=== PATIENT | male | born 1965 | race Caucasian/White ===

== ENCOUNTER 2023-11-02 08:38 | Inpatient (IN) | payer SELFPAY ==
[2023-11-01] VITALS (8 sets, daily range): BP systolic 85–168; BP diastolic 49–85; BMI 22.3
[2023-11-01 13:43] LABS: Glucose - Point of Care 192 mg/dl (70-99)
--- NOTE | 2023-11-01 13:47 | ED.GENMED ---
History of Present Illness
<DAVID Mark - Last Filed: 11/04/23 14:51>
General
Chief Complaint: Musculo-Skeletal Complaint
Source: patient
Exam Limitations: none
Time Seen by Provider: 11/01/23 13:41
Nursing documentation reviewed up to this point in time: agreed with
Travel History
Have you had any contact with someone who has COVID-19?: No
Do you have any symptoms of coronavirus? Fever > 100 degrees, chills, cough, shortness of breath, sore throat, loss of taste or smell, muscle aches, or headache?: No
History of Present Illness
History of Present Illness:
58 yr old male brought by EMS for evaluation. EMS reports reported he fell out of his car and has obvious deformity to right tib/fib . Patient is awake alert he is a poor historian he reports has a history of cardiac disease, stents
hypertension insulin-dependent diabetes hypothyroidism. He reports today prior to arrival he was driving had blurred vision however got to where he was going and then got out of the car and fell. He believes he may have got lightheaded dizzy but
does not believe he lost consciousness. He called EMS. He presents with an obvious right lower leg deformity. He denies any pain. He denies any chest pain shortness of breath. He does report that he was recently hospitalized at [facility] for fall and it was his 'low blood sugar.' He also reports 'they drained fluid from my lung. '
Patient presently has no complaints he denies any headache lightheadedness. He reported that he is on blood thinners, Eliquis.
Patient reports he was recently hospitalized at [facility] [place] in the beginning of October. It was documented that time the patient presented to the ER there due to hypoglycemia.
Past History
<DAVID Mark - Last Filed: 11/04/23 14:51>
Past History
ED Past Medical History: HTN, Hypercholesterolemia and IDDM
ED Past Surgical History: None
Social History
Tobacco: Former smoker
Alcohol: Occasional
Personal:
Living: with family
Review of Systems
<DAVID Mark - Last Filed: 11/04/23 14:51>
Review of Systems
Allergies reviewed?: Yes
All Other Systems: ROS reviewed and negative except as documented in HPI and ROS
Constitutional: Reports no symptoms; Denies fever, fatigue or chills
EENT: Reports no symptoms
Respiratory: Reports no symptoms; Denies trouble breathing
Cardiac: Denies chest pain, diaphoresis or palpitations
ABD/GI: Reports no symptoms; Denies abdominal pain, nausea or vomiting
: Reports no symptoms
Musculoskeletal: Reports other ( right lower leg deformity )
Skin: Reports no symptoms
Neurological: Reports dizzy; Denies headache, weakness or numbness
Psychiatric: Reports no symptoms
Phy Exam
<DAVID Mark - Last Filed: 11/04/23 14:51>
General Physical Exam
General Presentation: no apparent distress
General age: appears stated age
General Skin: warm and dry
General Habitus: normal
General Mental: alert
General Hydration: dry mucous membranes
Cardiovascular Exam
Cardiovascular Exam: regular rate/rhythm, no murmur and normal peripheral pulses
Pulmonary Exam
Pulmonary Exam: lungs clear and no respiratory distress
Gastrointestinal Exam
Gastrointestinal Exam: non tender, soft and other (Brown stool heme-negative)
Neurological Exam
Neurological Exam: alert and oriented x3
Musculoskeletal Exam
Musculoskeletal Exam: other (rle with strong pulses + obvious deformity to right lower leg )
Skin Exam
Skin Exam: normal color and warm/dry
Course
<DAVID Mark - Last Filed: 11/04/23 14:51>
Orders/Labs/Results
Orders:
Orders
11/01/23 13:39
Ankle, Right 3 view CR [CR Ankle - Right Min 3 Views *] Urgent
Comment:
Reason For Exam: pain and deformity.
CR Leg Tibia/fibula Right 2 Vw Urgent
Comment:
Reason For Exam: pain/ deformity
11/01/23 13:40
EKG [Electrocardiogram (*1)] Urgent
Reason for Study: Syncope
11/01/23 13:41
EKG- Treatment ONCE
11/01/23 13:56
Complete Blood Count/With Diff Urgent
Comprehensive Metabolic Panel Urgent
Ferritin Urgent
Comment: ADDON
Iron Urgent
Total Iron Binding Urgent
Vitamin B12 Urgent
Comment: ADDON
11/01/23 13:57
NT-proBNP Urgent
PT/INR [Prothrombin Time] Urgent
Troponin I Urgent
11/01/23 14:07
CT Head W/o Iv Contrast Urgent
Comment:
Reason For Exam: trauma
0.9% Sodium Chloride 1000 ml [Nss] 1,000 ml IV BOLUS
11/01/23 14:09
Chest [CR Chest - 2 Views ] Urgent
Comment:
Reason For Exam: dizzy
11/01/23 Dinner
Regular
At Your Request: Full Participation
11/01/23 16:03
Splints/Slings/Crut- Treatment ONCE
Location: Right
Type of Splint: Long Leg Posterior
11/01/23 16:22
CT Lower Ext W/o Iv Cont Rt Urgent
Comment:
Reason For Exam: fractures include down to ankle
11/01/23 17:05
Admit/Transfer Patient As Directed
Co-Sign Provider:
Level of Care: Observation services
Assign to:: Telemetry
Physician / Group: hospitalist
Diagnosis: fracture
Reason for Telemetry: Other
Other Reason for Telemetry: CHF history
Date to Stop Telemetry: 11/03/23
Time to Stop Telemetry: 11:00
11/01/23 17:07
Code Status As Directed
Resuscitation Status: Full Code
11/01/23 17:31
Add On- LAB Routine
Tests Added?: iron,tibc,ferritin,b12
11/01/23 18:34
0.9% Sodium Chloride 1000 ml [Nss] 1,000 ml IV 75 mls/hr
Dextrose 50%-Water [Dextrose 50% Syringe] 12.5 grams IV [id number] PRN
Glucagon [GlucaGen] 1 mg IM PRN PRN
11/01/23 18:34
ORTHOPEDIC CONSULT Routine
Consulting Provider: Colt Vasquez
Was physician already notified: Yes
Reason for consult: tib fib fracture
Activity As Directed
Activity Level: Bedrest
Bedside Glucose Monitoring As Directed
Frequency: AC&HS
Comment: Change to q6h if pt on TPN, tube feeding or not eating
Pneumatic Compression Sleeves As Directed
Type: Knee high
Vital Signs As Directed
Frequency: Per unit guidelines
DX Deep Vein Thrombosis Video Routine
11/01/23 20:00
HydrALAZINE [Apresoline] 25 mg PO BID
11/01/23 21:26
Pt Screening Request from Mario Alberto Routine
11/01/23 22:00
Insulin Detemir Levemir [Levemir] 8 units Subcutaneous Insulin Syringe [Syringe-Insulin] 0 unit SC HS
11/02/23
DX DVT Prevention Inpt Video Routine
11/02/23 00:11
Glucose Stat
Comment: pt accuchek > 400
11/02/23 01:15
Insulin Aspart Pen [Novolog Flexpen] 8 units SC NOW STA
11/02/23 02:13
Pt Screening Request from Mario Alberto Routine
11/02/23 02:53
Acetaminophen [Tylenol] 650 mg PO Q6HPRN PRN
11/02/23 06:58
Basic Metabolic Panel IN AM
Complete Blood Count/No Diff IN AM
Glycohemoglobin (HgbA1c) IN AM
Magnesium IN AM
Vitamin B12 IN AM
11/02/23 07:30
Insulin Aspart Corrective Low [Novolog Flexpen-Low Resistance] See Protocol SC AC
Levothyroxine [Synthroid] 112 mcg PO DAILY@0730
11/02/23 07:45
Weight Bearing Status As Directed
Weight bearing to: Right lower extremity
Type: Non Wt. bearing
11/02/23 08:00
Aspirin Low Dose EC [Aspir Low (Enteric Coated)] 81 mg PO DAILY
Atorvastatin [Lipitor] 40 mg PO DAILY
Carvedilol [Coreg] 12.5 mg PO DAILY
Multivitamin [Theragran] 1 tablet PO DAILY
11/02/23 08:04
Precautions As Directed
Type of Precautions: Other
Comment: fall precautions
11/02/23 08:05
Type+Screen Routine
11/02/23 08:23
CARDIOLOGY CONSULT Routine
Consulting Provider: Shane Amaya
Was physician already notified: Yes
Reason for consult: HFrEF cardiac risk assessment right leg fracture
11/02/23 08:28
Diabetes Management by Nurse Practitioner Routine
Consulting Provider: Lois Dawson
Was provider already notified?: Yes
Reason for Consult: Insulin Management
11/03/23 Breakfast
NPO
Allow oral meds: Yes
Allow clear liquids: No
11/03/23 07:00
Povidone Iodine 10% Solution [Povidone Iodine 10%] 114 ml 0.9% Sod Chloride 3000 ml Irr [Nss Irrigation Bag] 3,000 ml IRRIG OR
Tranexamic Acid 3,000 mg 0.9% Sodium Chloride 250 ml [Nss] 250 ml IRRIG OR
11/03/23 07:45
CeFAZolin 2 GRAM [Ancef] 2 grams in 10 ml IV PRE PROCEDURE
11/03/23 11:00
DC Protocol for Telemetry ONCE
Abnormal Lab Results
11/01/23 11/01/23 11/01/23
13:41 13:56 21:06
WBC 4.2 L 10^3/uL
(4.8-10.8)
RBC 2.65 L 10^6/uL
(4.70-6.10)
Hgb 8.6 L g/dL
(13.0-18.0)
Hct 25.4 L %
(39.0-52.0)
MCV 95.8 H fL
(80.0-94.0)
MCH 32.5 H pg
(27.0-31.0)
Absolute Lymphs (auto) 1.1 L 10^3/uL
(1.2-3.4)
Monocytes % 10.5 H %
(1.7-9.3)
Carbon Dioxide 32 H mmol/L
(22-30)
BUN 68 H mg/dl
(9-20)
Creatinine 2.7 H mg/dL
(0.7-1.3)
Glucose 169 H mg/dl
(70-99)
Hemoglobin A1c
Calcium 8.3 L mg/dl
(8.4-10.2)
Magnesium
TIBC 255 L ug/dl
(261-462)
Total Protein 6.1 L g/dl
(6.3-8.2)
POC Glucose 192 H mg/dl 400 H mg/dl
(70-99) (70-99)
Crossmatch IS Only
11/01/23 11/02/23 11/02/23
23:55 00:11 04:20
WBC
RBC
Hgb
Hct
MCV
MCH
Absolute Lymphs (auto)
Monocytes %
Carbon Dioxide
BUN
Creatinine
Glucose 394 H mg/dl
()
Hemoglobin A1c
Calcium
Magnesium
TIBC
Total Protein
POC Glucose 449 H mg/dl 122 H mg/dl
() ()
Crossmatch IS Only
11/02/23 11/02/23
06:58 08:05
WBC
RBC 2.23 L 10^6/uL
(4.70-6.10)
Hgb 7.2 L g/dL
(13.0-18.0)
Hct 21.5 L %
(39.0-52.0)
MCV 96.4 H fL
(80.0-94.0)
MCH 32.3 H pg
(27.0-31.0)
Absolute Lymphs (auto)
Monocytes %
Carbon Dioxide
BUN 63 H mg/dl
(920)
Creatinine 2.7 H mg/dL
(0.7-1.3)
Glucose 63 L mg/dl
(99)
Hemoglobin A1c 7.9 H %
(4.0-5.6)
Calcium 7.9 L mg/dl
(8.4-10.2)
Magnesium 2.4 H mg/dl
(1.6-2.3)
TIBC
Total Protein
POC Glucose
Crossmatch IS Only See Detail
11/02/23 06:58
11/02/23 06:58
Vital Signs
Initial and Last Documented VS:
Initial Vital Signs
Temp Pulse Resp BP Pulse Ox
98.2 F 60 18 85/55 97
11/01/23 13:35 11/01/23 13:35 11/01/23 13:35 11/01/23 13:35 11/01/23 13:35
Last Documented Vital Signs
Temp Pulse Resp BP Pulse Ox
98.5 F 75 12 129/71 99
11/04/23 13:29 11/04/23 14:04 11/04/23 13:29 11/04/23 14:04 11/04/23 08:20
Skin Tanner consulted with Physician
Skin Tanner consulted with physician?: Yes
Name of Physician Consulted: Edil
<Colt Metcalf, DO - Last Filed: 11/01/23 14:07>
Orders/Labs/Results
Orders:
Orders
11/01/23 13:39
Ankle, Right 3 view CR [CR Ankle - Right Min 3 Views *] Urgent
Comment:
Reason For Exam: pain and deformity.
CR Leg Tibia/fibula Right 2 Vw Urgent
Comment:
Reason For Exam: pain/ deformity
11/01/23 13:40
EKG [Electrocardiogram (*1)] Urgent
Reason for Study: Syncope
11/01/23 13:41
EKG- Treatment ONCE
11/01/23 13:56
Complete Blood Count/With Diff Urgent
Comprehensive Metabolic Panel Urgent
Ferritin Urgent
Comment: ADDON
Iron Urgent
Total Iron Binding Urgent
Vitamin B12 Urgent
Comment: ADDON
11/01/23 13:57
NT-proBNP Urgent
PT/INR [Prothrombin Time] Urgent
Troponin I Urgent
11/01/23 14:07
CT Head W/o Iv Contrast Urgent
Comment:
Reason For Exam: trauma
0.9% Sodium Chloride 1000 ml [Nss] 1,000 ml IV BOLUS
11/01/23 14:09
Chest [CR Chest - 2 Views ] Urgent
Comment:
Reason For Exam: dizzy
11/01/23 Dinner
Regular
At Your Request: Full Participation
11/01/23 16:03
Splints/Slings/Crut- Treatment ONCE
Location: Right
Type of Splint: Long Leg Posterior
11/01/23 16:22
CT Lower Ext W/o Iv Cont Rt Urgent
Comment:
Reason For Exam: fractures include down to ankle
11/01/23 17:05
Admit/Transfer Patient As Directed
Co-Sign Provider:
Level of Care: Observation services
Assign to:: Telemetry
Physician / Group: hospitalist
Diagnosis: fracture
Reason for Telemetry: Other
Other Reason for Telemetry: CHF history
Date to Stop Telemetry: 11/03/23
Time to Stop Telemetry: 11:00
11/01/23 17:07
Code Status As Directed
Resuscitation Status: Full Code
11/01/23 17:31
Add On- LAB Routine
Tests Added?: iron,tibc,ferritin,b12
11/01/23 18:34
0.9% Sodium Chloride 1000 ml [Nss] 1,000 ml IV 75 mls/hr
Dextrose 50%-Water [Dextrose 50% Syringe] 12.5 grams IV [id number] PRN
Glucagon [GlucaGen] 1 mg IM PRN PRN
11/01/23 18:34
ORTHOPEDIC CONSULT Routine
Consulting Provider: Colt Vasquez
Was physician already notified: Yes
Reason for consult: tib fib fracture
Activity As Directed
Activity Level: Bedrest
Bedside Glucose Monitoring As Directed
Frequency: AC&HS
Comment: Change to q6h if pt on TPN, tube feeding or not eating
Pneumatic Compression Sleeves As Directed
Type: Knee high
Vital Signs As Directed
Frequency: Per unit guidelines
DX Deep Vein Thrombosis Video Routine
11/01/23 20:00
HydrALAZINE [Apresoline] 25 mg PO BID
11/01/23 21:26
Pt Screening Request from Mario Alberto Routine
11/01/23 22:00
Insulin Detemir Levemir [Levemir] 8 units Subcutaneous Insulin Syringe [Syringe-Insulin] 0 unit SC HS
11/02/23
DX DVT Prevention Inpt Video Routine
11/02/23 00:11
Glucose Stat
Comment: pt accuchek > 400
11/02/23 01:15
Insulin Aspart Pen [Novolog Flexpen] 8 units SC NOW STA
11/02/23 02:13
Pt Screening Request from Mario Alberto Routine
11/02/23 02:53
Acetaminophen [Tylenol] 650 mg PO Q6HPRN PRN
11/02/23 06:58
Basic Metabolic Panel IN AM
Complete Blood Count/No Diff IN AM
Glycohemoglobin (HgbA1c) IN AM
Magnesium IN AM
Vitamin B12 IN AM
11/02/23 07:30
Insulin Aspart Corrective Low [Novolog Flexpen-Low Resistance] See Protocol SC AC
Levothyroxine [Synthroid] 112 mcg PO DAILY@0730
11/02/23 07:45
Weight Bearing Status As Directed
Weight bearing to: Right lower extremity
Type: Non Wt. bearing
11/02/23 08:00
Aspirin Low Dose EC [Aspir Low (Enteric Coated)] 81 mg PO DAILY
Atorvastatin [Lipitor] 40 mg PO DAILY
Carvedilol [Coreg] 12.5 mg PO DAILY
Multivitamin [Theragran] 1 tablet PO DAILY
11/02/23 08:04
Precautions As Directed
Type of Precautions: Other
Comment: fall precautions
11/02/23 08:05
Type+Screen Routine
11/02/23 08:23
CARDIOLOGY CONSULT Routine
Consulting Provider: Shane Amaya
Was physician already notified: Yes
Reason for consult: HFrEF cardiac risk assessment right leg fracture
11/02/23 08:28
Diabetes Management by Nurse Practitioner Routine
Consulting Provider: Lois Dawson
Was provider already notified?: Yes
Reason for Consult: Insulin Management
11/03/23 Breakfast
NPO
Allow oral meds: Yes
Allow clear liquids: No
11/03/23 07:00
Povidone Iodine 10% Solution [Povidone Iodine 10%] 114 ml 0.9% Sod Chloride 3000 ml Irr [Nss Irrigation Bag] 3,000 ml IRRIG OR
Tranexamic Acid 3,000 mg 0.9% Sodium Chloride 250 ml [Nss] 250 ml IRRIG OR
11/03/23 07:45
CeFAZolin 2 GRAM [Ancef] 2 grams in 10 ml IV PRE PROCEDURE
11/03/23 11:00
DC Protocol for Telemetry ONCE
Abnormal Lab Results
11/01/23 11/01/23 11/01/23
13:41 13:56 21:06
WBC 4.2 L 10^3/uL
(4.8-10.8)
RBC 2.65 L 10^6/uL
(4.70-6.10)
Hgb 8.6 L g/dL
(13.0-18.0)
Hct 25.4 L %
(39.0-52.0)
MCV 95.8 H fL
(80.0-94.0)
MCH 32.5 H pg
(27.0-31.0)
Absolute Lymphs (auto) 1.1 L 10^3/uL
(1.2-3.4)
Monocytes % 10.5 H %
(1.7-9.3)
Carbon Dioxide 32 H mmol/L
(22-30)
BUN 68 H mg/dl
(9-20)
Creatinine 2.7 H mg/dL
(0.7-1.3)
Glucose 169 H mg/dl
(99)
Hemoglobin A1c
Calcium 8.3 L mg/dl
(8.4-10.2)
Magnesium
TIBC 255 L ug/dl
(261-462)
Total Protein 6.1 L g/dl
(6.3-8.2)
POC Glucose 192 H mg/dl 400 H mg/dl
() ()
Crossmatch IS Only
11/01/23 11/02/23 11/02/23
23:55 00:11 04:20
WBC
RBC
Hgb
Hct
MCV
MCH
Absolute Lymphs (auto)
Monocytes %
Carbon Dioxide
BUN
Creatinine
Glucose 394 H mg/dl
()
Hemoglobin A1c
Calcium
Magnesium
TIBC
Total Protein
POC Glucose 449 H mg/dl 122 H mg/dl
() ()
Crossmatch IS Only
11/02/23 11/02/23
06:58 08:05
WBC
RBC 2.23 L 10^6/uL
(4.70-6.10)
Hgb 7.2 L g/dL
(13.0-18.0)
Hct 21.5 L %
(39.0-52.0)
MCV 96.4 H fL
(80.0-94.0)
MCH 32.3 H pg
(27.0-31.0)
Absolute Lymphs (auto)
Monocytes %
Carbon Dioxide
BUN 63 H mg/dl
(9-20)
Creatinine 2.7 H mg/dL
(0.7-1.3)
Glucose 63 L mg/dl
(70-99)
Hemoglobin A1c 7.9 H %
(4.0-5.6)
Calcium 7.9 L mg/dl
(8.4-10.2)
Magnesium 2.4 H mg/dl
(1.6-2.3)
TIBC
Total Protein
POC Glucose
Crossmatch IS Only See Detail
11/02/23 06:58
11/02/23 06:58
Vital Signs
Initial and Last Documented VS:
Initial Vital Signs
Temp Pulse Resp BP Pulse Ox
98.2 F 60 18 85/55 97
11/01/23 13:35 11/01/23 13:35 11/01/23 13:35 11/01/23 13:35 11/01/23 13:35
Last Documented Vital Signs
Temp Pulse Resp BP Pulse Ox
98.5 F 75 12 129/71 99
11/04/23 13:29 11/04/23 14:04 11/04/23 13:29 11/04/23 14:04 11/04/23 08:20
<DAVID Mark - Last Filed: 11/04/23 14:51>
MDM/Problems Addressed
Differential Diagnosis Includes:
Not limited to syncope, dizzy, dehydration, anemia, like fracture
MDM/Problems Addressed:
Patient is a 58 old male with diabetes, CAD stent presents to the ER for evaluation. Patient was dizzy and fell out of a car that he denies any actual syncope. Medics presented to the scene and patient was in his car. Patient has an obvious
deformity to right lower leg. He denies hitting his head. He denies any blood thinners. Patient denies any chest pain shortness of breath. No acute findings on EKG. CT head unremarkable for acute findings. Patient is an obvious fracture to
right proximal distal fibula and mid tibia. Patient placed in a posterior splint strong pulses. Patient denies any recent fever chills. Patient has a hemoglobin of 8.6 Brown stool heme-negative. Patient was here in 2021 hemoglobin 10.9. Patient
with renal insufficiency with a BUN of 68 creatinine 2.7 normal potassium 4.9.
Patient will require mission for further workup
Chronic conditions affecting care:
hypertension diabetes cardiac stent hypothyroidism
<DAVID Mark - Last Filed: 11/04/23 14:51>
*Radiology
Radiology exam reviewed: radiology read reviewed
*Pulse Oximetry
Patient hypoxic: no
*EKG
Interpreted by ED Provider?: Yes
Interpretation: normal
Heart Rate: 62
Rate: normal
QRS Pattern: normal QRS
Ischemia: no ischemia
*Critical Care Note
Total Time (30-74mins, 75-104mins- exclusive of procedures): Not Applicable
ED Attending Note
<DAVID Mark - Last Filed: 11/04/23 14:51>
-
Portions of this chart may have been created with voice recognition software.� Occasional wrong word or��sound alike� substitutions may have occurred due to the inherent limitations of voice recognition software.
<Colt Metcalf, DO - Last Filed: 11/01/23 14:07>
ED Attending Note
Patient seen and examined by attending physician: Yes
I performed the substantive portion of visit, reviewed & personally made and approve the management plan that is documented in note by myself or ELISE.: Yes
Discharge Plan
Departure
Patient Disposition: Admit
Date of Disposition: 11/01/23
Time of Disposition: 16:18
Admit to: Telemetry
Admit to doctor: hospitalist
Presentation/result/management discussed w/ accepting MD/DO: Hospitalist
Patient with high blood pressure during this ER visit?: Yes
Condition: Fair
Covid-19: Not Applicable
Discharge Problem:
Fracture of tibia and fibula, Anemia, Lightheadedness, Acute renal insufficiency
Interventions
Interventions:
*Risk Screen - Suicide Last Done: 11/01/23 13:35
*General Assessment Last Done: 11/01/23 13:35
*Neglect/Abuse Screening Last Done: 11/01/23 13:35
ED- Fall Risk Assessment Last Done: 11/01/23 13:43
*ED COVID-19 Vaccine History Last Done: 11/01/23 13:35
*Nursing Disposition Last Done: 11/01/23 18:43
ED-Musculoskeletal Assessment Last Done: 11/01/23 13:43
Discharge Date and Time
Discharge Date/Time: 11/01/23 18:43
[2023-11-01 14:07] LABS: % Basophils 0.5 % (0-2); % Eosinophils 3.8 % (0-6); % Immature Granulocytes 0.2 % (0-0.5); % Lymphocytes 24.9 % (20.5-51.1); % Monocytes 10.5 % (1.7-9.3); % Neutrophils 60.1 % (42.2-75.2); Absolute Eosinophils 0.2 10^3/uL (0-0.7); Absolute Lymphocytes 1.1 10^3/uL (1.2-3.4); Absolute Monocytes 0.4 10^3/uL (0.1-0.6); Absolute Neutrophils 2.5 10^3/uL (1.4-6.5); Hematocrit 25.4 % (39.0-52.0); Hemoglobin 8.6 g/dL (13.0-18.0); Mean Corp Hgb Conc. 33.9 g/dL (33.0-37.0); Mean Corpuscular Hgb 32.5 pg (27.0-31.0); Mean Corpuscular Volume 95.8 fL (80.0-94.0); Mean Platelet Volume 10.3 fL (7.4-10.4); Nucleated Red Blood Cells % 0 % (-); Platelet Count 154 10^3/uL (130-400); Red Blood Cell Count 2.65 10^6/uL (4.70-6.10); Red Cell Dist. Width 13.4 % (11.5-14.5); White Blood Cell Count 4.2 10^3/uL (4.8-10.8)
[2023-11-01] MEDS: NSS 1000 IV ×2 (14:17→20:59)
[2023-11-01 14:19] LABS: ALT (SGPT) 13 U/L (0-50); AST (SGOT) 28 U/L (17-59); Albumin 3.7 g/dl (3.5-5.0); Alkaline Phosphatase 99 U/L (38-126); Blood Urea Nitrogen 68 mg/dl (9-20); Calcium 8.3 mg/dl (8.4-10.2); Carbon Dioxide 32 mmol/L (22-30); Chloride 98 mmol/L (98-107); Glucose 169 mg/dl (70-99); Potassium 4.9 mmol/L (3.5-5.1); Sodium 135 mmol/L (135-145); Total Bilirubin 0.4 mg/dl (0.2-1.3); Total Protein 6.1 g/dl (6.3-8.2); eGFR 26.66
[2023-11-01 14:22] LABS: INR 1.01; PT 13.1 Sec (11.4-14.6)
[2023-11-01 14:31] LABS: NT-proBNP 3550 pg/ml; Troponin I 0.014 ng/ml
--- NOTE | 2023-11-01 16:31 | PHANOTE ---
med rec note- patient seemed to just answer yes to all my question, he did not know the names of the insulin he use patient has not ecw and i asked he about medication that weren't on his list and he said yes to them, had to use pharmacy records
--- NOTE | 2023-11-01 17:12 | HPS.HSE ---
Family Physician
-
Family Physician: NO INTERVIEW UNKNOWN
Chief Complaint
-
Fall
History of Present Illness
58-year-old male who is not from this area and was driving here and had gotten out of the car when he felt really dizzy and had a fall. Denies any chest pain or shortness of breath. He takes diuretics. Unclear if he was taking torsemide and Lasix
. Both on his medicines list.
Patient was admitted to [facility] recently for altered mental status and was found to have hypoglycemia. He was reportedly sitting in a chair at work where coworkers noticed he was less responsive and acting abnormal. Blood sugar reading
from EMS was low he was given D10 and his mentation returned to normal. At that time he was taking 10 to 12 units of Lantus and 12 to 16 units of lispro 3 times daily with meals. His heart with hospital course was complicated with pleural
effusion-transudate, acute hypoxic respiratory failure, pneumonia. Creatinine on 10/07/2023 was 2.95 he was also treated for acute kidney injury, acute on chronic systolic heart failure, aspiration pneumonia he was there from 09/29/2023 to 10/10/2023
Medical History
Past Medical History
Past Medical History: Reports CAD and CHF
Additional Past Medical History:
Cardiac stent, pleural effusion, diabetes, hypertension, hypothyroidism, sleep apnea on 3 L of oxygen at night
Past Surgical History: Reports Other
Additional Past Surgical History:
Cardiac stent
Social History
Tobacco: Former Smoker
Alcohol: None
Drug: None
Living: With Family
Employment: Employed (Works for [employer])
Family History
Family History: Cancer (Mother had colon cancer) and Diabetes (Father)
Allergies / Home Medications
Allergies reflects when Allergies were last updated in [facility].
Home Medications with original date entered in [facility]
Allergy/Medication List:
Allergies
Allergy/AdvReac Type Severity Reaction Status Date / Time
No Known Allergies Allergy Verified 11/01/23 13:43
Home Medications
aspirin 81 mg tablet,delayed release 81 mg PO DAILY 02/05/22
atorvastatin 40 mg tablet 40 mg PO DAILY 02/05/22
carvedilol 12.5 mg tablet 12.5 mg PO DAILY 02/05/22
insulin lispro 100 unit/mL subcutaneous solution (Humalog U-100 Insulin) 10 - 12 unit SC AC 02/05/22
dapagliflozin propanediol 10 mg tablet (Farxiga) 10 mg PO DAILY 11/01/23
furosemide 40 mg tablet (Lasix) 40 mg PO DAILY 11/01/23
hydralazine 50 mg tablet 50 mg PO BID 11/01/23
insulin detemir U-100 100 unit/mL (3 mL) subcutaneous pen (Levemir FlexPen) 8 unit SC BID 11/01/23
levothyroxine 112 mcg tablet (Synthroid) 112 mcg PO DAILY 11/01/23
sacubitril 49 mg-valsartan 51 mg tablet (Entresto) 1 tab PO BID 11/01/23
therapeutic multivitamin 1 tab PO DAILY 11/01/23
torsemide 20 mg tablet 20 mg PO DAILY 11/01/23 -this was noted on medications listed from outside hospital
Review of Systems
-
History Source: Patient
A 12 point ROS was completed and negative except as noted: Yes
Respiratory: Denies Cough or Trouble Breathing
Cardiac: Denies Chest Pain
Abdomen/GI: Denies Abdominal Pain
Neurological: Reports Dizzy
Physical Exam
Vital Signs
Vital Signs
Temp Pulse Resp BP Pulse Ox
98.2 F 70 10 142/69 96
11/01/23 13:35 11/01/23 14:30 11/01/23 14:30 11/01/23 14:30 11/01/23 17:00
Physical Exam
General: No Apparent Distress and Comfortable
Respiratory: Clear
Cardiac: S1/S2 and Regular Rhythm
GI: Soft, Non Tender and Normal Bowel Sounds
Musculoskeletal: Other (Right lower extremity on immobilizer)
Neuro: Nonfocal/grossly intact
Laboratory Results
-
11/01/23 13:56
11/01/23 13:56
Laboratory Results
PT 13.1 Sec (11.4-14.6) 11/01/23 13:57
INR 1.01 11/01/23 13:57
Total Bilirubin 0.4 mg/dl (0.2-1.3) 11/01/23 13:56
AST 28 U/L (17-59) 11/01/23 13:56
ALT 13 U/L (0-50) 11/01/23 13:56
Alkaline Phosphatase 99 U/L (38-126) 11/01/23 13:56
Troponin I 0.014 ng/ml 11/01/23 13:57
Data Reviewed
-
Diagnostic Radiology: Image Personally Visualized and interpreted (Chest x-ray-no infiltrates) and Other (X-ray of the [id number]-aapgk-fibula fracture)
CT Scan: Report Reviewed by me (CT of the head-posterior region of the right lentiform nucleus small focus of CSF density likely choroid fissure cyst differential with small focus of old infarction.)
Medical Tests (Nuc Med, Echo, EKG etc): Image Personally Visualized and interpreted (Sinus rhythm no ischemia)
Impression/Plan
-
IMPRESSION/PLAN:
# Right tib-fib fracture
Admit
Orthopedic evaluation for surgery
Acceptable risk for history and today's exam
# Likely reason for dizziness is patient's acute kidney injury
IV fluids
Hold Entresto, Lasix, torsemide
Patient will be on both torsemide and Lasix
# Type 2 diabetes-Levemir 8 units at bedtime daily with sliding scale
Patient was on Levemir 8 units twice daily and insulin lispro 10 to 12 units AC prior to arrival
Accu-Cheks with sliding scale coverage
# Acute kidney injury-hold Entresto and Lasix
His med list also includes torsemide
Possibly he was taking both. Discontinue torsemide
IV fluids
# Chronic heart failure with reduced ejection fraction-hold Entresto and Lasix
Continue beta-blockers. Hold Entresto and Lasix
# Coronary artery disease with stents
Continue aspirin, statin, Coreg
# Recent admission at outside hospital for acute respiratory failure/aspiration pneumonia/Right pleural effusion-negative for malignancy
# Hypothyroidism-continue Synthroid
# Hypertension
Patient was hypotensive on admission better with IV fluids
Continue hydralazine but decrease dose to 25 twice daily
Patient was on 50 twice daily as outpatient
Continue Coreg daily
# Anemia-check iron studies
# Hyperlipidemia-continue atorvastatin
# Pulmonary nodules
# DVT prophylaxis-subcutaneous heparin
# Full code
[2023-11-01 18:20] LABS: Iron 123 ug/dl (49-181)
[2023-11-01 18:29] LABS: Percent Saturation 48 % (20-50); Total Iron Binding Capacity 255 ug/dl (261-462)
[2023-11-01 19:14] LABS: Vitamin B12 850 pg/ml (239-931)
[2023-11-01] MEDS: APRESOLINE 25 MG PO (21:02)
[2023-11-01 21:08] LABS: Glucose - Point of Care 400 mg/dl (70-99)
[2023-11-01] MEDS: LEVEMIR 0.0800000000000000017 UNITS SC (21:51)
[2023-11-01 23:57] LABS: Glucose - Point of Care 449 mg/dl (70-99)
[2023-11-02] VITALS (10 sets, daily range): BP systolic 125–179; BP diastolic 67–91
[2023-11-02 00:32] LABS: Glucose 394 mg/dl (70-99)
[2023-11-02] MEDS: NOVOLOG FLEXPEN 8 UNITS SC (02:15)
[2023-11-02] MEDS: TYLENOL 650 MG PO ×3 (03:05→16:38)
[2023-11-02 04:20] LABS: Glucose - Point of Care 122 mg/dl (70-99)
--- NOTE | 2023-11-02 06:50 | W.PN.HOSP.TC ---
Today's Communication/Plan
-
Blood Pressure Control
Glycemic Control
acceptable perioperative cardiac risk for orthopedic surgery
Monitor H&H transfuse for goal Hgb>8
Assessment / Plan
Assessment / Plan
Physical Exam
General: No Apparent Distress and Comfortable
Respiratory: Clear
Cardiac: S1/S2 and Regular Rhythm
GI: Soft, Non Tender and Normal Bowel Sounds
Musculoskeletal: Other (Right lower extremity on immobilizer)
Neuro: Nonfocal/grossly intact
58M CAD stent HFmrEF DM HTN Hypothyroidism JESSENIA CPAP 3L at night presents following fall with comminuted fractures right lower extremity and JAMAR possible overdiuresis.
# Right tib-fib fracture
Admit
Orthopedic evaluation for surgery
Cardio eval appreciated acceptable perioperative cardiac risk for surgery as above
# Likely reason for dizziness is patient's acute kidney injury
cautious gentle fluid IV hydration
cont Hold Entresto, Lasix, torsemide
# Type 2 diabetes- Brittle Diabetic
Diabetes MOBILE UI/UX DESIGNER consult appreciated
cont insulin regimen, titration as necessary, holds as necessary for NPO surgery
# Acute kidney injury-hold Entresto and Lasix
His med list also includes torsemide
Possibly he was taking both.� Discontinue torsemide
cautious gentle fluid IV hydration
# Chronic heart failure with reduced ejection fraction-hold Entresto and Lasix
Continue beta-blockers.� Hold Entresto and Lasix
BNP elevated possibly d/t Jamar as oppose to heart failure
ECHO appreciated EF 45-50% stage I diastolic dysfunction no significant valve abn's
# Coronary artery disease with stents
Continue aspirin, statin, Coreg
# Recent admission at outside hospital for acute respiratory failure/aspiration pneumonia/Right pleural effusion-negative for malignancy
# Hypothyroidism-continue Synthroid
# Hypertension
Patient was hypotensive on admission better with IV fluids
Continue hydralazine but decrease dose to 25 twice daily
hydralazine prn
Continue Coreg daily
# Anemia
Iron studies appreciated possible anemia of chronic disease
transfused 1PRBC for goal Hgb>8 in lieu of cardiac hx and upcoming surgical procedure, responded well Hgb 7.2 to 8.5 following transfusion
#Hypocalcemia
monitor and replete as necessary
# Hyperlipidemia-continue atorvastatin
# Pulmonary nodules
# DVT prophylaxis-subcutaneous heparin
# Full code
discussed with patient and his Lina
I spent a total of 58 minutes with the patient or on the floor. More than 50% of this time involved counseling and coordination of care.
Anticipated Discharge: > 48 hours
Subjective/Interval History
-
Date of Service: November 02, 2023
No acute distress resting comfortably in bed.
Objective Data
-
Labs:
Laboratory Results
11/02/23 11/02/23
00:11 06:00
WBC Pending
Hgb Pending
Hct Pending
Plt Count Pending
Sodium Pending
Potassium Pending
Chloride Pending
Carbon Dioxide Pending
BUN Pending
Creatinine Pending
Glucose 394 H Pending
Calcium Pending
Vital Signs:
Vital Signs
Temp Pulse Resp BP Pulse Ox
98.7 F 83 18 125/73 96
11/02/23 03:43 11/02/23 03:43 11/02/23 03:43 11/02/23 03:43 11/02/23 03:43
I&O
10/31/23 11/01/23 11/02/23
06:59 06:59 06:59
Intake Total 480 / 480
Output Total 900 / 900
Balance -420 / -420
[2023-11-02 07:33] LABS: Glucose - Point of Care 76 mg/dl (70-99)
--- NOTE | 2023-11-02 07:51 | CON.ORTHO ---
Consultation
-
Date/Time Consultation Requested: 11/01/2023 @ 18:34
Date/Time Consultation Performed: 11/02/2023 @ 7:30
Requesting Provider: Ace Neville MD
Performing Provider: Vidal العلي PA-C for Dr. Colt Vasquez
Reason for Consultation: Right Tib/Fib Fx
Consultation - Orthopedics
History
HPI: The patient is a 58-year-old male with a past medical history significant for hypertension, hypercholesterolemia, hypothyroidism, IDDM, CAD, and sleep apnea who presented to [facility] via EMS yesterday afternoon
after sustaining a mechanical fall. Patient reports that he attempted to step out of his car, when he felt lightheaded and dizzy, and subsequently had a fall. EMS noted obvious deformity to the right tib/fib. Patient does not believe he lost
consciousness. Patient reports that he lives in [place] and he was driving to visit his in [place]. Plain radiographs were obtained in the ED, revealing fractures of the right tip/fib. Currently, patient is lying in bed in a posterior
leg splint and reports that his pain is well-controlled. Patient reports that he takes a baby Aspirin once daily, however denies any further anticoagulant use. He denies any other injuries. Orthopedic surgery was consulted regarding surgical
fixation of his right tib/fib fracture.
PAST MEDICAL HISTORY: Hypertension, hypercholesterolemia, IDDM, CAD, CHF, sleep apnea on 3 L of oxygen at night, history of cardiac stent, history of pleural effusion.
PAST SURGICAL HISTORY: Cardiac stent.
SOCIAL HISTORY: Former smoker. Reports occasional alcohol use. Denies illicit drug use. Patient works for a [employer] company ([employer] Fully ambulatory at baseline.
FAMILY HISTORY: Non-contributory.
Review of Systems: 12-point review of systems obtained and negative except those mentioned in the HPI.
Allergies / Home Medications
Allergy/AdvReac Type Severity Reaction Status Date / Time
No Known Allergies Allergy Verified 11/01/23 13:43
Medication Instructions Recorded
aspirin 81 mg tablet,delayed 81 mg PO DAILY 02/05/22
release
atorvastatin 40 mg tablet 40 mg PO DAILY 02/05/22
carvedilol 12.5 mg tablet 12.5 mg PO DAILY 02/05/22
insulin lispro 100 unit/mL 10 - 12 unit SC AC 02/05/22
subcutaneous solution (Humalog
U-100 Insulin)
dapagliflozin propanediol 10 mg 10 mg PO DAILY 11/01/23
tablet (Farxiga)
furosemide 40 mg tablet (Lasix) 40 mg PO DAILY 11/01/23
hydralazine 50 mg tablet 50 mg PO BID 11/01/23
insulin detemir U-100 100 unit/mL 8 unit SC BID 11/01/23
(3 mL) subcutaneous pen (Levemir
FlexPen)
levothyroxine 112 mcg tablet 112 mcg PO DAILY 11/01/23
(Synthroid)
sacubitril 49 mg-valsartan 51 mg 1 tab PO BID 11/01/23
tablet (Entresto)
therapeutic multivitamin 1 tab PO DAILY 11/01/23
torsemide 20 mg tablet 20 mg PO DAILY 11/01/23
Vital Signs / Lab Results
Temp Pulse Resp BP Pulse Ox
98.7 F 83 18 125/73 96
11/02/23 03:43 11/02/23 03:43 11/02/23 03:43 11/02/23 03:43 11/02/23 03:43
RADIOGRAPHIC FINDINGS:
Plain radiographs of the right ankle, including AP, lateral, and oblique views was obtained at [facility] on 11/01/2023 and was made available for my review today. Findings: There is a comminuted fracture of the distal right tibia, with a
medial 'butterfly fragment'. There is mild lateral angulation of the fracture apex. There is mild lateral displacement of the distal fracture fragment and mild posterior displacement of the distal fracture fragment. There is an oblique fracture
through the distal right fibula with mild medial and minimal posterior displacement. Mild lateral angulation of the fracture apex. There is a comminuted fracture of the right proximal fibular shaft near the fibular head, with no significant
displacement. No evidence for fracture of the proximal tibia. The ankle mortise appears symmetric. Vascular calcifications noted. Impression: Fractures of the right tibia and fibula as described.
Plan radiographs of the right tib-fib, including AP and lateral views was also obtained at [facility] on 11/01/2023 and was made available for my review today. Findings: There is a comminuted fracture of the distal right tibia, with a medial
'butterfly fragment'. There is mild lateral angulation of the fracture apex. There is mild lateral displacement of the distal fracture fragment and mild posterior displacement of the distal fracture fragment. There is an oblique fracture through
the distal right fibula with mild medial and minimal posterior displacement. Mild lateral angulation of the fracture apex. There is a comminuted fracture of the right proximal fibular shaft near the fibular head, with no significant displacement.
No evidence for fracture of the proximal tibia. The ankle mortise appears symmetric. Vascular calcifications noted. Impression: Fractures of the right tibia and fibula as described.
CT scan of the right lower extremity was obtained at [facility] on 11/01/2023 and was made available for my review today. Findings: There is a comminuted fracture of the right distal tibia, centered approximately 6.5 cm superior to the tibial
plafond. This fracture has a medial slightly displaced 'butterfly fragment'. Mild lateral angulation of the fracture apex. There is an oblique fracture through the distal right fibula with one half shaft width medial displacement of the distal
fracture fragment and slight overriding the fracture fragments. There is no evidence for fracture extension to the tibial plafond. No evidence for injury to the talus. There is a comminuted minimally displaced fracture of the fibular head. No
findings to suggest fracture to the proximal tibia. Impression: Fractures of the distal right tibia and fibula as described. There is also a comminuted fracture of the right fibular head.
PHYSICAL EXAM:
General: Well-developed, well-nourished male in no acute distress.
HEENT: NCAT, sclera anicteric, normal conversational hearing.
Heart: No JVD.
Lungs: Normal work of breathing on room air.
MSK: Focused examination of the right lower extremity reveals posterior leg splint intact. This was taken down for further evaluation. There is edema noted about the right lower extremity, ankle and foot. DP and PT pulses faint secondary to
underlying edema, however palpable. The compartments are compressible. Capillary refills less than 2 seconds. Able to dorsiflex right ankle without evidence for foot drop. Able to wiggle all toes. Further range of motion deferred secondary to
known fracture. Sensation is intact to light touch.
Assessment / Plan
ASSESSMENT: 58-year-old male with right tib-fib fracture.
PLAN: Unfortunately, this patient has sustained a right tib-fib fracture following a mechanical fall out of his car yesterday. We discussed the treatment options. After thorough discussion, shared decision was to proceed with operative fixation.
The risks, benefits, potential complications, and expected postoperative course were reviewed. We will plan for the OR on 11/03/2023, for right tibia IM nail versus ORIF, right fibula ORIF under the direction of Dr. Evans. I spoke to the
patient's primary team today, who will be consulting cardiology for preoperative clearance. Patient is to remain NPO pMN 11/02/2023. He is to remain nonweightbearing to the right lower extremity. Continue with elevation and ice therapy for edema
control. Continue with pain management per primary team as needed. Preoperative Ancef, TXA irrigation, and iodine irrigation on-call to the OR. Type and screen ordered. Case posted with the OR commercial front load driver. Orthopedic surgery will continue to
follow along.
[2023-11-02 08:14] LABS: Hematocrit 21.5 % (39.0-52.0); Hemoglobin 7.2 g/dL (13.0-18.0); Mean Corp Hgb Conc. 33.5 g/dL (33.0-37.0); Mean Corpuscular Hgb 32.3 pg (27.0-31.0); Mean Corpuscular Volume 96.4 fL (80.0-94.0); Mean Platelet Volume 10.4 fL (7.4-10.4); Platelet Count 149 10^3/uL (130-400); Red Blood Cell Count 2.23 10^6/uL (4.70-6.10); Red Cell Dist. Width 13.3 % (11.5-14.5); White Blood Cell Count 5.1 10^3/uL (4.8-10.8)
[2023-11-02 08:43] LABS: Blood Urea Nitrogen 63 mg/dl (9-20); Calcium 7.9 mg/dl (8.4-10.2); Carbon Dioxide 30 mmol/L (22-30); Chloride 104 mmol/L (98-107); Estimated Creatinine Clearance 28 ml/min; Glucose 63 mg/dl (70-99); Magnesium 2.4 mg/dl (1.6-2.3); Potassium 4.5 mmol/L (3.5-5.1); Sodium 138 mmol/L (135-145); eGFR 26.66
[2023-11-02] MEDS: NOVOLOG FLEXPEN-LOW RESISTANCE SC (08:48)
--- NOTE | 2023-11-02 08:52 | PN.DE.MGMTRT ---
Addendum entered and electronically signed by DAVID Gray 11/02/23 13:32:
Pt's Nurse reports pre lunch time blood sugar of 426. Stat Venous glucose pending.
Will increase AC NovoLog to 10 units.
Pt for OR tomorrow. HOLD AC NovoLog while NPO and use corrective insulin if needed.
Original Note:
Insulin Management
- -
11/02/2023: Diabetes Management Consult
58 year old male admitted s/p Right Tib-Fib fracture. PMH includes: HTN, CAD s/p stent, CHF, HLD, JESSENIA on 3 L of oxygen at night, H/o pleural effusion and T2DM, A1C 7.9%, states he was taking Humalog 12 units before meals, Levemir 8 units BID and
Farxiga 10mg daily. DM group is consulted for labile blood sugars.
Of note, pt had a POC glucose of 400@ 21:06, he received Levemir 8 units, his finger stick glucose trended up to 449 @23:55-->Venous draw was 394, pt received 8 units of Aspart and by 06:58 is venous glucose was 63, pt states that it is likely that
the hypoglycemia was a result of the 8 units of Aspart he received at 2AM. States he routinely sees Dr. Toy Dumont?. Says he uses the [employer] ReliOn Meter for glucose monitoring at home.
Will resume his OP regimen. Start Levemir 8 units BID, NovoLog 4 units AC and Farxiga 10mg daily
Cont corrective insulin with meals, change diet to 1800 araceli.
Diabetes History
- -
Type of Diabetes: 2 requiring insulin
Pre-Admission Diabetes Regimen
11/01/23 11/02/23
13:56 06:58
Creatinine 2.7 H 2.7 H
Insulin Pump Settings
IP Diabetes Regimen
11/01/23 11/01/23 11/01/23
13:41 13:56 21:06
Glucose 169 H
POC Glucose 192 H 400 H
11/01/23 11/02/23 11/02/23
23:55 00:11 04:20
Glucose 394 H
POC Glucose 449 H 122 H
11/02/23 11/02/23
06:58 07:32
Glucose 63 L
POC Glucose 76
Patient Education
[2023-11-02] MEDS: APRESOLINE 25 MG PO ×2 (08:54→21:34)
[2023-11-02] MEDS: ASPIR LOW (ENTERIC COATED) 81 MG PO (08:54)
[2023-11-02] MEDS: COREG 12.5 MG PO (08:54)
[2023-11-02] MEDS: LIPITOR 40 MG PO (08:54)
[2023-11-02] MEDS: THERAGRAN 1 TABLET PO (08:54)
[2023-11-02] MEDS: SYNTHROID 112 MCG PO (08:54)
[2023-11-02 09:08] LABS: Glycohemoglobin (HgbA1c) 7.9 % (4.0-5.6)
[2023-11-02 09:30] LABS: Vitamin B12 836 pg/ml (239-931)
--- NOTE | 2023-11-02 10:52 | CON.CAR ---
Addendum entered and electronically signed by Shane Amaya MD 11/02/23 13:08:
58-year-old man became lightheaded and dizzy stepping out of his car today, lives in [place], sustained a right tibia/fib fracture, now for ORIF. He has a history of recent hospitalization at [facility], was hypoglycemic at work, hospital stay
complicated by acute on chronic HF imp EF with pleural effusion that was transudative, respiratory failure with pneumonia, JAMAR with creatinine of 2.95. Has been evaluated for cardiac amyloidosis with a negative endomyocardial biopsy., Diabetic
retinopathy,
PMH: Hypertension, hypercholesterolemia, hypothyroidism, diabetes, episodes of hypoglycemia with altered mental status, transudative pleural effusion with respiratory failure, pneumonia, CAD with PCI, obstructive sleep apnea, presumed diabetic
retinopathy, nephropathy, neuropathy
PSH: No surgeries
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
FH: Noncontributory
ROS: Negative except as above
145/77, pulse 86, respiratory 16, weight is 64.4 kg
Chronically ill-appearing, right lower extremity wrapped, head neck exam unremarkable, lungs relatively clear, cardiac with elevated neck veins, soft systolic murmur at apex, no obvious carotid bruits, abdomen benign extremities without much edema
Hemoglobin is 7.2, had been 8.6 on admission, BUN and creatinine 63 and 2.7, stable, troponin 0.014, proBNP 3550
Chest x-ray: Cardiomegaly, blunting of costophrenic angles
Hemoglobin 7.2, BUN is 63, creatinine is 2.7, hemoglobin A1c 7.9, troponin 0.014, proBNP 3550
ECG sinus rhythm, normal ECG
Impression:
Presented 11/01/2023 with mechanical fall
Right tib-fib fracture
JAMAR
Acute on chronic anemia troponin was negative on presentation.� proBNP 3550
Coronary artery disease
s/p WILMAR of large first septal assistant engineer branchHeart failure with recovered cardiomyopathy
Ischemic cardiomyopathy, recovered on Echo 02/2023
Myocardial biopsy 06/05/2022 cardiomyocytes with occasional block shaped nuclei, Congo red special stain is negative
Recurrent pleural effusions follows with Dr. Arenas thoracic surgery
Hypertension
Hyperlipidemia
Hypothyroidism
Type 2 diabetes
Chronic anemia
Obstructive sleep apnea, uses 3 L of oxygen at night
History of Pleural effusion
history of pneumonia
Sinus bradycardia on high dose Coreg
Chronic anemia
Orthostatic hypotension
Plan:
He has remarkable number of underlying core morbidities, and has some evidence of chronic HFpEF at present. However, his cardiac status is relatively stable and he can proceed as planned to the operating room at acceptable perioperative cardiac
risk. Farxiga should probably be held, carvedilol should be continued, ideally aspirin should also be continued as well given a history of prior PCI with WILMAR.
.
We will check echocardiogram.
.
Given elevated neck veins I would be cautious and administering IV fluid. Uncertain as to the acuity of his kidney disease, suspect substantial component of CKD with recent JAMAR, for now we will hold Entresto.
.
We will continue to follow.
Original Note:
Consultation
Consultation Request
Date/Time Consultation Requested: 11/02/2023
Date/Time Consultation Performed: 11/02/2023
Requesting Provider: Dr. Chin
Performing Provider: Naomi Saeed PA-C for Dr. TIANA Amaya
Reason for Consultation: Preop clearance
Medical History
-
History of Present Illness:
Patient is a 58 YOF with PMH significant for CAD s/p WILMAR of large first septal assistant engineer branch, heart failure with recovered ejection fraction, cardiomyopathy recovered, hypertension, hyperlipidemia, hypothyroidism, recurrent pleural effusions,
orthostatic hypotension, diabetes, obstructive sleep apnea who utilizes oxygen at night who presents to emergency department 11/01/2023 after he sustained a mechanical fall getting out of his car. Patient reports he felt lightheaded and dizzy prior
to his fall but denies loss of consciousness. He was noted to have right tib-fib fracture on x-ray. Orthopedics will be performing surgical fixation and cardiology being asked to see patient for preoperative clearance. At time of this evaluation
patient denies chest pain, shortness of breath, dizziness, lightheadedness, edema, orthopnea or PND.
Patient is a rather poor historian. I was able to obtain records from his outpatient dimension specification inspector which demonstrates he had a drug-eluting stent placed to large first septal assistant engineer branch in May 2022. He has been noted to have waxing and
waning cardiomyopathy over the years. Most recent echocardiogram from February 2023 with improved ejection fraction of 65%. He also had abnormal speckling on echo and was worked up for cardiac amyloid with endocardial biopsy which was negative.
Past medical history:
Coronary artery disease
s/p WILMAR of large first septal assistant engineer branch
Heart failure with recovered cardiomyopathy
Ischemic cardiomyopathy, recovered on Echo 02/2023
Myocardial biopsy 06/05/2022 cardiomyocytes with occasional block shaped nuclei, Congo red special stain is negative
Recurrent pleural effusions follows with Dr. Arenas thoracic surgery
Hypertension
Hyperlipidemia
Hypothyroidism
Type 2 diabetes
Chronic anemia
Obstructive sleep apnea, uses 3 L of oxygen at night
History of Pleural effusion
history of pneumonia
Sinus bradycardia on high dose Coreg
Chronic anemia
Orthostatic hypotension
Past Medical History
Past Medical History: Other (see HPI)
Past Surgical History: Cardiac (s/p WILMAR of large first septal assistant engineer branch 05/2022) and Other (Hecker teeth extraction, eye surgery, thoracentesis)
Social History
Tobacco: Former Smoker
Alcohol: Occasional
Drug: None
Personal: Other ()
Living: With Family (Step-daughter and her boyfriend)
Employment: Employed ([employer])
Family History
Family History: Reviewed & Not Pertinent
Allergies / Home Medications
Allergy/AdvReac Type Severity Reaction Status Date / Time
No Known Allergies Allergy Verified 11/01/23 13:43
Medication Instructions Recorded Confirmed Type
aspirin 81 mg tablet,delayed 81 mg PO DAILY 02/05/22 11/01/23 History
release
atorvastatin 40 mg tablet 40 mg PO DAILY 02/05/22 11/01/23 History
carvedilol 12.5 mg tablet 12.5 mg PO DAILY 02/05/22 11/01/23 History
insulin lispro 100 unit/mL 10 - 12 unit SC AC 02/05/22 11/01/23 History
subcutaneous solution (Humalog
U-100 Insulin)
dapagliflozin propanediol 10 mg 10 mg PO DAILY 11/01/23 11/01/23 History
tablet (Farxiga)
furosemide 40 mg tablet (Lasix) 40 mg PO DAILY 11/01/23 11/01/23 History
hydralazine 50 mg tablet 50 mg PO BID 11/01/23 11/01/23 History
insulin detemir U-100 100 unit/mL 8 unit SC BID 11/01/23 11/01/23 History
(3 mL) subcutaneous pen (Levemir
FlexPen)
levothyroxine 112 mcg tablet 112 mcg PO DAILY 11/01/23 11/01/23 History
(Synthroid)
sacubitril 49 mg-valsartan 51 mg 1 tab PO BID 11/01/23 11/01/23 History
tablet (Entresto)
therapeutic multivitamin 1 tab PO DAILY 11/01/23 11/01/23 History
torsemide 20 mg tablet 20 mg PO DAILY 11/01/23 11/01/23 History
Review of Systems
-
History Source: Patient
All other systems: Negative unless noted
Physical Exam
Vital Signs
Temp Pulse Resp BP Pulse Ox
98.6 F 86 16 145/77 95
11/02/23 07:45 11/02/23 07:45 11/02/23 07:45 11/02/23 07:45 11/02/23 07:45
GEN: No distress, awake, Ox3
HEENT: supple, anicteric, mmm
LUNGS: CTA, no wheezes/rales
CV: Reg, S1/S2, no murmur, rubs, gallops
ABD: soft, BS+, NT/ND
EXT: No edema, clubbing or cyanosis
NEURO: Gross non-focal
SKIN: No rash, warm, dry, pink
Lab Results
11/02/23 06:58
Troponin I 0.014 ng/ml 11/01/23 13:57
Rnm-K-Bqisvaalcnp Pept 3550 pg/ml 11/01/23 13:57
Impression / Plan
-
PCP:Dr. Florez
Outpatient dimension specification inspector: [facility] cardiology
Impression:
Presented 11/01/2023 with mechanical fall
Right tib-fib fracture
JAMAR
Acute on chronic anemia troponin was negative on presentation. proBNP 3550
Coronary artery disease
s/p WILMAR of large first septal assistant engineer branch
Heart failure with recovered cardiomyopathy
Ischemic cardiomyopathy, recovered on Echo 02/2023
Myocardial biopsy 06/05/2022 cardiomyocytes with occasional block shaped nuclei, Congo red special stain is negative
Recurrent pleural effusions follows with Dr. Arenas thoracic surgery
Hypertension
Hyperlipidemia
Hypothyroidism
Type 2 diabetes
Chronic anemia
Obstructive sleep apnea, uses 3 L of oxygen at night
History of Pleural effusion
history of pneumonia
Sinus bradycardia on high dose Coreg
Chronic anemia
Orthostatic hypotension
Echo 03/27/2023: EF 65%, mild concentric LVH, stage I DD. No significant valvular disease
Echo 09/25/2022: EF 45%, grade 1 DD. Mildly dilated left atrium. Mild to moderate concentric LVH. Speckled appearance to myocardium consistent with infiltrative disorders such as amyloid.
Cardiac monitoring 03/20 - 03/26/2023: Sinus rhythm, range 63-108 bpm, average 78 bpm. PACs less than 1% burden.
Left heart cath May 2022: 80 to 90% stenosis in large first septal assistant engineer branch status post PCI.
RHC May 2022: Mild to moderate PAP 58/20 mmHg. Normal PCWP and CO/CI
05/20/2022 equivocal PYP scan for cardiac amyloid. Light chain ratio was normal. No monoclonal spike.
06/19/2022 status post endomyocardial biopsy which was negative for cardiac amyloid
Plan:
Patient is a 58 YOF with PMH significant for CAD s/p WILMAR of large first septal assistant engineer branch, heart failure with recovered ejection fraction, cardiomyopathy recovered, hypertension, hyperlipidemia, hypothyroidism, recurrent pleural effusions,
orthostatic hypotension, diabetes, obstructive sleep apnea who utilizes oxygen at night who presents to emergency department 11/01/2023 after he sustained a mechanical fall getting out of his car. Patient reports he felt lightheaded and dizzy prior
to his fall but denies loss of consciousness. He was noted to be hypotensive on admission with blood pressure of 85/55. Hgb 8.6 JAMAR with creatinine of 2.7. He was provided IV hydration. Troponin negative and EKG shows sinus rhythm without
ischemia. He was noted to have right tib-fib fracture on x-ray. Orthopedics will be performing surgical fixation and cardiology being asked to see patient for preoperative clearance. At time of this evaluation patient denies chest pain, shortness
of breath, dizziness, lightheadedness, edema, orthopnea or PND.
Patient is a rather poor historian. I was able to obtain records from his outpatient dimension specification inspector which demonstrates he had a drug-eluting stent placed to large first septal assistant engineer branch in May 2022. He has been noted to have waxing and
waning cardiomyopathy over the years. Most recent echocardiogram from February 2023 with improved ejection fraction of 65%. He also had abnormal speckling on echo and was worked up for cardiac amyloid with endocardial biopsy which was negative. He
also has a history of orthostatic hypotension was felt to be secondary to dehydration. His torsemide were reduced as outpatient. He has a history of bradycardia which improved with reduction in carvedilol.
-Presented 11/01/2023 with mechanical fall resulting in right tib-fib fracture. Plan is for surgical intervention with orthopedics
-Dizziness/lightheadedness/hypotension on arrival with JAMAR creatinine 2.7. Suspect patient was dehydrated. Patient was provided IV fluids with improvement of blood pressure. Coreg resumed
-Given hypotension and JAMAR hold Entresto and torsemide. Continue to monitor blood pressure and renal function
-Patient has history of coronary artery disease with septal assistant engineer branch WILMAR May 2022. Troponin negative and EKG shows sinus rhythm without ischemia. Patient denies chest pain.
-Continue aspirin and statin for CAD.
-History of waxing and weaning cardiomyopathy and chronic heart failure now with recovered ejection fraction on echocardiogram February 2023. Entresto and torsemide currently on hold secondary to JAMAR. Per review of outpatient cardiology records it
does appear patient has history of orthostatic hypotension and diuretics have been slowly reduced in the past. Once renal function stable consider reinitiation of Entresto or at least low-dose ARB. Would consider resuming diuretic at lower dose once
JAMAR resolves
-Would check echo here. If echo stable patient may proceed from cardiac standpoint to OR once medically stable.
-Anemia which appears to be chronic per review of outpatient cardiology records. They do mention he had a colonoscopy in the past that was unremarkable. Will defer treatment to primary care team.
Data Reviewed
-
EKG: Report Reviewed by me, Discussed with Physician, Discussed with Nurse and Discussed with Patient
Radiology: Report Reviewed by me, Discussed with Physician, Discussed with Nurse and Discussed with Patient
Labs: Labs Reviewed by me, Discussed with Physician, Discussed with Nurse and Discussed with Patient
Old Records: Reviewed
[2023-11-02] MEDS: LEVEMIR 0.0800000000000000017 UNITS SC (10:59)
[2023-11-02 11:08] LABS: Glucose - Point of Care 427 mg/dl (70-99)
[2023-11-02] MEDS: CALCIUM GLUCONATE 100 IV (11:37)
[2023-11-02 11:53] LABS: Glucose 365 mg/dl (70-99)
[2023-11-02] MEDS: NOVOLOG FLEXPEN-LOW RESISTANCE 5 UNITS SC ×2 (12:08→17:40)
[2023-11-02] MEDS: NOVOLOG FLEXPEN 4 UNITS SC (12:08)
--- NOTE | 2023-11-02 16:02 | PTCARENOTE ---
1 unit of PRBC transfused. Hgb to be drawn @ 18:00.
--- NOTE | 2023-11-02 16:14 | CM ---
CM following re: d/c planning
Chart reviewed
CM met with the patient at bedside; IA completed
Pt states he resides with his step-dtr. & her boyfriend in a 3SH with 5STE
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
Pt has O2, a r/w, & had a tub bench, has had VN but doesn't recall the agency, and has been to [facility]
Pt has prescription coverage and rx's are filled at [facility] on [facility] [address]
Pt PCP-[facility] and sees Dr. Doty
Awaiting PT eval for recommendations r/t to discharge planning
PLAN; CM to follow for needs
[2023-11-02 17:26] LABS: Glucose - Point of Care 336 mg/dl (70-99)
[2023-11-02] MEDS: FARXIGA 10 MG PO (17:40)
[2023-11-02] MEDS: NOVOLOG FLEXPEN 10 UNITS SC (17:44)
[2023-11-02 18:22] LABS: Hematocrit 25.3 % (39.0-52.0); Hemoglobin 8.5 g/dL (13.0-18.0)
[2023-11-02 21:21] LABS: Glucose - Point of Care 36 mg/dl (70-99)
[2023-11-02 21:48] LABS: Glucose - Point of Care 49 mg/dl (70-99)
[2023-11-02 22:17] LABS: Glucose - Point of Care 98 mg/dl (70-99)
[2023-11-02] MEDS: LEVEMIR SC (23:19)
[2023-11-03] VITALS (11 sets, daily range): BP systolic 150–178; BP diastolic 68–93
[2023-11-03 00:19] LABS: Glucose - Point of Care 180 mg/dl (70-99)
[2023-11-03 02:51] LABS: Glucose - Point of Care 234 mg/dl (70-99)
[2023-11-03 05:18] LABS: Hematocrit 23.8 % (39.0-52.0); Hemoglobin 8.1 g/dL (13.0-18.0); Mean Corpuscular Hgb 32.4 pg (27.0-31.0); Mean Corpuscular Volume 95.2 fL (80.0-94.0); Mean Platelet Volume 9.7 fL (7.4-10.4); Platelet Count 123 10^3/uL (130-400); Red Cell Dist. Width 13.9 % (11.5-14.5); White Blood Cell Count 6.5 10^3/uL (4.8-10.8)
[2023-11-03 05:46] LABS: Blood Urea Nitrogen 62 mg/dl (9-20); Calcium 8.4 mg/dl (8.4-10.2); Carbon Dioxide 27 mmol/L (22-30); Chloride 103 mmol/L (98-107); Estimated Creatinine Clearance 30 ml/min; Glucose 258 mg/dl (70-99); Magnesium 2.4 mg/dl (1.6-2.3); Phosphorus 4.3 mg/dl (2.5-4.5); Potassium 5.4 mmol/L (3.5-5.1); Sodium 134 mmol/L (135-145); eGFR 29.23
[2023-11-03 05:50] LABS: Glucose - Point of Care 293 mg/dl (70-99)
[2023-11-03] MEDS: NOVOLOG FLEXPEN-LOW RESISTANCE 3 UNITS SC (06:32)
--- NOTE | 2023-11-03 06:33 | W.PN.UPDATE ---
Update Note
Progress Note Update
Patient seen and evaluated by orthopedic surgery this morning. He is resting in bed comfortably, endorses mild aching to the right lower extremity. Plan for right tibia IM nail versus ORIF, right fibula ORIF under direction of Dr. Evans early this
afternoon. Cardiology note and addendum reviewed. Per cardiology, he can proceed as planned to the operating room at acceptable perioperative cardiac risk. Patient to remain NPO. He is to remain strict nonweightbearing to the right lower
extremity. Emphasized the importance of elevation and ice therapy for edema control. Continue with pain management per primary team as needed. Preoperative Ancef, TXA irrigation, and iodine irrigation on-call to the OR. Type and screen
completed. Patient received 1 unit of PRBC yesterday due to hemoglobin of 7.2, which increased to 8.5 after transfusion. Hemoglobin this a.m., 8.1. Primary team was made aware.
Focused examination of the right lower extremity reveals posterior leg splint intact. This was taken down for further evaluation. There is edema noted about the right lower extremity, ankle and foot. DP and PT pulses faint secondary to underlying
edema. The compartments are compressible. Capillary refills less than 2 seconds. Able to perform dorsiflexion of right ankle. Able to wiggle all toes. Further range of motion deferred secondary to known fracture. Sensation is intact to light touch.
Orthopedic surgery will continue to follow along.
[2023-11-03 07:53] LABS: Glucose - Point of Care 271 mg/dl (70-99)
--- NOTE | 2023-11-03 07:53 | W.PN.HOSP.TC ---
Today's Communication/Plan
-
NPO for RLE fracture ORIF today
Glycemic Control
Insulin regimen diabetes medication as per Diabetes REGISTERED DIETETIC TECHNICIAN consult
cont hold diuresis, monitor renal function
follow up post-op recommendations
Blood pressure control
Assessment / Plan
Assessment / Plan
Physical Exam
General: No Apparent Distress and Comfortable
Respiratory: Clear
Cardiac: S1/S2 and Regular Rhythm
GI: Soft, Non Tender and Normal Bowel Sounds
Musculoskeletal: Other (Right lower extremity on immobilizer)
Neuro: Nonfocal/grossly intact
58M CAD stent HFmrEF DM HTN Hypothyroidism JESSENIA CPAP 3L at night presents following fall with comminuted fractures right lower extremity and JAMAR possible overdiuresis.
# Right tib-fib fracture
Cardio eval appreciated acceptable perioperative cardiac risk for surgery as above
Orthopedic eval appreciated NPO for ORIF 11/02
# Type 2 diabetes- Brittle Diabetic
Diabetes REGISTERED DIETETIC TECHNICIAN consult appreciated
cont insulin regimen, titration as necessary, holds as necessary for NPO surgery
Farxiga on hold
#Mild Hyperkalemia
monitor
# Acute kidney injury-hold Entresto and Lasix
# Likely reason for dizziness is patient's acute kidney injury
cautious gentle fluid IV hydration
cont Hold Entresto, Lasix, torsemide
considering Nephro eval if JAMAR persists/no significant improvement
cont hold diuresis at this time
# Chronic heart failure with reduced ejection fraction-hold Entresto and Lasix
Continue beta-blockers.� Hold Entresto and Lasix
BNP elevated possibly d/t Jamar as oppose to heart failure
ECHO appreciated EF 45-50% stage I diastolic dysfunction no significant valve abn's
Cardio eval appreciated
# Coronary artery disease with stents
Continue aspirin, statin, Coreg
# Recent admission at outside hospital for acute respiratory failure/aspiration pneumonia/Right pleural effusion-negative for malignancy
# Hypothyroidism-continue Synthroid
# Hypertension
Patient was hypotensive on admission better with IV fluids
Continue hydralazine but decrease dose to 25 twice daily
hydralazine prn
Continue Coreg daily
# Anemia
Iron studies appreciated possible anemia of chronic disease
transfused 1PRBC for goal Hgb>8 in lieu of cardiac hx and upcoming surgical procedure, responded well Hgb 7.2 to 8.5 following transfusion
H&H stable at this time
#Hypocalcemia
monitor and replete as necessary
# Hyperlipidemia-continue atorvastatin
# Pulmonary nodules
# DVT prophylaxis-subcutaneous heparin
# Full code
I spent a total of 55 minutes with the patient or on the floor. More than 50% of this time involved counseling and coordination of care.
Anticipated Discharge: 24 - 48 hours
Subjective/Interval History
-
Date of Service: November 03, 2023
No acute distress, comfortable at this time, NPO for orthopedic intervention RLE fracture
Objective Data
-
Labs:
Laboratory Results
11/03/23
05:10
WBC 6.5
Hgb 8.1 L
Hct 23.8 L
Plt Count 123 L
Sodium 134 L
Potassium 5.4 H
Chloride 103
Carbon Dioxide 27
BUN 62 H
Creatinine 2.5 H
Glucose 258 H
Calcium 8.4
Vital Signs:
Vital Signs
Temp Pulse Resp BP Pulse Ox
98.5 F 87 18 178/93 92
11/03/23 03:32 11/03/23 03:32 11/03/23 03:32 11/03/23 03:32 11/03/23 03:32
I&O
11/02/23 11/03/23 11/04/23
06:59 06:59 06:59
Intake Total 480 / 480 2410 / 2410
Output Total 900 / 900 800 / 800
Balance -420 / -420 1610 / 1610
[2023-11-03] MEDS: COREG 12.5 MG PO (08:10)
[2023-11-03] MEDS: NSS 1000 IV ×2 (08:10→15:49)
[2023-11-03] MEDS: THERAGRAN 1 TABLET PO (08:11)
[2023-11-03] MEDS: LIPITOR 40 MG PO (08:11)
[2023-11-03] MEDS: SYNTHROID 112 MCG PO (08:11)
[2023-11-03] MEDS: APRESOLINE 25 MG PO ×2 (08:11→20:38)
[2023-11-03] MEDS: ASPIR LOW (ENTERIC COATED) 81 MG PO (08:11)
[2023-11-03] MEDS: NOVOLOG FLEXPEN 7 UNITS SC ×2 (08:13→18:25)
[2023-11-03] MEDS: NOVOLOG FLEXPEN SC (08:14)
--- NOTE | 2023-11-03 11:23 | PN.DE.MGMTRT ---
Insulin Management
- -
11/02/2023: Diabetes Management Consult
58 year old male admitted s/p Right Tib-Fib fracture. PMH includes: HTN, CAD s/p stent, CHF, HLD, JESSENIA on 3 L of oxygen at night, H/o pleural effusion and T2DM, A1C 7.9%, states he was taking Humalog 12 units before meals, Levemir 8 units BID and
Farxiga 10mg daily. DM group is consulted for labile blood sugars.
Of note, pt had a POC glucose of 400@ 21:06, he received Levemir 8 units, his finger stick glucose trended up to 449 @23:55-->Venous draw was 394, pt received 8 units of Aspart and by 06:58 is venous glucose was 63, pt states that it is likely that
the hypoglycemia was a result of the 8 units of Aspart he received at 2AM. States he routinely sees Dr. Toy Dumont?. Says he uses the [employer] for glucose monitoring at home.
Will resume his OP regimen. Start Levemir 8 units BID, NovoLog 4 units AC and Farxiga 10mg daily
Cont corrective insulin with meals, change diet to 1800 araceli.
11/03/2023 Diabetes Management Follow up
Patient for OR today, early afternoon. Patient receiving levemir 8 units BID with novolog AC. Received 10 units standing ordered and 5 units corrective with dinner. Glucose trended down to 36. Patient did not receive HS levemir 8 units. Fasting
glucose this AM 293. Will decrease AC novolog to 7 units when patient returns from OR and no longer NPO. Will continue BID levemir 8 units. Patient cr 2.5, eGFR 29.23 today, Farxiga placed on HOLD this AM. Will follow.
Diabetes History
- -
Type of Diabetes: 2 requiring insulin
Pre-Admission Diabetes Regimen
11/03/23
05:10
Creatinine 2.5 H
Lab Results
Hemoglobin A1c 7.9 % (4.0-5.6) H 11/02/23 06:58
Insulin Pump Settings
IP Diabetes Regimen
11/02/23 11/02/23 11/02/23
11:23 17:25 21:19
Glucose 365 H
POC Glucose 336 H 36 L*
11/02/23 11/02/23 11/03/23
21:47 22:16 00:17
Glucose
POC Glucose 49 L* 98 180 H
11/03/23 11/03/23 11/03/23
02:50 05:10 05:48
Glucose 258 H
POC Glucose 234 H 293 H
11/03/23
07:51
Glucose
POC Glucose 271 H
Meal type: Dinner
Meal type: Lunch
Amount consumed: 100%
Amount consumed: 50%
Patient Education
--- NOTE | 2023-11-03 11:48 | W.PN.CARDCBS ---
Today's Communication / Plan
-
Cont to hold Entresto and torsemide given JAMAR and follow renal function
No further cardiac testing necessary prior to the OR
Impression / Plan
-
PCP:Dr. Florez
Outpatient bowstring maker: Júnior Globe [facility] cardiology
Impression:
Presented 11/01/2023 with mechanical fall
Right tib-fib fracture
JAMAR
Acute on chronic anemia troponin was negative on presentation. proBNP 3550
Coronary artery disease
s/p WILMAR of large first septal musical string maker branch
Heart failure with recovered cardiomyopathy
Ischemic cardiomyopathy, recovered on Echo 02/2023
Myocardial biopsy 06/05/2022 cardiomyocytes with occasional block shaped nuclei, Congo red special stain is negative
Recurrent pleural effusions follows with Dr. Arenas thoracic surgery
Hypertension
Hyperlipidemia
Hypothyroidism
Type 2 diabetes
Chronic anemia
Obstructive sleep apnea, uses 3 L of oxygen at night
History of Pleural effusion
history of pneumonia
Sinus bradycardia on high dose Coreg
Chronic anemia
Orthostatic hypotension
Echo 03/27/2023: EF 65%, mild concentric LVH, stage I DD. No significant valvular disease
Echo 09/25/2022: EF 45%, grade 1 DD. Mildly dilated left atrium. Mild to moderate concentric LVH. Speckled appearance to myocardium consistent with infiltrative disorders such as amyloid.
Cardiac monitoring 03/20 - 03/26/2023: Sinus rhythm, range 63-108 bpm, average 78 bpm. PACs less than 1% burden.
Left heart cath May 2022: 80 to 90% stenosis in large first septal musical string maker branch status post PCI.
RHC May 2022: Mild to moderate PAP 58/20 mmHg. Normal PCWP and CO/CI
05/20/2022 equivocal PYP scan for cardiac amyloid. Light chain ratio was normal. No monoclonal spike.
06/19/2022 status post endomyocardial biopsy which was negative for cardiac amyloid
Patient is a 58 YOF with PMH significant for CAD s/p WILMAR of large first septal musical string maker branch, heart failure with recovered ejection fraction, cardiomyopathy recovered, hypertension, hyperlipidemia, hypothyroidism, recurrent pleural effusions,
orthostatic hypotension, diabetes, obstructive sleep apnea who utilizes oxygen at night who presents to emergency department 11/01/2023 after he sustained a mechanical fall getting out of his car. Patient reports he felt lightheaded and dizzy prior
to his fall but denies loss of consciousness. He was noted to be hypotensive on admission with blood pressure of 85/55. Hgb 8.6 JAMAR with creatinine of 2.7. He was provided IV hydration. Troponin negative and EKG shows sinus rhythm without
ischemia. He was noted to have right tib-fib fracture on x-ray. Orthopedics will be performing surgical fixation and cardiology being asked to see patient for preoperative clearance. At time of this evaluation patient denies chest pain, shortness
of breath, dizziness, lightheadedness, edema, orthopnea or PND.
Patient is a rather poor historian. I was able to obtain records from his outpatient bowstring maker which demonstrates he had a drug-eluting stent placed to large first septal musical string maker branch in May 2022. He has been noted to have waxing and
waning cardiomyopathy over the years. Most recent echocardiogram from February 2023 with improved ejection fraction of 65%. He also had abnormal speckling on echo and was worked up for cardiac amyloid with endocardial biopsy which was negative. He
also has a history of orthostatic hypotension was felt to be secondary to dehydration. His torsemide were reduced as outpatient. He has a history of bradycardia which improved with reduction in carvedilol.
Plan:
-Presented 11/01/2023 with mechanical fall resulting in right tib-fib fracture. Plan is for surgical intervention with orthopedics
-Dizziness/lightheadedness/hypotension on arrival with JAMAR creatinine 2.7. Suspect patient was dehydrated. Patient was provided IV fluids with improvement of blood pressure.
-Given hypotension and JAMAR hold Entresto and torsemide
-Patient has history of coronary artery disease with septal musical string maker branch WILMAR May 2022. Troponin negative and EKG shows sinus rhythm without ischemia. Patient denies chest pain.
-Continue aspirin and statin for CAD.
-History of cardiomyopathy and chronic heart failure now with recovered ejection fraction on echocardiogram February 2023. Entresto and torsemide currently on hold secondary to JAMAR. Per review of outpatient cardiology records it does appear patient
has history of orthostatic hypotension and diuretics have been slowly reduced in the past. Once renal function stable consider reinitiation of Entresto. Would consider resuming diuretic at lower dose once JAMAR resolves.
-Echo here with mildy reduced LVEF
-Given history of CAD and CHF he is at elevated, but not prohibitive risk to proceed with surgery
-No further cardiac testing necessary at this time
Progress Note - Legislative Assistant
Subjective
Date of Service: November 03, 2023
NAOE. Resting comfortably this AM. No chest pain or SOB. No orthopnea/PND.
Objective
Labs:
11/03/23 05:10
11/03/23 05:10
Labs
Hgb 8.1 g/dL (13.0-18.0) L 11/03/23 05:10
Hct 23.8 % (39.0-52.0) L 11/03/23 05:10
Plt Count 123 10^3/uL (130-400) L 11/03/23 05:10
PT 13.1 Sec (11.4-14.6) 11/01/23 13:57
INR 1.01 11/01/23 13:57
Sodium 134 mmol/L (135-145) L 11/03/23 05:10
Potassium 5.4 mmol/L (3.5-5.1) H 11/03/23 05:10
BUN 62 mg/dl (9-20) H 11/03/23 05:10
Creatinine 2.5 mg/dL (0.7-1.3) H 11/03/23 05:10
Glucose 258 mg/dl (70-99) H 11/03/23 05:10
Troponins
11/01/23
13:57
Troponin I 0.014
Vital Signs and I&O:
Vital Signs
Temp Pulse Resp BP Pulse Ox
98.8 F 86 18 166/81 92
11/03/23 07:52 11/03/23 07:52 11/03/23 07:52 11/03/23 07:52 11/03/23 07:52
Vital Signs
Temp Pulse Resp BP Pulse Ox
98.8 F 86 18 166/81 92
11/03/23 07:52 11/03/23 07:52 11/03/23 07:52 11/03/23 07:52 11/03/23 07:52
Intake & Output
11/01/23 11/02/23 11/03/23 11/04/23
06:59 06:59 06:59 06:59
Intake Total 480 / 480 2410 / 2410
Output Total 900 / 900 800 / 800
Balance -420 / -420 1610 / 1610
Physical Exam
Physical Exam
Gen: NAD, AAOx3
HEENT: NC/AT, sclera anicteric
Neck: No JVD
CV: RRR, NL s1/s2
Lungs: CTAB
Abd: S/ND
Ext: No LE edema
Skin: Warm, dry
Neuro: Non-focal
[2023-11-03 11:53] LABS: Glucose - Point of Care 177 mg/dl (70-99)
[2023-11-03 14:12] LABS: Glucose - Point of Care 187 mg/dl (70-99)
--- NOTE | 2023-11-03 14:52 | W.IMMPOSTOP ---
Surgical Immed Post Op Note
-
Primary Surgeon: Carlos Evans
Pre-op Diagnosis: Right distal tibia, distal fibula, proximal fibula fracture
Post-op Diagnosis: Same
Procedure Performed: Right tibia IM nail
Anesthesia Type: Spinal
Specimen / Cultures: None
Estimated Blood Loss: 20cc
Complications: None
Operative Findings: Dictated
Plan:
- NWB on RLE
- PT/ OT
- Follow up in the office in 2 weeks
- 325 mg ASA for 30 days if there are no contraindications medically
[2023-11-03] MEDS: DILAUDID 0.25 MG IV (15:50)
[2023-11-03] MEDS: NOVOLOG FLEXPEN-LOW RESISTANCE SC (16:21)
[2023-11-03] MEDS: ROXICODONE 10 MG PO (16:58)
[2023-11-03 17:38] LABS: Glucose - Point of Care 245 mg/dl (70-99)
--- NOTE | 2023-11-03 17:58 | PTCARENOTE ---
Received patient from PACU around 1600 via bed in stable condition. Splint and katherine wrap to right lower extremity with ice pack in place. Patient oriented to room. Call grover in place.
[2023-11-03] MEDS: NOVOLOG FLEXPEN-LOW RESISTANCE 2 UNITS SC (18:24)
[2023-11-03] MEDS: ASPIRIN 325 MG PO (18:24)
[2023-11-03] MEDS: ANCEF 5 IV (20:36)
[2023-11-03] MEDS: COLACE 100 MG PO (20:38)
[2023-11-03] MEDS: TYLENOL 650 MG PO (20:38)
[2023-11-03 21:42] LABS: Glucose - Point of Care 258 mg/dl (70-99)
[2023-11-03] MEDS: LEVEMIR 0.0800000000000000017 UNITS SC (22:15)
[2023-11-04] VITALS (17 sets, daily range): BP systolic 119–163; BP diastolic 46–87; PULSE 74–75; O2SAT 94; BMI 23.0
[2023-11-04] MEDS: NSS 1000 IV ×2 (00:54→13:34)
[2023-11-04] MEDS: ANCEF 5 IV (03:25)
[2023-11-04] MEDS: ROXICODONE 10 MG PO (03:31)
[2023-11-04 05:06] LABS: Mean Corp Hgb Conc. 33.3 g/dL (33.0-37.0); Mean Corpuscular Volume 96.1 fL (80.0-94.0); Mean Platelet Volume 10.7 fL (7.4-10.4); Platelet Count 115 10^3/uL (130-400); Red Blood Cell Count 2.06 10^6/uL (4.70-6.10); Red Cell Dist. Width 13.6 % (11.5-14.5); White Blood Cell Count 6.4 10^3/uL (4.8-10.8)
[2023-11-04 05:44] LABS: Blood Urea Nitrogen 61 mg/dl (9-20); Calcium 7.9 mg/dl (8.4-10.2); Carbon Dioxide 27 mmol/L (22-30); Chloride 104 mmol/L (98-107); Estimated Creatinine Clearance 31 ml/min; Glucose 238 mg/dl (70-99); Magnesium 2.4 mg/dl (1.6-2.3); Phosphorus 4.6 mg/dl (2.5-4.5); Potassium 5.5 mmol/L (3.5-5.1); Sodium 136 mmol/L (135-145)
[2023-11-04 06:12] LABS: Hematocrit 19.8 % (39.0-52.0); Hemoglobin 6.6 g/dL (13.0-18.0)
--- NOTE | 2023-11-04 06:29 | PTCARENOTE ---
House TAX ASSOCIATE ATTORNEY notified of patient's AM H/H 6.6/19.8
VSS> T97.4, HR77, RR18, BP131/60, pox 95% #3LNC
2 units PRBC ordered.
--- NOTE | 2023-11-04 07:58 | PN.DE.MGMTRT ---
Insulin Management
- -
11/02/2023: Diabetes Management Consult
58 year old male admitted s/p Right Tib-Fib fracture. PMH includes: HTN, CAD s/p stent, CHF, HLD, JESSENIA on 3 L of oxygen at night, H/o pleural effusion and T2DM, A1C 7.9%, states he was taking Humalog 12 units before meals, Levemir 8 units BID and
Farxiga 10mg daily. DM group is consulted for labile blood sugars.
Of note, pt had a POC glucose of 400@ 21:06, he received Levemir 8 units, his finger stick glucose trended up to 449 @23:55-->Venous draw was 394, pt received 8 units of Aspart and by 06:58 is venous glucose was 63, pt states that it is likely that
the hypoglycemia was a result of the 8 units of Aspart he received at 2AM. States he routinely sees Dr. Toy Dumont?. Says he uses the Mobile [employer] for glucose monitoring at home.
Will resume his OP regimen. Start Levemir 8 units BID, NovoLog 4 units AC and Farxiga 10mg daily
Cont corrective insulin with meals, change diet to 1800 araceli.
11/03/2023 Diabetes Management Follow up
Patient for OR today, early afternoon. Patient receiving levemir 8 units BID with novolog AC. Received 10 units standing ordered and 5 units corrective with dinner. Glucose trended down to 36. Patient did not receive HS levemir 8 units. Fasting
glucose this AM 293. Will decrease AC novolog to 7 units when patient returns from OR and no longer NPO. Will continue BID levemir 8 units. Patient cr 2.5, eGFR 29.23 today, Farxiga placed on HOLD this AM. Will follow.
11/04/2023 Diabetes Management Follow up
Patient s/p OR for fx R tib-fib. Patient did not receive AM levemir yesterday, glucose trended up to 245 pre dinner. Did receive corrective insulin with dinner, glucose 258 @ HS. Received 8 levemir, fasting glucose 238. Will increase AC novolog
to 9 and BID levemir to 10.
Diabetes History
- -
Type of Diabetes: 2 requiring insulin
Pre-Admission Diabetes Regimen
11/04/23
04:15
Creatinine 2.4 H
Lab Results
Hemoglobin A1c 7.9 % (4.0-5.6) H 11/02/23 06:58
Insulin Pump Settings
IP Diabetes Regimen
11/03/23 11/03/23 11/03/23
10:12 14:11 17:37
Glucose
POC Glucose 177 H 187 H 245 H
11/03/23 11/04/23
21:41 04:15
Glucose 238 H
POC Glucose 258 H
Meal type: Dinner
Meal type: Lunch
Meal type: Breakfast
Amount consumed: 50%
Patient Education
--- NOTE | 2023-11-04 08:07 | W.PN.HOSP.TC ---
Today's Communication/Plan
-
Monitor H&H transfuse for goal Hgb>8
ASA as per orthopedic dvt ppx, ASA also necessary given recent cardiac stent
glycemic control, Hold premeal insulin if patient does not intend to eat his meal
blood pressure control
PT/OT
Assessment / Plan
Assessment / Plan
Physical Exam
General: No Apparent Distress and Comfortable
Respiratory: Clear
Cardiac: S1/S2 and Regular Rhythm
GI: Soft, Non Tender and Normal Bowel Sounds
Musculoskeletal: Right lower extremity splint in place
Neuro: Nonfocal/grossly intact
58M CAD stent HFmrEF DM HTN Hypothyroidism JESSENIA CPAP 3L at night presents following fall with comminuted fractures right lower extremity and JAMAR possible overdiuresis.
# Right tib-fib fracture
Cardio eval appreciated acceptable perioperative cardiac risk for surgery as above
Orthopedic eval appreciated s/p ORIF right tibial IM nail 11/02
-strict NWB to RLE w/ assistive device
-ASA 325 mg daily x4 weeks DVT ppx
-Splint in place 2wks until post-op visit repeat X-rays and suture removal
# Type 2 diabetes- Brittle Diabetic
Diabetes TROLLEY CLEANER consult appreciated
cont insulin regimen, titration as necessary, holds as necessary for hypoglycemia
Farxiga on hold for now
Hold premeal insulin if patient does not intend to eat his meal
#Mild Hyperkalemia
monitor
# Acute kidney injury VS CKD-hold Entresto and Lasix
# Likely reason for dizziness is patient's acute kidney injury
cautious gentle fluid IV hydration completed
cont Hold Entresto, Lasix, torsemide
considering Nephro eval if JAMAR persists/no significant improvement
cont hold diuresis at this time
Cr improved from 2.7 on admission to 2.4 suspect baseline
cont to monitor
# Chronic heart failure with reduced ejection fraction-hold Entresto and Lasix
Continue beta-blockers.� Hold Entresto and Lasix
BNP elevated possibly d/t Jamar as oppose to heart failure
ECHO appreciated EF 45-50% stage I diastolic dysfunction no significant valve abn's
Cardio eval appreciated
# Coronary artery disease with stents
Continue aspirin, statin, Coreg
# Recent admission at outside hospital for acute respiratory failure/aspiration pneumonia/Right pleural effusion-negative for malignancy
# Hypothyroidism-continue Synthroid
# Hypertension
Patient was hypotensive on admission better with IV fluids
Continue hydralazine but decrease dose to 25 twice daily
hydralazine prn
Continue Coreg daily
Monitor and titrate antihypertensive regimen as necessary.
# Anemia of Chronic Disease
#Possible anemia due to chronic renal insufficiency
#Acute blood loss anemia
Iron studies appreciated possible anemia of chronic disease
Acute on chronic anemia recent surgical procedure
transfuse for goal Hgb>8 given cardiac hx (received 1PRBC prior to surgery, post-procedure received 2PRBC for Hgb 6.6 with subsequent good response 8.9)
#Hypocalcemia
monitor and replete as necessary
# Hyperlipidemia-continue atorvastatin
# Pulmonary nodules
# DVT prophylaxis-subcutaneous heparin
# Full code
PT/OT appreciated SNF vs Acute
I spent a total of 55 minutes with the patient or on the floor. More than 50% of this time involved counseling and coordination of care.
Anticipated Discharge: 24 - 48 hours
Subjective/Interval History
-
Date of Service: November 04, 2023
Seen and examined at bedside in no acute distress sitting up comfortably in chair. Reports poor appetite, skipping lunch, though patient also reports haven eaten breakfast without issues. denies lightheadedness bleeding.
Objective Data
-
Labs:
Laboratory Results
11/04/23
04:15
WBC 6.4
Hgb 6.6 L*
Hct 19.8 L*
Plt Count 115 L
Sodium 136
Potassium 5.5 H
Chloride 104
Carbon Dioxide 27
BUN 61 H
Creatinine 2.4 H
Glucose 238 H
Calcium 7.9 L
Vital Signs:
Vital Signs
Temp Pulse Resp BP Pulse Ox
97.4 F 77 18 131/60 95
11/04/23 06:28 11/04/23 06:28 11/04/23 06:28 11/04/23 06:28 11/04/23 06:28
I&O
11/03/23 11/04/23 11/05/23
06:59 06:59 06:59
Intake Total 2410 / 2410 1300 / 1300
Output Total 800 / 800 450 / 450
Balance 1610 / 1610 850 / 850
--- NOTE | 2023-11-04 08:14 | W.PN.ORTHO ---
Today's Communication / Plan
-
58 yo M POD1 right tibial IM nail under the direction of Dr. Evans (DOS 11/03/2023)
--Strict NWB to RLE with assistive device. We appreciate the assistance of PT/OT.
--Recommend ASA 325 mg daily x4 weeks for DVT prophylaxis.
--Continue current pain management regimen. Ice and elevation for edema control.
--Hgb 6.6 this AM. 2 units PRBC ordered. Recheck hgb following transfusion.
--Splint to remain in place until 2 week post-op visit. Follow up in the office at 2 weeks post-op for repeat x-rays and suture removal.
--Case management consult for discharge planning.
--Orthopedics will continue to follow along.
Assessment
.
Distal Motor Intact: Yes
Dressing:
Clean, dry and intact.
Plan
.
Surgery / Date: R tibia IM nail, Cristina, 11/03/2023
DVT Prophylaxis: Aspirin
Activity:
Out of bed.
PT/OT
Subjective
.
.:
Mr. Barahona is POD1 following his right IM tibial nail performed by Dr Evans. He is resting comfortably in bed this morning and reports any pain in his leg is well controlled at present. He does endorse fatigue and tiredness.
Vital Signs and Labs
.
Vital Signs and Labs:
Lab Results
11/04/23 04:15
11/04/23 04:15
Temp Pulse Resp BP Pulse Ox
97.4 F 77 18 131/60 95
11/04/23 06:28 11/04/23 06:28 11/04/23 06:28 11/04/23 06:28 11/04/23 06:28
PT 13.1 Sec (11.4-14.6) 11/01/23 13:57
INR 1.01 11/01/23 13:57
Physical Exam
-
Patient has pale appearance. AAOx3.
Directed exam of the right lower extremity reveals surgical splint clean, dry and intact. Good color of toes. Patient able to wiggle toes. Sensation intact to light touch above and below splint. Capillary refill <2 seconds.
[2023-11-04] MEDS: SYNTHROID 112 MCG PO (08:18)
[2023-11-04] MEDS: COREG 12.5 MG PO (08:19)
[2023-11-04] MEDS: APRESOLINE 25 MG PO ×2 (08:19→19:59)
[2023-11-04] MEDS: COLACE 100 MG PO ×2 (08:19→19:59)
[2023-11-04] MEDS: THERAGRAN 1 TABLET PO (08:20)
[2023-11-04] MEDS: LIPITOR 40 MG PO (08:20)
[2023-11-04 08:45] LABS: Glucose - Point of Care 241 mg/dl (70-99)
[2023-11-04] MEDS: NOVOLOG FLEXPEN-LOW RESISTANCE 2 UNITS SC (08:57)
[2023-11-04] MEDS: NOVOLOG FLEXPEN 9 UNITS SC ×2 (08:58→12:54)
[2023-11-04] MEDS: NOVOLOG FLEXPEN SC ×2 (08:59→17:53)
[2023-11-04] MEDS: LEVEMIR 0.100000000000000006 UNITS SC ×2 (09:06→21:59)
[2023-11-04] MEDS: LEVEMIR SC (09:19)
[2023-11-04 12:47] LABS: Glucose - Point of Care 169 mg/dl (70-99)
[2023-11-04] MEDS: NOVOLOG FLEXPEN-LOW RESISTANCE 1 UNITS SC (12:53)
[2023-11-04] MEDS: APRESOLINE 5 MG IV (13:32)
--- NOTE | 2023-11-04 14:28 | CM ---
Reviewed the chart notes and spoke with the patient at the bedside. The patient received 2 units PRBC for Hgb 6.6. PT unable to evaluate due to the patient receiving blood. CM continues to be available to patient/family and is monitoring medical
plan for needs at discharge.
Plan: Discharge plans will depend on the patient's progress.
[2023-11-04 14:41] LABS: Hemoglobin 8.9 g/dL (13.0-18.0)
[2023-11-04 17:33] LABS: Glucose - Point of Care 38 mg/dl (70-99)
--- NOTE | 2023-11-04 17:35 | W.PN.CARDCBS ---
Today's Communication / Plan
-
Would resume aspirin at least 81 mg daily given history of drug-eluting stent
Continue to hold home Entresto until renal function normalizes
Impression / Plan
-
PCP:Dr. Florez
Outpatient computer aided design designer: Júnior Gael [facility] cardiology
Impression:
Presented 11/01/2023 with mechanical fall
Right tib-fib fracture
JAMAR
Acute on chronic anemia troponin was negative on presentation. proBNP 3550
Coronary artery disease
s/p WILMAR of large first septal process automation engineer branch
Heart failure with recovered cardiomyopathy
Ischemic cardiomyopathy, recovered on Echo 02/2023
Myocardial biopsy 06/05/2022 cardiomyocytes with occasional block shaped nuclei, Congo red special stain is negative
Recurrent pleural effusions follows with Dr. Arenas thoracic surgery
Hypertension
Hyperlipidemia
Hypothyroidism
Type 2 diabetes
Chronic anemia
Obstructive sleep apnea, uses 3 L of oxygen at night
History of Pleural effusion
history of pneumonia
Sinus bradycardia on high dose Coreg
Chronic anemia
Orthostatic hypotension
Echo 03/27/2023: EF 65%, mild concentric LVH, stage I DD. No significant valvular disease
Echo 09/25/2022: EF 45%, grade 1 DD. Mildly dilated left atrium. Mild to moderate concentric LVH. Speckled appearance to myocardium consistent with infiltrative disorders such as amyloid.
Cardiac monitoring 03/20 - 03/26/2023: Sinus rhythm, range 63-108 bpm, average 78 bpm. PACs less than 1% burden.
Left heart cath May 2022: 80 to 90% stenosis in large first septal process automation engineer branch status post PCI.
RHC May 2022: Mild to moderate PAP 58/20 mmHg. Normal PCWP and CO/CI
05/20/2022 equivocal PYP scan for cardiac amyloid. Light chain ratio was normal. No monoclonal spike.
06/19/2022 status post endomyocardial biopsy which was negative for cardiac amyloid
Patient is a 58 YOF with PMH significant for CAD s/p WILMAR of large first septal process automation engineer branch, heart failure with recovered ejection fraction, cardiomyopathy recovered, hypertension, hyperlipidemia, hypothyroidism, recurrent pleural effusions,
orthostatic hypotension, diabetes, obstructive sleep apnea who utilizes oxygen at night who presents to emergency department 11/01/2023 after he sustained a mechanical fall getting out of his car. Patient reports he felt lightheaded and dizzy prior
to his fall but denies loss of consciousness. He was noted to be hypotensive on admission with blood pressure of 85/55. Hgb 8.6 JAMAR with creatinine of 2.7. He was provided IV hydration. Troponin negative and EKG shows sinus rhythm without
ischemia. He was noted to have right tib-fib fracture on x-ray. Orthopedics will be performing surgical fixation and cardiology being asked to see patient for preoperative clearance. At time of this evaluation patient denies chest pain, shortness
of breath, dizziness, lightheadedness, edema, orthopnea or PND.
Patient is a rather poor historian. I was able to obtain records from his outpatient computer aided design designer which demonstrates he had a drug-eluting stent placed to large first septal process automation engineer branch in May 2022. He has been noted to have waxing and
waning cardiomyopathy over the years. Most recent echocardiogram from February 2023 with improved ejection fraction of 65%. He also had abnormal speckling on echo and was worked up for cardiac amyloid with endocardial biopsy which was negative. He
also has a history of orthostatic hypotension was felt to be secondary to dehydration. His torsemide were reduced as outpatient. He has a history of bradycardia which improved with reduction in carvedilol.
Plan:
-Presented 11/01/2023 with mechanical fall resulting in right tib-fib fracture. Plan is for surgical intervention with orthopedics
-Dizziness/lightheadedness/hypotension on arrival with JAMAR creatinine 2.7. Suspect patient was dehydrated. Patient was provided IV fluids with improvement of blood pressure.
-Given hypotension and JAMAR hold Entresto and torsemide
-Patient has history of coronary artery disease with septal process automation engineer branch WILMAR May 2022. Troponin negative and EKG shows sinus rhythm without ischemia. Patient denies chest pain.
-Continue aspirin and statin for CAD.
-History of cardiomyopathy and chronic heart failure now with recovered ejection fraction on echocardiogram February 2023. Entresto and torsemide currently on hold secondary to JAMAR. Per review of outpatient cardiology records it does appear patient
has history of orthostatic hypotension and diuretics have been slowly reduced in the past. Once renal function stable consider reinitiation of Entresto. Would consider resuming diuretic at lower dose once JAMAR resolves.
-Echo here with mildy reduced LVEF
Progress Note - Safety Aide
Subjective
Date of Service: November 04, 2023
No acute overnight events. Resting comfortably in bed following surgery. Currently receiving blood transfusion. No chest discomfort or shortness of breath.
Objective
Labs:
11/04/23 14:31
11/04/23 04:15
Labs
Hgb 8.9 g/dL (13.0-18.0) L D 11/04/23 14:31
Hct 26.0 % (39.0-52.0) L 11/04/23 14:31
Plt Count 115 10^3/uL (130-400) L 11/04/23 04:15
PT 13.1 Sec (11.4-14.6) 11/01/23 13:57
INR 1.01 11/01/23 13:57
Sodium 136 mmol/L (135-145) 11/04/23 04:15
Potassium 5.5 mmol/L (3.5-5.1) H 11/04/23 04:15
BUN 61 mg/dl (9-20) H 11/04/23 04:15
Creatinine 2.4 mg/dL (0.7-1.3) H 11/04/23 04:15
Glucose 238 mg/dl (70-99) H 11/04/23 04:15
Vital Signs and I&O:
Vital Signs
Temp Pulse Resp BP Pulse Ox
98.6 F 75 18 132/68 95
11/04/23 15:26 11/04/23 15:26 11/04/23 15:26 11/04/23 15:26 11/04/23 15:26
Vital Signs
Temp Pulse Resp BP Pulse Ox
98.6 F 75 18 132/68 95
11/04/23 15:26 11/04/23 15:26 11/04/23 15:26 11/04/23 15:26 11/04/23 15:26
Intake & Output
11/02/23 11/03/23 11/04/23 11/05/23
06:59 06:59 06:59 06:59
Intake Total 480 / 480 2410 / 2410 1300 / 1300 500 / 500
Output Total 900 / 900 800 / 800 450 / 450
Balance -420 / -420 1610 / 1610 850 / 850 500 / 500
Physical Exam
Physical Exam
Gen: NAD, AAOx3
HEENT: NC/AT, sclera anicteric
Neck: No JVD
CV: RRR, NL s1/s2, no M/R/G
Lungs: No increased work of breathing on 3 L nasal cannula
Abd: S/ND
Ext: No LE edema
Skin: Warm, dry
Neuro: Non-focal
[2023-11-04] MEDS: NOVOLOG FLEXPEN-LOW RESISTANCE SC (17:38)
[2023-11-04 17:54] LABS: Glucose - Point of Care 102 mg/dl (70-99)
[2023-11-04 19:53] LABS: Glucose - Point of Care 179 mg/dl (70-99)
[2023-11-04 21:56] LABS: Glucose - Point of Care 175 mg/dl (70-99)
[2023-11-04] MEDS: TYLENOL 650 MG PO (21:58)
[2023-11-04] MEDS: ASPIRIN 325 MG PO (23:46)
[2023-11-05] VITALS (11 sets, daily range): BP systolic 113–187; BP diastolic 57–100; BMI 23.5
[2023-11-05] MEDS: FLUSH (NSS) 2 FLUSH IV (00:40)
[2023-11-05] MEDS: APRESOLINE 5 MG IV ×2 (00:40→09:14)
[2023-11-05 05:03] LABS: Glucose - Point of Care 127 mg/dl (70-99)
[2023-11-05 06:10] LABS: Hematocrit 23.3 % (39.0-52.0); Hemoglobin 7.9 g/dL (13.0-18.0); Mean Corp Hgb Conc. 33.9 g/dL (33.0-37.0); Mean Corpuscular Hgb 31.6 pg (27.0-31.0); Mean Corpuscular Volume 93.2 fL (80.0-94.0); Mean Platelet Volume 10.1 fL (7.4-10.4); Platelet Count 121 10^3/uL (130-400); Red Cell Dist. Width 14.6 % (11.5-14.5); White Blood Cell Count 5.9 10^3/uL (4.8-10.8)
[2023-11-05 06:48] LABS: Blood Urea Nitrogen 62 mg/dl (9-20); Calcium 8.4 mg/dl (8.4-10.2); Carbon Dioxide 28 mmol/L (22-30); Chloride 103 mmol/L (98-107); Estimated Creatinine Clearance 33 ml/min; Glucose 122 mg/dl (70-99); Magnesium 2.5 mg/dl (1.6-2.3); Phosphorus 4.3 mg/dl (2.5-4.5); Potassium 5.1 mmol/L (3.5-5.1); Sodium 138 mmol/L (135-145); eGFR 32.31
--- NOTE | 2023-11-05 07:02 | W.PN.ORTHO ---
Today's Communication / Plan
-
PT/OT
Splint in place
Ice with elevation to control swelling and pain
Strict nonweightbearing right lower extremity
Observe hemoglobin
Discharge once medically stable
Follow-up orthopedics 2 weeks postop for x-ray and skin clip removal
Assessment
.
Distal Motor Intact: Yes
Dressing:
Clean, dry and intact.
Plan
.
Surgery / Date: R tibia IM juan antonio, Cristina, 11/03/2023
DVT Prophylaxis: Aspirin
Activity:
Out of bed.
PT/OT
Discharge Plan: Home
Subjective
.
.:
Patient resting comfortably.
Vital Signs and Labs
.
Vital Signs and Labs:
Lab Results
11/05/23 05:24
11/05/23 05:24
Temp Pulse Resp BP Pulse Ox
97.9 F 73 16 141/77 97
11/05/23 03:06 11/05/23 03:06 11/05/23 03:06 11/05/23 03:06 11/05/23 03:06
PT 13.1 Sec (11.4-14.6) 11/01/23 13:57
INR 1.01 11/01/23 13:57
--- NOTE | 2023-11-05 07:14 | W.PN.HOSP.TC ---
Today's Communication/Plan
-
Coreg increased to BID as per Cardio
Monitor H&H transfuse for goal Hgb>8
ASA DVT ppx as per orthopedic dvt ppx
Monitor renal function
glycemic control
blood pressure control
PT/OT
Assessment / Plan
Assessment / Plan
Physical Exam
General: No Apparent Distress and Comfortable
Respiratory: Clear
Cardiac: S1/S2 and Regular Rhythm
GI: Soft, Non Tender and Normal Bowel Sounds
Musculoskeletal: Right lower extremity splint in place
Neuro: Nonfocal/grossly intact
58M CAD stent HFmrEF DM HTN Hypothyroidism JESSENIA CPAP 3L at night presents following fall with comminuted fractures right lower extremity and JAMAR possible overdiuresis.
# Right tib-fib fracture
Cardio eval appreciated acceptable perioperative cardiac risk for surgery as above
Orthopedic eval appreciated s/p ORIF right tibial IM nail 11/02
-strict NWB to RLE w/ assistive device
-ASA 325 mg daily x4 weeks DVT ppx
-Splint in place 2wks until post-op visit repeat X-rays and suture removal
# Type 2 diabetes- Brittle Diabetic
Diabetes MEDICAL CARE ADMINISTRATOR consult appreciated
cont insulin regimen, titration as necessary, holds as necessary for hypoglycemia
Farxiga on hold for now
Hold premeal insulin if patient does not intend to eat his meal
#Mild Hyperkalemia
monitor
# Acute kidney injury VS CKD-hold Entresto and Lasix
# Likely reason for dizziness is patient's acute kidney injury
cautious gentle fluid IV hydration completed
cont Hold Entresto, Lasix, torsemide
considering Nephro eval if JAMAR persists/no significant improvement
cont hold diuresis at this time
Cr improved from 2.7 on admission to 2.4 suspect baseline
cont to monitor
# Chronic heart failure with reduced ejection fraction-hold Entresto and Lasix
Continue beta-blockers.� Hold Entresto and Lasix
BNP elevated possibly d/t Jamar as oppose to heart failure
ECHO appreciated EF 45-50% stage I diastolic dysfunction no significant valve abn's
Cardio eval appreciated
# Coronary artery disease with stents
Continue aspirin, statin, Coreg
# Recent admission at outside hospital for acute respiratory failure/aspiration pneumonia/Right pleural effusion-negative for malignancy
# Hypothyroidism-continue Synthroid
# Hypertension
Patient was hypotensive on admission better with IV fluids
Continue hydralazine but decrease dose to 25 twice daily
hydralazine prn
Continue Coreg increased to BID as per cardio
Monitor and titrate antihypertensive regimen as necessary.
# Anemia of Chronic Disease
#Possible anemia due to chronic renal insufficiency
#Acute blood loss anemia
Iron studies appreciated possible anemia of chronic disease
Acute on chronic anemia recent surgical procedure
transfuse for goal Hgb>8 given cardiac hx (received 1PRBC prior to surgery, post-procedure received 2PRBC for Hgb 6.6 with subsequent good response 8.9)
Hematology eval appreciated
#Hypocalcemia
monitor and replete as necessary
# Hyperlipidemia-continue atorvastatin
# Pulmonary nodules
# DVT prophylaxis-subcutaneous heparin
# Full code
PT/OT appreciated SNF vs Acute
discussed with patient and his Lina
I spent a total of 56 minutes with the patient or on the floor. More than 50% of this time involved counseling and coordination of care.
Anticipated Discharge: 24 - 48 hours
Subjective/Interval History
-
Date of Service: November 05, 2023
No acute distress
Objective Data
-
Labs:
Laboratory Results
11/05/23
05:24
WBC 5.9
Hgb 7.9 L
Hct 23.3 L
Plt Count 121 L
Sodium 138
Potassium 5.1
Chloride 103
Carbon Dioxide 28
BUN 62 H
Creatinine 2.3 H
Glucose 122 H
Calcium 8.4
Vital Signs:
Vital Signs
Temp Pulse Resp BP Pulse Ox
97.9 F 73 16 141/77 97
11/05/23 03:06 11/05/23 03:06 11/05/23 03:06 11/05/23 03:06 11/05/23 03:06
I&O
11/04/23 11/05/23 11/06/23
06:59 06:59 06:59
Intake Total 1300 / 1300 500 / 500
Output Total 450 / 450 0 / 0
Balance 850 / 850 500 / 500
[2023-11-05 07:32] LABS: Glucose - Point of Care 99 mg/dl (70-99)
[2023-11-05] MEDS: NOVOLOG FLEXPEN-LOW RESISTANCE SC ×2 (07:48→17:42)
[2023-11-05] MEDS: ASPIRIN 325 MG PO (08:46)
[2023-11-05] MEDS: COREG 12.5 MG PO ×2 (08:46→20:27)
[2023-11-05] MEDS: SYNTHROID 112 MCG PO (08:47)
[2023-11-05] MEDS: LEVEMIR 0.100000000000000006 UNITS SC ×2 (08:47→22:35)
[2023-11-05] MEDS: THERAGRAN 1 TABLET PO (08:47)
[2023-11-05] MEDS: COLACE 100 MG PO ×2 (08:47→20:26)
[2023-11-05] MEDS: APRESOLINE 25 MG PO ×2 (08:47→20:26)
[2023-11-05] MEDS: LIPITOR 40 MG PO (08:47)
[2023-11-05] MEDS: TYLENOL 650 MG PO (09:18)
[2023-11-05] MEDS: NOVOLOG FLEXPEN 9 UNITS SC ×2 (10:26→18:07)
--- NOTE | 2023-11-05 10:57 | PN.DE.MGMTRT ---
Insulin Management
- -
11/05/2023 Diabetes Management Follow up
Patient is POD 2 s/p surgery for R fractured tibfib. I spoke with patient today he is alert, oriented and able to participate in discussion of insulin regimen. Prior to admission was taking farxiga 10 mg daily levemir 8 units BID and humalog 10 to
12 units AC. S/P OR restarted novolog 7 units AC and levemir 8 units BID.
Last evening glucose trended down to 38 pre dinner. He had told nurse he ordered lunch insulin was administered, but did not eat lunch. Suspicion of hypoglycemia contributing to recent falls and admission to another hospital.
Will reduce lunch insulin to 6 units novolog and continue 9 units AC. Levemir increased to 10 units BID, first dose @ hs last evening. Fasting glucose this AM 127. Will follow.
Diabetes History
- -
Type of Diabetes: 2 requiring insulin
Pre-Admission Diabetes Regimen
11/05/23
05:24
Creatinine 2.3 H
Lab Results
Hemoglobin A1c 7.9 % (4.0-5.6) H 11/02/23 06:58
Insulin Pump Settings
IP Diabetes Regimen
11/04/23 11/04/23 11/04/23
12:46 17:31 17:53
Glucose
POC Glucose 169 H 38 L* 102 H
11/04/23 11/04/23 11/05/23
19:52 21:54 05:01
Glucose
POC Glucose 179 H 175 H 127 H
11/05/23 11/05/23
05:24 07:31
Glucose 122 H
POC Glucose 99
Patient Education
[2023-11-05] MEDS: ROXICODONE 10 MG PO (11:35)
[2023-11-05 12:18] LABS: Glucose - Point of Care 242 mg/dl (70-99)
--- NOTE | 2023-11-05 13:22 | CON.ONC ---
Impression
Impression
Multifactorial anemia
Blood loss associated with ORIF
CAD
Congestive heart failure
Diabetes mellitus
Hypertension
Hyperlipidemia
Thrombocytopenia
Plan
Plan
Multiple etiologies of anemia
Substrates appear adequate
No atypical bleeding noted PT PTT in the normal range
Mild thrombocytopenia with platelet dysfunction imparted by aspirin
Current events adequate to explain anemia
Assess reticulocyte count and erythropoietin level
Patient would benefit from erythropoietin given creatinine of 2.5 and current level of anemia
Evaluate hemolytic profile
Suspect renal insufficiency secondary to diabetes but will assess for monoclonal proteins and K/L ratio
Follow-up for outpatient ultrasound of the liver and spleen
Consider outpatient evaluation for PNH should anemia persists particularly if reticulocyte count suggest nonimmune hemolysis
Will follow
Patient History
History of Present Illness
58M CAD stent HFmrEF DM HTN Hypothyroidism JESSENIA CPAP 3L at night presents following fall with comminuted fractures right lower extremity and JAMAR possible overdiuresis. Status post ORIF tib-fib fracture with persistent anemia requiring 4 units of
packed red blood cells. Patient has been on ASA for DVT prophylaxis underlying heart disease. Patient's known etiologies of anemia include chronic renal insufficiency/anemia chronic disease and blood loss postop. Been asked to assess whether
there may be additional causes of anemia. Patient with postoperative discomfort and fatigue. No shortness of breath, chest pain or palpitations.
Past-Medical/Surgical History
Past medical history:
Coronary artery disease
s/p WILMAR of large first septal account manager relief branchHeart failure with recovered cardiomyopathy
Ischemic cardiomyopathy, recovered on Echo 02/2023
Myocardial biopsy 06/05/2022 cardiomyocytes with occasional block shaped nuclei, Congo red special stain is negative
Recurrent pleural effusions follows with Dr. Arenas thoracic surgery
Hypertension
Hyperlipidemia
Hypothyroidism
Type 2 diabetes
Chronic anemia
Obstructive sleep apnea, uses 3 L of oxygen at night
History of Pleural effusion
history of pneumonia
Sinus bradycardia on high dose Coreg
Chronic anemia
Orthostatic hypotension
Past Medical History
Past Medical History: Other (see HPI)
Past Surgical History: Cardiac (s/p WILMAR of large first septal account manager relief branch 05/2022) and Other ([place] teeth extraction, eye surgery, thoracentesis)
Social History
Tobacco: Former Smoker
Alcohol: Occasional
Drug: None
Personal: Other ()
Living: With Family (Step-daughter and her boyfriend)
Employment: Employed ([employer])
Family History
Family History: Reviewed & Not Pertinent
Patient Medication
Medication Instructions Recorded Confirmed Last Taken Type
aspirin 81 mg tablet,delayed 81 mg PO DAILY Blood Clot 02/05/22 11/01/23 11/01/23 History
release Prevention/Tx
atorvastatin 40 mg tablet 40 mg PO DAILY High Cholesterol 02/05/22 11/01/23 11/01/23 History
carvedilol 12.5 mg tablet 12.5 mg PO DAILY Blood Pressure 02/05/22 11/01/23 11/01/23 History
insulin lispro 100 unit/mL 10 - 12 unit SC AC diabetes 02/05/22 11/01/23 02/05/22 12:00 History
subcutaneous solution (Humalog
U-100 Insulin)
dapagliflozin propanediol 10 mg 10 mg PO DAILY Diabetes/Heart 11/01/23 11/01/23 11/01/23 History
tablet (Farxiga) Failure
furosemide 40 mg tablet (Lasix) 40 mg PO DAILY Fluid 11/01/23 11/01/23 11/01/23 History
Retention/Swelling
hydralazine 50 mg tablet 50 mg PO BID Blood Pressure 11/01/23 11/01/23 11/01/23 History
insulin detemir U-100 100 unit/mL 8 unit SC BID diabetes 11/01/23 11/01/23 11/01/23 History
(3 mL) subcutaneous pen (Levemir
FlexPen)
levothyroxine 112 mcg tablet 112 mcg PO DAILY Thyroid 11/01/23 11/01/23 11/01/23 History
(Synthroid)
sacubitril 49 mg-valsartan 51 mg 1 tab PO BID Heart Failure 11/01/23 11/01/23 11/01/23 History
tablet (Entresto)
therapeutic multivitamin 1 tab PO DAILY Supplement 11/01/23 11/01/23 11/01/23 History
torsemide 20 mg tablet 20 mg PO DAILY Fluid 11/01/23 11/01/23 11/01/23 History
Retention/Swelling
Active Medications
Generic Name Dose Route Start Last Admin
Trade Name Freq PRN Reason Stop Dose Admin
Acetaminophen 650 mg 11/02/23 02:53 11/05/23 09:18
Acetaminophen 325 Mg Tablet PO 11/30/23 02:52 650 mg
Q6HPRN PRN Administration
mild pain/ fever>100.5F
Al Hydrox/Mg Hydrox/Simethicone 30 ml 11/03/23 11:23
Mag/Al/Simethicone Suspension 30 Ml Cup PO 12/01/23 11:22
Q4HPRN PRN
indigestion
Aspirin 325 mg 11/03/23 18:00 11/05/23 08:46
Aspirin 325 Mg Tablet PO 12/01/23 17:59 325 mg
DAILY FAHAD Administration
Atorvastatin Calcium 40 mg 11/02/23 08:00 11/05/23 08:47
Atorvastatin (Lipitor) 40 Mg Tablet PO 11/30/23 07:59 40 mg
DAILY FAHAD Administration
Carvedilol 12.5 mg 11/02/23 08:00 11/05/23 08:46
Carvedilol 12.5 Mg Tablet PO 11/30/23 07:59 12.5 mg
DAILY FAHAD Administration
Dapagliflozin 10 mg 11/02/23 14:00 11/02/23 17:40
Dapagliflozin (Farxiga) 10 Mg Tablet PO 11/30/23 13:59 10 mg
DAILY FAHAD Administration
Dextrose 12.5 grams 11/01/23 18:34
Dextrose 50% (0.5 Grams/Ml) 50 Ml Syringe IV 11/29/23 18:33
[id number] PRN
hypoglycemia
Protocol
Docusate Sodium 100 mg 11/03/23 20:00 11/05/23 08:47
Docusate Sodium 100 Mg Capsule PO 12/01/23 19:59 100 mg
BID FAHAD Administration
Glucagon 1 mg 11/01/23 18:34
Glucagon 1 Mg Vial IM 11/29/23 18:33
PRN PRN
hypoglycemia
Protocol
Hydralazine HCl 25 mg 11/01/23 20:00 11/05/23 08:47
Hydralazine 25 Mg Tablet PO 11/29/23 19:59 25 mg
BID FAHAD Administration
Hydralazine HCl 5 mg 11/03/23 06:37 11/05/23 09:14
Hydralazine 20 Mg/Ml Vial IV 12/01/23 06:36 5 mg
Q4HPRN PRN Administration
sbp>140 or DBP>100
Insulin Detemir 10 units/ 0.1 mls @ 0 mls/hr 11/04/23 08:30 11/05/23 08:47
Device SC 12/02/23 08:29 0.1 mls
BID@0800,2200 FAHAD Administration
As Directed
Insulin Aspart 0 units 11/03/23 16:40 11/05/23 07:48
Insulin Aspart Low Resistance 300 Units/3 Ml Pen.Injctr SC 12/01/23 16:39 Not Given
AC FAHAD
Protocol
Insulin Aspart 9 units 11/05/23 07:30 11/05/23 10:26
Insulin Aspart (100 Units/Ml) 3 Ml Flexpen SC 12/03/23 07:29 9 units
DAILY@0730,1630 FAHAD Administration
Insulin Aspart 6 units 11/05/23 11:30
Insulin Aspart (100 Units/Ml) 3 Ml Flexpen SC 12/03/23 11:29
DAILY@1130 FAHAD
Levothyroxine Sodium 112 mcg 11/02/23 07:30 11/05/23 08:47
Levothyroxine 112 Mcg Tablet PO 11/30/23 07:29 112 mcg
DAILY@0730 FAHAD Administration
Multivitamins Therapeutic 1 tablet 11/02/23 08:00 11/05/23 08:47
Multivitamin Tablet PO 11/30/23 07:59 1 tablet
DAILY FAHAD Administration
Ondansetron HCl 4 mg 11/03/23 11:23
Ondansetron 4 Mg/2 Ml Vial IV 12/01/23 11:22
Q6HPRN PRN
nausea/vomiting
Oxycodone HCl 5 mg 11/03/23 11:24
Oxycodone 5 Mg Regular Release Tablet PO 11/17/23 11:23
Q4HPRN PRN
mild pain
Oxycodone HCl 10 mg 11/03/23 11:24 11/05/23 11:35
Oxycodone 10 Mg Regular Release Tablet PO 11/17/23 11:23 10 mg
Q4HPRN PRN Administration
moderate pain
Sodium Chloride 0 flush 11/03/23 17:00 11/05/23 00:40
Sodium Chloride 0.9% (Flush) Syringe IV 12/01/23 16:59 2 flush
PER PROTOCOL FAHAD Administration
Review of Systems
-
Negative for additional complaints on 10 point review other than those reviewed in HPI.
Physical Exam
-
GEN: No distress, awake, Ox3
HEENT: supple, anicteric, mmm
LUNGS: CTA, no wheezes/rales
CV: Reg, S1/S2, no murmur, rubs, gallops
ABD: soft, BS+, NT/ND
EXT: No edema, clubbing or cyanosis postop ORIF
NEURO: Gross non-focal
SKIN: No rash, warm, dry
Labs
Lab Results
WBC 5.9 10^3/uL (4.8-10.8) 11/05/23 05:24
RBC 2.50 10^6/uL (4.70-6.10) L 11/05/23 05:24
Hgb 7.9 g/dL (13.0-18.0) L 11/05/23 05:24
Hct 23.3 % (39.0-52.0) L 11/05/23 05:24
MCV 93.2 fL (80.0-94.0) 11/05/23 05:24
MCH 31.6 pg (27.0-31.0) H 11/05/23 05:24
MCHC 33.9 g/dL (33.0-37.0) 11/05/23 05:24
RDW 14.6 % (11.5-14.5) H 11/05/23 05:24
Plt Count 121 10^3/uL (130-400) L 11/05/23 05:24
MPV 10.1 fL (7.4-10.4) 11/05/23 05:24
Abs Immat Gran (auto) 0.0 10^3/uL (0-0.05) 11/01/23 13:56
Absolute Neuts (auto) 2.5 10^3/uL (1.4-6.5) 11/01/23 13:56
Absolute Lymphs (auto) 1.1 10^3/uL (1.2-3.4) L 11/01/23 13:56
Absolute Monos (auto) 0.4 10^3/uL (0.1-0.6) 11/01/23 13:56
Absolute Eos (auto) 0.2 10^3/uL (0-0.7) 11/01/23 13:56
Absolute Basos (auto) 0.0 10^3/uL (0-0.2) 11/01/23 13:56
Immature Gran % 0.2 % (0-0.5) 11/01/23 13:56
Neutrophils % 60.1 % (42.2-75.2) 11/01/23 13:56
Lymphocytes % 24.9 % (20.5-51.1) 11/01/23 13:56
Monocytes % 10.5 % (1.7-9.3) H 11/01/23 13:56
Eosinophils % 3.8 % (0-6) 11/01/23 13:56
Basophils % 0.5 % (0-2) 11/01/23 13:56
Creatinine 2.3 mg/dL (0.7-1.3) H 11/05/23 05:24
Vital Signs
Vital Signs
Temp Pulse Resp BP Pulse Ox
99.0 F 93 14 154/75 95
11/05/23 12:54 11/05/23 12:54 11/05/23 12:54 11/05/23 12:54 11/05/23 11:53
[2023-11-05] MEDS: NOVOLOG FLEXPEN-LOW RESISTANCE 2 UNITS SC (13:37)
[2023-11-05 14:09] LABS: Reticulocyte Count 0.6 % (0.4-2.8)
[2023-11-05 14:32] LABS: LDH 177 U/L (120-246)
[2023-11-05] MEDS: NOVOLOG FLEXPEN 6 UNITS SC (14:39)
--- NOTE | 2023-11-05 15:32 | CM ---
Reviewed the chart notes. Patient received 1 unit PRBC for Hgb 7.9 today. PT recommending SNF vs Acute Rehab. CM continues to be available to patient/family and is monitoring medical plan for needs at discharge.
Plan: Discharge plans will depend on the patient's progress.
--- NOTE | 2023-11-05 16:52 | W.PN.CARDCBS ---
Today's Communication / Plan
-
increase to usual coreg 12.5mg bid.
follow creat
Impression / Plan
-
PCP:Dr. Florez
Outpatient patternmaker all around: [facility] cardiology
Impression:
Presented 11/01/2023 with mechanical fall
Right tib-fib fracture
JAMAR
Acute on chronic anemia troponin was negative on presentation. proBNP 3550
Coronary artery disease
s/p WILMAR of large first septal equipment washer branch
Heart failure with recovered cardiomyopathy
Ischemic cardiomyopathy, recovered on Echo 02/2023
Myocardial biopsy 06/05/2022 cardiomyocytes with occasional block shaped nuclei, [place] red special stain is negative
Recurrent pleural effusions follows with Dr. Arenas thoracic surgery
Hypertension
Hyperlipidemia
Hypothyroidism
Type 2 diabetes
Chronic anemia
Obstructive sleep apnea, uses 3 L of oxygen at night
History of Pleural effusion
history of pneumonia
Sinus bradycardia on high dose Coreg
Chronic anemia
Orthostatic hypotension
Echo 03/27/2023: EF 65%, mild concentric LVH, stage I DD. No significant valvular disease
Echo 09/25/2022: EF 45%, grade 1 DD. Mildly dilated left atrium. Mild to moderate concentric LVH. Speckled appearance to myocardium consistent with infiltrative disorders such as amyloid.
Cardiac monitoring 03/20 - 03/26/2023: Sinus rhythm, range 63-108 bpm, average 78 bpm. PACs less than 1% burden.
Left heart cath May 2022: 80 to 90% stenosis in large first septal equipment washer branch status post PCI.
RHC May 2022: Mild to moderate PAP 58/20 mmHg. Normal PCWP and CO/CI
05/20/2022 equivocal PYP scan for cardiac amyloid. Light chain ratio was normal. No monoclonal spike.
06/19/2022 status post endomyocardial biopsy which was negative for cardiac amyloid
Plan:
-Presented 11/01/2023 with mechanical fall resulting in right tib-fib fracture. He underwent �R tibia IM nail, Cristina, 11/03/2023
-Dizziness/lightheadedness/hypotension on arrival with JAMAR creatinine 2.7. Suspect dehydration s/p IV fluids with improvement. JAMAR is improving creat 2.3, 11/05/23.
-Given hypotension and JAMAR held Entresto and torsemide.
-Reassess on dc and as an out pt.
-Patient has history of coronary artery disease with septal equipment washer branch WILMAR May 2022. Troponin negative and EKG shows sinus rhythm without ischemia. Patient denies chest pain.
-Continue aspirin(cardiac ASA 81mg QD) and statin for CAD.
-History of cardiomyopathy and chronic heart failure now with recovered ejection fraction on echocardiogram February 2023. Entresto and torsemide currently on hold secondary to JAMAR. Per review of outpatient cardiology records it does appear patient
has history of orthostatic hypotension and diuretics have been slowly reduced in the past. Once renal function stable consider reinitiation of Entresto. Would consider resuming diuretic at lower dose once JAMAR resolves. Resume coreg at prior outpt
dose of 12.5 BID.
-Echo here with mildly reduced LVEF, follow with outpt patternmaker all around
Patient is a 58 YOF with PMH significant for CAD s/p WILMAR of large first septal equipment washer branch, heart failure with recovered ejection fraction, cardiomyopathy recovered, hypertension, hyperlipidemia, hypothyroidism, recurrent pleural effusions,
orthostatic hypotension, diabetes, obstructive sleep apnea who utilizes oxygen at night who presents to emergency department 11/01/2023 after he sustained a mechanical fall getting out of his car. Patient reports he felt lightheaded and dizzy prior
to his fall but denies loss of consciousness. He was noted to be hypotensive on admission with blood pressure of 85/55. Hgb 8.6 JAMAR with creatinine of 2.7. He was provided IV hydration. Troponin negative and EKG shows sinus rhythm without
ischemia. He was noted to have right tib-fib fracture on x-ray. Orthopedics will be performing surgical fixation and cardiology being asked to see patient for preoperative clearance. At time of this evaluation patient denies chest pain, shortness
of breath, dizziness, lightheadedness, edema, orthopnea or PND.
Patient is a rather poor historian. I was able to obtain records from his outpatient patternmaker all around which demonstrates he had a drug-eluting stent placed to large first septal equipment washer branch in May 2022. He has been noted to have waxing and
waning cardiomyopathy over the years. Most recent echocardiogram from February 2023 with improved ejection fraction of 65%. He also had abnormal speckling on echo and was worked up for cardiac amyloid with endocardial biopsy which was negative. He
also has a history of orthostatic hypotension was felt to be secondary to dehydration. His torsemide were reduced as outpatient. He has a history of bradycardia which improved with reduction in carvedilol.
Progress Note - Estimating Manager
Subjective
Date of Service: November 05, 2023
No cp, palps, dizziness
Objective
Labs:
11/05/23 05:24
Labs
Hgb 7.9 g/dL (13.0-18.0) L 11/05/23 05:24
Hct 23.3 % (39.0-52.0) L 11/05/23 05:24
Plt Count 121 10^3/uL (130-400) L 11/05/23 05:24
PT 13.1 Sec (11.4-14.6) 11/01/23 13:57
INR 1.01 11/01/23 13:57
Sodium 138 mmol/L (135-145) 11/05/23 05:24
Potassium 5.1 mmol/L (3.5-5.1) 11/05/23 05:24
BUN 62 mg/dl (9-20) H 11/05/23 05:24
Creatinine 2.3 mg/dL (0.7-1.3) H 11/05/23 05:24
Glucose 122 mg/dl (70-99) H 11/05/23 05:24
Vital Signs and I&O:
Vital Signs
Temp Pulse Resp BP Pulse Ox
98.5 F 61 18 113/57 95
11/05/23 15:45 11/05/23 15:45 11/05/23 15:45 11/05/23 15:45 11/05/23 15:45
Vital Signs
Temp Pulse Resp BP Pulse Ox
98.5 F 61 18 113/57 95
11/05/23 15:45 11/05/23 15:45 11/05/23 15:45 11/05/23 15:45 11/05/23 15:45
Intake & Output
11/03/23 11/04/23 11/05/23 11/06/23
06:59 06:59 06:59 06:59
Intake Total 2410 / 2410 1300 / 1300 500 / 500 250 / 250
Output Total 800 / 800 450 / 450 0 / 0
Balance 1610 / 1610 850 / 850 500 / 500 250 / 250
Physical Exam
Physical Exam
General: Well developed, well nourished in NAD.
Heart: Non displaced PMI, RRR, no murmurs, No S3, S4, no rubs.
Lungs: Clear to auscultation bilaterally, no wheeze, rhonchi, rubs bilaterally,
normal expiratory phase.
Neuro: Grossly nonfocal, awake, alert and oriented x3.
[2023-11-05 17:30] LABS: Glucose - Point of Care 77 mg/dl (70-99)
[2023-11-05 18:01] LABS: Hematocrit 26.6 % (39.0-52.0)
[2023-11-05 21:33] LABS: Glucose - Point of Care 52 mg/dl (70-99)
[2023-11-05 21:51] LABS: Glucose - Point of Care 52 mg/dl (70-99)
[2023-11-05 22:15] LABS: Glucose - Point of Care 114 mg/dl (70-99)
[2023-11-05] MEDS: ROXICODONE 5 MG PO (22:34)
--- NOTE | 2023-11-05 22:55 | PTCARENOTE ---
Notified IN HOUSE COUNSEL after pt BG was 52 X2 with protocol treatment. IN HOUSE COUNSEL said okay to continue levemir at HS.
[2023-11-06 00:27] LABS: Glucose - Point of Care 104 mg/dl (70-99)
[2023-11-06] MEDS: APRESOLINE 5 MG IV ×2 (00:51→17:40)
[2023-11-06 03:00] VITALS: BP 149/81
[2023-11-06 03:18] LABS: Glucose - Point of Care 65 mg/dl (70-99)
[2023-11-06 03:37] LABS: Glucose - Point of Care 49 mg/dl (70-99)
[2023-11-06 03:59] LABS: Glucose - Point of Care 75 mg/dl (70-99)
--- NOTE | 2023-11-06 04:05 | PTCARENOTE ---
TT PILE DRIVING SUPERVISOR regarding pt's hypoglycemia, no new orders at this time. Will continue hypoglycemic protocol.
[2023-11-06 04:54] LABS: Hematocrit 26.6 % (39.0-52.0); Hemoglobin 9.1 g/dL (13.0-18.0); Mean Corp Hgb Conc. 34.2 g/dL (33.0-37.0); Mean Corpuscular Hgb 31.5 pg (27.0-31.0); Mean Platelet Volume 9.9 fL (7.4-10.4); Platelet Count 131 10^3/uL (130-400); Red Blood Cell Count 2.89 10^6/uL (4.70-6.10); Red Cell Dist. Width 14.1 % (11.5-14.5); White Blood Cell Count 5.4 10^3/uL (4.8-10.8)
[2023-11-06 05:17] LABS: Blood Urea Nitrogen 57 mg/dl (9-20); Calcium 8.2 mg/dl (8.4-10.2); Carbon Dioxide 28 mmol/L (22-30); Chloride 104 mmol/L (98-107); Estimated Creatinine Clearance 33 ml/min; Glucose 75 mg/dl (70-99); Magnesium 2.5 mg/dl (1.6-2.3); Phosphorus 4.7 mg/dl (2.5-4.5); Potassium 4.9 mmol/L (3.5-5.1); Sodium 136 mmol/L (135-145); eGFR 32.31
[2023-11-06 05:26] VITALS: BMI 23.3
[2023-11-06 06:25] LABS: Glucose - Point of Care 63 mg/dl (70-99)
[2023-11-06] MEDS: SYNTHROID 112 MCG PO (06:31)
[2023-11-06 06:46] LABS: Glucose - Point of Care 61 mg/dl (70-99)
--- NOTE | 2023-11-06 07:00 | PTCARENOTE ---
TT HOME CARE ATTENDANT of pt's hypoglycemia, no new orders at this time. Hypoglycemic protocol as ordered.
[2023-11-06 07:08] LABS: Glucose - Point of Care 60 mg/dl (70-99)
--- NOTE | 2023-11-06 07:14 | W.PN.HOSP.TC ---
Today's Communication/Plan
-
Monitor H&H transfuse for goal Hgb>8
procrit as per Hematology
ASA DVT ppx as per orthopedic
Monitor renal function
glycemic control
blood pressure control
PT/OT
Discharge planning SNF
Assessment / Plan
Assessment / Plan
Physical Exam
General: No Apparent Distress and Comfortable
Respiratory: Clear
Cardiac: S1/S2 and Regular Rhythm
GI: Soft, Non Tender and Normal Bowel Sounds
Musculoskeletal: Right lower extremity splint in place
Neuro: Nonfocal/grossly intact
58M CAD stent HFmrEF DM HTN Hypothyroidism JESSENIA CPAP 3L at night presents following fall with comminuted fractures right lower extremity and JAMAR possible overdiuresis.
# Right tib-fib fracture
Cardio eval appreciated acceptable perioperative cardiac risk for surgery as above
Orthopedic eval appreciated s/p ORIF right tibial IM nail 11/02
-strict NWB to RLE w/ assistive device
-ASA 325 mg daily x4 weeks DVT ppx
-Splint in place 2wks until post-op visit repeat X-rays and suture removal
# Type 2 diabetes- Brittle Diabetic
Diabetes OPTOMETRIST ASSISTANT consult appreciated
cont insulin regimen, titration as necessary, holds as necessary for hypoglycemia
Farxiga on hold for now
Hold premeal insulin if patient does not intend to eat his meal
#Mild Hyperkalemia
monitor
# Acute kidney injury VS CKD-hold Entresto and Lasix
# Likely reason for dizziness is patient's acute kidney injury
cautious gentle fluid IV hydration completed
cont Hold Entresto, Lasix, torsemide
considering Nephro eval if JAMAR persists/no significant improvement
cont hold diuresis at this time
Cr improved from 2.7 on admission to 2.3 possible baseline
cont to monitor
# Chronic heart failure with reduced ejection fraction
Continue beta-blockers.� Hold Entresto and Lasix/torsemide
BNP elevated possibly d/t Jamar as oppose to heart failure
ECHO appreciated EF 45-50% stage I diastolic dysfunction no significant valve abn's
Cardio eval appreciated
# Coronary artery disease with stents
Continue aspirin, statin, Coreg
# Recent admission at outside hospital for acute respiratory failure/aspiration pneumonia/Right pleural effusion-negative for malignancy
# Hypothyroidism-continue Synthroid
# Hypertension
Patient was hypotensive on admission better with IV fluids
Continue hydralazine but decrease dose to 25 twice daily
hydralazine prn
Continue Coreg increased to BID as per cardio
Monitor and titrate antihypertensive regimen as necessary.
# Anemia of Chronic Disease
#Possible anemia due to chronic renal insufficiency
#Acute blood loss anemia
Iron studies appreciated possible anemia of chronic disease
Acute on chronic anemia recent surgical procedure
transfuse for goal Hgb>8 given cardiac hx (received 1PRBC prior to surgery, post-procedure received 2PRBC for Hgb 6.6 with subsequent good response 8.9)
Hematology eval appreciated procrit given 11/06 outpt US Liver spleen recommended
#Hypocalcemia
monitor and replete as necessary
# Hyperlipidemia-continue atorvastatin
# Pulmonary nodules
# DVT prophylaxis-subcutaneous heparin
# Full code
PT/OT appreciated SNF vs Acute (PMR eval appreciated patient does not qualify for Acute, SNF recommended)
I spent a total of 56 minutes with the patient or on the floor. More than 50% of this time involved counseling and coordination of care.
Anticipated Discharge: 24 - 48 hours
Subjective/Interval History
-
Date of Service: November 06, 2023
No acute distress sitting up comfortably in bed. No new acute issues.
Objective Data
-
Labs:
Laboratory Results
11/06/23
04:40
WBC 5.4
Hgb 9.1 L
Hct 26.6 L
Plt Count 131
Sodium 136
Potassium 4.9
Chloride 104
Carbon Dioxide 28
BUN 57 H
Creatinine 2.3 H
Glucose 75
Calcium 8.2 L
Vital Signs:
Vital Signs
Temp Pulse Resp BP Pulse Ox
97.8 F 71 16 149/81 95
11/06/23 03:00 11/06/23 03:00 11/06/23 03:00 11/06/23 03:00 11/06/23 03:00
I&O
11/05/23 11/06/23 11/07/23
06:59 06:59 06:59
Intake Total 500 / 500 2360 / 2360
Output Total 0 / 0 2850 / 2850
Balance 500 / 500 -490 / -490
--- NOTE | 2023-11-06 07:21 | PN.DE.MGMTRT ---
Insulin Management
- -
11/06/2023 Diabetes Management Follow up
Patient is POD 3 s/p surgery for R fractured tibfib. Prior to admission was taking farxiga 10 mg daily levemir 8 units BID and humalog 10 to 12 units AC. Suspicion of hypoglycemia contributing to recent falls and admission to another hospital.
Levemir dose increase to 10 units BID 3, first dose @ HS, novolog also increased to 9 units. Glucose labile 3/, 11/03 and 3/7 in the evening.
Last evening glucose trended down to 52 @ HS and this AM to 63.
Will reduce AC novolog to 6 units. Will also decrease Levemir to 8 units BID, first dose this AM. Will not restart Farxiga 10 mg daily as cr remains elevated, 2.3, eGFR 32.31. Patient states he often feels like he is going to eat but then does not
contributing to hypoglycemia. He does not engage in conversation will mostly give one word answers. Flat affect.
Diabetes History
- -
Type of Diabetes: 2 requiring insulin
Pre-Admission Diabetes Regimen
11/06/23
04:40
Creatinine 2.3 H
Lab Results
Hemoglobin A1c 7.9 % (4.0-5.6) H 11/02/23 06:58
Insulin Pump Settings
IP Diabetes Regimen
11/05/23 11/05/23 11/05/23
07:31 12:16 17:29
Glucose
POC Glucose 99 242 H 77
11/05/23 11/05/23 11/05/23
21:31 21:50 22:14
Glucose
POC Glucose 52 L* 52 L* 114 H
11/06/23 11/06/23 11/06/23
00:26 03:15 03:35
Glucose
POC Glucose 104 H 65 L 49 L*
11/06/23 11/06/23 11/06/23
03:57 04:40 06:24
Glucose 75
POC Glucose 75 63 L
11/06/23 11/06/23
06:45 07:06
Glucose
POC Glucose 61 L 60 L
Meal type: Breakfast
Amount consumed: 100%
Patient Education
[2023-11-06 07:33] LABS: Glucose - Point of Care 99 mg/dl (70-99)
[2023-11-06 07:41] VITALS: BP 187/106
[2023-11-06] MEDS: LIPITOR 40 MG PO (08:34)
[2023-11-06] MEDS: ASPIRIN 325 MG PO (08:34)
[2023-11-06] MEDS: APRESOLINE 25 MG PO ×2 (08:34→20:05)
[2023-11-06] MEDS: TYLENOL 650 MG PO ×3 (08:34→23:44)
[2023-11-06] MEDS: THERAGRAN 1 TABLET PO (08:34)
[2023-11-06] MEDS: COREG 12.5 MG PO ×2 (08:34→20:05)
[2023-11-06] MEDS: COLACE 100 MG PO ×2 (08:35→20:06)
[2023-11-06] MEDS: NOVOLOG FLEXPEN-LOW RESISTANCE SC ×2 (08:35→17:44)
[2023-11-06] MEDS: NOVOLOG FLEXPEN 6 UNITS SC ×3 (08:36→17:40)
[2023-11-06] MEDS: LEVEMIR 0.0800000000000000017 UNITS SC (08:43)
[2023-11-06 09:35] LABS: Glucose - Point of Care 180 mg/dl (70-99)
--- NOTE | 2023-11-06 10:14 | PTOTSP ---
ST Evaluation
Orophayngeal function appears intact at the bedside. Speech/language/cog at reported baseline
Pt received awake/alert at the bedside. Speech fluent/intelligible in conversation. Answering open ended questions and follows 1-2 step commands. Voice is clear with adequate intensity. Pt reports speech/language/cog at baseline
Completed 100% of AM meal. No reported difficulty. Self fed trials of regular solids demo functional mastication and bolus was orally cleared. Thin liquids by straw serial sips swallow appears prompt. No overt s/sx of aspiration observed during this
eval.
Recommend
1. Continue regular solids/thin liquids
2. Meds oral with water
3. No further acute FIELD ADMINISTRATIVE ASSISTANT needs. Please reconsult as needed
[2023-11-06 10:41] VITALS: BP 114/55
--- NOTE | 2023-11-06 12:12 | W.PN.ONC ---
Today's Communication / Plan
-
Multiple etiologies of anemia hemoglobin stable 9.1 g/dL
Reticulocyte response abysmal likely reflecting deficiency of erythropoietin
Substrates appear adequate
No elevation of bilirubin or LDH to suggest hemolysis
PT PTT in the normal range
Mild thrombocytopenia with platelet dysfunction imparted by aspirin
Current events adequate to explain anemia
Assess reticulocyte count and erythropoietin level
Procrit 10,000 units today
Follow-up for outpatient ultrasound of the liver and spleen
Will follow
Impression
Impression
Multifactorial anemia
Blood loss associated with ORIF
CAD
Congestive heart failure
Diabetes mellitus
Hypertension
Hyperlipidemia
Thrombocytopenia
Subjective/Objective
Subjective/Objective
Patient resting comfortably. No acute new complaints.
Vital Signs:
Vital Signs
Temp Pulse Resp BP Pulse Ox
98 F 73 18 114/55 93
11/06/23 07:41 11/06/23 10:41 11/06/23 07:41 11/06/23 10:41 11/06/23 07:41
Physical exam: Unchanged
Lab Results:
Laboratory Data
WBC 5.4 10^3/uL (4.8-10.8) 11/06/23 04:40
Hgb 9.1 g/dL (13.0-18.0) L 11/06/23 04:40
Plt Count 131 10^3/uL (130-400) 11/06/23 04:40
PT 13.1 Sec (11.4-14.6) 11/01/23 13:57
INR 1.01 11/01/23 13:57
eGFR 32.31 11/06/23 04:40
--- NOTE | 2023-11-06 12:14 | CM ---
Reviewed the chart notes and spoke with the patient at the bedside. Reviewed PT recommendation for rehab. Patient agreeable to referrals being sent in this area where his spouse resides. Referrals with [facility] sent via [facility]. CM continues to
be available to patient/family and is monitoring medical plan for needs at discharge.
Plan: Discharge to SNF once medically stable and bed found. Precert will be required.
[2023-11-06 12:27] LABS: Glucose - Point of Care 194 mg/dl (70-99)
[2023-11-06] MEDS: NOVOLOG FLEXPEN-LOW RESISTANCE 1 UNITS SC (12:29)
[2023-11-06] MEDS: RETACRIT 10000 UNITS SC (13:12)
[2023-11-06 15:08] VITALS: BP 161/79
--- NOTE | 2023-11-06 16:07 | W.PN.CARDCBS ---
Addendum entered and electronically signed by Adelso Hernández MD 11/06/23 17:06:
I saw and examined the patient.
The FRONT OFFICE SPEC or PA's note was reviewed and I agree with the note.
Comment: General: Well developed, well nourished in NAD.
Neck: Supple, no JVD, HJR, carotids +2 B/L, no bruits bilaterally.
Heart: Non displaced PMI, RRR, no murmurs, No S3, S4, no rubs.
Lungs: Scattered rhonchi
Extremities: No clubbing, cyanosis or edema bilaterally.
Neuro: Grossly nonfocal, awake, alert and oriented x3.
Continue to hold Entresto, torsemide, Farxiga. Creatinine seems to have plateaued. No signs or symptoms of CHF at present
Original Note:
Today's Communication / Plan
-
Continue coreg
Follow creat and resume entresto, torsemide, and farxiga as able
OP follow up with primary general i farmworker.
Impression / Plan
-
PCP:Dr. Florez
Outpatient general i farmworker: [facility] cardiology
Impression:
Presented 11/01/2023 with mechanical fall
Right tib-fib fracture
JAMAR
Acute on chronic anemia
Coronary artery disease
s/p WILMAR of large first septal photoengraving apprentice branch
Heart failure with recovered cardiomyopathy
Ischemic cardiomyopathy, recovered on Echo 02/2023
Myocardial biopsy 06/05/2022 cardiomyocytes with occasional block shaped nuclei, [place] red special stain is negative
Recurrent pleural effusions follows with Dr. Arenas thoracic surgery
Hypertension
Hyperlipidemia
Hypothyroidism
Type 2 diabetes
Chronic anemia
Obstructive sleep apnea, uses 3 L of oxygen at night
History of Pleural effusion
history of pneumonia
Sinus bradycardia on high dose Coreg
Chronic anemia
Orthostatic hypotension
Echo 11/02/2023: EF 45 to 50%, mild concentric LVH, global hypokinesis, stage I diastolic dysfunction, no significant valvular disease, trivial pericardial effusion
Echo 03/27/2023: EF 65%, mild concentric LVH, stage I DD. No significant valvular disease
Echo 09/25/2022: EF 45%, grade 1 DD. Mildly dilated left atrium. Mild to moderate concentric LVH. Speckled appearance to myocardium consistent with infiltrative disorders such as amyloid.
Cardiac monitoring 03/20 - 03/26/2023: Sinus rhythm, range 63-108 bpm, average 78 bpm. PACs less than 1% burden.
Left heart cath May 2022: 80 to 90% stenosis in large first septal photoengraving apprentice branch status post PCI.
RHC May 2022: Mild to moderate PAP 58/20 mmHg. Normal PCWP and CO/CI
05/20/2022 equivocal PYP scan for cardiac amyloid. Light chain ratio was normal. No monoclonal spike.
06/19/2022 status post endomyocardial biopsy which was negative for cardiac amyloid
Plan:
-Presented 11/01/2023 with mechanical fall resulting in right tib-fib fracture. He underwent�R tibia IM nail w/ Dr. Evans on 11/03/2023
-He has h/o CM and chronic heart failure with recovered EF. On Entresto, Coreg, Farxiga, hydralazine, and torsemide as OP
-Dizziness/lightheadedness/hypotension on arrival with creatinine 2.7. Suspect dehydration s/p IV fluids with improvement in creat, down to 2.3, 11/06/23.
-Given JAMAR and hypotension, Entresto and torsemide remain on hold. Continue to follow and resume as able
-Patient has history of coronary artery disease with septal photoengraving apprentice branch WILMAR May 2022.
-Troponin negative this admission. Remains chest pain-free.
-Continue aspirin(cardiac ASA 81mg QD) and statin for CAD.
-Echo 11/02/2023 with EF 45 to 50%. Continue Coreg 12.5 mg twice daily. As noted above, ideally would resume Entresto, Farxiga, and diuretic as able.
-Anemia noted with hemoglobin 9.1 on 11/05. s/p 4 units PRBCs this admission. Heme/onc following. Workup ongoing
-Follow-up with primary general i farmworker at d/c.
Patient is a 58 YOF with PMH significant for CAD s/p WILMAR of large first septal photoengraving apprentice branch, heart failure with recovered ejection fraction, cardiomyopathy recovered, hypertension, hyperlipidemia, hypothyroidism, recurrent pleural effusions,
orthostatic hypotension, diabetes, obstructive sleep apnea who utilizes oxygen at night who presents to emergency department 11/01/2023 after he sustained a mechanical fall getting out of his car. Patient reports he felt lightheaded and dizzy prior
to his fall but denies loss of consciousness. He was noted to be hypotensive on admission with blood pressure of 85/55. Hgb 8.6 JAMAR with creatinine of 2.7. He was provided IV hydration. Troponin negative and EKG shows sinus rhythm without
ischemia. He was noted to have right tib-fib fracture on x-ray. Orthopedics will be performing surgical fixation and cardiology being asked to see patient for preoperative clearance. At time of this evaluation patient denies chest pain, shortness
of breath, dizziness, lightheadedness, edema, orthopnea or PND. Patient is a rather poor historian. I was able to obtain records from his outpatient general i farmworker which demonstrates he had a drug-eluting stent placed to large first septal photoengraving apprentice
branch in May 2022. He has been noted to have waxing and waning cardiomyopathy over the years. Most recent echocardiogram from February 2023 with improved ejection fraction of 65%. He also had abnormal speckling on echo and was worked up for
cardiac amyloid with endocardial biopsy which was negative. He also has a history of orthostatic hypotension was felt to be secondary to dehydration. His torsemide were reduced as outpatient. He has a history of bradycardia which improved with
reduction in carvedilol.
Progress Note - Curriculum And Assessment Coordinator
Subjective
Date of Service: November 06, 2023
No complaints.
Objective
Labs:
11/06/23 04:40
11/06/23 04:40
Labs
Hgb 9.1 g/dL (13.0-18.0) L 11/06/23 04:40
Hct 26.6 % (39.0-52.0) L 11/06/23 04:40
Plt Count 131 10^3/uL (130-400) 11/06/23 04:40
PT 13.1 Sec (11.4-14.6) 11/01/23 13:57
INR 1.01 11/01/23 13:57
Sodium 136 mmol/L (135-145) 11/06/23 04:40
Potassium 4.9 mmol/L (3.5-5.1) 11/06/23 04:40
BUN 57 mg/dl (9-20) H 11/06/23 04:40
Creatinine 2.3 mg/dL (0.7-1.3) H 11/06/23 04:40
Glucose 75 mg/dl (70-99) 11/06/23 04:40
Vital Signs and I&O:
Vital Signs
Temp Pulse Resp BP Pulse Ox
98 F 73 18 114/55 93
11/06/23 07:41 11/06/23 10:41 11/06/23 07:41 11/06/23 10:41 11/06/23 07:41
Vital Signs
Temp Pulse Resp BP Pulse Ox
98 F 73 18 114/55 93
11/06/23 07:41 11/06/23 10:41 11/06/23 07:41 11/06/23 10:41 11/06/23 07:41
Intake & Output
11/04/23 11/05/23 11/06/23 11/07/23
06:59 06:59 06:59 06:59
Intake Total 1300 / 1300 500 / 500 2360 / 2360
Output Total 450 / 450 0 / 0 2850 / 2850
Balance 850 / 850 500 / 500 -490 / -490
Physical Exam
Physical Exam
GEN: No distress, awake, alert, oriented x3
HEENT: supple, anicteric, mmm
LUNGS: CTA b/l, no wheezes/rales
CV: Reg, S1/S2, no murmur
EXT: No clubbing, cyanosis, or edema. RLE in splint
NEURO: Gross non-focal
SKIN: Warm, dry, no rash
[2023-11-06 16:58] LABS: Glucose - Point of Care 79 mg/dl (70-99)
--- NOTE | 2023-11-06 18:35 | CON.MD ---
Consultation - Medical
-
Referring Provider: Dr. Bibi Pichardo
Chief Complaint: Tib-fib fracture
History of Present Illness: 58-year-old male with PMH (as below) presented to [facility] on 11/01/2023 after mechanical fall after episode of feeling lightheaded and dizzy. Found to have a right tib-fib fracture on x-ray requiring IM nail
11/03/2023. Nonweightbearing right lower extremity
Past Medical History: CAD, heart failure with recovered ejection fraction, cardiomyopathy recovered, hypertension, hyperlipidemia, hypothyroidism, recurrent pleural effusions, orthostatic hypotension, diabetes, obstructive sleep apnea who utilizes
oxygen at night
Procedure History: Coronary WILMAR of large first septal insurance counsel branch, [place] teeth extraction, eye surgery, thoracentesis
Family History: Step-daughter and her boyfriend
Social History:
Functional Level Premorbidly: Independent with all activities, has oxygen and walker at home.
Functional Level Currently:�� Min assist bed mobility, mod assist transfers. Hopping 5 hops x 2 on the left foot with rolling walker mod assist.
Tobacco: Former
Alcohol: Occasional
Drug use: Denies
Lives with: Stepdaughter
24-hour assistance available: No
Number of floors: 3
# steps to enter: 5
# steps to second floor: Full flight
Potential First floor set up: No
Driving: Yes
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
�
Allergies:
Allergy/AdvReac Type Severity Reaction Status Date / Time
No Known Allergies Allergy Verified 11/01/23 13:43
Review of Systems:
Constitutional: (x) abNormal _tired
Eye: (x) Normal _
Ear/Nose/Throat: (x) Normal _
Respiratory: (x) Normal _
Cardiovascular: (x) Normal _
Gastrointestinal: (x) abNormal _ constipated
Genitourinary: (x) Normal _
Musculoskeletal: (x) abNormal _ Right leg pain
Integumentary: (x) Normal _
Neurologic: (x) Normal _
Psychiatric: (x) Normal _
Endocrine: (x) Normal _
Hematologic/Lymphatic: (x) Normal _
Allergic/Immunologic: (x) Normal _
Medications:
Active Current Visit Medication List
Category Date Time Status
Acetaminophen [Tylenol] Med 11/02/23 02:53 Active
650 mg PO Q6HPRN PRN
Aspirin Med 11/03/23 18:00 Active
325 mg PO DAILY
Atorvastatin [Lipitor] Med 11/02/23 08:00 Active
40 mg PO DAILY
Carvedilol [Coreg] Med 11/05/23 20:00 Active
12.5 mg PO BID
Dapagliflozin [Farxiga] Med 11/02/23 14:00 Hold
10 mg PO DAILY
Dextrose 50%-Water [Dextrose 50% Syringe] Med 11/01/23 18:34 Active
12.5 grams IV [id number] PRN
Docusate Sodium [Colace] Med 11/03/23 20:00 Active
100 mg PO BID
Flush (0.9% Sodium Chloride) [Flush (Nss)] Med 11/03/23 17:00 Active
See Dose Instructions IV PER PROTOCOL
Glucagon [GlucaGen] Med 11/01/23 18:34 Active
1 mg IM PRN PRN
HydrALAZINE [Apresoline] Med 11/01/23 20:00 Active
25 mg PO BID
HydrALAZINE [Apresoline] Med 11/03/23 06:37 Active
5 mg IV Q4HPRN PRN
Insulin Aspart Corrective Low [Novolog Flexpen-Low Med 11/03/23 16:40 Active
Resistance]
See Protocol SC AC
Insulin Aspart Pen [Novolog Flexpen] Med 11/06/23 07:30 Active
6 units SC DAILY@0730,1630
Insulin Aspart Pen [Novolog Flexpen] Med 11/05/23 11:30 Active
6 units SC DAILY@1130
Insulin Detemir Levemir [Levemir] 8 units Med 11/06/23 08:00 Active
Subcutaneous Insulin Syringe [Syringe-Insulin] 0 unit
SC BID@0800,2200
Levothyroxine [Synthroid] Med 11/02/23 07:30 Active
112 mcg PO DAILY@0730
Mag Hydrox/Al Hydrox/Simeth [Maalox] Med 11/03/23 11:23 Active
30 ml PO Q4HPRN PRN
Multivitamin [Theragran] Med 11/02/23 08:00 Active
1 tablet PO DAILY
Ondansetron Injectable [Zofran] Med 11/03/23 11:23 Active
4 mg IV Q6HPRN PRN
Oxycodone [Roxicodone] Med 11/03/23 11:24 Active
10 mg PO Q4HPRN PRN
Oxycodone [Roxicodone] Med 11/03/23 11:24 Active
5 mg PO Q4HPRN PRN
Vitals:
Temp Pulse Resp BP Pulse Ox
98.2 F 74 18 153/75 98
11/06/23 15:08 11/06/23 20:05 11/06/23 15:08 11/06/23 20:05 11/06/23 15:08
Height 5 ft 7 in
Actual Weight 67.358 kg
Body Mass Index (BMI) 23.3
Physical Exam:
General Appearance/Observation: Well-developed, well-nourished male in no apparent distress.
Pain/Comfort Assessment: 11/07 right leg
Mood/Affect: Appropriate
Integumentary/Operative Site: Right leg dressed with katherine wrap and in splint.
Eyes: Conjunctiva/Lids: normal ��� Pupils: pupils equal round and reactive to light
Ears/Nose/Throat: oral mucosa moist,� throat clear.������������ Lips/Teeth/Gums: normal
Cardiovascular: Heart: regular, no murmur
Pulses: dorsalis pedis 2+ bilaterally
Respiratory: Respiratory Effort/Chest Expansion: normal ������ Auscultation: Clear to auscultation bilaterally
Gastrointestinal: abdomen not tender, no distension, normal abdominal bowel sounds
Genitourinary: No [place]
Extremities: Edema: None Cyanosis: None Trophic changes: None
Neurology Exam:
Orientation: Alert, Oriented to self, Time, Place
Memory: Intact for recent medical concerns
Comprehension: Intact
Two step command: Intact
Cranial Nerves:
�� CNII: Pupillary light reflex: Intact���
�� CN VII: Facial movement: Symmetric
�� CN VIII: Hearing: Normal
�� CN IX/X: Speech & swallow: Normal, Position of Uvula: Midline
�� CN XII: Tongue protrusion: Midline
Sensory:
�� Light touch: Intact in bilateral upper and lower extremities
Musculoskeletal:Motor: (Manual muscle scale 0-5)
Muscle SA EF WE EE FF FA HF KE DF EHL PF
Right� 5 5 5 4 NT NT 5 NT
Left 5 5 5 5 5 5 5 5
Tone: Normal in B/L upper and left LE
Range of Motion: Passively within normal limits in all extremities
Lab Results
Laboratory Data
11/06/23 04:40
11/06/23 04:40
PT 13.1 Sec (11.4-14.6) 11/01/23 13:57
INR 1.01 11/01/23 13:57
Total Bilirubin 0.4 mg/dl (0.2-1.3) 11/01/23 13:56
AST 28 U/L (17-59) 11/01/23 13:56
ALT 13 U/L (0-50) 11/01/23 13:56
Alkaline Phosphatase 99 U/L (38-126) 11/01/23 13:56
Total Protein 6.1 g/dl (6.3-8.2) L 11/01/23 13:56
Albumin 3.7 g/dl (3.5-5.0) 11/01/23 13:56
�
Diagnostic Results: as per HPI
Assessment
58-year-old male with PMH (CAD, heart failure with recovered ejection fraction, cardiomyopathy recovered, hypertension, hyperlipidemia, hypothyroidism, recurrent pleural effusions, orthostatic hypotension, diabetes, obstructive sleep apnea who
utilizes oxygen at night) with 11/01/2023 mechanical fall and right tib-fib fracture on x-ray requiring IM nail 11/03/2023. Nonweightbearing right lower extremity.
Plan
PM&R PT/OT to increase independence with ADLs, improve balance, coordination, endurance, strength, mobility, community reintegration, decreased burden of care on others and family education.
R tib-fib fracture: S/P ORIF right tibial IM nail 11/02: In splint NWB, management per ortho.
Anemia: Likely multifactorial.� Continue to monitor.
JAMAR/CKD: per medicine.
Pain: acetaminophen or oxycodone as needed.
Bowel: Colace and Senna, PRN bisacodyl.
Bladder: Time void, PVRs, PRN straight cath.
DVT Prophylaxis: mechanical and aspirin
Pulmonary: Incentive spirometry
Safety: Continue to reinforce assistance with all transfers.
Code Status:� Full code
Dispo (date/plan/equipment needs): Home with family care.
Functional and Medical Goals: Modified Independent with ADL�s, ambulation, transfers
Discharge Destination: SNF
Summary of recommendations:
- Discharge Destination: SNF
R tib-fib fracture: S/P ORIF right tibial IM nail 11/02: In splint NWB, management per ortho.
JAMAR/CKD: per medicine.
Pain: acetaminophen or oxycodone as needed.
Bowel: Colace and Senna, PRN bisacodyl.
Bladder: Time void, PVRs, PRN straight cath.
DVT Prophylaxis: mechanical and aspirin
Pulmonary: Incentive spirometry
Thank you for allowing me to care for your patient. Please contact me with any questions or concerns.
[2023-11-06 20:04] VITALS: BP 153/75
[2023-11-06 21:21] LABS: Glucose - Point of Care 63 mg/dl (70-99)
--- NOTE | 2023-11-06 21:26 | PTCARENOTE ---
Pt blood glucose 63, provided 8oz of apple juice and heather crackers at thsi time. Pt asymptomatic, following commands, reports he usually does not have symptoms with low blood sugar.
[2023-11-06 21:49] LABS: Glucose - Point of Care 83 mg/dl (70-99)
--- NOTE | 2023-11-06 22:06 | PTCARENOTE ---
Pt blood glucose after hypoglycemic protocol is 83. House provider notified and reported to hold scheduled Levemir 8 units this evening. Will continue to follow protocol. Pt resting comfortably, following commands.
[2023-11-06] MEDS: LEVEMIR SC (22:45)
[2023-11-06 23:00] VITALS: BP 144/79
[2023-11-06 23:56] LABS: Glucose - Point of Care 158 mg/dl (70-99)
[2023-11-07 03:09] LABS: Glucose - Point of Care 219 mg/dl (70-99)
[2023-11-07 05:29] VITALS: BMI 23.5
[2023-11-07 07:14] LABS: Hematocrit 25.8 % (39.0-52.0); Hemoglobin 8.8 g/dL (13.0-18.0); Mean Corp Hgb Conc. 34.1 g/dL (33.0-37.0); Mean Corpuscular Hgb 31.9 pg (27.0-31.0); Mean Corpuscular Volume 93.5 fL (80.0-94.0); Mean Platelet Volume 10.2 fL (7.4-10.4); Platelet Count 139 10^3/uL (130-400); Red Blood Cell Count 2.76 10^6/uL (4.70-6.10); Red Cell Dist. Width 13.4 % (11.5-14.5); White Blood Cell Count 5.6 10^3/uL (4.8-10.8)
[2023-11-07 07:25] VITALS: BP 158/81
[2023-11-07 07:37] LABS: Blood Urea Nitrogen 60 mg/dl (9-20); Calcium 8.1 mg/dl (8.4-10.2); Carbon Dioxide 25 mmol/L (22-30); Chloride 99 mmol/L (98-107); Estimated Creatinine Clearance 33 ml/min; Glucose 236 mg/dl (70-99); Magnesium 2.3 mg/dl (1.6-2.3); Potassium 5.1 mmol/L (3.5-5.1); Sodium 131 mmol/L (135-145); eGFR 32.31
[2023-11-07 07:53] LABS: Glucose - Point of Care 232 mg/dl (70-99)
--- NOTE | 2023-11-07 07:59 | W.PN.HOSP.TC ---
Today's Communication/Plan
-
Resume Entresto Torsemide Farxiga as per Cardio
Monitor renal function
Monitor H&H transfuse for goal Hgb>8
procrit as per Hematology
ASA DVT ppx as per orthopedic
glycemic control
blood pressure control
PT/OT
Discharge planning SNF
Assessment / Plan
Assessment / Plan
Physical Exam
General: No Apparent Distress and Comfortable
Respiratory: Clear
Cardiac: S1/S2 and Regular Rhythm
GI: Soft, Non Tender and Normal Bowel Sounds
Musculoskeletal: Right lower extremity splint in place
Neuro: Nonfocal/grossly intact
58M CAD stent HFmrEF DM HTN Hypothyroidism JESSENIA CPAP 3L at night presents following fall with comminuted fractures right lower extremity and JAMAR possible overdiuresis.
# Right tib-fib fracture
Cardio eval appreciated acceptable perioperative cardiac risk for surgery as above
Orthopedic eval appreciated s/p ORIF right tibial IM nail 11/02
-strict NWB to RLE w/ assistive device
-ASA 325 mg daily x4 weeks DVT ppx
-Splint in place 2wks until post-op visit repeat X-rays and suture removal
# Type 2 diabetes- Brittle Diabetic
Diabetes PRODUCT TEST ENGINEER consult appreciated
cont insulin regimen, titration as necessary, holds as necessary for hypoglycemia
Farxiga on hold for now
Hold premeal insulin if patient does not intend to eat his meal
#Mild Hyperkalemia
monitor
# Acute kidney injury VS CKD-hold Entresto and Lasix
# Likely reason for dizziness is patient's acute kidney injury
cautious gentle fluid IV hydration completed
cont Hold Entresto, Lasix, torsemide
considering Nephro eval if JAMAR persists/no significant improvement
cont hold diuresis at this time
Cr improved from 2.7 on admission to 2.3 possible baseline
cont to monitor
# Chronic heart failure with reduced ejection fraction
Continue beta-blockers.� Hold Entresto and Lasix/torsemide
BNP elevated possibly d/t Jamar as oppose to heart failure
ECHO appreciated EF 45-50% stage I diastolic dysfunction no significant valve abn's
Cardio eval appreciated home Entresto Torsemide Farxiga resumed 11/06
# Coronary artery disease with stents
Continue aspirin, statin, Coreg
# Recent admission at outside hospital for acute respiratory failure/aspiration pneumonia/Right pleural effusion-negative for malignancy
# Hypothyroidism-continue Synthroid
# Hypertension
Patient was hypotensive on admission better with IV fluids
Continue hydralazine but decrease dose to 25 twice daily
hydralazine prn
Continue Coreg increased to BID as per cardio
Monitor and titrate antihypertensive regimen as necessary.
# Anemia of Chronic Disease
#Possible anemia due to chronic renal insufficiency
#Acute blood loss anemia
Iron studies appreciated possible anemia of chronic disease
Acute on chronic anemia recent surgical procedure
transfuse for goal Hgb>8 given cardiac hx (received 1PRBC prior to surgery, post-procedure received 2PRBC for Hgb 6.6 with subsequent good response 8.9)
Hematology eval appreciated procrit given 11/06 outpt US Liver spleen recommended
#Hypocalcemia
monitor and replete as necessary
# Hyperlipidemia-continue atorvastatin
# Pulmonary nodules
# DVT prophylaxis-subcutaneous heparin
# Full code
PT/OT appreciated SNF vs Acute (PMR eval appreciated patient does not qualify for Acute, SNF recommended)
I spent a total of 54 minutes with the patient or on the floor. More than 50% of this time involved counseling and coordination of care.
Anticipated Discharge: 24 - 48 hours
Subjective/Interval History
-
Date of Service: November 07, 2023
Seen and examined at bedside in no acute distress sitting up comfortably in bed. reports pain well controlled. Denies new acute issues at this time.
Objective Data
-
Labs:
Laboratory Results
11/07/23
05:56
WBC 5.6
Hgb 8.8 L
Hct 25.8 L
Plt Count 139
Sodium 131 L
Potassium 5.1
Chloride 99
Carbon Dioxide 25
BUN 60 H
Creatinine 2.3 H
Glucose 236 H
Calcium 8.1 L
Vital Signs:
Vital Signs
Temp Pulse Resp BP Pulse Ox
97.9 F 82 14 144/79 94
11/06/23 23:00 11/06/23 23:00 11/06/23 23:00 11/06/23 23:00 11/06/23 23:00
I&O
11/06/23 11/07/23 11/08/23
06:59 06:59 07:59
Intake Total 2360 / 2360 1200 / 1200
Output Total 2850 / 2850 300 / 300
Balance -490 / -490 900 / 900
[2023-11-07] MEDS: APRESOLINE 25 MG PO ×2 (08:25→20:50)
[2023-11-07] MEDS: THERAGRAN 1 TABLET PO (08:25)
[2023-11-07] MEDS: TYLENOL 650 MG PO (08:25)
[2023-11-07] MEDS: COLACE 100 MG PO ×2 (08:25→20:50)
[2023-11-07] MEDS: SYNTHROID 112 MCG PO (08:25)
[2023-11-07] MEDS: LIPITOR 40 MG PO (08:25)
[2023-11-07] MEDS: COREG 12.5 MG PO ×2 (08:25→20:51)
[2023-11-07] MEDS: ASPIRIN 325 MG PO (08:25)
[2023-11-07] MEDS: LEVEMIR 0.0800000000000000017 UNITS SC ×2 (08:26→21:52)
[2023-11-07] MEDS: NOVOLOG FLEXPEN 6 UNITS SC ×5 (08:26→18:11)
[2023-11-07] MEDS: NOVOLOG FLEXPEN-LOW RESISTANCE 2 UNITS SC ×2 (08:26→13:13)
--- NOTE | 2023-11-07 11:19 | W.PN.CARDCBS ---
Today's Communication / Plan
-
Resume Entresto, torsemide, Farxiga and follow renal function
Stable cardiology status
Impression / Plan
-
PCP:Dr. Florez
Outpatient sales center associate: Júnior [facility]
Impression:
Presented 11/01/2023 with mechanical fall
Right tib-fib fracture
JAMAR
Acute on chronic anemia
Coronary artery disease
s/p WILMAR of large first septal junior programmer analyst branch
Heart failure with recovered cardiomyopathy
Ischemic cardiomyopathy, recovered on Echo 02/2023
Myocardial biopsy 06/05/2022 cardiomyocytes with occasional block shaped nuclei, Congo red special stain is negative
Recurrent pleural effusions follows with Dr. Arenas thoracic surgery
Hypertension
Hyperlipidemia
Hypothyroidism
Type 2 diabetes
Chronic anemia
Obstructive sleep apnea, uses 3 L of oxygen at night
History of Pleural effusion
history of pneumonia
Sinus bradycardia on high dose Coreg
Chronic anemia
Orthostatic hypotension
Echo 11/02/2023: EF 45 to 50%, mild concentric LVH, global hypokinesis, stage I diastolic dysfunction, no significant valvular disease, trivial pericardial effusion
Echo 03/27/2023: EF 65%, mild concentric LVH, stage I DD. No significant valvular disease
Echo 09/25/2022: EF 45%, grade 1 DD. Mildly dilated left atrium. Mild to moderate concentric LVH. Speckled appearance to myocardium consistent with infiltrative disorders such as amyloid.
Cardiac monitoring 03/20 - 03/26/2023: Sinus rhythm, range 63-108 bpm, average 78 bpm. PACs less than 1% burden.
Left heart cath May 2022: 80 to 90% stenosis in large first septal junior programmer analyst branch status post PCI.
RHC May 2022: Mild to moderate PAP 58/20 mmHg. Normal PCWP and CO/CI
05/20/2022 equivocal PYP scan for cardiac amyloid. Light chain ratio was normal. No monoclonal spike.
06/19/2022 status post endomyocardial biopsy which was negative for cardiac amyloid
Plan:
He appears stable from cardiology viewpoint
Of note Entresto, Farxiga, torsemide were held because of RI which has not changed and RI is at baseline
Will resume entresto, torsemide, farxiga
Suspect dehydration on admission s/p IV fluids with improvement in creat, down to 2.3, 11/07/23.
Anemia noted with hemoglobin 8.8 on 11/05. s/p 4 units PRBCs this admission. Heme/onc following. Workup ongoing
Follow-up with primary sales center associate at d/c.
Discussed with primary service
Patient is a 58 YOF with PMH significant for CAD s/p WILMAR of large first septal junior programmer analyst branch, heart failure with recovered ejection fraction, cardiomyopathy recovered, hypertension, hyperlipidemia, hypothyroidism, recurrent pleural effusions,
orthostatic hypotension, diabetes, obstructive sleep apnea who utilizes oxygen at night who presents to emergency department 11/01/2023 after he sustained a mechanical fall getting out of his car. Patient reports he felt lightheaded and dizzy prior
to his fall but denies loss of consciousness. He was noted to be hypotensive on admission with blood pressure of 85/55. Hgb 8.6 JAMAR with creatinine of 2.7. He was provided IV hydration. Troponin negative and EKG shows sinus rhythm without
ischemia. He was noted to have right tib-fib fracture on x-ray. Orthopedics will be performing surgical fixation and cardiology being asked to see patient for preoperative clearance. At time of this evaluation patient denies chest pain, shortness
of breath, dizziness, lightheadedness, edema, orthopnea or PND. Patient is a rather poor historian. I was able to obtain records from his outpatient sales center associate which demonstrates he had a drug-eluting stent placed to large first septal junior programmer analyst
branch in May 2022. He has been noted to have waxing and waning cardiomyopathy over the years. Most recent echocardiogram from February 2023 with improved ejection fraction of 65%. He also had abnormal speckling on echo and was worked up for
cardiac amyloid with endocardial biopsy which was negative. He also has a history of orthostatic hypotension was felt to be secondary to dehydration. His torsemide were reduced as outpatient. He has a history of bradycardia which improved with
reduction in carvedilol.
Progress Note - Professional Shopper
Subjective
Date of Service: November 07, 2023
No complaints.
Objective
Labs:
11/07/23 05:56
11/07/23 05:56
Labs
Hgb 8.8 g/dL (13.0-18.0) L 11/07/23 05:56
Hct 25.8 % (39.0-52.0) L 11/07/23 05:56
Plt Count 139 10^3/uL (130-400) 11/07/23 05:56
PT 13.1 Sec (11.4-14.6) 11/01/23 13:57
INR 1.01 11/01/23 13:57
Sodium 131 mmol/L (135-145) L 11/07/23 05:56
Potassium 5.1 mmol/L (3.5-5.1) 11/07/23 05:56
BUN 60 mg/dl (9-20) H 11/07/23 05:56
Creatinine 2.3 mg/dL (0.7-1.3) H 11/07/23 05:56
Glucose 236 mg/dl (70-99) H 11/07/23 05:56
Vital Signs and I&O:
Vital Signs
Temp Pulse Resp BP Pulse Ox
98.4 F 90 16 158/81 94
11/07/23 07:25 11/07/23 07:25 11/07/23 07:25 11/07/23 07:25 11/06/23 23:00
Vital Signs
Temp Pulse Resp BP Pulse Ox
98.4 F 90 16 158/81 94
11/07/23 07:25 11/07/23 07:25 11/07/23 07:25 11/07/23 07:25 11/06/23 23:00
Intake & Output
11/05/23 11/06/23 11/07/23 11/08/23
06:59 06:59 06:59 07:59
Intake Total 500 / 500 2360 / 2360 1200 / 1200
Output Total 0 / 0 2850 / 2850 300 / 300
Balance 500 / 500 -490 / -490 900 / 900
Physical Exam
Physical Exam
General: Well developed, well nourished in NAD.
Neck: Supple, no JVD, HJR, carotids +2 B/L, no bruits bilaterally.
Heart: Non displaced PMI, RRR, no murmurs, No S3, S4, no rubs.
Lungs: Clear to auscultation bilaterally, no wheeze, rhonchi, rubs bilaterally,
normal expiratory phase.
Extremities: No clubbing, cyanosis or edema bilaterally.
Neuro: Grossly nonfocal, awake, alert and oriented x3.
[2023-11-07 12:00] LABS: Glucose - Point of Care 205 mg/dl (70-99)
[2023-11-07] MEDS: FARXIGA 10 MG PO (13:13)
[2023-11-07] MEDS: DEMADEX 20 MG PO (13:13)
[2023-11-07 15:20] VITALS: BP 174/91
[2023-11-07] MEDS: APRESOLINE 5 MG IV (16:12)
[2023-11-07 16:43] LABS: Glucose - Point of Care 187 mg/dl (70-99)
[2023-11-07] MEDS: NOVOLOG FLEXPEN-LOW RESISTANCE 1 UNITS SC (18:07)
[2023-11-07 19:47] LABS: Glucose - Point of Care 187 mg/dl (70-99)
[2023-11-07] MEDS: ENTRESTO 49 MG/51 MG 1 TAB PO (20:51)
[2023-11-07 21:34] LABS: Glucose - Point of Care 175 mg/dl (70-99)
[2023-11-07 22:04] VITALS: BP 155/79
[2023-11-07 22:22] LABS: Erythropoietin (EPO) 15 mU/mL (4-27)
[2023-11-08 03:27] LABS: Glucose - Point of Care 153 mg/dl (70-99)
[2023-11-08 06:32] LABS: Hematocrit 25.2 % (39.0-52.0); Hemoglobin 8.6 g/dL (13.0-18.0); Mean Corp Hgb Conc. 34.1 g/dL (33.0-37.0); Mean Corpuscular Hgb 31.3 pg (27.0-31.0); Mean Corpuscular Volume 91.6 fL (80.0-94.0); Mean Platelet Volume 9.9 fL (7.4-10.4); Platelet Count 171 10^3/uL (130-400); Red Blood Cell Count 2.75 10^6/uL (4.70-6.10); Red Cell Dist. Width 13.4 % (11.5-14.5); White Blood Cell Count 4.7 10^3/uL (4.8-10.8)
[2023-11-08 06:55] LABS: Free Kappa Light Chains,Quant 87.09 mg/L (3.30-19.40); Free Lambda Light Chains,Quant 54.85 mg/L (5.71-26.30); Kappa/Lambda Fr Light Ratio 1.59 (0.26-1.65)
[2023-11-08 06:56] LABS: Blood Urea Nitrogen 61 mg/dl (9-20); Calcium 8.1 mg/dl (8.4-10.2); Carbon Dioxide 27 mmol/L (22-30); Chloride 103 mmol/L (98-107); Estimated Creatinine Clearance 33 ml/min; Glucose 121 mg/dl (70-99); Magnesium 2.4 mg/dl (1.6-2.3); Phosphorus 4.1 mg/dl (2.5-4.5); Potassium 4.7 mmol/L (3.5-5.1); Sodium 135 mmol/L (135-145); eGFR 32.31
--- NOTE | 2023-11-08 07:33 | W.PN.HOSP.TC ---
Today's Communication/Plan
-
Medically stable for discharge SNF rehab pending placement
Assessment / Plan
Assessment / Plan
Physical Exam
General: No Apparent Distress and Comfortable
Respiratory: Clear
Cardiac: S1/S2 and Regular Rhythm
GI: Soft, Non Tender and Normal Bowel Sounds
Musculoskeletal: Right lower extremity splint in place
Neuro: Nonfocal/grossly intact
58M CAD stent HFmrEF DM HTN Hypothyroidism JESSENIA CPAP 3L at night presents following fall with comminuted fractures right lower extremity and JAMAR possible overdiuresis.
# Right tib-fib fracture
Cardio eval appreciated acceptable perioperative cardiac risk for surgery as above
Orthopedic eval appreciated s/p ORIF right tibial IM nail 11/02
-strict NWB to RLE w/ assistive device
-ASA 325 mg daily x4 weeks DVT ppx
-Splint in place 2wks until post-op visit repeat X-rays and suture removal
# Type 2 diabetes- Brittle Diabetic
Diabetes FLUTE POLISHER consult appreciated
cont insulin regimen, titration as necessary, holds as necessary for hypoglycemia
Farxiga on hold for now
Hold premeal insulin if patient does not intend to eat his meal
#Mild Hyperkalemia
monitor
# Acute kidney injury VS CKD-hold Entresto and Lasix
# Likely reason for dizziness is patient's acute kidney injury
cautious gentle fluid IV hydration completed
cont Hold Entresto, Lasix, torsemide
considering Nephro eval if JAMRA persists/no significant improvement
cont hold diuresis at this time
Cr improved from 2.7 on admission to 2.3 likely baseline
cont to monitor
# Chronic heart failure with reduced ejection fraction
Continue beta-blockers.� Entresto and Torsemide resumed as per cardio
BNP elevated likely d/t renal insufficiency as oppose to heart failure
ECHO appreciated EF 45-50% stage I diastolic dysfunction no significant valve abn's
Cardio eval appreciated home Entresto Torsemide Farxiga resumed 11/06
# Coronary artery disease with stents
Continue aspirin, statin, Coreg
# Recent admission at outside hospital for acute respiratory failure/aspiration pneumonia/Right pleural effusion-negative for malignancy
# Hypothyroidism-continue Synthroid
# Hypertension
Patient was hypotensive on admission better with IV fluids
Continue hydralazine but decrease dose to 25 twice daily
hydralazine prn
Continue Coreg increased to BID as per cardio
Monitor and titrate antihypertensive regimen as necessary.
# Anemia of Chronic Disease
#Possible anemia due to chronic renal insufficiency
#Acute blood loss anemia
Iron studies appreciated possible anemia of chronic disease
Acute on chronic anemia recent surgical procedure
transfuse for goal Hgb>8 given cardiac hx (received 1PRBC prior to surgery, post-procedure received 2PRBC for Hgb 6.6 with subsequent good response 8.9)
Hematology eval appreciated procrit given 11/06 outpt US Liver spleen recommended
#Hypocalcemia
monitor and replete as necessary
# Hyperlipidemia-continue atorvastatin
# Pulmonary nodules
# DVT prophylaxis-subcutaneous heparin
# Full code
PT/OT appreciated SNF vs Acute (PMR eval appreciated patient does not qualify for Acute, SNF recommended)
medically stable for discharge to SNF rehab pending placement
I spent a total of 45 minutes with the patient or on the floor. More than 50% of this time involved counseling and coordination of care.
Anticipated Discharge: Within 24 hours
Subjective/Interval History
-
Date of Service: November 08, 2023
No acute distress. Comfortable. Pain controlled.
Objective Data
-
Labs:
Laboratory Results
11/08/23
05:47
WBC 4.7 L
Hgb 8.6 L
Hct 25.2 L
Plt Count 171 D
Sodium 135
Potassium 4.7
Chloride 103
Carbon Dioxide 27
BUN 61 H
Creatinine 2.3 H
Glucose 121 H
Calcium 8.1 L
Vital Signs:
Vital Signs
Temp Pulse Resp BP Pulse Ox
98.6 F 83 16 155/79 94
11/07/23 22:04 11/07/23 22:04 11/07/23 22:04 11/07/23 22:04 11/07/23 22:04
I&O
11/07/23 11/08/23 11/09/23
05:59 06:59 06:59
Intake Total
Output Total
Balance
[2023-11-08 07:35] VITALS: BP 161/80
[2023-11-08] MEDS: ENTRESTO 49 MG/51 MG 1 TAB PO ×2 (08:24→20:13)
[2023-11-08] MEDS: LIPITOR 40 MG PO (08:24)
[2023-11-08] MEDS: DEMADEX 20 MG PO (08:25)
[2023-11-08] MEDS: COREG 12.5 MG PO ×2 (08:25→20:14)
[2023-11-08] MEDS: ASPIRIN 325 MG PO (08:25)
[2023-11-08] MEDS: THERAGRAN 1 TABLET PO (08:25)
[2023-11-08] MEDS: SYNTHROID 112 MCG PO (08:25)
[2023-11-08] MEDS: COLACE 100 MG PO ×2 (08:26→20:14)
[2023-11-08] MEDS: APRESOLINE 25 MG PO ×2 (08:26→20:13)
[2023-11-08] MEDS: NOVOLOG FLEXPEN-LOW RESISTANCE SC (08:30)
[2023-11-08 08:32] LABS: Glucose - Point of Care 107 mg/dl (70-99)
[2023-11-08] MEDS: LEVEMIR 0.0800000000000000017 UNITS SC (09:48)
[2023-11-08] MEDS: FARXIGA 10 MG PO (09:48)
[2023-11-08] MEDS: NOVOLOG FLEXPEN 6 UNITS SC ×2 (09:49→18:02)
[2023-11-08] MEDS: OSCAL CAL 500 500 MG PO (11:04)
[2023-11-08 12:16] LABS: Glucose - Point of Care 175 mg/dl (70-99)
[2023-11-08] MEDS: NOVOLOG FLEXPEN-LOW RESISTANCE 1 UNITS SC ×2 (12:25→18:02)
[2023-11-08 12:39] LABS: Haptoglobin 199 mg/dL (30-200)
--- NOTE | 2023-11-08 12:57 | W.PN.CARDCBS ---
Today's Communication / Plan
-
Meds resumed on 11/06 and renal function remained stable
Sign off
Follow-up with his outpatient poacher operator outside of our system after released from rehab
Impression / Plan
-
PCP:Dr. Florez
Outpatient poacher operator: Júnior [facility]
Impression:
Presented 11/01/2023 with mechanical fall
Right tib-fib fracture
JAMAR
Acute on chronic anemia
Coronary artery disease
s/p WILMAR of large first septal jewelry drilling machine operator branch
Heart failure with recovered cardiomyopathy
Ischemic cardiomyopathy, recovered on Echo 02/2023
Myocardial biopsy 06/05/2022 cardiomyocytes with occasional block shaped nuclei, [place] red special stain is negative
Recurrent pleural effusions follows with Dr. Arenas thoracic surgery
Hypertension
Hyperlipidemia
Hypothyroidism
Type 2 diabetes
Chronic anemia
Obstructive sleep apnea, uses 3 L of oxygen at night
History of Pleural effusion
history of pneumonia
Sinus bradycardia on high dose Coreg
Chronic anemia
Orthostatic hypotension
Echo 11/02/2023: EF 45 to 50%, mild concentric LVH, global hypokinesis, stage I diastolic dysfunction, no significant valvular disease, trivial pericardial effusion
Echo 03/27/2023: EF 65%, mild concentric LVH, stage I DD. No significant valvular disease
Echo 09/25/2022: EF 45%, grade 1 DD. Mildly dilated left atrium. Mild to moderate concentric LVH. Speckled appearance to myocardium consistent with infiltrative disorders such as amyloid.
Cardiac monitoring 03/20 - 03/26/2023: Sinus rhythm, range 63-108 bpm, average 78 bpm. PACs less than 1% burden.
Left heart cath May 2022: 80 to 90% stenosis in large first septal jewelry drilling machine operator branch status post PCI.
RHC May 2022: Mild to moderate PAP 58/20 mmHg. Normal PCWP and CO/CI
05/20/2022 equivocal PYP scan for cardiac amyloid. Light chain ratio was normal. No monoclonal spike.
06/19/2022 status post endomyocardial biopsy which was negative for cardiac amyloid
Plan:
He appears stable from cardiology viewpoint
Entresto, torsemide, farxiga were resumed on 11/06 and renal function has remained stable
Suspect dehydration on admission s/p IV fluids with improvement in creat, down to 2.3 on 11/08/23 which appears to be his baseline.
Anemia noted with hemoglobin 8.6 on 11/07. s/p 4 units PRBCs this admission. Heme/onc following. Workup ongoing
Follow-up with primary poacher operator at d/c.
Will sign off, call with questions
Patient is a 58 YOF with PMH significant for CAD s/p WILMAR of large first septal jewelry drilling machine operator branch, heart failure with recovered ejection fraction, cardiomyopathy recovered, hypertension, hyperlipidemia, hypothyroidism, recurrent pleural effusions,
orthostatic hypotension, diabetes, obstructive sleep apnea who utilizes oxygen at night who presents to emergency department 11/01/2023 after he sustained a mechanical fall getting out of his car. Patient reports he felt lightheaded and dizzy prior
to his fall but denies loss of consciousness. He was noted to be hypotensive on admission with blood pressure of 85/55. Hgb 8.6 JAMAR with creatinine of 2.7. He was provided IV hydration. Troponin negative and EKG shows sinus rhythm without
ischemia. He was noted to have right tib-fib fracture on x-ray. Orthopedics will be performing surgical fixation and cardiology being asked to see patient for preoperative clearance. At time of this evaluation patient denies chest pain, shortness
of breath, dizziness, lightheadedness, edema, orthopnea or PND. Patient is a rather poor historian. I was able to obtain records from his outpatient poacher operator which demonstrates he had a drug-eluting stent placed to large first septal jewelry drilling machine operator
branch in May 2022. He has been noted to have waxing and waning cardiomyopathy over the years. Most recent echocardiogram from February 2023 with improved ejection fraction of 65%. He also had abnormal speckling on echo and was worked up for
cardiac amyloid with endocardial biopsy which was negative. He also has a history of orthostatic hypotension was felt to be secondary to dehydration. His torsemide were reduced as outpatient. He has a history of bradycardia which improved with
reduction in carvedilol.
Progress Note - Tester Operator
Subjective
Date of Service: November 08, 2023
No chest pain or shortness of breath
Objective
Labs:
11/08/23 05:47
11/08/23 05:47
Labs
Hgb 8.6 g/dL (13.0-18.0) L 11/08/23 05:47
Hct 25.2 % (39.0-52.0) L 11/08/23 05:47
Plt Count 171 10^3/uL (130-400) D 11/08/23 05:47
PT 13.1 Sec (11.4-14.6) 11/01/23 13:57
INR 1.01 11/01/23 13:57
Sodium 135 mmol/L (135-145) 11/08/23 05:47
Potassium 4.7 mmol/L (3.5-5.1) 11/08/23 05:47
BUN 61 mg/dl (9-20) H 11/08/23 05:47
Creatinine 2.3 mg/dL (0.7-1.3) H 11/08/23 05:47
Glucose 121 mg/dl (70-99) H 11/08/23 05:47
Vital Signs and I&O:
Vital Signs
Temp Pulse Resp BP Pulse Ox
98.5 F 79 18 161/80 98
11/08/23 07:35 11/08/23 07:35 11/08/23 07:35 11/08/23 07:35 11/08/23 07:35
Vital Signs
Temp Pulse Resp BP Pulse Ox
98.5 F 79 18 161/80 98
11/08/23 07:35 11/08/23 07:35 11/08/23 07:35 11/08/23 07:35 11/08/23 07:35
Intake & Output
11/06/23 11/07/23 11/08/23 11/09/23
05:59 05:59 06:59 06:59
Intake Total 240 / 240
Output Total 1000 / 1000
Balance -760 / -760
Physical Exam
Physical Exam
General: Well developed, well nourished in NAD.
Neck: Supple, no JVD, HJR, carotids +2 B/L, no bruits bilaterally.
Heart: Non displaced PMI, RRR, no murmurs, No S3, S4, no rubs.
Lungs: Clear to auscultation bilaterally, no wheeze, rhonchi, rubs bilaterally,
normal expiratory phase.
Extremities: No clubbing, cyanosis or edema bilaterally.
Neuro: Grossly nonfocal, awake, alert and oriented x3.
[2023-11-08 13:33] VITALS: BP 181/85; PULSE 73; O2SAT 91
[2023-11-08 15:17] VITALS: BP 177/85
[2023-11-08] MEDS: APRESOLINE 5 MG IV ×2 (16:17→22:59)
[2023-11-08 17:39] LABS: Glucose - Point of Care 180 mg/dl (70-99)
[2023-11-08] MEDS: TYLENOL 650 MG PO (18:01)
[2023-11-08 21:41] LABS: Glucose - Point of Care 88 mg/dl (70-99)
[2023-11-08] MEDS: LEVEMIR SC (21:41)
[2023-11-08 22:55] VITALS: BP 156/85
[2023-11-08] MEDS: ROXICODONE 5 MG PO (23:01)
[2023-11-09 00:05] VITALS: BP 142/68
[2023-11-09 05:37] LABS: Hematocrit 25.5 % (39.0-52.0); Hemoglobin 8.8 g/dL (13.0-18.0); Mean Corp Hgb Conc. 34.5 g/dL (33.0-37.0); Mean Corpuscular Hgb 31.9 pg (27.0-31.0); Mean Corpuscular Volume 92.4 fL (80.0-94.0); Mean Platelet Volume 9.6 fL (7.4-10.4); Platelet Count 189 10^3/uL (130-400); Red Blood Cell Count 2.76 10^6/uL (4.70-6.10); Red Cell Dist. Width 13.3 % (11.5-14.5); White Blood Cell Count 5.3 10^3/uL (4.8-10.8)
[2023-11-09 06:02] LABS: Blood Urea Nitrogen 62 mg/dl (9-20); Carbon Dioxide 29 mmol/L (22-30); Chloride 102 mmol/L (98-107); Estimated Creatinine Clearance 33 ml/min; Glucose 172 mg/dl (70-99); Magnesium 2.3 mg/dl (1.6-2.3); Potassium 4.7 mmol/L (3.5-5.1); Sodium 134 mmol/L (135-145); eGFR 32.31
[2023-11-09 07:24] LABS: Glucose - Point of Care 198 mg/dl (70-99)
[2023-11-09 07:48] VITALS: BP 167/82
[2023-11-09] MEDS: TYLENOL 650 MG PO ×2 (08:43→21:22)
[2023-11-09] MEDS: FARXIGA 10 MG PO (08:44)
[2023-11-09] MEDS: THERAGRAN 1 TABLET PO (08:44)
[2023-11-09] MEDS: DEMADEX 20 MG PO (08:44)
[2023-11-09] MEDS: ENTRESTO 49 MG/51 MG 1 TAB PO ×2 (08:44→21:20)
[2023-11-09] MEDS: ASPIRIN 325 MG PO (08:44)
[2023-11-09] MEDS: LIPITOR 40 MG PO (08:44)
[2023-11-09] MEDS: APRESOLINE 25 MG PO ×2 (08:45→21:20)
[2023-11-09] MEDS: OSCAL CAL 500 500 MG PO (08:45)
[2023-11-09] MEDS: SYNTHROID 112 MCG PO (08:45)
[2023-11-09] MEDS: COREG 12.5 MG PO ×2 (08:45→21:18)
[2023-11-09] MEDS: COLACE 100 MG PO ×2 (08:45→21:18)
[2023-11-09] MEDS: LEVEMIR 0.0800000000000000017 UNITS SC ×2 (08:46→21:20)
[2023-11-09] MEDS: NOVOLOG FLEXPEN 6 UNITS SC ×3 (08:46→17:33)
[2023-11-09] MEDS: NOVOLOG FLEXPEN-LOW RESISTANCE 1 UNITS SC ×2 (08:47→17:33)
--- NOTE | 2023-11-09 09:11 | W.PN.HOSP.TC ---
Today's Communication/Plan
-
See bold
Assessment / Plan
Assessment / Plan
58M CAD stent HFmrEF DM HTN Hypothyroidism JESSENIA CPAP 3L at night presents following fall with comminuted fractures right lower extremity and JAMAR possible overdiuresis.
# Right tib-fib fracture
Cardio eval appreciated acceptable perioperative cardiac risk for surgery as above
Orthopedic eval appreciated s/p ORIF right tibial IM nail 11/02
-strict NWB to RLE w/ assistive device
-ASA 325 mg daily x4 weeks DVT ppx
-Splint in place 2wks until post-op visit repeat X-rays and skin clip removal
-Medically stable for discharge, follow-up with orthopedic surgery in the office in 2 weeks
#Severe constipation
No bowel movement for 7 days
Give magnesium citrate 300 mL x 1, start MiraLAX twice a day
# Type 2 diabetes- Brittle Diabetic
Diabetes LEGAL AID consult appreciated
Cont insulin adjustments as per diabetes LEGAL AID, hold as necessary for hypoglycemia
Farxiga on hold for now
Hold premeal insulin if patient does not intend to eat his meal
#Mild Hyperkalemia
monitor
# Acute kidney injury VS CKD
# Likely reason for dizziness is patient's acute kidney injury
Status post IV fluids
Cr improved from 2.7 on admission to 2.3 likely baseline
cont to monitor
# Chronic heart failure with reduced ejection fraction
Continue beta-blockers.� Entresto and Torsemide resumed as per cardio
BNP elevated likely d/t renal insufficiency as oppose to heart failure
ECHO appreciated EF 45-50% stage I diastolic dysfunction no significant valve abn's
Cardio eval appreciated home Entresto Torsemide Farxiga resumed 11/06
# Coronary artery disease with stents
Continue aspirin, statin, Coreg
# Recent admission at outside hospital for acute respiratory failure/aspiration pneumonia/Right pleural effusion-negative for malignancy
# Hypothyroidism-continue Synthroid
# Hypertension
Patient was hypotensive on admission better with IV fluids
Continue hydralazine but decrease dose to 25 twice daily
Continue Coreg, dose increased to BID as per cardio
Monitor and titrate antihypertensive regimen as necessary.
# Anemia of Chronic Disease
#Possible anemia due to chronic renal insufficiency
#Acute blood loss anemia
Iron studies appreciated possible anemia of chronic disease
Acute on chronic anemia recent surgical procedure
transfuse for goal Hgb>8 given cardiac hx (received 1PRBC prior to surgery, post-procedure received 2PRBC for Hgb 6.6 with subsequent good response 8.9)
Hematology eval appreciated procrit given 11/06 outpt US Liver spleen recommended
#Hypocalcemia
Start calcium supplements
# Hyperlipidemia
Continue atorvastatin
# Pulmonary nodules
Outpatient follow-up
DVT prophylaxis�Lovenox
Full code
PT/OT appreciated SNF vs Acute (PMR eval appreciated patient does not qualify for Acute, SNF recommended)
Total time spent to see the patient on the floor, examine the patient, review data and lab results, discuss treatment plan with patient, nursing staff around 51 minutes.
Physical Exam
General: No Apparent Distress and Comfortable
Respiratory: Clear
Cardiac: S1/S2 and Regular Rhythm
GI: Soft, Non Tender and Normal Bowel Sounds
Musculoskeletal: Right lower extremity splint in place
Neuro: Nonfocal/grossly intact
Anticipated Discharge: Within 24 hours
Subjective/Interval History
-
Date of Service: November 09, 2023
Patient reports that his left leg pain is tolerable, 2 out of 10 in intensity. He reports constipation, no bowel movement for 7 days. No chest pain, no shortness of breath. No nausea, no vomiting.
Objective Data
-
Labs:
Laboratory Results
11/09/23
04:52
WBC 5.3
Hgb 8.8 L
Hct 25.5 L
Plt Count 189
Sodium 134 L
Potassium 4.7
Chloride 102
Carbon Dioxide 29
BUN 62 H
Creatinine 2.3 H
Glucose 172 H
Calcium 8.0 L
Vital Signs:
Vital Signs
Temp Pulse Resp BP Pulse Ox
98.1 F 83 17 167/82 91
11/09/23 07:48 11/09/23 07:48 11/09/23 07:48 11/09/23 07:48 11/09/23 07:48
I&O
11/08/23 11/09/23 11/10/23
06:59 06:59 06:59
Intake Total 720 / 720
Output Total 2200 / 2200
Balance -1480 / -1480
[2023-11-09 09:40] LABS: Vitamin D, 25-OH*** 24.4 ng/mL (30-80)
[2023-11-09] MEDS: CITROMA 300 ML PO (10:19)
--- NOTE | 2023-11-09 10:27 | PN.DE.MGMTRT ---
Insulin Management
- -
11/09/2023 Diabetes Management F/U:
58 year old male admitted 3/ s/p fall with tib-fib fx, now POD #6 s/p ORIF right tibial IM nail 11/02
Prior to admission was taking Farxiga 10 mg daily Levemir 8 units BID and Humalog 10 to 12 units AC.
Pt seen this AM, sitting up in chair, flat affect, dose not engage during interview, gives 1 word responses.
Of note, he was recently admitted to outside hosp s/p fall likely attributed to hypoglycemic episode.
He is noted for recurrent episodes of hypoglycemia prompting frequent adjustments to his insulin doses.
His glucose has remained stable w/o hypoglycemia throughout the weekend.
Will make no changes to current regimen: Levemir to 8 units BID, NovoLog 6 units AC.
Cr remains elevated, 2.3, eGFR 32.31. Will not restart Farxiga 10 mg daily at this time.
Diabetes History
- -
Type of Diabetes: 2 requiring insulin
Pre-Admission Diabetes Regimen
11/09/23
04:52
Creatinine 2.3 H
Lab Results
Hemoglobin A1c 7.9 % (4.0-5.6) H 11/02/23 06:58
Insulin Pump Settings
IP Diabetes Regimen
11/08/23 11/08/23 11/08/23
12:14 17:37 21:35
Glucose
POC Glucose 175 H 180 H 88
11/09/23 11/09/23
04:52 07:23
Glucose 172 H
POC Glucose 198 H
Patient Education
[2023-11-09] MEDS: MIRALAX 17 GRAMS PO ×2 (11:38→21:17)
[2023-11-09 12:10] LABS: Glucose - Point of Care 246 mg/dl (70-99)
[2023-11-09] MEDS: NOVOLOG FLEXPEN-LOW RESISTANCE 2 UNITS SC (12:46)
[2023-11-09 15:01] VITALS: BP 150/74
[2023-11-09 15:02] VITALS: BMI 23.1
--- NOTE | 2023-11-09 15:12 | CM ---
Reviewed the chart notes and spoke with the patient at the bedside. Patient provided auto insurance information. Information provided to [facility] and Tatiana Camacho through [facility].
[employer]
Martina Carpenter

Claim # [id number]
[2023-11-09 16:28] LABS: Glucose - Point of Care 197 mg/dl (70-99)
[2023-11-09] MEDS: APRESOLINE 5 MG IV ×2 (18:22→23:28)
[2023-11-09 21:28] LABS: Glucose - Point of Care 164 mg/dl (70-99)
[2023-11-10 05:12] LABS: Hematocrit 26.1 % (39.0-52.0); Hemoglobin 8.8 g/dL (13.0-18.0); Mean Corp Hgb Conc. 33.7 g/dL (33.0-37.0); Mean Corpuscular Hgb 30.9 pg (27.0-31.0); Mean Corpuscular Volume 91.6 fL (80.0-94.0); Mean Platelet Volume 9.3 fL (7.4-10.4); Platelet Count 213 10^3/uL (130-400); Red Blood Cell Count 2.85 10^6/uL (4.70-6.10); Red Cell Dist. Width 13.2 % (11.5-14.5); White Blood Cell Count 5.5 10^3/uL (4.8-10.8)
[2023-11-10 05:38] LABS: Blood Urea Nitrogen 65 mg/dl (9-20); Calcium 8.3 mg/dl (8.4-10.2); Carbon Dioxide 31 mmol/L (22-30); Chloride 102 mmol/L (98-107); Estimated Creatinine Clearance 36 ml/min; Glucose 173 mg/dl (70-99); Magnesium 2.9 mg/dl (1.6-2.3); Potassium 5.9 mmol/L (3.5-5.1); Sodium 134 mmol/L (135-145); eGFR 36.04
[2023-11-10] MEDS: APRESOLINE 5 MG IV ×2 (05:57→14:48)
[2023-11-10 06:00] VITALS: BMI 23.4
[2023-11-10 07:15] LABS: Glucose - Point of Care 188 mg/dl (70-99)
[2023-11-10 07:47] VITALS: BP 149/74
--- NOTE | 2023-11-10 07:55 | W.PN.HOSP.TC ---
Today's Communication/Plan
-
Discharge to rehab when bed available
Assessment / Plan
Assessment / Plan
58M CAD stent HFmrEF DM HTN Hypothyroidism JESSENIA CPAP 3L at night presents following fall with comminuted fractures right lower extremity and JAMAR possible overdiuresis.
# Right tib-fib fracture
Cardio eval appreciated acceptable perioperative cardiac risk for surgery as above
Appreciate orthopedic surgery input, s/p ORIF right tibial IM nail 11/02
-strict NWB to RLE w/ assistive device
-ASA 325 mg daily x4 weeks DVT ppx
-Splint in place 2wks until post-op visit repeat X-rays and skin clip removal
-Medically stable for discharge, follow-up with orthopedic surgery in the office in 2 weeks
#Severe constipation
No bowel movement for 7 days
Resolved, continue aggressive bowel regimen
#Hyperkalemia
From constipation
Patient had bowel movement, recheck K level urgently
# Type 2 diabetes- Brittle Diabetic
Diabetes GLOBAL CATEGORY MANAGER consult appreciated
Cont insulin adjustments as per diabetes GLOBAL CATEGORY MANAGER, hold as necessary for hypoglycemia
Farxiga on hold for now
Hold premeal insulin if patient does not intend to eat his meal
#Mild Hyperkalemia
monitor
# Acute kidney injury VS CKD
# Likely reason for dizziness is patient's acute kidney injury
Status post IV fluids
Cr improved from 2.7 on admission to 2.1 likely baseline
cont to monitor
# Chronic heart failure with reduced ejection fraction
Continue beta-blockers.� Entresto and Torsemide resumed as per cardio
BNP elevated likely d/t renal insufficiency as oppose to heart failure
ECHO appreciated EF 45-50% stage I diastolic dysfunction no significant valve abn's
Cardio eval appreciated home Entresto Torsemide Farxiga resumed 11/06
# Coronary artery disease with stents
Continue aspirin, statin, Coreg
# Recent admission at outside hospital for acute respiratory failure/aspiration pneumonia/Right pleural effusion-negative for malignancy
# Hypothyroidism-continue Synthroid
# Hypertension
Patient was hypotensive on admission better with IV fluids
Continue hydralazine but decrease dose to 25 twice daily
Continue Coreg, dose increased to BID as per cardio
Monitor and titrate antihypertensive regimen as necessary.
# Anemia of Chronic Disease
#Possible anemia due to chronic renal insufficiency
#Acute blood loss anemia
Iron studies appreciated possible anemia of chronic disease
Acute on chronic anemia recent surgical procedure
transfuse for goal Hgb>8 given cardiac hx (received 1PRBC prior to surgery, post-procedure received 2PRBC for Hgb 6.6 with subsequent good response 8.9)
Hematology eval appreciated procrit given 11/06 outpt US Liver spleen recommended
#Hypocalcemia
Start calcium supplements
# Hyperlipidemia
Continue atorvastatin
# Pulmonary nodules
Outpatient follow-up
DVT prophylaxis�Lovenox
Full code
PT/OT appreciated SNF vs Acute (PMR eval appreciated patient does not qualify for Acute, SNF recommended)
Total time spent to see the patient on the floor, examine the patient, review data and lab results, discuss treatment plan with patient, nursing staff around 52 minutes.
Physical Exam
General: No Apparent Distress and Comfortable
Respiratory: Clear
Cardiac: S1/S2 and Regular Rhythm
GI: Soft, Non Tender and Normal Bowel Sounds
Musculoskeletal: Right lower extremity splint in place
Neuro: Nonfocal/grossly intact
Anticipated Discharge: Within 24 hours
Subjective/Interval History
-
Date of Service: November 10, 2023
Patient is currently having a bowel movement. No chest pain, no shortness of breath. No fever. His leg pain is tolerable.
Objective Data
-
Labs:
Laboratory Results
11/10/23
04:31
WBC 5.5
Hgb 8.8 L
Hct 26.1 L
Plt Count 213
Sodium 134 L
Potassium 5.9 H D
Chloride 102
Carbon Dioxide 31 H
BUN 65 H
Creatinine 2.1 H
Glucose 173 H
Calcium 8.3 L
Vital Signs:
Vital Signs
Temp Pulse Resp BP Pulse Ox
98.2 F 76 16 149/74 91
11/10/23 07:47 11/10/23 07:47 11/10/23 07:47 11/10/23 07:47 11/10/23 07:47
I&O
11/09/23 11/10/23 11/11/23
06:59 06:59 06:59
Intake Total 720 / 720 540 / 540
Output Total 2200 / 2200 1050 / 1050
Balance -1480 / -1480 -510 / -510
--- NOTE | 2023-11-10 08:08 | PN.DE.MGMTRT ---
Insulin Management
- -
11/10/2023 Diabetes Management F/U:
58 year old male admitted 3/ s/p fall with tib-fib fx, now POD #7 s/p ORIF right tibial IM nail on 11/02
Prior to admission was taking Farxiga 10 mg daily Levemir 8 units BID and Humalog 10 to 12 units AC.
Pt seen this AM, sitting up in bed. He is pleasant and more engaging today.
Premeal glucose remains stable w/o hypoglycemia, though not in range, 188 to 246 and FBG 173 this AM
Will increase Levemir to 10 units BID, NovoLog to 7 units AC.
Cr remains elevated, 2.1, eGFR 36.04. Will not restart Farxiga 10 mg daily at this time.
Pt is for d/c to rehab. Post discharge diabetes care and management d/w pt with emphasis to STOP Farxiga now and at discharge
Diabetes History
- -
Type of Diabetes: 2 requiring insulin
Pre-Admission Diabetes Regimen
11/10/23
04:31
Creatinine 2.1 H
Lab Results
Hemoglobin A1c 7.9 % (4.0-5.6) H 11/02/23 06:58
Insulin Pump Settings
IP Diabetes Regimen
11/09/23 11/09/23 11/09/23
12:09 16:26 21:17
Glucose
POC Glucose 246 H 197 H 164 H
11/10/23 11/10/23
04:31 07:14
Glucose 173 H
POC Glucose 188 H
Meal type: Lunch
Amount consumed: 100%
Patient Education
[2023-11-10] MEDS: ASPIRIN 325 MG PO (08:44)
[2023-11-10] MEDS: LIPITOR 40 MG PO (08:44)
[2023-11-10] MEDS: FARXIGA 10 MG PO (08:44)
[2023-11-10] MEDS: COREG 12.5 MG PO ×2 (08:44→19:30)
[2023-11-10] MEDS: OSCAL CAL 500 500 MG PO (08:45)
[2023-11-10] MEDS: APRESOLINE 25 MG PO ×2 (08:45→19:30)
[2023-11-10] MEDS: ENTRESTO 49 MG/51 MG 1 TAB PO ×2 (08:45→19:30)
[2023-11-10] MEDS: THERAGRAN 1 TABLET PO (08:45)
[2023-11-10] MEDS: DEMADEX 20 MG PO (08:45)
[2023-11-10] MEDS: COLACE 100 MG PO ×2 (08:45→19:30)
[2023-11-10] MEDS: SYNTHROID 112 MCG PO (08:47)
[2023-11-10] MEDS: MIRALAX PO (08:50)
[2023-11-10] MEDS: LEVEMIR 0.0800000000000000017 UNITS SC (09:28)
[2023-11-10] MEDS: NOVOLOG FLEXPEN 6 UNITS SC (09:28)
[2023-11-10] MEDS: NOVOLOG FLEXPEN-LOW RESISTANCE 1 UNITS SC (09:28)
--- NOTE | 2023-11-10 11:03 | W.PN.ONC ---
Today's Communication / Plan
-
11/02 s/p ORIF w/ Dr. Evans, EBL 20
11/09 Hgb 8.8 (stable)
s/p 4units PRBCs
s/p Procrit 10,000u (11/06/23)
Monitor CBC w/ diff daily
EPO level: 15, Retic low, LDH/haptoglobin WNL
Assess for monoclonal proteins and K/L ratio - studies remain pending
Outpatient ultrasound of the liver and spleen
Consider outpatient evaluation for PNH should anemia persists particularly if reticulocyte count suggest nonimmune hemolysis
Bowel regimen
We will follow.
Impression
Impression
Multifactorial acute anemia
Chronic kidney disease
Blood loss s/p ORIF (11/03/23)
Congestive heart failure
Diabetes mellitus
Hypertension
Hyperlipidemia
Thrombocytopenia (resolved)
Constipation
Hx CAD
Subjective/Objective
Subjective/Objective
constipation
Vital Signs:
Vital Signs
Temp Pulse Resp BP Pulse Ox
98.2 F 76 16 149/74 91
11/10/23 07:47 11/10/23 08:44 11/10/23 07:47 11/10/23 08:44 11/10/23 07:47
physical exam unchanged
Lab Results:
Laboratory Data
WBC 5.5 10^3/uL (4.8-10.8) 11/10/23 04:31
Hgb 8.8 g/dL (13.0-18.0) L 11/10/23 04:31
Plt Count 213 10^3/uL (130-400) 11/10/23 04:31
PT 13.1 Sec (11.4-14.6) 11/01/23 13:57
INR 1.01 11/01/23 13:57
eGFR 36.04 11/10/23 04:31
[2023-11-10 11:06] LABS: Glucose - Point of Care 252 mg/dl (70-99)
[2023-11-10] MEDS: NOVOLOG FLEXPEN 7 UNITS SC ×2 (12:37→17:51)
[2023-11-10] MEDS: NOVOLOG FLEXPEN-LOW RESISTANCE 3 UNITS SC (12:37)
[2023-11-10 13:23] LABS: Potassium 5.1 mmol/L (3.5-5.1)
[2023-11-10 15:14] VITALS: BP 170/81
--- NOTE | 2023-11-10 15:23 | CM ---
Reviewed chart notes. [facility] checking insurance to see if able to accept. CM continues to be available to patient/family and is monitoring medical plan for needs at discharge.
Plan: Discharge to SNF rehab once bed found.
[2023-11-10 15:52] VITALS: BP 142/70
[2023-11-10 16:08] LABS: Glucose - Point of Care 127 mg/dl (70-99)
[2023-11-10] MEDS: NOVOLOG FLEXPEN-LOW RESISTANCE SC (16:13)
[2023-11-10] MEDS: OSCAL 500 + D 500 MG PO ×2 (16:48→19:30)
[2023-11-10 16:55] VITALS: BP 149/73; PULSE 61; O2SAT 95
[2023-11-10] MEDS: MIRALAX 17 GRAMS PO (19:30)
[2023-11-10 20:27] VITALS: BP 131/64
[2023-11-10] MEDS: LEVEMIR 0.100000000000000006 UNITS SC (21:19)
[2023-11-10 21:26] LABS: Glucose - Point of Care 143 mg/dl (70-99)
[2023-11-10] MEDS: TYLENOL 650 MG PO (21:33)
[2023-11-10 23:30] VITALS: BP 150/76
[2023-11-11 05:35] VITALS: BP 138/74
[2023-11-11 06:00] VITALS: BMI 22.7
[2023-11-11] MEDS: SYNTHROID 112 MCG PO (06:34)
[2023-11-11 06:49] LABS: Hematocrit 26.3 % (39.0-52.0); Hemoglobin 8.8 g/dL (13.0-18.0); Mean Corp Hgb Conc. 33.5 g/dL (33.0-37.0); Mean Corpuscular Hgb 31.2 pg (27.0-31.0); Mean Corpuscular Volume 93.3 fL (80.0-94.0); Mean Platelet Volume 9.5 fL (7.4-10.4); Platelet Count 240 10^3/uL (130-400); Red Blood Cell Count 2.82 10^6/uL (4.70-6.10); Red Cell Dist. Width 13.4 % (11.5-14.5); White Blood Cell Count 4.9 10^3/uL (4.8-10.8)
[2023-11-11 07:22] LABS: Blood Urea Nitrogen 64 mg/dl (9-20); Calcium 8.7 mg/dl (8.4-10.2); Carbon Dioxide 32 mmol/L (22-30); Chloride 98 mmol/L (98-107); Estimated Creatinine Clearance 33 ml/min; Glucose 104 mg/dl (70-99); Potassium 5.8 mmol/L (3.5-5.1); Sodium 135 mmol/L (135-145); eGFR 32.31
[2023-11-11 07:30] VITALS: BP 164/82
[2023-11-11 07:45] LABS: Glucose - Point of Care 89 mg/dl (70-99)
[2023-11-11] MEDS: NOVOLOG FLEXPEN-LOW RESISTANCE SC ×2 (08:47→17:16)
[2023-11-11] MEDS: NOVOLOG FLEXPEN 7 UNITS SC ×2 (08:47→13:42)
[2023-11-11] MEDS: COLACE 100 MG PO (08:48)
[2023-11-11] MEDS: THERAGRAN 1 TABLET PO (08:48)
[2023-11-11] MEDS: ENTRESTO 49 MG/51 MG 1 TAB PO (08:49)
[2023-11-11] MEDS: FARXIGA 10 MG PO (08:49)
[2023-11-11] MEDS: OSCAL 500 + D 500 MG PO ×3 (08:49→21:44)
[2023-11-11] MEDS: ASPIRIN 325 MG PO (08:49)
[2023-11-11] MEDS: LIPITOR 40 MG PO (08:49)
[2023-11-11] MEDS: COREG 12.5 MG PO ×2 (08:50→21:45)
[2023-11-11] MEDS: APRESOLINE 25 MG PO ×2 (08:50→21:45)
[2023-11-11] MEDS: DEMADEX 20 MG PO (08:51)
[2023-11-11] MEDS: MIRALAX 17 GRAMS PO ×2 (08:51→21:43)
[2023-11-11] MEDS: LEVEMIR 0.100000000000000006 UNITS SC ×2 (08:56→21:45)
--- NOTE | 2023-11-11 09:05 | W.PN.HOSP.TC ---
Addendum entered and electronically signed by Richard Burnham MD 11/11/23 14:31:
Hold Entresto secondary to hyperkalemia.
Original Note:
Today's Communication/Plan
-
Discharge to rehab when bed available
Assessment / Plan
Assessment / Plan
58M CAD stent HFmrEF DM HTN Hypothyroidism JESSENIA CPAP 3L at night presents following fall with comminuted fractures right lower extremity and JAMAR possible overdiuresis.
# Right tib-fib fracture
Cardio eval appreciated acceptable perioperative cardiac risk for surgery as above
Appreciate orthopedic surgery input, s/p ORIF right tibial IM nail 11/02
-strict NWB to RLE w/ assistive device
-ASA 325 mg daily x4 weeks DVT ppx
-Splint in place 2wks until post-op visit repeat X-rays and skin clip removal
-Medically stable for discharge, follow-up with orthopedic surgery in the office in 2 weeks
#Severe constipation
No bowel movement for 7 days
Resolved, continue aggressive bowel regimen
#Hyperkalemia
From constipation
Resolved, continue laxatives
# Type 2 diabetes- Brittle Diabetic
Diabetes ROLL PLUGGER MACHINE OPERATOR consult appreciated
Cont insulin adjustments as per diabetes ROLL PLUGGER MACHINE OPERATOR, hold as necessary for hypoglycemia
Farxiga on hold for now
Hold premeal insulin if patient does not intend to eat his meal
#Mild Hyperkalemia
monitor
# Acute kidney injury VS CKD
# Likely reason for dizziness is patient's acute kidney injury
Status post IV fluids
Cr improved from 2.7 on admission to 2.3 likely baseline
cont to monitor
# Chronic heart failure with reduced ejection fraction
Continue beta-blockers.� Entresto and Torsemide resumed as per cardio
BNP elevated likely d/t renal insufficiency as oppose to heart failure
ECHO appreciated EF 45-50% stage I diastolic dysfunction no significant valve abn's
Cardio eval appreciated home Entresto Torsemide Farxiga resumed 11/06
# Coronary artery disease with stents
Continue aspirin, statin, Coreg
# Recent admission at outside hospital for acute respiratory failure/aspiration pneumonia/Right pleural effusion-negative for malignancy
# Hypothyroidism-continue Synthroid
# Hypertension
Patient was hypotensive on admission better with IV fluids
Continue hydralazine but decrease dose to 25 twice daily
Continue Coreg, dose increased to BID as per cardio
Monitor and titrate antihypertensive regimen as necessary.
# Anemia of Chronic Disease
#Possible anemia due to chronic renal insufficiency
#Acute blood loss anemia
Iron studies appreciated possible anemia of chronic disease
Acute on chronic anemia recent surgical procedure
transfuse for goal Hgb>8 given cardiac hx (received 1PRBC prior to surgery, post-procedure received 2PRBC for Hgb 6.6 with subsequent good response 8.9)
Hematology eval appreciated procrit given 11/06 outpt US Liver spleen recommended
Hemoglobin stable at 8.8
#Hypocalcemia
Started calcium supplements
# Hyperlipidemia
Continue atorvastatin
# Pulmonary nodules
Outpatient follow-up
DVT prophylaxis�Lovenox
Full code
PT/OT appreciated SNF vs Acute (PMR eval appreciated patient does not qualify for Acute, SNF recommended)
Physical Exam
General: No Apparent Distress and Comfortable
Respiratory: Clear
Cardiac: S1/S2 and Regular Rhythm
GI: Soft, Non Tender and Normal Bowel Sounds
Musculoskeletal: Right lower extremity splint in place
Neuro: Nonfocal/grossly intact
Anticipated Discharge: Within 24 hours
Subjective/Interval History
-
Date of Service: November 11, 2023
Patient reports that his leg pain is controlled. No chest pain, no shortness of breath. No fever.
Objective Data
-
Labs:
Laboratory Results
11/11/23
05:35
WBC 4.9
Hgb 8.8 L
Hct 26.3 L
Plt Count 240
Sodium 135
Potassium 5.8 H
Chloride 98
Carbon Dioxide 32 H
BUN 64 H
Creatinine 2.3 H
Glucose 104 H
Calcium 8.7
Vital Signs:
Vital Signs
Temp Pulse Resp BP Pulse Ox
98.3 F 72 17 164/82 96
11/11/23 07:30 11/11/23 08:51 11/11/23 07:30 11/11/23 08:51 11/11/23 07:30
I&O
11/10/23 11/11/23 11/12/23
06:59 06:59 06:59
Intake Total 540 / 540 960 / 960
Output Total 1050 / 1050 1900 / 1900
Balance -510 / -510 -940 / -940
[2023-11-11] MEDS: LOKELMA 10 GRAM PO ×2 (09:44→13:40)
[2023-11-11] MEDS: DUPHALAC/CHRONULAC 20 GRAMS PO ×2 (09:44→21:44)
--- NOTE | 2023-11-11 09:50 | PN.DE.MGMTRT ---
Insulin Management
- -
11/11/2023 Diabetes Management Follow up
58 year old male admitted 3 s/p fall with tib-fib fx, now POD #8 s/p ORIF right tibial IM nail on 11/02
Prior to admission was taking Farxiga 10 mg daily Levemir 8 units BID and Humalog 10 to 12 units AC.
Patient is alert and oriented, able to participate in discussion regarding his insulin doses. He agrees with changes.
Levemir dose was increased at hs last evening to 10 units, fasting glucose this AM 89, will make no change to HS levemir. Will receive first dose of 10 units levemir this AM. AC novolog current dose 7 units, required corrective insulin with lunch
as AM novolog dose was 6. Will make no change to current regimen.
Diabetes History
- -
Type of Diabetes: 2 requiring insulin
Pre-Admission Diabetes Regimen
11/11/23
05:35
Creatinine 2.3 H
Lab Results
Hemoglobin A1c 7.9 % (4.0-5.6) H 11/02/23 06:58
Insulin Pump Settings
IP Diabetes Regimen
11/10/23 11/10/23 11/10/23
11:05 16:06 21:19
Glucose
POC Glucose 252 H 127 H 143 H
11/11/23 11/11/23
05:35 07:37
Glucose 104 H
POC Glucose 89
Meal type: Lunch
Meal type: Breakfast
Amount consumed: 100%
Amount consumed: 100%
Patient Education
[2023-11-11 11:43] LABS: Glucose - Point of Care 227 mg/dl (70-99)
--- NOTE | 2023-11-11 12:13 | CM ---
Reviewed the chart notes and spoke with Christine [facility] Admissions Liaison. The company is still checking to see who will be the payer and how to collect from the medical insurance if auto insurance has no funds. CM continues to be available
to patient/family and is monitoring medical plan for needs at discharge.
Plan: Discharge to [facility] once insurance issues have been worked out.
[2023-11-11 13:09] LABS: Potassium 5.1 mmol/L (3.5-5.1)
[2023-11-11] MEDS: NOVOLOG FLEXPEN-LOW RESISTANCE 2 UNITS SC (13:41)
[2023-11-11] MEDS: APRESOLINE 5 MG IV ×2 (14:35→23:29)
--- NOTE | 2023-11-11 14:53 | W.PN.ONC ---
Today's Communication / Plan
-
Anemia is stable, likely related to CKD
SPEP/MADELINE pending, though doubt myeloma
Will benefit from outpatient heme f/u for BUD shots, rec. he establish care w/ hematology closer to home as he does not live locally.
d/c planning to rehab
Impression
Impression
Multifactorial acute anemia
Chronic kidney disease
Blood loss s/p ORIF (11/03/23)
Congestive heart failure
Diabetes mellitus
Hypertension
Hyperlipidemia
Thrombocytopenia (resolved)
Constipation
Hx CAD
Plan
Plan
Anemia is stable, likely related to CKD
SPEP/MADELINE pending, though doubt myeloma
Will benefit from outpatient heme f/u for BUD shots, rec. he establish care w/ hematology closer to home as he does not live locally.
d/c planning to rehab
Subjective/Objective
Subjective/Objective
no new complaints, eager to get to rehab
Vital Signs:
Vital Signs
Temp Pulse Resp BP Pulse Ox
98.3 F 70 17 159/79 96
11/11/23 07:30 11/11/23 14:35 11/11/23 07:30 11/11/23 14:35 11/11/23 07:30
Lab Results:
Laboratory Data
WBC 4.9 10^3/uL (4.8-10.8) 11/11/23 05:35
Hgb 8.8 g/dL (13.0-18.0) L 11/11/23 05:35
Plt Count 240 10^3/uL (130-400) 11/11/23 05:35
PT 13.1 Sec (11.4-14.6) 11/01/23 13:57
INR 1.01 11/01/23 13:57
eGFR 32.31 11/11/23 05:35
[2023-11-11 15:15] VITALS: BP 141/74; BP 159/79; PULSE 70
[2023-11-11] MEDS: SENOKOT-S 2 TABLET PO ×2 (15:24→21:43)
[2023-11-11 15:46] VITALS: BP 159/79; O2SAT 100
[2023-11-11 16:07] VITALS: BP 123/63
[2023-11-11 17:08] LABS: Glucose - Point of Care 51 mg/dl (70-99)
[2023-11-11] MEDS: NOVOLOG FLEXPEN SC (17:16)
[2023-11-11] MEDS: LOVENOX 40 MG SC (17:17)
[2023-11-11 17:30] LABS: Glucose - Point of Care 66 mg/dl (70-99)
--- NOTE | 2023-11-11 17:41 | PTCARENOTE ---
Patient hypoglycemic with BG 51. Treated per protocol with orange juice. Verbalized understanding. Upon 15 minute reassessment, BG 66. Patient found to not have finished orange juice as directed. Reiterated to patient importance of finishing orange
juice.
[2023-11-11 18:00] LABS: Glucose - Point of Care 93 mg/dl (70-99)
[2023-11-11] MEDS: NOVOLOG FLEXPEN 3 UNITS SC (18:05)
[2023-11-11 21:40] LABS: Glucose - Point of Care 298 mg/dl (70-99)
[2023-11-11 23:17] VITALS: BP 166/93
[2023-11-12 03:14] VITALS: BP 148/82
[2023-11-12 05:46] LABS: Mean Corp Hgb Conc. 33.3 g/dL (33.0-37.0); Mean Corpuscular Hgb 31.4 pg (27.0-31.0); Mean Corpuscular Volume 94.1 fL (80.0-94.0); Mean Platelet Volume 9.3 fL (7.4-10.4); Platelet Count 240 10^3/uL (130-400); Red Blood Cell Count 2.87 10^6/uL (4.70-6.10); Red Cell Dist. Width 13.5 % (11.5-14.5); White Blood Cell Count 5.4 10^3/uL (4.8-10.8)
[2023-11-12 06:00] VITALS: BMI 22.6
[2023-11-12 06:09] LABS: Blood Urea Nitrogen 57 mg/dl (9-20); Calcium 8.7 mg/dl (8.4-10.2); Carbon Dioxide 33 mmol/L (22-30); Chloride 99 mmol/L (98-107); Estimated Creatinine Clearance 33 ml/min; Glucose 159 mg/dl (70-99); Potassium 5.6 mmol/L (3.5-5.1); Sodium 133 mmol/L (135-145); eGFR 32.31
[2023-11-12 07:27] LABS: Glucose - Point of Care 110 mg/dl (70-99)
[2023-11-12 08:01] VITALS: BP 162/80
[2023-11-12] MEDS: NOVOLOG FLEXPEN-LOW RESISTANCE SC ×2 (08:33→17:12)
[2023-11-12] MEDS: OSCAL 500 + D 500 MG PO ×3 (08:33→22:09)
[2023-11-12] MEDS: COREG 12.5 MG PO ×2 (08:34→20:14)
[2023-11-12] MEDS: DUPHALAC/CHRONULAC 20 GRAMS PO ×2 (08:34→20:14)
[2023-11-12] MEDS: LIPITOR 40 MG PO (08:34)
[2023-11-12] MEDS: FARXIGA 10 MG PO (08:34)
[2023-11-12] MEDS: DEMADEX 20 MG PO (08:34)
[2023-11-12] MEDS: THERAGRAN 1 TABLET PO (08:34)
[2023-11-12] MEDS: APRESOLINE 25 MG PO ×2 (08:34→20:14)
[2023-11-12] MEDS: MIRALAX 17 GRAMS PO (08:35)
[2023-11-12] MEDS: SENOKOT-S 2 TABLET PO (08:35)
[2023-11-12] MEDS: SYNTHROID 112 MCG PO (08:36)
[2023-11-12] MEDS: LEVEMIR 0.100000000000000006 UNITS SC ×2 (08:40→22:09)
--- NOTE | 2023-11-12 08:42 | W.PN.HOSP.TC ---
Addendum entered and electronically signed by Richard Burnham MD 11/12/23 13:38:
#Mild Hyponatremia
monitor
Original Note:
Today's Communication/Plan
-
see bold
Assessment / Plan
Assessment / Plan
58M CAD stent HFmrEF DM HTN Hypothyroidism JESSENIA CPAP 3L at night presents following fall with comminuted fractures right lower extremity and JAMAR possible overdiuresis.
# Right tib-fib fracture
Cardio eval appreciated acceptable perioperative cardiac risk for surgery as above
Appreciate orthopedic surgery input, s/p ORIF right tibial IM nail 11/02
-strict NWB to RLE w/ assistive device
-ASA 325 mg daily x4 weeks DVT ppx
-Splint in place 2wks until post-op visit repeat X-rays and skin clip removal
-Medically stable for discharge, follow-up with orthopedic surgery in the office in 2 weeks
#Severe constipation
No bowel movement for 7 days
Resolved, continue aggressive bowel regimen
#Hyperkalemia
From constipation
Continue laxatives, Lokelma, low potassium diet
Continue holding Entresto, trend potassium
# Type 2 diabetes- Brittle Diabetic
Diabetes HAND FILER BALANCE WHEEL consult appreciated
Cont insulin adjustments as per diabetes HAND FILER BALANCE WHEEL, hold as necessary for hypoglycemia
Farxiga on hold for now
Hold premeal insulin if patient does not intend to eat his meal
#Mild Hyperkalemia
monitor
# Acute kidney injury VS CKD
# Likely reason for dizziness is patient's acute kidney injury
Status post IV fluids
Cr improved from 2.7 on admission to 2.3 likely baseline
cont to monitor
# Chronic heart failure with reduced ejection fraction
Continue beta-blockers.� Entresto and Torsemide resumed as per cardio
BNP elevated likely d/t renal insufficiency as oppose to heart failure
ECHO appreciated EF 45-50% stage I diastolic dysfunction no significant valve abn's
Cardio eval appreciated home Torsemide Farxiga resumed 11/06
Hold Entresto secondary to hyperkalemia
# Coronary artery disease with stents
Continue aspirin, statin, Coreg
# Recent admission at outside hospital for acute respiratory failure/aspiration pneumonia/Right pleural effusion-negative for malignancy
# Hypothyroidism-continue Synthroid
# Hypertension
Patient was hypotensive on admission better with IV fluids
Continue hydralazine but decrease dose to 25 twice daily
Continue Coreg, dose increased to BID as per cardio
Monitor and titrate antihypertensive regimen as necessary.
# Anemia of Chronic Disease
#Possible anemia due to chronic renal insufficiency
#Acute blood loss anemia
Iron studies appreciated possible anemia of chronic disease
Acute on chronic anemia recent surgical procedure
transfuse for goal Hgb>8 given cardiac hx (received 1PRBC prior to surgery, post-procedure received 2PRBC for Hgb 6.6 with subsequent good response 8.9)
Hematology eval appreciated procrit given 11/06 outpt US Liver spleen recommended
Hemoglobin stable at 9.0
#Hypocalcemia
Started calcium supplements
# Hyperlipidemia
Continue atorvastatin
# Pulmonary nodules
Outpatient follow-up
DVT prophylaxis�Lovenox
Full code
PT/OT appreciated SNF vs Acute (PMR eval appreciated patient does not qualify for Acute, SNF recommended)
Physical Exam
General: No Apparent Distress and Comfortable
Respiratory: Clear
Cardiac: S1/S2 and Regular Rhythm
GI: Soft, Non Tender and Normal Bowel Sounds
Musculoskeletal: Right lower extremity splint in place
Neuro: Nonfocal/grossly intact
Anticipated Discharge: Within 24 hours
Subjective/Interval History
-
Date of Service: November 12, 2023
Patient having multiple bowel movements. Denies chest pain, shortness of breath. Leg pain is controlled.
Objective Data
-
Labs:
Laboratory Results
11/12/23
04:57
WBC 5.4
Hgb 9.0 L
Hct 27.0 L
Plt Count 240
Sodium 133 L
Potassium 5.6 H
Chloride 99
Carbon Dioxide 33 H
BUN 57 H
Creatinine 2.3 H
Glucose 159 H
Calcium 8.7
Vital Signs:
Vital Signs
Temp Pulse Resp BP Pulse Ox
98.7 F 72 16 162/80 94
11/12/23 08:01 11/12/23 08:34 11/12/23 08:01 11/12/23 08:34 11/12/23 08:01
I&O
11/11/23 11/12/23 11/13/23
06:59 06:59 06:59
Intake Total 960 / 960 1440 / 1440
Output Total 1900 / 1900 250 / 250
Balance -940 / -940 1190 / 1190
[2023-11-12] MEDS: LOKELMA 10 GRAM PO (09:20)
[2023-11-12] MEDS: NOVOLOG FLEXPEN 7 UNITS SC ×2 (09:21→17:32)
--- NOTE | 2023-11-12 09:39 | CM ---
Reviewed the chart notes. Patient for discharge to home with spouse providing transportation. No additional needs identified. CM continues to be available to patient/family and is monitoring medical plan for needs at discharge.
Plan: Discharge to home today.
--- NOTE | 2023-11-12 10:06 | PN.DE.MGMTRT ---
Insulin Management
- -
11/12/2023 Diabetes Management Follow up
58 year old male admitted 3/ s/p fall with tib-fib fx, now POD #9 s/p ORIF right tibial IM nail on 11/02
Prior to admission was taking Farxiga 10 mg daily Levemir 8 units BID and Humalog 10 to 12 units AC.
Patient is alert and oriented, able to participate in discussion regarding his insulin doses. Yesterday novolog doses remained @ 7 units AC, pre dinner glucose down to 51. Discussed with patient, he states he ate a smaller lunch. Will reduce
lunch dose of novolog to 5 units, continue 7 units for breakfast and dinner. Will continue Levemir 10 units BID.
Diabetes History
- -
Type of Diabetes: 2 requiring insulin
Pre-Admission Diabetes Regimen
11/12/23
04:57
Creatinine 2.3 H
Lab Results
Hemoglobin A1c 7.9 % (4.0-5.6) H 11/02/23 06:58
Insulin Pump Settings
IP Diabetes Regimen
11/11/23 11/11/23 11/11/23
11:23 17:05 17:27
Glucose
POC Glucose 227 H 51 L* 66 L
11/11/23 11/11/23 11/12/23
17:57 21:39 04:57
Glucose 159 H
POC Glucose 93 298 H
11/12/23
07:26
Glucose
POC Glucose 110 H
Meal type: Lunch
Meal type: Breakfast
Amount consumed: 70%
Amount consumed: 100%
Patient Education
[2023-11-12 11:35] LABS: Glucose - Point of Care 218 mg/dl (70-99)
[2023-11-12] MEDS: NOVOLOG FLEXPEN-LOW RESISTANCE 2 UNITS SC (12:24)
[2023-11-12] MEDS: NOVOLOG FLEXPEN 5 UNITS SC (12:24)
--- NOTE | 2023-11-12 13:22 | PN.CDI ---
CDI
- -
CDI:
Physician Documentation Request
Admit Date: 11/02/23 08:38
Dear Doctor Do,
Please review the following and provide your response in the progress notes.
Clinical Indicators:
Pt admitted with Displaced fracture of fibula/ Right ulna fracture s/p Surgery /JAMAR vs CKD
Sodium levels are as below /Pt did get IVFs
11/03/23 11/07/23 11/09/23
05:10 05:56 04:52
Sodium 134 L 131 L 134 L
11/10/23 11/12/23
04:31 04:57
Sodium 134 L 133 L
Based on the above, could you clarify in the progress notes, the appropriate diagnosis, if significant, that supports the above abnormalities and additional evaluation, monitoring and/or treatment rendered:
Hyponatremia
Abnormal lab value of clinical insignificance
Other
Use of terms such as suspected, likely, concern for, or probable (associated with a specific diagnosis that is being evaluated, monitored, or treated as if it exists) are acceptable and can be coded in the inpatient setting, when documented at the
time of discharge.
Thank you,
Annita Sena RN
CDI Specialist
[facility] [facility]
Please use your independent medical judgment in providing your response.
--- NOTE | 2023-11-12 13:38 | W.PN.HOSP.TC ---
Today's Communication/Plan
-
Discharge to short-term rehab when bed available
Assessment / Plan
Assessment / Plan
58M CAD stent HFmrEF DM HTN Hypothyroidism JESSENIA CPAP 3L at night presents following fall with comminuted fractures right lower extremity and JAMAR possible overdiuresis.
# Right tib-fib fracture
Cardio eval appreciated acceptable perioperative cardiac risk for surgery as above
Appreciate orthopedic surgery input, s/p ORIF right tibial IM nail 11/02
-strict NWB to RLE w/ assistive device
-ASA 325 mg daily x4 weeks DVT ppx upon discharge
-Splint in place 2wks until post-op visit repeat X-rays and skin clip removal
-Medically stable for discharge to [facility] when bed available, follow-up with orthopedic surgery in the office in 2 weeks
#Severe constipation
No bowel movement for 7 days
Resolved, continue aggressive bowel regimen
#Hyperkalemia
K improved today at 5.2
Continue laxatives, Lokelma, low potassium diet
Continue holding Entresto, trend potassium
# Type 2 diabetes- Brittle Diabetic
Diabetes FOREST SCIENTIST consult appreciated
Cont insulin adjustments as per diabetes FOREST SCIENTIST, hold as necessary for hypoglycemia
Farxiga on hold for now
Hold premeal insulin if patient does not intend to eat his meal
#Mild Hyponatremia
monitor
# Acute kidney injury VS CKD
# Likely reason for dizziness is patient's acute kidney injury
Status post IV fluids
Cr improved from 2.7 on admission to 2.1 likely baseline
cont to monitor
# Chronic heart failure with reduced ejection fraction
Continue beta-blockers.� Entresto and Torsemide resumed as per cardio
BNP elevated likely d/t renal insufficiency as oppose to heart failure
ECHO appreciated EF 45-50% stage I diastolic dysfunction no significant valve abn's
Cardio eval appreciated home Torsemide Farxiga resumed 11/06
Hold Entresto secondary to hyperkalemia
# Coronary artery disease with stents
Continue aspirin, statin, Coreg
# Recent admission at outside hospital for acute respiratory failure/aspiration pneumonia/Right pleural effusion-negative for malignancy
# Hypothyroidism-continue Synthroid
# Hypertension
Patient was hypotensive on admission better with IV fluids
Continue hydralazine but decrease dose to 25 twice daily
Continue Coreg, dose increased to BID as per cardio
Monitor and titrate antihypertensive regimen as necessary.
# Anemia of Chronic Disease
#Possible anemia due to chronic renal insufficiency
#Acute blood loss anemia
Iron studies appreciated possible anemia of chronic disease
Acute on chronic anemia recent surgical procedure
transfuse for goal Hgb>8 given cardiac hx (received 1PRBC prior to surgery, post-procedure received 2PRBC for Hgb 6.6 with subsequent good response 8.9)
Hematology eval appreciated procrit given 11/06 outpt US Liver spleen recommended
Hemoglobin stable at 9.0
#Hypocalcemia
Started calcium supplements
# Hyperlipidemia
Continue atorvastatin
# Pulmonary nodules
Outpatient follow-up
DVT prophylaxis�Lovenox
Full code
PT/OT appreciated SNF vs Acute (PMR eval appreciated patient does not qualify for Acute, SNF recommended)
Physical Exam
General: No Apparent Distress and Comfortable
Respiratory: Clear
Cardiac: S1/S2 and Regular Rhythm
GI: Soft, Non Tender and Normal Bowel Sounds
Musculoskeletal: Right lower extremity splint in place
Neuro: Nonfocal/grossly intact
Anticipated Discharge: Within 24 hours
Subjective/Interval History
-
Date of Service: November 12, 2023
Patient's right leg pain is tolerable. He is having bowel movements. No chest pain, no shortness of breath. No fever.
Objective Data
-
Labs:
Laboratory Results
11/12/23
04:57
WBC 5.4
Hgb 9.0 L
Hct 27.0 L
Plt Count 240
Sodium 133 L
Potassium 5.6 H
Chloride 99
Carbon Dioxide 33 H
BUN 57 H
Creatinine 2.3 H
Glucose 159 H
Calcium 8.7
Vital Signs:
Vital Signs
Temp Pulse Resp BP Pulse Ox
98.7 F 72 16 162/80 94
11/12/23 08:01 11/12/23 08:34 11/12/23 08:01 11/12/23 08:34 11/12/23 09:16
I&O
11/11/23 11/12/23 11/13/23
06:59 06:59 06:59
Intake Total 960 / 960 1440 / 1440
Output Total 1900 / 1900 250 / 250
Balance -940 / -940 1190 / 1190
--- NOTE | 2023-11-12 14:15 | CM ---
Reviewed the chart notes and spoke with Christine admissions liaison with [facility]. They are requesting an [employer] auth. Auth started in [employer] Pended # [id number]. CM continues to be available to patient/family and is monitoring medical
plan for needs at discharge.
Plan: Discharge to [facility] once auth obtained. Patient has car insurance through:
[employer]
Martina Carpenter

Claim # [id number]
[2023-11-12 15:32] VITALS: BP 154/73
[2023-11-12] MEDS: APRESOLINE 5 MG IV (16:35)
[2023-11-12 17:10] LABS: Glucose - Point of Care 136 mg/dl (70-99)
[2023-11-12] MEDS: LOVENOX 40 MG SC (17:32)
[2023-11-12] MEDS: MIRALAX PO (20:14)
[2023-11-12] MEDS: SENOKOT-S PO (20:15)
[2023-11-12 21:34] LABS: Glucose - Point of Care 191 mg/dl (70-99)
[2023-11-12 23:50] VITALS: BP 159/76
[2023-11-13 01:49] LABS: Albumin 2.88 g/dL (3.75-5.01); Alpha 1 Globulin 0.37 g/dL (0.19-0.46); Alpha 2 Globulin 0.68 g/dL (0.48-1.05); SPEP IFE Reflex Not Done; Total Protein-Electrophoresis 5.4 g/dL (6.3-8.2)
[2023-11-13 06:00] VITALS: BMI 22.9
[2023-11-13] MEDS: SYNTHROID 112 MCG PO (06:36)
--- NOTE | 2023-11-13 07:21 | PN.DE.MGMTRT ---
Insulin Management
- -
11/13/2023 Diabetes Management F/U:
58 year old male admitted 3/ s/p fall with tib-fib fx, now POD #9 s/p ORIF right tibial IM nail on 11/02
Prior to admission was taking Farxiga 10 mg daily Levemir 8 units BID and Humalog 10 to 12 units AC.
Pt awaiting rehab placement. He is A/O x3, resting in bed, offers no complaints. He is able to participate in Diabetes plan of care.
Lunch time NovoLog dose was reduced to 5 units yesterday, no hypoglycemic event noted.
Will make no changes to current regimen: Continue Novolog 7 units for breakfast and dinner and 5 units at lunch. Continue Levemir 10 units BID.
Diabetes History
- -
Type of Diabetes: 2 requiring insulin
Pre-Admission Diabetes Regimen
Lab Results
Hemoglobin A1c 7.9 % (4.0-5.6) H 11/02/23 06:58
Insulin Pump Settings
IP Diabetes Regimen
11/12/23 11/12/23 11/12/23
07:26 11:34 17:09
POC Glucose 110 H 218 H 136 H
11/12/23
21:33
POC Glucose 191 H
Patient Education
[2023-11-13 07:30] VITALS: BP 165/84
[2023-11-13 07:45] LABS: Glucose - Point of Care 91 mg/dl (70-99)
[2023-11-13] MEDS: NOVOLOG FLEXPEN 7 UNITS SC ×2 (08:50→17:37)
[2023-11-13] MEDS: NOVOLOG FLEXPEN-LOW RESISTANCE SC (08:50)
[2023-11-13] MEDS: DEMADEX 20 MG PO (08:51)
[2023-11-13] MEDS: OSCAL 500 + D 500 MG PO ×3 (08:51→21:46)
[2023-11-13] MEDS: COREG 12.5 MG PO ×2 (08:51→20:20)
[2023-11-13] MEDS: LIPITOR 40 MG PO (08:51)
[2023-11-13] MEDS: FARXIGA 10 MG PO (08:51)
[2023-11-13] MEDS: APRESOLINE 25 MG PO ×2 (08:51→20:20)
[2023-11-13] MEDS: THERAGRAN 1 TABLET PO (08:51)
[2023-11-13] MEDS: DUPHALAC/CHRONULAC 20 GRAMS PO ×2 (08:52→20:20)
[2023-11-13] MEDS: MIRALAX PO ×2 (08:52→20:21)
[2023-11-13] MEDS: SENOKOT-S PO ×2 (08:53→20:21)
[2023-11-13] MEDS: LEVEMIR 0.100000000000000006 UNITS SC ×2 (08:54→21:49)
[2023-11-13 09:36] LABS: Blood Urea Nitrogen 52 mg/dl (9-20); Calcium 9.1 mg/dl (8.4-10.2); Carbon Dioxide 32 mmol/L (22-30); Chloride 96 mmol/L (98-107); Estimated Creatinine Clearance 36 ml/min; Glucose 128 mg/dl (70-99); Potassium 5.2 mmol/L (3.5-5.1); Sodium 136 mmol/L (135-145); eGFR 36.04
[2023-11-13] MEDS: LOKELMA 10 GRAM PO (10:56)
[2023-11-13 11:49] LABS: Glucose - Point of Care 257 mg/dl (70-99)
[2023-11-13] MEDS: NOVOLOG FLEXPEN-LOW RESISTANCE 3 UNITS SC (12:24)
[2023-11-13] MEDS: NOVOLOG FLEXPEN 5 UNITS SC (12:24)
[2023-11-13 13:15] VITALS: BP 187/94; PULSE 70
[2023-11-13] MEDS: APRESOLINE 5 MG IV ×2 (13:17→17:36)
[2023-11-13 15:50] VITALS: BP 191/97
--- NOTE | 2023-11-13 16:10 | CM ---
Fara called from [facility]; [phone]/fax [phone]. Verbal approval given auth # [id number] for seven days skilled level 1. CM sent tt to CM assigned this case.
--- NOTE | 2023-11-13 16:26 | CM ---
Patient with Dx Right tib-fib fracture s/p s/p ORIF right tibial IM nail 11/02. PT & OT recommend skilled rehab.
Message from KAILEY Villela: Fara reis from [facility]; [phone]/fax [phone]. Verbal approval given auth # [id number] for seven days skilled level 1.
Spoke with Christine, [facility]; auth info provided. They are able to take the patient tomorrow. The [phone], fax [phone].
Update provided to Dr Burnham.
Spoke with patient who agrees to d/c tomorrow to [facility].
Plan [facility] tomorrow.
[2023-11-13 17:32] LABS: Glucose - Point of Care 235 mg/dl (70-99)
[2023-11-13] MEDS: LOVENOX 40 MG SC (17:35)
[2023-11-13] MEDS: NOVOLOG FLEXPEN-LOW RESISTANCE 2 UNITS SC (17:37)
[2023-11-13 21:31] LABS: Glucose - Point of Care 303 mg/dl (70-99)
[2023-11-13] MEDS: ROXICODONE 5 MG PO (21:46)
[2023-11-13] MEDS: NOVOLOG FLEXPEN 4 UNITS SC (21:48)
[2023-11-13 23:00] VITALS: BP 139/74
[2023-11-14 06:00] VITALS: BMI 22.4
[2023-11-14] MEDS: SYNTHROID 112 MCG PO (06:32)
[2023-11-14 06:57] LABS: Glucose - Point of Care 62 mg/dl (70-99)
[2023-11-14 07:22] LABS: Glucose - Point of Care 105 mg/dl (70-99)
[2023-11-14 07:33] VITALS: BP 167/89
[2023-11-14] MEDS: DUPHALAC/CHRONULAC 20 GRAMS PO ×2 (07:46→20:29)
[2023-11-14] MEDS: MIRALAX 17 GRAMS PO ×2 (07:46→20:28)
[2023-11-14] MEDS: COREG 12.5 MG PO ×2 (07:46→20:28)
[2023-11-14] MEDS: SENOKOT-S 2 TABLET PO ×2 (07:46→20:29)
[2023-11-14] MEDS: THERAGRAN 1 TABLET PO (07:47)
[2023-11-14] MEDS: APRESOLINE 25 MG PO (07:47)
[2023-11-14] MEDS: FARXIGA 10 MG PO (07:47)
[2023-11-14] MEDS: DEMADEX 20 MG PO (07:47)
[2023-11-14] MEDS: LIPITOR 40 MG PO (07:47)
--- NOTE | 2023-11-14 08:10 | W.PN.HOSP.TC ---
Today's Communication/Plan
-
Discharge to short-term rehab tomorrow with continued improvement in hyperkalemia
Assessment / Plan
Assessment / Plan
58M CAD stent HFmrEF DM HTN Hypothyroidism JESSENIA CPAP 3L at night presents following fall with comminuted fractures right lower extremity and JAMAR possible overdiuresis.
# Right tib-fib fracture
Cardio eval appreciated acceptable perioperative cardiac risk for surgery as above
Appreciate orthopedic surgery input, s/p ORIF right tibial IM nail 11/02
-strict NWB to RLE w/ assistive device
-ASA 325 mg daily x4 weeks DVT ppx upon discharge
-Splint in place 2wks until post-op visit repeat X-rays and skin clip removal
-Hopeful for discharge to short-term rehab tomorrow, follow-up with orthopedic surgery in the office in 2 weeks
#Severe constipation
No bowel movement for 7 days
Resolved, continue aggressive bowel regimen
#Hyperkalemia
K improved today at 5.2
Continue laxatives, Lokelma, low potassium diet
Continue holding Entresto, trend potassium
# Hypertension
Patient was hypotensive on admission better with IV fluids
Continue Coreg, dose increased to 12.5 mg twice a day as per cardiology
Blood pressure high due to holding Entresto for hyperkalemia
Increase hydralazine to 75 mg 3 times daily
# Acute kidney injury VS CKD
# Likely reason for dizziness is patient's acute kidney injury
Status post IV fluids
Cr improved from 2.7 on admission to 2.2 likely baseline
cont to monitor
# Chronic heart failure with reduced ejection fraction
Continue beta-blockers.� Entresto and Torsemide resumed as per cardio
BNP elevated likely d/t renal insufficiency as oppose to heart failure
ECHO appreciated EF 45-50% stage I diastolic dysfunction no significant valve abn's
Cardio eval appreciated, Torsemide Farxiga resumed 11/06
Hold Entresto secondary to hyperkalemia
# Type 2 diabetes- Brittle Diabetic
Diabetes BATTERY CONTAINER TESTER ALUMINUM consult appreciated
Cont insulin adjustments as per diabetes BATTERY CONTAINER TESTER ALUMINUM, hold as necessary for hypoglycemia
Farxiga resumed
Hold premeal insulin if patient does not intend to eat his meal
#Mild Hyponatremia
monitor
# Coronary artery disease with stents
Continue aspirin, statin, Coreg
# Recent admission at outside hospital for acute respiratory failure/aspiration pneumonia/Right pleural effusion-negative for malignancy
# Hypothyroidism-continue Synthroid
# Anemia of Chronic Disease
#Possible anemia due to chronic renal insufficiency
#Acute blood loss anemia
Iron studies appreciated possible anemia of chronic disease
Acute on chronic anemia recent surgical procedure
transfuse for goal Hgb>8 given cardiac hx (received 1PRBC prior to surgery, post-procedure received 2PRBC for Hgb 6.6 with subsequent good response 8.9)
Hematology eval appreciated procrit given 11/06 outpt US Liver spleen recommended
Hemoglobin stable at 9.7
#Hypocalcemia
Started calcium supplements
# Hyperlipidemia
Continue atorvastatin
# Pulmonary nodules
Outpatient follow-up
DVT prophylaxis�Lovenox
Full code
PT/OT appreciated SNF vs Acute (PMR eval appreciated patient does not qualify for Acute, SNF recommended)
Total time spent to see the patient on the floor, examine the patient, review data and lab results, discuss treatment plan with patient, nursing staff around 51 minutes.
Physical Exam
General: No Apparent Distress and Comfortable
Respiratory: Clear
Cardiac: S1/S2 and Regular Rhythm
GI: Soft, Non Tender and Normal Bowel Sounds
Musculoskeletal: Right lower extremity splint in place
Neuro: Nonfocal/grossly intact
Anticipated Discharge: Within 24 hours
Subjective/Interval History
-
Date of Service: November 14, 2023
Patient continues to have bowel movements. No chest pain, shortness of breath, palpitations. No fever. Leg pain is controlled.
Objective Data
-
Vital Signs:
Vital Signs
Temp Pulse Resp BP Pulse Ox
98.3 F 67 16 167/89 94
11/14/23 07:33 11/14/23 07:47 11/14/23 07:33 11/14/23 07:47 11/14/23 07:33
I&O
11/13/23 11/14/23 11/15/23
06:59 06:59 06:59
Intake Total 1260 / 1260 720 / 720
Output Total 800 / 800 1550 / 1550
Balance 460 / 460 -830 / -830
[2023-11-14 08:57] LABS: Hematocrit 29.3 % (39.0-52.0); Hemoglobin 9.7 g/dL (13.0-18.0); Mean Corp Hgb Conc. 33.1 g/dL (33.0-37.0); Mean Corpuscular Hgb 31.6 pg (27.0-31.0); Mean Corpuscular Volume 95.4 fL (80.0-94.0); Mean Platelet Volume 9.1 fL (7.4-10.4); Platelet Count 259 10^3/uL (130-400); Red Blood Cell Count 3.07 10^6/uL (4.70-6.10); Red Cell Dist. Width 13.7 % (11.5-14.5); White Blood Cell Count 5.1 10^3/uL (4.8-10.8)
[2023-11-14] MEDS: OSCAL 500 + D 500 MG PO ×3 (08:57→21:35)
[2023-11-14] MEDS: NOVOLOG FLEXPEN 7 UNITS SC ×2 (08:58→18:07)
[2023-11-14] MEDS: NOVOLOG FLEXPEN-LOW RESISTANCE SC ×2 (09:00→17:42)
--- NOTE | 2023-11-14 09:20 | CM ---
Addendum entered by Tika Araujo 11/14/23 12:27:
Physician requested patient go tomorrow not today. CM updated nursing and physician. plan for transfer tomorrow.
Original Note:
patient updated at bedside, awaiting confirmation of ambulance transportation time. CM confirmed with Christine at SNF;admissions. CM will continue to follow for discharge planning needs.
Plan; SNF
[2023-11-14 09:36] LABS: Blood Urea Nitrogen 48 mg/dl (9-20); Calcium 9.1 mg/dl (8.4-10.2); Carbon Dioxide 34 mmol/L (22-30); Chloride 93 mmol/L (98-107); Estimated Creatinine Clearance 34 ml/min; Glucose 109 mg/dl (70-99); Magnesium 2.9 mg/dl (1.6-2.3); Potassium 5.3 mmol/L (3.5-5.1); Sodium 134 mmol/L (135-145); eGFR 34.08
[2023-11-14] MEDS: LEVEMIR 0.100000000000000006 UNITS SC (09:41)
[2023-11-14] MEDS: APRESOLINE IV (09:46)
[2023-11-14] MEDS: LOKELMA 10 GRAM PO ×3 (09:50→17:07)
[2023-11-14] MEDS: APRESOLINE 5 MG IV (10:36)
[2023-11-14 11:54] LABS: Glucose - Point of Care 175 mg/dl (70-99)
[2023-11-14] MEDS: APRESOLINE 75 MG PO ×2 (12:57→21:39)
[2023-11-14] MEDS: NOVOLOG FLEXPEN-LOW RESISTANCE 1 UNITS SC (13:00)
[2023-11-14] MEDS: NOVOLOG FLEXPEN 5 UNITS SC (13:01)
[2023-11-14 14:31] LABS: Glucose - Point of Care 162 mg/dl (70-99)
[2023-11-14 15:52] VITALS: BP 138/67
[2023-11-14] MEDS: LOVENOX 40 MG SC (17:07)
[2023-11-14] MEDS: APRESOLINE PO (17:08)
[2023-11-14 17:29] LABS: Glucose - Point of Care 87 mg/dl (70-99)
[2023-11-14 21:34] LABS: Glucose - Point of Care 147 mg/dl (70-99)
[2023-11-14] MEDS: LEVEMIR 0.0800000000000000017 UNITS SC (21:36)
[2023-11-14] MEDS: TYLENOL 650 MG PO (21:42)
[2023-11-14 23:20] VITALS: BP 154/82
[2023-11-15 03:20] VITALS: BP 139/73
[2023-11-15 06:00] VITALS: BMI 22.5
[2023-11-15] MEDS: LOKELMA 10 GRAM PO (06:07)
[2023-11-15 07:24] LABS: Glucose - Point of Care 123 mg/dl (70-99)
[2023-11-15 07:25] VITALS: BP 158/76
--- NOTE | 2023-11-15 08:04 | W.PN.HOSP.TC ---
Today's Communication/Plan
-
Stable for discharge to short-term rehab today
Assessment / Plan
Assessment / Plan
58M CAD stent HFmrEF DM HTN Hypothyroidism JESSENIA CPAP 3L at night presents following fall with comminuted fractures right lower extremity and JAMAR possible overdiuresis.
# Right tib-fib fracture
Cardio eval appreciated acceptable perioperative cardiac risk for surgery as above
Appreciate orthopedic surgery input, s/p ORIF right tibial IM nail 11/02
-strict NWB to RLE w/ assistive device
-ASA 325 mg daily x4 weeks DVT ppx through 11/30/23, then aspirin 81 md daily
-Splint in place 2wks until post-op visit repeat X-rays and skin clip removal
-Medically stable for discharge to short-term rehab today, follow-up with Dr. Evans 11/17/23
#Severe constipation
No bowel movement for 7 days
Resolved, continue aggressive bowel regimen
#Hyperkalemia
Resolved, potassium 4.3 today
Continue laxatives, low potassium diet
Repeat BMP at rehab on 11/15
# Hypertension
Patient was hypotensive on admission better with IV fluids
Continue Coreg, dose increased to 12.5 mg twice a day as per cardiology
Hyperkalemia resolved, resume Entresto upon discharge
# Acute kidney injury VS CKD
# Likely reason for dizziness is patient's acute kidney injury
Status post IV fluids
Cr improved from 2.7 on admission to 2.3 likely baseline
cont to monitor
# Chronic heart failure with reduced ejection fraction
Continue beta-blockers.� Entresto and Torsemide resumed as per cardio
BNP elevated likely d/t renal insufficiency as oppose to heart failure
ECHO appreciated EF 45-50% stage I diastolic dysfunction no significant valve abn's
Cardio eval appreciated, Torsemide Farxiga resumed 11/06
Hyperkalemia resolved, resume Entresto upon discharge
# Type 2 diabetes- Brittle Diabetic
Diabetes INVESTIGATOR OPERATOR consult appreciated
Cont insulin adjustments as per diabetes INVESTIGATOR OPERATOR, hold as necessary for hypoglycemia
Farxiga resumed
Hold premeal insulin if patient does not intend to eat his meal
#Mild Hyponatremia
monitor
# Coronary artery disease with stents
Continue aspirin, statin, Coreg
# Recent admission at outside hospital for acute respiratory failure/aspiration pneumonia/Right pleural effusion-negative for malignancy
# Hypothyroidism-continue Synthroid
# Anemia of Chronic Disease
#Possible anemia due to chronic renal insufficiency
#Acute blood loss anemia
Iron studies appreciated possible anemia of chronic disease
Acute on chronic anemia recent surgical procedure
transfuse for goal Hgb>8 given cardiac hx (received 1PRBC prior to surgery, post-procedure received 2PRBC for Hgb 6.6 with subsequent good response 8.9)
Hematology eval appreciated procrit given 11/06 outpt US Liver spleen recommended
Hemoglobin stable at 8.8
#Hypocalcemia
Started calcium supplements
# Hyperlipidemia
Continue atorvastatin
# Pulmonary nodules
Outpatient follow-up
DVT prophylaxis�Lovenox
Full code
PT/OT appreciated SNF vs Acute (PMR eval appreciated patient does not qualify for Acute, SNF recommended)
Physical Exam
General: No Apparent Distress and Comfortable
Respiratory: Clear
Cardiac: S1/S2 and Regular Rhythm
GI: Soft, Non Tender and Normal Bowel Sounds
Musculoskeletal: Right lower extremity splint in place
Neuro: Nonfocal/grossly intact
Anticipated Discharge: Today
Subjective/Interval History
-
Date of Service: November 15, 2023
Patient denies chest pain, shortness of breath, or palpitations. No nausea, no vomiting. No fever.
Objective Data
-
Labs:
Laboratory Results
11/15/23
09:00
WBC Pending
Hgb Pending
Hct Pending
Plt Count Pending
Sodium Pending
Potassium Pending
Chloride Pending
Carbon Dioxide Pending
BUN Pending
Creatinine Pending
Glucose Pending
Calcium Pending
Vital Signs:
Vital Signs
Temp Pulse Resp BP Pulse Ox
98.2 F 74 14 158/76 95
11/15/23 07:25 11/15/23 07:25 11/15/23 07:25 11/15/23 07:25 11/15/23 07:25
I&O
11/14/23 11/15/23 11/16/23
06:59 06:59 06:59
Intake Total 720 / 720 1440 / 1440
Output Total 1550 / 1550 200 / 200
Balance -830 / -830 1240 / 1240
[2023-11-15] MEDS: OSCAL 500 + D 500 MG PO ×2 (08:33→15:33)
[2023-11-15] MEDS: FARXIGA 10 MG PO (08:33)
[2023-11-15] MEDS: THERAGRAN 1 TABLET PO (08:33)
[2023-11-15] MEDS: APRESOLINE 75 MG PO ×2 (08:34→15:33)
[2023-11-15] MEDS: COREG 12.5 MG PO (08:34)
[2023-11-15] MEDS: SENOKOT-S 2 TABLET PO (08:34)
[2023-11-15] MEDS: SYNTHROID 112 MCG PO (08:34)
[2023-11-15] MEDS: LIPITOR 40 MG PO (08:36)
[2023-11-15] MEDS: DEMADEX 20 MG PO (08:36)
[2023-11-15] MEDS: NOVOLOG FLEXPEN-LOW RESISTANCE SC (08:37)
[2023-11-15] MEDS: MIRALAX 17 GRAMS PO (08:37)
[2023-11-15] MEDS: DUPHALAC/CHRONULAC 20 GRAMS PO (08:38)
[2023-11-15] MEDS: LEVEMIR 0.100000000000000006 UNITS SC (08:38)
[2023-11-15 09:01] LABS: Hematocrit 25.7 % (39.0-52.0); Hemoglobin 8.8 g/dL (13.0-18.0); Mean Corp Hgb Conc. 34.2 g/dL (33.0-37.0); Mean Corpuscular Hgb 31.8 pg (27.0-31.0); Mean Corpuscular Volume 92.8 fL (80.0-94.0); Mean Platelet Volume 8.8 fL (7.4-10.4); Platelet Count 229 10^3/uL (130-400); Red Blood Cell Count 2.77 10^6/uL (4.70-6.10); White Blood Cell Count 4.8 10^3/uL (4.8-10.8)
[2023-11-15 09:16] LABS: Blood Urea Nitrogen 45 mg/dl (9-20); Calcium 8.4 mg/dl (8.4-10.2); Carbon Dioxide 33 mmol/L (22-30); Chloride 98 mmol/L (98-107); Estimated Creatinine Clearance 33 ml/min; Glucose 128 mg/dl (70-99); Potassium 4.3 mmol/L (3.5-5.1); Sodium 133 mmol/L (135-145); eGFR 32.31
[2023-11-15] MEDS: NOVOLOG FLEXPEN 4 UNITS SC (10:04)
[2023-11-15 11:05] VITALS: BP 130/65
--- NOTE | 2023-11-15 11:11 | CM ---
Per physician patient for transfer today to SNF, awaiting ambulance time. CM updated admissions at facility,[facility]; auth info provided. They are able to take the patient tomorrow. The [phone], fax [phone].
Plan; transfer to SNF
--- NOTE | 2023-11-15 11:25 | W.DCSUMMARY ---
Discharge Summary
Discharge Data
Date of Admission: 11/02/23
Date of Discharge: 11/15/23
-
Pending Results: No
Hospital Course
Discharge diagnoses:
Acute right tibia/fibular fracture status post repair
Severe constipation
Hyperkalemia
Benign essential hypertension
Acute kidney injury superimposed on stage IIIb chronic kidney disease
Acute blood loss anemia superimposed on anemia of chronic disease
Heart failure with reduced ejection fraction
Brittle diabetes
Coronary artery disease status post stent placement
Hyponatremia
Hypothyroidism
Hypocalcemia
Consults: Orthopedic surgery, hematology, cardiology
Procedures:
11/03/2023 ORIF right tibial IM nail
Hospital course:
58-year-old male became lightheaded and dizzy, stepping out of his car, and sustained a right tibia/fibula fracture. Patient was seen in conjunction with orthopedic surgery, and had right tibial IM nail on 11/03/2023.
Patient was found to have acute blood loss anemia superimposed on anemia of chronic disease. His hemoglobin was 8.6 upon admission. It dropped to 7.2, he was transfused 2 units of blood. It increased to 8.5. It dropped to 6.6 postoperatively, he
was transfused an additional 2 units of blood for total 4 units of blood.
Patient was seen conjunction with hematology, who suspects that his anemia is multifactorial in nature, due to deficiency of erythropoietin, and acute blood loss from his surgery/fracture. He received Procrit 10,000 units. His hemoglobin was
monitored, remained stable at 8.8 on the day of discharge.
Patient was seen in conjunction with cardiology for his history of heart failure. He was continued on torsemide 20 mg daily, Farxiga, and Entresto.
His hospital course was complicated by severe constipation and hyperkalemia. His Entresto was held. He received laxatives and Lokelma. His potassium normalized, was 4.3 on the day of discharge. He will be discharged on laxatives, and he can
resume his Entresto upon discharge.
Patient has brittle diabetes, he was seen in conjunction with the diabetes nurse practitioner, who adjusted his insulin. They recommended discharge on Levemir 10 units daily, 8 units at bedtime. They also recommend aspart 7 units with breakfast
and dinner, 5 units with lunch.
Patient also had acute kidney injury superimposed on stage IIIb chronic kidney disease. His creatinine was as high as 2.7, and improved to 2.3 upon discharge, which is his baseline.
Patient is medically stable for discharge. He needs to take aspirin 325 mg daily through 11/30/2023 for DVT prophylaxis, then resume his previous aspirin 81 mg daily dose. He needs to follow-up with Dr. Evans/orthopedic surgery on 11/17/2023 for
staple removal, and x-rays. He is to be nonweightbearing of the right lower extremity with assistive device, and keep his splint on until seen by orthopedic surgery.
He also needs to follow-up with his primary care doctor 1 week after he leaves rehab, as well as his usual billet cutter in 2-3 weeks.
Disposition: Short-term rehab
Discharge planning: Required 50 minutes
Discharge Plan
-
Patient Disposition: Custodial/SNF
Discharge Diagnosis/Procedures: Right tibia/fibula fracture status post surgery, hyperkalemia, constipation, congestive heart failure, brittle diabetes, acute kidney injury superimposed kidney disease, hypertension, acute blood loss anemia
superimposed on anemia of chronic disease, pulmonary nodules
Condition: Fair
Diet: Diabetic, Carb Controlled
Additional Diets: Low potassium diet
Activity: Do not bear weight R leg
Additional Activity: Strict nonweightbearing right lower extremity with assistive device.
Blood Work: CBC, BMP on 11/16/23. Hgb on discharge 8.8, K on discharge 4.3.
Other Services: PT and OT
Activity Restrictions/Additional Instructions:
You have pulmonary nodules. Recommend you follow-up with pulmonology in the office for monitoring.
Strict nonweightbearing right lower extremity with assistive device.
Splint in place 2wks until post-op visit repeat X-rays and skin clip removal.
Follow-up with orthopedic surgery on 11/17/23 for your surgery on 11/03/23, call for appointment.
Take aspirin 325 mg daily for 4 weeks for blood clot prevention through 11/30/23, then take aspirin 81 mg daily.
Follow-up with your primary care doctor 1 week after you leave rehab.
Referrals:
Amarilis Murphy DO [Active] - in three to four weeks
Carlos Evans MD [Active] - in one to two days
UNKNOWN,NO INTERVIEW [Family Provider] -
Prescriptions:
New
aspirin 325 mg tablet,delayed release (DR/EC)
325 mg PO DAILY 16 Days Qty: 16 0RF
polyethylene glycol 3350 [HealthyLax] 17 gram Powder In Packet
17 g PO BID Qty: 0 0RF
insulin aspart U-100 100 unit/mL (3 mL) Insulin Pen
7 unit SC DAILY@0730,1630 Qty: 0 0RF
Insulin Detemir Levemir [Levemir] 10 UNITS
Subcutaneous Insulin Syringe [Syringe-Insulin] 0 UNIT
As Directed mls/hr SC DAILY
Ordered By: Richard Burnham MD
Last Taken: 11/15/23 08:38 0.1 mls
Insulin Detemir Levemir [Levemir] 8 UNITS
Subcutaneous Insulin Syringe [Syringe-Insulin] 0 UNIT
As Directed mls/hr SC HS
Ordered By: Richard Burnham MD
Last Taken: 11/14/23 21:36 0.08 mls
insulin aspart U-100 100 unit/mL (3 mL) Insulin Pen
5 unit SC DAILY@1130 Qty: 0 0RF
acetaminophen 325 mg Tablet
650 mg PO Q6HPRN PRN (Reason: mild pain/ fever>100.5F) Qty: 30 0RF
oxycodone 5 mg Tablet
5 mg PO Q4HPRN PRN (Reason: mild pain) Qty: 5 0RF
calcium carbonate-vitamin D3 [Oyster Shell Calcium-Vit D3] 500 mg-5 mcg (200 unit) Tablet
1 tab PO TID Qty: 20 0RF
Continued
atorvastatin 40 MG tablet
40 mg PO DAILY
carvedilol 12.5 MG tablet
12.5 mg PO DAILY
Patient Comments:
11/01/23- patient stated he only takes this 12.5mg daily and once a week he may take it twice a day
levothyroxine [Synthroid] 112 mcg Tablet
112 mcg PO DAILY
torsemide 20 mg Tablet
20 mg PO DAILY
therapeutic multivitamin Tablet
1 tab PO DAILY
hydralazine 50 mg Tablet
50 mg PO BID
dapagliflozin propanediol [Farxiga] 10 mg Tablet
10 mg PO DAILY
Entresto 49-51 mg Tablet
1 tab PO BID
Discontinued
aspirin 81 MG tablet,delayed release (DR/EC)
81 mg PO DAILY
insulin lispro [Humalog U-100 Insulin] 100 UNIT/ML solution
10 - 12 unit SC AC
Levemir FlexPen 100 unit/mL (3 mL) Insulin Pen
8 unit SC BID
furosemide [Lasix] 40 mg Tablet
40 mg PO DAILY
Discharge Orders:
Discharge Patient (As Directed); Ordered 11/15/23
Ordered By: Richard Burnham
[2023-11-15 11:49] LABS: Glucose - Point of Care 194 mg/dl (70-99)
[2023-11-15] MEDS: NOVOLOG FLEXPEN 3 UNITS SC ×2 (13:05→17:40)
[2023-11-15] MEDS: NOVOLOG FLEXPEN-LOW RESISTANCE 1 UNITS SC ×2 (13:06→17:39)
[2023-11-15] MEDS: LOKELMA PO (13:08)
[2023-11-15 14:29] LABS: Glucose - Point of Care 147 mg/dl (70-99)
[2023-11-15 15:25] VITALS: BP 181/96
[2023-11-15 16:30] VITALS: BP 160/76
[2023-11-15] MEDS: APRESOLINE 5 MG IV (16:36)
[2023-11-15 16:57] VITALS: BP 156/74
[2023-11-15 17:04] LABS: Glucose - Point of Care 164 mg/dl (70-99)
== END 2023-11-15 17:57 | DRG 493 ==
LOC: 2 SOUTH 08:38
PROVIDERS: Internal Medicine; Nurse Practitioner; Nurse Practitioner Family; ADMITTING PHYSICIAN Hospitalist; ATTENDING PHYSICIAN Family Medicine; CONSULT PHYSICIAN Internal Medicine Cardiovascular Disease; CONSULT PHYSICIAN Internal Medicine Hematology & Oncology; CONSULT PHYSICIAN Physical Medicine & Rehabilitation; EMERGENCY PHYSICIAN Emergency Medicine; OTHER PHYSICIAN Orthopaedic Surgery
PROC: 0QSG06Z Reposition Right Tibia with Intramedullary Internal Fixation Device, Open Approach (ICD-10-PCS; 2023-11-03)
DX: S82.391A Other fracture of lower end of right tibia, initial encounter for closed fracture (principal); D62 Acute posthemorrhagic anemia; I13.0 Hypertensive heart and chronic kidney disease with heart failure and stage 1 through stage 4 chronic kidney disease, or unspecified chronic kidney disease; N17.9 Acute kidney failure, unspecified; E87.1 Hypo-osmolality and hyponatremia; I50.22 Chronic systolic (congestive) heart failure; S82.831A Other fracture of upper and lower end of right fibula, initial encounter for closed fracture; E03.9 Hypothyroidism, unspecified; N18.32 Chronic kidney disease, stage 3b; E11.22 Type 2 diabetes mellitus with diabetic chronic kidney disease; E11.319 Type 2 diabetes mellitus with unspecified diabetic retinopathy without macular edema; E11.40 Type 2 diabetes mellitus with diabetic neuropathy, unspecified; E11.649 Type 2 diabetes mellitus with hypoglycemia without coma; E78.00 Pure hypercholesterolemia, unspecified; D63.8 Anemia in other chronic diseases classified elsewhere; I95.1 Orthostatic hypotension; I25.5 Ischemic cardiomyopathy; R42 Dizziness and giddiness; D69.6 Thrombocytopenia, unspecified; D69.1 Qualitative platelet defects; E83.51 Hypocalcemia; E87.5 Hyperkalemia; K59.00 Constipation, unspecified; R91.8 Other nonspecific abnormal finding of lung field; I25.10 Atherosclerotic heart disease of native coronary artery without angina pectoris; G47.33 Obstructive sleep apnea (adult) (pediatric); W19.XXXA Unspecified fall, initial encounter; Y93.89 Activity, other specified; Y92.89 Other specified places as the place of occurrence of the external cause; Z87.891 Personal history of nicotine dependence; Z79.890 Hormone replacement therapy; Z79.82 Long term (current) use of aspirin; Z95.5 Presence of coronary angioplasty implant and graft; Z79.4 Long term (current) use of insulin; Z87.01 Personal history of pneumonia (recurrent)
CPT/HCPCS: 70450; 71046; 73590; 73610; 73700; 76000; 80048; 80053; 82306; 82607; 82668; 82728; 82947; 82962; 83010; 83036; 83521; 83540; 83550; 83615; 83735; 83880; 84100; 84132; 84155; 84165; 84484; 85014; 85018; 85025; 85027; 85045; 85610; 86850; 86900; 86901; 86920; 92523; 92610; 93005; 93306; 96360; 97116; 97163; 97167; 97530; 97535; 99285; C1713; C1769; J1610; P9016; Q5106

== ENCOUNTER 2023-11-17 13:09 | Inpatient (IN) | payer OTHER, SELFPAY ==
[2023-11-17] VITALS (15 sets, daily range): BP systolic 75–202; BP diastolic 57–96; BMI 22.5
[2023-11-17 08:31] LABS: Glucose - Point of Care 111 mg/dl (70-99)
[2023-11-17 08:53] LABS: % Basophils 0.4 % (0-2); % Eosinophils 1.1 % (0-6); % Immature Granulocytes 0.4 % (0-0.5); % Lymphocytes 10.5 % (20.5-51.1); % Monocytes 4.7 % (1.7-9.3); % Neutrophils 82.9 % (42.2-75.2); Absolute Eosinophils 0.1 10^3/uL (0-0.7); Absolute Lymphocytes 0.6 10^3/uL (1.2-3.4); Absolute Monocytes 0.3 10^3/uL (0.1-0.6); Absolute Neutrophils 4.6 10^3/uL (1.4-6.5); Hematocrit 39.8 % (39.0-52.0); Hemoglobin 13.4 g/dL (13.0-18.0); Mean Corp Hgb Conc. 33.7 g/dL (33.0-37.0); Mean Corpuscular Hgb 31.7 pg (27.0-31.0); Mean Corpuscular Volume 94.1 fL (80.0-94.0); Mean Platelet Volume 8.7 fL (7.4-10.4); Nucleated Red Blood Cells % 0 % (-); Platelet Count 258 10^3/uL (130-400); Red Blood Cell Count 4.23 10^6/uL (4.70-6.10); Red Cell Dist. Width 14.2 % (11.5-14.5); White Blood Cell Count 5.5 10^3/uL (4.8-10.8)
[2023-11-17 09:04] LABS: ALT (SGPT) 11 U/L (0-50); AST (SGOT) 36 U/L (17-59); Albumin 3.9 g/dl (3.5-5.0); Alkaline Phosphatase 123 U/L (38-126); Blood Urea Nitrogen 55 mg/dl (9-20); Calcium 9.2 mg/dl (8.4-10.2); Carbon Dioxide 29 mmol/L (22-30); Chloride 98 mmol/L (98-107); Glucose 122 mg/dl (70-99); Potassium 4.6 mmol/L (3.5-5.1); Sodium 138 mmol/L (135-145); Total Bilirubin 0.7 mg/dl (0.2-1.3); Total Protein 7.1 g/dl (6.3-8.2); eGFR 38.21
--- NOTE | 2023-11-17 09:06 | ED.GENMED ---
History of Present Illness
General
Chief Complaint: Blood Sugar Problem
Source: patient and previous hospital records
Exam Limitations: none
Time Seen by Provider: 11/17/23 08:31
Nursing documentation reviewed up to this point in time: agreed with
Travel History
Have you had any contact with someone who has COVID-19?: No
Do you have any symptoms of coronavirus? Fever > 100 degrees, chills, cough, shortness of breath, sore throat, loss of taste or smell, muscle aches, or headache?: No
History of Present Illness
History of Present Illness:
The patient is a 58-year-old man with a past medical history of insulin-dependent diabetes and recent admission for a right tib-fib fracture. Patient was sent from [facility] rehab facility after being found unresponsive at around 7:45 AM this
morning. Patient reports that he had arrived at the rehab facility 2 days ago and feels that his blood sugar was ignored and he did not get his proper medication. Patient reports that yesterday his blood sugar was found to be at very elevated in
the 570s. According to nursing staff at [facility] who I spoke to over the phone, the patient was given 17 units of lispro at 6:15 PM last night after his blood sugar was found to be 573. Additionally, he was given 20 units of Levemir at 8:15
PM. Reportedly, patient was found unresponsive at 7:45 AM this morning. He reports that he had felt clammy prior to that. Patient was given IV glucagon at rehab facility and reportedly, by 8:10 am this morning, was much more awake. Patient
arrives to me without complaints. He is alert and oriented x 3. He attributes this to loss of consciousness to ' being overdosed on insulin'. On arrival, patient is cool to the touch and found to have a temperature of 92.
Past History
Past History
ED Past Medical History: HTN, Hypercholesterolemia and IDDM
ED Past Surgical History: None
Social History
Tobacco: Former smoker
Alcohol: Occasional
Personal:
Living: with family
Employment: Other
Review of Systems
Review of Systems
Allergies reviewed?: Yes
All Other Systems: ROS reviewed and negative except as documented in HPI and ROS
Constitutional: Reports fatigue
EENT: Reports no symptoms
Respiratory: Reports no symptoms
Cardiac: Reports no symptoms
ABD/GI: Reports no symptoms
: Reports no symptoms
Musculoskeletal: Reports no symptoms
Skin: Reports no symptoms
Neurological: Reports no symptoms
Endocrine: Reports no symptoms
Hematologic/Lymphatic: Reports no symptoms
Psychiatric: Reports no symptoms
Phy Exam
Physical Exam
Physical Exam:
Physical Exam
General: no apparent distress, not acutely ill
Neck: supple. no meningeal signs. normal psoterior pharynx
Heart: s1/s2 regular rate and rhythm, no murmur. equal radial pulses.
Lungs: no acute respiratory distress. clear bilaterally
Abdomen: normal bowel sounds. not tender. no CVAT
Neuro: alert and oriented. no focal neurological deficits. Left eye appears more closed than right, however, patient reports this is chronic. Patient has equal strength in bilateral upper and lower extremities.
Skin: no rash
Psychiatric: well kept. interactive and cooperative
Extremities: no edema. Posterior splint on right lower extremity. Strong pulses in right foot.
Course
Orders/Labs/Results
Orders:
Orders
11/17/23 08:43
Complete Blood Count/With Diff Urgent
Comprehensive Metabolic Panel Urgent
11/17/23 09:29
Electrocardiogram (*1) Urgent
Reason for Study: Syncope
EKG- Treatment ONCE
11/17/23 10:06
Troponin I Urgent
11/17/23 10:24
Urinalysis Reflex To Culture Urgent
CR Chest Portable - 1 View Urgent
Comment:
Reason For Exam: hypothermia
Reason Study Needs to be Portable: Patient Unstable
11/17/23 10:30
Lactic Acid Urgent
Blood Culture Q30M
JHON Source: Blood/Venous
Specimen Description:
Blood Culture Q30M
JHON Source: Blood/Venous
Specimen Description:
11/17/23 11:12
0.9% Sodium Chloride 1000 ml [Nss] 1,000 ml IV BOLUS
11/17/23 11:24
Procalcitonin Urgent
PCT Algorithmm Indication: Sepsis
11/17/23 12:21
Vancomycin [Vancocin] 1,750 mg 0.9% Sodium Chloride [Nss] 20 ml 0.9% Sodium Chloride 250 ml [Nss] 250 ml IV NOW
11/17/23 12:22
Piperacillin/Tazo 4.5 Gram [Zosyn] 4.5 gram in 100 ml IV NOW
11/17/23 12:40
Admit/Transfer Patient As Directed
Co-Sign Provider:
Level of Care: Inpatient admission
Assign to:: IMU- Intermediate Care
Physician / Group: Bibi Pichardo
Diagnosis: AMS Hypothermia Shock likely d/t iatrogenic hypoglycemia
Reason for Hospitalization: AMS Hypothermia Shock likely d/t iatrogenic hypoglycemia
Expected length of stay greater than two midnights?: Yes
ELOS- Estimated Length of Stay in days: 2
I certify the patient meets the requirements for IP care: Yes
11/17/23 12:47
Code Status As Directed
Resuscitation Status: Full Code
11/17/23 12:51
Case Management Consult ONCE
Case Management Consult: Discharge Planning
I/O [Intake/ Output] As Directed
Frequency: Per unit guidelines
Weight As Directed
Frequency: Daily
11/17/23 12:55
Diabetes Management by Nurse Practitioner Routine
Consulting Provider: Lois Dawson
Was provider already notified?: Yes
Reason for Consult: Insulin Management
11/18/23 06:00
Ot Eval And Treat IN AM
Pt Eval And Treat IN AM
Activity Level: With Assistance
Abnormal Lab Results
11/17/23 11/17/23 11/17/23
08:29 08:43 11:24
RBC 4.23 L 10^6/uL
(4.70-6.10)
MCV 94.1 H fL
(80.0-94.0)
MCH 31.7 H pg
(27.0-31.0)
Absolute Lymphs (auto) 0.6 L 10^3/uL
(1.2-3.4)
Neutrophils % 82.9 H %
(42.2-75.2)
Lymphocytes % 10.5 L %
(20.5-51.1)
BUN 55 H mg/dl
(9-20)
Creatinine 2.0 H mg/dL
(0.7-1.3)
Glucose 122 H mg/dl
(70-99)
Procalcitonin 0.53 H ng/ml
(0.0-0.25)
POC Glucose 111 H mg/dl
(70-99)
11/17/23 08:43
11/17/23 08:43
Vital Signs
Initial and Last Documented VS:
Initial Vital Signs
Pulse Resp Pulse Ox
55 15 96
11/17/23 08:31 11/17/23 08:31 11/17/23 08:31
Last Documented Vital Signs
Temp Pulse Resp BP Pulse Ox
97.5 F 56 12 101/61 89
11/17/23 12:38 11/17/23 12:30 11/17/23 12:30 11/17/23 12:00 11/17/23 12:30
MDM/Problems Addressed
Differential Diagnosis Includes:
Sepsis, pneumonia, UTI, accidental insulin overdose
MDM/Problems Addressed:
Patient presents with acute hypoglycemia, and acute hypothermia
Chronic conditions affecting care:
Recent surgery, diabetes
Acute Exacerbation and/or Progression of Chronic Illness:
Patient's presentation likely represents acute exacerbation of chronic diabetes which has been challenging to stabilize
Acute Exacerbation and/or Progression of Chronic Illness: DM
*Pulse Oximetry
Patient hypoxic: yes
Comment: Patient hypoxic to low 80s when sleeping but comes up to mid 90s when awake
*EKG
Interpreted by ED Provider?: Yes
Interpretation: abnormal
Comparison EKG: changes noted
Rate: normal
Rhythm: sinus
[place]: normal axis
Interval: long QT
QRS Pattern: normal QRS
Ischemia: non-specific ST changes
*Mix Mill Tender Interpretation
Rate: normal
Interpretation: normal
Rhythm: sinus
*Critical Care Note
Total Time (30-74mins, 75-104mins- exclusive of procedures): Not Applicable (45 minutes)
comment:
45 minutes of critical care given to the patient including frequent reassessments of his pulse ox, heart rate and blood pressure, as well as reviewing his prior admission, reviewing his current blood work and chest x-ray
Data Reviewed
Review of Other/Old Records Reveals: Discharge Summary (Discharge summary reviewed from 10/17/2023 when patient was admitted for right tib-fib fracture and metabolic abnormalities)
Source: patient and previous hospital records
Update Note
Update Note:
11:15 AM patient with pulse ox in low 80s while sleeping. When I wake patient up, his pulse ox comes up to mid 90s. He reports he does have a history of sleep apnea. I reviewed his chest x-ray and there is no sign of pneumonia or active CHF.
11:16 AM patient found to be hypotensive. However, lactic normal. Sepsis is still on my differential given his hypothermia, unstable blood sugar, and hypotension. Blood cultures ordered and sent. Procalcitonin ordered
Given elevated prolactin, hypothermia and hypotension, decision made to treat patient for possible bacteremia and sepsis
ED Attending Note
-
Portions of this chart may have been created with voice recognition software.� Occasional wrong word or��sound alike� substitutions may have occurred due to the inherent limitations of voice recognition software.
Discharge Plan
Departure
Patient Disposition: Admit
Date of Disposition: 11/17/23
Time of Disposition: 11:03
Admit to: Telemetry
Presentation/result/management discussed w/ accepting MD/DO: Hospitalist
Patient with high blood pressure during this ER visit?: No
Condition: Critical
Discharge Problem:
Acute hypothermia, Acute metabolic encephalopathy due to hypoglycemia, Acute hypotension
Prescriptions:
No Action
atorvastatin 40 MG tablet
40 mg PO HS
carvedilol 12.5 MG tablet
12.5 mg PO DAILY
Patient Comments:
11/01/23- patient stated he only takes this 12.5mg daily and once a week he may take it twice a day
levothyroxine [Synthroid] 112 mcg Tablet
112 mcg PO DAILY
torsemide 20 mg Tablet
20 mg PO DAILY
therapeutic multivitamin Tablet
1 tab PO DAILY
hydralazine 50 mg Tablet
50 mg PO BID
dapagliflozin propanediol [Farxiga] 10 mg Tablet
10 mg PO DAILY
Entresto 49-51 mg Tablet
1 tab PO BID
aspirin 325 mg tablet,delayed release (DR/EC)
325 mg PO DAILY 16 Days Qty: 16 0RF
insulin aspart U-100 100 unit/mL (3 mL) Insulin Pen
5 unit SC DAILY@1130 Qty: 0 0RF
Levemir FlexPen 100 unit/mL (3 mL) insulin pen
10 unit SC DAILY
Levemir FlexPen 100 unit/mL (3 mL) insulin pen
20 unit SC HS
acetaminophen 325 mg tablet
650 mg PO Q6HPRN PRN (Reason: mild pain/ fever>100F)
polyethylene glycol 3350 [HealthyLax] 17 gram powder in packet
17 g PO BID
oxycodone 5 mg tablet
5 mg PO Q4HPRN PRN (Reason: severe pain)
insulin aspart U-100 100 unit/mL (3 mL) insulin pen
7 unit SC DAILY@0730,1630
calcium carbonate-vitamin D3 [Oyster Shell Calcium-Vit D3] 500 mg-5 mcg (200 unit) tablet
1 tab PO TID
magnesium hydroxide [Milk of Magnesia] 400 mg/5 mL Suspension
30 ml PO DAILY PRN (Reason: if no BM in 3 days )
bisacodyl [Dulcolax (bisacodyl)] 10 mg Suppository
10 mg ID DAILY PRN (Reason: if MOM ineffective after 24 hrs )
Fleet Enema 19-7 gram/118 mL Enema
118 ml ID DAILY PRN (Reason: if dulcolax is ineffective after 24 hrs )
Referrals:
Chang Franklin I., DO [Family Provider] -
Interventions
Interventions:
*Risk Screen - Suicide Last Done: 11/17/23 11:13
*General Assessment Last Done: 11/17/23 11:13
*Neglect/Abuse Screening Last Done: 11/17/23 11:13
*ED COVID-19 Vaccine History Last Done: 11/17/23 08:31
ED- Neurological Assessment Last Done: 11/17/23 11:15
[2023-11-17 10:37] LABS: Troponin I 0.016 ng/ml
[2023-11-17 10:52] LABS: Lactic Acid 0.9 mmol/L (0.7-2.0)
[2023-11-17] MEDS: NSS 1000 IV (11:17)
--- NOTE | 2023-11-17 11:29 | HPS.HSE ---
Family Physician
-
Family Physician: Chang Franklin
Chief Complaint
-
unresponsiveness
History of Present Illness
58M CAD stent HFmrEF DM HTN Hypothyroidism JESSENIA CPAP 3L at night RLE comminuted fracture s/p ORIF recently discharged from this facility to [facility] a few days ago returns d/t unresponsiveness. Patient reports blood sugar was 500s prior night
for which he was given increased insulin coverage. Following morning, per reports he was found cold clammy unresponsive with associate hypothermia and hypoglycemia. Received IV Glucagon at facility with subsequent improvement. Hypothermia
hypotensive on ED evaluation reported temp 92 bp low 75/58. Patient further improved with Ana Hugger SBP 120s.
Medical History
Past Medical History
Past Medical History: Reports Other (as above)
Past Surgical History: Reports None (as above)
Social History
Tobacco: Former Smoker
Alcohol: None
Drug: None
Personal:
Living: With Family
Family History
Family History: Not pertinent (reviewed)
Allergies / Home Medications
Allergies reflects when Allergies were last updated in [facility].
Home Medications with original date entered in [facility]
Allergy/Medication List:
Allergies
Allergy/AdvReac Type Severity Reaction Status Date / Time
No Known Allergies Allergy Verified 11/01/23 13:43
Home Medications
atorvastatin 40 mg tablet 40 mg PO HS High Cholesterol 02/05/22
carvedilol 12.5 mg tablet 12.5 mg PO DAILY Blood Pressure 02/05/22
dapagliflozin propanediol 10 mg tablet (Farxiga) 10 mg PO DAILY Diabetes/Heart Failure 11/01/23
hydralazine 50 mg tablet 50 mg PO BID Blood Pressure 11/01/23
levothyroxine 112 mcg tablet (Synthroid) 112 mcg PO DAILY Thyroid 11/01/23
sacubitril 49 mg-valsartan 51 mg tablet (Entresto) 1 tab PO BID Heart Failure 11/01/23
therapeutic multivitamin 1 tab PO DAILY Supplement 11/01/23
torsemide 20 mg tablet 20 mg PO DAILY Fluid Retention/Swelling 11/01/23
aspirin 325 mg tablet,delayed release 325 mg PO DAILY through 11/30/23, then take 81 mg daily 16 days #16 tabs 11/15/23
insulin aspart U-100 100 unit/mL (3 mL) subcutaneous pen 5 unit (0.05 mL) SC DAILY@1130 #0 mL 11/15/23
acetaminophen 325 mg tablet 650 mg PO Q6HPRN PRN mild pain/ fever>100F 11/17/23
bisacodyl 10 mg rectal suppository (Dulcolax (bisacodyl)) 10 mg AR DAILY PRN if MOM ineffective after 24 hrs 11/17/23
calcium carbonate 500 mg-vitamin D3 5 mcg (200 unit) tablet (Oyster Shell Calcium-Vitamin D3) 1 tab PO TID supplement 11/17/23
insulin aspart U-100 100 unit/mL (3 mL) subcutaneous pen 7 unit SC DAILY@0730,1630 diabetes 11/17/23
insulin detemir U-100 100 unit/mL (3 mL) subcutaneous pen (Levemir FlexPen) 10 unit SC DAILY diabetes 11/17/23
insulin detemir U-100 100 unit/mL (3 mL) subcutaneous pen (Levemir FlexPen) 20 unit SC HS diabetes 11/17/23
magnesium hydroxide 400 mg/5 mL oral suspension (Milk of Magnesia) 30 ml PO DAILY PRN if no BM in 3 days 11/17/23
oxycodone 5 mg tablet 5 mg PO Q4HPRN PRN severe pain 11/17/23
polyethylene glycol 3350 17 gram oral powder packet (HealthyLax) 17 g PO BID constipation 11/17/23
sodium phosphates 19 gram-7 gram/118 mL enema (Fleet Enema) 118 ml AR DAILY PRN if dulcolax is ineffective after 24 hrs 11/17/23
Review of Systems
-
A 12 point ROS was completed and negative except as noted: Yes
Constitutional: Reports Other (as below)
Physical Exam
Vital Signs
Vital Signs
Pulse Resp Pulse Ox
55 15 96
11/17/23 08:31 11/17/23 08:31 11/17/23 11:16
Physical Exam
General: Other (as below)
Laboratory Results
-
11/17/23 08:43
11/17/23 08:43
Laboratory Results
Lactic Acid 0.9 mmol/L (0.7-2.0) 11/17/23 10:30
Total Bilirubin 0.7 mg/dl (0.2-1.3) 11/17/23 08:43
AST 36 U/L (17-59) 11/17/23 08:43
ALT 11 U/L (0-50) 11/17/23 08:43
Alkaline Phosphatase 123 U/L (38-126) 11/17/23 08:43
Troponin I 0.016 ng/ml 11/17/23 10:06
Impression/Plan
-
ROS
General: Denies fever night sweats unexpected weight loss reports chills
Neuro: Denies seizure shaking dizziness vertigo reports loss of consciousness
Psych: denies depression hallucinations confusion manic episodes
Endocrine: Denies polyuria polydipsia polyphagia heat/cold intolerance
HEENT: Denies blindness visual disturbances epistaxis
Pulmonary: denies coughing hemoptysis sneezing sob dyspnea on exertion
Cardiovascular: denies chest pain palpitations leg swelling
Hematology: denies signs symptoms of anemia easy bruising/bleeding
Gastrointestinal: denies nausea vomiting diarrhea constipation hematemesis hematochezia melena
Genito-Urinary: denies retention incontinence dysuria
Musculoskeletal: denies joint pain weakness
Dermatology: denies rash laceration bruising
Physical Exam
General: No pallor, cyanosis, or jaundice.
HEENT: Throat clear. PERRLA Normocephalic atraumatic
NECK: Supple. No JVD Carotid Bruits
RESPIRATORY: Lungs clear to auscultation. No crackles wheezes stridor
CVS: S1, S2 normal. RRR. No murmur, rub or gallop.
ABDOMEN: Soft, non-tender. No distension. BS+/normal.
EXTREMITIES: Right lower extremity splint dressing in place
FORM BUILDING SUPERVISOR: AOx3.
IMPRESSION:
58M CAD stent HFmrEF DM HTN Hypothyroidism JESSENIA CPAP 3L at night RLE comminuted fracture s/p ORIF recently discharged from this facility to [facility] a few days ago returns d/t unresponsiveness. Patient reports blood sugar was 500s prior night
for which he was given increased insulin coverage. Following morning, per reports he was found cold clammy unresponsive with associate hypothermia and hypoglycemia. Received IV Glucagon at facility with subsequent improvement. Hypothermia
hypotensive on ED evaluation reported temp 92 bp low 75/58. Patient further improved with Ana Hugger SBP 120s.
PLAN:
Acute Metabolic Encephalopathy Hypotension Hypothermia likely 2/2 Iatrogenic Hypoglycemia
-improved with resolution hypoglycemia and ana hugger for hypothermia
-doubt infectious etiology, Procalcitonin elevation likely d/t renal insufficiency, afebrile, no leukocytosis, patient denies prodromal symptoms of systemic infection
-IMU admit
# Right tib-fib fracture s/p ORIF right tibial IM nail 11/02
-strict NWB to RLE w/ assistive device
-ASA 325 mg daily x4 weeks DVT ppx through 11/30/23, then aspirin 81 mg daily
-Splint in place 2wks until post-op visit repeat X-rays and skin clip removal
# Hypertension
hypotensive on admission improved with resolution hypothermia.
Continue Coreg Entresto Torsemide with holding parameters
CKDIII
initial Cr 2.0 improve from prior values
will cont to monitor
limit nephrotoxic agents as able
# Chronic heart failure with reduced ejection fraction
Euvolemic at this time
Continue beta-blockers.� Entresto and Torsemide with holding parameters as above
Recent ECHO appreciated EF 45-50% stage I diastolic dysfunction no significant valve abn's
# Type 2 diabetes- Brittle Diabetic
Continue insulin regimen and Farxiga
Diabetes GREASE PACKER consult
# Coronary artery disease with stents
Continue aspirin, statin, Coreg
# Recent admission at outside hospital for acute respiratory failure/aspiration pneumonia/Right pleural effusion-negative for malignancy
# Hypothyroidism-continue Synthroid
# Anemia of Chronic Disease
#Anemia d/t chronic renal insufficiency
significantly improved from prior values, hgb 13.4 (patient typically in 8 range) possibly hemoconcentrated
monitor H&H
#Vitamin D Deficiency
Vit D supplementation
# Hyperlipidemia
Continue atorvastatin
# Pulmonary nodules
Outpatient follow-up
DVT prophylaxis� ASA
Full code
PT/OT eval
discussed with patient and his .
I spent a total of 80 minutes with the patient or on the floor. More than 50% of this time involved counseling and coordination of care.
[2023-11-17 12:01] LABS: Procalcitonin 0.53 ng/ml (0.0-0.25)
[2023-11-17] MEDS: ZOSYN 100 IV (12:44)
--- NOTE | 2023-11-17 13:27 | CM ---
CM met with patient in room. Patient presenting from [facility]. Patient is agreeable to return to [facility]. Referral sent via Care port. Pending PT recommendations.
PLAN: Return to after auth obtained.
--- NOTE | 2023-11-17 13:32 | PN.DE.MGMTRT ---
Insulin Management
- -
11/17/2023: Diabetes Management Consult
58 year old male readmitted d/t an episode of unresponsiveness. PMH includes: HTN, CAD s/p stent, CHF, HLD, JESSENIA on 3 L of oxygen at night, H/o pleural effusion and T2DM, A1C 7.9%. Pt was recently d/c'd from to [facility] on 11/12.
Per chart review, pt's blood sugar was 500s night before admission and was treated with increased dose of insulin. The following morning, pt was found unresponsive and was noted for hypothermia and hypoglycemia. He was treated with IV Glucagon at
facility with subsequent improvement.
Of note, pt's d/c diabetes meds included Levemir 8 units @ HS, NovoLog 7 units with breakfast and dinner, 5 units with lunch and Farxiga 10mg daily.
Pt seen in the ED, awake, A/O x3, resting in bed, offers no complaints. He is able to participate and provide details that led up to his admission.
He states that he was given 20 units of Levemir for a blood sugar of ~500 at dinner time and continues to say that 'it was Negligent'
His last blood sugar was 111 @0822. He had a regular lunch tray and consumed 100% of his meal, no accuchek done prior to lunch.
Spoke to ED staff and requested for accuchek now.
Will start Levemir 8 units BID, 1st dose @ HS. Start NovoLog 5 units AC. Farxiga 10mg daily on hold.
Cont low corrective insulin with meals, change diet to 1800 araceli.
Diabetes History
- -
Type of Diabetes: 2 requiring insulin
Pre-Admission Diabetes Regimen
11/17/23
08:43
Creatinine 2.0 H
Insulin Pump Settings
IP Diabetes Regimen
11/17/23 11/17/23
08:29 08:43
Glucose 122 H
POC Glucose 111 H
Patient Education
[2023-11-17 14:07] LABS: Urine Albumin 1+ (Neg - Trace); Urine Bilirubin Negative (Negative); Urine Character Clear (Clear); Urine Color Yellow; Urine Glucose 3+ (Negative); Urine Ketone Negative (Negative); Urine Leukocyte Negative (Negative); Urine Nitrite Negative (Negative); Urine Occult Blood Negative (Negative); Urine Urobilinogen Negative (Neg - 1+)
[2023-11-17] MEDS: VANCOCIN 300 ML IV (14:10)
[2023-11-17] MEDS: VANCOCIN 300 MG IV (14:10)
[2023-11-17 14:26] LABS: Glucose - Point of Care 293 mg/dl (70-99)
[2023-11-17 14:31] LABS: Urine Red Blood Cell 0-2 /HPF (0-2); Urine White Cell 0-2 /HPF (0-5)
[2023-11-17] MEDS: APRESOLINE 5 MG IV (16:34)
[2023-11-17 16:50] LABS: Glucose - Point of Care 238 mg/dl (70-99)
--- NOTE | 2023-11-17 16:56 | PTCARENOTE ---
Addendum entered by Alondra Arzola RN 11/17/23 18:19:
BP 183/90.
Original Note:
Received patient on admission from ED via stretcher at approximately 14:40. Patient pulled over to bed x4 assist. BP 200/93, recycled to verify 202/92; manual BP 200/96. Dr Pichardo notified via tiger text and prn dose of hydralazine given as per his
request; patient asymptomatic. Accu check done at 16:39 as patient ordered dinner. Pharmacy verified meds and there is an outstanding now order for novolog 4 units from 14:49; there is also a scheduled order for novolog 5 units with meals and
sliding scale order. Reviewed with Elham Dawson NP, diabetes coordinator, who instructed to d/c the now order and give the scheduled 5 units novolog. Pharmacist made aware.
[2023-11-17] MEDS: NOVOLOG FLEXPEN 5 UNITS SC (17:50)
[2023-11-17] MEDS: NOVOLOG FLEXPEN-LOW RESISTANCE 2 UNITS SC (17:50)
[2023-11-17] MEDS: APRESOLINE 25 MG PO (20:13)
[2023-11-17] MEDS: COREG 12.5 MG PO (20:13)
[2023-11-17] MEDS: ENTRESTO 49 MG/51 MG 1 TAB PO (20:13)
[2023-11-17] MEDS: MIRALAX 17 GRAMS PO (20:14)
[2023-11-17] MEDS: LIPITOR 40 MG PO (20:14)
--- NOTE | 2023-11-17 21:08 | PTCARENOTE ---
Received pt at change of shift. Pt drowsy but easily arousable. Pt offers no complaints. Able to take all medications. BP 144/66 HR 64. Pt resting in bed with call grover in reach.
[2023-11-17 21:39] LABS: Glucose - Point of Care 175 mg/dl (70-99)
[2023-11-17] MEDS: TYLENOL 650 MG PO (22:41)
[2023-11-17] MEDS: LEVEMIR 0.0800000000000000017 UNITS SC (22:41)
[2023-11-18] VITALS (17 sets, daily range): BP systolic 134–192; BP diastolic 72–107; PULSE 61–66; O2SAT 93–98; BMI 23.0
[2023-11-18 04:28] LABS: Hematocrit 26.8 % (39.0-52.0); Mean Corp Hgb Conc. 34.7 g/dL (33.0-37.0); Mean Corpuscular Hgb 32.2 pg (27.0-31.0); Mean Corpuscular Volume 92.7 fL (80.0-94.0); Mean Platelet Volume 8.9 fL (7.4-10.4); Platelet Count 227 10^3/uL (130-400); Red Blood Cell Count 2.89 10^6/uL (4.70-6.10); Red Cell Dist. Width 14.3 % (11.5-14.5); White Blood Cell Count 5.4 10^3/uL (4.8-10.8)
[2023-11-18 04:32] LABS: Hemoglobin 9.3 g/dL (13.0-18.0)
[2023-11-18 04:53] LABS: Blood Urea Nitrogen 55 mg/dl (9-20); Calcium 7.8 mg/dl (8.4-10.2); Carbon Dioxide 29 mmol/L (22-30); Chloride 103 mmol/L (98-107); Estimated Creatinine Clearance 36 ml/min; Glucose 70 mg/dl (70-99); Magnesium 2.6 mg/dl (1.6-2.3); Sodium 136 mmol/L (135-145); eGFR 36.04
[2023-11-18] MEDS: SYNTHROID 112 MCG PO (05:17)
--- NOTE | 2023-11-18 05:34 | PTCARENOTE ---
Pt glucose with morning labs resulted at 70. Gave 4 oz orange juice to prevent a further drop in glucose. Pt agreeable and appreciative.
--- NOTE | 2023-11-18 07:12 | W.PN.HOSP.TC ---
Today's Communication/Plan
-
Blood pressure control
glycemic control
replete Calcium
Nocturnal Sleep Study
stable for downgrade to Telemetry
Assessment / Plan
Assessment / Plan
Physical Exam
General: No pallor, cyanosis, or jaundice.
HEENT: Throat clear. PERRLA Normocephalic atraumatic
NECK: Supple. No JVD Carotid Bruits
RESPIRATORY: Lungs clear to auscultation. No crackles wheezes stridor
CVS: S1, S2 normal. RRR.� No murmur, rub or gallop.
ABDOMEN: Soft, non-tender. No distension. BS+/normal.
EXTREMITIES: Right lower extremity splint dressing in place
GEM STONE CUTTER: AOx3.
IMPRESSION:
58M CAD stent HFmrEF DM HTN Hypothyroidism RLE comminuted fracture s/p ORIF recently discharged from this facility to [facility] a few days ago returns d/t unresponsiveness.� Patient reports blood sugar was 500s prior night for which he was
given increased insulin coverage.� Following morning, per reports he was found cold clammy unresponsive with associate hypothermia and hypoglycemia.� Received IV Glucagon at facility with subsequent improvement.� Hypothermia hypotensive on ED
evaluation reported temp 92 bp low 75/58.� Patient further improved with Ana Hugger SBP 120s.
PLAN:
Acute Metabolic Encephalopathy Hypotension Hypothermia likely 2/2 Iatrogenic Hypoglycemia
-improved with resolution hypoglycemia and ana hugger for hypothermia
-doubt infectious etiology, Procalcitonin elevation likely d/t renal insufficiency, afebrile, no leukocytosis, patient denies prodromal symptoms of systemic infection
-IMU admit
# Right tib-fib fracture s/p ORIF right tibial IM nail 11/02
-strict NWB to RLE w/ assistive device
-ASA 325 mg daily x4 weeks DVT ppx through 11/30/23, then aspirin 81 mg daily
-Ortho follow up eval appreciated, hannah removed
-repeat XR RLE appreciated Stable postsurgical change of the right tibia. Improved alignment of distal right tibial fracture
# Hypertension
hypotensive on admission improved with resolution hypothermia.�
Continue Coreg Entresto Torsemide with holding parameters
Home Hydralazine resumed at reduced dose eventually titrated back up to 50 mg BID
CKDIII
Cr stable
will cont to monitor
limit nephrotoxic agents as able
# Chronic heart failure with reduced ejection fraction
Euvolemic at this time
Continue beta-blockers.� Entresto and Torsemide with holding parameters as above
Recent ECHO appreciated EF 45-50% stage I diastolic dysfunction no significant valve abn's
# Type 2 diabetes- Brittle Diabetic
Continue insulin regimen and Farxiga
Diabetes RESOURCE AGENT consult appreciated
#Nocturnal desaturation
[correction to prior documentation, patient denies ever having CPAP at home but endorses having supplemental bedtime oxygen]
noted desaturating overnight
nocturnal saturation study ordered
likely would benefit from outpatient sleep study
# Coronary artery disease with stents
Continue aspirin, statin, Coreg
# Hypothyroidism-continue Synthroid
# Anemia of Chronic Disease
#Anemia d/t chronic renal insufficiency
H&H stable
#Vitamin D Deficiency
Vit D supplementation
#Hypocalcemia
monitor and replete as necessary
# Hyperlipidemia
Continue atorvastatin
# Pulmonary nodules
Outpatient follow-up
DVT prophylaxis� ASA
Full code
PT/OT eval
Medically stable for downgrade to Tele
Discussed with patient. Attempted to contact Lina with update however no answer received, message left with call back information.
I spent a total of �60 � minutes with the patient or on the floor. More than 50% of this time involved counseling and coordination of care.
Anticipated Discharge: 24 - 48 hours
Subjective/Interval History
-
Date of Service: November 18, 2023
Hypoglycemia noted this morning Sugar 55 however patient asymptomatic. Hypoglycemia resolved with juice. Overall patient reports feeling well. Noted desaturation overnight requiring nasal cannula supplementation.
Objective Data
-
Labs:
Laboratory Results
11/18/23
04:11
WBC 5.4
Hgb 9.3 L D
Hct 26.8 L
Plt Count 227
Sodium 136
Potassium 4.0
Chloride 103
Carbon Dioxide 29
BUN 55 H
Creatinine 2.1 H
Glucose 70
Calcium 7.8 L
Vital Signs:
Vital Signs
Temp Pulse Resp BP Pulse Ox
97.5 F 67 23 160/82 93
11/18/23 03:15 11/18/23 06:00 11/18/23 06:00 11/18/23 06:00 11/18/23 06:00
I&O
11/17/23 11/18/23 11/19/23
06:59 06:59 06:59
Output Total 900 / 900
Balance -900 / -900
[2023-11-18 07:57] LABS: Glucose - Point of Care 55 mg/dl (70-99)
--- NOTE | 2023-11-18 08:13 | PN.DE.MGMTRT ---
Insulin Management
- -
11/18/2023 Diabetes Management Consult
Patient [facility] for [facility]cemia [facility] He did receive a significant amount of insulin for elevated glucose prior to this happening. Patient is known from recent admission for fractured tib-fib. PMH CAD,
hypothyroid, HLD, sleep apnea, neuropathy, HTN. Regimen before admission was levemir 8units BID and novolog 10 to 12 units AC.
Patient is awake alert and oriented eating breakfast. Patient did receive 8 units levemir @ HS, glucose this AM 54. Will stop levemir completely and start AM lantus 10 units. Will continue novolog 5 units AC with low corrective insulin.
Discussed insulin change with patient, he is agreeable.
Diabetes History
- -
Type of Diabetes: 2 requiring insulin
Pre-Admission Diabetes Regimen
11/17/23 11/18/23
08:43 04:11
Creatinine 2.0 H 2.1 H
Insulin Pump Settings
IP Diabetes Regimen
11/17/23 11/17/23 11/17/23
08:29 08:43 14:24
Glucose 122 H
POC Glucose 111 H 293 H
11/17/23 11/17/23 11/18/23
16:39 21:26 04:11
Glucose 70
POC Glucose 238 H 175 H
11/18/23
07:44
Glucose
POC Glucose 55 L*
Patient Education
[2023-11-18 08:18] LABS: Glucose - Point of Care 100 mg/dl (70-99)
[2023-11-18] MEDS: VITAMIN D3 (cholecalciferol) 20 MCG PO (08:30)
[2023-11-18] MEDS: CALCIUM GLUCONATE 100 IV (08:30)
[2023-11-18] MEDS: DEMADEX 20 MG PO (08:30)
[2023-11-18] MEDS: APRESOLINE 25 MG PO (08:30)
[2023-11-18] MEDS: THERAGRAN 1 TABLET PO (08:31)
[2023-11-18] MEDS: NOVOLOG FLEXPEN-LOW RESISTANCE SC ×2 (08:31→16:51)
[2023-11-18] MEDS: MIRALAX 17 GRAMS PO ×2 (08:31→21:25)
[2023-11-18] MEDS: COREG 12.5 MG PO ×2 (08:31→21:24)
[2023-11-18] MEDS: ENTRESTO 49 MG/51 MG 1 TAB PO ×2 (08:31→21:24)
[2023-11-18] MEDS: ASPIRIN ENTERIC COATED 325 MG PO (08:31)
[2023-11-18] MEDS: NOVOLOG FLEXPEN 5 UNITS SC ×3 (08:43→17:35)
[2023-11-18] MEDS: TYLENOL 650 MG PO (08:51)
[2023-11-18] MEDS: FARXIGA 10 MG PO (08:52)
--- NOTE | 2023-11-18 09:13 | PTCARENOTE ---
Addendum entered by Alondra Arzola RN 11/18/23 10:58:
Patient stated he thought he was supposed to have his dressing taken off and hannah/sutures out today. Dr Pichardo was made aware; R leg xray and ortho consult ordered.
Original Note:
Assumed care of patient at beginning of this shift from previous RN. 04:11 BMP glucose 70. Accu check at 07:44; patient asymptomatic. 4oz OJ given; repeat accu check at 08:07 100. Patient stated he had small cup of orange juice (styrofoam cup) about
45mins prior to initial accu check. Patient ate 100% of breakfast. Sole Garcia on unit to see patient and made aware. Levamir d/c'd and lantus ordered. Reviewed morning insulins with Kiera Garcia; instructed to give mealtime novolog 5 units and
start lantus this morning. Patient updated. BP elevated this morning prior to po meds: 181/91; HR 65-70 NSR. POx 93-95% on RA. See worklist for full assessment and vital signs; see MAR for med administration.
[2023-11-18] MEDS: LANTUS 0.100000000000000006 UNITS SC (09:43)
--- NOTE | 2023-11-18 09:50 | PTCARENOTE ---
BP 192/107 working with PT/OT; recheck 151/84. Asymptomatic throughout.
--- NOTE | 2023-11-18 09:54 | PTCARENOTE ---
Per nursing report this morning, POx dropped to 80s and was put on 2L n/c. POx while awake currently 95%. Order in computer for CPAP own unit. Patient stated he does not have a CPAP machine; he said he was wearing oxygen in the hospital during his
previous stay, but that it's since been discontinued. Dr Pichardo on unit and made aware of all.
[2023-11-18 10:16] LABS: Glucose - Point of Care 150 mg/dl (70-99)
[2023-11-18 12:24] LABS: Glucose - Point of Care 207 mg/dl (70-99)
[2023-11-18] MEDS: NOVOLOG FLEXPEN-LOW RESISTANCE 2 UNITS SC (12:28)
--- NOTE | 2023-11-18 13:52 | W.PN.UPDATE ---
Update Note
Progress Note Update
[facility] from RIGHT IM tibial rodding (November 21 via [place]). Has been strict NWB in his splint. Work-up/Tx ongoing. Splint/dressings removed. All incisions well approximated
with hannah. No signs of infection. Compartments all supple. Calf soft, nontender. DNVI RLE. Perkins were removed from his RLE. Steri-strips placed. soft dressing and splint reapplied. Will remain NWB, however Xrays look good. Consult placed to
Pietro for [place] CAM boot. When boot placed the patient may progress to TTWB on walker. Requested RN reach out for new order when boot is placed. If boot can not be placed prior to D/c would recommend outpatient follow-up in 1-2 weeks
([phone]). Appreciate the [facility] team with their continued care.
[2023-11-18 16:59] LABS: Glucose - Point of Care 137 mg/dl (70-99)
[2023-11-18] MEDS: APRESOLINE 5 MG IV (18:13)
--- NOTE | 2023-11-18 18:23 | PTCARENOTE ---
Patient being transferred to [facility]; report given to Rocío. Patient given IV hydralazine 5mg prn for BP 190/98; Rocío updated.
[2023-11-18 21:08] LABS: Glucose - Point of Care 95 mg/dl (70-99)
[2023-11-18] MEDS: APRESOLINE 50 MG PO (21:24)
[2023-11-18] MEDS: LIPITOR 40 MG PO (21:25)
[2023-11-19] MEDS: TYLENOL 650 MG PO ×3 (00:18→22:13)
[2023-11-19 03:23] VITALS: BP 149/78
[2023-11-19] MEDS: SYNTHROID 112 MCG PO (06:08)
[2023-11-19 07:11] VITALS: BP 165/91
--- NOTE | 2023-11-19 07:23 | W.PN.HOSP.TC ---
Today's Communication/Plan
-
Blood pressure control
glycemic control
Scheduled Calcium supplementation
cont O2 supplementation at bedtime
Discharge planning SNF rehab
Assessment / Plan
Assessment / Plan
Physical Exam
General: No pallor, cyanosis, or jaundice.
HEENT: Throat clear. PERRLA Normocephalic atraumatic
NECK: Supple. No JVD Carotid Bruits
RESPIRATORY: Lungs clear to auscultation. No crackles wheezes stridor
CVS: S1, S2 normal. RRR.� No murmur, rub or gallop.
ABDOMEN: Soft, non-tender. No distension. BS+/normal.
EXTREMITIES: Right lower extremity splint dressing in place
HEAD OF BIOLOGY: AOx3.
IMPRESSION:
58M CAD stent HFmrEF DM HTN Hypothyroidism RLE comminuted fracture s/p ORIF recently discharged from this facility to [facility] a few days ago returns d/t unresponsiveness.� Patient reports blood sugar was 500s prior night for which he was
given increased insulin coverage.� Following morning, per reports he was found cold clammy unresponsive with associate hypothermia and hypoglycemia.� Received IV Glucagon at facility with subsequent improvement.� Hypothermia hypotensive on ED
evaluation reported temp 92 bp low 75/58.� Patient further improved with Ana Hugger SBP 120s.
PLAN:
Acute Metabolic Encephalopathy Hypotension Hypothermia likely 2/2 Iatrogenic Hypoglycemia
-improved with resolution hypoglycemia and ana hugger for hypothermia
-doubt infectious etiology, Procalcitonin elevation likely d/t renal insufficiency, afebrile, no leukocytosis, patient denies prodromal symptoms of systemic infection
-IMU admit since downgraded to Tele
# Right tib-fib fracture s/p ORIF right tibial IM nail 11/02
-strict NWB to RLE w/ assistive device
-ASA 325 mg daily x4 weeks DVT ppx through 11/30/23, then aspirin 81 mg daily
-Ortho follow up eval appreciated, hannah removed
-repeat XR RLE appreciated Stable postsurgical change of the right tibia. Improved alignment of distal right tibial fracture
# Hypertension
hypotensive on admission improved with resolution hypothermia.�
Continue Coreg Entresto Torsemide with holding parameters
Home Hydralazine resumed at reduced dose eventually titrated back up to 50 mg BID
CKDIII
Cr stable
will cont to monitor
limit nephrotoxic agents as able
# Chronic heart failure with reduced ejection fraction
Euvolemic at this time
Continue beta-blockers.� Entresto and Torsemide with holding parameters as above
Recent ECHO appreciated EF 45-50% stage I diastolic dysfunction no significant valve abn's
# Type 2 diabetes- Brittle Diabetic
Continue insulin regimen and Farxiga
Diabetes CONSTRUCTION INSPECTOR consult appreciated
#Nocturnal desaturation
noted desaturating overnight
nocturnal saturation study appreciated significant desaturation qualifies for home oxygen at bedtime, patient endorses already having at home
likely would benefit from outpatient sleep study
cont nasal cannula supplementation bedtime
# Coronary artery disease with stents
Continue aspirin, statin, Coreg
# Hypothyroidism-continue Synthroid
# Anemia of Chronic Disease
#Anemia d/t chronic renal insufficiency
H&H stable
#Vitamin D Deficiency
Vit D supplementation
#Hypocalcemia
monitor and replete as necessary
Scheduled Calcium supplementation
# Hyperlipidemia
Continue atorvastatin
# Pulmonary nodules
Outpatient follow-up
DVT prophylaxis� ASA
Full code
PT/OT eval appreciated
I spent a total of �56 � minutes with the patient or on the floor. More than 50% of this time involved counseling and coordination of care.
Anticipated Discharge: 24 - 48 hours
Subjective/Interval History
-
Date of Service: November 19, 2023
Reports feeling well no new acute issues.
Objective Data
-
Labs:
Laboratory Results
11/19/23
07:10
WBC Pending
Hgb Pending
Hct Pending
Plt Count Pending
Sodium Pending
Potassium Pending
Chloride Pending
Carbon Dioxide Pending
BUN Pending
Creatinine Pending
Glucose Pending
Calcium Pending
Vital Signs:
Vital Signs
Temp Pulse Resp BP Pulse Ox
98.6 F 79 18 149/78 95
11/19/23 03:23 11/19/23 03:23 11/19/23 03:23 11/19/23 03:23 11/19/23 03:23
I&O
11/18/23 11/19/23 11/20/23
06:59 06:59 06:59
Intake Total 240 / 240
Output Total 900 / 900 775 / 775
Balance -900 / -900 -535 / -535
[2023-11-19 07:35] LABS: Glucose - Point of Care 164 mg/dl (70-99)
[2023-11-19 08:08] VITALS: BMI 22.9
[2023-11-19] MEDS: NOVOLOG FLEXPEN 5 UNITS SC ×3 (08:51→18:02)
[2023-11-19] MEDS: NOVOLOG FLEXPEN-LOW RESISTANCE 1 UNITS SC ×2 (08:51→14:29)
[2023-11-19 08:55] LABS: Hematocrit 28.3 % (39.0-52.0); Hemoglobin 9.3 g/dL (13.0-18.0); Mean Corp Hgb Conc. 32.9 g/dL (33.0-37.0); Mean Corpuscular Hgb 31.5 pg (27.0-31.0); Mean Corpuscular Volume 95.9 fL (80.0-94.0); Mean Platelet Volume 9.6 fL (7.4-10.4); Platelet Count 243 10^3/uL (130-400); Red Blood Cell Count 2.95 10^6/uL (4.70-6.10); Red Cell Dist. Width 14.4 % (11.5-14.5); White Blood Cell Count 4.7 10^3/uL (4.8-10.8)
[2023-11-19] MEDS: MIRALAX 17 GRAMS PO ×2 (09:13→19:49)
[2023-11-19] MEDS: LANTUS 0.100000000000000006 UNITS SC (09:14)
[2023-11-19] MEDS: VITAMIN D3 (cholecalciferol) 20 MCG PO (09:15)
[2023-11-19] MEDS: APRESOLINE 50 MG PO ×2 (09:15→19:49)
[2023-11-19] MEDS: ASPIRIN ENTERIC COATED 325 MG PO (09:16)
[2023-11-19] MEDS: ENTRESTO 49 MG/51 MG 1 TAB PO ×2 (09:16→19:49)
[2023-11-19] MEDS: THERAGRAN 1 TABLET PO (09:17)
[2023-11-19] MEDS: DEMADEX 20 MG PO (09:17)
[2023-11-19] MEDS: FARXIGA 10 MG PO (09:18)
[2023-11-19] MEDS: COREG 12.5 MG PO ×2 (09:18→19:49)
--- NOTE | 2023-11-19 09:27 | PN.DE.MGMTRT ---
Insulin Management
- -
11/19/2023 Diabetes Management Follow up
Patient admitted for hypoglycemia after being found unresponsive from [place]. He did receive a significant amount of insulin for elevated glucose prior to this happening. Patient is known from recent admission for fractured tib-fib. PMH CAD,
hypothyroid, HLD, sleep apnea, neuropathy, HTN. Regimen before admission was levemir 8units BID and novolog 10 to 12 units AC.
Patient is awake alert and oriented eating breakfast. Yesterday patient had glucose 54 in AM. Levemir 8 units BID was stopped (will be off market end of October). Lantus 10 units daily was started. AC novolog continued at 5 units. Glucose
yesterday normalized at 137 pre dinner and 95 @ HS. Fasting this AM 164, acceptable due to labile glucose. Will make no change to current regimen Lantus 10 units in AM with 5 units novolog AC and Farxiga 10 mg daily.
Patient will need RX for lantus, placed in ambulatory orders today not transmitted.
Diabetes History
- -
Type of Diabetes: 2 requiring insulin
Pre-Admission Diabetes Regimen
Insulin Pump Settings
IP Diabetes Regimen
11/18/23 11/18/23 11/18/23
10:04 12:10 16:48
POC Glucose 150 H 207 H 137 H
11/18/23 11/19/23
21:07 07:33
POC Glucose 95 164 H
Meal type: Breakfast
Amount consumed: 100%
Patient Education
[2023-11-19 09:28] LABS: Blood Urea Nitrogen 55 mg/dl (9-20); Calcium 7.9 mg/dl (8.4-10.2); Carbon Dioxide 29 mmol/L (22-30); Chloride 101 mmol/L (98-107); Estimated Creatinine Clearance 36 ml/min; Glucose 158 mg/dl (70-99); Magnesium 2.5 mg/dl (1.6-2.3); Sodium 133 mmol/L (135-145); eGFR 36.04
[2023-11-19 11:28] VITALS: BP 137/73
[2023-11-19 11:36] LABS: Glucose - Point of Care 195 mg/dl (70-99)
[2023-11-19] MEDS: OSCAL CAL 500 1000 MG PO ×2 (14:29→19:49)
[2023-11-19 15:21] VITALS: BP 151/77
--- NOTE | 2023-11-19 15:43 | CM ---
ict managers reviewed patient's chart and met with patient and received a consult from patient's physician that patient is hoping for an alternative skilled facility at discharge, patient was admitted from [facility], patient is agreeable to
[facility], and [facility]. [facility] Nadeem trimming caser Freda [phone].
Patient also has claim through car insurance
[employer]
Martina Carpenter
[phone]
Claim# [id number]
Plan; Skilled placement.
[2023-11-19 17:57] LABS: Glucose - Point of Care 122 mg/dl (70-99)
[2023-11-19] MEDS: NOVOLOG FLEXPEN-LOW RESISTANCE SC (18:00)
[2023-11-19 19:39] VITALS: BP 172/88
[2023-11-19] MEDS: LIPITOR 40 MG PO (20:55)
[2023-11-19 21:48] LABS: Glucose - Point of Care 105 mg/dl (70-99)
[2023-11-19 23:32] VITALS: BP 138/75
[2023-11-20] VITALS (7 sets, daily range): BP systolic 154–176; BP diastolic 76–91
[2023-11-20] MEDS: SYNTHROID 112 MCG PO (06:12)
[2023-11-20 07:17] LABS: Glucose - Point of Care 120 mg/dl (70-99)
--- NOTE | 2023-11-20 07:48 | PN.DE.MGMTRT ---
Insulin Management
- -
11/20/2023 Diabetes Management F/U:
Patient admitted for hypoglycemia [place]. He did receive a significant amount of insulin for elevated glucose prior to this happening. Patient is known from recent admission for fractured tib-fib. PMH CAD,
hypothyroid, HLD, sleep apnea, neuropathy, HTN.
Regimen before admission was Levemir 8units BID and NovoLog 10 to 12 units AC.
Pt was transitioned from Levemir to Lantus on 11/17 due to recurrent hypoglycemia. No more episodes of Hypo since switching to Lantus
He is awake, A/O x3, sitting up comfortably in bed, offers no complaints.
Glucose stable and in range. Will make no change to current regimen: Lantus 10 units in AM, NovoLog 5 units AC and Farxiga 10 mg daily.
Patient will need RX for Lantus, placed in ambulatory orders but not transmitted.
Diabetes History
- -
Type of Diabetes: 2 requiring insulin
Pre-Admission Diabetes Regimen
11/19/23
07:10
Creatinine 2.1 H
Insulin Pump Settings
IP Diabetes Regimen
11/19/23 11/19/23 11/19/23
07:10 11:35 17:56
Glucose 158 H
POC Glucose 195 H 122 H
11/19/23 11/20/23
21:46 07:07
Glucose
POC Glucose 105 H 120 H
Meal type: Dinner
Meal type: Lunch
Meal type: Breakfast
Amount consumed: 80%
Amount consumed: 80%
Amount consumed: 100%
Patient Education
--- NOTE | 2023-11-20 07:58 | W.PN.HOSP.TC ---
Today's Communication/Plan
-
Blood pressure control, Coreg increased
glycemic control
Scheduled Calcium supplementation
cont O2 supplementation at bedtime
Medically stable for discharge pending SNF rehab placement
Assessment / Plan
Assessment / Plan
Physical Exam
General: No pallor, cyanosis, or jaundice.
HEENT: Throat clear. PERRLA Normocephalic atraumatic
NECK: Supple. No JVD Carotid Bruits
RESPIRATORY: Lungs clear to auscultation. No crackles wheezes stridor
CVS: S1, S2 normal. RRR.� No murmur, rub or gallop.
ABDOMEN: Soft, non-tender. No distension. BS+/normal.
EXTREMITIES: Right lower extremity splint dressing in place
DRAIN TILE PRESS OPERATOR: AOx3.
IMPRESSION:
58M CAD stent HFmrEF DM HTN Hypothyroidism RLE comminuted fracture s/p ORIF recently discharged from this facility to [facility] a few days ago returns d/t unresponsiveness.� Patient reports blood sugar was 500s prior night for which he was
given increased insulin coverage.� Following morning, per reports he was found cold clammy unresponsive with associate hypothermia and hypoglycemia.� Received IV Glucagon at facility with subsequent improvement.� Hypothermia hypotensive on ED
evaluation reported temp 92 bp low 75/58.� Patient further improved with Ana Hugger SBP 120s.
PLAN:
Acute Metabolic Encephalopathy Hypotension Hypothermia likely 2/2 Iatrogenic Hypoglycemia
-improved with resolution hypoglycemia and ana hugger for hypothermia
-doubt infectious etiology, Procalcitonin elevation likely d/t renal insufficiency, afebrile, no leukocytosis, patient denies prodromal symptoms of systemic infection
-IMU admit since downgraded to Tele
# Right tib-fib fracture s/p ORIF right tibial IM nail 11/02
-strict NWB to RLE w/ assistive device
-ASA 325 mg daily x4 weeks DVT ppx through 11/30/23, then aspirin 81 mg daily
-Ortho follow up eval appreciated, hannah removed
-repeat XR RLE appreciated Stable postsurgical change of the right tibia. Improved alignment of distal right tibial fracture
# Hypertension
hypotensive on admission improved with resolution hypothermia.�
Continue Coreg Entresto Torsemide with holding parameters
Home Hydralazine resumed at reduced dose eventually titrated back up to 50 mg BID
Coreg increased to 25 mg BID from 12.5 for better blood pressure control, cont holding parameters.
CKDIII
Cr stable
will cont to monitor
limit nephrotoxic agents as able
# Chronic heart failure with reduced ejection fraction
Euvolemic at this time
Continue beta-blockers.� Entresto and Torsemide with holding parameters as above
Recent ECHO appreciated EF 45-50% stage I diastolic dysfunction no significant valve abn's
# Type 2 diabetes- Brittle Diabetic
Continue insulin regimen and Farxiga
Diabetes CERTIFIED SURGICAL TECHNICIAN consult appreciated
#Nocturnal desaturation
noted desaturating overnight
nocturnal saturation study appreciated significant desaturation qualifies for home oxygen at bedtime, patient endorses already having at home
likely would benefit from outpatient sleep study
cont nasal cannula supplementation bedtime
# Coronary artery disease with stents
Continue aspirin, statin, Coreg
# Hypothyroidism-continue Synthroid
# Anemia of Chronic Disease
#Anemia d/t chronic renal insufficiency
H&H stable
#Vitamin D Deficiency
Vit D supplementation
#Hypocalcemia
monitor and replete as necessary
Scheduled Calcium supplementation
#Mild Hyperkalemia
monitor
# Hyperlipidemia
Continue atorvastatin
# Pulmonary nodules
Outpatient follow-up
DVT prophylaxis� ASA
Full code
PT/OT eval appreciated
Medically stable for discharge SNF rehab pending placement
I spent a total of �55 � minutes with the patient or on the floor. More than 50% of this time involved counseling and coordination of care.
Anticipated Discharge: Within 24 hours
Subjective/Interval History
-
Date of Service: November 20, 2023
No acute distress. Reports episode diarrhea otherwise feels well.
Objective Data
-
Labs:
Laboratory Results
11/20/23
07:20
WBC Pending
Hgb Pending
Hct Pending
Plt Count Pending
Sodium Pending
Potassium Pending
Chloride Pending
Carbon Dioxide Pending
BUN Pending
Creatinine Pending
Glucose Pending
Calcium Pending
Vital Signs:
Vital Signs
Temp Pulse Resp BP Pulse Ox
98.5 F 71 16 154/78 93
11/20/23 03:55 11/20/23 03:55 11/20/23 03:55 11/20/23 03:55 11/20/23 03:55
I&O
11/19/23 11/20/23 11/21/23
06:59 06:59 06:59
Intake Total 240 / 240 960 / 960
Output Total 775 / 775 850 / 850
Balance -535 / -535 110 / 110
[2023-11-20] MEDS: NOVOLOG FLEXPEN 5 UNITS SC ×3 (08:08→16:40)
[2023-11-20] MEDS: NOVOLOG FLEXPEN-LOW RESISTANCE SC (08:09)
[2023-11-20] MEDS: VITAMIN D3 (cholecalciferol) 20 MCG PO (08:10)
[2023-11-20] MEDS: ENTRESTO 49 MG/51 MG 1 TAB PO ×2 (08:10→19:43)
[2023-11-20] MEDS: THERAGRAN 1 TABLET PO (08:11)
[2023-11-20] MEDS: MIRALAX 17 GRAMS PO (08:11)
[2023-11-20] MEDS: FARXIGA 10 MG PO (08:11)
[2023-11-20] MEDS: OSCAL CAL 500 1000 MG PO ×2 (08:11→19:43)
[2023-11-20] MEDS: APRESOLINE 50 MG PO ×2 (08:11→19:42)
[2023-11-20] MEDS: COREG 12.5 MG PO ×2 (08:11→19:43)
[2023-11-20] MEDS: DEMADEX 20 MG PO (08:11)
[2023-11-20] MEDS: ASPIRIN ENTERIC COATED 325 MG PO (08:11)
[2023-11-20] MEDS: LANTUS 0.100000000000000006 UNITS SC (08:13)
[2023-11-20 09:42] LABS: Hematocrit 26.9 % (39.0-52.0); Mean Corp Hgb Conc. 33.5 g/dL (33.0-37.0); Mean Corpuscular Hgb 31.8 pg (27.0-31.0); Mean Corpuscular Volume 95.1 fL (80.0-94.0); Mean Platelet Volume 9.6 fL (7.4-10.4); Platelet Count 233 10^3/uL (130-400); Red Blood Cell Count 2.83 10^6/uL (4.70-6.10); Red Cell Dist. Width 14.4 % (11.5-14.5); White Blood Cell Count 3.8 10^3/uL (4.8-10.8)
[2023-11-20 10:12] LABS: Blood Urea Nitrogen 53 mg/dl (9-20); Calcium 8.4 mg/dl (8.4-10.2); Carbon Dioxide 29 mmol/L (22-30); Chloride 101 mmol/L (98-107); Estimated Creatinine Clearance 35 ml/min; Glucose 114 mg/dl (70-99); Magnesium 2.5 mg/dl (1.6-2.3); Potassium 5.2 mmol/L (3.5-5.1); Sodium 134 mmol/L (135-145); eGFR 34.08
[2023-11-20 11:18] LABS: Glucose - Point of Care 242 mg/dl (70-99)
[2023-11-20] MEDS: NOVOLOG FLEXPEN-LOW RESISTANCE 2 UNITS SC (11:55)
--- NOTE | 2023-11-20 13:52 | CM ---
Addendum entered by Christine Lindsey 11/20/23 16:30:
Patient was approved for 9 days skilled Auth [id number], 11/20 to 11/28, Auth provided to Irina in admissions, patient does not require a CPAP, please call Keven with time of transfer [phone]
[facility]
Report [phone]

Addendum entered by Christine Lindsey 11/20/23 14:52:
Pending Auth [id number]
Original Note:
Patient has been accepted at [facility] in [place], , Dr [address] , admissions [phone], director of pulmonary unit weekend admission person Keven [phone], Auth submitted to [facility], waiting on approval.
Plan; Skilled placement at [facility]
Report [phone]
[2023-11-20] MEDS: APRESOLINE 5 MG IV (16:00)
[2023-11-20 16:22] LABS: Glucose - Point of Care 158 mg/dl (70-99)
[2023-11-20] MEDS: NOVOLOG FLEXPEN-LOW RESISTANCE 1 UNITS SC (16:39)
[2023-11-20] MEDS: LIPITOR 40 MG PO (19:45)
[2023-11-20 20:38] LABS: Glucose - Point of Care 172 mg/dl (70-99)
[2023-11-20] MEDS: TYLENOL 650 MG PO (22:17)
[2023-11-21 03:53] VITALS: BP 160/89
[2023-11-21] MEDS: SYNTHROID 112 MCG PO (06:13)
[2023-11-21 07:00] VITALS: BP 160/84
[2023-11-21 07:07] LABS: Hematocrit 28.1 % (39.0-52.0); Hemoglobin 9.3 g/dL (13.0-18.0); Mean Corp Hgb Conc. 33.1 g/dL (33.0-37.0); Mean Corpuscular Hgb 31.8 pg (27.0-31.0); Mean Corpuscular Volume 96.2 fL (80.0-94.0); Mean Platelet Volume 9.4 fL (7.4-10.4); Platelet Count 215 10^3/uL (130-400); Red Blood Cell Count 2.92 10^6/uL (4.70-6.10); Red Cell Dist. Width 14.4 % (11.5-14.5); White Blood Cell Count 4.2 10^3/uL (4.8-10.8)
--- NOTE | 2023-11-21 07:17 | W.PN.HOSP.TC ---
Today's Communication/Plan
-
restricted potassium diet
lokelma once
hold entresto
Hydralazine increased to TID for better bp control
cont glycemic blood pressure control
PT/OT
Assessment / Plan
Assessment / Plan
Physical Exam
General: No pallor, cyanosis, or jaundice.
HEENT: Throat clear. PERRLA Normocephalic atraumatic
NECK: Supple. No JVD Carotid Bruits
RESPIRATORY: Lungs clear to auscultation. No crackles wheezes stridor
CVS: S1, S2 normal. RRR.� No murmur, rub or gallop.
ABDOMEN: Soft, non-tender. No distension. BS+/normal.
EXTREMITIES: Right lower extremity splint dressing in place
ELECTRONIC DATA PROCESSING AUDITOR: AOx3.
IMPRESSION:
58M CAD stent HFmrEF DM HTN Hypothyroidism RLE comminuted fracture s/p ORIF recently discharged from this facility to [facility] a few days ago returns d/t unresponsiveness.� Patient reports blood sugar was 500s prior night for which he was
given increased insulin coverage.� Following morning, per reports he was found cold clammy unresponsive with associate hypothermia and hypoglycemia.� Received IV Glucagon at facility with subsequent improvement.� Hypothermia hypotensive on ED
evaluation reported temp 92 bp low 75/58.� Patient further improved with Ana Hugger SBP 120s.
PLAN:
Mild Progressive Hyperkalemia
-Lokelma once 11/20
-restrict potassium diet
-Entresto placed on hold
Acute Metabolic Encephalopathy Hypotension Hypothermia likely 2/2 Iatrogenic Hypoglycemia
-improved with resolution hypoglycemia and ana hugger for hypothermia
-doubt infectious etiology, Procalcitonin elevation likely d/t renal insufficiency, afebrile, no leukocytosis, patient denies prodromal symptoms of systemic infection
-IMU admit since downgraded to Tele
# Right tib-fib fracture s/p ORIF right tibial IM nail 11/02
-strict NWB to RLE w/ assistive device
-ASA 325 mg daily x4 weeks DVT ppx through 11/30/23, then aspirin 81 mg daily
-Ortho follow up eval appreciated, hannah removed
-repeat XR RLE appreciated Stable postsurgical change of the right tibia. Improved alignment of distal right tibial fracture
# Hypertension
hypotensive on admission improved with resolution hypothermia.�
Continue Coreg Entresto Torsemide with holding parameters
Home Hydralazine resumed at reduced dose eventually titrated back up to 50 mg BID further increased to TID d/t uncontrolled pressures
Coreg increased to 25 mg BID from 12.5 for better blood pressure control, cont holding parameters.
CKDIII
Cr stable
will cont to monitor
limit nephrotoxic agents as able
# Chronic heart failure with reduced ejection fraction
Euvolemic at this time
Continue beta-blockers.� Entresto and Torsemide with holding parameters as above
Recent ECHO appreciated EF 45-50% stage I diastolic dysfunction no significant valve abn's
# Type 2 diabetes- Brittle Diabetic
Continue insulin regimen and Farxiga
Diabetes CLINICAL ADMINISTRATOR consult appreciated
#Nocturnal desaturation
noted desaturating overnight
nocturnal saturation study appreciated significant desaturation qualifies for home oxygen at bedtime, patient endorses already having at home
likely would benefit from outpatient sleep study
cont nasal cannula supplementation bedtime
# Coronary artery disease with stents
Continue aspirin, statin, Coreg
# Hypothyroidism-continue Synthroid
# Anemia of Chronic Disease
#Anemia d/t chronic renal insufficiency
H&H stable
#Vitamin D Deficiency
Vit D supplementation
#Hypocalcemia
monitor and replete as necessary
Scheduled Calcium supplementation
#Mild Hyperkalemia
monitor
# Hyperlipidemia
Continue atorvastatin
# Pulmonary nodules
Outpatient follow-up
DVT prophylaxis� ASA
Full code
PT/OT eval appreciated SNF rehab
Holding discharge at this time due to hyperkalemia as above
I spent a total of �55 � minutes with the patient or on the floor. More than 50% of this time involved counseling and coordination of care.
Anticipated Discharge: 24 - 48 hours
Subjective/Interval History
-
Date of Service: November 21, 2023
No acute distress resting comfortably in bed. Denies new acute issues at this time
Objective Data
-
Labs:
Laboratory Results
11/21/23
06:39
WBC 4.2 L
Hgb 9.3 L
Hct 28.1 L
Plt Count 215
Sodium Pending
Potassium Pending
Chloride Pending
Carbon Dioxide Pending
BUN Pending
Creatinine Pending
Glucose Pending
Calcium Pending
Vital Signs:
Vital Signs
Temp Pulse Resp BP Pulse Ox
98.3 F 74 16 160/89 93
11/21/23 03:53 11/21/23 03:53 11/21/23 03:53 11/21/23 03:53 11/21/23 03:53
I&O
11/20/23 11/21/23 11/22/23
06:59 06:59 06:59
Intake Total 960 / 960 1260 / 1260
Output Total 850 / 850 850 / 850
Balance 110 / 110 410 / 410
[2023-11-21 07:26] LABS: Blood Urea Nitrogen 56 mg/dl (9-20); Calcium 8.9 mg/dl (8.4-10.2); Carbon Dioxide 28 mmol/L (22-30); Chloride 104 mmol/L (98-107); Estimated Creatinine Clearance 36 ml/min; Glucose 193 mg/dl (70-99); Magnesium 2.3 mg/dl (1.6-2.3); Potassium 5.5 mmol/L (3.5-5.1); Sodium 134 mmol/L (135-145); eGFR 36.04
[2023-11-21 07:39] LABS: Glucose - Point of Care 210 mg/dl (70-99)
[2023-11-21] MEDS: NOVOLOG FLEXPEN-LOW RESISTANCE 2 UNITS SC (08:47)
[2023-11-21] MEDS: NOVOLOG FLEXPEN 5 UNITS SC ×3 (08:49→18:45)
[2023-11-21] MEDS: ENTRESTO 49 MG/51 MG 1 TAB PO (08:50)
[2023-11-21] MEDS: APRESOLINE 50 MG PO ×2 (08:53→20:11)
[2023-11-21] MEDS: THERAGRAN 1 TABLET PO (08:53)
[2023-11-21] MEDS: OSCAL CAL 500 1000 MG PO ×2 (08:53→20:12)
[2023-11-21] MEDS: VITAMIN D3 (cholecalciferol) 20 MCG PO (08:53)
[2023-11-21] MEDS: COREG 25 MG PO ×2 (08:53→20:12)
[2023-11-21] MEDS: ASPIRIN ENTERIC COATED 325 MG PO (08:53)
[2023-11-21] MEDS: LANTUS 0.100000000000000006 UNITS SC (08:55)
[2023-11-21] MEDS: DEMADEX 20 MG PO (09:00)
[2023-11-21] MEDS: FARXIGA 10 MG PO (09:00)
[2023-11-21] MEDS: TYLENOL 650 MG PO (09:29)
--- NOTE | 2023-11-21 09:43 | CM ---
Addendum entered by Janis Washington 11/21/23 10:05:
Continue to monitor labs.
d/c on hold for now.
Original Note:
Patient seen bedside.
Patient is anticipating transfer to skilled rehab today.
Patient has no transportation, will require WC van and in agreement to prepay.
Plan: skilled rehab when medically stable.
[facility] Karina Pizano
Report [phone]
[2023-11-21 11:00] VITALS: BP 141/70
[2023-11-21] MEDS: LOKELMA 5 GRAM PO (11:25)
[2023-11-21 11:58] LABS: Glucose - Point of Care 285 mg/dl (70-99)
[2023-11-21] MEDS: NOVOLOG FLEXPEN-LOW RESISTANCE 3 UNITS SC (12:52)
[2023-11-21 15:00] VITALS: BP 170/84
[2023-11-21] MEDS: APRESOLINE 5 MG IV (17:00)
[2023-11-21] MEDS: FLUSH (NSS) 1 FLUSH IV (17:02)
[2023-11-21 17:23] LABS: Glucose - Point of Care 180 mg/dl (70-99)
[2023-11-21] MEDS: NOVOLOG FLEXPEN-LOW RESISTANCE 1 UNITS SC (18:45)
[2023-11-21 20:09] VITALS: BP 174/84
[2023-11-21] MEDS: LIPITOR 40 MG PO (20:11)
[2023-11-21 21:46] LABS: Glucose - Point of Care 132 mg/dl (70-99)
[2023-11-21] MEDS: APRESOLINE PO (21:59)
[2023-11-21 22:43] VITALS: BP 138/74
[2023-11-22] MEDS: SYNTHROID 112 MCG PO (06:00)
[2023-11-22 06:21] LABS: Hematocrit 29.2 % (39.0-52.0); Hemoglobin 9.5 g/dL (13.0-18.0); Mean Corp Hgb Conc. 32.5 g/dL (33.0-37.0); Mean Corpuscular Hgb 31.3 pg (27.0-31.0); Mean Corpuscular Volume 96.1 fL (80.0-94.0); Mean Platelet Volume 9.4 fL (7.4-10.4); Platelet Count 204 10^3/uL (130-400); Red Blood Cell Count 3.04 10^6/uL (4.70-6.10); Red Cell Dist. Width 14.2 % (11.5-14.5); White Blood Cell Count 4.6 10^3/uL (4.8-10.8)
[2023-11-22 06:40] LABS: Blood Urea Nitrogen 57 mg/dl (9-20); Calcium 9.3 mg/dl (8.4-10.2); Carbon Dioxide 29 mmol/L (22-30); Chloride 102 mmol/L (98-107); Estimated Creatinine Clearance 33 ml/min; Glucose 160 mg/dl (70-99); Magnesium 2.3 mg/dl (1.6-2.3); Potassium 5.2 mmol/L (3.5-5.1); Sodium 133 mmol/L (135-145); eGFR 32.31
--- NOTE | 2023-11-22 06:58 | W.PN.HOSP.TC ---
Today's Communication/Plan
-
Monitor K
restricted potassium diet
hold entresto
glycemic control
blood pressure control
PT/OT
Assessment / Plan
Assessment / Plan
Physical Exam
General: No pallor, cyanosis, or jaundice.
HEENT: Throat clear. PERRLA Normocephalic atraumatic
NECK: Supple. No JVD Carotid Bruits
RESPIRATORY: Lungs clear to auscultation. No crackles wheezes stridor
CVS: S1, S2 normal. RRR.� No murmur, rub or gallop.
ABDOMEN: Soft, non-tender. No distension. BS+/normal.
EXTREMITIES: Right lower extremity splint dressing in place
DIGITIZER: AOx3.
IMPRESSION:
58M CAD stent HFmrEF DM HTN Hypothyroidism RLE comminuted fracture s/p ORIF recently discharged from this facility to [facility] a few days ago returns d/t unresponsiveness.� Patient reports blood sugar was 500s prior night for which he was
given increased insulin coverage.� Following morning, per reports he was found cold clammy unresponsive with associate hypothermia and hypoglycemia.� Received IV Glucagon at facility with subsequent improvement.� Hypothermia hypotensive on ED
evaluation reported temp 92 bp low 75/58.� Patient further improved with Ana Hugger SBP 120s.
PLAN:
Mild Progressive Hyperkalemia
-Lokelma once 11/20
-restrict potassium diet
-Entresto placed on hold
-improving, consider resuming Entresto at lower dose when K wnl
Acute Metabolic Encephalopathy Hypotension Hypothermia likely 2/2 Iatrogenic Hypoglycemia
-improved with resolution hypoglycemia and ana hugger for hypothermia
-doubt infectious etiology, Procalcitonin elevation likely d/t renal insufficiency, afebrile, no leukocytosis, patient denies prodromal symptoms of systemic infection
-IMU admit since downgraded to Tele
# Right tib-fib fracture s/p ORIF right tibial IM nail 03/05
-strict NWB to RLE w/ assistive device
-ASA 325 mg daily x4 weeks DVT ppx through 11/30/23, then aspirin 81 mg daily
-Ortho follow up eval appreciated, hannah removed
-repeat XR RLE appreciated Stable postsurgical change of the right tibia. Improved alignment of distal right tibial fracture
# Hypertension
hypotensive on admission improved with resolution hypothermia.�
Continue Coreg Torsemide with holding parameters
Home Hydralazine resumed at reduced dose eventually titrated back up to 50 mg BID further increased to TID d/t uncontrolled pressures
Coreg increased to 25 mg BID from 12.5 for better blood pressure control, cont holding parameters.
Entresto held d/t hyperkalemia as above, consider resuming at reduced dose when potassium improves
CKDIII
Cr stable
will cont to monitor
limit nephrotoxic agents as able
# Chronic heart failure with reduced ejection fraction
Euvolemic at this time
Continue beta-blockers.� Entresto and Torsemide with holding parameters as above
Recent ECHO appreciated EF 45-50% stage I diastolic dysfunction no significant valve abn's
# Type 2 diabetes- Brittle Diabetic
Continue insulin regimen and Farxiga
Diabetes SUBWAY TRAIN OPERATOR consult appreciated
#Nocturnal desaturation
noted desaturating overnight
nocturnal saturation study appreciated significant desaturation qualifies for home oxygen at bedtime, patient endorses already having at home
likely would benefit from outpatient sleep study
cont nasal cannula supplementation bedtime
# Coronary artery disease with stents
Continue aspirin, statin, Coreg
# Hypothyroidism-continue Synthroid
# Anemia of Chronic Disease
#Anemia d/t chronic renal insufficiency
H&H stable
#Vitamin D Deficiency
Vit D supplementation
#Hypocalcemia
monitor and replete as necessary
Scheduled Calcium supplementation
# Hyperlipidemia
Continue atorvastatin
# Pulmonary nodules
Outpatient follow-up
DVT prophylaxis� ASA
Full code
PT/OT eval appreciated SNF rehab
I spent a total of �52 � minutes with the patient or on the floor. More than 50% of this time involved counseling and coordination of care.
Anticipated Discharge: 24 - 48 hours
Subjective/Interval History
-
Date of Service: November 22, 2023
No acute distress. Bowel movements 'runny' since [facility] day prior but otherwise, reports feeling well
Objective Data
-
Labs:
Laboratory Results
11/22/23
06:00
WBC 4.6 L
Hgb 9.5 L
Hct 29.2 L
Plt Count 204
Sodium 133 L
Potassium 5.2 H
Chloride 102
Carbon Dioxide 29
BUN 57 H
Creatinine 2.3 H
Glucose 160 H
Calcium 9.3
Vital Signs:
Vital Signs
Temp Pulse Resp BP Pulse Ox
97.9 F 64 16 138/74 95
11/21/23 22:43 11/21/23 22:43 11/21/23 22:43 11/21/23 22:43 11/21/23 22:43
I&O
11/20/23 11/21/23 11/22/23
06:59 06:59 06:59
Intake Total 960 / 960 1260 / 1260 780 / 780
Output Total 850 / 850 850 / 850 850 / 850
Balance 110 / 110 410 / 410 -70 / -70
[2023-11-22 07:52] LABS: Glucose - Point of Care 155 mg/dl (70-99)
[2023-11-22 08:06] VITALS: BP 168/86
[2023-11-22] MEDS: LANTUS 0.100000000000000006 UNITS SC (10:10)
[2023-11-22] MEDS: FARXIGA 10 MG PO (10:10)
[2023-11-22] MEDS: DEMADEX 20 MG PO (10:10)
[2023-11-22] MEDS: NOVOLOG FLEXPEN 5 UNITS SC ×3 (10:11→16:59)
[2023-11-22] MEDS: NOVOLOG FLEXPEN-LOW RESISTANCE 1 UNITS SC (10:11)
[2023-11-22] MEDS: APRESOLINE 50 MG PO ×3 (10:18→21:18)
[2023-11-22] MEDS: OSCAL CAL 500 1000 MG PO ×2 (10:18→21:18)
[2023-11-22] MEDS: THERAGRAN 1 TABLET PO (10:18)
[2023-11-22] MEDS: VITAMIN D3 (cholecalciferol) 20 MCG PO (10:18)
[2023-11-22] MEDS: ASPIRIN ENTERIC COATED 325 MG PO (10:18)
[2023-11-22] MEDS: COREG 25 MG PO ×2 (10:18→21:18)
[2023-11-22 11:43] LABS: Glucose - Point of Care 254 mg/dl (70-99)
[2023-11-22 12:11] VITALS: BP 131/61
[2023-11-22] MEDS: NOVOLOG FLEXPEN-LOW RESISTANCE 3 UNITS SC (14:03)
[2023-11-22 15:40] VITALS: BP 161/78; PULSE 68
[2023-11-22 15:43] VITALS: BP 161/78
[2023-11-22 16:42] LABS: Glucose - Point of Care 214 mg/dl (70-99)
[2023-11-22] MEDS: NOVOLOG FLEXPEN-LOW RESISTANCE 2 UNITS SC (16:59)
[2023-11-22 21:11] VITALS: BP 132/67
[2023-11-22 21:17] LABS: Glucose - Point of Care 118 mg/dl (70-99)
[2023-11-22] MEDS: LIPITOR 40 MG PO (21:17)
[2023-11-22 22:55] VITALS: BP 127/56
--- NOTE | 2023-11-22 23:00 | PTCARENOTE ---
Pt refusing nighttime 2L02. Pt currently 95% on room air. Pt educated on reasoning for oxygen needs at HS.
[2023-11-23 04:44] VITALS: BMI 21.8
[2023-11-23] MEDS: SYNTHROID 112 MCG PO (06:26)
[2023-11-23 06:31] LABS: Glucose - Point of Care 87 mg/dl (70-99)
[2023-11-23 07:43] VITALS: BP 158/70
[2023-11-23] MEDS: NOVOLOG FLEXPEN-LOW RESISTANCE SC ×2 (08:08→12:25)
[2023-11-23] MEDS: DEMADEX 20 MG PO (08:09)
[2023-11-23] MEDS: VITAMIN D3 (cholecalciferol) 20 MCG PO (08:09)
[2023-11-23] MEDS: OSCAL CAL 500 1000 MG PO (08:10)
[2023-11-23] MEDS: ASPIRIN ENTERIC COATED 325 MG PO (08:10)
[2023-11-23] MEDS: THERAGRAN 1 TABLET PO (08:11)
[2023-11-23] MEDS: FARXIGA 10 MG PO (08:11)
[2023-11-23] MEDS: COREG 25 MG PO (08:11)
[2023-11-23] MEDS: NOVOLOG FLEXPEN 5 UNITS SC ×2 (08:20→16:16)
[2023-11-23] MEDS: LANTUS 0.100000000000000006 UNITS SC (08:21)
[2023-11-23] MEDS: APRESOLINE 50 MG PO ×2 (08:27→16:05)
--- NOTE | 2023-11-23 08:39 | PN.DE.MGMTRT ---
Insulin Management
- -
11/23/2023 Diabetes Management F/U:
Patient admitted for hypoglycemia after being found unresponsive from PR. He did receive a significant amount of insulin for elevated glucose prior to this happening. Patient is known from recent admission for fractured tib-fib. PMH CAD,
hypothyroid, HLD, sleep apnea, neuropathy, HTN.
Regimen before admission was Levemir 8units BID and NovoLog 10 to 12 units AC.
Pt was transitioned from Levemir to Lantus on 11/17 due to recurrent hypoglycemia. No more episodes of Hypo since switching to Lantus
He is awake, A/O x3, sitting up comfortably in bed, states he is still hungry and that meals provided are not enough.
Glucose elevated before lunch and dinner, otherwise stable w/o episodes of hypoglycemia
Will increase Lantus to 12 units in AM, NovoLog 7 units before breakfast and lunch and continue 5 units @ dinner.
Cont Farxiga 10 mg daily.
Patient will need RX for Lantus, placed in ambulatory orders but not transmitted.
Diabetes History
- -
Type of Diabetes: 2 requiring insulin
Pre-Admission Diabetes Regimen
Insulin Pump Settings
IP Diabetes Regimen
11/22/23 11/22/23 11/22/23
11:42 16:40 21:16
POC Glucose 254 H 214 H 118 H
11/23/23
06:30
POC Glucose 87
Meal type: Breakfast
Amount consumed: 100%
Patient Education
[2023-11-23 08:59] LABS: Hematocrit 29.4 % (39.0-52.0); Hemoglobin 9.7 g/dL (13.0-18.0); Mean Corpuscular Hgb 31.7 pg (27.0-31.0); Mean Corpuscular Volume 96.1 fL (80.0-94.0); Mean Platelet Volume 9.5 fL (7.4-10.4); Platelet Count 217 10^3/uL (130-400); Red Blood Cell Count 3.06 10^6/uL (4.70-6.10); Red Cell Dist. Width 14.3 % (11.5-14.5); White Blood Cell Count 4.9 10^3/uL (4.8-10.8)
[2023-11-23 09:24] LABS: Blood Urea Nitrogen 63 mg/dl (9-20); Calcium 9.6 mg/dl (8.4-10.2); Carbon Dioxide 30 mmol/L (22-30); Chloride 99 mmol/L (98-107); Estimated Creatinine Clearance 32 ml/min; Glucose 96 mg/dl (70-99); Potassium 4.7 mmol/L (3.5-5.1); Sodium 136 mmol/L (135-145); eGFR 32.31
--- NOTE | 2023-11-23 09:38 | W.PN.HOSP.TC ---
Today's Communication/Plan
-
Discharge to short-term rehab today
Assessment / Plan
Assessment / Plan
58M CAD stent HFmrEF DM HTN Hypothyroidism RLE comminuted fracture s/p ORIF recently discharged from this facility to [facility] a few days ago returns d/t unresponsiveness.� Patient reports blood sugar was 500s prior night for which he was
given increased insulin coverage.� Following morning, per reports he was found cold clammy unresponsive with associate hypothermia and hypoglycemia.� Received IV Glucagon at facility with subsequent improvement.� Hypothermia hypotensive on ED
evaluation reported temp 92 bp low 75/58.� Patient further improved with Ana Hugger SBP 120s.
PLAN:
Mild Progressive Hyperkalemia
-Lokelma once 11/20
-Resolved, potassium 4.7 with holding Entresto, on low potassium diet
-Patient admitted on 11/16, potassium 4.6 while on Entresto with a low potassium diet
-Would prefer that he resume his Entresto upon discharge, continue low potassium diet, repeat potassium in 3 days on 11/25
Acute Metabolic Encephalopathy Hypotension Hypothermia likely 2/2 Iatrogenic Hypoglycemia
-Resolved with treatment of hypoglycemia and ana hugger for hypothermia
-Doubt infectious etiology, procalcitonin elevation likely d/t renal insufficiency, afebrile, no leukocytosis, patient denies prodromal symptoms of systemic infection
# Right tib-fib fracture s/p ORIF right tibial IM nail 11/02
-Strict NWB to RLE w/ assistive device
-ASA 325 mg daily x4 weeks DVT ppx through 11/30/23, then aspirin 81 mg daily
-Ortho follow up eval appreciated, hannah removed
-Repeat XR RLE shows stable postsurgical change of the right tibia. Improved alignment of distal right tibial fracture
#Hypertension
Hypotensive on admission improved with resolution hypothermia.�
Continue Coreg, Torsemide with holding parameters
Home Hydralazine resumed at reduced dose eventually titrated back up to 50 mg BID further increased to TID d/t uncontrolled pressures
Coreg increased to 25 mg BID from 12.5 for better blood pressure control, cont holding parameters.
Entresto held d/t hyperkalemia as above, consider resuming at reduced dose when potassium improves
#CKDIII
Cr stable
will cont to monitor
limit nephrotoxic agents as able
#Chronic heart failure with reduced ejection fraction
Euvolemic at this time
Continue beta-blockers.� Entresto and Torsemide with holding parameters as above
Recent ECHO appreciated EF 45-50% stage I diastolic dysfunction no significant valve abn's
# Type 2 diabetes- Brittle Diabetic
Continue insulin regimen and Farxiga
Diabetes SSIS ETL DEVELOPER consult appreciated
#Nocturnal desaturation
nocturnal saturation study appreciated significant desaturation qualifies for home oxygen at bedtime, patient reports already having at home
likely would benefit from outpatient sleep study
cont nasal cannula supplementation bedtime
# Coronary artery disease with stents
Continue aspirin, statin, Coreg
# Hypothyroidism-continue Synthroid
# Anemia of Chronic Disease
#Anemia d/t chronic renal insufficiency
H&H stable
#Vitamin D Deficiency
Vit D supplementation
#Hypocalcemia
monitor and replete as necessary
Scheduled Calcium supplementation
# Hyperlipidemia
Continue atorvastatin
# Pulmonary nodules
Outpatient follow-up
DVT prophylaxis� ASA
Full code
PT/OT eval appreciated SNF rehab
Physical Exam
General: No pallor, cyanosis, or jaundice.
HEENT: Throat clear. PERRLA Normocephalic atraumatic
NECK: Supple. No JVD Carotid Bruits
RESPIRATORY: Lungs clear to auscultation. No crackles wheezes stridor
CVS: S1, S2 normal. RRR.� No murmur, rub or gallop.
ABDOMEN: Soft, non-tender. No distension. BS+/normal.
EXTREMITIES: Right lower extremity splint dressing in place
BRANCH CREDIT COUNSELOR: AOx3.
Anticipated Discharge: Today
Subjective/Interval History
-
Date of Service: November 23, 2023
Patient feels well, no chest pain, no shortness of breath. No fever, no vomiting.
Objective Data
-
Labs:
Laboratory Results
11/23/23
08:23
WBC Pending
Hgb Pending
Hct Pending
Plt Count Pending
Sodium 136
Potassium 4.7
Chloride 99
Carbon Dioxide 30
BUN 63 H
Creatinine 2.3 H
Glucose 96
Calcium 9.6
Vital Signs:
Vital Signs
Temp Pulse Resp BP Pulse Ox
98.8 F 67 16 158/70 96
11/23/23 07:43 11/23/23 07:43 11/23/23 07:43 11/23/23 07:43 11/23/23 07:43
I&O
11/22/23 11/23/23 11/24/23
06:59 06:59 06:59
Intake Total 780 / 780 700 / 700
Output Total 850 / 850 920 / 920
Balance -70 / -70 -220 / -220
--- NOTE | 2023-11-23 10:17 | CM ---
Patient to transfer to [facility] in [place] when stable. Auth provided to Irina in admissions.
[facility] [place]
Report [phone]
[2023-11-23 12:05] LABS: Glucose - Point of Care 132 mg/dl (70-99)
[2023-11-23] MEDS: NOVOLOG FLEXPEN 7 UNITS SC (12:26)
--- NOTE | 2023-11-23 15:35 | W.DCSUMMARY ---
Discharge Summary
Discharge Data
Date of Admission: 11/17/23
Date of Discharge: 11/23/23
-
Pending Results: No
Hospital Course
Discharge diagnoses:
Acute metabolic encephalopathy
Iatrogenic hypoglycemia
Transient hypotension
Transient hypothermia
Hyperkalemia
Recent right tibia/fibular fracture status post surgery on 11/03/2023
Benign essential hypertension
Stage III chronic kidney disease
Chronic heart failure with reduced ejection fraction
Brittle diabetes
Nocturnal desaturation
Coronary artery disease status post stent placement
Hypothyroidism
Hypocalcemia
Consults: Diabetes nurse practitioner
Hospital course:
58-year-old male with a past medical history of CHF, brittle diabetes, hypertension, hypothyroidism, obstructive sleep apnea, and recent right tib/fib fracture status post ORIF on 11/03/2023 was sent from short-term rehab for unresponsiveness.
Patient's blood sugar was noted to be in the 500s the night prior, for which he received increased insulin coverage. The following day, patient was found unresponsive, hypothermic, and hypoglycemic. He received IV glucagon at the facility, with
subsequent improvement. He was treated with a Ana hugger for his hypothermia, and received supportive care with IV fluids for his hypotension.
Patient's previous blood pressure medications were held. Patient's blood pressure improved with IV fluids. Patient had elevated procalcitonin, likely due to chronic kidney disease. He was afebrile, there was no leukocytosis, and no infectious
etiology was identified. Chest x-ray negative for pneumonia, blood cultures were negative.
He was seen in conjunction with the diabetes nurse practitioner, who adjusted his insulin. Patient's hypothermia and hypotension resolved with treatment of his hypoglycemia. Diabetes nurse practitioner recommends that he be discharged on
10 mg daily, Lantus 12 units in the morning, NovoLog 7 units with breakfast and lunch, 5 units with dinner.
Patient's hospital course was complicated by uncontrolled high blood pressure. He was resumed on his previous home regimen. His hydralazine was increased from 50 mg twice a day to 50 mg 3 times a day, Coreg was increased from 12.5 mg twice a day
to 25 mg twice a day.
He also had hyperkalemia. He received Lokelma, his Entresto was held. His potassium the day of discharge normalized at 4.7. Patient was admitted on 11/17/2023, his potassium was 4.6 while on Entresto with a low potassium diet. It is preferred that
he resume his Entresto upon discharge, continue low potassium diet, repeat BMP in 3 days on 11/26/2023.
Patient was also noted to have nocturnal desaturation, requiring oxygen. He does have a history of obstructive sleep apnea, and uses oxygen at night as needed. Recommend outpatient sleep study to obtain CPAP.
For his recent right tib/fib fracture status post repair, his hannah were removed by orthopedic surgery in 11/18/2023. Repeat XR RLE shows stable postsurgical change of the right tibia, and improved alignment of distal right tibial fracture. Patient
has been ordered [employer] High [employer]ide CAM boot. When boot is placed, the patient may progress to TTWB on walker.
Patient's numerous medical conditions have been optimized. He is discharged back to short-term rehab. He needs to follow-up with his primary care doctor 1 week after he leaves rehab, as well as orthopedic surgery in the office in 1-2 weeks.
Disposition: Short-term rehab
Discharge planning: Required 45 minutes
Discharge Plan
-
Patient Disposition: Penitentiary/SNF
Discharge Diagnosis/Procedures: Hypoglycemia, hypotension, toxic metabolic encephalopathy, right tibia/fibula fracture status post surgery, hyperkalemia, constipation, congestive heart failure, brittle diabetes, chronic kidney disease, hypertension,
anemia of chronic disease, pulmonary nodules
Condition: Good
Diet: Diabetic, Carb Controlled
Additional Diets: Low potassium diet
Activity: Do not bear weight R leg
Additional Activity: Strict nonweightbearing right lower extremity with assistive device.
Blood Work: BMP in 3 days on 11/26/2023.
Activity Restrictions/Additional Instructions:
Patient has been ordered [employer] High [employer] CAM boot. When boot placed the patient may progress to TTWB on walker. Requested RN reach out for new order when boot is placed. Recommend outpatient follow-up in 1-2 weeks ([phone]).
You have pulmonary nodules.� Recommend you follow-up with pulmonology in the office for monitoring.
Also recommend you have an outpatient sleep study, to obtain CPAP maching for treatment of your obstructive sleep apnea.
Strict nonweightbearing right lower extremity with assistive device.
Take aspirin 325 mg daily for 4 weeks for blood clot prevention through 11/30/23, then take aspirin 81 mg daily.
Follow-up with your primary care doctor 1 week after you leave rehab.
Follow-up with orthopedic surgery in 1-2 weeks.
Referrals:
Chang Franklin I., DO [Family Provider] - in one week
Carlos Evans MD [Active] - in one to two weeks
Prescriptions:
New
insulin glargine-yfgn [Semglee(insulin glarg-yfgn)Pen] 100 unit/mL (3 mL) Insulin Pen
10 unit SC DAILY Qty: 5 0RF
Rx Instructions:
Take 10 units insulin every morning
E11.65
calcium carbonate [Oyster Shell Calcium 500] 500 mg calcium (1,250 mg) Tablet
1,000 mg PO BID Qty: 30 0RF
cholecalciferol (vitamin D3) [Vitamin D3] 10 mcg (400 unit) Tablet
20 mcg PO DAILY Qty: 30 0RF
insulin aspart U-100 100 unit/mL (3 mL) Insulin Pen
5 unit SC DAILY@1630 Qty: 0 0RF
insulin aspart U-100 100 unit/mL (3 mL) Insulin Pen
7 unit SC DAILY@0730 Qty: 0 0RF
insulin aspart U-100 100 unit/mL (3 mL) Insulin Pen
7 unit SC DAILY@1130 Qty: 0 0RF
carvedilol 25 mg Tablet
25 mg PO BID Qty: 0 0RF
hydralazine 50 mg Tablet
50 mg PO TID Qty: 90 0RF
Insulin Glargine Lantus [Lantus] 12 UNITS
Subcutaneous Insulin Syringe [Syringe-Insulin] 0 UNIT
As Directed mls/hr SC DAILY
Ordered By: Richard Burnham MD
Last Taken: 11/23/23 08:21 0.1 mls
Continued
atorvastatin 40 MG tablet
40 mg PO HS
levothyroxine [Synthroid] 112 mcg Tablet
112 mcg PO DAILY
torsemide 20 mg Tablet
20 mg PO DAILY
therapeutic multivitamin Tablet
1 tab PO DAILY
dapagliflozin propanediol [Farxiga] 10 mg Tablet
10 mg PO DAILY
Entresto 49-51 mg Tablet
1 tab PO BID
aspirin 325 mg tablet,delayed release (DR/EC)
325 mg PO DAILY 16 Days Qty: 16 0RF
acetaminophen 325 mg tablet
650 mg PO Q6HPRN PRN (Reason: mild pain/ fever>100F)
magnesium hydroxide [Milk of Magnesia] 400 mg/5 mL Suspension
30 ml PO DAILY PRN (Reason: if no BM in 3 days )
bisacodyl [Dulcolax (bisacodyl)] 10 mg Suppository
10 mg WV DAILY PRN (Reason: if MOM ineffective after 24 hrs )
Fleet Enema 19-7 gram/118 mL Enema
118 ml WV DAILY PRN (Reason: if dulcolax is ineffective after 24 hrs )
Changed
polyethylene glycol 3350 [HealthyLax] 17 gram powder in packet
17 g PO DAILY Qty: 0 0RF
Discontinued
carvedilol 12.5 MG tablet
12.5 mg PO DAILY
Patient Comments:
11/01/23- patient stated he only takes this 12.5mg daily and once a week he may take it twice a day
hydralazine 50 mg Tablet
50 mg PO BID
insulin aspart U-100 100 unit/mL (3 mL) Insulin Pen
5 unit SC DAILY@1130 Qty: 0 0RF
Levemir FlexPen 100 unit/mL (3 mL) insulin pen
10 unit SC DAILY
Levemir FlexPen 100 unit/mL (3 mL) insulin pen
20 unit SC HS
oxycodone 5 mg tablet
5 mg PO Q4HPRN PRN (Reason: severe pain)
insulin aspart U-100 100 unit/mL (3 mL) insulin pen
7 unit SC DAILY@0730,1630
calcium carbonate-vitamin D3 [Oyster Shell Calcium-Vit D3] 500 mg-5 mcg (200 unit) tablet
1 tab PO TID
Discharge Orders:
Discharge Patient (As Directed); Ordered 11/23/23
Ordered By: Richard Burnham
[2023-11-23 15:55] VITALS: BP 174/85
[2023-11-23] MEDS: PREVNAR 20 0.5 ML IM (16:05)
[2023-11-23 16:13] LABS: Glucose - Point of Care 200 mg/dl (70-99)
[2023-11-23] MEDS: NOVOLOG FLEXPEN-LOW RESISTANCE 2 UNITS SC (16:16)
== END 2023-11-23 18:15 | DRG 71 ==
LOC: 4 WEST ACU 13:09
PROVIDERS: ADMITTING PHYSICIAN Internal Medicine; ATTENDING PHYSICIAN Family Medicine; EMERGENCY PHYSICIAN Emergency Medicine; FAMILY PHYSICIAN Internal Medicine
DX: G93.41 Metabolic encephalopathy (principal); I13.0 Hypertensive heart and chronic kidney disease with heart failure and stage 1 through stage 4 chronic kidney disease, or unspecified chronic kidney disease; I50.22 Chronic systolic (congestive) heart failure; N18.30 Chronic kidney disease, stage 3 unspecified; E11.649 Type 2 diabetes mellitus with hypoglycemia without coma; E11.22 Type 2 diabetes mellitus with diabetic chronic kidney disease; S82.301A Unspecified fracture of lower end of right tibia, initial encounter for closed fracture; S82.401A Unspecified fracture of shaft of right fibula, initial encounter for closed fracture; Z79.82 Long term (current) use of aspirin; I25.10 Atherosclerotic heart disease of native coronary artery without angina pectoris; E03.9 Hypothyroidism, unspecified; D63.1 Anemia in chronic kidney disease; E55.9 Vitamin D deficiency, unspecified; E83.51 Hypocalcemia; E78.00 Pure hypercholesterolemia, unspecified; E87.5 Hyperkalemia; Z95.5 Presence of coronary angioplasty implant and graft; I95.9 Hypotension, unspecified
CPT/HCPCS: 71045; 73590; 80048; 80053; 81003; 81015; 82962; 83605; 83735; 84145; 84484; 85025; 85027; 87040; 87070; 93005; 94762; 96360; 97116; 97163; 97166; 97530; 99291

== ENCOUNTER 2023-11-26 22:45 | Emergency (ER) | payer OTHER, SELFPAY ==
[2023-11-26 22:48] VITALS: BP 182/95
[2023-11-26 22:53] LABS: Glucose - Point of Care 510 mg/dl (70-99)
[2023-11-26 22:58] LABS: % Basophils 0.5 % (0-2); % Eosinophils 4.6 % (0-6); % Immature Granulocytes 0.3 % (0-0.5); % Lymphocytes 19.2 % (20.5-51.1); % Monocytes 11.6 % (1.7-9.3); % Neutrophils 63.8 % (42.2-75.2); Absolute Eosinophils 0.2 10^3/uL (0-0.7); Absolute Lymphocytes 0.7 10^3/uL (1.2-3.4); Absolute Monocytes 0.4 10^3/uL (0.1-0.6); Absolute Neutrophils 2.4 10^3/uL (1.4-6.5); Hematocrit 29.7 % (39.0-52.0); Hemoglobin 9.9 g/dL (13.0-18.0); Mean Corp Hgb Conc. 33.3 g/dL (33.0-37.0); Mean Corpuscular Hgb 31.8 pg (27.0-31.0); Mean Corpuscular Volume 95.5 fL (80.0-94.0); Mean Platelet Volume 9.6 fL (7.4-10.4); Nucleated Red Blood Cells % 0 % (-); Platelet Count 201 10^3/uL (130-400); Red Blood Cell Count 3.11 10^6/uL (4.70-6.10); Red Cell Dist. Width 14.1 % (11.5-14.5); White Blood Cell Count 3.7 10^3/uL (4.8-10.8)
[2023-11-26 23:00] VITALS: BP 175/88
--- NOTE | 2023-11-26 23:27 | ED.GENMED ---
History of Present Illness
<ANABELLA Mccarty - Last Filed: 11/26/23 23:34>
General
Chief Complaint: Blood Sugar Problem
Source: patient
Exam Limitations: none
Time Seen by Provider: 11/26/23 23:12
Nursing documentation reviewed up to this point in time: agreed with
Travel History
Have you had any contact with someone who has COVID-19?: No
Do you have any symptoms of coronavirus? Fever > 100 degrees, chills, cough, shortness of breath, sore throat, loss of taste or smell, muscle aches, or headache?: No
History of Present Illness
History of Present Illness:
patient is a 58 y/o male with PMH of CKD, DM, HTN and Hypothyroidism presenting for high blood sugar at his rehab facility. Patient admits that his blood sugar was over 600 today and he was given insulin at his facility. POC Glucose today was 510 on
arrival. Patient denies any polyuria, polydipsia, dry mouth, urinary retention, M/V/D/C, CP, RODRÍGUEZ, SOB, fever chills. Patient denies any recent illnesses. Patient admits to taking Farxiga and insulin this morning as usual. Patient was in the hospital
3 days ago for hypoglycemia after being found unresponsive. Patient medications doses were adjusted in hospital at that time. Patient was also found to have HTN and hyperkalemia when admitted which were resolved prior to discharge. Patient has a
tib/fib fracture which he had an ORIF on 11/03/23.
Past History
<ANABELLA Mccarty - Last Filed: 11/26/23 23:34>
Past History
ED Past Medical History: HTN, Hypercholesterolemia and IDDM
ED Past Surgical History: None
Social History
Tobacco: Former smoker
Alcohol: Occasional
Personal:
Living: with family
Employment: Other
Review of Systems
<ANABELLA Mccarty - Last Filed: 11/26/23 23:34>
Review of Systems
All Other Systems: Not applicable
Constitutional: Reports no symptoms
EENT: Reports no symptoms
Respiratory: Reports no symptoms
Cardiac: Reports no symptoms
ABD/GI: Reports no symptoms
: Reports no symptoms
Musculoskeletal: Reports no symptoms
Skin: Reports no symptoms
Neurological: Reports no symptoms
Endocrine: Reports no symptoms
Hematologic/Lymphatic: Reports no symptoms
Psychiatric: Reports no symptoms
Phy Exam
<ANABELLA Mccarty - Last Filed: 11/26/23 23:34>
General Physical Exam
General Presentation: well appearing and no apparent distress
General Skin: warm and dry
General Habitus: normal
General Mental: alert
General Hydration: appears well hydrated
ENT Exam
ENT Exam: EOMI, pharynx normal, neck supple and normocephalic
Eye Exam
Eye Exam: PERRL, cornea clear and conjunctiva normal
Cardiovascular Exam
Cardiovascular Exam: regular rate/rhythm, no edema, no murmur and normal peripheral pulses
Pulmonary Exam
Pulmonary Exam: lungs clear, no respiratory distress, no rales, no crackles, no rhonchi, no stridor, no wheezing and no cough
Gastrointestinal Exam
Gastrointestinal Exam: normal bowel sounds, non tender, soft, no organomegaly, no pulsatile mass and non distended
Neurological Exam
Neurological Exam: alert, oriented x3, no motor deficits and speech normal
Musculoskeletal Exam
Musculoskeletal Exam: other (pt is wearing boot on right LE )
Skin Exam
Skin Exam: normal color, warm/dry, no rash and no petechia
Psychiatric Exam
Psychiatric Exam: normal mood/affect
Course
<ANABELLA Mccarty - Last Filed: 11/26/23 23:34>
Orders/Labs/Results
Orders:
Orders
11/26/23 22:53
B-Hydroxybutyrate Urgent
Comment: ADD ON
Complete Blood Count/With Diff Urgent
Comprehensive Metabolic Panel Urgent
11/26/23 23:22
IV Insert/Care/Rem.- Treatment PRN
0.9% Sodium Chloride 1000 ml [Nss] 1,000 ml IV BOLUS
0.9% Sodium Chloride 1000 ml [Nss] 1,000 ml IV BOLUS
11/26/23 23:44
Arterial Blood Gas Urgent
%Oxygen/Room Air: ra
11/26/23 23:54
Urinalysis Urgent
Date Specimen was Collected: 11/26/23
Time Specimen was Collected: 23:53
Urine Microscopic Urgent
Date Specimen was Collected: 11/26/23
Time Specimen was Collected: 23:53
11/27/23 00:55
Glucose Urgent
Abnormal Lab Results
11/26/23 11/26/23 11/26/23
22:52 22:53 23:44
WBC 3.7 L 10^3/uL
(4.8-10.8)
RBC 3.11 L 10^6/uL
(4.70-6.10)
Hgb 9.9 L g/dL
(13.0-18.0)
Hct 29.7 L %
(39.0-52.0)
MCV 95.5 H fL
(80.0-94.0)
MCH 31.8 H pg
(27.0-31.0)
Absolute Lymphs (auto) 0.7 L 10^3/uL
(1.2-3.4)
Lymphocytes % 19.2 L %
(20.5-51.1)
Monocytes % 11.6 H %
(1.7-9.3)
pCO2 50 H mmHg
(35-48)
pO2 75 L mmHg
(83-108)
HCO3 30.3 H mmol/L
(21-28)
Sodium 132 L mmol/L
(135-145)
BUN 69 H mg/dl
(9-20)
Creatinine 2.2 H mg/dL
(0.7-1.3)
Glucose 597 H* mg/dl
(70-99)
Alkaline Phosphatase 156 H U/L
(38-126)
Total Protein 5.8 L g/dl
(6.3-8.2)
Albumin 3.4 L g/dl
(3.5-5.0)
Urine RBC
Urine Bacteria
Urine Glucose
Urine Albumin
POC Glucose 510 H* mg/dl
(70-99)
11/26/23 11/27/23 11/27/23
23:54 00:49 00:55
WBC
RBC
Hgb
Hct
MCV
MCH
Absolute Lymphs (auto)
Lymphocytes %
Monocytes %
pCO2
pO2
HCO3
Sodium
BUN
Creatinine
Glucose 454 H* mg/dl
(70-99)
Alkaline Phosphatase
Total Protein
Albumin
Urine RBC 3-6 A /HPF
(0-2)
Urine Bacteria Few A
(Negative)
Urine Glucose 3+ A
(Negative)
Urine Albumin 1+ A
(Neg - Trace)
POC Glucose 459 H* mg/dl
(70-99)
11/27/23
02:16
WBC
RBC
Hgb
Hct
MCV
MCH
Absolute Lymphs (auto)
Lymphocytes %
Monocytes %
pCO2
pO2
HCO3
Sodium
BUN
Creatinine
Glucose
Alkaline Phosphatase
Total Protein
Albumin
Urine RBC
Urine Bacteria
Urine Glucose
Urine Albumin
POC Glucose 380 H mg/dl
(70-99)
11/26/23 22:53
11/27/23 00:55
Vital Signs
Initial and Last Documented VS:
Initial Vital Signs
Temp Pulse Resp BP Pulse Ox
98.3 F 78 16 182/95 94
11/26/23 22:48 11/26/23 22:48 11/26/23 22:48 11/26/23 22:48 11/26/23 22:48
Last Documented Vital Signs
Temp Pulse Resp BP Pulse Ox
98.3 F 81 12 156/71 94
11/26/23 22:48 11/27/23 02:15 11/27/23 02:15 11/27/23 01:00 11/27/23 02:15
<Júnior Reed, DO - Last Filed: 11/27/23 02:36>
Orders/Labs/Results
Orders:
Orders
11/26/23 22:53
B-Hydroxybutyrate Urgent
Comment: ADD ON
Complete Blood Count/With Diff Urgent
Comprehensive Metabolic Panel Urgent
11/26/23 23:22
IV Insert/Care/Rem.- Treatment PRN
0.9% Sodium Chloride 1000 ml [Nss] 1,000 ml IV BOLUS
0.9% Sodium Chloride 1000 ml [Nss] 1,000 ml IV BOLUS
11/26/23 23:44
Arterial Blood Gas Urgent
%Oxygen/Room Air: ra
11/26/23 23:54
Urinalysis Urgent
Date Specimen was Collected: 11/26/23
Time Specimen was Collected: 23:53
Urine Microscopic Urgent
Date Specimen was Collected: 11/26/23
Time Specimen was Collected: 23:53
11/27/23 00:55
Glucose Urgent
Abnormal Lab Results
11/26/23 11/26/23 11/26/23
22:52 22:53 23:44
WBC 3.7 L 10^3/uL
(4.8-10.8)
RBC 3.11 L 10^6/uL
(4.70-6.10)
Hgb 9.9 L g/dL
(13.0-18.0)
Hct 29.7 L %
(39.0-52.0)
MCV 95.5 H fL
(80.0-94.0)
MCH 31.8 H pg
(27.0-31.0)
Absolute Lymphs (auto) 0.7 L 10^3/uL
(1.2-3.4)
Lymphocytes % 19.2 L %
(20.5-51.1)
Monocytes % 11.6 H %
(1.7-9.3)
pCO2 50 H mmHg
(35-48)
pO2 75 L mmHg
(83-108)
HCO3 30.3 H mmol/L
(21-28)
Sodium 132 L mmol/L
(135-145)
BUN 69 H mg/dl
(9-20)
Creatinine 2.2 H mg/dL
(0.7-1.3)
Glucose 597 H* mg/dl
(70-99)
Alkaline Phosphatase 156 H U/L
(38-126)
Total Protein 5.8 L g/dl
(6.3-8.2)
Albumin 3.4 L g/dl
(3.5-5.0)
Urine RBC
Urine Bacteria
Urine Glucose
Urine Albumin
POC Glucose 510 H* mg/dl
(99)
11/26/23 11/27/23 11/27/23
23:54 00:49 00:55
WBC
RBC
Hgb
Hct
MCV
MCH
Absolute Lymphs (auto)
Lymphocytes %
Monocytes %
pCO2
pO2
HCO3
Sodium
BUN
Creatinine
Glucose 454 H* mg/dl
()
Alkaline Phosphatase
Total Protein
Albumin
Urine RBC 3-6 A /HPF
(0-2)
Urine Bacteria Few A
(Negative)
Urine Glucose 3+ A
(Negative)
Urine Albumin 1+ A
(Neg - Trace)
POC Glucose 459 H* mg/dl
(99)
11/27/23
02:16
WBC
RBC
Hgb
Hct
MCV
MCH
Absolute Lymphs (auto)
Lymphocytes %
Monocytes %
pCO2
pO2
HCO3
Sodium
BUN
Creatinine
Glucose
Alkaline Phosphatase
Total Protein
Albumin
Urine RBC
Urine Bacteria
Urine Glucose
Urine Albumin
POC Glucose 380 H mg/dl
(70-99)
11/26/23 22:53
11/27/23 00:55
Vital Signs
Initial and Last Documented VS:
Initial Vital Signs
Temp Pulse Resp BP Pulse Ox
98.3 F 78 16 182/95 94
11/26/23 22:48 11/26/23 22:48 11/26/23 22:48 11/26/23 22:48 11/26/23 22:48
Last Documented Vital Signs
Temp Pulse Resp BP Pulse Ox
98.3 F 81 12 156/71 94
11/26/23 22:48 11/27/23 02:15 11/27/23 02:15 11/27/23 01:00 11/27/23 02:15
<ANABELLA Mccarty - Last Filed: 11/26/23 23:34>
MDM/Problems Addressed
Differential Diagnosis Includes:
hyperglycemia
HHS
DKA
MDM/Problems Addressed:
high blood sugar
<Júnior Reed DO - Last Filed: 11/27/23 02:36>
MDM/Problems Addressed
Chronic conditions affecting care: DM
<ANABELLA Mccarty - Last Filed: 11/26/23 23:34>
*Critical Care Note
Total Time (30-74mins, 75-104mins- exclusive of procedures): Not Applicable
ED Attending Note
<ANABELLA Mccarty - Last Filed: 11/26/23 23:34>
-
Portions of this chart may have been created with voice recognition software.� Occasional wrong word or��sound alike� substitutions may have occurred due to the inherent limitations of voice recognition software.
<Júnior Reed, DO - Last Filed: 11/27/23 02:36>
ED Attending Note
Patient seen and examined by attending physician: Yes
I performed the substantive portion of visit, reviewed & personally made and approve the management plan that is documented in note by myself or ELISE.: Yes
ED Attending Note:
Pleasant 58-year-old male presents with hyperglycemia. This was noted at his rehab facility. Patient states that he is on a sliding scale and was given insulin at his facility. He feels that it was insufficient. His blood sugar was over 600 as
measured at the facility and he received 7 units of insulin. Upon arrival his blood sugar was 510. Patient reports no recent illnesses. He feels that he is being underdosed. Patient does take Farxiga and his normal insulin. Patient currently
has no complaints. Patient was seen in conjunction with the PA student. I have reviewed and agree with the history and treatment plan presented. On my independent physical exam, patient is awake, alert, and oriented x3, resting comfortably in the
bed. Heart is regular rate rhythm. Lungs are clear to auscultation bilaterally no wheezes rales or rhonchi present. Patient is mentating appropriately.
Plan is to recheck blood glucose
11/27/2023 0227 AM: Blood sugar 380. Pt to be discharged home to continue following his sliding scale.
Discharge Plan
Departure
Patient Disposition: Shelter/SNF
Date of Disposition: 11/27/23
Time of Disposition: 02:35
Patient with high blood pressure during this ER visit?: Yes
Condition: Good
Discharge Problem:
Acute hyperglycemia
Instructions: High Blood Sugar, Adult (DC)
Prescriptions:
No Action
atorvastatin 40 MG tablet
40 mg PO HS
levothyroxine [Synthroid] 112 mcg Tablet
112 mcg PO DAILY
torsemide 20 mg Tablet
20 mg PO DAILY
therapeutic multivitamin Tablet
1 tab PO DAILY
dapagliflozin propanediol [Farxiga] 10 mg Tablet
10 mg PO DAILY
Entresto 49-51 mg Tablet
1 tab PO BID
aspirin 325 mg tablet,delayed release (DR/EC)
325 mg PO DAILY 16 Days Qty: 16 0RF
acetaminophen 325 mg tablet
650 mg PO Q6HPRN PRN (Reason: mild pain/ fever>100F)
magnesium hydroxide [Milk of Magnesia] 400 mg/5 mL Suspension
30 ml PO DAILY PRN (Reason: if no BM in 3 days )
bisacodyl [Dulcolax (bisacodyl)] 10 mg Suppository
10 mg MO DAILY PRN (Reason: if MOM ineffective after 24 hrs )
Fleet Enema 19-7 gram/118 mL Enema
118 ml MO DAILY PRN (Reason: if dulcolax is ineffective after 24 hrs )
calcium carbonate [Oyster Shell Calcium 500] 500 mg calcium (1,250 mg) Tablet
1,000 mg PO BID Qty: 30 0RF
cholecalciferol (vitamin D3) [Vitamin D3] 10 mcg (400 unit) Tablet
20 mcg PO DAILY Qty: 30 0RF
insulin aspart U-100 100 unit/mL (3 mL) Insulin Pen
5 unit SC DAILY@1630 Qty: 0 0RF
insulin aspart U-100 100 unit/mL (3 mL) Insulin Pen
7 unit SC DAILY@0730 Qty: 0 0RF
insulin aspart U-100 100 unit/mL (3 mL) Insulin Pen
7 unit SC DAILY@1130 Qty: 0 0RF
carvedilol 25 mg Tablet
25 mg PO BID Qty: 0 0RF
hydralazine 50 mg Tablet
50 mg PO TID Qty: 90 0RF
Insulin Glargine Lantus [Lantus] 12 UNITS
Subcutaneous Insulin Syringe [Syringe-Insulin] 0 UNIT
As Directed mls/hr SC DAILY
Ordered By: Richard Burnham MD
Last Taken: Unknown
polyethylene glycol 3350 [HealthyLax] 17 gram powder in packet
17 g PO DAILY Qty: 0 0RF
Referrals:
PRIVATE,PHYSICIAN [Family Provider] -
Activity Restrictions/Additional Instructions:
Please continue your sliding scale insulin usage, as discussed
It was a pleasure meeting you and taking part in your care. We hope for your continued healing and wellness.
Please read discharge instructions in their entirety. However, they are for general education and may not describe your exact diagnosis at discharge. Information on your ER visit and medical conditions were discussed with you along with appropriate
follow up information...
If indicated, please take your medications as instructed and indicated on discharge paperwork.
Please schedule a follow up appointment as directed. Call to schedule an appointment
Please return to the emergency department with ANY change in, persisting, or worsening of symptoms. If any of your symptoms do not improve, or persist, or become more severe within 6-12 hours, please return to the emergency department for further
care.
Please return to the emergency department if you develop a headache, neck pain/stiffness, fever greater than 100.4F, chest pain, shortness of breath, persistent nausea, vomiting, slurred speech, difficulty walking, numbness/tingling, weakness, signs
of infection or any other symptoms that are worrisome to you.
If you have any questions or concerns please do not hesitate to call the Hospital at or E-mail me directly at [email or web address]
Interventions
Interventions:
*Risk Screen - Suicide Last Done: 11/26/23 23:20
*General Assessment Last Done: 11/26/23 23:20
*Neglect/Abuse Screening Last Done: 11/26/23 23:20
ED- Fall Risk Assessment Last Done: 11/26/23 23:20
*ED COVID-19 Vaccine History Last Done: 11/27/23 02:29
ED- Neurological Assessment Last Done: 11/26/23 23:20
Discharge Date and Time
Print Language: [place]
[2023-11-26] MEDS: NSS 1000 IV (23:40)
[2023-11-26 23:41] LABS: ALT (SGPT) 13 U/L (0-50); AST (SGOT) 23 U/L (17-59); Albumin 3.4 g/dl (3.5-5.0); Alkaline Phosphatase 156 U/L (38-126); Blood Urea Nitrogen 69 mg/dl (9-20); Calcium 8.9 mg/dl (8.4-10.2); Carbon Dioxide 26 mmol/L (22-30); Chloride 100 mmol/L (98-107); Glucose 597 mg/dl (70-99); Potassium 4.4 mmol/L (3.5-5.1); Sodium 132 mmol/L (135-145); Total Bilirubin 0.4 mg/dl (0.2-1.3); Total Protein 5.8 g/dl (6.3-8.2); eGFR 34.08
[2023-11-26 23:57] LABS: B.E. 4.6 mmol/L; HCO3 30.3 mmol/L (21-28); O2 Saturation % 97.2 % (94-98); PCO2 50 mmHg (35-48); PO2 75 mmHg (83-108); pH 7.39 (7.35-7.45)
[2023-11-26 23:59] LABS: O2 Therapy ROOM AIR
[2023-11-27] VITALS: BP 180/87
[2023-11-27 00:07] LABS: B-Hydroxybutyrate 0.08 mmol/L (0.02-0.27)
[2023-11-27 00:25] LABS: Urine Albumin 1+ (Neg - Trace); Urine Bilirubin Negative (Negative); Urine Character Clear (Clear); Urine Color Yellow; Urine Glucose 3+ (Negative); Urine Ketone Negative (Negative); Urine Leukocyte Negative (Negative); Urine Nitrite Negative (Negative); Urine Occult Blood Negative (Negative); Urine Urobilinogen Negative (Neg - 1+)
[2023-11-27 00:48] LABS: Urine Bacteria Few (Negative); Urine White Cell 0-2 /HPF (0-5)
[2023-11-27 00:50] LABS: Glucose - Point of Care 459 mg/dl (70-99)
[2023-11-27 01:00] VITALS: BP 156/71
[2023-11-27 01:19] LABS: Glucose 454 mg/dl (70-99)
[2023-11-27] MEDS: NSS 1000 IV (01:23)
[2023-11-27 02:17] LABS: Glucose - Point of Care 380 mg/dl (70-99)
== END 2023-11-27 05:00 ==
LOC: EMR 22:45
PROVIDERS: Emergency Medicine; EMERGENCY PHYSICIAN Student in an Organized Health Care Education/Training Program
DX: E11.65 Type 2 diabetes mellitus with hyperglycemia (principal); I10 Essential (primary) hypertension; Z87.891 Personal history of nicotine dependence
CPT/HCPCS: 99284; 96360; 96361; 80053; 81003; 81015; 82010; 82805; 82947; 82962; 85025

== ENCOUNTER → 2023-12-28 09:48 | Outpatient (REF) | payer OTHER, SELFPAY | LOC: HWRAD 09:48 | PROVIDERS: ATTENDING PHYSICIAN Nurse Practitioner Gerontology; FAMILY PHYSICIAN Internal Medicine | DX: N13.2 Hydronephrosis with renal and ureteral calculous obstruction (principal) | CPT/HCPCS: 74176 ==

== ENCOUNTER 2024-04-19 05:55 | Day surgery (SDC) | payer OTHER, SELFPAY ==
[2024-04-14 08:05] VITALS: BMI 19.4
[2024-04-14 08:50] LABS: % Basophils 0.4 % (0-2); % Eosinophils 3.6 % (0-6); % Lymphocytes 27.2 % (20.5-51.1); % Monocytes 12.5 % (1.7-9.3); % Neutrophils 56.3 % (42.2-75.2); Absolute Eosinophils 0.2 10^3/uL (0-0.7); Absolute Lymphocytes 1.2 10^3/uL (1.2-3.4); Absolute Monocytes 0.6 10^3/uL (0.1-0.6); Absolute Neutrophils 2.5 10^3/uL (1.4-6.5); Hematocrit 26.2 % (39.0-52.0); Hemoglobin 8.9 g/dL (13.0-18.0); Mean Corpuscular Hgb 31.9 pg (27.0-31.0); Mean Corpuscular Volume 93.9 fL (80.0-94.0); Mean Platelet Volume 9.2 fL (7.4-10.4); Nucleated Red Blood Cells % 0 % (-); Platelet Count 176 10^3/uL (130-400); Red Blood Cell Count 2.79 10^6/uL (4.70-6.10); Red Cell Dist. Width 11.9 % (11.5-14.5); White Blood Cell Count 4.5 10^3/uL (4.8-10.8)
[2024-04-14 10:47] LABS: Blood Urea Nitrogen 54 mg/dl (9-20); Calcium 9.2 mg/dl (8.4-10.2); Carbon Dioxide 29 mmol/L (22-30); Chloride 104 mmol/L (98-107); Estimated Creatinine Clearance 23 ml/min; Glucose 213 mg/dl (70-99); Potassium 4.4 mmol/L (3.5-5.1); Sodium 141 mmol/L (135-145); eGFR 24.31
--- NOTE | 2024-04-15 09:37 | PTCARENOTE ---
Sherine in Dr. Evans's office made aware of Cr 2.9 and HGB 8.9.
[2024-04-19] VITALS (19 sets, daily range): BP systolic 100–222; BP diastolic 50–101; BMI 19.4
[2024-04-19] MEDS: TYLENOL 1000 MG PO (07:10)
[2024-04-19] MEDS: CELEBREX 200 MG PO (07:11)
[2024-04-19 07:17] LABS: Glucose - Point of Care 126 mg/dl (70-99)
[2024-04-19] MEDS: NORMOSOL-R 1000 IV (07:19)
[2024-04-19 08:20] LABS: Glucose - Point of Care 111 mg/dl (70-99)
[2024-04-19] MEDS: APRESOLINE 5 MG IV ×4 (08:50→09:20)
[2024-04-19] MEDS: APRESOLINE 50 MG PO (09:44)
[2024-04-19] MEDS: COREG 25 MG PO (09:44)
[2024-04-19] MEDS: DEMADEX 20 MG PO (09:45)
== END 2024-04-19 11:20 | disposition home or self-care (01) ==
LOC: SDS 05:55
PROVIDERS: ATTENDING PHYSICIAN Orthopaedic Surgery
DX: S82.261 Displaced segmental fracture of shaft of right tibia (principal); X58.XXXD Exposure to other specified factors, subsequent encounter
CPT/HCPCS: 20680; 73590; 76000; 80048; 82962; 85025; 93005

== ENCOUNTER 2024-11-17 13:07 | Inpatient (IN) | payer OTHER, SELFPAY ==
[2024-11-17] VITALS (9 sets, daily range): BP systolic 151–195; BP diastolic 80–103; BMI 21.5
--- NOTE | 2024-11-17 11:07 | ED.GENMED ---
History of Present Illness
General
Chief Complaint: Cardiac Symptoms
Source: patient
Exam Limitations: none
Time Seen by Provider: 11/17/24 10:45
Nursing documentation reviewed up to this point in time: agreed with
History of Present Illness
History of Present Illness:
59-year-old male with history CHF, CAD s/p stent placement 2022, diabetes presenting to the emergency department for evaluation of worsening dyspnea over the past month. Patient states he notices shortness of breath almost daily both in the morning
while lying flat and with exertion. He denies any associated chest pain, lower extremity swelling. No known recent weight gain. No fever or cough.
Patient was seen by PCP yesterday for regular scheduled appointment and had lab work obtained. He was contacted today saying based on his lab work they believe he is having an acute CHF exacerbation referred to the emergency department for
evaluation.
Patient is not on any supplemental O2 at home.
Patient somewhat poor historian and unknown if he is still taking torsemide 20 mg for CHF as written medication list.
Past History
Past History
ED Past Medical History: HTN, Hypercholesterolemia and IDDM
ED Past Surgical History: None
Social History
Tobacco: Former smoker
Alcohol: Occasional
Personal:
Living: with family
Employment: Other
Review of Systems
Review of Systems
Allergies reviewed?: Yes
All Other Systems: ROS reviewed and negative except as documented in HPI and ROS
Phy Exam
Physical Exam
Physical Exam:
Vitals: 88% on room air. Hypertensive
General: Patient is well appearing, no acute distress
Skin: Warm and dry, no rashes or lesions
Head: Normocephalic, atraumatic
Eyes: Sclera nonicteric. EOMs intact. No nystagmus.
Throat: Protecting airway
Neck: Normal ROM, no cervical spine tenderness, no meningismus. No JVD
Cardiac: Regular rate and rhythm, no murmurs.
Pulm: On 2 L nasal cannula. No apparent respiratory stress. Fine crackles at bases
Abdomen: Abdomen soft and nontender.
Extremities: No evidence of cyanosis or edema. DP pulses palpable bilaterally.
Neuro: AAOx3. Grossly intact.
Psychiatric: Normal affect.
Course
Orders/Labs/Results
Orders:
Orders
11/17/24 10:14
Electrocardiogram (*1) Urgent
Reason for Study: Shortness of Breath
EKG- Treatment ONCE
11/17/24 11:05
CR Chest - 2 Views Urgent
Comment:
Reason For Exam: SOB
11/17/24 11:09
COVID-19 Antigen Urgent
Source: Nasal Swab
Complete Blood Count/With Diff Urgent
Comprehensive Metabolic Panel Urgent
NT-proBNP Urgent
Troponin I Urgent
Influenza A+B Rapid Molecular Urgent
JHON Source: Nasal Swab
Specimen Description:
11/17/24 12:20
Furosemide [Lasix] 40 mg IV NOW STA
11/17/24 12:50
Admit/Transfer Patient As Directed
Co-Sign Provider:
Level of Care: Inpatient admission
Assign to:: Telemetry
Physician / Group: linda
Diagnosis: acute chf exacerbation, pneumonia
Reason for Telemetry: Arrhythmia
Date to Stop Telemetry: 11/20/24
Time to Stop Telemetry: 11:00
Reason for Hospitalization: acute chf exacerbation, pneumonia
Expected length of stay greater than two midnights?: Yes
ELOS- Estimated Length of Stay in days: 2
I certify the patient meets the requirements for IP care: Yes
11/17/24 12:51
PRN Pain Medication Management As Directed
May give lesser potent ordered pain med per pt: Yes
preference::
Protocol:: Medication orders for pain may be administered in a
manner that supports deferring to patient preference
when the pt is:
- Requesting an ordered lesser potent pain medication.
Least to most potent pain medications are defined
as: acetaminophen < NSAID < tramadol < opioids
(morphine, oxycodone, hydromorphone).
- Requesting a lesser dose of the same medication IF
ORDERED.
- Requesting a less intrusive route of administration
if both routes are prescribed by the provider (PO <
IV).
11/17/24 12:52
Code Status As Directed
Resuscitation Status: Full Code
11/17/24 12:53
HydrALAZINE [Apresoline] 10 mg IV NOW STA
11/17/24 14:00
CefTRIAXone [Rocephin] 1,000 mg IV Q24H
11/17/24 14:20
Dextrose 50%-Water [Dextrose 50% Syringe] 12.5 grams IV [id number] PRN
Glucagon [GlucaGen] 1 mg IM PRN PRN
11/17/24 14:20
Activity As Directed
Activity Level: As Tolerated
Bedside Glucose Monitoring As Directed
Frequency: AC&HS
Additional Instructions:: Change to q6h if pt on TPN, tube feeding or not eating
Intake/ Output As Directed
Frequency: q12h
Patient Education As Directed
Type: CHF folder
Comment: give on admission. Document in Interdisciplinary Education record
Sleep Apnea Assessment by RN As Directed
Comment:
Physician Instructions:
Vital Signs As Directed
Frequency: Other
Additional Instructions:: Q12 or per unit guidelines if more frequent.
Weight As Directed
Frequency: Daily
Type of Scale: Standing Scale
Comment: Daily morning weight. If unable to stand, use balanced bed scale.
Weight As Directed
Frequency: Once
Type of Scale: Standing Scale
Comment: Upon Admission. If unable to stand, use balanced bed scale.
Pulse Ox/cont/shift [RESP] Routine
Quantity: 1
Special Instructions: Daily pulse oximetry at rest. If greater than 92% at rest also obtain pulse oximetry
while ambulating as tolerated.
DX Deep Vein Thrombosis Video Routine
11/17/24 14:30
Doxycycline Hyclate [Vibramycin] 100 mg 0.9% Sodium Chloride 250 ml [Nss] 250 ml IV Q12H
11/17/24 Dinner
Cholesterol Lowering
At Your Request: Full Participation
Does patient need a safe tray?: No
Cholesterol Lowering: Sodium, 2 Gram
1999 araceli CHO Diabetic
11/17/24 16:30
Insulin Aspart Corrective Low [Novolog Flexpen-Low Resistance] See Protocol SC AC
11/17/24 20:00
Heparin 5,000 units SC Q12
11/18/24 06:00
Complete Blood Count/With Diff IN AM
Comprehensive Metabolic Panel IN AM
Glycohemoglobin (HgbA1c) IN AM
11/18/24 08:00
Furosemide [Lasix] 40 mg IV DAILY
11/20/24 11:00
DC Protocol for Telemetry ONCE
Abnormal Lab Results
11/17/24
11:09
RBC 3.19 L 10^6/uL
(4.70-6.10)
Hgb 10.6 L g/dL
(13.0-18.0)
Hct 31.3 L %
(39.0-52.0)
MCV 98.1 H fL
(80.0-94.0)
MCH 33.2 H pg
(27.0-31.0)
Absolute Lymphs (auto) 0.9 L 10^3/uL
(1.2-3.4)
Lymphocytes % 17.8 L %
(20.5-51.1)
BUN 44 H mg/dl
(9-20)
Creatinine 2.9 H mg/dL
(0.7-1.3)
Glucose 244 H mg/dl
(70-99)
Total Protein 6.0 L g/dl
(6.3-8.2)
11/17/24 11:09
11/17/24 11:09
Vital Signs
Initial and Last Documented VS:
Initial Vital Signs
Temp Pulse Resp BP Pulse Ox
98.3 F 68 16 186/96 95
11/17/24 10:13 11/17/24 10:13 11/17/24 10:13 11/17/24 10:13 11/17/24 10:13
Last Documented Vital Signs
Temp Pulse Resp BP Pulse Ox
98.1 F 67 18 185/90 98
11/17/24 19:36 11/17/24 19:36 11/17/24 19:36 11/17/24 19:36 11/17/24 19:36
MDM/Problems Addressed
Differential Diagnosis Includes:
Not limited to: CHF exacerbation, ACS, pneumonia, bronchitis, pleural effusion, etc.
MDM/Problems Addressed:
59-year-old male with history as documented presenting with progressively worsening dyspnea over the past month�sent by PCP with abnormal labs and concern for acute CHF exacerbation. Patient found to be hypoxic to 88% on room air upon arrival and
placed on 2 L nasal cannula. He is otherwise hypertensive but stable. Physical exam as above. Lungs with mild bibasilar crackles, otherwise clear. Heart regular rate and rhythm. No evidence of peripheral edema on exam. Patient somewhat poor
historian, unknown if he has been taking his prescribed torsemide. Symptoms possibly secondary to acute CHF exacerbation secondary to poor medication compliance and hypertension. Will check basic labs BNP, troponin, viral studies, and chest x-ray.
Lower suspicion for infectious process given patient is afebrile with no other infectious symptoms. EKG that was initiated in triage does show some T wave inversions noted in lateral leads. Patient appears comfortable on 2 L nasal cannula and in
no apparent respiratory distress. Workup in progress
Update: Labs reviewed. CBC with mild anemia which appears stable. Chemistry with mild renal insufficiency which appears at baseline. Troponin 0.026. BNP> 27,000. Chest x-ray on my interpretation shows mild pulmonary edema. Official with
concern of pneumonia although overall low suspicion for infectious process at this time. Will hold on antibiotics. Patient will require admission to hospital for CHF exacerbation requiring supplemental O2. 40 mg IV Lasix given in ED. Patient
excepted to hospitalist service in stable condition for further workup/management.
Chronic conditions affecting care:
Congestive heart failure, hypertension, diabetes
Acute Exacerbation and/or Progression of Chronic Illness:
Acute CHF exacerbation, acutely hypertensive, acute hyperglycemia
*Radiology
Radiology exam reviewed: preliminary read by ED provider (Mild pulmonary edema) and radiology read reviewed
*Pulse Oximetry
Patient hypoxic: yes (88% on room air-placed on 2 L)
*EKG
Interpreted by ED Provider?: Yes
EKG Intrepretation Date: 11/17/24
Interpretation: abnormal
Comparison EKG: changes noted
Heart Rate: 73
Rate: normal
Rhythm: sinus
[place]: normal axis
Interval: normal QT interval
QRS Pattern: left vent hypertrophy
Ischemia: T-wave inversion (T wave inversions in lateral leads)
*Public [employer] Specialist Interpretation
Rate: normal
Interpretation: normal
Heart Rate: 68
Rhythm: sinus
*Critical Care Note
Total Time (30-74mins, 75-104mins- exclusive of procedures): Not Applicable
Data Reviewed
Review of Other/Old Records Reveals: Testing (Cardiac echo from 11/02/2023-EF 45-50%)
Patient Management
Discussion with other providers: Hospitalist
Escalation/DeEscalation of care consider admission/obs:
Admit for IV diuresis, further management
ED Attending Note
-
Portions of this chart may have been created with voice recognition software.� Occasional wrong word or��sound alike� substitutions may have occurred due to the inherent limitations of voice recognition software.
Discharge Plan
Departure
Patient Disposition: Admit
Date of Disposition: 11/17/24
Time of Disposition: 12:24
Presentation/result/management discussed w/ accepting MD/DO: Hospitalist
Discharge Problem:
Acute exacerbation of CHF (congestive heart failure)
Interventions
Interventions:
*Risk Screen - Suicide Last Done: 11/17/24 10:14
*General Assessment Last Done: 11/17/24 10:41
*Neglect/Abuse Screening Last Done: 11/17/24 10:14
*ED- Fall Risk Assessment Last Done: 11/17/24 10:42
*ED COVID-19 Vaccine History Last Done: 11/17/24 10:42
*Nursing Disposition Last Done: 11/17/24 14:06
ED- Pulmonary Assessment Last Done: 11/17/24 10:41
ED- Cardiac Assessment Last Done: 11/17/24 10:41
Discharge Date and Time
Discharge Date/Time: 11/17/24 14:18
[2024-11-17 11:20] LABS: % Basophils 0.6 % (0-2); % Eosinophils 3.9 % (0-6); % Immature Granulocytes 0.2 % (0-0.5); % Lymphocytes 17.8 % (20.5-51.1); % Monocytes 8.7 % (1.7-9.3); % Neutrophils 68.8 % (42.2-75.2); Absolute Eosinophils 0.2 10^3/uL (0-0.7); Absolute Lymphocytes 0.9 10^3/uL (1.2-3.4); Absolute Monocytes 0.4 10^3/uL (0.1-0.6); Absolute Neutrophils 3.3 10^3/uL (1.4-6.5); Hematocrit 31.3 % (39.0-52.0); Hemoglobin 10.6 g/dL (13.0-18.0); Mean Corp Hgb Conc. 33.9 g/dL (33.0-37.0); Mean Corpuscular Hgb 33.2 pg (27.0-31.0); Mean Corpuscular Volume 98.1 fL (80.0-94.0); Nucleated Red Blood Cells % 0 % (-); Platelet Count 138 10^3/uL (130-400); Red Blood Cell Count 3.19 10^6/uL (4.70-6.10); Red Cell Dist. Width 13.5 % (11.5-14.5); White Blood Cell Count 4.8 10^3/uL (4.8-10.8)
[2024-11-17 11:29] LABS: ALT (SGPT) 15 U/L (0-50); AST (SGOT) 31 U/L (17-59); Albumin 3.5 g/dl (3.5-5.0); Alkaline Phosphatase 111 U/L (38-126); Blood Urea Nitrogen 44 mg/dl (9-20); Calcium 8.6 mg/dl (8.4-10.2); Carbon Dioxide 28 mmol/L (22-30); Chloride 104 mmol/L (98-107); Glucose 244 mg/dl (70-99); Potassium 4.2 mmol/L (3.5-5.1); Sodium 140 mmol/L (135-145); Total Bilirubin 0.6 mg/dl (0.2-1.3); eGFR 24.31
[2024-11-17 11:39] LABS: COVID-19 Antigen Negative (Negative)
[2024-11-17 11:41] LABS: NT-proBNP > 27000 pg/ml; Troponin I 0.026 ng/ml
[2024-11-17] MEDS: LASIX 40 MG IV (12:36)
--- NOTE | 2024-11-17 12:56 | HPS.HSE ---
Addendum entered and electronically signed by Rajinder Gibson MD 11/17/24 13:20:
Patient has JESSENIA that he thinks was diagnosed but does not use CPAP.
Original Note:
Family Physician
-
Family Physician: UBALDO SALVADOR
Chief Complaint
-
shortness of breath
History of Present Illness
59-year-old male past medical history of CAD status post stent, CHF, CKD 4, diabetes, presenting for worsening shortness of breath over the past month. Shortness of breath is worse in the morning while lying flat and with exertion. He has a dry
cough. Denies any chest pain, lower extremity edema. Denies any recent weight gain. Denies any fevers or chills.
His plasticator is Dr. Mayo at the [facility].
He states that he has not been checking his blood pressure for many months and has not been taking his hydralazine for at least 6 months due to not getting his prescription filled. When asked about his other medications he says that he has been
taking most of them but unable to articulate which medications he has not been taking.
He denies smoking or alcohol use.
Medical History
Past Medical History
Past Medical History: Reports Other ( CAD status post stent, CHF, CKD 4, diabetes)
Past Surgical History: Reports None
Social History
Tobacco: Non-smoker
Alcohol: None
Drug: None
Family History
Family History: Not pertinent
Allergies / Home Medications
Allergies reflects when Allergies were last updated in [employer].
Home Medications with original date entered in [employer]
Allergy/Medication List:
Allergies
Allergy/AdvReac Type Severity Reaction Status Date / Time
No Known Allergies Allergy Verified 04/19/24 07:03
Home Medications
atorvastatin 40 mg tablet 40 mg PO HS High Cholesterol 02/05/22
dapagliflozin propanediol 10 mg tablet (Farxiga) 10 mg PO DAILY Diabetes/Heart Failure 11/01/23
levothyroxine 112 mcg tablet (Synthroid) 112 mcg PO DAILY Thyroid 11/01/23
sacubitril 49 mg-valsartan 51 mg tablet (Entresto) 1 tab PO BID Heart Failure 11/01/23
therapeutic multivitamin 1 tab PO DAILY Supplement 11/01/23
torsemide 20 mg tablet 20 mg PO DAILY Fluid Retention/Swelling 11/01/23
acetaminophen 325 mg tablet 650 mg PO Q6HPRN PRN mild pain/ fever>100F 11/17/23
insulin aspart U-100 100 unit/mL (3 mL) subcutaneous pen 7 unit (0.07 mL) SC DAILY@0730 #0 mL 11/23/23
aspirin 81 mg capsule 81 mg PO DAILY 04/15/24
carvedilol 25 mg tablet 25 mg PO DAILY 04/15/24
hydralazine 50 mg tablet 50 mg PO BID 04/15/24
insulin glargine 100 unit/mL (3 mL) subcutaneous pen 23 unit SC DAILY 04/15/24
omega-3 fatty acids 1,000 mg PO DAILY 04/15/24
Review of Systems
-
History Source: Patient
A 12 point ROS was completed and negative except as noted: Yes
Constitutional: Reports No Symptoms
EENT: Reports No Symptoms
Respiratory: Reports See HPI
Cardiac: Reports See HPI
Abdomen/GI: Reports No Symptoms
: Reports No Symptoms
Musculoskeletal: Reports No Symptoms
Skin: Reports No Symptoms
Neurological: Reports No Symptoms
Endocrine: Reports No Symptoms
Hematologic/Lymphatic: Reports No Symptoms
Psych: Reports No Symptoms
Physical Exam
Vital Signs
Vital Signs
Temp Pulse Resp BP Pulse Ox
98.3 F 65 11 188/103 97
11/17/24 10:13 11/17/24 12:00 11/17/24 12:00 11/17/24 12:00 11/17/24 12:00
Physical Exam
General: Well Developed, Well Nourished and No Apparent Distress
HEENT: NormoCephalic, Moist mucous membranes and Atraumatic
Respiratory: Clear
Cardiac: S1/S2 and Regular Rhythm; No Murmur or Rub
GI: Soft, Non Tender, Non Distended and Normal Bowel Sounds; No Organomegaly
Rectal: Deferred by Provider
Musculoskeletal: No Clubbing, No Cyanosis and No Edema
Skin: No Rash
Neuro: Nonfocal/grossly intact
Laboratory Results
-
11/17/24 11:09
11/17/24 11:09
Laboratory Results
Total Bilirubin 0.6 mg/dl (0.2-1.3) 11/17/24 11:09
AST 31 U/L (17-59) 11/17/24 11:09
ALT 15 U/L (0-50) 11/17/24 11:09
Alkaline Phosphatase 111 U/L (38-126) 11/17/24 11:09
Troponin I 0.026 ng/ml 11/17/24 11:09
Data Reviewed
-
Lab Data: Labs Reviewed by me
Old Records: Reviewed
Impression/Plan
-
IMPRESSION:
PLAN:
# Acute on chronic HFrEF exacerbation secondary to uncontrolled hypertension
-Cardiac BNP greater than 27,000 from 3500
-EKG shows normal sinus rhythm, LVH with repolarization abnormality
-Check I's and O's, daily weight
-Lasix 40 IV daily
-Cardiology consulted
# Uncontrolled hypertension due to medication noncompliance
-Technically hypertensive emergency but hypertension likely chronically elevated for several months
-Single IV hydralazine dose, Resume p.o. hydralazine once confirmed
-continue coreg
# Left lower lobe pneumonia with associated small left parapneumonic effusion
-Chest x-ray shows mild left lower lobe pneumonia, small left parapneumonic effusion
-COVID and influenza negative
-Ceftriaxone/doxycycline
CAD status post stents
-continue ASA/statin
Possible JAMAR on CKD 4 versus progressive CKD 4
-Creatinine of 2.9 from 2.3 previously
-Monitor with diuresis
-Hold entresto if still on it
Type 2 diabetes
-Continue Lantus 22 units when confirmed
-Insulin sliding scale
Hypothyroidism
-continue levothyroxine
Anemia of chronic disease
-Stable
Vitamin D deficiency
Hyperlipidemia
History of pulmonary nodules
Full code
DVT prophylaxis�heparin
Cardiac/diabetic diet
[2024-11-17] MEDS: APRESOLINE 10 MG IV (13:13)
--- NOTE | 2024-11-17 13:13 | CM ---
Patient seen at bedside. Patient stated that he lives in an apartment with no DME. Patient son is currently living with him but may return to patient ex while patient in hospital. Patient was in a rehab in the past for a fractured leg. Patient
uses the [facility] on [facility] and his PCP is Dr. King. Patient plan is for discharge home with no needs.
Plan; home with no needs watch for home O2 needs.
--- NOTE | 2024-11-17 13:47 | PHANOTE ---
med rec note- aptient abrly knows what medication he is on, pharmacy is limited since he using mail order. no ecw patient stated he just moved to this area. patient son number not on file, called patient last md office at [phone] got
transferred to [phone] had to fax medical release form to [phone] and [phone]
[2024-11-17] MEDS: VIBRAMYCIN 260 MG IV (15:15)
[2024-11-17] MEDS: ROCEPHIN 1000 MG IV (15:15)
[2024-11-17] MEDS: STERILE WATER FOR INJECTION 10 ML IV (15:15)
--- NOTE | 2024-11-17 15:22 | CON.CAR ---
Addendum entered and electronically signed by Cayden Thomas MD 11/17/24 17:17:
Patient seen and examined
Agree with IMAGING SPECIALIST note and assessment
Agree with DAVID Barcenas's plan
1 to 2 months of increased dyspnea. Symptoms and signs of heart failure noted. He follows with Dr. Mayo for [facility].
����Physical Exam
���������������������General:��no apparent distress, not acutely ill
���������������������������Neck:��supple. no meningeal signs. normal psoterior pharynx������������������������
���������������������������Heart:��s1/s2 regular rate and rhythm, no murmur. equal radial pulses.
��������������������������Lungs: ��no acute respiratory distress. clear bilaterally
����������������������Abdomen:�normal bowel sounds. not tender. no CVAT
��������������������������Neuro:��alert and oriented. no focal neurological deficits
������������������������������Skin: ��no rash
�����������������������Psychiatric:�well kept. interactive and cooperative
�����������������������Extremities:��no edema. no calf tenderness. negative homans. good distal pulses
PCP:Dr. Florez
Outpatient medicine man: Júnior Mayo [facility] cardiology
Impression:
Acute on chronic heart failure, mildly reduced EF
Coronary artery disease
s/p WILMAR of large first septal golf starter and ranger branch 05/2022Ischemic cardiomyopathy, recovered on Echo 02/2023
Myocardial biopsy 06/05/2022 cardiomyocytes with occasional block shaped nuclei, [place] red special stain is negative
Right tib-fib fracture 10/2023 after mechanical fall
Chronic kidney disease
Recurrent pleural effusions follows with Dr. Arenas thoracic surgery
Hypertension
Hyperlipidemia
Hypothyroidism
Type 2 diabetes
Chronic anemia
Obstructive sleep apnea, uses 3 L of oxygen at night
History of Pleural effusion
history of pneumonia
Sinus bradycardia on high dose Coreg (heart rates in 40s while on Coreg 25 mg twice daily)
Right tib-fib fracture 10/2023
Orthostatic hypotension
Echo 11/02/2023: EF 45 to 50%, mild concentric LVH, global hypokinesis, stage I diastolic dysfunction, no significant valvular disease, trivial pericardial effusion
Echo 03/27/2023: EF 65%, mild concentric LVH, stage I DD. No significant valvular disease
Echo 09/25/2022: EF 45%, grade 1 DD. Mildly dilated left atrium. Mild to moderate concentric LVH. Speckled appearance to myocardium consistent with infiltrative disorders such as amyloid.
Cardiac monitoring 03/20 - 03/26/2023: Sinus rhythm, range 63-108 bpm, average 78 bpm. PACs less than 1% burden.
Left heart cath May 2022: 80 to 90% stenosis in large first septal golf starter and ranger branch status post PCI.
RHC May 2022: Mild to moderate PAP 58/20 mmHg. Normal PCWP and CO/CI
05/20/2022 equivocal PYP scan for cardiac amyloid. Light chain ratio was normal. No monoclonal spike.
06/19/2022 status post endomyocardial biopsy which was negative for cardiac amyloid
Plan:
59 YO male with PMH significant for CAD s/p WILMAR of large first septal golf starter and ranger branch 05/2022, waxing and waning cardiomyopathy over the years, most recent echocardiogram 10/2023 at with EF 45 to 50%, chronic kidney disease baseline creatinine
3.0, hypertension, hyperlipidemia, hypothyroidism, recurrent pleural effusions, orthostatic hypotension, diabetes, obstructive sleep apnea who utilizes oxygen at night.
Patient presents to today with shortness of breath with exertion over past 2 to 3 months as well as orthopnea and PND. Saw PCP yesterday and had labs indicating heart failure and advised he come to ED.
ED evaluation notable for proBNP greater than 27,000, troponin 0.026, chest x-ray with mild left lower lobe pneumonia, BUN/creatinine 44/2.9. EKG normal sinus rhythm , lateral T wave inversions, LVH.
Patient reports he has been off all heart failure medications except for torsemide for the past 2 to 3 months.
Acute on chronic heart failure with mildly reduced EF-
-Admit for IV diuresis Lasix 40 mg IV daily
-Begin resuming usual heart failure regimen-will start carvedilol today, monitor renal function before starting Entresto and Farxiga.
-Check echo
-Will restart oral hydralazine at 25 mg 3 times daily. Pt was on Hydralazine 50 mg TID in past, since restarting at same time as restarting Carvedilol, will start hydralazine at lower dose and monitor BP. Given his renal insufficiency I do not feel
that Entresto should be considered in the short-term. Perhaps if his renal function improves this can be considered at some point
-Daily weights, I/O
-Previously had speckling on echocardiogram and underwent amyloid workup including equivocal PYP scan and endometrial biopsy 05/2022 which was negative for cardiac amyloid.
-Tells me his baseline weight is 140 pounds.
CAD status post stenting
-No chest pain
-Continue ASA/statin and resuming beta-tiffany
-Trend troponin and EKGs given troponin 0.026
CKD�
-Creatinine 2.3 when last in 10/2023, then 3.0 02/2024 on outpatient medicine man labs
-Monitor daily with diuresis and will cautiously resume Entresto and Farxiga if able based on renal function
Left lower lobe pneumonia
-Treatment with antibiotics per primary team
Original Note:
Consultation
Consultation Request
Date/Time Consultation Requested: 11/17/2024, 1515
Date/Time Consultation Performed: 11/17/2024,
Requesting Provider: Tasneem Parmar
Performing Provider: DAVID Murphy, for Dr. Snyder
Reason for Consultation: Acute heart failure exacerbation
Medical History
-
Chief Complaint: Shortness of breath
History of Present Illness:
Patient is a 59 YOF with PMH significant for CAD s/p WILMAR of large first septal golf starter and ranger branch 05/2022, waxing and waning cardiomyopathy over the years, most recent echocardiogram 10/2023 at with EF 45 to 50%, chronic kidney disease, baseline
creatinine 3.0, hypertension, hyperlipidemia, hypothyroidism, recurrent pleural effusions, orthostatic hypotension, diabetes, obstructive sleep apnea who utilizes oxygen at night, right tibial/fibular fracture status post ORIF 10/2023 at . During
the 10/2023 hospitalization he had an echocardiogram showing EF 45 to 50%, mild cLVH, global hypokinesis, normal RV size and function, no significant valvular abnormality.
Patient follows with Júnior Mayo, medicine man at [facility]. I was able to obtain records. Patient was last seen in July 2024 and was stable. He was continued on HF medication regimen which included Entresto 49-51 mg twice daily,
carvedilol 12.5 mg twice daily, and Farxiga 10 mg daily, hydralazine 50 mg 3 times daily, and torsemide 20 mg daily.
Since then, patient reports he has been in between jobs and is now on disability. He stopped taking all of the above meds 2-3 months ago, except for torsemide which he has continued. He has also continued taking his insulin and Synthroid. At one
point cost was an issue for meds but he tells me he now has insurance. He recently moved to the [facility] and lives with his son. He is on disability.
He reports shortness of breath with exertion on and off for the past couple months. The last time he felt shortness of breath like this he had pneumonia. He was seen by his PCP yesterday and had labs. He received a call today that his labs
indicated heart failure and was advised to go to the ED. He reports PND and orthopnea. No edema. Denies chest pain, palpitations. Occasionally feels lightheaded when he stands up or goes in the shower. Tells me his baseline weight is 140 pounds.
ED evaluation:
proBNP greater than 27,000
Troponin 0.026
BUN/creatinine 44/2.9, NA 140, K4.2, hemoglobin 10.6
COVID-negative
Chest x-ray with mild left lower lobe pneumonia
EKG normal sinus rhythm , lateral T wave inversions, LVH
Echocardiogram from February 2023 with improved ejection fraction of 65%. He also had abnormal speckling on echo and was worked up for cardiac amyloid with endocardial biopsy which was negative.
Past medical history:
Coronary artery disease
s/p WILMAR of large first septal golf starter and ranger branch 05/2022
Heart failure with recovered cardiomyopathy on echo 02/2023, repeat echo at 10/2023 while hospitalized for tib-fib fracture: EF 45-50%
Myocardial biopsy 06/05/2022 cardiomyocytes with occasional block shaped nuclei, [place] red special stain is negative
Recurrent pleural effusions follows with Dr. Arenas thoracic surgery
Hypertension
Hyperlipidemia
Hypothyroidism
Type 2 diabetes
Chronic anemia
Obstructive sleep apnea, uses 3 L of oxygen at night
History of Pleural effusion
history of pneumonia
Sinus bradycardia on high dose Coreg
Chronic anemia
Orthostatic hypotension
Right tibial/fibular fracture status post surgery 11/03/2023
Past Medical History
Past Medical History: Other (see HPI)
Past Surgical History: Cardiac (s/p WILMAR of large first septal golf starter and ranger branch 05/2022) and Other ([place] teeth extraction, eye surgery, thoracentesis)
Social History
Tobacco: Former Smoker
Alcohol: Occasional
Drug: None
Personal: Other ()
Living: With Family (Step-daughter and her boyfriend)
Employment: Employed ([email or web address])
Family History
Family History: Reviewed & Not Pertinent
Allergies / Home Medications
Allergy/AdvReac Type Severity Reaction Status Date / Time
No Known Allergies Allergy Verified 04/19/24 07:03
�Medication �Instructions �Recorded �Confirmed �Type
atorvastatin 40 mg tablet 40 mg PO HS High Cholesterol 02/05/22 04/19/24 History
levothyroxine 112 mcg tablet 112 mcg PO DAILY Thyroid 11/01/23 04/19/24 History
(Synthroid)
therapeutic multivitamin 1 tab PO DAILY Supplement 11/01/23 04/19/24 History
torsemide 20 mg tablet 20 mg PO DAILY Fluid 11/01/23 04/19/24 History
Retention/Swelling
insulin aspart U-100 100 unit/mL 7 unit (0.07 mL) SC DAILY@0730 #0 11/23/23 04/19/24 Rx
(3 mL) subcutaneous pen mL
hydralazine 50 mg tablet 50 mg PO BID 04/15/24 04/19/24 History
insulin glargine 100 unit/mL (3 23 unit SC DAILY 04/15/24 04/19/24 History
mL) subcutaneous pen
omega-3 fatty acids 1,000 mg PO DAILY 04/15/24 04/19/24 History
Review of Systems
-
History Source: Patient
All other systems: Negative unless noted
Physical Exam
Vital Signs
Temp Pulse Resp BP Pulse Ox
98.1 F 67 18 168/82 99
11/17/24 14:42 11/17/24 14:42 11/17/24 14:42 11/17/24 14:42 11/17/24 14:42
Lab Results
11/17/24 11:09
11/17/24 11:09
Troponin I 0.026 ng/ml 11/17/24 11:09
Gxv-O-Ieqhepzqtak Pept > 40092 pg/ml 11/17/24 11:09
GEN: No distress, awake, Ox3
HEENT: supple, anicteric, mmm
LUNGS: CTA, no wheezes/rales
CV: Reg, S1/S2,no murmur
ABD: soft, BS+, NT/ND
EXT: No edema
NEURO: Gross non-focal
SKIN: No rash
Impression / Plan
-
PCP:Dr. Florez
[facility]
Impression:
Acute on chronic heart failure, mildly reduced EF
Coronary artery disease
s/p WILMAR of large first septal golf starter and ranger branch 05/2022
Ischemic cardiomyopathy, recovered on Echo 02/2023
Myocardial biopsy 06/05/2022 cardiomyocytes with occasional block shaped nuclei, Congo red special stain is negative
Right tib-fib fracture 10/2023 after mechanical fall
Chronic kidney disease
Recurrent pleural effusions follows with Dr. Arenas thoracic surgery
Hypertension
Hyperlipidemia
Hypothyroidism
Type 2 diabetes
Chronic anemia
Obstructive sleep apnea, uses 3 L of oxygen at night
History of Pleural effusion
history of pneumonia
Sinus bradycardia on high dose Coreg (heart rates in 40s while on Coreg 25 mg twice daily)
Right tib-fib fracture 10/2023
Orthostatic hypotension
Echo 11/02/2023: EF 45 to 50%, mild concentric LVH, global hypokinesis, stage I diastolic dysfunction, no significant valvular disease, trivial pericardial effusion
Echo 03/27/2023: EF 65%, mild concentric LVH, stage I DD. No significant valvular disease
Echo 09/25/2022: EF 45%, grade 1 DD. Mildly dilated left atrium. Mild to moderate concentric LVH. Speckled appearance to myocardium consistent with infiltrative disorders such as amyloid.
Cardiac monitoring 03/20 - 03/26/2023: Sinus rhythm, range 63-108 bpm, average 78 bpm. PACs less than 1% burden.
Left heart cath May 2022: 80 to 90% stenosis in large first septal golf starter and ranger branch status post PCI.
RHC May 2022: Mild to moderate PAP 58/20 mmHg. Normal PCWP and CO/CI
05/20/2022 equivocal PYP scan for cardiac amyloid. Light chain ratio was normal. No monoclonal spike.
06/19/2022 status post endomyocardial biopsy which was negative for cardiac amyloid
Plan:
59 YO male with PMH significant for CAD s/p WILMAR of large first septal golf starter and ranger branch 05/2022, waxing and waning cardiomyopathy over the years, most recent echocardiogram 10/2023 at with EF 45 to 50%, chronic kidney disease baseline creatinine
3.0, hypertension, hyperlipidemia, hypothyroidism, recurrent pleural effusions, orthostatic hypotension, diabetes, obstructive sleep apnea who utilizes oxygen at night.
Patient presents to today with shortness of breath with exertion over past 2 to 3 months as well as orthopnea and PND. Saw PCP yesterday and had labs indicating heart failure and advised he come to ED.
ED evaluation notable for proBNP greater than 27,000, troponin 0.026, chest x-ray with mild left lower lobe pneumonia, BUN/creatinine 44/2.9. EKG normal sinus rhythm , lateral T wave inversions, LVH.
Patient reports he has been off all heart failure medications except for torsemide for the past 2 to 3 months.
Acute on chronic heart failure with mildly reduced EF-
-Admit for IV diuresis Lasix 40 mg IV daily
-Begin resuming usual heart failure regimen-will start carvedilol today, monitor renal function before starting Entresto and Farxiga.
-Check echo
-Will restart oral hydralazine at 25 mg 3 times daily. Pt was on Hydralazine 50 mg TID in past, since restarting at same time as restarting Carvedilol, will start hydralazine at lower dose and monitor BP
-Daily weights, I/O
-Previously had speckling on echocardiogram and underwent amyloid workup including equivocal PYP scan and endometrial biopsy 05/2022 which was negative for cardiac amyloid.
-Tells me his baseline weight is 140 pounds.
CAD status post stenting
-No chest pain
-Continue ASA/statin and resuming beta-tiffany
-Trend troponin and EKGs given troponin 0.026
CKD�
-Creatinine 2.3 when last in 10/2023, then 3.0 02/2024 on outpatient medicine man labs
-Monitor daily with diuresis and will cautiously resume Entresto and Farxiga if able based on renal function
Left lower lobe pneumonia
-Treatment with antibiotics per primary team
Data Reviewed
-
EKG: Tracing Personally Visualized and interpreted
Labs: Labs Reviewed by me
Old Records: Requested and Reviewed
Total Time Spent with Patient (in minutes): 30
[2024-11-17 16:35] LABS: Glucose - Point of Care 169 mg/dl (70-99)
[2024-11-17] MEDS: NOVOLOG FLEXPEN-LOW RESISTANCE 1 UNITS SC (16:47)
--- NOTE | 2024-11-17 17:13 | W.PN.UPDATE ---
Update Note
Progress Note Update
Patient seen and examined
Full consult to follow
Diuresis IV for congestive heart failure
Maintain telemetry during diuresis
We will follow with you
[2024-11-17] MEDS: APRESOLINE 25 MG PO (21:04)
[2024-11-17] MEDS: LIPITOR 40 MG PO (21:04)
[2024-11-17] MEDS: HEPARIN 5000 UNITS SC (21:04)
[2024-11-17] MEDS: COREG 12.5 MG PO (21:04)
[2024-11-17 21:46] LABS: Glucose - Point of Care 280 mg/dl (70-99)
[2024-11-18] MEDS: VIBRAMYCIN 260 MG IV ×2 (02:32→15:27)
[2024-11-18 03:52] VITALS: BP 164/76
[2024-11-18] MEDS: SYNTHROID 112 MCG PO (06:02)
[2024-11-18 06:18] LABS: % Basophils 0.2 % (0-2); % Eosinophils 4.6 % (0-6); % Immature Granulocytes 0.2 % (0-0.5); % Lymphocytes 18.1 % (20.5-51.1); % Monocytes 9.5 % (1.7-9.3); % Neutrophils 67.4 % (42.2-75.2); Absolute Eosinophils 0.2 10^3/uL (0-0.7); Absolute Lymphocytes 0.7 10^3/uL (1.2-3.4); Absolute Monocytes 0.4 10^3/uL (0.1-0.6); Absolute Neutrophils 2.8 10^3/uL (1.4-6.5); Hematocrit 28.1 % (39.0-52.0); Hemoglobin 9.4 g/dL (13.0-18.0); Mean Corp Hgb Conc. 33.5 g/dL (33.0-37.0); Mean Corpuscular Hgb 32.9 pg (27.0-31.0); Mean Corpuscular Volume 98.3 fL (80.0-94.0); Mean Platelet Volume 10.8 fL (7.4-10.4); Nucleated Red Blood Cells % 0 % (-); Platelet Count 139 10^3/uL (130-400); Red Blood Cell Count 2.86 10^6/uL (4.70-6.10); Red Cell Dist. Width 13.2 % (11.5-14.5); White Blood Cell Count 4.1 10^3/uL (4.8-10.8)
[2024-11-18 06:41] LABS: ALT (SGPT) 11 U/L (0-50); AST (SGOT) 28 U/L (17-59); Albumin 2.9 g/dl (3.5-5.0); Alkaline Phosphatase 98 U/L (38-126); Blood Urea Nitrogen 46 mg/dl (9-20); Calcium 8.2 mg/dl (8.4-10.2); Carbon Dioxide 30 mmol/L (22-30); Chloride 103 mmol/L (98-107); Estimated Creatinine Clearance 26 ml/min; Glucose 186 mg/dl (70-99); Potassium 4.2 mmol/L (3.5-5.1); Sodium 137 mmol/L (135-145); Total Bilirubin 0.6 mg/dl (0.2-1.3); Total Protein 5.1 g/dl (6.3-8.2); eGFR 26.49
[2024-11-18 07:04] VITALS: BP 185/92
[2024-11-18 08:05] LABS: Glucose - Point of Care 232 mg/dl (70-99)
[2024-11-18 09:35] VITALS: BMI 21.3
[2024-11-18] MEDS: ASPIR LOW (ENTERIC COATED) 81 MG PO (09:36)
[2024-11-18] MEDS: APRESOLINE 25 MG PO ×3 (09:36→21:27)
[2024-11-18] MEDS: FARXIGA 10 MG PO (09:36)
[2024-11-18] MEDS: LASIX 40 MG IV (09:37)
[2024-11-18] MEDS: HEPARIN 5000 UNITS SC ×2 (09:37→21:26)
[2024-11-18] MEDS: COREG 12.5 MG PO ×2 (09:37→21:27)
[2024-11-18] MEDS: LANTUS 0.23 UNITS SC (09:40)
[2024-11-18] MEDS: NOVOLOG FLEXPEN-LOW RESISTANCE 2 UNITS SC ×2 (09:41→18:00)
[2024-11-18 11:00] VITALS: BP 168/90
[2024-11-18 11:42] LABS: Glucose - Point of Care 384 mg/dl (70-99)
[2024-11-18] MEDS: NOVOLOG FLEXPEN-LOW RESISTANCE 5 UNITS SC (12:37)
--- NOTE | 2024-11-18 12:40 | W.PN.CARDCBS ---
Today's Communication / Plan
-
Continue IV diuresis with improved renal function with creatinine of 2.7. Check echocardiogram. Consider change to oral Lasix and resume Entresto in the next 24 hours.
Impression / Plan
-
PCP:Dr. Florez
Outpatient internal grinder tender: Júnior Puako [facility] cardiology
Impression:
Acute on chronic heart failure, mildly reduced EF
Coronary artery disease
s/p WILMAR of large first septal shoes salesperson branch 05/2022
Ischemic cardiomyopathy, recovered on Echo 02/2023
Myocardial biopsy 06/05/2022 cardiomyocytes with occasional block shaped nuclei, [place] red special stain is negative
Right tib-fib fracture 10/2023 after mechanical fall
Chronic kidney disease
Recurrent pleural effusions follows with Dr. Arenas thoracic surgery
Hypertension
Hyperlipidemia
Hypothyroidism
Type 2 diabetes
Chronic anemia
Obstructive sleep apnea, uses 3 L of oxygen at night
History of Pleural effusion
history of pneumonia
Sinus bradycardia on high dose Coreg (heart rates in 40s while on Coreg 25 mg twice daily)
Right tib-fib fracture 10/2023
Orthostatic hypotension
Echo 11/02/2023: EF 45 to 50%, mild concentric LVH, global hypokinesis, stage I diastolic dysfunction, no significant valvular disease, trivial pericardial effusion
Echo 03/27/2023: EF 65%, mild concentric LVH, stage I DD. No significant valvular disease
Echo 09/25/2022: EF 45%, grade 1 DD. Mildly dilated left atrium. Mild to moderate concentric LVH. Speckled appearance to myocardium consistent with infiltrative disorders such as amyloid.
Cardiac monitoring 03/20 - 03/26/2023: Sinus rhythm, range 63-108 bpm, average 78 bpm. PACs less than 1% burden.
Left heart cath May 2022: 80 to 90% stenosis in large first septal shoes salesperson branch status post PCI.
RHC May 2022: Mild to moderate PAP 58/20 mmHg. Normal PCWP and CO/CI
05/20/2022 equivocal PYP scan for cardiac amyloid. Light chain ratio was normal. No monoclonal spike.
06/19/2022 status post endomyocardial biopsy which was negative for cardiac amyloid
Plan:
Very difficult examination. He reports his dry weight is 140 pounds and is 136 pounds on 11/18.
Of note creatinine improved to 2.7 with diuresis. He is also on room air. Consider change to oral Lasix in a.m. Check echocardiogram.
Continue hydralazine, Coreg, Farxiga.
Of note he was admitted on Entresto despite renal insufficiency. Might consider resuming in the next 24 hours.
Continue antibiotics for pneumonia
PREADMIT DATA
59 YO male with PMH significant for CAD s/p WILMAR of large first septal shoes salesperson branch 05/2022, waxing and waning cardiomyopathy over the years, most recent echocardiogram 10/2023 at with EF 45 to 50%, chronic kidney disease baseline creatinine
3.0, hypertension, hyperlipidemia, hypothyroidism, recurrent pleural effusions, orthostatic hypotension, diabetes, obstructive sleep apnea who utilizes oxygen at night.
Patient presents to today with shortness of breath with exertion over past 2 to 3 months as well as orthopnea and PND. Saw PCP yesterday and had labs indicating heart failure and advised he come to ED.
ED evaluation notable for proBNP greater than 27,000, troponin 0.026, chest x-ray with mild left lower lobe pneumonia, BUN/creatinine 44/2.9. EKG normal sinus rhythm , lateral T wave inversions, LVH.
Patient reports he has been off all heart failure medications except for torsemide for the past 2 to 3 months.
Progress Note - Tie Man
Subjective
Date of Service: November 18, 2024
He still has some shortness of breath.
Objective
Labs:
11/18/24 05:25
11/18/24 05:25
Labs
Hgb 9.4 g/dL (13.0-18.0) L 11/18/24 05:25
Hct 28.1 % (39.0-52.0) L 11/18/24 05:25
Plt Count 139 10^3/uL (130-400) 11/18/24 05:25
Sodium 137 mmol/L (135-145) 11/18/24 05:25
Potassium 4.2 mmol/L (3.5-5.1) 11/18/24 05:25
BUN 46 mg/dl (9-20) H 11/18/24 05:25
Creatinine 2.7 mg/dL (0.7-1.3) H 11/18/24 05:25
Glucose 186 mg/dl (70-99) H 11/18/24 05:25
Troponins
11/17/24
11:09
Troponin I 0.026
Vital Signs and I&O:
Vital Signs
Temp Pulse Resp BP Pulse Ox
98.3 F 69 16 168/90 95
11/18/24 11:00 11/18/24 11:00 11/18/24 11:00 11/18/24 11:00 11/18/24 11:00
Vital Signs
Temp Pulse Resp BP Pulse Ox
98.3 F 69 16 168/90 95
11/18/24 11:00 11/18/24 11:00 11/18/24 11:00 11/18/24 11:00 11/18/24 11:00
Intake & Output
11/16/24 11/17/24 11/18/24 11/19/24
06:59 06:59 06:59 06:59
Intake Total 540 / 540
Output Total 800 / 800
Balance -260 / -260
Physical Exam
Physical Exam
General: Well developed, well nourished in NAD.
Neck: Supple, no JVD, HJR, carotids +2 B/L, no bruits bilaterally.
Heart: Non displaced PMI, RRR, no murmurs, No S3, S4, no rubs.
Lungs: Scattered rhonchi at the bases
Extremities: No clubbing, cyanosis or edema bilaterally.
Neuro: Grossly nonfocal, awake, alert and oriented x3.
[2024-11-18] MEDS: STERILE WATER FOR INJECTION 10 ML IV (14:01)
[2024-11-18] MEDS: ROCEPHIN 1000 MG IV (14:02)
--- NOTE | 2024-11-18 15:24 | W.PN.HOSP.TC ---
Today's Communication/Plan
-
see plan
Assessment / Plan
Assessment / Plan
PLAN:
# Acute on chronic HFrEF exacerbation secondary to uncontrolled hypertension
-Cardiac BNP greater than 27,000 from 3500
-EKG shows normal sinus rhythm, LVH with repolarization abnormality
-Check I's and O's, daily weight
-Lasix IV per cards -likely transition to oral diuretics soon
-Cardiology consulted
# Uncontrolled hypertension due to medication noncompliance
-Technically hypertensive emergency but hypertension likely chronically elevated for several months
-Single IV hydralazine dose, Resume p.o. hydralazine once confirmed
-continue coreg
# Left lower lobe pneumonia with associated small left parapneumonic effusion
-Chest x-ray shows mild left lower lobe pneumonia, small left parapneumonic effusion
-COVID and influenza negative
-Ceftriaxone/doxycycline
CAD status post stents
-continue ASA/statin
Possible JAMAR on CKD 4 versus progressive CKD 4
-Creatinine of 2.9 from 2.3 previously
-Monitor with diuresis
-Hold entresto if still on it
Type 2 diabetes
-Continue Lantus 22 units when confirmed
-Insulin sliding scale
Hypothyroidism
-continue levothyroxine
Anemia of chronic disease
-Stable
Vitamin D deficiency
Hyperlipidemia
History of pulmonary nodules
Full code
DVT prophylaxis�heparin
Cardiac/diabetic diet
Anticipated Discharge: 24 - 48 hours
Subjective/Interval History
-
Date of Service: November 18, 2024
pt states breathing better
no cp
Objective Data
-
Labs:
Laboratory Results
11/18/24
05:25
WBC 4.1 L
Hgb 9.4 L
Hct 28.1 L
Plt Count 139
Sodium 137
Potassium 4.2
Chloride 103
Carbon Dioxide 30
BUN 46 H
Creatinine 2.7 H
Glucose 186 H
Calcium 8.2 L
Total Bilirubin 0.6
AST 28
ALT 11
Alkaline Phosphatase 98
Vital Signs:
Vital Signs
Temp Pulse Resp BP Pulse Ox
98.3 F 69 16 168/90 95
11/18/24 11:00 11/18/24 11:00 11/18/24 11:00 11/18/24 11:00 11/18/24 11:00
I&O
11/17/24 11/18/24 11/19/24
06:59 06:59 06:59
Intake Total 540 / 540
Output Total 800 / 800
Balance -260 / -260
Review of Systems
-
History Source: Patient
All other systems: Reviewed and negative
Physical Exam
-
General: Well Developed and No Apparent Distress
HEENT: Normocephalic, Atraumatic and Moist Mucous Membranes
Respiratory: Clear to Auscultation
Cardiac: Regular Rhythm and S1/S2; Negative Murmur, Rub or Gallop
GI: Soft, Nontender, Nondistended and Normal Bowel Sounds; Negative Organomegaly
Rectal: Deferred by Provider
Musculoskeletal: No Clubbing, No Cyanosis and No Edema
Skin: Negative Rash
Neuro: Nonfocal/Grossly Intact
Data Reviewed
-
Diagnostic Radiology: Report Reviewed by me
Labs: Labs Reviewed by me
[2024-11-18 15:27] VITALS: BP 154/81
[2024-11-18 17:07] LABS: Glucose - Point of Care 221 mg/dl (70-99)
[2024-11-18 19:13] VITALS: BP 170/83
[2024-11-18 21:13] LABS: Glucose - Point of Care 220 mg/dl (70-99)
[2024-11-18] MEDS: LIPITOR 40 MG PO (21:27)
[2024-11-18] MEDS: TYLENOL 650 MG PO (22:07)
[2024-11-18 23:11] VITALS: BP 174/93
[2024-11-19] MEDS: VIBRAMYCIN 260 MG IV (02:02)
[2024-11-19 03:15] VITALS: BP 144/69
[2024-11-19] MEDS: SYNTHROID 112 MCG PO (05:07)
[2024-11-19 06:00] VITALS: BMI 21.1
[2024-11-19 07:20] VITALS: BP 178/96
[2024-11-19 07:21] LABS: % Basophils 0.2 % (0-2); % Eosinophils 3.9 % (0-6); % Immature Granulocytes 0.2 % (0-0.5); % Lymphocytes 17.6 % (20.5-51.1); % Monocytes 10.3 % (1.7-9.3); % Neutrophils 67.8 % (42.2-75.2); Absolute Eosinophils 0.2 10^3/uL (0-0.7); Absolute Lymphocytes 0.7 10^3/uL (1.2-3.4); Absolute Monocytes 0.4 10^3/uL (0.1-0.6); Absolute Neutrophils 2.8 10^3/uL (1.4-6.5); Hematocrit 27.6 % (39.0-52.0); Hemoglobin 9.3 g/dL (13.0-18.0); Mean Corp Hgb Conc. 33.7 g/dL (33.0-37.0); Mean Corpuscular Hgb 32.7 pg (27.0-31.0); Mean Corpuscular Volume 97.2 fL (80.0-94.0); Mean Platelet Volume 10.1 fL (7.4-10.4); Nucleated Red Blood Cells % 0 % (-); Platelet Count 135 10^3/uL (130-400); Red Blood Cell Count 2.84 10^6/uL (4.70-6.10); Red Cell Dist. Width 13.2 % (11.5-14.5); White Blood Cell Count 4.1 10^3/uL (4.8-10.8)
[2024-11-19 07:27] LABS: Glucose - Point of Care 123 mg/dl (70-99)
[2024-11-19] MEDS: NOVOLOG FLEXPEN-LOW RESISTANCE SC (07:39)
[2024-11-19 08:06] LABS: ALT (SGPT) 12 U/L (0-50); AST (SGOT) 27 U/L (17-59); Albumin 3.2 g/dl (3.5-5.0); Alkaline Phosphatase 97 U/L (38-126); Blood Urea Nitrogen 49 mg/dl (9-20); Calcium 8.6 mg/dl (8.4-10.2); Carbon Dioxide 32 mmol/L (22-30); Chloride 100 mmol/L (98-107); Estimated Creatinine Clearance 23 ml/min; Glucose 109 mg/dl (70-99); Sodium 137 mmol/L (135-145); Total Bilirubin 0.5 mg/dl (0.2-1.3); Total Protein 5.4 g/dl (6.3-8.2); eGFR 23.34
--- NOTE | 2024-11-19 08:14 | W.PN.CARDCBS ---
Today's Communication / Plan
-
He reports his dry weight is 137-140 pounds and is 134 on 11/19 and 136 pounds on 11/18.
Creatinine improved to 2.7 with diuresis now back up to 3.
-Will hold Lasix IV 11/19 and monitor his wt and cr
Likely change back to oral diuretics next 24 hrs
If cr continues to worsen, consider renal evaluation
-Creatinine 2.3 when last in 10/2023, then 3.0 02/2024 on outpatient bottom sprayer labs
Echo with EF low normal to mildly reduced, outpt cardiac follow up
-Previously had speckling on echocardiogram and underwent amyloid workup including equivocal PYP scan and endometrial biopsy 05/2022 which was negative for cardiac amyloid.
Increase Hydralazine to 50 mg BID for better bp control.
Cont Coreg and Farxiga.
Would continue to hold Entresto with worsening renal function.
Continue supportive care and antibiotics for pneumonia as per primary service
Cont ASA and statin for CAD.
Impression / Plan
-
.
PCP:Dr. Florez
Outpatient bottom sprayer: Júnior Mayo [facility] cardiology
Impression:
Acute on chronic heart failure, mildly reduced to low normal EF
Coronary artery disease
s/p WILMAR of large first septal cage loader branch 05/2022
Ischemic cardiomyopathy, recovered on Echo 02/2023
Myocardial biopsy 06/05/2022 cardiomyocytes with occasional block shaped nuclei, [place] red special stain is negative
Right tib-fib fracture 10/2023 after mechanical fall
Chronic kidney disease
Recurrent pleural effusions follows with Dr. Arenas thoracic surgery
Hypertension
Hyperlipidemia
Hypothyroidism
Type 2 diabetes
Chronic anemia
Obstructive sleep apnea, uses 3 L of oxygen at night
History of Pleural effusion
history of pneumonia
Sinus bradycardia on high dose Coreg (heart rates in 40s while on Coreg 25 mg twice daily)
Right tib-fib fracture 10/2023
Orthostatic hypotension
Echo 11/02/2023: EF 45 to 50%, mild concentric LVH, global hypokinesis, stage I diastolic dysfunction, no significant valvular disease, trivial pericardial effusion
Echo 03/27/2023: EF 65%, mild concentric LVH, stage I DD. No significant valvular disease
Echo 09/25/2022: EF 45%, grade 1 DD. Mildly dilated left atrium. Mild to moderate concentric LVH. Speckled appearance to myocardium consistent with infiltrative disorders such as amyloid.
Cardiac monitoring 03/20 - 03/26/2023: Sinus rhythm, range 63-108 bpm, average 78 bpm. PACs less than 1% burden.
Left heart cath May 2022: 80 to 90% stenosis in large first septal cage loader branch status post PCI.
RHC May 2022: Mild to moderate PAP 58/20 mmHg. Normal PCWP and CO/CI
05/20/2022 equivocal PYP scan for cardiac amyloid. Light chain ratio was normal. No monoclonal spike.
06/19/2022 status post endomyocardial biopsy which was negative for cardiac amyloid
Plan:
He reports his dry weight is 137-140 pounds and is 134 on 11/19 and 136 pounds on 11/18.
Creatinine improved to 2.7 with diuresis now back up to 3.
-Will hold Lasix IV 11/19 and monitor his wt and cr
Likely change back to oral diuretics next 24 hrs
If cr continues to worsen, consider renal evaluation
-Creatinine 2.3 when last in 10/2023, then 3.0 02/2024 on outpatient bottom sprayer labs
Echo with EF low normal to mildly reduced, outpt cardiac follow up
-Previously had speckling on echocardiogram and underwent amyloid workup including equivocal PYP scan and endometrial biopsy 05/2022 which was negative for cardiac amyloid.
Increase Hydralazine to 50 mg BID for better bp control.
Cont Coreg and Farxiga.
Would continue to hold Entresto with worsening renal function.
Continue supportive care and antibiotics for pneumonia as per primary service
Cont ASA and statin for CAD.
Discussed with nursing
PREADMIT DATA:59 YO male with PMH significant for CAD s/p WILMAR of large first septal cage loader branch 05/2022, waxing and waning cardiomyopathy over the years, most recent echocardiogram 10/2023 at with EF 45 to 50%, chronic kidney disease baseline
creatinine 3.0, hypertension, hyperlipidemia, hypothyroidism, recurrent pleural effusions, orthostatic hypotension, diabetes, obstructive sleep apnea who utilizes oxygen at night.
Patient presents to today with shortness of breath with exertion over past 2 to 3 months as well as orthopnea and PND. Saw PCP yesterday and had labs indicating heart failure and advised he come to ED.
ED evaluation notable for proBNP greater than 27,000, troponin 0.026, chest x-ray with mild left lower lobe pneumonia, BUN/creatinine 44/2.9. EKG normal sinus rhythm , lateral T wave inversions, LVH.
Patient reports he has been off all heart failure medications except for torsemide for the past 2 to 3 months.
Progress Note - Brake Machine Operator
Subjective
Date of Service: November 19, 2024
Pt seen and examined. Breathing better. No cp or dyspnea.
Objective
Labs:
11/19/24 06:16
11/19/24 06:16
Labs
Hgb 9.3 g/dL (13.0-18.0) L 11/19/24 06:16
Hct 27.6 % (39.0-52.0) L 11/19/24 06:16
Plt Count 135 10^3/uL (130-400) 11/19/24 06:16
Sodium 137 mmol/L (135-145) 11/19/24 06:16
Potassium 4.0 mmol/L (3.5-5.1) 11/19/24 06:16
BUN 49 mg/dl (9-20) H 11/19/24 06:16
Creatinine 3.0 mg/dL (0.7-1.3) H 11/19/24 06:16
Glucose 109 mg/dl (70-99) H 11/19/24 06:16
Troponins
11/17/24
11:09
Troponin I 0.026
Vital Signs and I&O:
Vital Signs
Temp Pulse Resp BP Pulse Ox
98.0 F 62 18 144/69 94
11/19/24 03:15 11/19/24 03:15 11/19/24 03:15 11/19/24 03:15 11/19/24 03:15
Vital Signs
Temp Pulse Resp BP Pulse Ox
98.0 F 62 18 144/69 94
11/19/24 03:15 11/19/24 03:15 11/19/24 03:15 11/19/24 03:15 11/19/24 03:15
Intake & Output
11/17/24 11/18/24 11/19/24 11/20/24
06:59 06:59 06:59 06:59
Intake Total 540 / 540 420 / 420
Output Total 800 / 800
Balance -260 / -260 420 / 420
Physical Exam
Physical Exam
General: No acute distress, AAOX3
Neck: Negative JVD
Heart: Regular, Negative S3 positive S1/S2, Negative S4, No murmur
Lungs: CTA b/l, negative wheezes/rales/rhonchi
Abd: Positive BS, NT/ND, neg rebound/rigidity/guarding
Ext: Negative cyanosis/clubbing/edema
Neuro: nonfocal
[2024-11-19] MEDS: HEPARIN 5000 UNITS SC ×2 (08:20→21:05)
[2024-11-19] MEDS: ASPIR LOW (ENTERIC COATED) 81 MG PO (08:20)
[2024-11-19] MEDS: FARXIGA 10 MG PO (08:20)
[2024-11-19] MEDS: COREG 12.5 MG PO ×2 (08:20→21:05)
[2024-11-19] MEDS: APRESOLINE 25 MG PO ×2 (08:20→08:52)
[2024-11-19] MEDS: LANTUS 0.23 UNITS SC (08:21)
[2024-11-19] MEDS: LASIX IV (08:27)
--- NOTE | 2024-11-19 10:36 | W.PN.HOSP.TC ---
Today's Communication/Plan
-
Hold Lasix
Stop antibiotics
Labs in the morning
Assessment / Plan
Assessment / Plan
Gen-AAOx3, NAD
HEENT-NC, AT, anicteric, clear oral mm
Neck-supple
CV-reg, no M, +S1/S2
Lungs-clear B/L
Abd-soft, NT, ND
Ext-no edema
Musculoskeletal-no cyanosis, clubbing
Skin-warm and dry
Neuro-grossly non-focal
Psych-calm, cooperative
Acute on chronic HFrEF exacerbation secondary to uncontrolled hypertension
-Cardiac BNP greater than 27,000 from 3500
-EKG shows normal sinus rhythm, LVH with repolarization abnormality
Weight is down. Appears euvolemic. Lasix now on hold for JAMAR.
Essential hypertension -uncontrolled.
-Technically hypertensive emergency but hypertension likely chronically elevated for several months
Hydralazine dose increased.
Clinically doubt pneumonia. Stop antibiotics and observe. No signs or symptoms of sepsis. He has had a dry chronic cough for at least a month. No change with current antibiotics.
CAD status post stents
-continue ASA/statin
JAMAR on CKD 4 -creatinine up to 3.0 today, BUN 49. Diuretics now on hold. Recheck labs tomorrow.
-Monitor with diuresis
-Hold entresto if still on it
DM2 with hyperglycemia -glucose 109 this morning. Hemoglobin A1c 7.0%.
At home he is on glargine 23 units daily, Humalog sliding scale, Farxiga 10 mg daily. Meds resumed in the hospital.
Hypothyroidism
-continue levothyroxine
Chronic anemia due to CKD -hemoglobin stable.
Vitamin D deficiency
Hyperlipidemia -atorvastatin.
History of pulmonary nodules
Full code
Anticipated Discharge: Within 24 hours
Subjective/Interval History
-
Date of Service: November 19, 2024
Patient seen and examined. No complaints currently other than a dry chronic cough. Denies shortness of breath.
Objective Data
-
Labs:
Laboratory Results
11/19/24
06:16
WBC 4.1 L
Hgb 9.3 L
Hct 27.6 L
Plt Count 135
Sodium 137
Potassium 4.0
Chloride 100
Carbon Dioxide 32 H
BUN 49 H
Creatinine 3.0 H
Glucose 109 H
Calcium 8.6
Total Bilirubin 0.5
AST 27
ALT 12
Alkaline Phosphatase 97
Vital Signs:
Vital Signs
Temp Pulse Resp BP Pulse Ox
98.5 F 67 18 178/96 94
11/19/24 07:20 11/19/24 07:20 11/19/24 07:20 11/19/24 08:20 11/19/24 03:15
I&O
11/18/24 11/19/24 11/20/24
06:59 06:59 06:59
Intake Total 540 / 540 420 / 420
Output Total 800 / 800
Balance -260 / -260 420 / 420
Review of Systems
-
History Source: Patient
All other systems: Reviewed and negative
[2024-11-19 11:07] VITALS: BP 153/75
[2024-11-19 11:49] LABS: Glucose - Point of Care 272 mg/dl (70-99)
[2024-11-19] MEDS: NOVOLOG FLEXPEN-LOW RESISTANCE 3 UNITS SC (11:52)
[2024-11-19 15:35] VITALS: BP 178/89
[2024-11-19 16:37] LABS: Glucose - Point of Care 235 mg/dl (70-99)
[2024-11-19] MEDS: NOVOLOG FLEXPEN-LOW RESISTANCE 2 UNITS SC (16:46)
[2024-11-19 19:15] VITALS: BP 183/94
[2024-11-19] MEDS: APRESOLINE 50 MG PO (21:04)
[2024-11-19] MEDS: LIPITOR 40 MG PO (21:05)
[2024-11-19 21:18] LABS: Glucose - Point of Care 135 mg/dl (70-99)
[2024-11-19 23:10] VITALS: BP 141/71
[2024-11-20 03:30] VITALS: BP 155/72
[2024-11-20] MEDS: SYNTHROID 112 MCG PO (05:22)
[2024-11-20 06:00] VITALS: BMI 21.4
[2024-11-20 06:40] LABS: Blood Urea Nitrogen 57 mg/dl (9-20); Calcium 8.9 mg/dl (8.4-10.2); Carbon Dioxide 30 mmol/L (22-30); Chloride 100 mmol/L (98-107); Estimated Creatinine Clearance 25 ml/min; Glucose < 30 mg/dl (70-99); Sodium 138 mmol/L (135-145); eGFR 25.36
[2024-11-20 06:57] LABS: Glucose - Point of Care 101 mg/dl (70-99)
[2024-11-20 07:32] VITALS: BP 194/69
[2024-11-20] MEDS: FARXIGA 10 MG PO (07:41)
[2024-11-20] MEDS: APRESOLINE 50 MG PO ×2 (07:41→20:33)
[2024-11-20] MEDS: NOVOLOG FLEXPEN-LOW RESISTANCE SC ×2 (07:42→17:32)
[2024-11-20] MEDS: ASPIR LOW (ENTERIC COATED) 81 MG PO (07:42)
[2024-11-20] MEDS: COREG 12.5 MG PO ×2 (07:42→20:33)
[2024-11-20] MEDS: HEPARIN 5000 UNITS SC ×2 (07:42→20:31)
--- NOTE | 2024-11-20 07:46 | PTCARENOTE ---
Dr. Sanchez and Dr. Woodruff made aware pt.'s b/p 192/95 hr 71 this AM. This nurse gave scheduled PO b/p medications as ordered per Dr. Sanchez. Will continue to monitor and report on pt.
--- NOTE | 2024-11-20 09:16 | W.PN.HOSP.TC ---
Today's Communication/Plan
-
Decrease Lantus dose
Await cardiology input
Discharge
Assessment / Plan
Assessment / Plan
Gen-AAOx3, NAD
HEENT-NC, AT, anicteric, clear oral mm
Neck-supple
CV-reg, no M, +S1/S2
Lungs-clear B/L
Abd-soft, NT, ND
Ext-no edema
Musculoskeletal-no cyanosis, clubbing
Skin-warm and dry
Neuro-grossly non-focal
Psych-calm, cooperative
Acute on chronic HFrEF exacerbation secondary to uncontrolled hypertension
-Cardiac BNP greater than 27,000 from 3500
-EKG shows normal sinus rhythm, LVH with repolarization abnormality
Weight is down. Appears euvolemic. Lasix now on hold for JAMAR.
Essential hypertension -uncontrolled.
-Technically hypertensive emergency but hypertension likely chronically elevated for several months
Hydralazine dose increased.
Clinically doubt pneumonia. Antibiotics discontinued. No signs or symptoms of sepsis. He has had a dry chronic cough for at least a month.
CAD status post stents
-continue ASA/statin
JAMAR on CKD 4 -creatinine improved, 2.8 today. Can resume diuretics if okay with cardiology. Entresto on hold, resume when okay.
DM2 with hyperglycemia/hypoglycemia -glucose <30 this morning on BMP. Treated and repeat glucose 101. Hemoglobin A1c 7.0%.
At home he is on glargine 23 units daily, Humalog sliding scale, Farxiga 10 mg daily. Meds resumed in the hospital.
On further questioning patient admits to lowering his dose of glargine at home to 15 units daily over the past month due to hypoglycemic episodes. Will refer to PCP and endocrinology after discharge.
Hypothyroidism
-continue levothyroxine
Chronic anemia due to CKD -hemoglobin stable.
Vitamin D deficiency
Hyperlipidemia -atorvastatin.
History of pulmonary nodules -patient unaware of diagnosis. Chest x-ray demonstrates 1.3 cm nodule at the right costophrenic angle. Discussed with pulmonary (Dr. Butcher), information provided to pulmonary service and they will follow-up in the
office. Discussed with patient regarding outpatient follow-up with pulmonary.
Full code
Dispo -anticipate discharge if okay with cardiology. Outpatient follow-up.
Anticipated Discharge: Today
Subjective/Interval History
-
Date of Service: November 20, 2024
Patient seen and examined. No complaints.
Objective Data
-
Labs:
Laboratory Results
11/20/24
04:23
Sodium 138
Potassium 4.0
Chloride 100
Carbon Dioxide 30
BUN 57 H
Creatinine 2.8 H
Glucose < 30 L*
Calcium 8.9
Vital Signs:
Vital Signs
Temp Pulse Resp BP Pulse Ox
97.6 F 71 16 192/95 97
11/20/24 07:32 11/20/24 07:41 11/20/24 07:32 11/20/24 07:41 11/20/24 07:32
I&O
11/19/24 11/20/24 11/21/24
06:59 06:59 06:59
Intake Total 420 / 420 1040 / 1040
Balance 420 / 420 1040 / 1040
Review of Systems
-
History Source: Patient
All other systems: Reviewed and negative
[2024-11-20 09:37] LABS: Glucose - Point of Care 301 mg/dl (70-99)
[2024-11-20 09:39] VITALS: BP 145/70
[2024-11-20] MEDS: LANTUS 0.1 UNITS SC (10:15)
[2024-11-20 11:31] VITALS: BP 122/61
[2024-11-20 12:42] LABS: Glucose - Point of Care 282 mg/dl (70-99)
[2024-11-20] MEDS: NOVOLOG FLEXPEN-LOW RESISTANCE 3 UNITS SC (12:45)
[2024-11-20] MEDS: NOVOLOG FLEXPEN 7 UNITS SC (12:46)
--- NOTE | 2024-11-20 13:29 | W.PN.CARDCBS ---
Today's Communication / Plan
-
Creatinine improved and now stable at 2.8. Would discharge home on torsemide 30 mg daily.
Continue Coreg 12.5 p.o. twice daily, Farxiga 10 mg daily, hydralazine 50 mg p.o. twice daily.
He prefers to follow-up with [facility] we will arrange follow-up
Impression / Plan
-
.
PCP:Dr. Florez
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
Impression:
Acute on chronic heart failure, mildly reduced to low normal EF
Coronary artery disease
s/p WILMAR of large first septal compound filler branch 05/2022
Ischemic cardiomyopathy, recovered on Echo 02/2023
Myocardial biopsy 06/05/2022 cardiomyocytes with occasional block shaped nuclei, [place] red special stain is negative
Right tib-fib fracture 10/2023 after mechanical fall
Chronic kidney disease
Recurrent pleural effusions follows with Dr. Arenas thoracic surgery
Hypertension
Hyperlipidemia
Hypothyroidism
Type 2 diabetes
Chronic anemia
Obstructive sleep apnea, uses 3 L of oxygen at night
History of Pleural effusion
history of pneumonia
Sinus bradycardia on high dose Coreg (heart rates in 40s while on Coreg 25 mg twice daily)
Right tib-fib fracture 10/2023
Orthostatic hypotension
Echo 11/02/2023: EF 45 to 50%, mild concentric LVH, global hypokinesis, stage I diastolic dysfunction, no significant valvular disease, trivial pericardial effusion
Echo 03/27/2023: EF 65%, mild concentric LVH, stage I DD. No significant valvular disease
Echo 09/25/2022: EF 45%, grade 1 DD. Mildly dilated left atrium. Mild to moderate concentric LVH. Speckled appearance to myocardium consistent with infiltrative disorders such as amyloid.
Cardiac monitoring 03/20 - 03/26/2023: Sinus rhythm, range 63-108 bpm, average 78 bpm. PACs less than 1% burden.
Left heart cath May 2022: 80 to 90% stenosis in large first septal compound filler branch status post PCI.
RHC May 2022: Mild to moderate PAP 58/20 mmHg. Normal PCWP and CO/CI
05/20/2022 equivocal PYP scan for cardiac amyloid. Light chain ratio was normal. No monoclonal spike.
06/19/2022 status post endomyocardial biopsy which was negative for cardiac amyloid
Plan:
He reports his dry weight is 137-140 pounds and is 136
Creatinine stable at 2.8. Would discharge on Torsemide 30mg daily
-Creatinine 2.3 when last in 10/2023, then 3.0 02/2024 on outpatient cigar tobacco processing supervisor labs
Echo with EF low normal to mildly reduced, outpt cardiac follow up
-Previously had speckling on echocardiogram and underwent amyloid workup including equivocal PYP scan and endometrial biopsy 05/2022 which was negative for cardiac amyloid.
Cont Hydralazine to 50 mg BID for better bp control.
Cont Coreg and Farxiga.
Would continue to hold Entresto with worsening renal function.
Continue supportive care and antibiotics for pneumonia as per primary service
Cont ASA and statin for CAD.
OK for D/C
PREADMIT DATA:59 YO male with PMH significant for CAD s/p WILMAR of large first septal compound filler branch 05/2022, waxing and waning cardiomyopathy over the years, most recent echocardiogram 10/2023 at with EF 45 to 50%, chronic kidney disease baseline
creatinine 3.0, hypertension, hyperlipidemia, hypothyroidism, recurrent pleural effusions, orthostatic hypotension, diabetes, obstructive sleep apnea who utilizes oxygen at night.
Patient presents to today with shortness of breath with exertion over past 2 to 3 months as well as orthopnea and PND. Saw PCP yesterday and had labs indicating heart failure and advised he come to ED.
ED evaluation notable for proBNP greater than 27,000, troponin 0.026, chest x-ray with mild left lower lobe pneumonia, BUN/creatinine 44/2.9. EKG normal sinus rhythm , lateral T wave inversions, LVH.
Patient reports he has been off all heart failure medications except for torsemide for the past 2 to 3 months.
Progress Note - Tug Master
Subjective
Date of Service: November 20, 2024
Breathing is overall improved. Denies chest pains.
Objective
Labs:
11/19/24 06:16
11/20/24 04:23
Labs
Hgb 9.3 g/dL (13.0-18.0) L 11/19/24 06:16
Hct 27.6 % (39.0-52.0) L 11/19/24 06:16
Plt Count 135 10^3/uL (130-400) 11/19/24 06:16
Sodium 138 mmol/L (135-145) 11/20/24 04:23
Potassium 4.0 mmol/L (3.5-5.1) 11/20/24 04:23
BUN 57 mg/dl (9-20) H 11/20/24 04:23
Creatinine 2.8 mg/dL (0.7-1.3) H 11/20/24 04:23
Glucose < 30 mg/dl (70-99) L* 11/20/24 04:23
Vital Signs and I&O:
Vital Signs
Temp Pulse Resp BP Pulse Ox
98.9 F 64 16 122/61 92
11/20/24 11:31 11/20/24 11:31 11/20/24 11:31 11/20/24 11:31 11/20/24 11:31
Vital Signs
Temp Pulse Resp BP Pulse Ox
98.9 F 64 16 122/61 92
11/20/24 11:31 11/20/24 11:31 11/20/24 11:31 11/20/24 11:31 11/20/24 11:31
Intake & Output
11/18/24 11/19/24 11/20/24 11/21/24
06:59 06:59 06:59 06:59
Intake Total 540 / 540 420 / 420 1040 / 1040
Output Total 800 / 800
Balance -260 / -260 420 / 420 1040 / 1040
Physical Exam
Physical Exam
GEN: No distress, awake, Ox3
HEENT: supple, anicteric, mmm
LUNGS: CTA, no wheezes/rales
CV: Reg, S1/S2, 1/6 syst LSB, no gallop
ABD: soft, BS+, NT/ND
EXT: No edema
NEURO: Gross non-focal
SKIN: No rash
--- NOTE | 2024-11-20 13:40 | W.DS.TRANS ---
DC Summary - Tnt Powder Worker
-
Discharge Instructions:
Discharge Diagnosis/Procedures CHF exacerbation, uncontrolled hypertension
Diet 2 Gram Sodium,Diabetic, Carb Controlled,Low Fat,
Low Cholesterol
Activity As tolerated
Driving Restrictions As prior to admission
Bathing Restrictions None
Blood Work BMP in 1 week with your primary care doctor
Instructions: *PCP/Other Clock Assembler Heart Failure Instructions
Stand-Alone Forms:
Changes to Home Medications: Yes
Discharge Medications:
DC Medications w/original date entered in [employer]
atorvastatin 40 mg tablet 40 mg PO HS High Cholesterol 02/05/22
levothyroxine 112 mcg tablet (Synthroid) 112 mcg PO DAILY Thyroid 11/01/23
omega-3 fatty acids 1,000 mg PO DAILY Supplement 04/15/24
aspirin 81 mg tablet,delayed release 81 mg PO DAILY Blood Clot Prevention/Tx 11/17/24
carvedilol 12.5 mg tablet (Coreg) 12.5 mg PO BID Heart Failure 11/17/24
dapagliflozin propanediol 10 mg tablet (Farxiga) 10 mg PO DAILY Diabetes 11/17/24
insulin lispro 100 unit/mL subcutaneous pen (Humalog KwikPen (U-100) Insulin) 7 sliding scale dose SC AC Diabetes 11/17/24
hydralazine 50 mg tablet 50 mg PO BID #60 tabs 11/20/24
insulin glargine 100 unit/mL (3 mL) subcutaneous pen 15 unit (0.15 mL) SC DAILY Diabetes #0 mL 11/20/24
torsemide 20 mg tablet 30 mg (1.5 x 20 mg) PO DAILY #60 tabs 11/20/24
Home Medication Changes
Torsemide dose increased to 30 mg daily.
Pending Results: No
--- NOTE | 2024-11-20 13:46 | CM ---
Chart reviewed and plan is for patient to return to home today, patient is on room air.
Plan; Home no needs
[2024-11-20 15:13] VITALS: BP 155/82
[2024-11-20 17:30] LABS: Glucose - Point of Care 48 mg/dl (70-99)
[2024-11-20] MEDS: NOVOLOG FLEXPEN SC (17:31)
[2024-11-20 17:47] LABS: Glucose - Point of Care 50 mg/dl (70-99)
[2024-11-20 18:02] LABS: Glucose - Point of Care 58 mg/dl (70-99)
[2024-11-20] MEDS: DEXTROSE 50% SYRINGE 12.5 GRAMS IV (18:16)
[2024-11-20 18:24] LABS: Glucose - Point of Care 200 mg/dl (70-99)
--- NOTE | 2024-11-20 18:29 | PTCARENOTE ---
Dr. Woodruff canceled discharge until pt. sugars are stable. Pt. made aware of plan. Will pass on to oncoming shift nurse.
[2024-11-20 20:43] LABS: Glucose - Point of Care 266 mg/dl (70-99)
[2024-11-20] MEDS: LIPITOR 40 MG PO (21:46)
[2024-11-20 22:36] LABS: Glucose - Point of Care 327 mg/dl (70-99)
[2024-11-20 22:40] VITALS: BP 130/59
[2024-11-21 03:06] LABS: Glucose - Point of Care 261 mg/dl (70-99)
[2024-11-21] MEDS: SYNTHROID 112 MCG PO (05:39)
[2024-11-21 06:00] VITALS: BMI 21.3
[2024-11-21 07:11] LABS: Blood Urea Nitrogen 61 mg/dl (9-20); Calcium 8.4 mg/dl (8.4-10.2); Carbon Dioxide 31 mmol/L (22-30); Chloride 100 mmol/L (98-107); Estimated Creatinine Clearance 24 ml/min; Glucose 209 mg/dl (70-99); Potassium 4.6 mmol/L (3.5-5.1); Sodium 134 mmol/L (135-145); eGFR 24.31
[2024-11-21 07:26] VITALS: BP 159/78
[2024-11-21 07:59] LABS: Glucose - Point of Care 184 mg/dl (70-99)
[2024-11-21] MEDS: NOVOLOG FLEXPEN 7 UNITS SC (07:59)
[2024-11-21] MEDS: NOVOLOG FLEXPEN-LOW RESISTANCE 1 UNITS SC (07:59)
[2024-11-21] MEDS: COREG 12.5 MG PO (08:00)
[2024-11-21] MEDS: ASPIR LOW (ENTERIC COATED) 81 MG PO (08:01)
[2024-11-21] MEDS: FARXIGA 10 MG PO (08:01)
[2024-11-21] MEDS: HEPARIN 5000 UNITS SC (08:01)
[2024-11-21] MEDS: APRESOLINE 50 MG PO (08:01)
--- NOTE | 2024-11-21 09:38 | CM ---
MD entered order for discharge.
Spoke with pt . He said he was ready for discharge.
He said his son Jn will drive him home.
Offered VN he declind need.
PLAN Home no needs
[2024-11-21] MEDS: LANTUS 0.1 UNITS SC (09:39)
[2024-11-21 11:00] VITALS: BP 150/80
--- NOTE | 2024-11-21 12:26 | W.PN.HOSP.TC ---
Addendum entered and electronically signed by Horace Calvo MD 11/22/24 15:25:
[id number]
Original Note:
Today's Communication/Plan
-
Diuretics, Coreg, Farxiga, hydralazine
Continue Lantus at home dose, titrate as needed outpatient
Follow-up PCP, pulmonary (for nodule), cardiology outpatient
Assessment / Plan
Assessment / Plan
Gen-AAOx3, NAD
HEENT-NC, AT, anicteric, clear oral mm
Neck-supple
CV-reg, no M, +S1/S2
Lungs-clear B/L
Abd-soft, NT, ND
Ext-no edema
Musculoskeletal-no cyanosis, clubbing
Skin-warm and dry
Neuro-grossly non-focal
Psych-calm, cooperative
Acute on chronic HFrEF exacerbation secondary to uncontrolled hypertension
-Cardiac BNP greater than 27,000 from 3500
-EKG shows normal sinus rhythm, LVH with repolarization abnormality
Weight is down. Appears euvolemic. Resume back on torsemide 30 mg daily; follow-up [facility] outpatient
� Continue Coreg, Farxiga, hydralazine
Essential hypertension -uncontrolled.
-Technically hypertensive emergency but hypertension likely chronically elevated for several months
Hydralazine dose increased.
Clinically doubt pneumonia. Antibiotics discontinued. No signs or symptoms of sepsis. He has had a dry chronic cough for at least a month.
CAD status post stents
-continue ASA/statin
JAMAR on CKD 4 -creatinine improved, 2.8 today. Resume diuretics; Entresto on hold, resume when okay outpatient
Hyponatremia
� Mild
� Follow-up outpatient
DM2 with hyperglycemia/hypoglycemia -glucose <30 this morning on [facility]. Treated and repeat glucose 101. Hemoglobin A1c 7.0%.
Was taking 15 mg subcu at home, can continue; follow-up outpatient
Hypothyroidism
-continue levothyroxine
Chronic anemia due to CKD -hemoglobin stable.
Vitamin D deficiency
Hyperlipidemia -atorvastatin.
History of pulmonary nodules -patient unaware of diagnosis. Chest x-ray demonstrates 1.3 cm nodule at the right costophrenic angle. Discussed with pulmonary (Dr. Butcher), information provided to pulmonary service and they will follow-up in the
office. Discussed with patient regarding outpatient follow-up with pulmonary.
Full code
More than 30 minutes spent in discharge including
Final examination of the patient
Summarizing hospital stay
Instructions for continuing care to all relevant caregivers
Preparation of discharge records, prescriptions, and referral forms
Total time spent (36 in minutes):
Anticipated Discharge: Today
Subjective/Interval History
-
Date of Service: November 21, 2024
No acute events, glucose remained stable
Objective Data
-
Labs:
Laboratory Results
11/21/24
05:19
Sodium 134 L
Potassium 4.6
Chloride 100
Carbon Dioxide 31 H
BUN 61 H
Creatinine 2.9 H
Glucose 209 H
Calcium 8.4
Vital Signs:
Vital Signs
Temp Pulse Resp BP Pulse Ox
98 F 82 16 150/80 95
11/21/24 11:00 11/21/24 11:00 11/21/24 11:00 11/21/24 11:00 11/21/24 07:56
I&O
11/20/24 11/21/24 11/22/24
06:59 06:59 06:59
Intake Total 1040 / 1040 1440 / 1440 420 / 420
Balance 1040 / 1040 1440 / 1440 420 / 420
Review of Systems
-
History Source: Patient
All other systems: Not reviewed unless documented
Physical Exam
-
General: Well Developed and No Apparent Distress
HEENT: Normocephalic, Atraumatic and Moist Mucous Membranes
Respiratory: Clear to Auscultation
Cardiac: Regular Rhythm and S1/S2; Negative Murmur, Rub or Gallop
GI: Soft, Nontender, Nondistended and Normal Bowel Sounds; Negative Organomegaly
Rectal: Deferred by Provider
Musculoskeletal: No Clubbing, No Cyanosis and No Edema
Skin: Negative Rash
Neuro: Nonfocal/Grossly Intact
Data Reviewed
-
Diagnostic Radiology: Report Reviewed by me
Labs: Labs Reviewed by me
--- NOTE | 2024-11-21 12:30 | W.DS.TRANS ---
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
-
Discharge Instructions:
Discharge Diagnosis/Procedures CHF exacerbation, uncontrolled hypertension
Diet 2 Gram Sodium,Diabetic, Carb Controlled,Low Fat,
Low Cholesterol
Activity As tolerated
Driving Restrictions As prior to admission
Bathing Restrictions None
Blood Work BMP in 1 week with your primary care doctor
Instructions: *PCP/Other Senior Vice President Heart Failure Instructions
Stand-Alone Forms:
Changes to Home Medications: Yes
Discharge Medications:
DC Medications w/original date entered in [employer]
atorvastatin 40 mg tablet 40 mg PO HS High Cholesterol 02/05/22
levothyroxine 112 mcg tablet (Synthroid) 112 mcg PO DAILY Thyroid 11/01/23
omega-3 fatty acids 1,000 mg PO DAILY Supplement 04/15/24
aspirin 81 mg tablet,delayed release 81 mg PO DAILY Blood Clot Prevention/Tx 11/17/24
carvedilol 12.5 mg tablet (Coreg) 12.5 mg PO BID Heart Failure 11/17/24
dapagliflozin propanediol 10 mg tablet (Farxiga) 10 mg PO DAILY Diabetes 11/17/24
insulin lispro 100 unit/mL subcutaneous pen (Humalog KwikPen (U-100) Insulin) 7 sliding scale dose SC AC Diabetes 11/17/24
hydralazine 50 mg tablet 50 mg PO BID #60 tabs 11/20/24
insulin glargine 100 unit/mL (3 mL) subcutaneous pen 15 unit (0.15 mL) SC DAILY Diabetes #0 mL 11/20/24
torsemide 20 mg tablet 30 mg (1.5 x 20 mg) PO DAILY #60 tabs 11/20/24
Home Medication Changes
torsemide 20 mg tablet 30 mg (1.5 x 20 mg) PO DAILY #60 tabs 11/20/24
Pending Results: No
--- NOTE | 2024-11-22 10:16 | W.HF.CON ---
Heart Failure
- LV Function
Left ventricular function study result: LV Ejection fraction 41-49%
Ejection Fraction Percentage: 45-50
- ARNI
Patient already on ARNI: No
Heart Failure ARNI Not Indicated: LV Ejection Fraction >/= 40%
- ACEI/ARB
Patient already on ACEI/ARB: No
Heart Failure ACEI/ARB Not Indicated: LV Ejection Fraction > 40%
- Beta Otrri
Patient already on Evidence Based Beta Torri: Yes
- Mineralocorticord Receptor Antagonist
Patient already on MRA: No
Heart Failure MRA Not Indicated: LV Ejection Fraction > 40%
- SGLT-2 Inhibitor
Patient already on SGLT-2 Inhibitor: Yes
- NYHA CHF Classification
NYHA CHF Classification Level: Class III - Symptoms w/ min exertion, interferes w/ nml daily activity
- ACC/AHA Stage
ACC/AHA Stage: Stage C: Symptomatic Heart Failure
== END 2024-11-21 12:41 | disposition home or self-care (01) | DRG 291 ==
LOC: 4 EAST ACU 13:07
PROVIDERS: Hospitalist; Internal Medicine; Physician Assistant; ADMITTING PHYSICIAN Hospitalist; ATTENDING PHYSICIAN Internal Medicine; EMERGENCY PHYSICIAN Emergency Medicine; OTHER PHYSICIAN Internal Medicine Cardiovascular Disease
DX: I13.0 Hypertensive heart and chronic kidney disease with heart failure and stage 1 through stage 4 chronic kidney disease, or unspecified chronic kidney disease (principal); I50.23 Acute on chronic systolic (congestive) heart failure; E87.1 Hypo-osmolality and hyponatremia; N18.4 Chronic kidney disease, stage 4 (severe); N17.9 Acute kidney failure, unspecified; I50.84 End stage heart failure; E11.22 Type 2 diabetes mellitus with diabetic chronic kidney disease; E11.65 Type 2 diabetes mellitus with hyperglycemia; Z79.4 Long term (current) use of insulin; E11.649 Type 2 diabetes mellitus with hypoglycemia without coma; I25.10 Atherosclerotic heart disease of native coronary artery without angina pectoris; E03.9 Hypothyroidism, unspecified; E55.9 Vitamin D deficiency, unspecified; D63.1 Anemia in chronic kidney disease; E78.00 Pure hypercholesterolemia, unspecified; G47.33 Obstructive sleep apnea (adult) (pediatric); Z87.891 Personal history of nicotine dependence; Z79.82 Long term (current) use of aspirin; Z95.5 Presence of coronary angioplasty implant and graft; Z91.148 Patient's other noncompliance with medication regimen for other reason; Z87.01 Personal history of pneumonia (recurrent); I95.1 Orthostatic hypotension; Z79.899 Other long term (current) drug therapy; Z11.52 Encounter for screening for COVID-19; Z79.890 Hormone replacement therapy
CPT/HCPCS: 71046; 80048; 80053; 82962; 83036; 83880; 84484; 85025; 87502; 87811; 90686; 93005; 93306; 96374; 99285; G0008

== ENCOUNTER → 2025-02-01 09:52 | Outpatient (REF) | payer OTHER, SELFPAY ==
[2025-02-01 11:30] LABS: Glycohemoglobin (HgbA1c) 7.6 % (4.0-5.6)
[2025-02-01 12:08] LABS: ALT (SGPT) 28 U/L (0-50); AST (SGOT) 35 U/L (17-59); Alkaline Phosphatase 101 U/L (38-126); Blood Urea Nitrogen 55 mg/dl (9-20); Calcium 8.7 mg/dl (8.4-10.2); Carbon Dioxide 26 mmol/L (22-30); Chloride 109 mmol/L (98-107); Glucose 207 mg/dl (70-99); HDL Cholesterol 59 mg/dl; LDL Cholesterol, Calculated 59 mg/dl; Potassium 4.8 mmol/L (3.5-5.1); Sodium 144 mmol/L (135-145); Total Bilirubin 0.8 mg/dl (0.2-1.3); Total Cholesterol 131 mg/dl (50-199); Total Protein 6.5 g/dl (6.3-8.2); Triglyceride 66 mg/dl (10-149); Very Low Density Lipoprotein 13 mg/dl (0-30)
[2025-02-01 12:11] LABS: TSH 6.46 uIU/ml (0.47-4.68)
[2025-02-01 12:43] LABS: Free T4 2.21 ng/dl (0.78-2.19)
[2025-02-01 14:47] LABS: Microalbumin, Random Urine > 57.0 mg/dl (0.6-1.7)
== END ==
LOC: REG 09:52
PROVIDERS: ATTENDING PHYSICIAN Nurse Practitioner Family
DX: E11.65 Type 2 diabetes mellitus with hyperglycemia (principal); Z79.4 Long term (current) use of insulin; E03.9 Hypothyroidism, unspecified
CPT/HCPCS: 36415; 80053; 80061; 82043; 82570; 83036; 84439; 84443

== ENCOUNTER → 2025-02-15 15:27 | Outpatient (REF) | payer OTHER, SELFPAY | LOC: RAD 15:27 | PROVIDERS: ATTENDING PHYSICIAN Nurse Practitioner Family | DX: E03.9 Hypothyroidism, unspecified (principal) | CPT/HCPCS: 76536 ==

== ENCOUNTER → 2025-03-10 14:55 | Outpatient (REF) | payer OTHER, SELFPAY | LOC: RCS 14:55 | PROVIDERS: ATTENDING PHYSICIAN Internal Medicine Cardiovascular Disease; FAMILY PHYSICIAN Physician Assistant Medical | DX: I50.22 Chronic systolic (congestive) heart failure (principal) | CPT/HCPCS: 93306 ==

== ENCOUNTER → 2025-05-03 17:22 | Outpatient (REF) | payer OTHER, SELFPAY ==
[2025-05-03 18:24] LABS: ALT (SGPT) 12 U/L (0-50); AST (SGOT) 21 U/L (17-59); Albumin 3.5 g/dl (3.5-5.0); Alkaline Phosphatase 101 U/L (38-126); Blood Urea Nitrogen 69 mg/dl (9-20); Calcium 8.4 mg/dl (8.4-10.2); Carbon Dioxide 30 mmol/L (22-30); Chloride 105 mmol/L (98-107); Glucose 197 mg/dl (70-99); Iron 65 ug/dl (49-181); Potassium 4.1 mmol/L (3.5-5.1); Sodium 140 mmol/L (135-145); Total Protein 6.0 g/dl (6.3-8.2); eGFR 18.64
[2025-05-03 18:33] LABS: Total Iron Binding Capacity 273 ug/dl (261-462)
[2025-05-03 18:38] LABS: Hematocrit 22.4 % (39.0-52.0); Hemoglobin 7.5 g/dL (13.0-18.0); Mean Corp Hgb Conc. 33.5 g/dL (33.0-37.0); Mean Corpuscular Volume 95.3 fL (80.0-94.0); Normal RBC Morphology No; Nucleated Red Blood Cells % 0 % (-); Platelet Count 148 10^3/uL (130-400); Red Cell Dist. Width 13.7 % (11.5-14.5); Reticulocyte Count 1.3 % (0.4-2.8)
[2025-05-03 18:39] LABS: Hypochromasia 1+
[2025-05-03 18:40] LABS: Schistocytes 3+
[2025-05-03 18:54] LABS: TSH 5.16 uIU/ml (0.47-4.68)
[2025-05-04 09:07] LABS: Glycohemoglobin (HgbA1c) 6.2 % (4.0-5.6)
== END ==
LOC: REG 17:22
PROVIDERS: ATTENDING PHYSICIAN Nurse Practitioner Family; REFERRING PHYSICIAN Internal Medicine Nephrology
DX: N18.4 Chronic kidney disease, stage 4 (severe) (principal); D63.1 Anemia in chronic kidney disease; E10.65 Type 1 diabetes mellitus with hyperglycemia; Z79.4 Long term (current) use of insulin; E03.9 Hypothyroidism, unspecified
CPT/HCPCS: 36415; 80053; 82570; 83036; 83540; 83550; 83970; 84100; 84156; 84439; 84443; 85025; 85045

== ENCOUNTER 2025-05-29 05:45 | Inpatient (IN) | payer OTHER, SELFPAY ==
[2025-05-29] VITALS (47 sets, daily range): BP systolic 97–194; BP diastolic 53–101; PULSE 48; O2SAT 95; BMI 22.5; BMI 23.2
[2025-05-29 03:20] LABS: Glucose - Point of Care > 600 mg/dl (70-99)
[2025-05-29 03:36] LABS: Hematocrit 26.0 % (39.0-52.0); Hemoglobin 8.1 g/dL (13.0-18.0); Mean Corp Hgb Conc. 31.2 g/dL (33.0-37.0); Mean Corpuscular Volume 98.9 fL (80.0-94.0); Nucleated Red Blood Cells % 0 % (-); Platelet Count 116 10^3/uL (130-400); Red Cell Dist. Width 14.8 % (11.5-14.5)
[2025-05-29] MEDS: NSS 1000 IV ×2 (03:38→03:46)
--- NOTE | 2025-05-29 03:53 | EDRN ---
"Initially unable to obtain oral temp, pt's pants removed and perineal care provided. Rectal temp obtained. Pt was covered in multiple heated blankets and asked if he can go to sleep. Pt attempted to doze while iv inserted and bloods drawn. Dr Brianna (~) just sat pt up and gave him water to sip. Pt expressed concern about a 0730 biopsy he has scheduled this morning. Dr Reed informed pt the priority at this time is to get his blood sugar under control. TT to RT to obtain ABG."
[2025-05-29 04:03] LABS: Blood Urea Nitrogen 78 mg/dl (9-20); Calcium 8.5 mg/dl (8.4-10.2); Carbon Dioxide 20 mmol/L (22-30); Chloride 98 mmol/L (98-107); Estimated Creatinine Clearance 18 ml/min; Sodium 132 mmol/L (135-145); eGFR 15.06
[2025-05-29 04:15] LABS: B.E. -6.7 mmol/L; HCO3 19.7 mmol/L (21-28); O2 Saturation % 88.9 % (94-98); PCO2 43 mmHg (35-48)
[2025-05-29 04:29] LABS: Glucose 839 mg/dl (70-99)
[2025-05-29 04:36] LABS: PO2 56 mmHg (83-108)
--- NOTE | 2025-05-29 04:41 | EDRN ---
While pt lying on L side sleeping, pulse ox dropped to 79% - placed pt on 4 lpm O2 which woke pt - informed pt glucose = 839 before IVF. Pulse ox up to 99% Pt back to sleep.
--- NOTE | 2025-05-29 04:45 | EDRN ---
Dr Reed informed stat glucose was drawn and sent immediately after IVF bolus, that result and potassium level are not back. Dr Chan said to give IV insulin 7 units now but do not start insulin infusion
--- NOTE | 2025-05-29 04:46 | ED.GENMED ---
History of Present Illness
General
Chief Complaint: Blood Sugar Problem
Source: patient and ambulance crew
Exam Limitations: none
Time Seen by Provider: 05/29/25 03:27
Nursing documentation reviewed up to this point in time: agreed with
History of Present Illness
History of Present Illness:
Note:
CHIEF COMPLAINT(S)
Elevated blood sugar and swollen feet.
HISTORY OF PRESENT ILLNESS
The patient is a 60-year-old male presenting with elevated blood glucose levels and swollen feet, which have been present for a couple of days. The patients continuous glucose monitor had readings above the devices threshold of 600 mg/dL, indicating
significant hyperglycemia. The patient reported blurred vision, which is consistent with hyperglycemia. The patient has not taken insulin for the past two days because he could not access it, even though insulin is available at home. The patients
son lives nearby but was not asked for assistance. The patient reports that he usually relies on the continuous glucose monitor, which has not functioned correctly for the past day or two due to issues with the component in the device. The patient
denies chest pain, shortness of breath, headache, or recent illness. The patient has a history of congestive heart failure. He does not report any episodes of diabetic ketoacidosis requiring hospitalization in the past.
CHRONIC MEDICAL CONDITIONS SIGNIFICANTLY AFFECTING CARE
Congestive heart failure
Diabetes mellitus
SOCIAL DETERMINANTS AFFECTING HEALTH
The patient lives alone with no immediate assistance for managing his insulin therapy and healthcare needs. The patient has a son living nearby but did not request his help to access the insulin.
REVIEW OF SYSTEMS
- Vision: Reports blurred vision associated with high blood sugar
- Cardiovascular: Reports swelling in feet, no chest pain
- Respiratory: Denies shortness of breath
- Neurological: Denies headache
- General: Denies recent illness
PHYSICAL EXAM
General: Alert, no acute distress.
Skin: Warm, dry. Feet are swollen.
Head: Normocephalic, atraumatic.
Neck: Supple, trachea midline.
Eye Ears, nose, mouth and throat: Oral mucosa moist.
Cardiovascular: Normal peripheral perfusion, No edema.
Respiratory: Respirations are non-labored.
Gastrointestinal : Abdomen nondistended
Back: Normal range of motion, Normal alignment.
Musculoskeletal: Normal ROM, normal strength.
Neurological: Alert and oriented to person, place, time, and situation, No focal neurological deficit observed.
Psychiatric: Cooperative, appropriate mood & affect.
PROBLEM LIST
Acute:
- Hyperglycemia
- Swelling in feet
Chronic:
- Congestive heart failure
- Diabetes mellitus
PLAN
The patient will be admitted to the hospital for further management of hyperglycemia and evaluation for potential diabetic ketoacidosis. Treatment will include administration of intravenous fluids and continuous monitoring. The patients insulin
regimen will be reviewed and reinforced. Upon discharge, the patient may need to consider assistance from a home-health service for insulin management and to ensure that he can access his medications.
DIFFERENTIAL DIAGNOSIS
The Differential Diagnosis includes, in no particular order and is not limited to:
- Diabetic ketoacidosis
- Hyperosmolar hyperglycemic state
- Acute heart failure exacerbation
- Fluid overload
- Infection
- Medication non-compliance
- Renal impairment
- Electrolyte imbalances
- Pneumonia
- Urinary tract infection
Disposition:
SUMMARY OF ENCOUNTER
A 60-year-old male presented to the emergency department via EMS with complaints of blurry vision and weakness. The patient, who has insulin-dependent diabetes, had not taken his insulin for several days due to swollen feet, which prevented him from
walking to the refrigerator to retrieve it. The patient lives alone but has a son who checks up on him occasionally. He arrived at the emergency department covered in feces. His continuous glucose monitor has been showing high readings for the past
few days. The patient was found to have an anion gap, indicating diabetic ketoacidosis. He received intravenous fluids in the emergency department and will receive insulin as part of his treatment.
DISPOSITION
Admit
ASSESSMENT
The patient is experiencing diabetic ketoacidosis, compounded by hyperglycemia and poor insulin management. The anion gap suggests metabolic acidosis typically seen in diabetic ketoacidosis cases.
EMERGENCY TREATMENTS ADMINISTERED
The patient received intravenous fluids.
PLAN
The patient will be admitted to the hospital for further management of diabetic ketoacidosis. Insulin therapy will be initiated along with continuous monitoring.
MEDICAL DECISION MAKING
-Complexity of Data Reviewed: Chronic conditions affecting care [Congestive heart failure, Diabetes mellitus] Differential Diagnosis includes: Diabetic ketoacidosis, Hyperosmolar hyperglycemic state, Acute heart failure exacerbation, Fluid overload,
Infection, Medication non-compliance, Renal impairment, Electrolyte imbalances, Pneumonia, Urinary tract infection.
-Data:
Category 1: An anion gap was identified, suggesting the presence of metabolic acidosis.
-Risk: Prescription medication was prescribed. The patients lack of immediate assistance due to living alone and not asking for help from his son, who lives nearby, significantly affects his care.
DIAGNOSIS
- Diabetic ketoacidosis (E13.10)
- Hyperglycemia (R73.9)
Past History
Past History
ED Past Medical History: HTN, Hypercholesterolemia and IDDM
ED Past Surgical History: None
Social History
Tobacco: Former smoker
Alcohol: Occasional
Personal:
Living: with family
Employment: Other
Phy Exam
Physical Exam
Physical Exam:
.
Course
Orders/Labs/Results
Orders:
Orders
05/29/25 03:27
B-Hydroxybutyrate Urgent
Basic Metabolic Panel Urgent
Comment: NO K
Complete Blood Count/With Diff Urgent
Creatine Phosphokinase Urgent
Comment: ADD ON
05/29/25 03:28
IV Insert/Care/Rem.- Treatment PRN
Urinalysis Urgent
0.9% Sodium Chloride 1000 ml [Nss] 1,000 ml IV BOLUS
0.9% Sodium Chloride 1000 ml [Nss] 1,000 ml IV BOLUS
05/29/25 03:30
Add On- LAB Urgent
Tests Added?: cpk
05/29/25 03:48
BNP [NT-proBNP] Urgent
05/29/25 04:08
Arterial Blood Gas Urgent
%Oxygen/Room Air: ra
05/29/25 04:24
Glucose Stat
[id number]-Wlmqpfm Urgent
Potassium Urgent
TSH Reflex To Free T4 Stat
Comment: ADD ON
05/29/25 04:42
Insulin Human Regular [Novolin R] 7 units IV NOW STA
Reg Insulin 100 Units/100 ml [Novolin R Insulin Infusion] 100 units in 100 ml IV NOW
05/29/25 04:58
Reg Insulin 100 Units/100 ml [Novolin R Insulin Infusion] 100 units in 100 ml IV NOW
05/29/25 05:05
Add On- LAB Stat
Tests Added?: tsh + free T4
05/29/25 05:25
Admit/Transfer Patient As Directed
Co-Sign Provider:
Level of Care: Inpatient admission
Assign to:: ICU
Physician / Group: [email or web address]
Diagnosis: DKA
Reason for Hospitalization: DKA
Expected length of stay greater than two midnights?: Yes
ELOS- Estimated Length of Stay in days: 2
I certify the patient meets the requirements for IP care: Yes
05/29/25 05:26
PRN Pain Medication Management As Directed
May give lesser potent ordered pain med per pt: Yes
preference::
Protocol:: Medication orders for pain may be administered in a
manner that supports deferring to patient preference
when the pt is:
- Requesting an ordered lesser potent pain medication.
Least to most potent pain medications are defined
as: acetaminophen < NSAID < tramadol < opioids
(morphine, oxycodone, hydromorphone).
- Requesting a lesser dose of the same medication IF
ORDERED.
- Requesting a less intrusive route of administration
if both routes are prescribed by the provider (PO <
IV).
05/29/25 05:27
Code Status As Directed
Resuscitation Status: Full Code
05/29/25 05:38
ECG [Electrocardiogram (*1)] Stat
Reason for Study: Heart Failure, Left
CR Chest - 2 Views Stat
Comment:
Reason For Exam: congestive heart failure
05/29/25 Breakfast
NPO
Allow oral meds: Yes
Allow clear liquids: Sips of Clears
05/29/25 06:52
Echo 2D MMode Color/Doppler Routine
Reason for Study: heart failure
CARDIOLOGY CONSULT Routine
Consulting Provider: Jorge A Snyder
Was physician already notified: No
Reason for consult: CHF exacerbation, DKA
Consult Notification Routine
Specialty to Notify: Cardiology
Consult Notification Routine
Specialty to Notify: Running Instructor
Consult Notification Routine
Specialty to Notify: Nephrology
Diabetes Management by Nurse Practitioner Routine
Consulting Provider: Lois Dawson
Was provider already notified?: No
Reason for Consult: Insulin Management
Running Instructor Consult Routine
Consulting Provider: Philipp Hartman
Was physician already notified: No
Reason for consult: DKA, CHF exacerbation
NEPHROLOGY CONSULT Routine
Consulting Provider: Emeterio Santos V.
Was physician already notified: No
Reason for consult: JAMAR on CKD, DKA, CHF exacerbation
KCl 20 Meq/0.45 Sodchl 1000 ml [0.45% NACL with KCL 20 MEQ] 20 meq in 1,000 ml IV 75 mls/hr
Reg Insulin 100 Units/100 ml [Novolin R Insulin Infusion] 100 units in 100 ml IV PER PROTOCOL
Initial dose in units/hr, then titrate:: 6
Activity As Directed
Activity Level: With Assistance
Bedside Glucose Monitoring As Directed
Frequency: Q1H
Intake/ Output As Directed
Frequency: Per unit guidelines
Notify MD As Directed
Notify physician if: Nurse to contact provider when glucose reaches 250 to obtain orders for D5 0.45 NaCl
Vital Signs As Directed
Frequency: Per unit guidelines
Weight As Directed
Frequency: Daily
Type of Scale: Standing Scale
Comment: Daily morning weight. If unable to stand, use balanced bed scale.
O2 Therapy [RESP] Routine
Nasal Cannula Liter Flow: 2 LPM
Titrate/Wean O2 to maintain O2 sat greater than (%): 93
Pulse Ox/cont/shift [RESP] Routine
Quantity: 1
Special Instructions: Daily pulse oximetry at rest. If greater than 92% at rest also obtain pulse oximetry
while ambulating as tolerated.
Pulse Ox/spot Check [RESP] Routine
Quantity: 1
Special Instructions: pulse oximetry on admission then every shift if on oxygen.
call if oxygen saturation less than __ %
Kidney & Bladder US [US Renal With Bladder] Routine
Comment:
Reason For Exam: JAMAR
DX Deep Vein Thrombosis Video Routine
05/29/25 08:00
Basic Metabolic Panel Q4
Aspirin Low Dose EC [Aspir Low (Enteric Coated)] 81 mg PO DAILY
Carvedilol [Coreg] 12.5 mg PO BID
Heparin 5,000 units SC Q8
HydrALAZINE [Apresoline] 50 mg PO BID
Levothyroxine [Synthroid] 112 mcg PO DAILY
05/29/25 12:00
Basic Metabolic Panel Q4
05/29/25 16:00
Basic Metabolic Panel Q4
05/29/25 20:00
Basic Metabolic Panel Q4
05/29/25 22:00
Atorvastatin [Lipitor] 40 mg PO HS
05/30/25 00:00
Basic Metabolic Panel Q4
05/30/25 04:00
Basic Metabolic Panel Q4
05/30/25 06:00
Complete Blood Count/No Diff IN AM
Glycohemoglobin (HgbA1c) IN AM
Abnormal Lab Results
05/29/25 05/29/25 05/29/25
03:18 03:27 04:08
RBC 2.63 L 10^6/uL
(4.70-6.10)
Hgb 8.1 L g/dL
(13.0-18.0)
Hct 26.0 L %
(39.0-52.0)
MCV 98.9 H fL
(80.0-94.0)
MCHC 31.2 L g/dL
(33.0-37.0)
RDW 14.8 H %
(11.5-14.5)
Plt Count 116 L 10^3/uL
(130-400)
MPV 11.3 H fL
(7.4-10.4)
Absolute Lymphs (auto) 0.4 L 10^3/uL
(1.2-3.4)
Neutrophils % 82.4 H %
(42.2-75.2)
Lymphocytes % 7.5 L %
(20.5-51.1)
pH 7.27 L
(7.35-7.45)
pO2 56 L* mmHg
(83-108)
HCO3 19.7 L mmol/L
(21-28)
ABG O2 Sat (Measured) 88.9 L %
(94-98)
Sodium 132 L mmol/L
(135-145)
Potassium
Carbon Dioxide 20 L mmol/L
(22-30)
BUN 78 H mg/dl
(9-20)
Creatinine 4.3 H* mg/dL
(0.7-1.3)
Glucose 839 H* mg/dl
(70-99)
Direct Bilirubin
Creatine Kinase 292 H U/L
(55-170)
Total Protein
Albumin
B-Hydroxybutyrate 4.23 H mmol/L
(0.02-0.27)
POC Glucose > 600 H* mg/dl
(70-99)
05/29/25
04:24
RBC
Hgb
Hct
MCV
MCHC
RDW
Plt Count
MPV
Absolute Lymphs (auto)
Neutrophils %
Lymphocytes %
pH
pO2
HCO3
ABG O2 Sat (Measured)
Sodium
Potassium 5.2 H mmol/L
(3.5-5.1)
Carbon Dioxide
BUN
Creatinine
Glucose 784 H* mg/dl
(70-99)
Direct Bilirubin 0.6 H mg/dl
(0.0-0.4)
Creatine Kinase
Total Protein 5.1 L g/dl
(6.3-8.2)
Albumin 2.8 L g/dl
(3.5-5.0)
B-Hydroxybutyrate
POC Glucose
05/29/25 03:27
05/29/25 04:24
Vital Signs
Initial and Last Documented VS:
Initial Vital Signs
Pulse Resp BP Pulse Ox
52 15 167/66 93
05/29/25 03:21 05/29/25 03:21 05/29/25 03:21 05/29/25 03:21
Last Documented Vital Signs
Temp Pulse Resp BP Pulse Ox
97.3 F 56 15 172/70 98
05/29/25 06:30 05/29/25 06:29 05/29/25 06:29 05/29/25 06:29 05/29/25 06:29
*Pulse Oximetry
SaO2: 99
Nasal Cannula flow liters per minute: 4
Oxygen Mode of Delivery: Room air
Patient hypoxic: no
*Critical Care Note
Total Time (30-74mins, 75-104mins- exclusive of procedures): 38 (Critical care statement: A total of 38 minutes of critical care time was provided for this patient. This time is separate from time utilized to perform the aforementioned documented
procedures. Aggregate critical care time includes only time during which I was engaged in work directl)
Update Note
Update Note:
Patient has an anion gap of 14
ED Attending Note
-
Portions of this chart may have been created with voice recognition software.� Occasional wrong word or��sound alike� substitutions may have occurred due to the inherent limitations of voice recognition software.
Discharge Plan
Departure
Patient Disposition: Admit
Date of Disposition: 05/29/25
Time of Disposition: 04:51
Admit to: ICU
Presentation/result/management discussed w/ accepting MD/DO: Hospitalist
Discharge Problem:
Diabetic ketoacidosis, Noncompliance with medications, Unable to care for self, CHF exacerbation
Interventions
Interventions:
*Risk Screen - Suicide Last Done: 05/29/25 03:12
*General Assessment Last Done: 05/29/25 03:12
*Neglect/Abuse Screening Last Done: 05/29/25 03:12
*ED- Fall Risk Assessment Last Done: 05/29/25 03:32
ED- Neurological Assessment Last Done: 05/29/25 03:25
[2025-05-29] MEDS: NOVOLIN R 7 UNITS IV (04:49)
[2025-05-29 04:52] LABS: ALT (SGPT) 11 U/L (0-50); AST (SGOT) 19 U/L (17-59); Albumin 2.8 g/dl (3.5-5.0); Alkaline Phosphatase 97 U/L (38-126); Potassium 5.2 mmol/L (3.5-5.1); Total Protein 5.1 g/dl (6.3-8.2)
--- NOTE | 2025-05-29 04:54 | EDRN ---
Pt's skin is now warm and pt says he feels warmer. Attempted to obtain repeat oral and axillary temp without success.
--- NOTE | 2025-05-29 04:58 | EDRN ---
Called pharmacy for insulin drip
--- NOTE | 2025-05-29 05:00 | HPS.HSE ---
Family Physician
-
Family Physician: Galen Arteaga
Chief Complaint
-
Hyperglycemia
History of Present Illness
This is a 60-year-old medical history significant for insulin-dependent diabetes, hypothyroid, CAD status post stenting, ischemic cardiomyopathy with CHF EF 35% as well as stage II diastolic dysfunction, JESSENIA, CKD stage III with baseline creatinine
ranging anywhere from 2-3 who was brought o the emergency department by ambulance due to difficulty getting up after sliding to the floor.
Reports 2 days of elevated blood glucose readings, decided not to take his insulin despite the elevations because he had trouble walking to the fridge due to swelling in his feet. He notes feet are increasing swelling and tonight while attempting
to return to his bed from his couch he slid to the floor and called an ambulance as was unable to crawl to his bed. Unclear how long he was on the floor for.
Emergency Department he was hypothermic with temp of 34.4, blood pressure of 140/60 with a pulse rate of 50 and was satting 99% on room air. Hemoglobin was 8.1 which is similar to prior platelet 116 also similar to prior no leukocytosis.
Electrolytes show a sodium of 132 potassium 5.2 bicarb of 20 with a BUN and creatinine of 17 and 4.3 respectively. He has a serum glucose of 839, elevated beta hydroxybutyrate to 4.3. pH was 7.27. Anion gap 14, suggestive of a mixed high anion
gap and non-gap acidosis.
Medical History
Past Medical History
Past Medical History: Reports Other ( CAD status post stent, CHF, CKD 4, diabetes)
Past Surgical History: Reports None
Social History
Tobacco: Non-smoker
Alcohol: None
Drug: None
Family History
Family History: Not pertinent
Allergies / Home Medications
Allergies reflects when Allergies were last updated in [facility].
Home Medications with original date entered in [facility]
Allergy/Medication List:
Allergies
Allergy/AdvReac Type Severity Reaction Status Date / Time
No Known Allergies Allergy Verified 04/19/24 07:03
Home Medications
atorvastatin 40 mg tablet 40 mg PO HS High Cholesterol 02/05/22
dapagliflozin propanediol 10 mg tablet (Farxiga) 10 mg PO DAILY Diabetes/Heart Failure 11/01/23
levothyroxine 112 mcg tablet (Synthroid) 112 mcg PO DAILY Thyroid 11/01/23
sacubitril 49 mg-valsartan 51 mg tablet (Entresto) 1 tab PO BID Heart Failure 11/01/23
therapeutic multivitamin 1 tab PO DAILY Supplement 11/01/23
torsemide 20 mg tablet 20 mg PO DAILY Fluid Retention/Swelling 11/01/23
acetaminophen 325 mg tablet 650 mg PO Q6HPRN PRN mild pain/ fever>100F 11/17/23
insulin aspart U-100 100 unit/mL (3 mL) subcutaneous pen 7 unit (0.07 mL) SC DAILY@0730 #0 mL 11/23/23
aspirin 81 mg capsule 81 mg PO DAILY 04/15/24
carvedilol 25 mg tablet 25 mg PO DAILY 04/15/24
hydralazine 50 mg tablet 50 mg PO BID 04/15/24
insulin glargine 100 unit/mL (3 mL) subcutaneous pen 23 unit SC DAILY 04/15/24
omega-3 fatty acids 1,000 mg PO DAILY 04/15/24
Review of Systems
-
History Source: Patient
A 12 point ROS was completed and negative except as noted: Yes
Constitutional: Reports No Symptoms
EENT: Reports No Symptoms
Respiratory: Reports No Symptoms
Cardiac: Reports No Symptoms
Abdomen/GI: Reports No Symptoms
: Reports No Symptoms
Musculoskeletal: Reports Edema
Skin: Reports No Symptoms
Neurological: Reports No Symptoms
Endocrine: Reports Other (Hyperglycemia)
Hematologic/Lymphatic: Reports No Symptoms
Psych: Reports No Symptoms
Physical Exam
Vital Signs
Vital Signs
Temp Pulse Resp BP Pulse Ox
94.4 F L 50 14 140/63 99
05/29/25 03:30 05/29/25 04:34 05/29/25 04:34 05/29/25 04:00 05/29/25 04:46
Physical Exam
General: Well Developed, Well Nourished and No Apparent Distress
HEENT: NormoCephalic, Moist mucous membranes and Atraumatic
Respiratory: Clear
Cardiac: S1/S2 and Regular Rhythm; No Murmur or Rub
GI: Soft, Non Tender, Non Distended and Normal Bowel Sounds; No Organomegaly
Rectal: Deferred by Provider
Genito-urinary: Deferred by me
Musculoskeletal: No Clubbing, No Cyanosis, Edema, Left Lower Extremity (2+ pitting pedal) and Edema, Right Lower Extremity (2+ pitting pedal)
Skin: No Rash
Neuro: AO x 3 and Nonfocal/grossly intact
Hematologic/Lymphatic: No Lymphadenopathy
Psych: Calm; No Depressed or Suicidal
Laboratory Results
-
05/29/25 03:27
05/29/25 04:24
Laboratory Results
pH 7.27 (7.35-7.45) L 05/29/25 04:08
pCO2 43 mmHg (35-48) 05/29/25 04:08
pO2 56 mmHg (83-108) L* 05/29/25 04:08
HCO3 19.7 mmol/L (21-28) L 05/29/25 04:08
Total Bilirubin 0.6 mg/dl (0.2-1.3) 05/29/25 04:24
AST 19 U/L (17-59) 05/29/25 04:24
ALT 11 U/L (0-50) 05/29/25 04:24
Alkaline Phosphatase 97 U/L (38-126) 05/29/25 04:24
Data Reviewed
-
Lab Data: Labs Reviewed by me
Impression/Plan
-
IMPRESSION:
60-year-old with congestive heart failure, CKD stage IV, hypertension, insulin-dependent diabetes and hypothyroid who presents to the emergency department with uncontrolled hyperglycemia and mild DKA secondary to not taking his insulin regimen.
Reports not taking it for at least 2 days and probably more because he does not feel like walking to his fridge. He also has not taken his torsemide for at least 2 days because he ran out 2 days ago and did not go to the pharmacy to pick it up. He
reports compliance with his other medications. Is unaware of any acute weight gain but does report increasing pedal edema over the last 2 days. Denies polyuria or polydipsia.
PLAN:
DKA -appears secondary to noncompliance with insulin regimen
-Admit to ICU
-Placed on DKA protocol with every 6 BMP
-DKA protocol adjusted of CHF by using lowest volume fluid with 1/2 NS + 20 K at 75ml/hr for now
-Will hold patient's diuretics until glucose corrected, start torsemide in a.m.
- N.p.o. for now
- Header Dock consult
JAMAR -suspect secondary to volume overload however cannot rule out urinary obstruction as patient states he has not been urinating significantly.
-Kidney bladder ultrasound
-Hold diuretics while on insulin drip
-Given patient's he is volume overloaded, will hold IV fluids
-Avoid nephrotoxin, hold Jardiance
-Nephrology consultation
CHF -peripheral edema, 7 kg weight gain since his discharge. Elevated JVD. And no shortness of breath. No chest pain. Likely noncompliant with his torsemide
-Daily weights
-Restart diuretics after control of blood glucose
-consider starting Lasix IV 60 mg every 12 and monitor renal function
-Hold Jardiance for now
-Continue carvedilol, hydralazine
-Cardiology consultation
Hypothymia -mild hypothymia
-Check TSH
- Passive blankets for now
PT consultation
DVT prophylaxis�heparin subcu
CODE STATUS�full code
[2025-05-29 05:10] LABS: Glucose 784 mg/dl (70-99)
[2025-05-29] MEDS: NOVOLIN R INSULIN INFUSION 100 IV ×2 (05:13→19:30)
[2025-05-29 06:18] LABS: Glucose - Point of Care > 600 mg/dl (70-99)
--- NOTE | 2025-05-29 06:43 | EDRN ---
Report given to Erica in ICU
[2025-05-29 07:06] LABS: Glucose 740 mg/dl (70-99)
--- NOTE | 2025-05-29 07:27 | PTCARENOTE ---
Received pt on Insulin drip @ 6.7units/hr via right wrist #20g protective catheter. He is pale appearing. Opened his eyes to verbal and tactile stimulation. He is able to answer some questions regarding his health history but cannot remember the
names of his providers as out patient. When asked why his glucose reading was so high he verbalized that he just didn't feel like getting it out of the fridge. On further questioning he denied financial reason for not taking is insulin, he denied it
was due to insurance issues, he denied having symptoms of an infections such as cold or cough, burning or difficulty urinating. He also denied any feelings of feeling down, depressed or hopeless. He was just not able to provide a good substantive
reason for not taking his insulin or getting his diuretic from the pharmacy after he ran out several days [employer]. +3 - +4 pitting lower extremity edema from his knees to his feet. Left wrist #20g protective catheter with Insulin @ 6.7units/hr. Left
FA#18g protective catheter flushed and patent. Lungs dim on the left base. pulse ox 95% w/1 liter nasal cannula. +BSx4. No void since admission. Right knee with scabbed abrasion. Right posterior forearm with old resolving yellow/ford bruise in color.
He was informed of the plan of care regarding hourly glucose monitoring with adjustment of his drip accordingly, the use of the call grover and the importance of medical compliance with his home meds and diabetes management to prevent hospitalizations
like this in the future. He verbalized his understanding. Safe environment maintained, will continue supportive care.
[2025-05-29] MEDS: SYNTHROID 112 MCG PO (07:47)
[2025-05-29] MEDS: COREG PO ×3 (07:48→17:12)
[2025-05-29] MEDS: APRESOLINE 50 MG PO ×2 (07:48→22:09)
[2025-05-29] MEDS: ASPIR LOW (ENTERIC COATED) 81 MG PO (07:48)
[2025-05-29] MEDS: HEPARIN 5000 UNITS SC ×2 (07:49→17:16)
--- NOTE | 2025-05-29 07:49 | CON.INTV ---
Addendum entered and electronically signed by Juaquin Butcher MD 05/30/25 07:45:
Update:
05/29, by end of the day, labs improved, AG closed, blood sugar improved and patient was transitioned to s.c insulin. Borderline low blood sugar noted overnight.
- Switch to Lantus 15 units nightly
- Add Aspart 4 tid-ac
- SSI in addition
- Can transfer out of ICU. [employer] service will sign off, please call as needed.
Addendum entered and electronically signed by Juaquin Butcher MD 05/29/25 14:55:
..
Original Note:
Consultation
Consultation Request
Date/Time Consultation Requested: 05/29/25; 05:00
Date/Time Consultation Performed: 05/29/25: 08:00
Medical History
-
Chief Complaint: elevated blood glucose
History of Present Illness:
Crow Barahona is a 60yo M with a PMH notable for T2DM, hypothyroid, ischemic cardiomyopathy with HFrEF (LVEF 35%, stage II diastolic dysfunction), CAD (s/p stenting) CKD IV, and JESSENIA, who presented 05/29 early am with subacute worsening of ILDA,
elevated home blood glucose readings, blurry vision, and severe weakness.
Few days prior to admission, patient ran out of his torsemide prescription and did not refill it. He began to experience swelling of his bilateral lower extremities. Due to swelling of feet, he did not get up to walk to the fridge to get his
insulin for a few days. He has a continuous glucose monitor, which noted 2 days of elevated readings (above 600, which is the device threshold). Patient states that there was an issue with a component and the continuous glucose monitor device for
the past few days. He lives at home alone. Ambulance was called after he slid to the floor from the couch and was unable to get up or crawl. Unable to endorse how long he was on.
On presentation to the ED, patient was hypothermic (94.2F), BP 140/60, HR 50, O2 sat 99% on room air. Serum glucose level was 839, with elevated beta hydroxybutyrate (4.3) and pH of 7.27. Serum anion gap was elevated to 14. Na 132, K 5.2, bicarb
20, BUN 17, Cr 4.3 (baseline Cr 2-3). Hgb & plt similar to prior baseline (8.1, 116 respectively). He reports that his dry weight is 140lb.
He received IVF in the ED and was admitted to ICU, started on DKA protocol of insulin & KCl infusions/regular labs.
This morning, patient alert and oriented, conversant. Endorses some blurriness of vision different from baseline. States that he is somewhat thirsty, denies polyuria. Denies any abdominal pain or headache. States that he was a bit nauseous but
did not throw up; denies any current nausea. His last BM was about 2 days ago. Confirms that he has been having ILDA for the last 'couple of days' and that he did not take his torsemide for a couple of days, as well as his insulin. Denies
orthopnea. Denies CP. States that he has a cough that is somewhat new; unable to endorse when it started. Denies any sick contacts or fever/chills at home. Understands the plan for his glucose and fluids under control.
Past Medical History
Past Medical History: CAD, CHF, Hypothyroidism and IDDM
Past Surgical History: None
Social History
Living: Alone
Family History
Family History: Reviewed & Not Pertinent
Allergies / Home Medications
Allergies
Allergy/AdvReac Type Severity Reaction Status Date / Time
No Known Allergies Allergy Verified 05/29/25 03:12
Home Medications
�Medication �Instructions �Recorded �Confirmed �Last Taken �Type
atorvastatin 40 mg tablet 40 mg PO HS High Cholesterol 02/05/22 05/29/25 04/18/24 21:00 History
levothyroxine 112 mcg tablet 112 mcg PO DAILY Thyroid 11/01/23 05/29/25 04/18/24 07:00 History
(Synthroid)
omega-3 fatty acids 1,000 mg PO DAILY Supplement 04/15/24 05/29/25 04/18/24 08:00 History
aspirin 81 mg tablet,delayed 81 mg PO DAILY Blood Clot 11/17/24 05/29/25 Unknown History
release Prevention/Tx
carvedilol 12.5 mg tablet (Coreg) 12.5 mg PO BID Heart Failure 11/17/24 05/29/25 Unknown History
dapagliflozin propanediol 10 mg 10 mg PO DAILY Diabetes 11/17/24 05/29/25 Unknown History
tablet (Farxiga)
insulin lispro 100 unit/mL 7 sliding scale dose SC AC Diabetes 11/17/24 05/29/25 Unknown History
subcutaneous pen (Humalog KwikPen
(U-100) Insulin)
hydralazine 50 mg tablet 50 mg PO BID #60 tabs 11/20/24 05/29/25 Unknown Rx
insulin glargine 100 unit/mL (3 15 unit (0.15 mL) SC DAILY 11/20/24 05/29/25 04/19/24 05:45 Rx
mL) subcutaneous pen Diabetes #0 mL 16 units
torsemide 20 mg tablet 30 mg (1.5 x 20 mg) PO DAILY #60 11/20/24 05/29/25 Unknown Rx
tabs
Review of Systems
-
History Source: Patient
Constitutional: Fever (Denies) and Weight Gain
Respiratory: Cough and Trouble Breathing (Denies orthopnea)
Cardiac: Chest Pain (Denies)
Abdomen/GI: Abdominal Pain (Denies) and Nausea
: Frequency (Denies)
Musculoskeletal: Edema (Bilateral LE)
Neuro: Other (Blurry vision)
Endocrine: Polyuria (Denies)
Vitals / Labs / Diagnostic Testing
Vital Signs
Temp Pulse Resp BP Pulse Ox
97.3 F 55 18 194/74 97
05/29/25 06:30 05/29/25 07:30 05/29/25 07:30 05/29/25 07:30 05/29/25 07:30
Lab Data
05/29/25 03:27
Laboratory Results
05/29/25
04:08
pH 7.27 L
pCO2 43
pO2 56 L*
HCO3 19.7 L
O2 Delivery Level
Diagnostic Testing:
Physical Exam
-
HEENT: Normocephalic and Anicteric
Cardiovascular: S1/S2, Regular Rhythm and Peripheral Edema (2+ pitting edema bilaterally to the knee, left slightly worse than right)
Respiratory: Other (Clear to auscultation bilaterally but with diminished breath sounds in left lower lobe; 1 L O2 NC)
GI: Soft, Non Distended and Non Tender
Neurology: AO x 3
Skin: Warm and Dry
General: Comfortable
Assessment
-
Crow Barahona is a 60yo M with a PMH notable for T2DM, hypothyroid, ischemic cardiomyopathy with HFrEF (LVEF 35%, stage II diastolic dysfunction), CAD (s/p stenting) CKD IV, and JESSENIA, who presented 05/29 with subacute worsening of ILDA, elevated home
blood glucose, blurry vision, and severe weakness in the s/o recent medication nonadherence, found to have serum glucose >800. [employer] consulted for mgmt, plan as below.
#Elevated blood glucose, likely HHS > DKA
Patient with blood glucose in the 800s, elevated beta hydroxybutyrate, elevated anion gap (14), pH 7.27; in the setting of reported error with continuous glucose monitor and nonadherence to home insulin for a couple of days. Pt with blurry vision
but without abdominal pain, AMS, or vomiting. UA with 1+ ketones, 4+ glucose, 3+ albumin. Pt on HHS-DKA spectrum, with presentation more c/w HHS than DKA given glucose>800, relatively mild gap elevation & acidosis, clinically well appearance s/p
<12hr insulin. However, some element of ketonemia/ketonuria. Bicarb normalized 20>24; K 5.2>4.4. Hgb A1c 05/29 is 6.2, indicating moderate home control (improved from 7.6 in January 2025).
Today: 6 U/hour insulin gtt; glucose: 839>>>740>683>612
- Continue insulin drip, decrease per protocol following serum glucose levels
- Goal decline in serum glucose no more than 90-120/hr
- Goal to transition to insulin glargine/aspart tonight
- Hold on KCl repletion; monitor K levels
- BMP every 6 hours
#Acute on chronic HFrEF exacerbation
Patient with HFrEF (LVEF 35% as of 02/2025, stage II diastolic dysfunction). Patient up ~6kg from dry weight, with 2+ pitting edema on bilateral LEs up to knees on presentation. CXR (05/29): 'Mild to moderate acute cardiogenic pulmonary edema; small
left pleural effusion.' Pro-BNP >27,000. Likely triggered by noncompliance with torsemide after running out of medication at home.
Today: 69.2 kg (dry weight 63.5 kg), fluid balance + 2066ml; satting 96% on 1L O2 NC
- Start 40mg IV lasix bid
- Continue home carvedilol 12.5 mg twice daily
- Hold carvedilol if HR less than 60
- Daily Is&Os, daily weights
- Echo pending
- Wean off O2 NC today
- Cards consulted, appreciate recs
#Bradycardia
EKG 05/29: sinus bradycardia; L ventricular hypertrophy; QTCb>480msec. Potential element of reflex bradycardia in s/o elevated BPs. TSH wnl this admission, likely not 2/2 hypothyroid.
Today: HR 54
- Holding carvedilol until HR>60
- Continue to monitor
#HTN
Likely 2/2 combination volume overload in s/o acute on chronic HFrEF, cardiorenal syndrome, IVF administration.
Today: BP 170/101, MAP 99.
- Increase home hydralazine to 50mg tid
- Add 30mg nitrate daily
- Continue to monitor
#JAMAR
#CKD IV
#Hypoalbuminemia
#Albuminuria
Likely cardiorenal/volume overload etiology given acute HFrEF exacerbation in setting of underlying CKD. Baseline creatinine 2-3. Ratliff catheter placed 05/29. UA without signs of UTI; glucose4+, albumin 3+. Albuminuria likely 2/2 diabetic nephropathy
& CHF.
Cr: 4.3>4.1
- Holding home dapagliflozin (10 mg daily)
- Pending urine Cr, urine Na
- Calculate urine albumin/cr ratio
- Continue to monitor serum Cr
- Kidney bladder ultrasound pending
- Nephrology consulted, appreciate recs
#Decreased L lower lung field breath sounds
#Cough
CXR 05/29: read as 'Large dense left lower lobe airspace consolidation.' LLL region of diminished airspace radiographically (& on exam with diminished breath sounds) most likely atelectasis 2/2 patient's weakness in s/o current illness. Patient does
endorse cough, however is afebrile with no leukocytosis (WBC 5.5); covid negative; PNA consolidation unlikely.
- Incentive spirometry
- Continue to monitor sx
#Elevated troponin
Elevated to 0.035 on 05/29. Likely 2/2 demand ischemia, type II injury.
Trop: 0.035>
- Continue to trend trop for peak
#Chronic
- CAD: Continue home atorvastatin 40 mg; holding home aspirin 81 mg daily
- Hypothyroid: Continue home levothyroxine 112 mcg daily
#Global
- DVT PPx: Subq heparin
- Code: Full
- Diet: Start diabetic diet today
- Dispo: Patient lives at home alone; PT/OT consulted to eval functional status
Data Reviewed
-
EKG: Report reviewed by me
Radiology: Image personally visualized and interpreted and Report reviewed by me
Labs: Labs reviewed by me
Critical Care Time (in minutes): 45
Total Time Spent with Patient (in minutes): 15
[2025-05-29] MEDS: 0.45% NACL with KCL 20 MEQ 1000 IV (07:50)
--- NOTE | 2025-05-29 08:10 | W.PN.HOSP.TC ---
Today's Communication/Plan
-
Ratliff catheter
Echocardiogram
Renal/bladder ultrasound
Titrate insulin drip
Assessment / Plan
Assessment / Plan
Gen-AAOx3, NAD
HEENT-NC, AT, anicteric, clear oral mm
Neck-supple
CV-reg, no M, +S1/S2
Lungs-clear B/L
Abd-soft, NT, ND
Ext-bilateral lower extremity edema
Musculoskeletal-no cyanosis, clubbing
Skin-warm and dry
Neuro-grossly non-focal
Psych-calm, cooperative
DM2 with hyperglycemia -primarily HHNK although he does have a mild anion gap of 14, but significant glucose elevation points towards HHNK. Beta hydroxybutyrate 4.23.
Insulin drip 6 units/h, titrate for goal glucoses.
Gentle IV fluids given presentation with volume overload, acute heart failure exacerbation.
Patient admits to noncompliance with his home diabetes regimen. He cannot tell me why he decided not to take his meds. He did have access to all his meds, with the exception of torsemide which he ran out of.
He denies feeling depressed, denies suicidal ideation. Denies history of mental illness. He understands that DKA and hyperglycemia can potentially cause .
Recent hemoglobin A1c 6.2%, 05/03/2025. This may not be reliable due to his chronic anemia.
JAMAR on CKD 4 -likely due to intravascular volume depletion due to osmotic diuresis due to significant hyperglycemia. Creatinine of 4.3 on presentation, baseline creatinine usually 2.8. Nephrology consulted. Renal/bladder ultrasound.
Acute on chronic heart failure with reduced EF -weight is up significantly compared to October 2024. In October his weight was 61 kg, currently 69 kg. Not compliant with torsemide.
BNP greater than 27,000.
Admission chest x-ray with mild to moderate pulmonary edema. Left lower lobe consolidation likely due to atelectasis, clinically doubt pneumonia. Small left pleural effusion.
Place Ratliff catheter and then resume diuretics today if okay with nephrology.
Echocardiogram pending. Cardiology consulted.
Essential hypertension - currently uncontrolled, suspect related to noncompliance and volume overload.
Hypothyroidism -TSH 4.0, continue levothyroxine.
Hyperlipidemia -atorvastatin.
Chronic anemia -likely related to CKD. Hemoglobin appears to be at baseline.
Acute thrombocytopenia -116k. Unclear etiology. Monitor for now.
Full code
Anticipated Discharge: > 48 hours
Subjective/Interval History
-
Date of Service: May 29, 2025
Patient seen and examined, no complaints. Denies shortness of breath.
Objective Data
-
Labs:
Laboratory Results
05/29/25 05/29/25 05/29/25
03:27 04:08 04:24
WBC 5.5
Hgb 8.1 L
Hct 26.0 L
Plt Count 116 L
HCO3 19.7 L
Sodium 132 L
Potassium 5.2 H
Chloride 98
Carbon Dioxide 20 L
BUN 78 H
Creatinine 4.3 H*
Glucose 839 H* 784 H*
Calcium 8.5
Total Bilirubin Cancelled 0.6
AST Cancelled 19
ALT Cancelled 11
Alkaline Phosphatase Cancelled 97
05/29/25 05/29/25 05/29/25
06:20 08:00 12:00
WBC
Hgb
Hct
Plt Count
HCO3
Sodium Pending Pending
Potassium Pending Pending
Chloride Pending Pending
Carbon Dioxide Pending Pending
BUN Pending Pending
Creatinine Pending Pending
Glucose 740 H* Pending Pending
Calcium Pending Pending
Total Bilirubin
AST
ALT
Alkaline Phosphatase
05/29/25 05/29/25
16:00 20:00
WBC
Hgb
Hct
Plt Count
HCO3
Sodium Pending Pending
Potassium Pending Pending
Chloride Pending Pending
Carbon Dioxide Pending Pending
BUN Pending Pending
Creatinine Pending Pending
Glucose Pending Pending
Calcium Pending Pending
Total Bilirubin
AST
ALT
Alkaline Phosphatase
Vital Signs:
Vital Signs
Temp Pulse Resp BP Pulse Ox
97.4 F 55 18 171/68 97
05/29/25 07:15 05/29/25 08:08 05/29/25 07:30 05/29/25 08:08 05/29/25 07:30
I&O
05/28/25 05/29/25 05/30/25
06:59 06:59 06:59
Intake Total 2059. 6.7 / 6.7
Balance 2059 6.7 / 6.7
Review of Systems
-
History Source: Patient
All other systems: Reviewed and negative
--- NOTE | 2025-05-29 08:22 | PN.DE.MGMTRT ---
Insulin Management
- -
05/29/2025: Diabetes Management Consult
This is a 60-year-old male who was brought to the ED by ambulance due to difficulty getting up after sliding to the floor.
PMH: CAD s/p stenting, ICM with CHF EF 35% Diastolic dysfunction, JESSENIA, CKD stage III baseline Cr 2-3, Hypothyroid and IDDM.
Reports 2 days of elevated blood glucose readings, decided not to take his insulin despite the elevations because he had trouble walking to the fridge due to swelling in his feet. He notes feet are increasing swelling and tonight while attempting
to return to his bed from his couch he slid to the floor and called an ambulance as was unable to crawl to his bed. He was noted for a serum glucose of 839, elevated beta hydroxybutyrate to 4.3. pH was 7.27. Anion gap 14, suggestive of a mixed
high anion gap and non-gap acidosis. He was started on HHS-DKA protocol.
Pt is awake, alert, resting in bed in NAD, offers no complaints, flat affect, able to discuss diabetes care plan.
States he has been diabetic for over 10 years. He was staking Glargine 15 units in AM, Humalog 7 units before meals and Farxiga 10mg daily but states he has
not been taking his insulin and Farxiga for some time.
Sees Endocrine associates Dr. Cordero, and uses CGM- Nirmal 3. A1C 6.2% in setting of Anemia as of 05/03/25
Current Glucose remains > 600, requiring 6.7 units of insulin/hr.
Will cont HHS-DKA protocol and reassess for readiness to transition to SQ insulin when GAP has closed, preferably x2 for
Discussed with Nurse. Will cont to follow
Diabetes History
- -
Type of Diabetes: 2 requiring insulin
Pre-Admission Diabetes Regimen
05/29/25
03:27
Creatinine 4.3 H*
Insulin Pump Settings
IP Diabetes Regimen
05/29/25 05/29/25 05/29/25
03:18 03:27 04:24
Glucose 839 H* 784 H*
POC Glucose > 600 H*
05/29/25 05/29/25
06:17 06:20
Glucose 740 H*
POC Glucose > 600 H*
Meal type: Breakfast
Patient Education
[2025-05-29 08:30] LABS: Glucose - Point of Care > 600 mg/dl (70-99)
--- NOTE | 2025-05-29 08:30 | PTCARENOTE ---
Discussed the plan of care at the bedside with Dr. Woodruff. Pt reported that he just didn't take his Insulin from the fridge but was out of his Torsemide and did not pick it up from the pharmacy. He denies feeling down, depressed, or hopeless and
reported no other reason for not taking his Insulin for a couple days. Discussed holding parameters for Coreg due to bradycardia 54-55 currently, will hold this AM's dose due to HR [address] Woodruff. Psychiatry consultaslo ordered per
Ranjan. Pt is aware of the plan of care.
--- NOTE | 2025-05-29 08:33 | CON.CAR ---
Consultation
Consultation Request
Date/Time Consultation Requested: 05/29/2025 at 8 AM
Date/Time Consultation Performed: 05/29/2025 at 9 AM
Requesting Provider: Dr. Woodruff
Performing Provider: Dr. Shane Amaya
Reason for Consultation: Heart failure
Medical History
-
History of Present Illness:
Patient is a 60-year-old man admitted with weakness, glucose of 839 progressive edema and noncompliance having stopped most of his medications in the last month or 2 in part related to lack of insurance coverage. Found to be hypothermic with a pH
of 7.27 and elevated hydroxybutyrate level, hemoglobin 8.1.
He had a hospitalization at in October 2024 for acute HFrEF. Echo with EF 35%. Outpt Torsemide increased and meds optimized. Repeat echo 02/2025 EF 35% and ICD advised but pt declined
Patient follows with Júnior Mayo, [facility]. I was able to obtain records. Patient was last seen in July 2024 and was stable. He was continued on HF medication regimen which included Entresto 49-51 mg twice daily,
carvedilol 12.5 mg twice daily, and Farxiga 10 mg daily, hydralazine 50 mg 3 times daily, and torsemide 20 mg daily.
Since then, patient reports he has been in between jobs and is now on disability. He stopped taking all of the above meds 2-3 months ago, except for torsemide which he has continued. He has also continued taking his insulin and Synthroid. At one
point cost was an issue for meds but he tells me he now has insurance. He recently moved to [facility] and lives with his son. He is on disability.
He reports shortness of breath with exertion on and off for the past couple months. The last time he felt shortness of breath like this he had pneumonia. He was seen by his PCP yesterday and had labs. He received a call today that his labs
indicated heart failure and was advised to go to the ED. He reports PND and orthopnea. No edema. Denies chest pain, palpitations. Occasionally feels lightheaded when he stands up or goes in the shower. Tells me his baseline weight is 140 pounds.
PMH: CAD s/p WILMAR of large first septal senior lead developer branch 05/2022, waxing and waning cardiomyopathy over the years, most recent echocardiogram 02/2025 at with EF 35%, chronic kidney disease, baseline creatinine 3.0, hypertension, hyperlipidemia,
hypothyroidism, recurrent pleural effusions, orthostatic hypotension, diabetes, obstructive sleep apnea who utilizes oxygen at night, right tibial/fibular fracture status post ORIF 10/2023 at .
ED evaluation:
proBNP greater than 27,000
Troponin 0.026
BUN/creatinine 44/2.9, NA 140, K4.2, hemoglobin 10.6
COVID-negative
Chest x-ray with mild left lower lobe pneumonia
EKG normal sinus rhythm , lateral T wave inversions, LVH
Echocardiogram from February 2023 with improved ejection fraction of 65%. He also had abnormal speckling on echo and was worked up for cardiac amyloid with endocardial biopsy which was negative.
Past medical history:
Coronary artery disease
s/p WILMAR of large first septal senior lead developer branch 05/2022
Heart failure with recovered cardiomyopathy on echo 02/2023, repeat echo at 10/2023 while hospitalized for tib-fib fracture: EF 45-50%, history of thoracentesis
Myocardial biopsy 06/05/2022 cardiomyocytes with occasional block shaped nuclei, [place] red special stain is negative
Recurrent pleural effusions follows with Dr. Arenas thoracic surgery
Hypertension
Hyperlipidemia
Hypothyroidism
Type 2 diabetes
Chronic anemia
Obstructive sleep apnea, uses 3 L of oxygen at night
History of Pleural effusion
history of pneumonia
Sinus bradycardia on high dose Coreg
Chronic anemia
Orthostatic hypotension
Right tibial/fibular fracture status post surgery 11/03/2023
Past Medical History
Past Medical History: CAD (s/p WILMAR of large first septal senior lead developer branch 05/2022)
Past Surgical History: Other (Third molar extraction, eye surgery)
Social History
Tobacco: Non-Smoker
Alcohol: None
Drug: None
Living: With Family
Employment: Disabled
Family History
Family History: Reviewed & Not Pertinent
Allergies / Home Medications
Allergy/AdvReac Type Severity Reaction Status Date / Time
No Known Allergies Allergy Verified 05/29/25 03:12
�Medication �Instructions �Recorded �Confirmed �Type
atorvastatin 40 mg tablet 40 mg PO HS High Cholesterol 02/05/22 05/29/25 History
levothyroxine 112 mcg tablet 112 mcg PO DAILY Thyroid 11/01/23 05/29/25 History
(Synthroid)
omega-3 fatty acids 1,000 mg PO DAILY Supplement 04/15/24 05/29/25 History
aspirin 81 mg tablet,delayed 81 mg PO DAILY Blood Clot 11/17/24 05/29/25 History
release Prevention/Tx
carvedilol 12.5 mg tablet (Coreg) 12.5 mg PO BID Heart Failure 11/17/24 05/29/25 History
dapagliflozin propanediol 10 mg 10 mg PO DAILY Diabetes 11/17/24 05/29/25 History
tablet (Farxiga)
insulin lispro 100 unit/mL 7 sliding scale dose SC AC Diabetes 11/17/24 05/29/25 History
subcutaneous pen (Humalog KwikPen
(U-100) Insulin)
hydralazine 50 mg tablet 50 mg PO BID #60 tabs 11/20/24 05/29/25 Rx
insulin glargine 100 unit/mL (3 15 unit (0.15 mL) SC DAILY 11/20/24 05/29/25 Rx
mL) subcutaneous pen Diabetes #0 mL
torsemide 20 mg tablet 30 mg (1.5 x 20 mg) PO DAILY #60 11/20/24 05/29/25 Rx
tabs
Review of Systems
-
All other systems: Negative unless noted
Physical Exam
Vital Signs
Temp Pulse Resp BP Pulse Ox
36.3 C 55 18 171/68 97
09/29/25 07:15 05/29/25 08:08 05/29/25 07:30 05/29/25 08:08 05/29/25 07:30
Lab Results
05/29/25 03:27
Xyo-S-Lsdmrtxujsg Pept > 30429 pg/ml 05/29/25 03:48
Physical Exam
General: Other (Flat affect, appears somewhat depressed)
HEENT: Normocephalic
Respiratory: Other (Mildly diminished/tubular breath sounds left base)
Cardiac: S1/S2, Regular Rhythm and Other (No murmur)
Musculoskeletal: Edema (Trace to 1+)
Skin: Warm and Dry
Neuro: AO x 3 (Flat affect)
Impression / Plan
-
Impression:
Diabetic ketoacidosis
Acute on chronic HFrEF
Medical noncompliance
JAMAR on CKD stage IV
CAD, history of septal senior lead developer stent
Recurrent pleural effusions, presumably related to heart failure
Hypertension
Hyperlipidemia
Hypothyroidism
Type 2 diabetes
Chronic anemia
Obstructive sleep apnea
Orthostatic hypotension
Plan:
He presents with acute on chronic HFrEF in the setting of diabetic ketoacidosis.
DKA and HFrEF may largely relate to noncompliance.
He is hypertensive, agree with increase in hydralazine and nitrates.
At present, spironolactone, SGLT 2 antagonist contraindicated. Continue carvedilol.
Await follow-up echo study.
Data Reviewed
-
EKG: Tracing Personally Visualized and interpreted (Sinus bradycardia, LVH, nonspecific ST and T changes, borderline QT interval)
Radiology: Image Personally Visualized and interpreted (Cardiomegaly, small effusions left greater than right, minor vascular congestion)
Labs: Labs Reviewed by me (Hemoglobin 8.1, white count 5.5 platelets 116, pH 7.27/pO2 56/pCO2 43, bicarb 20, proBNP greater than 27,000, glucose 784, LFTs are normal, Sodium 132 on presentation, creatinine 4.3, baseline creatinine 2-2.3, more
recently 2.7-2.9 test, TSH normal)
Old Records: Reviewed
[2025-05-29 08:54] LABS: Blood Urea Nitrogen 73 mg/dl (9-20); Calcium 7.9 mg/dl (8.4-10.2); Carbon Dioxide 24 mmol/L (22-30); Chloride 103 mmol/L (98-107); Estimated Creatinine Clearance 19 ml/min; Potassium 4.4 mmol/L (3.5-5.1); Sodium 135 mmol/L (135-145); eGFR 15.95
[2025-05-29 09:14] LABS: Glucose 683 mg/dl (70-99)
[2025-05-29 09:42] LABS: Glucose - Point of Care > 600 mg/dl (70-99)
[2025-05-29 09:53] LABS: Urine Character Clear (Clear)
[2025-05-29 10:04] LABS: Urine Red Blood Cell 0-2 /HPF (0-2); Urine Squamous Cell 0-2 /LPF (Few)
--- NOTE | 2025-05-29 10:05 | CM ---
Initial assessment completed with patient who lives alone in a basement apartment with 7 steps down to enter. 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 Has a continuous glucose monitor. No other DME or in-home services. No HC
POA. No VA benefits. No psychiatric hospitalizations. PA is Galen Arteaga. Pharmacy is [facility] on [address] in [place]. Discharge POC: Anticipate home with no needs.
[2025-05-29 10:13] LABS: Magnesium 2.3 mg/dl (1.6-2.3)
[2025-05-29 10:26] LABS: Glucose 612 mg/dl (70-99)
[2025-05-29 10:31] LABS: Troponin I 0.035 ng/ml
--- NOTE | 2025-05-29 10:32 | W.CON.NEPH ---
Addendum entered and electronically signed by Galen Montejo MD 05/29/25 14:14:
I agree with the resident's note with the following addition
60-year-old gentleman with diabetes mellitus type 2 controlled on insulin therapy, ischemic cardiomyopathy ejection fraction of 35% on chronic diuretic therapy, CKD 4 baseline creatinine about 3.5. In the last several weeks he has not been taking
his medicines as prescribed, only taking several of them. There is no rationale as to which ones he does not take. It does appear that he has not been taking insulin or torsemide. He has not been on Farxiga for some time. He came to the
emergency room because of difficulty with ambulation his oral intake has been poor. At the time of admission his creatinine was 4.3 up from his baseline of around 3.5 representing acute kidney injury. He also had mild elevation of potassium and
mild acidosis. His sugar was quite elevated in the 800 range with elevated beta hydroxybutyrate level. Metabolic acidosis.
Patient is awake alert oriented and in no distress. Mood and affect were pleasant, insight and judgment were good. Pupils are equal round and reactive to light, extraocular movements are intact, sclera were anicteric. Hearing was normal, ears and
nose are intact. Oropharynx was clear. Neck was supple with trachea midline and no thyromegaly. Heart was regular rate and rhythm without rubs. Lower extremities with 1+ edema. Lungs were coarse to auscultation bilaterally and with normal
excursion. Abdomen was soft, nontender, with normal active bowel sounds, and no hepatosplenomegaly. Skin was without rash and with normal turgor.
Laboratory values as well as past values
Chest x-ray 05/29/2025 by my reading mild pulmonary edema
EKG 05/29/2025 by my reading sinus pericardia LVH repolarization abnormality
Assessment
JAMAR
CKD 4
Diabetes mellitus type 2
Hypertension
Edema
Heart failure reduced ejection fraction 35%
To thrive
Hyponatremia
Hyperkalemia
Metabolic acidosis
Plan
Initial intravascular volume depletion from hyperglycemia corrected with IV fluids
Agree with diuretics at this time given his total body volume overload with heart failure reduced ejection fraction decompensated
Check urine studies ideally before diuretics
Renal ultrasound
At this point I discussed with patient is prior medication regimen. He does not appear to be invested in his health
We discussed the possibility of dialysis and he would not refuse if needed.
Original Note:
Medical History
Past Medical History
Past Medical History: CAD, CHF, HTN, Hypothyroidism, IDDM and Other (JESSENIA, CKD4)
Past Surgical History: None
Social History
Tobacco: Former Smoker
Alcohol: Occasional
Personal:
Living: With Family
Allergies / Home Medications
Allergy/AdvReac Type Severity Reaction Status Date / Time
No Known Allergies Allergy Verified 05/29/25 03:12
�Medication �Instructions �Recorded �Confirmed �Type
atorvastatin 40 mg tablet 40 mg PO HS High Cholesterol 02/05/22 05/29/25 History
levothyroxine 112 mcg tablet 112 mcg PO DAILY Thyroid 11/01/23 05/29/25 History
(Synthroid)
omega-3 fatty acids 1,000 mg PO DAILY Supplement 04/15/24 05/29/25 History
aspirin 81 mg tablet,delayed 81 mg PO DAILY Blood Clot 11/17/24 05/29/25 History
release Prevention/Tx
carvedilol 12.5 mg tablet (Coreg) 12.5 mg PO BID Heart Failure 11/17/24 05/29/25 History
dapagliflozin propanediol 10 mg 10 mg PO DAILY Diabetes 11/17/24 05/29/25 History
tablet (Farxiga)
insulin lispro 100 unit/mL 7 sliding scale dose SC AC Diabetes 11/17/24 05/29/25 History
subcutaneous pen (Humalog KwikPen
(U-100) Insulin)
hydralazine 50 mg tablet 50 mg PO BID #60 tabs 11/20/24 05/29/25 Rx
insulin glargine 100 unit/mL (3 15 unit (0.15 mL) SC DAILY 11/20/24 05/29/25 Rx
mL) subcutaneous pen Diabetes #0 mL
torsemide 20 mg tablet 30 mg (1.5 x 20 mg) PO DAILY #60 11/20/24 05/29/25 Rx
tabs
Review of Systems
-
History Source: Patient
Respiratory: Other (denies trouble breathing)
Cardiac: Other (denies chest pain or dizziness)
Abdomen/GI: Diarrhea (watery stool once daily over past few days)
: Other (reduced urine output over past few days. No retention, dysuria, difficulty voiding or flank pain)
Physical Exam
Vital Signs
Vital Signs
Temp Pulse Resp BP Pulse Ox
97.4 F 54 13 170/101 96
05/29/25 07:15 05/29/25 08:30 05/29/25 08:30 05/29/25 08:30 05/29/25 08:30
Lab Results
WBC 5.5 10^3/uL (4.8-10.8) 05/29/25 03:27
RBC 2.63 10^6/uL (4.70-6.10) L 05/29/25 03:27
Hgb 8.1 g/dL (13.0-18.0) L 05/29/25 03:27
Hct 26.0 % (39.0-52.0) L 05/29/25 03:27
Plt Count 116 10^3/uL (130-400) L 05/29/25 03:27
eGFR 15.95 05/29/25 08:17
Phosphorus 5.0 mg/dl (2.5-4.5) H 05/29/25 08:17
Dwo-W-Kfzvuetnjme Pept > 69878 pg/ml 05/29/25 03:48
Albumin 2.8 g/dl (3.5-5.0) L 05/29/25 04:24
Physical Exam
General: Awake, Alert and Oriented
Respiratory: Clear and Nonlabored Respirations; Negative Wheezes, Crackels or Rhonchi
Cardiac: S1/S2, Edema (Bilateral 2+) and Other (bradycardic); Negative Murmur or Rub
Abdomen: Soft, Nontender, Nondistended and Normal Bowel Sounds
Genito-urinary: No Costovertebral Tender and Clear Urine
Musculoskeletal: Edema (2+ bilateral LE)
Assessment/Plan
-
60 year old male with history of IDDM, HFrEF EF 35%, CKD4, HTN, anemia of chronic disease, CAD, hypothyroidism, who presents with HHNK, JAMAR on CKD, and acute heart failure exacerbation. He had worsening LE swelling, tiredness, watery stool, reduced
urine output over the past few days. He reports non-adherence to his insulin over the past 2 days because he was too tired to get his med out of the fridge, and also missed doses of his home Torsemide after he ran out of them two days ago. He is
known to Dr. Parker. Most recent HbA1c 6.2 05/2025, Cr 3.6.
On arrival, he was mildly hyperkalemic, bradycardic, anemic/thrombocytopenic, hypothermic, with elevated ketones (b-hydroxybutyrate 4.23), proBNP 27,000, pH 7.27, bicarb 2, cr 4.3.
PLAN:
JAMAR on CKD4: Cr 4.1
- Likely secondary to reduced effective kidney perfusion from hyperglycemic state causing diuresis
- CKD secondary to diabetic nephropathy, hypertensive nephropathy and cardiorenal syndrome
- S/P IVF, JAMAR expected to improve.
- Check FeNa
- Agree with Lasix 40mg IV BID
- Follow IandO, status mireles
- Await kidney US. follow BMP
- Outpt Cr 3.6
- Pt is agreeable to dialysis if necessary although would prefr to avoid it. At the moment, no acute need.
HFrEF exacerbation:
- Agree with Lasix 40mg IV BID
HHNK:
Management per primary
--- NOTE | 2025-05-29 11:00 | PTCARENOTE ---
Dr. Butcher notified of core temperature of 94. Ana huloganer applied for normothermia as ordered. Pt is aware of the plan to use the warming blanket to obtain normothermia. He nodded his head in understanding.
[2025-05-29] MEDS: LASIX 40 MG IV (11:35)
[2025-05-29] MEDS: IMDUR (EXTENDED RELEASE) 30 MG PO (11:35)
[2025-05-29 11:51] LABS: Glucose - Point of Care 522 mg/dl (70-99)
[2025-05-29 12:23] LABS: Glucose 516 mg/dl (70-99)
[2025-05-29 12:59] LABS: Blood Urea Nitrogen 72 mg/dl (9-20); Calcium 8.0 mg/dl (8.4-10.2); Carbon Dioxide 24 mmol/L (22-30); Chloride 103 mmol/L (98-107); Estimated Creatinine Clearance 18 ml/min; Glucose 516 mg/dl (70-99); Sodium 135 mmol/L (135-145); eGFR 15.06
[2025-05-29 13:33] LABS: Potassium 4.3 mmol/L (3.5-5.1)
[2025-05-29 13:49] LABS: Glucose - Point of Care 435 mg/dl (70-99)
[2025-05-29 14:33] LABS: Glucose 415 mg/dl (70-99)
[2025-05-29 15:47] LABS: Glucose - Point of Care 355 mg/dl (70-99)
[2025-05-29] MEDS: LASIX IV (17:11)
[2025-05-29] MEDS: APRESOLINE PO (17:11)
--- NOTE | 2025-05-29 17:12 | PTCARENOTE ---
Discussed with Dr. Butcher his recent BP's and medications. Will hold all antihypertensives as ordered. Will also hold Lasix and will continue to monitor.
[2025-05-29 17:15] LABS: Glucose - Point of Care 248 mg/dl (70-99)
[2025-05-29 17:47] LABS: Blood Urea Nitrogen 74 mg/dl (9-20); Calcium 7.9 mg/dl (8.4-10.2); Carbon Dioxide 27 mmol/L (22-30); Chloride 105 mmol/L (98-107); Estimated Creatinine Clearance 19 ml/min; Glucose 235 mg/dl (70-99); Potassium 4.3 mmol/L (3.5-5.1); Sodium 135 mmol/L (135-145); eGFR 15.95
[2025-05-29 18:12] LABS: Glucose - Point of Care 236 mg/dl (70-99)
[2025-05-29 19:13] LABS: Glucose - Point of Care 179 mg/dl (70-99)
[2025-05-29 20:15] LABS: Glucose - Point of Care 134 mg/dl (70-99)
[2025-05-29 20:35] LABS: Blood Urea Nitrogen 74 mg/dl (9-20); Calcium 8.0 mg/dl (8.4-10.2); Carbon Dioxide 27 mmol/L (22-30); Chloride 105 mmol/L (98-107); Estimated Creatinine Clearance 19 ml/min; Glucose 120 mg/dl (70-99); Potassium 4.3 mmol/L (3.5-5.1); Sodium 135 mmol/L (135-145); eGFR 15.95
[2025-05-29 21:12] LABS: Glucose - Point of Care 108 mg/dl (70-99)
[2025-05-29] MEDS: LANTUS 0.18 UNITS SC (21:24)
[2025-05-29] MEDS: LIPITOR 40 MG PO (21:35)
--- NOTE | 2025-05-29 22:20 | PTCARENOTE ---
Patient lethargic thus far this shift. Awakens to verbal stimuli, affect flat. Patient denies pain, repositioning frequently in bed independently. SB on the monitor with HR in the 50's. +3 pitting edema to bl le, weak pp. Lungs cta, breathing
shallow, pox 95% on 1L o2 n/c. Patient noted with decreased UO at 2100, discussed with Jw HERNANDEZ. Will monitor. UO increased to 70ml at 2200. Per Jw HERNANDEZ, hold Insulin gtt when Lantus administered. Lantus administered at 21:30, gtt held
at that time. US completed this evening. Patient currently resting in bed, call grover in reach. Will continue to monitor patient closely.
[2025-05-29 22:24] LABS: Glucose - Point of Care 91 mg/dl (70-99)
[2025-05-29 23:03] LABS: Glucose - Point of Care 100 mg/dl (70-99)
[2025-05-30] VITALS (27 sets, daily range): BP systolic 87–185; BP diastolic 45–83; BMI 23.2
[2025-05-30] MEDS: HEPARIN 5000 UNITS SC ×4 (00:07→23:58)
[2025-05-30 00:25] LABS: Glucose - Point of Care 86 mg/dl (70-99)
--- NOTE | 2025-05-30 00:36 | PTCARENOTE ---
Monitoring bg, patient instructed on s/s of hypoglycemia and to notify RN. Understanding verbalized. Ana hugger off at this time as core temp 97.7. Assessment overall unchanged. Will continue to monitor patient closely.
[2025-05-30 01:28] LABS: Glucose - Point of Care 86 mg/dl (70-99)
[2025-05-30 02:40] LABS: Glucose - Point of Care 74 mg/dl (70-99)
[2025-05-30 03:50] LABS: Glucose - Point of Care 90 mg/dl (70-99)
[2025-05-30 03:55] LABS: Hematocrit 22.0 % (39.0-52.0); Hemoglobin 7.4 g/dL (13.0-18.0); Mean Corp Hgb Conc. 33.6 g/dL (33.0-37.0); Mean Corpuscular Volume 94.8 fL (80.0-94.0); Platelet Count 111 10^3/uL (130-400); Red Cell Dist. Width 14.5 % (11.5-14.5)
[2025-05-30 04:32] LABS: Troponin I 0.042 ng/ml
[2025-05-30 04:39] LABS: Blood Urea Nitrogen 73 mg/dl (9-20); Calcium 7.9 mg/dl (8.4-10.2); Carbon Dioxide 26 mmol/L (22-30); Chloride 106 mmol/L (98-107); Estimated Creatinine Clearance 19 ml/min; Glucose 76 mg/dl (70-99); Potassium 4.7 mmol/L (3.5-5.1); Sodium 136 mmol/L (135-145); eGFR 15.95
[2025-05-30] MEDS: SYNTHROID 112 MCG PO (05:15)
[2025-05-30] MEDS: DEXTROSE 50% SYRINGE 12.5 GRAMS IV (05:20)
[2025-05-30 05:33] LABS: Glucose - Point of Care 68 mg/dl (70-99)
[2025-05-30 05:59] LABS: Glucose - Point of Care 129 mg/dl (70-99)
--- NOTE | 2025-05-30 06:03 | PTCARENOTE ---
Patient bg 68, prn dextrose administered per order. BG increased to 120's. Patient awakens to verbal stimuli, denies pain. Call grover within reach, will continue to monitor.
--- NOTE | 2025-05-30 07:46 | W.PN.HOSP.TC ---
Today's Communication/Plan
-
Continue IV Lasix
Telemetry transfer
PT/OT
PMR consult
Assessment / Plan
Assessment / Plan
Gen-AAOx3, NAD
HEENT-NC, AT, anicteric, clear oral mm
Neck-supple
CV-reg, no M, +S1/S2
Lungs-clear B/L
Abd-soft, NT, ND
Ext-improved bilateral lower extremity edema
Musculoskeletal-no cyanosis, clubbing
Skin-warm and dry
Neuro-grossly non-focal
Psych-calm, cooperative
DM2 with hyperglycemia -primarily HHNK although he does have a mild anion gap of 14, but significant glucose elevation points towards HHNK. Beta hydroxybutyrate 4.23.
Transitioned off insulin drip 05/29, continue basal/bolus insulin. Diabetes CROTCH BREAKER following. He has a continuous glucose monitor.
Farxiga on hold for JAMAR.
Patient admits to noncompliance with his home diabetes regimen. He cannot tell me why he decided not to take his meds. He did have access to all his meds, with the exception of torsemide which he ran out of.
He denies feeling depressed, denies suicidal ideation. Denies history of mental illness. He understands that DKA and hyperglycemia can potentially cause .
Recent hemoglobin A1c 6.2%, 05/03/2025. This may not be reliable due to his chronic anemia.
Dr. Cordero, endocrinology, monitors his diabetes.
JAMAR on CKD 4 -likely due to intravascular volume depletion due to osmotic diuresis due to significant hyperglycemia. Creatinine of 4.3 on presentation, baseline creatinine usually 2.8. Creatinine plateaued at 4.1 so far.
Renal ultrasound with mild increased renal echogenicity suggesting medical renal disease, no calculus or hydronephrosis.
Acute on chronic heart failure with preserved EF -weight is up significantly compared to October 2024. In October his weight was 61 kg, currently 69 kg. Not compliant with torsemide, states he ran out several days prior to admission. Weight remains
unchanged today at 69 kg. However I's and O's are negative. Continue IV Lasix. Did not receive evening dose yesterday.
BNP greater than 27,000.
Admission chest x-ray with mild to moderate pulmonary edema. Left lower lobe consolidation likely due to atelectasis, clinically doubt pneumonia. Small left pleural effusion.
Echocardiogram shows improvement of LVEF to 52%, previously 35% in February.
Essential hypertension -stable.
Hypothyroidism -TSH 4.0, continue levothyroxine.
Hyperlipidemia -atorvastatin.
Chronic anemia -likely related to CKD. Hemoglobin down slightly to 7.4, possibly related to hemodilution. No evidence of bleeding. Monitor for now.
Acute thrombocytopenia -111k. Unclear etiology. Monitor for now.
Full code
Dispo -PT recommending acute rehab. Consult PMR.
Transfer to telemetry
Anticipated Discharge: > 48 hours
Subjective/Interval History
-
Date of Service: May 30, 2025
Patient seen and examined. No complaints. Did not sleep well due to interruptions. Denies shortness of breath.
Objective Data
-
Labs:
Laboratory Results
05/29/25 05/30/25
20:02 03:44
WBC 5.6
Hgb 7.4 L
Hct 22.0 L
Plt Count 111 L
Sodium 135 136
Potassium 4.3 4.7
Chloride 105 106
Carbon Dioxide 27 26
BUN 74 H 73 H
Creatinine 4.1 H* 4.1 H*
Glucose 120 H 76
Calcium 8.0 L 7.9 L
Vital Signs:
Vital Signs
Temp Pulse Resp BP Pulse Ox
97.5 F 53 14 156/72 97
05/30/25 03:12 05/30/25 06:30 05/30/25 06:30 05/30/25 06:30 05/30/25 06:30
I&O
05/29/25 05/30/25 05/31/25
06:59 06:59 06:59
Intake Total 2059 145.7 / 145.7
Output Total 1117 / 1117
Balance 2059 -971.3 / -971.3
Review of Systems
-
History Source: Patient
All other systems: Reviewed and negative
--- NOTE | 2025-05-30 08:00 | PTCARENOTE ---
Assumed care of patient at 0700. Admitted with DKA, transitioned off insulin drip on previous shift. ACHS glucose checks in progress.
Patient's pulse Ox decreasing into 80s while sleeping on 2LNC, increased to 3LNC- pulse ox site changed. AAOx3, flat affect and withdrawn. Resting unless interacted with, using incentive spirometry only when prompted.
[2025-05-30 08:04] LABS: Glucose - Point of Care 101 mg/dl (70-99)
[2025-05-30] MEDS: ASPIR LOW (ENTERIC COATED) 81 MG PO (08:37)
[2025-05-30] MEDS: APRESOLINE 50 MG PO ×2 (08:40→16:43)
[2025-05-30] MEDS: COREG PO ×2 (08:41→20:13)
[2025-05-30] MEDS: IMDUR (EXTENDED RELEASE) 30 MG PO (08:42)
[2025-05-30] MEDS: LASIX 40 MG IV ×2 (08:43→16:42)
[2025-05-30] MEDS: NOVOLOG FLEXPEN 4 UNITS SC ×3 (08:52→17:33)
--- NOTE | 2025-05-30 09:04 | PN.DE.MGMTRT ---
Insulin Management
- -
05/30/2025: Diabetes Management Consult
This is a 60-year-old male who was brought to the ED by ambulance due to difficulty getting up after sliding to the floor.
PMH: CAD s/p stenting, ICM with CHF EF 35% Diastolic dysfunction, JESSENIA, CKD stage III baseline Cr 2-3, Hypothyroid and IDDM.
Reports 2 days of elevated blood glucose readings, decided not to take his insulin despite the elevations because he had trouble walking to the fridge due to swelling in his feet. He notes feet are increasing swelling and tonight while attempting
to return to his bed from his couch he slid to the floor and called an ambulance as was unable to crawl to his bed. He was noted for a serum glucose of 839, elevated beta hydroxybutyrate to 4.3. pH was 7.27. Anion gap 14, suggestive of a mixed
high anion gap and non-gap acidosis. He was started on [facility]-DKA protocol. Prior to admission was taking Farxiga 10 mg daily, lantus 15 units daily with humalog AC. A1C on admission 6.2%. States he has been diabetic for over 10 years. He was
staking Glargine 15 units in AM, Humalog 7 units before meals and Farxiga 10mg daily but states he has not been taking his insulin and Farxiga for some time.
Sees Endocrine associates Dr. Cordero, and uses CGM- Nirmal 3.
Pt is awake, alert, resting in bed in NAD, offers no complaints, flat affect, able to discuss diabetes care plan. Patient has very poor insight as to importance of taking insulin.
Transitioned from insulin infusion last evening with 18 units lantus. Glucose @ 5:17 68. Will stop hs lantus and start patients normal AM dose tomorrow AM. Will continue 4 units novolog AC with low corrective insulin.
Discussed with Nurse. Will cont to follow
Diabetes History
- -
Type of Diabetes: 2 requiring insulin
Pre-Admission Diabetes Regimen
05/29/25 05/29/25 05/29/25
11:46 17:24 20:02
Creatinine 4.3 H* 4.1 H* 4.1 H*
05/30/25
03:44
Creatinine 4.1 H*
Insulin Pump Settings
IP Diabetes Regimen
05/29/25 05/29/25 05/29/25
08:17 09:31 09:52
Glucose 683 H* 612 H*
POC Glucose > 600 H*
05/29/25 05/29/25 05/29/25
11:40 11:46 11:46
Glucose 516 H* 516 H*
POC Glucose 522 H*
05/29/25 05/29/25 05/29/25
13:38 13:45 15:36
Glucose 415 H
POC Glucose 435 H 355 H
05/29/25 05/29/25 05/29/25
17:04 17:24 18:01
Glucose 235 H
POC Glucose 248 H 236 H
05/29/25 05/29/25 05/29/25
19:02 20:02 21:00
Glucose 120 H
POC Glucose 179 H 134 H 108 H
05/29/25 05/29/25 05/30/25
22:12 22:51 00:13
Glucose
POC Glucose 91 100 H 86
05/30/25 05/30/25 05/30/25
01:17 02:28 03:39
Glucose
POC Glucose 86 74 90
05/30/25 05/30/25 05/30/25
03:44 05:17 05:47
Glucose 76
POC Glucose 68 L 129 H
05/30/25
07:53
Glucose
POC Glucose 101 H
Patient Education
--- NOTE | 2025-05-30 09:16 | W.PN.CARDCBS ---
Today's Communication / Plan
-
He is improving. Continue medical therapy for acute heart failure with preserved ejection fraction.
We discussed the importance of compliance. Per continue Lasix 40 mg IV twice daily. Creatinine at 4.1 and slightly improved. Will need to follow. Baseline appears to be around 3-3.5.
Continue Imdur and hydralazine. May need to further titrate hydralazine. Continue carvedilol.
Continue medical therapy for coronary artery disease. Continue aspirin, Coreg, and atorvastatin.
Will need to arrange follow-up.
Impression / Plan
-
Impression:
Diabetic ketoacidosis
Acute on chronic HFrEF
Medical noncompliance
JAMAR on CKD stage IV
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
Recurrent pleural effusions, presumably related to heart failure
Hypertension
Hyperlipidemia
Hypothyroidism
Type 2 diabetes
Chronic anemia
Obstructive sleep apnea
Orthostatic hypotension
Echo May 29, 2025, EF 52%, moderate LVH, Mild MR
Plan:
He presents with acute on chronic HFrEF in the setting of diabetic ketoacidosis.
DKA and HFrEF may largely relate to noncompliance.
Creatinine remains abnormal at 4.1. He does appear to be volume overloaded still. Agree with Lasix 40 mg IV twice daily and follow kidney function.
Continue Imdur and hydralazine. May need to further titrate hydralazine over next 24 hours. Continue carvedilol 12.5 mg p.o. twice daily.
Would continue medical therapy for coronary arteries. Abnormal troponin is likely nonischemic myocardial injury. LVEF overall stable at 52%
Continue aspirin, Coreg, and atorvastatin.
At present, spironolactone, SGLT 2 antagonist contraindicated. Continue carvedilol.
Stable to transfer to floor. I discussed with him the importance of medical compliance.
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
Subjective
Date of Service: May 30, 2025
Sugars are improved. He denies chest pains. Breathing is overall stable. Electrolytes are now stabilized.
Objective
Labs:
05/30/25 03:44
05/30/25 03:44
Labs
Hgb 7.4 g/dL (13.0-18.0) L 05/30/25 03:44
Hct 22.0 % (39.0-52.0) L 05/30/25 03:44
Plt Count 111 10^3/uL (130-400) L 05/30/25 03:44
Sodium 136 mmol/L (135-145) 05/30/25 03:44
Potassium 4.7 mmol/L (3.5-5.1) 05/30/25 03:44
BUN 73 mg/dl (9-20) H 05/30/25 03:44
Creatinine 4.1 mg/dL (0.7-1.3) H* 05/30/25 03:44
Glucose 76 mg/dl (70-99) 05/30/25 03:44
Troponins
05/29/25 05/30/25
09:52 03:44
Troponin I 0.035 H* 0.042 H*
Vital Signs and I&O:
Vital Signs
Temp Pulse Resp BP Pulse Ox
97.2 F 54 14 167/76 97
05/30/25 08:24 05/30/25 08:43 05/30/25 06:30 05/30/25 08:43 05/30/25 06:30
Vital Signs
Temp Pulse Resp BP Pulse Ox
97.2 F 54 14 167/76 97
05/30/25 08:24 05/30/25 08:43 05/30/25 06:30 05/30/25 08:43 05/30/25 06:30
Intake & Output
05/28/25 05/29/25 05/30/25 05/31/25
06:59 06:59 06:59 06:59
Intake Total 2059 145.7 / 145.7
Output Total 1117 / 1117
Balance 2059. -971.3 / -971.3
Physical Exam
Physical Exam
GEN: No distress, awake, Ox3
HEENT: supple, anicteric, mmm
LUNGS: CTA, no wheezes/rales
CV: Reg, S1/S2, 1/6 syst LSB, no gallop
ABD: soft, BS+, NT/ND
EXT: trace edema
NEURO: Gross non-focal
SKIN: No rash
--- NOTE | 2025-05-30 10:21 | W.PN.NEPH.PH ---
Today's Communication / Plan
-
diurese
Assessment/Plan
-
Assessment
JAMAR
CKD 4
Diabetes mellitus type 2
Hypertension
Edema
Heart failure reduced ejection fraction 35%
To thrive
Hyponatremia
Hyperkalemia
Metabolic acidosis
nephrotic range proteinuria from DKD
Plan
continue IV lasix
follow BMP
US renal ok
no acute HD needs currently
wean O2 as allowed
-
-
Date of Service: May 30, 2025
CC / HPI / ROS
-
Chief Complaint:
JAMAR
History of Present Illness:
JAMAR/Cr stable 4.1
BP high
remains on supplemental O2
diuresing with lasix for decompensated HF
Review of Systems:
no CP/SOB
Labs
-
Labs:
WBC 5.6 10^3/uL (4.8-10.8) 05/30/25 03:44
RBC 2.32 10^6/uL (4.70-6.10) L 05/30/25 03:44
Hgb 7.4 g/dL (13.0-18.0) L 05/30/25 03:44
Hct 22.0 % (39.0-52.0) L 05/30/25 03:44
Plt Count 111 10^3/uL (130-400) L 05/30/25 03:44
Sodium 136 mmol/L (135-145) 05/30/25 03:44
Potassium 4.7 mmol/L (3.5-5.1) 05/30/25 03:44
Chloride 106 mmol/L (98-107) 05/30/25 03:44
Carbon Dioxide 26 mmol/L (22-30) 05/30/25 03:44
BUN 73 mg/dl (9-20) H 05/30/25 03:44
Creatinine 4.1 mg/dL (0.7-1.3) H* 05/30/25 03:44
eGFR 15.95 05/30/25 03:44
Glucose 76 mg/dl (70-99) 05/30/25 03:44
Calcium 7.9 mg/dl (8.4-10.2) L 05/30/25 03:44
Phosphorus 5.0 mg/dl (2.5-4.5) H 05/29/25 08:17
Qrt-J-Hupxxxuzbwq Pept > 59938 pg/ml 05/29/25 03:48
Albumin 2.8 g/dl (3.5-5.0) L 05/29/25 04:24
Physical Exam
-
Vital Signs:
Vital Signs
Temp Pulse Resp BP Pulse Ox
97.2 F 54 14 167/76 92
05/30/25 08:24 05/30/25 08:43 05/30/25 06:30 05/30/25 08:43 05/30/25 08:00
Cardiovascular:: Regular rate and rhythm
Respiratory:: Bilateral: Coarse
Lung Excursion:: Normal
Abdomen:: Nontender and Soft
Bowel Sounds:: Normal
Extremity Edema:: +1: Bilateral:
[2025-05-30 11:44] LABS: Glucose - Point of Care 166 mg/dl (70-99)
--- NOTE | 2025-05-30 12:15 | PTCARENOTE ---
Patient OOB to chair with walker and minimal assistance. Encouraged to ambulate with RN, patient declined further ambulation. Assessment otherwise unchanged.
[2025-05-30] MEDS: NOVOLOG FLEXPEN-LOW RESISTANCE 1 UNITS SC (12:19)
--- NOTE | 2025-05-30 14:25 | CM ---
EF @ 35%, CKD 4, No need for HD currently, wean O2, IV/Lasix. Discharge POC: Therapy recommendation for Acute Rehab. [facility]ference [facility].
Will forward referral.
--- NOTE | 2025-05-30 15:45 | TRANSFER ---
Patient transferred from ICU to room 404 bed 2. Report called to receiving RN. auto collision repair instructor in place, taken via wheelchair. Belongings packed and sent with patient.
[2025-05-30 16:07] LABS: Glucose - Point of Care 253 mg/dl (70-99)
[2025-05-30 16:22] LABS: Glucose - Point of Care 251 mg/dl (70-99)
[2025-05-30] MEDS: FLUSH (NSS) 1 FLUSH IV (16:42)
--- NOTE | 2025-05-30 16:51 | PTCARENOTE ---
Received pt in transfer from ICU via wheelchair; accompanied by GREENHOUSE LABORER's Mila and Jefry. Pt able to transfer to bed with assistance/walker; weak, tires easily. Oriented x3. Fall prec initiated. Placed on telemetry-NSR. BP 185/83. pt has +1
edema BLE. On nc 2 lpm- pulse ox 98%, no c/o SOB. Abd large/rounded, no c/o abd discomfort. [place] P/I mod amts clear yellow urine. Afebrile; skin sallow; intact. Oriented to 4East, currently resting in bed without c/o. Will continue to monitor
[2025-05-30] MEDS: NOVOLOG FLEXPEN-LOW RESISTANCE 3 UNITS SC (17:34)
[2025-05-30] MEDS: LIPITOR 40 MG PO (20:14)
[2025-05-30 21:20] LABS: Glucose - Point of Care 264 mg/dl (70-99)
[2025-05-31] VITALS (11 sets, daily range): BP systolic 118–193; BP diastolic 56–93; PULSE 48; O2SAT 95; BMI 22.7
[2025-05-31] MEDS: APRESOLINE 50 MG PO ×5 (00:04→22:12)
[2025-05-31] MEDS: COREG 12.5 MG PO (02:42)
[2025-05-31] MEDS: SYNTHROID 112 MCG PO (05:13)
--- NOTE | 2025-05-31 06:25 | PTCARENOTE ---
pt has been hypertensive throughout the night 180-190s/80-90s. pt asymptomatic and denies CP or palpitations, NSR on tele monitor. WALL COVERING INSTALLER made aware, 50 mg PO hydralazine ordered and administered at 0500. VS checked at 0620 BP 171/79 HR 65, WALL COVERING INSTALLER made
aware. no new orders at this time. plan of care ongoing.
[2025-05-31 07:02] LABS: Hematocrit 22.5 % (39.0-52.0); Hemoglobin 7.3 g/dL (13.0-18.0); Mean Corp Hgb Conc. 32.4 g/dL (33.0-37.0); Mean Corpuscular Volume 94.9 fL (80.0-94.0); Nucleated Red Blood Cells % 0 % (-); Platelet Count 107 10^3/uL (130-400); Red Cell Dist. Width 14.7 % (11.5-14.5)
[2025-05-31 07:24] LABS: ALT (SGPT) 10 U/L (0-50); AST (SGOT) 24 U/L (17-59); Albumin 2.8 g/dl (3.5-5.0); Alkaline Phosphatase 105 U/L (38-126); Blood Urea Nitrogen 71 mg/dl (9-20); Calcium 7.9 mg/dl (8.4-10.2); Carbon Dioxide 29 mmol/L (22-30); Chloride 100 mmol/L (98-107); Estimated Creatinine Clearance 19 ml/min; Glucose 273 mg/dl (70-99); Potassium 4.3 mmol/L (3.5-5.1); Sodium 133 mmol/L (135-145); Total Protein 5.2 g/dl (6.3-8.2); eGFR 15.95
--- NOTE | 2025-05-31 08:05 | PN.DE.MGMTRT ---
Insulin Management
- -
05/31/2025: Diabetes Management Consult Follow up
Patient is 60-year-old male who was brought to the ED by ambulance due to difficulty getting up after sliding to the floor.
PMH: CAD s/p stenting, ICM with CHF EF 35% Diastolic dysfunction, JESSENIA, CKD stage III baseline Cr 2-3, Hypothyroid and IDDM.
Reports 2 days of elevated blood glucose readings, decided not to take his insulin despite the elevations because he had trouble walking to the fridge due to swelling in his feet. He notes feet are increasing swelling and tonight while attempting
to return to his bed from his couch he slid to the floor and called an ambulance as was unable to crawl to his bed. He was noted for a serum glucose of 839, elevated beta hydroxybutyrate to 4.3. pH was 7.27. Anion gap 14, suggestive of a mixed
high anion gap and non-gap acidosis. He was started on [facility]-DKA protocol. Prior to admission was taking Farxiga 10 mg daily, lantus 15 units daily with humalog AC. A1C on admission 6.2%. States he has been diabetic for over 10 years.
Sees Endocrine associates Dr. Cordero, and uses CGM- Nirmal 3.
Pt is awake, alert, resting in bed in NAD, offers no complaints, flat affect, able to discuss diabetes care plan. Patient has very poor insight as to importance of taking insulin.
Transitioned from insulin infusion 05/29 with 18 units lantus @ HS. 05/30 Glucose @ 5:17 68. Glucose range 101 to 264.
To start AM lantus dose 15 units today, will increase AC novolog to 6 units with low corrective insulin.
Discussed with Nurse. Will cont to follow
Diabetes History
- -
Type of Diabetes: 2 requiring insulin
Pre-Admission Diabetes Regimen
05/31/25
06:06
Creatinine 4.1 H*
Insulin Pump Settings
IP Diabetes Regimen
05/30/25 05/30/25 05/30/25
11:32 16:06 16:20
Glucose
POC Glucose 166 H 253 H 251 H
05/30/25 05/31/25
21:18 06:06
Glucose 273 H
POC Glucose 264 H
Meal type: Dinner
Amount consumed: 50%
Patient Education
--- NOTE | 2025-05-31 08:30 | CON.MD ---
Documented by User: Dee Dee Galvan PA-C 05/31/25 09:18
Consultation - Medical
-
Referring Provider:�Juan William
Chief Complaint:�CHF exacerbation
�
History of Present Illness:�60-year-old with PMH of ( insulin-dependent diabetes, hypothyroid, CAD status post stenting, ischemic cardiomyopathy with CHF EF 35% as well as stage II diastolic dysfunction, JESSENIA, CKD stage 4 with baseline creatinine
ranging anywhere from 2-3) presented to the emergency department with uncontrolled hyperglycemia and mild DKA on 05/29/2025 secondary to not taking his insulin. Reports not taking it for at least 2 days and probably more because he does not feel
like walking to his fridge. He also has not taken his torsemide for at least 2 days because he ran out 2 days ago and did not go to the pharmacy to pick it up. He reports compliance with his other medications. Is unaware of any acute weight gain
but does report increasing pedal edema over the last 2 days. Denies polyuria or polydipsia.
In the Emergency Department, he was hypothermic with temp of 34.4, blood pressure of 140/60 with a pulse rate of 50 and was sating 99% on room air. Hemoglobin was 8.1 which is similar to prior, platelets 116 also similar to prior no leukocytosis.
Sodium o 132, potassium 5.2 , bicarb 20 with a BUN and creatinine of 17 and 4.3 respectively. Serum glucose of 839, elevated beta hydroxybutyrate to 4.3. pH was 7.27. Anion gap 14, suggestive of a mixed high anion gap and non-gap acidosis.
Patient admitted to ICU. Diuresed with IV Lasix. DKA treated with insulin drip transition to Insulin SC. Seen by handyperson. Agree with continued diuresing. Elevated troponin felt to be nonischemic. At present, spironolactone, SGLT 2
antagonist contraindicated. No HD per nephrology at this time.
Patient seen at beside. Did not sleep well last night. States had loose bowel movement. Has indwelling Mireles. Resting on oxygen via cannula. Reports to have not walk much in therapy due to weakness and instability. Denies chest pain, dizziness,
lightheadedness, nausea, vomiting, fever, chills, dysuria, abdominal pain. Patient reports to also have sleep apnea but does not use a CPAP machine at home. He does not feel that he needs it.
�
Past Medical History:� insulin-dependent diabetes, hypothyroid, CAD status post stenting, ischemic cardiomyopathy with CHF EF 35% as well as stage II diastolic dysfunction, JESSENIA, CKD stage III with baseline creatinine ranging anywhere from 2-3
Procedure History:�CAD status post stent,
Family History:� Mom-colon cancer, pretension, heart disease,
�
Social History:�
Functional Level Premorbidly:�Independent with all activities�
Functional Level Currently:�Bed mobility�mod assist, transfers�mod�max assist x 2
�
Tobacco:�Denies�
Alcohol:�Denies�
Drug use:�Denies�
�
Lives with:�Alone in basement apartment, son lives nearby
24-hour assistance available:�no
Number of floors:�1
# steps to enter:�7 down to enter from outside
# steps to second floor: none
Potential First floor set up:�Yes
Driving:�Yes
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
�
�
Allergies:�
Allergy/AdvReac Type Severity Reaction Status Date / Time
No Known Allergies Allergy Verified 05/29/25 03:12
�
Review of Systems:�
Constitutional: (x) abNormal _fatigued
Eye: (x) Normal _
Ear/Nose/Throat: (x) Normal _
Respiratory: (x) abNormal _on o2
Cardiovascular: (x) abNormal _CHF
Gastrointestinal: (x) Normal _
Genitourinary: (x)ab Normal _AKI, decreased urination, mireles
Musculoskeletal: (x) Normal _
Integumentary: (x) Normal _
Neurologic: (x) Normal _
Psychiatric: (x) Normal _
Endocrine: (x) Normal _
Hematologic/Lymphatic: (x) Normal _
Allergic/Immunologic: (x) Normal _
�
Medications:�
Active Current Visit Medication List
Category Date Time Status
Aspirin Low Dose EC [Aspir Low (Enteric Coated)] Med 05/29/25 08:00 Active
81 mg PO DAILY
Atorvastatin [Lipitor] Med 05/29/25 22:00 Active
40 mg PO HS
Carvedilol [Coreg] Med 05/29/25 08:00 Active
12.5 mg PO BID
Dextrose 50%-Water [Dextrose 50% Syringe] Med 05/29/25 22:50 Active
12.5 grams IV [id number] PRN
Flush (0.9% Sodium Chloride) [Flush (Nss)] Med 05/29/25 07:00 Active
See Dose Instructions IV PER PROTOCOL
Furosemide [Lasix] Med 05/29/25 10:00 Active
40 mg IV BID AT 0800,1600
Heparin Med 05/29/25 08:00 Active
5,000 units SC Q8
HydrALAZINE [Apresoline] Med 05/29/25 16:00 Active
50 mg PO TID
ISOSORBIDE MONOnitrate ER [Imdur (Extended Release)] Med 05/29/25 10:00 Active
30 mg PO DAILY
Insulin Aspart Corrective Low [Novolog Flexpen-Low Med 05/30/25 11:30 Active
Resistance]
See Protocol SC AC
Insulin Aspart Pen [Novolog Flexpen] Med 05/30/25 09:00 Active
4 units SC AC
Insulin Glargine Lantus [Lantus] 15 units Med 05/31/25 08:00 Active
Subcutaneous Insulin Syringe [Syringe-Insulin] 0 unit
SC DAILY
Levothyroxine [Synthroid] Med 05/29/25 08:00 Active
112 mcg PO DAILY@0600
�
Vitals:�
Temp Pulse Resp BP Pulse Ox
97.9 F 63 20 169/80 98
05/31/25 08:17 05/31/25 08:17 05/31/25 08:17 05/31/25 08:17 05/31/25 08:17
Height 5 ft 8 in
Actual Weight 67.84 kg
Body Mass Index (BMI) 22.7
�
Physical Exam:�
General Appearance/Observation: Well-developed, well-nourished individual in no apparent distress on oxygen via cannula.�
Pain/Comfort Assessment: Denies�
Mood/Affect: Appropriate�, sleepy
�
Integumentary/Operative Site:�
�� Pressure Ulcer Evaluation: absent over heels.�
��
�� Other Type of Wound: absent�
��
�
Eyes: Conjunctiva/Lids: normal���� Pupils: pupils equal round and reactive to light and Accommodation�
Ears/Nose/Throat: oral mucosa dry, throat clear-dry.������������ Lips/Teeth/Gums: lips dry
Neck: No muscle spasm or tenderness�
Cardiovascular: Heart: regular, murmur�
Pulses: dorsalis pedis 2+ bilaterally�
Respiratory: Respiratory Effort/Chest Expansion: normal������� Auscultation: Clear to auscultation bilaterally�
Gastrointestinal: abdomen not tender, no distension, normal abdominal bowel sounds
Genitourinary: Mireles�
Extremities:�Edema: Trace bilaterally�cyanosis: None�Trophic�changes: None
�
Neurology Exam:
Orientation: Alert, Oriented to self, Time, Place�
Memory: Intact for immediate medical concerns
Comprehension: Intact
Two step command: Intact
Naming: Intact
Cranial Nerves:
�� CNII:�Pupillary light reflex: Intact����Visual Field: Intact
�� CN III, IV, : Extraocular muscles: Intact�
�� CN V:�Facial Sensation�at�Forehead: Intact,�Maxilla: Intact,�Mandible: Intact
�� CN VII:�Facial movement: Symmetric
�� CN VIII:�Hearing: Normal
�� CN IX/X:�Speech & swallow: Normal,�Position of Uvula: Midline
�� CN XI:�Shoulder shrug: Symmetric
�� CN XII:�Tongue protrusion: Midline
Sensory:
�� Light touch: Intact in bilateral upper and lower extremities
��
Reflexes:
�� Biceps: 2+ bilaterally
�� Brachioradialis: 2+ bilaterally
�� Triceps: 2+ bilaterally
�� Patellar: 2+ bilaterally
�� Achilles: Absent bilaterally
�� Babinski: No response bilaterally
�� Clonus: None
�� [place]: Negative bilaterally�
Cerebellar: Dysmetria/Ataxia: None�
Musculoskeletal:
Motor: (Manual muscle scale 0-5)�
Muscle SA EF WE EE FF FA HF KE DF EHL PF
Right� 5 5 5 5 3+ 3+ 5 5 5
Left 5 5 5 5 3+ 3+ 4 5 4
�
Tone: Normal in all extremities�
Range of Motion: Passively within normal limits in all extremities�, diminished range of motion of left ankle
�
Lab Results:
Labs
WBC 4.1 10^3/uL (4.8-10.8) L 05/31/25 06:06
RBC 2.37 10^6/uL (4.70-6.10) L 05/31/25 06:06
Hgb 7.3 g/dL (13.0-18.0) L 05/31/25 06:06
Hct 22.5 % (39.0-52.0) L 05/31/25 06:06
MCV 94.9 fL (80.0-94.0) H 05/31/25 06:06
MCH 30.8 pg (27.0-31.0) 05/31/25 06:06
MCHC 32.4 g/dL (33.0-37.0) L 05/31/25 06:06
RDW 14.7 % (11.5-14.5) H 05/31/25 06:06
Plt Count 107 10^3/uL (130-400) L 05/31/25 06:06
MPV 11.6 fL (7.4-10.4) H 05/31/25 06:06
Abs Immat Gran (auto) 0.0 10^3/uL (0-0.05) 05/31/25 06:06
Absolute Neuts (auto) 2.9 10^3/uL (1.4-6.5) 05/31/25 06:06
Absolute Lymphs (auto) 0.5 10^3/uL (1.2-3.4) L 05/31/25 06:06
Absolute Monos (auto) 0.5 10^3/uL (0.1-0.6) 05/31/25 06:06
Absolute Eos (auto) 0.1 10^3/uL (0-0.7) 05/31/25 06:06
Absolute Basos (auto) 0.0 10^3/uL (0-0.2) 05/31/25 06:06
Immature Gran % 0.5 % (0-0.5) 05/31/25 06:06
Neutrophils % 71.5 % (42.2-75.2) 05/31/25 06:06
Lymphocytes % 13.1 % (20.5-51.1) L 05/31/25 06:06
Monocytes % 11.2 % (1.7-9.3) H 05/31/25 06:06
Eosinophils % 3.2 % (0-6) 05/31/25 06:06
Basophils % 0.5 % (0-2) 05/31/25 06:06
Nucleated RBC % 0 % (-) 05/31/25 06:06
pH 7.27 (7.35-7.45) L 05/29/25 04:08
pCO2 43 mmHg (35-48) 05/29/25 04:08
pO2 56 mmHg (83-108) L* 05/29/25 04:08
HCO3 19.7 mmol/L (21-28) L 05/29/25 04:08
Base Excess -6.7 mmol/L 05/29/25 04:08
ABG O2 Sat (Measured) 88.9 % (94-98) L 05/29/25 04:08
O2 Delivery Level 05/29/25 04:08
Sodium 133 mmol/L (135-145) L 05/31/25 06:06
Potassium 4.3 mmol/L (3.5-5.1) 05/31/25 06:06
Chloride 100 mmol/L (98-107) 05/31/25 06:06
Carbon Dioxide 29 mmol/L (22-30) 05/31/25 06:06
BUN 71 mg/dl (9-20) H 05/31/25 06:06
Creatinine 4.1 mg/dL (0.7-1.3) H* 05/31/25 06:06
Estimated Creat Clear 19 ml/min 05/31/25 06:06
eGFR 15.95 05/31/25 06:06
Glucose 273 mg/dl (70-99) H 05/31/25 06:06
Calcium 7.9 mg/dl (8.4-10.2) L 05/31/25 06:06
Phosphorus 5.0 mg/dl (2.5-4.5) H 05/29/25 08:17
Magnesium 2.3 mg/dl (1.6-2.3) 05/29/25 08:17
Total Bilirubin 0.5 mg/dl (0.2-1.3) 05/31/25 06:06
Direct Bilirubin 0.6 mg/dl (0.0-0.4) H 05/29/25 04:24
AST 24 U/L (17-59) 05/31/25 06:06
ALT 10 U/L (0-50) 05/31/25 06:06
Alkaline Phosphatase 105 U/L (38-126) 05/31/25 06:06
Creatine Kinase 292 U/L (55-170) H 05/29/25 03:27
Troponin I 0.042 ng/ml H* 05/30/25 03:44
Jkf-E-Tmigexddejz Pept > 66518 pg/ml 05/29/25 03:48
Total Protein 5.2 g/dl (6.3-8.2) L 05/31/25 06:06
Albumin 2.8 g/dl (3.5-5.0) L 05/31/25 06:06
TSH (Reflex) 4.04 uIU/ml (0.47-4.68) 05/29/25 04:24
Urine Color Yellow 05/29/25 09:33
Urine Clarity Clear (Clear) 05/29/25 09:33
Urine pH 5.0 (5.0-9.0) 05/29/25 09:33
Ur Specific [place] 1.015 (<1.030) 05/29/25 09:33
Urine Ketones 1+ (Negative) A 05/29/25 09:33
Urine Occult Blood Negative (Negative) 05/29/25 09:33
Urine Nitrite Negative (Negative) 05/29/25 09:33
Urine Bilirubin Negative (Negative) 05/29/25 09:33
Urine Urobilinogen Negative (Neg - 1+) 05/29/25 09:33
Ur Leukocyte Esterase Negative (Negative) 05/29/25 09:33
Urine RBC 0-2 /HPF (0-2) 05/29/25 09:33
Urine WBC 3-5 /HPF (0-5) 05/29/25 09:33
Ur Squamous Epith Cells 0-2 /LPF (Few) 05/29/25 09:33
Urine Bacteria Few (Negative) A 05/29/25 09:33
Urine Creatinine 45.200 mg/dl 05/29/25 09:33
Urine Sodium 27 mmol/L (30-90) L 05/29/25 09:33
Urine Glucose 4+ (Negative) A 05/29/25 09:33
Urine Albumin 3+ (Neg - Trace) A 05/29/25 09:33
B-Hydroxybutyrate Cancelled 05/29/25 03:28
POC Glucose 290 mg/dl (70-99) H 05/31/25 08:47
�
Diagnostic Results:�as per HPI
Transthoracic echo�
1. Left ventricular ejection fraction is normal with an ejection fraction of 52 % by Aguilera's biplane method of discs.
2. Global strain -20.2%.
3. Trivial pericardial effusion. Pleural effusion present.
4. Moderate concentric left ventricular hypertrophy.
Chest x-ray�05/29/2025
The heart is mildly enlarged. There is moderate distention of the pulmonary vasculature. There are increased peripheral vascular interstitial markings in the lungs. There is a moderate amount of perihilar ground-glass opacity in the right lower
lung. There is a dense left lower lobe airspace consolidation. There are horizontal bands of subsegmental atelectasis and scarring in the lingula. There is mild blunting of the left lateral costophrenic angle suggesting a small left pleural
effusion. There is no radiographic evidence for pneumothorax.
There is mild bilateral osteoarthritis of the acromioclavicular joints. There is an 8.3 mm sclerotic bone island in the left humeral head. There is a mild right convex curvature of the lower thoracic spine. There is mild multilevel discogenic
degenerative disease throughout the thoracic spine.
There is no radiographic evidence for pneumoperitoneum or abnormal bowel dilatation in the upper abdomen.
IMPRESSION:
1. Mild to moderate acute interstitial and alveolar cardiogenic pulmonary edema.
2. Large dense left lower lobe airspace consolidation. Diagnostic possibilities are (1) left lower lobe atelectasis or (2) left lower lobe pneumonia (if there are signs/symptoms of pulmonary infection).
3. Small left pleural effusion.
4. Mild cardiomegaly.
Kidney ultrasound�05/29/2025
RIGHT KIDNEY:
Size: 10.9 x 5 x 5.5 cm. Mild increased renal cortical echogenicity suggesting medical renal disease.
No shadowing calculus or hydronephrosis.
6 mm cortical cyst.
LEFT KIDNEY:
Size: 11.5 x 5.9 x 4.4 cm. Mild increased renal cortical echogenicity suggesting medical renal disease.
No shadowing calculus or hydronephrosis.
Medial lower pole exophytic simple cyst measuring 3.3 cm. There are a few additional subcentimeter cortical cysts.
Mireles catheter within the urinary bladder which is collapsed. Diffuse urinary bladder wall thickening.
Incidental free pelvic fluid. Nonspecific. Consider further evaluation/follow-up CT if indicated.
IMPRESSION:
No shadowing calculus or hydronephrosis, bilaterally.
Mild increased renal cortical echogenicity suggesting medical renal disease.
Renal cysts, as described.
Diffuse urinary bladder wall thickening.
Nonspecific free fluid in the pelvis. Consider further evaluation/follow-up CT if indicated.
Assessment:�60-year-old with PMH of ( insulin-dependent diabetes, hypothyroid, CAD status post stenting, ischemic cardiomyopathy with CHF EF 35% as well as stage II diastolic dysfunction, JESSENIA, CKD stage 4 with baseline creatinine ranging anywhere
from 2-3) presented to the emergency department with uncontrolled hyperglycemia and mild DKA and CHF on 05/29/2025 due to medication non compliance
�
Plan�
PM&R�PT/OT to increase independence with ADLs, improve balance, coordination, endurance, strength, mobility, community reintegration, decreased burden of care on others and family education.�
�
Debility: PT/OT
DKA: Appears secondary to noncompliance with insulin regimen. Improving. Continue current
HTN: Imdur, hydralazine, Lasix carvedilol, monitor closely�
HLD: Statin������
CAD: Coreg, aspirin, atorvastatin�. Abnormal troponin is likely nonischemic myocardial injury per cardiology�and at present, spironolactone, SGLT2 antagonist contraindicated.�������������
CHF: Decompensated. EF 35% %, diuresing with Lasix 40 mg IV twice a day, beta tiffany, monitor fluid status�. Repeat echo on 05/29/2025- ejection fraction of 52 %
DM II: Accu-Cheks, insulin sliding scale. Transitioned off insulin drip 05/29. Continue aspart 4 units SC AC, glargine 15 units daily he has a continuous glucose monitor. Farxiga on hold secondary to JAMAR. hemoglobin A1c 6.2%, 05/03/2025.may not be
reliable due to his chronic anemia.
Hypothyroidism: levothyroxine. TSH 4.0
Recurrent pleural effusions: presumably related to heart failure
Bilateral lower extremity edema: Consider TEDS as able. Increased fluid will cause more force requirement to move lower extremities which requires more strength and increases fatigue.
Chronic anemia: Likely related to CKD. Hemoglobin down to 7.3, possibly related to hemodilution. No evidence of bleeding. continue to monitor.�Repeat CBC prior to discharge and transfuse if needed.
Acute thrombocytopenia: 107 from 111.Unclear etiology. Monitor for now. Repeat CBC prior to discharge. If still trending down may need heme or GI consult prior to transfer.
CKD4: Nephrology consulted. Continue diuresing. CR stable 4.1. (Baseline appears to be around 2.8-3) Kidney ultrasound�okay. No acute HD needs currently weaning O2 as allowed
Psych: Psychology consult.� Monitor mood, adjust medications as needed.�
Skin: monitor for pressure sores/rashes/lesions.�
Pain: acetaminophen or oxycodone as needed.�
Bowel: Colace and Senna, PRN bisacodyl.�
Bladder: Mireles- Trial of Time void, PVRs, PRN straight cath.�
GI Prophylaxis: Pantoprazole�
DVT Prophylaxis: Heparin
Pulmonary: Incentive spirometry�
Safety: Continue to reinforce assistance with all transfers.�
Code Status:� Full code
Dispo�(date/plan/equipment needs): Home with family care.� Social history reviewed.�
�
Functional and Medical Goals:�Modified Independent with ADL�s, ambulation, transfers�
Discharge disposition: Patient with ambulatory dysfunction, and debility secondary to DKA, CHF secondary to medication noncompliance would benefit from acute inpatient rehabilitation for PT/OT to increase independence with ADLs, improve balance,
coordination, endurance, strength, mobility,
Summary recommendations:
Recurrent pleural effusions: presumably related to heart failure. Repeat chest xray prior to discharge
HTN: Imdur, hydralazine, Lasix carvedilol. Check orthostatic vitals- address prior to discharge
Chronic anemia: Likely related to CKD. Hemoglobin down 7.3 from 7.4 possibly related to hemodilution. Repeat CBC prior to discharge and transfuse if needed.
Acute thrombocytopenia: 107 from 111.Unclear etiology. Monitor for now. Repeat CBC prior to discharge. If still trending down and unclear source may need GI consult prior to transfer.
Bowel: Colace and Senna, PRN bisacodyl.�
Bladder: Mireles- Trial of Time void, PVRs, PRN straight cath.�
Thank you for allowing me to care for your patient. Please contact me with any questions or concerns.
Consultation
-
Date/Time Consultation Requested: 05/30/2025
Date/Time Consultation Performed: 05/31/2025
Requesting Provider: Juan Galo
Performing Provider: Dee Dee Galvan/Dr. Carson
Reason for Consultation: CHF exacerbation

Documented by User: Shane Carson MD 05/31/25 15:49
Consultation - Medical
-
Referring Provider:�Juan William
Chief Complaint:�CHF exacerbation
�
History of Present Illness:�60-year-old with PMH of ( insulin-dependent diabetes, hypothyroid, CAD status post stenting, ischemic cardiomyopathy with CHF EF 35% as well as stage II diastolic dysfunction, JESSENIA, CKD stage 4 with baseline creatinine
ranging anywhere from 2-3) presented to the emergency department with uncontrolled hyperglycemia and mild DKA on 05/29/2025 secondary to not taking his insulin. Reports not taking it for at least 2 days and probably more because he does not feel
like walking to his fridge. He also has not taken his torsemide for at least 2 days because he ran out 2 days ago and did not go to the pharmacy to pick it up. He reports compliance with his other medications. Is unaware of any acute weight gain
but does report increasing pedal edema over the last 2 days. Denies polyuria or polydipsia.
In the Emergency Department, he was hypothermic with temp of 34.4, blood pressure of 140/60 with a pulse rate of 50 and was sating 99% on room air. Hemoglobin was 8.1 which is similar to prior, platelets 116 also similar to prior no leukocytosis.
Sodium o 132, potassium 5.2 , bicarb 20 with a BUN and creatinine of 17 and 4.3 respectively. Serum glucose of 839, elevated beta hydroxybutyrate to 4.3. pH was 7.27. Anion gap 14, suggestive of a mixed high anion gap and non-gap acidosis.
Patient admitted to ICU. Diuresed with IV Lasix. DKA treated with insulin drip transition to Insulin SC. Seen by handyperson. Agree with continued diuresing. Elevated troponin felt to be nonischemic. At present, spironolactone, SGLT 2
antagonist contraindicated. No HD per nephrology at this time.
Patient seen at beside. Did not sleep well last night. States had loose bowel movement. Has indwelling Mireles. Resting on oxygen via cannula. Reports to have not walk much in therapy due to weakness and instability. Denies chest pain, dizziness,
lightheadedness, nausea, vomiting, fever, chills, dysuria, abdominal pain. Patient reports to also have sleep apnea but does not use a CPAP machine at home. He does not feel that he needs it.
�
Past Medical History:� insulin-dependent diabetes, hypothyroid, CAD status post stenting, ischemic cardiomyopathy with CHF EF 35% as well as stage II diastolic dysfunction, JESSENIA, CKD stage III with baseline creatinine ranging anywhere from 2-3
Procedure History:�CAD status post stent,
Family History:� Mom-colon cancer, pretension, heart disease,
�
Social History:�
Functional Level Premorbidly:�Independent with all activities�
Functional Level Currently:�Bed mobility�mod assist, transfers�mod�max assist x 2
�
Tobacco:�Denies�
Alcohol:�Denies�
Drug use:�Denies�
�
Lives with:�Alone in basement apartment, son lives nearby
24-hour assistance available:�no
Number of floors:�1
# steps to enter:�7 down to enter from outside
# steps to second floor: none
Potential First floor set up:�Yes
Driving:�Yes
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
�
�
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
Allergy/AdvReac Type Severity Reaction Status Date / Time
No Known Allergies Allergy Verified 05/29/25 03:12
�
Review of Systems:�
Constitutional: (x) abNormal _fatigued
Eye: (x) Normal _
Ear/Nose/Throat: (x) Normal _
Respiratory: (x) abNormal _on o2
Cardiovascular: (x) abNormal _CHF
Gastrointestinal: (x) Normal _
Genitourinary: (x)ab Normal _AKI, decreased urination, mireles
Musculoskeletal: (x) Normal _
Integumentary: (x) Normal _
Neurologic: (x) Normal _
Psychiatric: (x) Normal _
Endocrine: (x) Normal _
Hematologic/Lymphatic: (x) Normal _
Allergic/Immunologic: (x) Normal _
�
Medications:�
Active Current Visit Medication List
Category Date Time Status
Aspirin Low Dose EC [Aspir Low (Enteric Coated)] Med 05/29/25 08:00 Active
81 mg PO DAILY
Atorvastatin [Lipitor] Med 05/29/25 22:00 Active
40 mg PO HS
Carvedilol [Coreg] Med 05/29/25 08:00 Active
12.5 mg PO BID
Dextrose 50%-Water [Dextrose 50% Syringe] Med 05/29/25 22:50 Active
12.5 grams IV [id number] PRN
Flush (0.9% Sodium Chloride) [Flush (Nss)] Med 05/29/25 07:00 Active
See Dose Instructions IV PER PROTOCOL
Furosemide [Lasix] Med 05/29/25 10:00 Active
40 mg IV BID AT 0800,1600
Heparin Med 05/29/25 08:00 Active
5,000 units SC Q8
HydrALAZINE [Apresoline] Med 05/29/25 16:00 Active
50 mg PO TID
ISOSORBIDE MONOnitrate ER [Imdur (Extended Release)] Med 05/29/25 10:00 Active
30 mg PO DAILY
Insulin Aspart Corrective Low [Novolog Flexpen-Low Med 05/30/25 11:30 Active
Resistance]
See Protocol SC AC
Insulin Aspart Pen [Novolog Flexpen] Med 05/30/25 09:00 Active
4 units SC AC
Insulin Glargine Lantus [Lantus] 15 units Med 05/31/25 08:00 Active
Subcutaneous Insulin Syringe [Syringe-Insulin] 0 unit
SC DAILY
Levothyroxine [Synthroid] Med 05/29/25 08:00 Active
112 mcg PO DAILY@0600
�
Vitals:�
Temp Pulse Resp BP Pulse Ox
97.9 F 63 20 169/80 98
05/31/25 08:17 05/31/25 08:17 05/31/25 08:17 05/31/25 08:17 05/31/25 08:17
Height 5 ft 8 in
Actual Weight 67.84 kg
Body Mass Index (BMI) 22.7
�
Physical Exam:�
General Appearance/Observation: Well-developed, well-nourished individual in no apparent distress on oxygen via cannula.�
Pain/Comfort Assessment: Denies�
Mood/Affect: Appropriate�, sleepy
�
Integumentary/Operative Site:�
�� Pressure Ulcer Evaluation: absent over heels.�
��
�
Eyes: Conjunctiva/Lids: normal����right eye slightly larger than left pupils: pupils equal round and reactive to light and Accommodation�
Ears/Nose/Throat: oral mucosa dry, throat clear-dry.������������ Lips/Teeth/Gums: lips dry
Cardiovascular: Heart: regular, murmur�
Pulses: dorsalis pedis 2+ bilaterally�
Respiratory: Respiratory Effort/Chest Expansion: normal������� Auscultation: Clear to auscultation bilaterally�
Gastrointestinal: abdomen not tender, no distension, normal abdominal bowel sounds
Genitourinary: Mireles�
Extremities:�Edema: Trace bilaterally�cyanosis: None�Trophic�changes: None
�
Neurology Exam:
Orientation: Alert, Oriented to self, Time, Place�
Memory: Intact for immediate medical concerns
Comprehension: Intact
Two step command: Intact
Naming: Intact
Cranial Nerves:
�� CNII:�Pupillary light reflex: Intact����Visual Field: Intact
�� CN III, IV, : Extraocular muscles: Intact�
�� CN V:�Facial Sensation�at�Forehead: Intact,�Maxilla: Intact,�Mandible: Intact
�� CN VII:�Facial movement: Symmetric
�� CN VIII:�Hearing: Normal
�� CN IX/X:�Speech & swallow: Normal,�Position of Uvula: Midline
�� CN XI:�Shoulder shrug: Symmetric
�� CN XII:�Tongue protrusion: Midline
Sensory:
�� Light touch: Intact in bilateral upper and lower extremities
��
Reflexes:
�� Biceps: 2+ bilaterally
�� Brachioradialis: 2+ bilaterally
�� Triceps: 2+ bilaterally
�� Patellar: 0 bilaterally
�� Achilles: 0 bilaterally
�� Babinski: No response bilaterally
�� Clonus: None
�� [place]: Negative bilaterally�
Cerebellar: Dysmetria/Ataxia: None�
Musculoskeletal:Motor: (Manual muscle scale 0-5)�
Muscle SA EF WE EE FF FA HF KE DF EHL PF
Right� 5 5 5 5 3+ 3+ 5 5 5
Left 5 5 5 5 3+ 3+ 4 5 4
�
Tone: Normal in all extremities�
Range of Motion: Passively within normal limits in all extremities�, diminished range of motion of left ankle
�
Lab Results:
Labs
WBC 4.1 10^3/uL (4.8-10.8) L 10/01/25 06:06
RBC 2.37 10^6/uL (4.70-6.10) L 05/31/25 06:06
Hgb 7.3 g/dL (13.0-18.0) L 05/31/25 06:06
Hct 22.5 % (39.0-52.0) L 05/31/25 06:06
MCV 94.9 fL (80.0-94.0) H 05/31/25 06:06
MCH 30.8 pg (27.0-31.0) 05/31/25 06:06
MCHC 32.4 g/dL (33.0-37.0) L 05/31/25 06:06
RDW 14.7 % (11.5-14.5) H 05/31/25 06:06
Plt Count 107 10^3/uL (130-400) L 05/31/25 06:06
MPV 11.6 fL (7.4-10.4) H 05/31/25 06:06
Abs Immat Gran (auto) 0.0 10^3/uL (0-0.05) 05/31/25 06:06
Absolute Neuts (auto) 2.9 10^3/uL (1.4-6.5) 05/31/25 06:06
Absolute Lymphs (auto) 0.5 10^3/uL (1.2-3.4) L 05/31/25 06:06
Absolute Monos (auto) 0.5 10^3/uL (0.1-0.6) 05/31/25 06:06
Absolute Eos (auto) 0.1 10^3/uL (0-0.7) 05/31/25 06:06
Absolute Basos (auto) 0.0 10^3/uL (0-0.2) 05/31/25 06:06
Immature Gran % 0.5 % (0-0.5) 05/31/25 06:06
Neutrophils % 71.5 % (42.2-75.2) 05/31/25 06:06
Lymphocytes % 13.1 % (20.5-51.1) L 05/31/25 06:06
Monocytes % 11.2 % (1.7-9.3) H 05/31/25 06:06
Eosinophils % 3.2 % (0-6) 05/31/25 06:06
Basophils % 0.5 % (0-2) 05/31/25 06:06
Nucleated RBC % 0 % (-) 05/31/25 06:06
pH 7.27 (7.35-7.45) L 05/29/25 04:08
pCO2 43 mmHg (35-48) 05/29/25 04:08
pO2 56 mmHg (83-108) L* 05/29/25 04:08
HCO3 19.7 mmol/L (21-28) L 05/29/25 04:08
Base Excess -6.7 mmol/L 05/29/25 04:08
ABG O2 Sat (Measured) 88.9 % (94-98) L 05/29/25 04:08
O2 Delivery Level 05/29/25 04:08
Sodium 133 mmol/L (135-145) L 05/31/25 06:06
Potassium 4.3 mmol/L (3.5-5.1) 05/31/25 06:06
Chloride 100 mmol/L (98-107) 05/31/25 06:06
Carbon Dioxide 29 mmol/L (22-30) 05/31/25 06:06
BUN 71 mg/dl (9-20) H 05/31/25 06:06
Creatinine 4.1 mg/dL (0.7-1.3) H* 05/31/25 06:06
Estimated Creat Clear 19 ml/min 05/31/25 06:06
eGFR 15.95 05/31/25 06:06
Glucose 273 mg/dl (70-99) H 05/31/25 06:06
Calcium 7.9 mg/dl (8.4-10.2) L 05/31/25 06:06
Phosphorus 5.0 mg/dl (2.5-4.5) H 05/29/25 08:17
Magnesium 2.3 mg/dl (1.6-2.3) 05/29/25 08:17
Total Bilirubin 0.5 mg/dl (0.2-1.3) 05/31/25 06:06
Direct Bilirubin 0.6 mg/dl (0.0-0.4) H 05/29/25 04:24
AST 24 U/L (17-59) 05/31/25 06:06
ALT 10 U/L (0-50) 05/31/25 06:06
Alkaline Phosphatase 105 U/L (38-126) 05/31/25 06:06
Creatine Kinase 292 U/L (55-170) H 05/29/25 03:27
Troponin I 0.042 ng/ml H* 05/30/25 03:44
Dnr-T-Fsrrmwimzqa Pept > 26519 pg/ml 05/29/25 03:48
Total Protein 5.2 g/dl (6.3-8.2) L 05/31/25 06:06
Albumin 2.8 g/dl (3.5-5.0) L 05/31/25 06:06
TSH (Reflex) 4.04 uIU/ml (0.47-4.68) 05/29/25 04:24
Urine Color Yellow 05/29/25 09:33
Urine Clarity Clear (Clear) 05/29/25 09:33
Urine pH 5.0 (5.0-9.0) 05/29/25 09:33
Ur Specific [place] 1.015 (<1.030) 05/29/25 09:33
Urine Ketones 1+ (Negative) A 05/29/25 09:33
Urine Occult Blood Negative (Negative) 05/29/25 09:33
Urine Nitrite Negative (Negative) 05/29/25 09:33
Urine Bilirubin Negative (Negative) 05/29/25 09:33
Urine Urobilinogen Negative (Neg - 1+) 05/29/25 09:33
Ur Leukocyte Esterase Negative (Negative) 05/29/25 09:33
Urine RBC 0-2 /HPF (0-2) 05/29/25 09:33
Urine WBC 3-5 /HPF (0-5) 05/29/25 09:33
Ur Squamous Epith Cells 0-2 /LPF (Few) 05/29/25 09:33
Urine Bacteria Few (Negative) A 05/29/25 09:33
Urine Creatinine 45.200 mg/dl 05/29/25 09:33
Urine Sodium 27 mmol/L (30-90) L 05/29/25 09:33
Urine Glucose 4+ (Negative) A 05/29/25 09:33
Urine Albumin 3+ (Neg - Trace) A 05/29/25 09:33
B-Hydroxybutyrate Cancelled 05/29/25 03:28
POC Glucose 290 mg/dl (70-99) H 05/31/25 08:47
�
Diagnostic Results:�as per HPI
Transthoracic echo�
1. Left ventricular ejection fraction is normal with an ejection fraction of 52 % by Aguilera's biplane method of discs.
2. Global strain -20.2%.
3. Trivial pericardial effusion. Pleural effusion present.
4. Moderate concentric left ventricular hypertrophy.
Chest x-ray�05/29/2025
The heart is mildly enlarged. There is moderate distention of the pulmonary vasculature. There are increased peripheral vascular interstitial markings in the lungs. There is a moderate amount of perihilar ground-glass opacity in the right lower
lung. There is a dense left lower lobe airspace consolidation. There are horizontal bands of subsegmental atelectasis and scarring in the lingula. There is mild blunting of the left lateral costophrenic angle suggesting a small left pleural
effusion. There is no radiographic evidence for pneumothorax.
There is mild bilateral osteoarthritis of the acromioclavicular joints. There is an 8.3 mm sclerotic bone island in the left humeral head. There is a mild right convex curvature of the lower thoracic spine. There is mild multilevel discogenic
degenerative disease throughout the thoracic spine.
There is no radiographic evidence for pneumoperitoneum or abnormal bowel dilatation in the upper abdomen.
IMPRESSION:
1. Mild to moderate acute interstitial and alveolar cardiogenic pulmonary edema.
2. Large dense left lower lobe airspace consolidation. Diagnostic possibilities are (1) left lower lobe atelectasis or (2) left lower lobe pneumonia (if there are signs/symptoms of pulmonary infection).
3. Small left pleural effusion.
4. Mild cardiomegaly.
Kidney ultrasound�05/29/2025
RIGHT KIDNEY:
Size: 10.9 x 5 x 5.5 cm. Mild increased renal cortical echogenicity suggesting medical renal disease.
No shadowing calculus or hydronephrosis.
6 mm cortical cyst.
LEFT KIDNEY:
Size: 11.5 x 5.9 x 4.4 cm. Mild increased renal cortical echogenicity suggesting medical renal disease.
No shadowing calculus or hydronephrosis.
Medial lower pole exophytic simple cyst measuring 3.3 cm. There are a few additional subcentimeter cortical cysts.
Mireles catheter within the urinary bladder which is collapsed. Diffuse urinary bladder wall thickening.
Incidental free pelvic fluid. Nonspecific. Consider further evaluation/follow-up CT if indicated.
IMPRESSION:
No shadowing calculus or hydronephrosis, bilaterally.
Mild increased renal cortical echogenicity suggesting medical renal disease.
Renal cysts, as described.
Diffuse urinary bladder wall thickening.
Nonspecific free fluid in the pelvis. Consider further evaluation/follow-up CT if indicated.
Assessment:�60-year-old with PMH of ( insulin-dependent diabetes, hypothyroid, CAD status post stenting, ischemic cardiomyopathy with CHF EF 35% as well as stage II diastolic dysfunction, JESSENIA, CKD stage 4 with baseline creatinine ranging anywhere
from 2-3) presented to the emergency department with uncontrolled hyperglycemia and mild DKA and CHF on 05/29/2025 due to medication non compliance
�
Plan�
PM&R�PT/OT to increase independence with ADLs, improve balance, coordination, endurance, strength, mobility, community reintegration, decreased burden of care on others and family education.�
�
Debility: PT/OT
DKA: Appears secondary to noncompliance with insulin regimen. Improving. Continue current
HTN: Imdur, hydralazine, Lasix carvedilol, monitor closely�
HLD: Statin������
CAD: Coreg, aspirin, atorvastatin�. Abnormal troponin is likely nonischemic myocardial injury per cardiology�and at present, spironolactone, SGLT2 antagonist contraindicated.�������������
CHF: Decompensated. EF 35% %, diuresing with Lasix 40 mg IV twice a day, beta tiffany, monitor fluid status�. Repeat echo on 05/29/2025- ejection fraction of 52 %
DM II: Accu-Cheks, insulin sliding scale. Transitioned off insulin drip 05/29. Continue aspart 4 units SC AC, glargine 15 units daily he has a continuous glucose monitor. Farxiga on hold secondary to JAMAR. hemoglobin A1c 6.2%, 05/03/2025.may not be
reliable due to his chronic anemia.
-Diabetic retinopathy: Gets injections
-Diabetic Nephropathy: Monitor
-Diabetic neuropathy: Gabapentin as needed. Will need renal dosing.
Hypothyroidism: levothyroxine. TSH 4.0
Recurrent pleural effusions: presumably related to heart failure
Bilateral lower extremity edema: Consider TEDS as able. Increased fluid will cause more force requirement to move lower extremities which requires more strength and increases fatigue. Monitor closely with CHF history.
Chronic anemia: Likely related to CKD. Hemoglobin down to 7.3, possibly related to hemodilution. No evidence of bleeding. continue to monitor.�Repeat CBC prior to discharge and transfuse if needed.
Acute thrombocytopenia: 107 from 111.Unclear etiology. Monitor for now. Repeat CBC prior to discharge. If still trending down may need heme consult prior to transfer.
CKD4: Nephrology consulted. Continue diuresing. CR stable 4.1. (Baseline appears to be around 2.8-3) Kidney ultrasound�okay. No acute HD needs currently weaning O2 as allowed
Psych: Monitor mood, medications as needed.�
Skin: monitor for pressure sores/rashes/lesions.�
Pain: acetaminophen as needed.�
Bowel: Notes moving his bowels well without medication. PRN bisacodyl.�
Bladder: Mireles- Trial of Time void, PVRs, PRN straight cath.�
DVT Prophylaxis: Mechanical and heparin
Pulmonary: Incentive spirometry�
Safety: Continue to reinforce assistance with all transfers.�
Code Status:� Full code
Dispo�(date/plan/equipment needs): Home with family care.� Social history reviewed.�
Functional and Medical Goals:�Modified Independent with ADL�s, ambulation, transfers�
Discharge disposition: Patient with ambulatory dysfunction, and debility secondary to DKA, CHF secondary to medication noncompliance would benefit from acute inpatient rehabilitation for PT/OT to increase independence with ADLs, improve balance,
coordination, endurance, strength, mobility
Attending Statement:
I saw and examined the patient today. Reviewed care plan with patient, therapy, nursing, and physician technical services assistant. I agree with the above subjective and physical exam, and plan as documented by ALLIE Galvan with adjustments made as necessary.
Summary recommendations:
Recurrent pleural effusions: presumably related to heart failure. Repeat chest xray prior to discharge
HTN: Imdur, hydralazine, Lasix carvedilol. Check orthostatic vitals- address prior to discharge
Chronic anemia: Likely related to CKD. Hemoglobin down 7.3 from 7.4 possibly related to hemodilution. Repeat CBC prior to discharge and transfuse if needed.
Acute thrombocytopenia: 107 from 111.Unclear etiology. Monitor for now. Repeat CBC prior to discharge. If still trending down and unclear source may need hematology consult prior to transfer.
Bladder: Mireles- Trial of Time void, PVRs, PRN straight cath.�
Thank you for allowing me to care for your patient. Please contact me with any questions or concerns.
[2025-05-31 08:48] LABS: Glucose - Point of Care 290 mg/dl (70-99)
[2025-05-31] MEDS: NOVOLOG FLEXPEN SC (09:15)
[2025-05-31] MEDS: ASPIR LOW (ENTERIC COATED) 81 MG PO (09:21)
[2025-05-31] MEDS: IMDUR (EXTENDED RELEASE) 30 MG PO (09:21)
[2025-05-31] MEDS: HEPARIN 5000 UNITS SC ×2 (09:22→16:23)
[2025-05-31] MEDS: LASIX 40 MG IV ×2 (09:23→16:24)
[2025-05-31] MEDS: LANTUS 0.15 UNITS SC (09:23)
[2025-05-31] MEDS: NOVOLOG FLEXPEN-LOW RESISTANCE 3 UNITS SC (09:24)
[2025-05-31] MEDS: NOVOLOG FLEXPEN 6 UNITS SC ×3 (09:24→17:59)
[2025-05-31] MEDS: COREG PO ×2 (09:36→19:47)
--- NOTE | 2025-05-31 09:40 | W.PN.HOSP.TC ---
Today's Communication/Plan
-
Abdominal ultrasound
Assessment / Plan
Assessment / Plan
Gen-AAOx3, NAD
HEENT-NC, AT, anicteric, clear oral mm
Neck-supple
CV-reg, no M, +S1/S2
Lungs-clear B/L
Abd-soft, NT, ND
Ext-improved bilateral lower extremity edema
Musculoskeletal-no cyanosis, clubbing
Skin-warm and dry
Neuro-grossly non-focal
Psych-calm, cooperative
DM2 with hyperglycemia -glucoses overall improved, acidosis resolved.
Transitioned off insulin drip 05/29, continue basal/bolus insulin. Diabetes RECREATION ACTIVITIES COORDINATOR following. He has a continuous glucose monitor.
Farxiga on hold for JAMAR.
Patient admits to noncompliance with his home diabetes regimen. He cannot tell me why he decided not to take his meds. He did have access to all his meds, with the exception of torsemide which he ran out of.
He denies feeling depressed, denies suicidal ideation. Denies history of mental illness. He understands that DKA and hyperglycemia can potentially cause .
Recent hemoglobin A1c 6.2%, 05/03/2025. This may not be reliable due to his chronic anemia.
Dr. Cordero, endocrinology, monitors his diabetes.
JAMAR on CKD 4 -likely due to intravascular volume depletion due to osmotic diuresis due to significant hyperglycemia. Creatinine of 4.3 on presentation, baseline creatinine usually 2.8. Creatinine plateaued at 4.1 so far.
Renal ultrasound with mild increased renal echogenicity suggesting medical renal disease, no calculus or hydronephrosis.
Acute on chronic heart failure with preserved EF -weight is up significantly compared to October 2024. In October his weight was 61 kg, currently 69 kg. Not compliant with torsemide, states he ran out several days prior to admission. Weight down 2 kg
so far. Continue IV Lasix. Did not receive evening dose yesterday.
BNP greater than 27,000.
Admission chest x-ray with mild to moderate pulmonary edema. Left lower lobe consolidation likely due to atelectasis, clinically doubt pneumonia. Small left pleural effusion.
Echocardiogram shows improvement of LVEF to 52%, previously 35% in February.
Essential hypertension -stable.
Hypothyroidism -TSH 4.0, continue levothyroxine.
Hyperlipidemia -atorvastatin.
Chronic anemia -likely related to CKD. Hemoglobin down slightly to 7.4, possibly related to hemodilution. No evidence of bleeding. Monitor for now.
Acute thrombocytopenia/pancytopenia -unclear etiology. Will check ultrasound of liver and spleen. No known history of liver disease. Patient does not see hematology at [place].
Full code
Dispo -anticipate discharge to acute rehab when medically stable.
Anticipated Discharge: Within 24 hours
Subjective/Interval History
-
Date of Service: May 31, 2025
Patient seen and examined, no complaints.
Objective Data
-
Labs:
Laboratory Results
05/31/25
06:06
WBC 4.1 L
Hgb 7.3 L
Hct 22.5 L
Plt Count 107 L
Sodium 133 L
Potassium 4.3
Chloride 100
Carbon Dioxide 29
BUN 71 H
Creatinine 4.1 H*
Glucose 273 H
Calcium 7.9 L
Total Bilirubin 0.5
AST 24
ALT 10
Alkaline Phosphatase 105
Vital Signs:
Vital Signs
Temp Pulse Resp BP Pulse Ox
97.9 F 64 20 168/80 98
05/31/25 08:17 05/31/25 09:21 05/31/25 08:17 05/31/25 09:21 05/31/25 08:17
I&O
05/30/25 05/31/25 06/01/25
06:59 06:59 06:59
Intake Total 145.7 / 145.7 1200 / 1200
Output Total 1117 / 1117 2625 / 2625 550 / 550
Balance -971.3 / -971.3 -1425 / -1425 -550 / -550
Review of Systems
-
History Source: Patient
All other systems: Reviewed and negative
--- NOTE | 2025-05-31 11:04 | CM ---
PT OT indicate acute rehab .
Spoke with [facility] rep Zita [phone] she will review his chart.
PMR eval done.
Pt will need auth ath [employer]
Oxygen weaned 1 liter NC POx 98%.
PLAN Awaiting [facility] acute rehab determination
[2025-05-31 12:43] LABS: Glucose - Point of Care 168 mg/dl (70-99)
--- NOTE | 2025-05-31 12:46 | W.PN.CARDCBS ---
Addendum entered and electronically signed by Jorge A Snyder MD 05/31/25 17:25:
I saw and examined the patient.
The Body And Frame Technician's note was reviewed and I agree with the note.
Comment: Briefly, 60-year-old man past medical history of heart failure with recovered ejection fraction, CKD and type 2 diabetes presenting in DKA and diagnosed with acute heart failure
With IV diuresis his weight is coming down however he is still requiring supplemental oxygen
Would continue twice daily IV Lasix and wean O2 as able
Follow renal function, electrolytes and daily standing weights
GDMT for heart failure is limited by renal function. Baseline creatinine previously around 3.5 and is slightly higher during this admission. Continue home Coreg, hydralazine and Imdur.
Troponin is borderline elevated
Suspect nonischemic myocardial injury troponin elevation in the setting of acute heart failure and CKD
Would continue home aspirin, atorvastatin and beta-tiffany for medical management of known CAD
Rest per Ondina Eaton
Original Note:
Today's Communication / Plan
-
Ongoing diuresis
Impression / Plan
-
PCP: Ajay Arteaga PA-C
Cardiology: Dr. Sanchez, previously Dr. Júnior Mayo at [facility]
Impression:
Admitted with DKA 05/29/2025
DM 2 and diabetic ketoacidosis
Acute on chronic HFrEF
Medical noncompliance
JAMAR on CKD stage IV
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
Recurrent pleural effusions, presumably related to heart failure
Hypertension
Hyperlipidemia
Hypothyroidism
Type 2 diabetes
Chronic anemia
Obstructive sleep apnea
Orthostatic hypotension
Echo 05/29/25, EF 52%, moderate LVH, Mild MR
Plan:
-He presents with acute on chronic HFrEF in the setting of diabetic ketoacidosis felt to be related to noncompliance.
-Weight is down at least 3 lbs with Lasix 40 mg IV BID. Patient was supposed to be taking torsemide 30 mg daily prior to admission, but there is suspicion that he was noncompliant
-Cre as high as 4.3, but improved to 4.1 by my review of the labs on 05/31/2025. Nephrology is following and recommends ongoing Lasix IV and there are currently no acute needs for HD
-EF preserved to 52% by echo 05/29/2025
-Outpatient dose of Coreg 12.5 mg BID has been continued
-Patient was not chronically on SILKE/ARB/ARNI/aldosterone antagonist due to CKD 4 prior to admission.
-Outpatient dose of hydralazine has been increased to 50 mg TID
-Patient is new to Imdur ER 30 mg daily
-SGLT2 inhibitor is contraindicated with JAMAR on CKD 4 at this time
-Troponin is high 0.042 on 05/30/2025 AM, will check another level on the morning of 05/31/2025. EF was preserved to 52% without WMA on echo report that was reviewed by me and ECG personally reviewed by me on 05/31/2025 from 05/29/2025 showed sinus
bradycardia without acute ST changes
-Outpatient dose of aspirin 81 mg daily has been continued
-Medication noncompliance is related in part to financial hardship and that patient was in between jobs, but he reports he is now on disability and that he has insurance.
Progress Note - Broadcast News Producer
Subjective
Date of Service: May 31, 2025
Overall feels better
Objective
Labs:
05/31/25 06:06
05/31/25 06:06
Labs
Hgb 7.3 g/dL (13.0-18.0) L 05/31/25 06:06
Hct 22.5 % (39.0-52.0) L 05/31/25 06:06
Plt Count 107 10^3/uL (130-400) L 05/31/25 06:06
Sodium 133 mmol/L (135-145) L 05/31/25 06:06
Potassium 4.3 mmol/L (3.5-5.1) 05/31/25 06:06
BUN 71 mg/dl (9-20) H 05/31/25 06:06
Creatinine 4.1 mg/dL (0.7-1.3) H* 05/31/25 06:06
Glucose 273 mg/dl (70-99) H 05/31/25 06:06
Troponins
05/29/25 05/30/25
09:52 03:44
Troponin I 0.035 H* 0.042 H*
Vital Signs and I&O:
Vital Signs
Temp Pulse Resp BP Pulse Ox
97.9 F 64 20 168/80 98
05/31/25 08:17 05/31/25 09:21 05/31/25 08:17 05/31/25 09:21 05/31/25 08:17
Vital Signs
Temp Pulse Resp BP Pulse Ox
97.9 F 64 20 168/80 98
05/31/25 08:17 05/31/25 09:21 05/31/25 08:17 05/31/25 09:21 05/31/25 08:17
Intake & Output
05/29/25 05/30/25 05/31/25 06/01/25
06:59 06:59 06:59 06:59
Intake Total 2059. 145.7 / 145.7 1200 / 1200
Output Total 1117 / 1117 2625 / 2625 550 / 550
Balance 2059.7 -971.3 / -971.3 -1425 / -1425 -550 / -550
Physical Exam
Physical Exam
GEN: AAOx3
LUNGS: 1 L NC
CV: SR on tele
[2025-05-31] MEDS: NOVOLOG FLEXPEN-LOW RESISTANCE 1 UNITS SC ×2 (13:37→17:58)
--- NOTE | 2025-05-31 14:30 | W.PN.NEPH.PH ---
Today's Communication / Plan
-
Maintain IV Lasix
Enact fluid restriction for hyponatremia
Follow BMP
Assessment/Plan
-
Assessment
JAMAR
CKD 4
Diabetes mellitus type 2
Hypertension
Edema
Heart failure reduced ejection fraction 35%
To thrive
Hyponatremia
Hyperkalemia
Metabolic acidosis
nephrotic range proteinuria from DKD
Plan
continue IV lasix
follow BMP, creatinine up to 4.1
Hyponatremia evolving sodium down to 133
US renal ok
no acute HD needs currently
wean O2 as allowed
-
-
Date of Service: May 31, 2025
CC / HPI / ROS
-
Chief Complaint:
JAMAR
History of Present Illness:
JAMAR/Cr stable 4.1
BP high
remains on supplemental O2
diuresing with lasix for decompensated HF
Review of Systems:
no CP/SOB
Labs
-
Labs:
WBC 4.1 10^3/uL (4.8-10.8) L 05/31/25 06:06
RBC 2.37 10^6/uL (4.70-6.10) L 05/31/25 06:06
Hgb 7.3 g/dL (13.0-18.0) L 05/31/25 06:06
Hct 22.5 % (39.0-52.0) L 05/31/25 06:06
Plt Count 107 10^3/uL (130-400) L 05/31/25 06:06
Sodium 133 mmol/L (135-145) L 05/31/25 06:06
Potassium 4.3 mmol/L (3.5-5.1) 05/31/25 06:06
Chloride 100 mmol/L (98-107) 05/31/25 06:06
Carbon Dioxide 29 mmol/L (22-30) 05/31/25 06:06
BUN 71 mg/dl (9-20) H 05/31/25 06:06
Creatinine 4.1 mg/dL (0.7-1.3) H* 05/31/25 06:06
eGFR 15.95 05/31/25 06:06
Glucose 273 mg/dl (70-99) H 05/31/25 06:06
Calcium 7.9 mg/dl (8.4-10.2) L 05/31/25 06:06
Phosphorus 5.0 mg/dl (2.5-4.5) H 05/29/25 08:17
Qya-P-Uugqerwagxi Pept > 07944 pg/ml 05/29/25 03:48
Albumin 2.8 g/dl (3.5-5.0) L 05/31/25 06:06
Physical Exam
-
Vital Signs:
Vital Signs
Temp Pulse Resp BP Pulse Ox
97.2 F 55 12 162/70 97
05/31/25 11:00 05/31/25 11:00 05/31/25 11:00 05/31/25 11:00 05/31/25 11:00
Cardiovascular:: Regular rate and rhythm
Respiratory:: Bilateral: Coarse
Lung Excursion:: Normal
Abdomen:: Nontender and Soft
Bowel Sounds:: Normal
Extremity Edema:: +1: Bilateral:
Ratliff Catheter: No
[2025-05-31 16:23] LABS: Glucose - Point of Care 177 mg/dl (70-99)
[2025-05-31] MEDS: LIPITOR 40 MG PO (19:49)
[2025-05-31 21:25] LABS: Glucose - Point of Care 135 mg/dl (70-99)
[2025-06-01] VITALS (8 sets, daily range): BP systolic 161–182; BP diastolic 67–94; BMI 22.1
[2025-06-01] MEDS: APRESOLINE 10 MG IV (00:32)
[2025-06-01] MEDS: HEPARIN 5000 UNITS SC ×4 (00:32→22:13)
[2025-06-01] MEDS: SYNTHROID 112 MCG PO (06:05)
[2025-06-01 06:56] LABS: Hematocrit 25.7 % (39.0-52.0); Hemoglobin 8.4 g/dL (13.0-18.0); Mean Corp Hgb Conc. 32.7 g/dL (33.0-37.0); Mean Corpuscular Volume 95.2 fL (80.0-94.0); Nucleated Red Blood Cells % 0 % (-); Platelet Count 116 10^3/uL (130-400); Red Cell Dist. Width 15.1 % (11.5-14.5)
[2025-06-01 07:18] LABS: ALT (SGPT) 11 U/L (0-50); AST (SGOT) 27 U/L (17-59); Albumin 3.0 g/dl (3.5-5.0); Alkaline Phosphatase 104 U/L (38-126); Blood Urea Nitrogen 74 mg/dl (9-20); Calcium 8.3 mg/dl (8.4-10.2); Carbon Dioxide 30 mmol/L (22-30); Chloride 98 mmol/L (98-107); Estimated Creatinine Clearance 19 ml/min; Glucose 170 mg/dl (70-99); Potassium 4.3 mmol/L (3.5-5.1); Sodium 134 mmol/L (135-145); Total Protein 5.6 g/dl (6.3-8.2); eGFR 16.43
--- NOTE | 2025-06-01 07:40 | PN.DE.MGMTRT ---
Insulin Management
- -
06/01/2025: Diabetes Management Consult Follow up
Patient is 60-year-old male who was brought to the ED by ambulance due to difficulty getting up after sliding to the floor.
PMH: CAD s/p stenting, ICM with CHF EF 35% Diastolic dysfunction, JESSENIA, CKD stage III baseline Cr 2-3, Hypothyroid and IDDM.
Reports 2 days of elevated blood glucose readings, decided not to take his insulin despite the elevations because he had trouble walking to the fridge due to swelling in his feet. Glucose on admission 839, elevated beta hydroxybutyrate to 4.3. pH
was 7.27. Anion gap 14, suggestive of a mixed high anion gap and non-gap acidosis. He was started on HHS-DKA protocol. Prior to admission was taking Farxiga 10 mg daily, lantus 15 units daily with humalog AC. A1C on admission 6.2%. States he has
been diabetic for over 10 years.
Sees [facility]ocrine associates Dr. Cordero, and uses CGM- Nirmal 3.
Pt is awake, alert, resting in bed in NAD, offers no complaints, flat affect, able to discuss diabetes care plan. Patient has very poor insight as to importance of taking insulin.
Transitioned from insulin infusion 05/29 with 18 units lantus @ HS. 05/30 Glucose @ 5:17 68. Glucose range 101 to 264.
Yesterday received AM lantus 15 units with novolog 6 units AC. Glucose range 135 to 177. Will continue current regimen: AC novolog 6 units with low corrective insulin, AM Lantus 15 units. Cr today 4.0, eGFR 16.43, will continue to HOLD farxiga.
Discussed with Nurse. Will cont to follow
Diabetes History
- -
Type of Diabetes: 2 requiring insulin
Pre-Admission Diabetes Regimen
06/01/25
06:23
Creatinine 4.0 H
Insulin Pump Settings
IP Diabetes Regimen
05/31/25 05/31/25 05/31/25
08:47 12:42 16:22
Glucose
POC Glucose 290 H 168 H 177 H
05/31/25 06/01/25
21:23 06:23
Glucose 170 H
POC Glucose 135 H
Meal type: Dinner
Meal type: Lunch
Amount consumed: 100%
Amount consumed: 100%
Patient Education
[2025-06-01 08:30] LABS: Glucose - Point of Care 208 mg/dl (70-99)
[2025-06-01] MEDS: APRESOLINE 50 MG PO ×3 (08:52→22:13)
[2025-06-01] MEDS: COREG 12.5 MG PO ×2 (08:52→20:02)
[2025-06-01] MEDS: ASPIR LOW (ENTERIC COATED) 81 MG PO (08:52)
[2025-06-01] MEDS: IMDUR (EXTENDED RELEASE) 30 MG PO (08:52)
[2025-06-01] MEDS: LASIX 40 MG IV ×2 (08:55→16:14)
[2025-06-01] MEDS: NOVOLOG FLEXPEN-LOW RESISTANCE 2 UNITS SC ×2 (09:01→17:00)
[2025-06-01] MEDS: NOVOLOG FLEXPEN 6 UNITS SC ×3 (09:02→17:00)
[2025-06-01] MEDS: LANTUS 0.15 UNITS SC (09:03)
--- NOTE | 2025-06-01 10:49 | W.PN.HOSP.TC ---
Today's Communication/Plan
-
Continue current care
Assessment / Plan
Assessment / Plan
Gen-AAOx3, NAD
HEENT-NC, AT, anicteric, clear oral mm
Neck-supple
CV-reg, no M, +S1/S2
Lungs-clear B/L
Abd-soft, NT, ND
Ext-improved bilateral lower extremity edema
Musculoskeletal-no cyanosis, clubbing
Skin-warm and dry
Neuro-grossly non-focal
Psych-calm, cooperative
DM2 with hyperglycemia -glucoses overall improved, acidosis resolved. Glucose 208 this morning, 135 last night.
Transitioned off insulin drip 05/29, continue basal/bolus insulin. Diabetes RESIN FILTERER following. He has a continuous glucose monitor.
Farxiga on hold for JAMAR.
Patient admits to noncompliance with his home diabetes regimen. He cannot tell me why he decided not to take his meds. He did have access to all his meds, with the exception of torsemide which he ran out of.
He denies feeling depressed, denies suicidal ideation. Denies history of mental illness. He understands that DKA and hyperglycemia can potentially cause .
Recent hemoglobin A1c 6.2%, 05/03/2025. This may not be reliable due to his chronic anemia.
Dr. Cordero, endocrinology, monitors his diabetes.
JAMAR on CKD 4 -likely due to intravascular volume depletion due to osmotic diuresis due to significant hyperglycemia. Creatinine of 4.3 on presentation, baseline creatinine usually 2.8. Creatinine 4.0 today.
Renal ultrasound with mild increased renal echogenicity suggesting medical renal disease, no calculus or hydronephrosis.
Acute on chronic heart failure with preserved EF -weight is up significantly compared to October 2024. In October his weight was 61 kg, 69 kg on admission. Not compliant with torsemide, states he ran out several days prior to admission. Weight down 4
kg so far. Continue IV Lasix.
BNP greater than 27,000.
Admission chest x-ray with mild to moderate pulmonary edema. Left lower lobe consolidation likely due to atelectasis, clinically doubt pneumonia. Small left pleural effusion.
Echocardiogram shows improvement of LVEF to 52%, previously 35% in February.
Essential hypertension -blood pressure uncontrolled. Did not get carvedilol yesterday due to hold parameters. Will adjust hold parameters.
Hypothyroidism -TSH 4.0, continue levothyroxine.
Hyperlipidemia -atorvastatin.
Chronic anemia -likely related to CKD. Hemoglobin improved spontaneously to 8.4. Monitor for now. No evidence of bleeding.
Acute thrombocytopenia/pancytopenia -unclear etiology. No known history of liver disease. Patient does not see hematology at [facility].
Abdominal ultrasound shows small bilateral pleural effusions, minimal amount of ascites, multiple gallbladder polyps. Recommendation for repeat ultrasound to follow-up on the gallbladder in 1 year.
Full code
Dispo -anticipate discharge to acute rehab when medically stable.
Anticipated Discharge: Within 24 hours
Subjective/Interval History
-
Date of Service: June 01, 2025
Patient seen and examined. No new complaints. Denies shortness of breath.
Objective Data
-
Labs:
Laboratory Results
06/01/25
06:23
WBC 4.7 L
Hgb 8.4 L
Hct 25.7 L
Plt Count 116 L
Sodium 134 L
Potassium 4.3
Chloride 98
Carbon Dioxide 30
BUN 74 H
Creatinine 4.0 H
Glucose 170 H
Calcium 8.3 L
Total Bilirubin 0.6
AST 27
ALT 11
Alkaline Phosphatase 104
Vital Signs:
Vital Signs
Temp Pulse Resp BP Pulse Ox
97.7 F 70 18 182/88 96
06/01/25 08:08 06/01/25 08:52 06/01/25 08:08 06/01/25 08:52 06/01/25 08:08
I&O
05/31/25 06/01/25 06/02/25
06:59 06:59 06:59
Intake Total 1200 / 1200 240 / 240
Output Total 2625 / 2625 3125 / 3125
Balance -1425 / -1425 -2885 / -2885
Review of Systems
-
History Source: Patient
All other systems: Reviewed and negative
[2025-06-01 11:47] LABS: Glucose - Point of Care 263 mg/dl (70-99)
[2025-06-01] MEDS: COLACE 100 MG PO ×2 (12:13→20:02)
[2025-06-01] MEDS: MIRALAX 17 GRAMS PO (12:13)
[2025-06-01] MEDS: NOVOLOG FLEXPEN-LOW RESISTANCE 3 UNITS SC (12:19)
--- NOTE | 2025-06-01 12:50 | W.PN.CARDCBS ---
Addendum entered and electronically signed by Shane Amaya MD 06/01/25 13:07:
60-year-old man admitted with DKA and acute HFrEF May 28 with acute HFrEF.
PMH/SH/PSH: CAD/WILMAR to first septal cardiopulmonary technologist chief 2021, history of cardiomyopathy, nonischemic, CKD baseline creatinine 3, hypertension, hyperlipidemia, hypothyroidism, recurrent pleural effusions, orthostatic hypotension, diabetes, obstructive sleep
apnea, right tib/fib fracture 2023, poor social support, noncompliance
Medications: Aspirin 81 mg a day, atorvastatin 40 mg a day, carvedilol 12.5 mg twice daily, levothyroxine, subcu heparin, furosemide 40 mg IV twice daily, hydralazine 50 mg 3 times daily, isosorbide mononitrate 30 mg a day, Lantus
182/88, 160/78 pulse 68, respiratory rate 18, afebrile, weight is 65.8 kg which is down 2 kg from yesterday 1.2 kg from admission, no distress, lungs are clear, regular rate and rhythm, no obvious murmurs, JVD not markedly elevated 1+ edema
Echo 05/29 EF 52%, normal strain, moderate LVH, mild MR, trace AI, pleural effusion
Hemoglobin 8.4, had been 7.3, BUN and creatinine are 74 and 4.0, potassium is 4.3, bicarb is 30, glucose is 170, troponin was 0.042
Impression:
Admitted with DKA 05/29/2025
DM 2 and diabetic ketoacidosis
Acute on chronic HFrEF
Medical noncompliance
AJMAR on CKD stage IV
CAD, history of septal cardiopulmonary technologist chief stent
Recurrent pleural effusions, presumably related to heart failure
Hypertension
Hyperlipidemia
Hypothyroidism
Type 2 diabetes
Chronic anemia
Obstructive sleep apnea
Orthostatic hypotension
Echo 05/29/25, EF 52%, moderate LVH, Mild MR
Plan:
At present, he is not in distress related to volume overload. Currently he is receiving furosemide 40 mg IV twice daily.
Also he remains hypertensive.
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 His ejection fraction is normal and myocardial strain is also normal.
Will defer to nephrology regarding diuretics and antihypertensives, would not object to an increase in hydralazine and nitrates given his history of heart failure.
Troponin was minimally detectable at the time of admission. Will defer to his outpatient safety teacher Dr. Júnior Mayo of [facility] as to whether outpatient ischemic evaluation should be considered. He should follow-up to Dr. Mayo as an
outpatient.
We will sign off, please call if questions.
Original Note:
Today's Communication / Plan
-
-continue diuresis
Impression / Plan
-
PCP: Ajay Arteaga PA-C
Cardiology: Dr. Sanchez, previously Dr. Júnior Mayo at [facility]
Impression:
Admitted with DKA 05/29/2025
DM 2 and diabetic ketoacidosis
Acute on chronic HFrEF
Medical noncompliance
JAMAR on CKD stage IV
CAD, history of septal cardiopulmonary technologist chief stent
Recurrent pleural effusions, presumably related to heart failure
Hypertension
Hyperlipidemia
Hypothyroidism
Type 2 diabetes
Chronic anemia
Obstructive sleep apnea
Orthostatic hypotension
Echo 05/29/25, EF 52%, moderate LVH, Mild MR
Plan:
-He presented with acute on chronic HFrEF in the setting of diabetic ketoacidosis felt to be related to noncompliance.
-Weight is down at least 7 lbs with Lasix 40 mg IV BID. Patient was supposed to be taking torsemide 30 mg daily prior to admission, but there is suspicion that he was noncompliant
-Cre as high as 4.3, but improved to 4.0 on labs 06/01/2025. Nephrology is following and recommends ongoing Lasix IV and there are currently no acute needs for HD
-EF preserved to 52% by echo 05/29/2025
-Outpatient dose of Coreg 12.5 mg BID has been continued
-Patient was not chronically on SILKE/ARB/ARNI/aldosterone antagonist due to CKD 4 prior to admission.
-Outpatient dose of hydralazine has been increased to 50 mg TID, BPs remain elevated today, consider further uptitration to 75 mg TID.
-Patient is new to Imdur ER 30 mg daily
-SGLT2 inhibitor is contraindicated with JAMAR on CKD 4 at this time
-Troponin 0.042 on 05/30/2025 AM. EF was preserved to 52% without WMA on echo report that was reviewed by me and ECG personally reviewed 05/31/2025 from 05/29/2025 showed sinus bradycardia without acute ST changes
-Outpatient dose of aspirin 81 mg daily has been continued
-Medication noncompliance is related in part to financial hardship and that patient was in between jobs, but he reports he is now on disability and that he has insurance.
Telemetry personally reviewed: Normal sinus rhythm 60s.
Progress Note - Mesh Man
Subjective
Date of Service: June 01, 2025
-denies SOB/CP. STill w/ LE edema
Objective
Labs:
06/01/25 06:23
06/01/25 06:23
Labs
Hgb 8.4 g/dL (13.0-18.0) L 06/01/25 06:23
Hct 25.7 % (39.0-52.0) L 06/01/25 06:23
Plt Count 116 10^3/uL (130-400) L 06/01/25 06:23
Sodium 134 mmol/L (135-145) L 06/01/25 06:23
Potassium 4.3 mmol/L (3.5-5.1) 06/01/25 06:23
BUN 74 mg/dl (9-20) H 06/01/25 06:23
Creatinine 4.0 mg/dL (0.7-1.3) H 06/01/25 06:23
Glucose 170 mg/dl (70-99) H 06/01/25 06:23
Troponins
05/30/25
03:44
Troponin I 0.042 H*
Vital Signs and I&O:
Vital Signs
Temp Pulse Resp BP Pulse Ox
98.1 F 62 18 170/82 96
06/01/25 11:28 06/01/25 11:28 06/01/25 11:28 06/01/25 11:28 06/01/25 11:28
Vital Signs
Temp Pulse Resp BP Pulse Ox
98.1 F 62 18 170/82 96
06/01/25 11:28 06/01/25 11:28 06/01/25 11:28 06/01/25 11:28 06/01/25 11:28
Intake & Output
05/30/25 05/31/25 06/01/25 06/02/25
06:59 06:59 06:59 06:59
Intake Total 145.7 / 145.7 1200 / 1200 240 / 240
Output Total 1117 / 1117 2625 / 2625 3125 / 3125 550 / 550
Balance -971.3 / -971.3 -1425 / -1425 -2885 / -2885 -550 / -550
Physical Exam
Physical Exam
GEN: No distress, awake, Ox3
HEENT: supple, anicteric, mmm
LUNGS: CTA, no wheezes/rales
CV: Reg, S1/S2, 1/6 syst LSB
ABD: soft, BS+, NT/ND
EXT: 1+ B/L LE edema, soft
NEURO: Gross non-focal
SKIN: No rash
--- NOTE | 2025-06-01 13:35 | W.PN.NEPH.PH ---
Today's Communication / Plan
-
Maintain IV Lasix
Assessment/Plan
-
Assessment
JAMAR
CKD 4
Diabetes mellitus type 2
Hypertension
Edema
Heart failure reduced ejection fraction 35%
To thrive
Hyponatremia
Hyperkalemia
Metabolic acidosis
nephrotic range proteinuria from DKD
Plan
continue IV lasix 40 mg twice
follow BMP, creatinine unchanged at 4
Hyponatremia evolving sodium down to 134
6 g of proteinuria noted by urine protein to creatinine ratio likely due to diabetic nephropathy
I do not expect any significant improvement with his renal function during this admission
US renal ok
no acute HD needs currently
wean O2 as allowed
-
-
Date of Service: June 01, 2025
CC / HPI / ROS
-
Chief Complaint:
JAMAR
History of Present Illness:
JAMAR/Cr stable 4.0
BP high
remains on supplemental O2
diuresing with lasix for decompensated HF
Review of Systems:
no CP/SOB
Nonoliguric
Weights down
Labs
-
Labs:
WBC 4.7 10^3/uL (4.8-10.8) L 06/01/25 06:23
RBC 2.70 10^6/uL (4.70-6.10) L 06/01/25 06:23
Hgb 8.4 g/dL (13.0-18.0) L 06/01/25 06:23
Hct 25.7 % (39.0-52.0) L 06/01/25 06:23
Plt Count 116 10^3/uL (130-400) L 06/01/25 06:23
Sodium 134 mmol/L (135-145) L 06/01/25 06:23
Potassium 4.3 mmol/L (3.5-5.1) 06/01/25 06:23
Chloride 98 mmol/L (98-107) 06/01/25 06:23
Carbon Dioxide 30 mmol/L (22-30) 06/01/25 06:23
BUN 74 mg/dl (9-20) H 06/01/25 06:23
Creatinine 4.0 mg/dL (0.7-1.3) H 06/01/25 06:23
eGFR 16.43 06/01/25 06:23
Glucose 170 mg/dl (70-99) H 06/01/25 06:23
Calcium 8.3 mg/dl (8.4-10.2) L 06/01/25 06:23
Phosphorus 5.0 mg/dl (2.5-4.5) H 05/29/25 08:17
Rjv-Q-Iqxqilnmnos Pept > 27012 pg/ml 05/29/25 03:48
Albumin 3.0 g/dl (3.5-5.0) L 06/01/25 06:23
Physical Exam
-
Vital Signs:
Vital Signs
Temp Pulse Resp BP Pulse Ox
98.1 F 62 18 170/82 96
06/01/25 11:28 06/01/25 11:28 06/01/25 11:28 06/01/25 11:28 06/01/25 11:28
Cardiovascular:: Regular rate and rhythm
Respiratory:: Bilateral: Coarse
Lung Excursion:: Normal
Abdomen:: Nontender and Soft
Bowel Sounds:: Normal
Extremity Edema:: +1: Bilateral:
Ratliff Catheter: No
[2025-06-01 16:31] LABS: Glucose - Point of Care 236 mg/dl (70-99)
[2025-06-01 21:22] LABS: Glucose - Point of Care 300 mg/dl (70-99)
[2025-06-01] MEDS: LIPITOR 40 MG PO (22:13)
[2025-06-01] MEDS: NOVOLOG FLEXPEN 4 UNITS SC (22:28)
[2025-06-02] VITALS (7 sets, daily range): BP systolic 92–182; BP diastolic 45–90; BMI 21.9
[2025-06-02] MEDS: SYNTHROID 112 MCG PO (05:54)
--- NOTE | 2025-06-02 07:24 | PN.DE.MGMTRT ---
Insulin Management
- -
06/02/2025: Diabetes Management Follow up
Patient is 60-year-old male who was brought to the ED by ambulance due to difficulty getting up after sliding to the floor.
PMH: CAD s/p stenting, ICM with CHF EF 35% Diastolic dysfunction, JESSENIA, CKD stage III baseline Cr 2-3, Hypothyroid and IDDM.
Reports 2 days of elevated blood glucose readings, decided not to take his insulin despite the elevations because he had trouble walking to the fridge due to swelling in his feet. Glucose on admission 839, elevated beta hydroxybutyrate to 4.3. pH
was 7.27. Anion gap 14, suggestive of a mixed high anion gap and non-gap acidosis. He was started on HHS-DKA protocol. Prior to admission was taking Farxiga 10 mg daily, Lantus 15 units daily with Humalog AC. A1C on admission 6.2%. States he has
been diabetic for over 10 years.
Sees Endocrine associates Dr. Cordero, and uses CGM- Nirmal 3.
Pt is awake, alert, resting in bed in NAD, offers no complaints, flat affect, able to discuss diabetes care plan. Patient has very poor insight as to importance of taking insulin. Transitioned from insulin infusion on 05/29. Fasting glucose 184V, 200
POC this AM.
Yesterday received AM Lantus 15 units with NovoLog 6 units AC. Glucose range 208 to 263, required 2-3 units of additional corrective insulin.
Will increase AC NovoLog from 6 units to 9 units and AM Lantus from 15 units to 17 units. Cont low corrective insulin.
Cr today 4.0, eGFR 16.43, will continue to HOLD Farxiga.
Discussed with Nurse. Will cont to follow
Diabetes History
- -
Type of Diabetes: 2 requiring insulin
Pre-Admission Diabetes Regimen
Insulin Pump Settings
IP Diabetes Regimen
06/01/25 06/01/25 06/01/25
08:18 11:44 16:29
POC Glucose 208 H 263 H 236 H
06/01/25
21:20
POC Glucose 300 H
Meal type: Dinner
Meal type: Lunch
Meal type: Breakfast
Amount consumed: 100%
Amount consumed: 100%
Amount consumed: 100%
Patient Education
[2025-06-02 08:08] LABS: Glucose - Point of Care 200 mg/dl (70-99)
[2025-06-02] MEDS: ASPIR LOW (ENTERIC COATED) 81 MG PO (08:23)
[2025-06-02] MEDS: IMDUR (EXTENDED RELEASE) 30 MG PO (08:23)
[2025-06-02] MEDS: COLACE 100 MG PO ×2 (08:23→21:00)
[2025-06-02] MEDS: COREG 12.5 MG PO (08:23)
[2025-06-02] MEDS: APRESOLINE 50 MG PO ×2 (08:23→17:19)
[2025-06-02] MEDS: HEPARIN 5000 UNITS SC ×2 (08:23→17:20)
[2025-06-02] MEDS: LASIX 40 MG IV ×2 (08:24→17:21)
[2025-06-02] MEDS: MIRALAX PO (08:24)
[2025-06-02] MEDS: NOVOLOG FLEXPEN-LOW RESISTANCE 2 UNITS SC (08:25)
[2025-06-02] MEDS: NOVOLOG FLEXPEN 9 UNITS SC ×3 (08:25→17:21)
[2025-06-02 08:29] LABS: Hematocrit 22.7 % (39.0-52.0); Hemoglobin 7.8 g/dL (13.0-18.0); Mean Corp Hgb Conc. 34.4 g/dL (33.0-37.0); Mean Corpuscular Volume 93.4 fL (80.0-94.0); Nucleated Red Blood Cells % 0 % (-); Platelet Count 122 10^3/uL (130-400); Red Cell Dist. Width 14.6 % (11.5-14.5)
[2025-06-02] MEDS: LANTUS SC (08:35)
[2025-06-02] MEDS: LANTUS 0.17 UNITS SC (08:38)
[2025-06-02 09:06] LABS: ALT (SGPT) < 10 U/L (0-50); AST (SGOT) 26 U/L (17-59); Albumin 2.8 g/dl (3.5-5.0); Alkaline Phosphatase 102 U/L (38-126); Blood Urea Nitrogen 76 mg/dl (9-20); Calcium 8.1 mg/dl (8.4-10.2); Carbon Dioxide 32 mmol/L (22-30); Chloride 95 mmol/L (98-107); Estimated Creatinine Clearance 21 ml/min; Glucose 184 mg/dl (70-99); Potassium 4.4 mmol/L (3.5-5.1); Sodium 132 mmol/L (135-145); Total Protein 5.2 g/dl (6.3-8.2); eGFR 19.28
--- NOTE | 2025-06-02 10:23 | W.PN.HOSP.TC ---
Today's Communication/Plan
-
Add Procardia
Assessment / Plan
Assessment / Plan
Gen-AAOx3, NAD
HEENT-NC, AT, anicteric, clear oral mm
Neck-supple
CV-reg, no M, +S1/S2
Lungs-clear B/L
Abd-soft, NT, ND
Ext-improved bilateral lower extremity edema
Musculoskeletal-no cyanosis, clubbing
Skin-warm and dry
Neuro-grossly non-focal
Psych-calm, cooperative
DM2 with hyperglycemia -glucoses overall improved, acidosis resolved. Glucose 184 this morning, 300 last night.
Transitioned off insulin drip 05/29, continue basal/bolus insulin. Diabetes GRISTMILLER following. He has a continuous glucose monitor.
Farxiga on hold for JAMAR.
Patient admits to noncompliance with his home diabetes regimen. He cannot tell me why he decided not to take his meds. He did have access to all his meds, with the exception of torsemide which he ran out of.
He denies feeling depressed, denies suicidal ideation. Denies history of mental illness. He understands that DKA and hyperglycemia can potentially cause .
Recent hemoglobin A1c 6.2%, 05/03/2025. This may not be reliable due to his chronic anemia.
Dr. Cordero, endocrinology, monitors his diabetes.
JAMAR on CKD 4 -likely due to intravascular volume depletion due to osmotic diuresis due to significant hyperglycemia. Creatinine of 4.3 on presentation, baseline creatinine usually 2.8. Creatinine improved to 3.5 today.
Renal ultrasound with mild increased renal echogenicity suggesting medical renal disease, no calculus or hydronephrosis.
Acute on chronic heart failure with preserved EF -weight is up significantly compared to October 2024. In October his weight was 61 kg, 69 kg on admission. Not compliant with torsemide, states he ran out several days prior to admission. Weight down 4
kg so far. Continue IV Lasix.
BNP greater than 27,000.
Admission chest x-ray with mild to moderate pulmonary edema. Left lower lobe consolidation likely due to atelectasis, clinically doubt pneumonia. Small left pleural effusion.
Echocardiogram shows improvement of LVEF to 52%, previously 35% in February.
Hyponatremia -stable at 132. Fluid restriction.
Essential hypertension -blood pressure uncontrolled. Currently on carvedilol 12.5 mg twice daily, hydralazine 50 mg 3 times daily, isosorbide mononitrate 30 mg daily. Add Procardia XL.
Hypothyroidism -TSH 4.0, continue levothyroxine.
Hyperlipidemia -atorvastatin.
Chronic anemia -likely related to CKD. Hemoglobin fluctuating, 7.8 today. Monitor for now.
Acute thrombocytopenia/pancytopenia -unclear etiology. No known history of liver disease. Patient does not see hematology at [facility].
Abdominal ultrasound shows small bilateral pleural effusions, minimal amount of ascites, multiple gallbladder polyps. Recommendation for repeat ultrasound to follow-up on the gallbladder in 1 year.
Full code
Dispo -anticipate discharge to acute rehab when medically stable.
Anticipated Discharge: Within 24 hours
Subjective/Interval History
-
Date of Service: June 02, 2025
Patient seen and examined. No complaints.
Objective Data
-
Labs:
Laboratory Results
06/02/25
07:22
WBC 4.5 L
Hgb 7.8 L
Hct 22.7 L
Plt Count 122 L
Sodium 132 L
Potassium 4.4
Chloride 95 L
Carbon Dioxide 32 H
BUN 76 H
Creatinine 3.5 H
Glucose 184 H
Calcium 8.1 L
Total Bilirubin 0.5
AST 26
ALT < 10
Alkaline Phosphatase 102
Vital Signs:
Vital Signs
Temp Pulse Resp BP Pulse Ox
97.6 F 70 18 182/90 96
06/02/25 08:53 06/02/25 08:53 06/02/25 08:53 06/02/25 08:53 06/02/25 08:53
I&O
06/01/25 06/02/25 06/03/25
06:59 06:59 06:59
Intake Total 240 / 240 480 / 480
Output Total 3125 / 3125 550 / 550
Balance -2885 / -2885 -70 / -70
Review of Systems
-
History Source: Patient
All other systems: Reviewed and negative
[2025-06-02] MEDS: PROCARDIA XL (EXTENDED RELEASE) 30 MG PO (11:31)
[2025-06-02 12:01] LABS: Glucose - Point of Care 294 mg/dl (70-99)
[2025-06-02] MEDS: NOVOLOG FLEXPEN-LOW RESISTANCE 3 UNITS SC ×2 (12:02→17:21)
--- NOTE | 2025-06-02 16:14 | W.PN.NEPH.PH ---
Today's Communication / Plan
-
see plan
Assessment/Plan
-
Assessment
JAMAR
CKD 4
Diabetes mellitus type 2
Hypertension
Edema
Heart failure reduced ejection fraction 35%
To thrive
Hyponatremia
Hyperkalemia
Metabolic acidosis
nephrotic range proteinuria from DKD
Plan
continue IV lasix 40 mg twice
cr improving to 3.5
6 g of proteinuria noted by urine protein to creatinine ratio likely due to diabetic nephropathy
US renal ok
stable hyponatremia
cont lasix, monitor evolving met alkalosis
likely switch to Torsemide tomorrow -cont home dose
possible dry wt around 62kg
BP stable, cont home meds
anemia-he supposed to see heme -not sure if he did it , will dose procrit today, had adequate fe stores in Sep
Reviewed Nephro Dr Scruggs notes in [facility]-there is concern of compliance
f/u nephro
-
-
Date of Service: June 02, 2025
CC / HPI / ROS
-
Chief Complaint:
JAMAR
History of Present Illness:
JAMAR/Cr better at 3.5, bicarb 32
BP improving
off supplemental O2
diuresing with lasix for decompensated HF
hb low at 7.8
Review of Systems:
no CP/SOB
Nonoliguric
Weights down slowly
Labs
-
Labs:
WBC 4.5 10^3/uL (4.8-10.8) L 06/02/25 07:22
RBC 2.43 10^6/uL (4.70-6.10) L 06/02/25 07:22
Hgb 7.8 g/dL (13.0-18.0) L 06/02/25 07:22
Hct 22.7 % (39.0-52.0) L 06/02/25 07:22
Plt Count 122 10^3/uL (130-400) L 06/02/25 07:22
Sodium 132 mmol/L (135-145) L 06/02/25 07:22
Potassium 4.4 mmol/L (3.5-5.1) 06/02/25 07:22
Chloride 95 mmol/L (98-107) L 06/02/25 07:22
Carbon Dioxide 32 mmol/L (22-30) H 06/02/25 07:22
BUN 76 mg/dl (9-20) H 06/02/25 07:22
Creatinine 3.5 mg/dL (0.7-1.3) H 06/02/25 07:22
eGFR 19.28 06/02/25 07:22
Glucose 184 mg/dl (70-99) H 06/02/25 07:22
Calcium 8.1 mg/dl (8.4-10.2) L 06/02/25 07:22
Phosphorus 5.0 mg/dl (2.5-4.5) H 05/29/25 08:17
Bxr-W-Mqxzoikmawd Pept > 80633 pg/ml 05/29/25 03:48
Albumin 2.8 g/dl (3.5-5.0) L 06/02/25 07:22
Physical Exam
-
Vital Signs:
Vital Signs
Temp Pulse Resp BP Pulse Ox
97.7 F 67 18 107/47 97
06/02/25 15:48 06/02/25 15:48 06/02/25 15:48 06/02/25 15:48 06/02/25 15:48
Cardiovascular:: Regular rate and rhythm
Respiratory:: Bilateral: Coarse
Lung Excursion:: Normal
Abdomen:: Nontender and Soft
Bowel Sounds:: Normal
Extremity Edema:: +1: Bilateral:
Ratliff Catheter: No
--- NOTE | 2025-06-02 16:47 | CM ---
PT OT indicate acute rehab .Pt declined PT eval today.
PT will need updated PT OT evals for dc.
LM with Ivelisse at [facility] about available beds for pt and NPI for auth .
PMR eval done.
Pt will need auth ath [employer]
Weaned off Oxygen POx 97%.
PLAN Awaiting [facility] acute rehab determination then auth
[2025-06-02 16:53] LABS: Glucose - Point of Care 251 mg/dl (70-99)
[2025-06-02] MEDS: RETACRIT 10000 UNITS SC (18:15)
[2025-06-02] MEDS: COREG PO (21:00)
[2025-06-02] MEDS: LIPITOR 40 MG PO (21:06)
[2025-06-02] MEDS: APRESOLINE PO (21:06)
[2025-06-02 21:17] LABS: Glucose - Point of Care 305 mg/dl (70-99)
[2025-06-03] VITALS (9 sets, daily range): BP systolic 96–161; BP diastolic 50–76; BMI 22.1
[2025-06-03] MEDS: HEPARIN 5000 UNITS SC ×3 (00:12→16:55)
[2025-06-03] MEDS: SYNTHROID 112 MCG PO (05:53)
[2025-06-03 06:49] LABS: Hematocrit 21.2 % (39.0-52.0); Hemoglobin 7.2 g/dL (13.0-18.0); Mean Corp Hgb Conc. 34.0 g/dL (33.0-37.0); Mean Corpuscular Volume 93.8 fL (80.0-94.0); Nucleated Red Blood Cells % 0 % (-); Platelet Count 122 10^3/uL (130-400); Red Cell Dist. Width 14.7 % (11.5-14.5)
[2025-06-03 07:06] LABS: Blood Urea Nitrogen 84 mg/dl (9-20); Calcium 7.9 mg/dl (8.4-10.2); Carbon Dioxide 32 mmol/L (22-30); Chloride 94 mmol/L (98-107); Estimated Creatinine Clearance 19 ml/min; Glucose 252 mg/dl (70-99); Potassium 4.7 mmol/L (3.5-5.1); Sodium 131 mmol/L (135-145); eGFR 17.47
[2025-06-03 08:11] LABS: Glucose - Point of Care 261 mg/dl (70-99)
[2025-06-03] MEDS: NOVOLOG FLEXPEN 9 UNITS SC (08:17)
[2025-06-03] MEDS: NOVOLOG FLEXPEN-LOW RESISTANCE 3 UNITS SC ×2 (08:18→12:09)
[2025-06-03] MEDS: ASPIR LOW (ENTERIC COATED) 81 MG PO (08:19)
[2025-06-03] MEDS: IMDUR (EXTENDED RELEASE) 30 MG PO (08:19)
[2025-06-03] MEDS: PROCARDIA XL (EXTENDED RELEASE) 30 MG PO (08:19)
[2025-06-03] MEDS: COREG 12.5 MG PO ×2 (08:19→20:04)
[2025-06-03] MEDS: APRESOLINE 50 MG PO ×3 (08:19→21:09)
[2025-06-03] MEDS: COLACE 100 MG PO ×2 (08:19→20:04)
[2025-06-03] MEDS: MIRALAX PO (08:20)
[2025-06-03] MEDS: LASIX 40 MG IV ×2 (08:20→16:55)
[2025-06-03] MEDS: LANTUS 0.17 UNITS SC (08:22)
--- NOTE | 2025-06-03 09:43 | W.PN.HOSP.TC ---
Today's Communication/Plan
-
Transfuse
Adjust insulin
Assessment / Plan
Assessment / Plan
Gen-AAOx3, NAD
HEENT-NC, AT, anicteric, clear oral mm
Neck-supple
CV-reg, no M, +S1/S2
Lungs-clear B/L
Abd-soft, NT, ND
Ext-improved bilateral lower extremity edema
Musculoskeletal-no cyanosis, clubbing
Skin-warm and dry
Neuro-grossly non-focal
Psych-calm, cooperative
DM2 with hyperglycemia -glucoses overall improved, acidosis resolved. Glucose 252 this morning, 305 last night.
Transitioned off insulin drip 05/29, continue basal/bolus insulin. Diabetes CLINICAL TECHNICIAN following. He has a continuous glucose monitor.
Farxiga on hold for JAMAR.
Patient admits to noncompliance with his home diabetes regimen. He cannot tell me why he decided not to take his meds. He did have access to all his meds, with the exception of torsemide which he ran out of.
He denies feeling depressed, denies suicidal ideation. Denies history of mental illness. He understands that DKA and hyperglycemia can potentially cause .
Recent hemoglobin A1c 6.2%, 05/03/2025. This may not be reliable due to his chronic anemia.
Dr. Cordero, endocrinology, monitors his diabetes.
Will increase dose of mealtime NovoLog and Lantus.
JAMAR on CKD 4 -likely due to intravascular volume depletion due to osmotic diuresis due to significant hyperglycemia. Creatinine of 4.3 on presentation, 3.8 today.
Renal ultrasound with mild increased renal echogenicity suggesting medical renal disease, no calculus or hydronephrosis.
Acute on chronic heart failure with preserved EF -weight is up significantly compared to October 2024. In October his weight was 61 kg, 69 kg on admission. Not compliant with torsemide, states he ran out several days prior to admission. Weight down 4
kg so far. Continue IV Lasix.
BNP greater than 27,000.
Admission chest x-ray with mild to moderate pulmonary edema. Left lower lobe consolidation likely due to atelectasis, clinically doubt pneumonia. Small left pleural effusion.
Echocardiogram shows improvement of LVEF to 52%, previously 35% in February.
Hyponatremia -stable at 131. Fluid restriction.
Essential hypertension -blood pressure uncontrolled. Currently on carvedilol 12.5 mg twice daily, hydralazine 50 mg 3 times daily, isosorbide mononitrate 30 mg daily, Procardia added 06/02.
Hypothyroidism -TSH 4.0, continue levothyroxine.
Hyperlipidemia -atorvastatin.
Acute on chronic anemia -likely related to CKD. Hemoglobin trending down, 7.2 today. Will transfuse 1 unit of blood today. Patient agreeable. Last transfusion was a year ago. No evidence of bleeding. Stools are brown.
Acute thrombocytopenia/pancytopenia -unclear etiology. No known history of liver disease. Patient does not see hematology at [facility].
Abdominal ultrasound shows small bilateral pleural effusions, minimal amount of ascites, multiple gallbladder polyps. Recommendation for repeat ultrasound to follow-up on the gallbladder in 1 year.
Full code
Dispo -anticipate discharge to acute rehab when medically stable.
Anticipated Discharge: 24 - 48 hours
Subjective/Interval History
-
Date of Service: June 03, 2025
Patient seen and examined. No complaints.
Objective Data
-
Labs:
Laboratory Results
06/03/25 06/03/25
05:38 05:39
WBC 4.0 L
Hgb 7.2 L
Hct 21.2 L
Plt Count 122 L
Sodium 131 L
Potassium 4.7
Chloride 94 L
Carbon Dioxide 32 H
BUN 84 H
Creatinine 3.8 H
Glucose 252 H
Calcium 7.9 L
Vital Signs:
Vital Signs
Temp Pulse Resp BP Pulse Ox
97.5 F 67 18 135/70 97
06/03/25 07:00 06/03/25 07:00 06/03/25 07:00 06/03/25 07:00 06/03/25 07:00
I&O
06/02/25 06/03/25 06/04/25
06:59 06:59 06:59
Intake Total 480 / 480
Output Total 550 / 550
Balance -70 / -70
Review of Systems
-
History Source: Patient
All other systems: Reviewed and negative
[2025-06-03 12:08] LABS: Glucose - Point of Care 273 mg/dl (70-99)
[2025-06-03] MEDS: NOVOLOG FLEXPEN 10 UNITS SC ×2 (12:09→16:56)
--- NOTE | 2025-06-03 12:36 | CM ---
Pt is being transfused today. No stable for acute rehab at this time.
Plan: Acute rehab/ [facility]. Waiting on bed availability
[2025-06-03 16:54] LABS: Glucose - Point of Care 192 mg/dl (70-99)
[2025-06-03] MEDS: NOVOLOG FLEXPEN-LOW RESISTANCE 1 UNITS SC (16:56)
--- NOTE | 2025-06-03 17:05 | W.PN.NEPH.PH ---
Today's Communication / Plan
-
hold lasix
labs in am
Assessment/Plan
-
Assessment
JAMAR
CKD 4
Diabetes mellitus type 2
Hypertension
Edema
Heart failure reduced ejection fraction 35%
To thrive
Hyponatremia
Hyperkalemia
Metabolic acidosis
nephrotic range proteinuria from DKD
Plan
cr is slightly up at 3.8 and increasing azotemia
6 g of proteinuria noted by urine protein to creatinine ratio likely due to diabetic nephropathy
US renal ok
stable hyponatremia
hold lasix tonight
likely switch to Torsemide soon
BP stable, cont home meds
anemia-he supposed to see heme -not sure if he did it , s/p procrit 06/02, had adequate fe stores in Sep
Reviewed Nephro Dr Scruggs notes in [facility]-there is concern of compliance
f/u nephro
d/w pt
-
-
Date of Service: June 03, 2025
CC / HPI / ROS
-
Chief Complaint:
JAMAR
History of Present Illness:
JAMAR/Cr up at 3.8, bicarb 32
BP stable
off supplemental O2
diuresing with lasix for decompensated HF
hb low at 7.2
Review of Systems:
no CP/SOB
Nonoliguric
Weights no change
Labs
-
Labs:
WBC 4.0 10^3/uL (4.8-10.8) L 06/03/25 05:39
RBC 2.26 10^6/uL (4.70-6.10) L 06/03/25 05:39
Hgb 7.2 g/dL (13.0-18.0) L 06/03/25 05:39
Hct 21.2 % (39.0-52.0) L 06/03/25 05:39
Plt Count 122 10^3/uL (130-400) L 06/03/25 05:39
Sodium 131 mmol/L (135-145) L 06/03/25 05:38
Potassium 4.7 mmol/L (3.5-5.1) 06/03/25 05:38
Chloride 94 mmol/L (98-107) L 06/03/25 05:38
Carbon Dioxide 32 mmol/L (22-30) H 06/03/25 05:38
BUN 84 mg/dl (9-20) H 06/03/25 05:38
Creatinine 3.8 mg/dL (0.7-1.3) H 06/03/25 05:38
eGFR 17.47 06/03/25 05:38
Glucose 252 mg/dl (70-99) H 06/03/25 05:38
Calcium 7.9 mg/dl (8.4-10.2) L 06/03/25 05:38
Phosphorus 5.0 mg/dl (2.5-4.5) H 05/29/25 08:17
Nul-P-Unjdskxyzhk Pept > 55357 pg/ml 05/29/25 03:48
Albumin 2.8 g/dl (3.5-5.0) L 06/02/25 07:22
Physical Exam
-
Vital Signs:
Vital Signs
Temp Pulse Resp BP Pulse Ox
97.4 F 62 16 129/65 92
06/03/25 15:35 06/03/25 15:35 06/03/25 15:35 06/03/25 15:35 06/03/25 15:01
Cardiovascular:: Regular rate and rhythm
Respiratory:: Bilateral: Coarse
Lung Excursion:: Normal
Abdomen:: Nontender and Soft
Bowel Sounds:: Normal
Extremity Edema:: +1: Bilateral:
Ratliff Catheter: No
[2025-06-03 21:07] LABS: Glucose - Point of Care 188 mg/dl (70-99)
[2025-06-03] MEDS: LIPITOR 40 MG PO (21:09)
[2025-06-04] MEDS: HEPARIN 5000 UNITS SC ×3 (01:00→17:10)
[2025-06-04 03:13] VITALS: BP 163/76
[2025-06-04 06:00] VITALS: BMI 21.9
[2025-06-04] MEDS: SYNTHROID 112 MCG PO (06:27)
[2025-06-04 06:57] LABS: Hematocrit 24.2 % (39.0-52.0); Hemoglobin 8.1 g/dL (13.0-18.0); Mean Corp Hgb Conc. 33.5 g/dL (33.0-37.0); Mean Corpuscular Volume 92.7 fL (80.0-94.0); Nucleated Red Blood Cells % 0 % (-); Platelet Count 125 10^3/uL (130-400); Red Cell Dist. Width 16.4 % (11.5-14.5)
[2025-06-04 07:00] VITALS: BP 146/77
[2025-06-04 07:30] LABS: Blood Urea Nitrogen 87 mg/dl (9-20); Calcium 7.9 mg/dl (8.4-10.2); Carbon Dioxide 33 mmol/L (22-30); Chloride 95 mmol/L (98-107); Estimated Creatinine Clearance 19 ml/min; Glucose 155 mg/dl (70-99); Potassium 5.2 mmol/L (3.5-5.1); Sodium 132 mmol/L (135-145); eGFR 17.47
[2025-06-04 08:34] LABS: Glucose - Point of Care 200 mg/dl (70-99)
[2025-06-04] MEDS: COREG 12.5 MG PO ×2 (08:47→19:57)
[2025-06-04] MEDS: PROCARDIA XL (EXTENDED RELEASE) 30 MG PO (08:47)
[2025-06-04] MEDS: IMDUR (EXTENDED RELEASE) 30 MG PO (08:47)
[2025-06-04] MEDS: ASPIR LOW (ENTERIC COATED) 81 MG PO (08:47)
[2025-06-04] MEDS: APRESOLINE 50 MG PO ×2 (08:47→22:09)
[2025-06-04] MEDS: COLACE 100 MG PO ×2 (08:47→19:57)
[2025-06-04] MEDS: NOVOLOG FLEXPEN-LOW RESISTANCE 2 UNITS SC (08:48)
[2025-06-04] MEDS: LANTUS 0.19 UNITS SC (08:48)
[2025-06-04] MEDS: MIRALAX PO (08:49)
[2025-06-04] MEDS: NOVOLOG FLEXPEN 10 UNITS SC ×2 (08:49→12:14)
--- NOTE | 2025-06-04 09:39 | W.PN.HOSP.TC ---
Today's Communication/Plan
-
Lokelma
BMP in the morning
Assessment / Plan
Assessment / Plan
Gen-AAOx3, NAD
HEENT-NC, AT, anicteric, clear oral mm
Neck-supple
CV-reg, no M, +S1/S2
Lungs-clear B/L
Abd-soft, NT, ND
Ext-improved bilateral lower extremity edema
Musculoskeletal-no cyanosis, clubbing
Skin-warm and dry
Neuro-grossly non-focal
Psych-calm, cooperative
DM2 with hyperglycemia -glucoses overall improved, acidosis resolved. Glucose 155 this morning, 188 last night.
Transitioned off insulin drip 05/29, continue basal/bolus insulin. Diabetes AVIATION CONSULTANT following. He has a continuous glucose monitor.
Farxiga on hold for JAMAR.
Patient admits to noncompliance with his home diabetes regimen. He cannot tell me why he decided not to take his meds. He did have access to all his meds, with the exception of torsemide which he ran out of.
He denies feeling depressed, denies suicidal ideation. Denies history of mental illness. He understands that DKA and hyperglycemia can potentially cause .
Recent hemoglobin A1c 6.2%, 05/03/2025. This may not be reliable due to his chronic anemia.
Dr. Cordero, endocrinology, monitors his diabetes.
Continue current dose of Lantus 19 units daily, NovoLog 10 units with meals. Low resistance NovoLog scale.
JAMAR on CKD 4 -likely due to intravascular volume depletion due to osmotic diuresis due to significant hyperglycemia. Creatinine of 4.3 on presentation, 3.8 again today. Does have rising bicarb with contraction alkalosis possibly due to diuretic
effect. Lasix discontinued by nephrology yesterday.
Renal ultrasound with mild increased renal echogenicity suggesting medical renal disease, no calculus or hydronephrosis.
Acute on chronic heart failure with preserved EF -weight is up significantly compared to October 2024. In October his weight was 61 kg, 69 kg on admission. Not compliant with torsemide, states he ran out several days prior to admission. Weight has
plateaued at 65 kg. Last dose of Lasix was yesterday, waiting for improvement in renal function.
Still looks volume overloaded however with lower extremity edema.
BNP greater than 27,000.
Admission chest x-ray with mild to moderate pulmonary edema. Left lower lobe consolidation likely due to atelectasis, clinically doubt pneumonia. Small left pleural effusion.
Echocardiogram shows improvement of LVEF to 52%, previously 35% in February.
Hyperkalemia -5.2. Will give a dose of Lokelma and repeat labs in the morning.
Hyponatremia -stable at 132. Fluid restriction.
Essential hypertension -stable. Currently on carvedilol 12.5 mg twice daily, hydralazine 50 mg 3 times daily, isosorbide mononitrate 30 mg daily, Procardia added 06/02.
Hypothyroidism -TSH 4.0, continue levothyroxine.
Hyperlipidemia -atorvastatin.
Acute on chronic anemia -likely related to CKD. Admission hemoglobin 8.1, 7.2 yesterday morning. Hemoglobin improved to 8.1 this morning, transfused 1 unit of blood 06/03. No evidence of bleeding. Stools are brown.
Acute thrombocytopenia/pancytopenia -unclear etiology. No known history of liver disease. Patient does not see hematology at [place].
Abdominal ultrasound shows small bilateral pleural effusions, minimal amount of ascites, multiple gallbladder polyps. Recommendation for repeat ultrasound to follow-up on the gallbladder in 1 year.
Full code
Dispo -anticipate discharge to acute rehab when medically stable, possibly Thursday.
Anticipated Discharge: Within 24 hours
Subjective/Interval History
-
Date of Service: June 04, 2025
Patient seen and examined. No complaints.
Objective Data
-
Labs:
Laboratory Results
06/04/25
06:13
WBC 5.4
Hgb 8.1 L
Hct 24.2 L
Plt Count 125 L
Sodium 132 L
Potassium 5.2 H
Chloride 95 L
Carbon Dioxide 33 H
BUN 87 H
Creatinine 3.8 H
Glucose 155 H
Calcium 7.9 L
Vital Signs:
Vital Signs
Temp Pulse Resp BP Pulse Ox
98.7 F 76 16 146/77 92
06/04/25 07:00 06/04/25 08:47 06/04/25 07:00 06/04/25 08:47 06/04/25 07:00
I&O
06/03/25 06/04/25 06/05/25
06:59 06:59 06:59
Intake Total 1220 / 1220
Balance 1220 / 1220
Review of Systems
-
History Source: Patient
All other systems: Reviewed and negative
[2025-06-04] MEDS: LOKELMA 10 GRAM PO (10:49)
[2025-06-04 11:00] VITALS: BP 132/50
[2025-06-04 12:09] LABS: Glucose - Point of Care 173 mg/dl (70-99)
[2025-06-04] MEDS: NOVOLOG FLEXPEN-LOW RESISTANCE 1 UNITS SC (12:13)
[2025-06-04 15:00] VITALS: BP 101/49
--- NOTE | 2025-06-04 16:13 | W.PN.NEPH.PH ---
Today's Communication / Plan
-
follow labs off lasix
Assessment/Plan
-
Assessment
JAMAR
CKD 4
Diabetes mellitus type 2
Hypertension
Edema
Heart failure reduced ejection fraction 35%
To thrive
Hyponatremia
Hyperkalemia
Metabolic acidosis
nephrotic range proteinuria from DKD
Plan
cr no change at 3.8 and increasing azotemia
6 g of proteinuria noted by urine protein to creatinine ratio likely due to diabetic nephropathy
US renal ok
stable hyponatremia
ok for LOkelma for mild high k
hold lasix and likely switch to Torsemide soon
stable hyponatremia
BP stable, cont home meds
anemia-he supposed to see heme -not sure if he did it , s/p procrit 06/02, had adequate fe stores in Sep
Reviewed Nephro Dr Scruggs notes in [facility]-there is concern of compliance
f/u nephro
d/w pt
-
-
Date of Service: June 04, 2025
CC / HPI / ROS
-
Chief Complaint:
JAMAR
History of Present Illness:
JAMAR/Cr no change t 3.8, bicarb 33, BUn at 87
BP stable
off supplemental O2
hb better at 8.1
Review of Systems:
no CP/SOB
Nonoliguric
Weights no change
Labs
-
Labs:
WBC 5.4 10^3/uL (4.8-10.8) 06/04/25 06:13
RBC 2.61 10^6/uL (4.70-6.10) L 06/04/25 06:13
Hgb 8.1 g/dL (13.0-18.0) L 06/04/25 06:13
Hct 24.2 % (39.0-52.0) L 06/04/25 06:13
Plt Count 125 10^3/uL (130-400) L 06/04/25 06:13
Sodium 132 mmol/L (135-145) L 06/04/25 06:13
Potassium 5.2 mmol/L (3.5-5.1) H 06/04/25 06:13
Chloride 95 mmol/L (98-107) L 06/04/25 06:13
Carbon Dioxide 33 mmol/L (22-30) H 06/04/25 06:13
BUN 87 mg/dl (9-20) H 06/04/25 06:13
Creatinine 3.8 mg/dL (0.7-1.3) H 06/04/25 06:13
eGFR 17.47 06/04/25 06:13
Glucose 155 mg/dl (70-99) H 06/04/25 06:13
Calcium 7.9 mg/dl (8.4-10.2) L 06/04/25 06:13
Phosphorus 5.0 mg/dl (2.5-4.5) H 05/29/25 08:17
Swe-E-Zekebjnmicd Pept > 76262 pg/ml 05/29/25 03:48
Albumin 2.8 g/dl (3.5-5.0) L 06/02/25 07:22
Physical Exam
-
Vital Signs:
Vital Signs
Temp Pulse Resp BP Pulse Ox
98.4 F 75 16 132/50 94
06/04/25 11:00 06/04/25 11:00 06/04/25 11:00 06/04/25 11:00 06/04/25 11:00
Cardiovascular:: Regular rate and rhythm
Respiratory:: Bilateral: CTA (decreased)
Lung Excursion:: Normal
Abdomen:: Nontender and Soft
Bowel Sounds:: Normal
Extremity Edema:: +1: Bilateral:
Ratliff Catheter: No
[2025-06-04 17:08] LABS: Glucose - Point of Care 52 mg/dl (70-99)
[2025-06-04] MEDS: APRESOLINE PO (17:10)
[2025-06-04] MEDS: NOVOLOG FLEXPEN-LOW RESISTANCE SC (17:11)
[2025-06-04 17:25] LABS: Glucose - Point of Care 66 mg/dl (70-99)
[2025-06-04 17:42] LABS: Glucose - Point of Care 67 mg/dl (70-99)
[2025-06-04] MEDS: NOVOLOG FLEXPEN SC (17:46)
[2025-06-04 19:51] VITALS: BP 132/62
[2025-06-04 19:51] LABS: Glucose - Point of Care 227 mg/dl (70-99)
[2025-06-04] MEDS: LIPITOR 40 MG PO (19:57)
[2025-06-04 21:42] LABS: Glucose - Point of Care 271 mg/dl (70-99)
[2025-06-04 23:24] VITALS: BP 161/73
[2025-06-05] VITALS (9 sets, daily range): BP systolic 98–185; BP diastolic 49–87; PULSE 56–935; O2SAT 94; BMI 22.2
[2025-06-05] MEDS: HEPARIN 5000 UNITS SC ×4 (00:29→23:39)
[2025-06-05 03:10] LABS: Glucose - Point of Care 218 mg/dl (70-99)
[2025-06-05] MEDS: SYNTHROID 112 MCG PO (05:38)
[2025-06-05 07:15] LABS: Glucose - Point of Care 165 mg/dl (70-99)
--- NOTE | 2025-06-05 07:37 | PN.DE.MGMTRT ---
Insulin Management
- -
06/05/2025: Diabetes Management Follow up
Patient is 60-year-old male who was brought to the ED by ambulance due to difficulty getting up after sliding to the floor.
PMH: CAD s/p stenting, ICM with CHF EF 35% Diastolic dysfunction, JESSENIA, CKD stage III baseline Cr 2-3, Hypothyroid and IDDM.
Reports 2 days of elevated blood glucose readings, decided not to take his insulin despite the elevations because he had trouble walking to the fridge due to swelling in his feet. Glucose on admission 839, elevated beta hydroxybutyrate to 4.3. pH
was 7.27. Anion gap 14, suggestive of a mixed high anion gap and non-gap acidosis. He was started on HHS-DKA protocol. Prior to admission was taking Farxiga 10 mg daily, Lantus 15 units daily with Humalog AC. A1C on admission 6.2%. States he has
been diabetic for over 10 years. Sees Endocrine associates Dr. Cordero, and uses CGM- Nirmal 3.
Pt is awake, alert, sitting up in chair in NAD, offers no complaints, flat affect, able to discuss diabetes care plan.
Transitioned from insulin infusion on 05/29. Patient's appetite is improving.
Noted for an episode of Hypoglycemia yesterday pre-dinner. Dr. Woodruff reduced AC NovoLog from 10 units to 8 units.
HS glucose was 271, pt received Lantus 19 units, Fasting glucose 184 V, 165 POC this AM.
Will make no changes to current regimen: AC NovoLog 8 units and Lantus 19 units in AM with low corrective insulin.
Farxiga was discontinued due to poor kidney function, Cr 3.9 today
Discussed with Nurse. Will cont to follow
Diabetes History
- -
Type of Diabetes: 2 requiring insulin
Pre-Admission Diabetes Regimen
Insulin Pump Settings
IP Diabetes Regimen
06/04/25 06/04/25 06/04/25
08:32 12:07 17:06
POC Glucose 200 H 173 H 52 L*
06/04/25 06/04/25 06/04/25
17:24 17:40 19:48
POC Glucose 66 L 67 L 227 H
06/04/25 06/05/25 06/05/25
21:41 03:09 07:08
POC Glucose 271 H 218 H 165 H
Meal type: Lunch
Meal type: Breakfast
Amount consumed: 100%
Amount consumed: 100%
Patient Education
[2025-06-05] MEDS: COLACE 100 MG PO ×2 (08:49→20:17)
[2025-06-05] MEDS: PROCARDIA XL (EXTENDED RELEASE) 30 MG PO (08:49)
[2025-06-05] MEDS: ASPIR LOW (ENTERIC COATED) 81 MG PO (08:49)
[2025-06-05] MEDS: APRESOLINE 50 MG PO ×2 (08:49→20:17)
[2025-06-05] MEDS: COREG 12.5 MG PO ×2 (08:49→20:17)
[2025-06-05] MEDS: IMDUR (EXTENDED RELEASE) 30 MG PO (08:50)
[2025-06-05] MEDS: LANTUS 0.19 UNITS SC (08:50)
[2025-06-05] MEDS: MIRALAX 17 GRAMS PO (08:50)
[2025-06-05] MEDS: NOVOLOG FLEXPEN-LOW RESISTANCE 1 UNITS SC (08:50)
[2025-06-05] MEDS: NOVOLOG FLEXPEN 8 UNITS SC ×3 (08:51→17:15)
[2025-06-05 09:20] LABS: Hematocrit 22.8 % (39.0-52.0); Hemoglobin 7.7 g/dL (13.0-18.0); Mean Corp Hgb Conc. 33.8 g/dL (33.0-37.0); Mean Corpuscular Volume 93.8 fL (80.0-94.0); Nucleated Red Blood Cells % 0 % (-); Platelet Count 152 10^3/uL (130-400); Red Cell Dist. Width 15.9 % (11.5-14.5)
[2025-06-05 09:23] LABS: Blood Urea Nitrogen 92 mg/dl (9-20); Calcium 8.1 mg/dl (8.4-10.2); Carbon Dioxide 31 mmol/L (22-30); Chloride 96 mmol/L (98-107); Estimated Creatinine Clearance 19 ml/min; Glucose 145 mg/dl (70-99); Potassium 5.0 mmol/L (3.5-5.1); Sodium 133 mmol/L (135-145); eGFR 16.93
[2025-06-05 11:40] LABS: Glucose - Point of Care 135 mg/dl (70-99)
[2025-06-05] MEDS: NOVOLOG FLEXPEN-LOW RESISTANCE SC ×2 (11:47→16:42)
--- NOTE | 2025-06-05 13:14 | W.PN.HOSP.TC ---
Today's Communication/Plan
-
Decrease hydralazine to twice daily dosing
Trend creatinine
Monitor hemoglobin
Nephrology input
Monitor POC
Assessment / Plan
Assessment / Plan
Gen-AAOx3, NAD
HEENT-NC, AT, anicteric, clear oral mm
Neck-supple
CV-reg, no M, +S1/S2
Lungs-clear B/L
Abd-soft, NT, ND
Ext-improved bilateral lower extremity edema
Musculoskeletal-no cyanosis, clubbing
Skin-warm and dry
Neuro-grossly non-focal
Psych-calm, cooperative
DM2 with hyperglycemia -glucoses overall improved, acidosis resolved. POC 160 5 AM
Transitioned off insulin drip 05/29, continue basal/bolus insulin. Diabetes MANAGER OF CREATIVE SERVICES following. He has a continuous glucose monitor.
Farxiga on hold for JAMAR.
Recent hemoglobin A1c 6.2%, 05/03/2025.
Dr. Cordero, endocrinology, monitors his diabetes.
Continue current dose of Lantus 19 units daily, NovoLog 10 units with meals. Low resistance NovoLog scale.
JAMAR on CKD 4 -likely due to intravascular volume depletion due to osmotic diuresis due to significant hyperglycemia.
Creatinine of 4.3 on presentation, 3.9 again today.
Lasix discontinued by nephrology .
Renal ultrasound with mild increased renal echogenicity suggesting medical renal disease, no calculus or hydronephrosis.
Acute on chronic heart failure with preserved EF
Diuresis on hold. Nephrology following. Goal-directed medical therapy.
BNP greater than 27,000.
Admission chest x-ray with mild to moderate pulmonary edema. Left lower lobe consolidation likely due to atelectasis, clinically doubt pneumonia. Small left pleural effusion.
Echocardiogram shows improvement of LVEF to 52%, previously 35% in February.
Follow-up upon discharge with her primary bowling ball assembler at [facility]
Cardiology signed off
Hyperkalemia I5. Monitor.
Hyponatremia -stable at 133. Fluid restriction.
Essential hypertension - Currently on carvedilol 12.5 mg twice daily, isosorbide mononitrate 30 mg daily, Procardia added 06/02. Decreased hydralazine 50 mg to BID as significant drop in blood pressure noted
Hypothyroidism -TSH 4.0, continue levothyroxine.
Hyperlipidemia -atorvastatin.
Acute on chronic anemia -likely related to CKD. transfused 1 unit of blood 06/03. No evidence of bleeding. Stools are brown. Trend for now.
Acute thrombocytopenia/pancytopenia -unclear etiology. No known history of liver disease. Patient does not see hematology at [place].
Abdominal ultrasound shows small bilateral pleural effusions, minimal amount of ascites, multiple gallbladder polyps. Recommendation for repeat ultrasound to follow-up on the gallbladder in 1 year.
Full code
Dispo -anticipate discharge to acute rehab when medically stable.
Anticipated Discharge: Within 24 hours
Subjective/Interval History
-
Date of Service: June 05, 2025
tolerating diet
no complaints
Received BP meds earlier and afterwards received TT by RN that patient BP dropped.
Objective Data
-
Labs:
Laboratory Results
06/05/25
07:05
WBC 5.5
Hgb 7.7 L
Hct 22.8 L
Plt Count 152 D
Sodium 133 L
Potassium 5.0
Chloride 96 L
Carbon Dioxide 31 H
BUN 92 H
Creatinine 3.9 H
Glucose 145 H
Calcium 8.1 L
Vital Signs:
Vital Signs
Temp Pulse Resp BP Pulse Ox
97.6 F 56 15 99/50 95
06/05/25 11:00 06/05/25 11:00 06/05/25 11:00 06/05/25 11:00 06/05/25 11:00
I&O
06/04/25 06/05/25 06/06/25
06:59 06:59 06:59
Intake Total 1220 / 1220 1295 / 1295
Balance 1220 / 1220 1295 / 1295
Data Reviewed
-
Total Time Spent with Patient (in minutes): 55
--- NOTE | 2025-06-05 14:29 | W.PN.NEPH.PH ---
Today's Communication / Plan
-
reduce hydralazine
Assessment/Plan
-
Assessment
JAMAR
CKD 4
Diabetes mellitus type 2
Hypertension
Edema
Heart failure reduced ejection fraction 35%
To thrive
Hyponatremia
Hyperkalemia
Metabolic acidosis
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
Plan
Follow BMP
Reduce hydralazine back to 50 mg twice daily
For SNF
Last Procrit dose 06/02/2025
Will need to continue Procrit as an outpatient every 2 weeks
No urgent need for diuretics currently
-
-
Date of Service: June 05, 2025
CC / HPI / ROS
-
Chief Complaint:
JAMAR
History of Present Illness:
JAMAR/Cr stable at 3.9
BP stable, low this am
off supplemental O2
Hgb low 7.7
Review of Systems:
no CP/SOB
Nonoliguric
Labs
-
Labs:
WBC 5.5 10^3/uL (4.8-10.8) 06/05/25 07:05
RBC 2.43 10^6/uL (4.70-6.10) L 06/05/25 07:05
Hgb 7.7 g/dL (13.0-18.0) L 06/05/25 07:05
Hct 22.8 % (39.0-52.0) L 06/05/25 07:05
Plt Count 152 10^3/uL (130-400) D 06/05/25 07:05
Sodium 133 mmol/L (135-145) L 06/05/25 07:05
Potassium 5.0 mmol/L (3.5-5.1) 06/05/25 07:05
Chloride 96 mmol/L (98-107) L 06/05/25 07:05
Carbon Dioxide 31 mmol/L (22-30) H 06/05/25 07:05
BUN 92 mg/dl (9-20) H 06/05/25 07:05
Creatinine 3.9 mg/dL (0.7-1.3) H 06/05/25 07:05
eGFR 16.93 06/05/25 07:05
Glucose 145 mg/dl (70-99) H 06/05/25 07:05
Calcium 8.1 mg/dl (8.4-10.2) L 06/05/25 07:05
Phosphorus 5.0 mg/dl (2.5-4.5) H 05/29/25 08:17
His-W-Sjldltiqxah Pept > 67447 pg/ml 05/29/25 03:48
Albumin 2.8 g/dl (3.5-5.0) L 06/02/25 07:22
Physical Exam
-
Vital Signs:
Vital Signs
Temp Pulse Resp BP Pulse Ox
97.6 F 56 15 99/50 95
06/05/25 11:00 06/05/25 11:00 06/05/25 11:00 06/05/25 11:00 06/05/25 11:00
Cardiovascular:: Regular rate and rhythm
Respiratory:: Bilateral: Coarse
Lung Excursion:: Normal
Abdomen:: Nontender and Soft
Bowel Sounds:: Normal
Extremity Edema:: None: Bilateral:
--- NOTE | 2025-06-05 16:18 | CM ---
Weaned off oxygen
PT OT indicate acute rehab .
PMR eval done.
Pt will need auth ath [employer]
PLAN Awaiting [facility] acute rehab determination then auth
[2025-06-05 16:38] LABS: Glucose - Point of Care 71 mg/dl (70-99)
[2025-06-05] MEDS: LIPITOR 40 MG PO (20:17)
[2025-06-05 21:55] LABS: Glucose - Point of Care 111 mg/dl (70-99)
[2025-06-06 03:35] VITALS: BP 152/73
[2025-06-06] MEDS: SYNTHROID 112 MCG PO (05:39)
[2025-06-06 06:00] VITALS: BMI 22.1
[2025-06-06 07:30] LABS: Glucose - Point of Care 59 mg/dl (70-99)
[2025-06-06 07:35] VITALS: BP 126/86
[2025-06-06 07:47] LABS: Glucose - Point of Care 56 mg/dl (70-99)
[2025-06-06] MEDS: DEXTROSE 50% SYRINGE 12.5 GRAMS IV (07:55)
[2025-06-06 08:20] LABS: Glucose - Point of Care 118 mg/dl (70-99)
[2025-06-06] MEDS: NOVOLOG FLEXPEN-LOW RESISTANCE SC (08:29)
--- NOTE | 2025-06-06 08:29 | PN.DE.MGMTRT ---
Insulin Management
- -
06/06/2025: Diabetes Management Follow up
Patient is 60-year-old male who was brought to the ED by ambulance due to difficulty getting up after sliding to the floor.
PMH: CAD s/p stenting, ICM with CHF EF 35% Diastolic dysfunction, JESSENIA, CKD stage III baseline Cr 2-3, Hypothyroid and IDDM.
Reports 2 days of elevated blood glucose readings, decided not to take his insulin despite the elevations because he had trouble walking to the fridge due to swelling in his feet. Glucose on admission 839, elevated beta hydroxybutyrate to 4.3. pH
was 7.27. Anion gap 14, suggestive of a mixed high anion gap and non-gap acidosis. He was started on HHS-DKA protocol. Prior to admission was taking Farxiga 10 mg daily, Lantus 15 units daily with Humalog AC. A1C on admission 6.2%. States he has
been diabetic for over 10 years. Sees Endocrine associates Dr. Cordero, and uses CGM- Nirmal 3.
Pt is awake, alert, sitting up in chair in NAD, offers no complaints, flat affect, able to discuss diabetes care plan.
Transitioned from insulin infusion on 05/29. Patient's appetite is improving.
Patient received 19 units lantus in AM yesterday, glucose 71 pre dinner and 11 @ HS. Fasting glucose this AM 56. Dr. Sigala has reduced lantus to 15 units. Will reduce AC novolog to 6 units with lunch and dinner and continue 8 units with
breakfast, with low corrective insulin.
Farxiga was discontinued due to poor kidney function, Cr 3.9 today
Discussed with Nurse. Will cont to follow
Diabetes History
- -
Type of Diabetes: 2 requiring insulin
Pre-Admission Diabetes Regimen
06/05/25
07:05
Creatinine 3.9 H
Insulin Pump Settings
IP Diabetes Regimen
06/05/25 06/05/25 06/05/25
07:05 11:38 16:34
Glucose 145 H
POC Glucose 135 H 71
06/05/25 06/06/25 06/06/25
21:53 07:25 07:44
Glucose
POC Glucose 111 H 59 L 56 L
06/06/25
08:15
Glucose
POC Glucose 118 H
Meal type: Lunch
Amount consumed: 100%
Patient Education
[2025-06-06 08:54] LABS: Hematocrit 24.7 % (39.0-52.0); Hemoglobin 8.2 g/dL (13.0-18.0); Mean Corp Hgb Conc. 33.2 g/dL (33.0-37.0); Mean Corpuscular Volume 94.6 fL (80.0-94.0); Platelet Count 173 10^3/uL (130-400); Red Cell Dist. Width 16.0 % (11.5-14.5)
[2025-06-06 09:29] LABS: Blood Urea Nitrogen 92 mg/dl (9-20); Calcium 8.3 mg/dl (8.4-10.2); Carbon Dioxide 32 mmol/L (22-30); Chloride 96 mmol/L (98-107); Estimated Creatinine Clearance 18 ml/min; Glucose 40 mg/dl (70-99); Potassium 4.8 mmol/L (3.5-5.1); Sodium 135 mmol/L (135-145); eGFR 15.95
[2025-06-06] MEDS: PROCARDIA XL (EXTENDED RELEASE) 30 MG PO (09:38)
[2025-06-06] MEDS: IMDUR (EXTENDED RELEASE) 30 MG PO (09:38)
[2025-06-06] MEDS: ASPIR LOW (ENTERIC COATED) 81 MG PO (09:39)
[2025-06-06] MEDS: COREG 12.5 MG PO ×2 (09:39→19:44)
[2025-06-06] MEDS: COLACE 100 MG PO ×2 (09:39→19:45)
[2025-06-06] MEDS: APRESOLINE 50 MG PO (09:39)
[2025-06-06] MEDS: HEPARIN 5000 UNITS SC ×3 (09:42→23:10)
[2025-06-06] MEDS: MIRALAX 17 GRAMS PO (09:45)
[2025-06-06 11:20] VITALS: BP 164/70
--- NOTE | 2025-06-06 11:27 | W.PN.HOSP.TC ---
Today's Communication/Plan
-
Reduce insulin and monitor sugars
Monitor blood pressure
Nephro input. Bump in creatinine noted.
Assessment / Plan
Assessment / Plan
Gen-AAOx3, NAD
HEENT-NC, AT, anicteric, clear oral mm
Neck-supple
CV-reg, no M, +S1/S2
Lungs-clear B/L
Abd-soft, NT, ND
Ext-improved bilateral lower extremity edema
Musculoskeletal-no cyanosis, clubbing
Skin-warm and dry
Neuro-grossly non-focal
Psych-calm, cooperative
DM2 with hyperglycemia -glucoses overall improved, acidosis resolved. POC 59-56 status post IV dextrose 118
Transitioned off insulin drip 05/29, continue basal/bolus insulin. Diabetes INTERVENTIONAL RADIOLOGY RN following. He has a continuous glucose monitor.
Farxiga on hold for JAMAR.
Recent hemoglobin A1c 6.2%, 05/03/2025.
Dr. Cordero, endocrinology, monitors his diabetes.
Will need to reduce Lantus 15 units and NovoLog 6 units lunch and dinner and NovoLog 8 units with breakfast
JAMAR on CKD 4 -likely due to intravascular volume depletion due to osmotic diuresis due to significant hyperglycemia.
Creatinine of 4.3 on presentation, bumped to 4.1? Due to blood pressure fluctuation yesterday
Lasix discontinued by nephrology .
Renal ultrasound with mild increased renal echogenicity suggesting medical renal disease, no calculus or hydronephrosis.
Acute on chronic heart failure with preserved EF
Diuresis on hold. Nephrology following. Goal-directed medical therapy.
BNP greater than 27,000.
Admission chest x-ray with mild to moderate pulmonary edema. Left lower lobe consolidation likely due to atelectasis, clinically doubt pneumonia. Small left pleural effusion.
Echocardiogram shows improvement of LVEF to 52%, previously 35% in February.
Follow-up upon discharge with her primary facing slitter at [facility]
Cardiology signed off
Hyperkalemia I5. Monitor.
Hyponatremia -stable at 133. Fluid restriction.
Essential hypertension - Currently on carvedilol 12.5 mg twice daily, isosorbide mononitrate 30 mg daily, Procardia added 06/02. Decreased hydralazine 50 mg to BID as significant drop in blood pressure noted and patient was symptomatic. Monitor
currently.
Hypothyroidism -TSH 4.0, continue levothyroxine.
Hyperlipidemia -atorvastatin.
Acute on chronic anemia -likely related to CKD. transfused 1 unit of blood 06/03. No evidence of bleeding. Stools are brown. Trend for now.
Acute thrombocytopenia/pancytopenia -unclear etiology. No known history of liver disease. Patient does not see hematology at [facility].
Abdominal ultrasound shows small bilateral pleural effusions, minimal amount of ascites, multiple gallbladder polyps. Recommendation for repeat ultrasound to follow-up on the gallbladder in 1 year.
Full code
Dispo -anticipate discharge to acute rehab when medically stable.
Anticipated Discharge: 24 - 48 hours
Subjective/Interval History
-
Date of Service: June 06, 2025
States he ate well last night
Episode of hypoglycemia earlier this morning which required IV dextrose
Patient was asymptomatic
Objective Data
-
Labs:
Laboratory Results
06/06/25
07:42
WBC 5.9
Hgb 8.2 L
Hct 24.7 L
Plt Count 173
Sodium 135
Potassium 4.8
Chloride 96 L
Carbon Dioxide 32 H
BUN 92 H
Creatinine 4.1 H*
Glucose 40 L*
Calcium 8.3 L
Vital Signs:
Vital Signs
Temp Pulse Resp BP Pulse Ox
97.5 F 73 16 164/70 97
06/06/25 11:20 06/06/25 11:20 06/06/25 11:20 06/06/25 11:20 06/06/25 11:20
I&O
06/05/25 06/06/25 06/07/25
06:59 06:59 06:59
Intake Total 1295 / 1295 900 / 900
Balance 1295 / 1295 900 / 900
Data Reviewed
-
Total Time Spent with Patient (in minutes): 55
[2025-06-06 11:48] LABS: Glucose - Point of Care 344 mg/dl (70-99)
[2025-06-06] MEDS: LANTUS SC (12:00)
[2025-06-06] MEDS: NOVOLOG FLEXPEN SC (12:00)
[2025-06-06] MEDS: NOVOLOG FLEXPEN-LOW RESISTANCE 4 UNITS SC (12:40)
[2025-06-06] MEDS: NOVOLOG FLEXPEN 6 UNITS SC ×2 (12:41→17:20)
--- NOTE | 2025-06-06 14:11 | W.PN.NEPH.PH ---
Today's Communication / Plan
-
follow BMP
Assessment/Plan
-
Assessment
JAMAR
CKD 4
Diabetes mellitus type 2
Hypertension
Edema
Heart failure reduced ejection fraction 35%
To thrive
Hyponatremia
Hyperkalemia
Metabolic acidosis
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
Plan
Follow BMP, overall stable
For SNF
Last Procrit dose 06/02/2025
Will need to continue Procrit as an outpatient every 2 weeks
No urgent need for diuretics currently
-
-
Date of Service: June 06, 2025
CC / HPI / ROS
-
Chief Complaint:
JAMAR
History of Present Illness:
JAMAR/Cr stable at 4.1
BP stable, high
off supplemental O2
Hgb up to 8.2
Review of Systems:
no CP/SOB
Nonoliguric
Labs
-
Labs:
WBC 5.9 10^3/uL (4.8-10.8) 06/06/25 07:42
RBC 2.61 10^6/uL (4.70-6.10) L 06/06/25 07:42
Hgb 8.2 g/dL (13.0-18.0) L 06/06/25 07:42
Hct 24.7 % (39.0-52.0) L 06/06/25 07:42
Plt Count 173 10^3/uL (130-400) 06/06/25 07:42
Sodium 135 mmol/L (135-145) 06/06/25 07:42
Potassium 4.8 mmol/L (3.5-5.1) 06/06/25 07:42
Chloride 96 mmol/L (98-107) L 06/06/25 07:42
Carbon Dioxide 32 mmol/L (22-30) H 06/06/25 07:42
BUN 92 mg/dl (9-20) H 06/06/25 07:42
Creatinine 4.1 mg/dL (0.7-1.3) H* 06/06/25 07:42
eGFR 15.95 06/06/25 07:42
Glucose 40 mg/dl (70-99) L* 06/06/25 07:42
Calcium 8.3 mg/dl (8.4-10.2) L 06/06/25 07:42
Phosphorus 5.0 mg/dl (2.5-4.5) H 05/29/25 08:17
Yzq-V-Upuwovnaasd Pept > 65811 pg/ml 05/29/25 03:48
Albumin 2.8 g/dl (3.5-5.0) L 06/02/25 07:22
Physical Exam
-
Vital Signs:
Vital Signs
Temp Pulse Resp BP Pulse Ox
97.5 F 73 16 164/70 97
06/06/25 11:20 06/06/25 11:20 06/06/25 11:20 06/06/25 11:20 06/06/25 11:20
Cardiovascular:: Regular rate and rhythm
Respiratory:: Bilateral: Coarse
Lung Excursion:: Normal
Abdomen:: Nontender and Soft
Bowel Sounds:: Normal
Extremity Edema:: None: Bilateral:
[2025-06-06 15:34] VITALS: BP 116/50
[2025-06-06 16:43] LABS: Glucose - Point of Care 288 mg/dl (70-99)
[2025-06-06] MEDS: NOVOLOG FLEXPEN-LOW RESISTANCE 3 UNITS SC (17:19)
[2025-06-06 19:36] VITALS: BP 107/50
[2025-06-06] MEDS: APRESOLINE PO (19:38)
[2025-06-06] MEDS: LIPITOR 40 MG PO (19:45)
[2025-06-06 21:33] LABS: Glucose - Point of Care 267 mg/dl (70-99)
[2025-06-06 23:10] VITALS: BP 158/73
[2025-06-07] VITALS (7 sets, daily range): BP systolic 119–178; BP diastolic 58–82; PULSE 66–72; O2SAT 95–98; BMI 22.4
[2025-06-07 03:02] LABS: Glucose - Point of Care 294 mg/dl (70-99)
[2025-06-07] MEDS: SYNTHROID 112 MCG PO (05:24)
[2025-06-07 06:58] LABS: Glucose - Point of Care 317 mg/dl (70-99)
--- NOTE | 2025-06-07 08:11 | PN.DE.MGMTRT ---
Insulin Management
- -
06/07/2025: Diabetes Management Follow up
Patient is 60-year-old male who was brought to the ED by ambulance due to difficulty getting up after sliding to the floor.
PMH: CAD s/p stenting, ICM with CHF EF 35% Diastolic dysfunction, JESSENIA, CKD stage III baseline Cr 2-3, Hypothyroid and IDDM.
Reports 2 days of elevated blood glucose readings, decided not to take his insulin despite the elevations because he had trouble walking to the fridge due to swelling in his feet. Glucose on admission 839, elevated beta hydroxybutyrate to 4.3. pH
was 7.27. Anion gap 14, suggestive of a mixed high anion gap and non-gap acidosis. He was started on HHS-DKA protocol. Prior to admission was taking Farxiga 10 mg daily, Lantus 15 units daily with Humalog AC. A1C on admission 6.2%. States he has
been diabetic for over 10 years. Sees Endocrine associates Dr. Cordero, and uses CGM- Nirmal 3.
Pt is awake, alert, sitting up in chair in NAD, offers no complaints, flat affect, able to discuss diabetes care plan.
Transitioned from insulin infusion on 05/29. Patient's appetite is improving.
Patient received *NO lantus in AM yesterday, *NO novolog at breakfast, glucose pre lunch 344, pre dinner 288 and 267 @ HS. Fasting glucose this AM 317.
Patient should receive reduced dose of lantus, 15 units this AM. Novolog ordered 8 units with breakfast and 6 units with lunch and dinner with low corrective insulin.
Discussed with Nurse. Will cont to follow
Diabetes History
- -
Type of Diabetes: 2 requiring insulin
Pre-Admission Diabetes Regimen
06/06/25
07:42
Creatinine 4.1 H*
Insulin Pump Settings
IP Diabetes Regimen
06/06/25 06/06/25 06/06/25
07:42 08:15 11:44
Glucose 40 L*
POC Glucose 118 H 344 H
06/06/25 06/06/25 06/07/25
16:39 21:32 03:01
Glucose
POC Glucose 288 H 267 H 294 H
06/07/25
06:56
Glucose
POC Glucose 317 H
Meal type: Lunch
Amount consumed: 100%
Patient Education
[2025-06-07 08:12] LABS: Hematocrit 23.5 % (39.0-52.0); Hemoglobin 7.7 g/dL (13.0-18.0); Mean Corp Hgb Conc. 32.8 g/dL (33.0-37.0); Mean Corpuscular Volume 95.5 fL (80.0-94.0); Platelet Count 181 10^3/uL (130-400); Red Cell Dist. Width 16.3 % (11.5-14.5)
[2025-06-07 08:49] LABS: Blood Urea Nitrogen 102 mg/dl (9-20); Calcium 8.1 mg/dl (8.4-10.2); Carbon Dioxide 30 mmol/L (22-30); Chloride 97 mmol/L (98-107); Estimated Creatinine Clearance 19 ml/min; Glucose 287 mg/dl (70-99); Potassium 5.3 mmol/L (3.5-5.1); Sodium 133 mmol/L (135-145); eGFR 16.43
[2025-06-07] MEDS: APRESOLINE 50 MG PO ×2 (09:49→20:32)
[2025-06-07] MEDS: IMDUR (EXTENDED RELEASE) 30 MG PO (09:50)
[2025-06-07] MEDS: HEPARIN 5000 UNITS SC ×3 (09:50→23:41)
[2025-06-07] MEDS: PROCARDIA XL (EXTENDED RELEASE) 30 MG PO (09:50)
[2025-06-07] MEDS: COREG 12.5 MG PO ×2 (09:50→20:33)
[2025-06-07] MEDS: COLACE 100 MG PO ×2 (09:50→20:32)
[2025-06-07] MEDS: ASPIR LOW (ENTERIC COATED) 81 MG PO (09:50)
[2025-06-07] MEDS: NOVOLOG FLEXPEN-LOW RESISTANCE 4 UNITS SC (09:52)
[2025-06-07] MEDS: NOVOLOG FLEXPEN 8 UNITS SC (09:53)
[2025-06-07] MEDS: LANTUS 0.15 UNITS SC (09:54)
[2025-06-07] MEDS: MIRALAX PO (10:05)
--- NOTE | 2025-06-07 11:37 | W.PN.HOSP.TC ---
Today's Communication/Plan
-
nephro input
monitor POC
diuretics held
monitor BP
Assessment / Plan
Assessment / Plan
Gen-AAOx3, NAD
HEENT-NC, AT, anicteric, clear oral mm
Neck-supple
CV-reg, no M, +S1/S2
Lungs-clear B/L
Abd-soft, NT, ND
Ext-improved bilateral lower extremity edema
Musculoskeletal-no cyanosis, clubbing
Skin-warm and dry
Neuro-grossly non-focal
Psych-calm, cooperative
DM2 with hyperglycemia -glucoses overall improved, acidosis resolved. POC 59-56 status post IV dextrose 118
Transitioned off insulin drip 05/29, continue basal/bolus insulin. Diabetes LEAD SHAREPOINT DEVELOPER following. He has a continuous glucose monitor.
Farxiga on hold for JAMAR.
Recent hemoglobin A1c 6.2%, 05/03/2025.
Dr. Cordero, endocrinology, monitors his diabetes.
Will need to reduce Lantus 15 units and NovoLog 6 units lunch and dinner and NovoLog 8 units with breakfast.
JAMAR on CKD 4 -likely due to intravascular volume depletion due to osmotic diuresis due to significant hyperglycemia.
Creatinine of 4.3 on presentation. Now at 4. BUMP in BUN noted.
Lasix discontinued by nephrology .
Renal ultrasound with mild increased renal echogenicity suggesting medical renal disease, no calculus or hydronephrosis.
Acute on chronic heart failure with preserved EF
Diuresis on hold. Nephrology following. Goal-directed medical therapy.
BNP greater than 27,000.
Admission chest x-ray with mild to moderate pulmonary edema. Left lower lobe consolidation likely due to atelectasis, clinically doubt pneumonia. Small left pleural effusion.
Echocardiogram shows improvement of LVEF to 52%, previously 35% in February.
Follow-up upon discharge with her primary warehouse logistics manager at [facility]
Cardiology signed off
Hyperkalemia I5. Monitor.
Hyponatremia -stable at 133. Fluid restriction.
Essential hypertension - Currently on carvedilol 12.5 mg twice daily, isosorbide mononitrate 30 mg daily, Procardia added 06/02. Decreased hydralazine 50 mg to BID as significant drop in blood pressure noted and patient was symptomatic. Monitor
currently. May need to increase bp meds. No further drop in BP noted.
Hypothyroidism -TSH 4.0, continue levothyroxine.
Hyperlipidemia -atorvastatin.
Acute on chronic anemia -likely related to CKD. transfused 1 unit of blood 06/03. No evidence of bleeding. Trend for now.
Acute thrombocytopenia/pancytopenia -unclear etiology. No known history of liver disease. Patient does not see hematology at [facility].
Abdominal ultrasound shows small bilateral pleural effusions, minimal amount of ascites, multiple gallbladder polyps. Recommendation for repeat ultrasound to follow-up on the gallbladder in 1 year.
Full code
Dispo -anticipate discharge to acute rehab when medically stable.
Anticipated Discharge: 24 - 48 hours
Subjective/Interval History
-
Date of Service: June 07, 2025
no overnight events
poc elevated
denies any complaints. No chest pain shortness of breath headache.
Objective Data
-
Labs:
Laboratory Results
06/07/25
07:07
WBC 4.8
Hgb 7.7 L
Hct 23.5 L
Plt Count 181
Sodium 133 L
Potassium 5.3 H
Chloride 97 L
Carbon Dioxide 30
BUN 102 H*
Creatinine 4.0 H
Glucose 287 H
Calcium 8.1 L
Vital Signs:
Vital Signs
Temp Pulse Resp BP Pulse Ox
98.2 F 75 16 157/73 98
06/07/25 08:00 06/07/25 09:50 06/07/25 08:00 06/07/25 09:50 06/07/25 09:48
I&O
06/06/25 06/07/25 06/08/25
06:59 06:59 06:59
Intake Total 900 / 900 960 / 960
Balance 900 / 900 960 / 960
[2025-06-07 11:43] LABS: Glucose - Point of Care 382 mg/dl (70-99)
[2025-06-07] MEDS: NOVOLOG FLEXPEN 6 UNITS SC ×2 (13:05→18:03)
[2025-06-07] MEDS: NOVOLOG FLEXPEN-LOW RESISTANCE 5 UNITS SC (13:05)
--- NOTE | 2025-06-07 13:45 | CM ---
Nephrology involved.
PT OT indicate acute rehab .
PMR eval done.
Pt will need auth ath [employer]
PLAN Awaiting [facility] acute rehab determination then auth
--- NOTE | 2025-06-07 15:43 | W.PN.NEPH.PH ---
Today's Communication / Plan
-
check bladder scan, FEna, LOkelam x1
Assessment/Plan
-
Assessment
JAMAR
CKD 4
Diabetes mellitus type 2
Hypertension
Edema
Heart failure reduced ejection fraction 35%
To thrive
Hyponatremia
Hyperkalemia
Metabolic acidosis
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
Plan
JAMAR-cr no change but increasing azotemia
check Fena, bladder scan, holding lasix still
wt is up but stable resp status on RA supine
monitor h/h, low at 7.7, Last Procrit dose 06/02/2025
Will need to continue Procrit as an outpatient every 2 weeks
No urgent need of ENERGY PROJECT MANAGER, d/w pt that he will need access preparation soon
mild hyperkalemia-lokelma
stable hyponatremia
for SNF
-
-
Date of Service: June 07, 2025
CC / HPI / ROS
-
Chief Complaint:
JAMAR
History of Present Illness:
JAMAR/Cr stable at 4., BUN
BP stable,
Hgb low at 7.7
Review of Systems:
no CP/SOB
Nonoliguric
Labs
-
Labs:
WBC 4.8 10^3/uL (4.8-10.8) 06/07/25 07:07
RBC 2.46 10^6/uL (4.70-6.10) L 06/07/25 07:07
Hgb 7.7 g/dL (13.0-18.0) L 06/07/25 07:07
Hct 23.5 % (39.0-52.0) L 06/07/25 07:07
Plt Count 181 10^3/uL (130-400) 06/07/25 07:07
Sodium 133 mmol/L (135-145) L 06/07/25 07:07
Potassium 5.3 mmol/L (3.5-5.1) H 06/07/25 07:07
Chloride 97 mmol/L (98-107) L 06/07/25 07:07
Carbon Dioxide 30 mmol/L (22-30) 06/07/25 07:07
BUN 102 mg/dl (9-20) H* 06/07/25 07:07
Creatinine 4.0 mg/dL (0.7-1.3) H 06/07/25 07:07
eGFR 16.43 06/07/25 07:07
Glucose 287 mg/dl (70-99) H 06/07/25 07:07
Calcium 8.1 mg/dl (8.4-10.2) L 06/07/25 07:07
Phosphorus 5.0 mg/dl (2.5-4.5) H 05/29/25 08:17
Ahr-E-Rntdooxsgnu Pept > 29590 pg/ml 05/29/25 03:48
Albumin 2.8 g/dl (3.5-5.0) L 06/02/25 07:22
Physical Exam
-
Vital Signs:
Vital Signs
Temp Pulse Resp BP Pulse Ox
97.7 F 73 16 126/61 90
06/07/25 11:00 06/07/25 11:00 06/07/25 11:00 06/07/25 11:00 06/07/25 11:00
Cardiovascular:: Regular rate and rhythm
Respiratory:: Bilateral: CTA
Lung Excursion:: Normal
Abdomen:: Nontender and Soft
Bowel Sounds:: Normal
Extremity Edema:: None: Bilateral:
Ratliff Catheter: No
[2025-06-07] MEDS: LOKELMA 10 GRAM PO (16:35)
--- NOTE | 2025-06-07 16:39 | PTCARENOTE ---
Pt AAO x3, TABOR; OOB to chair/ambulatory to BR with assist x1/walker, denies weakness/dizziness; sl unsteady w/OOB activity. VSS. On room air- pulseox 92%, no SOB noted. Abd large, soft, josue PO well. Voiding in BR/urinal; aware of need for urine
sample. Pale; afebrile; skin warm and dry. Resting in bed at present, no c/o. Will continue to monitor.
[2025-06-07 16:49] LABS: Glucose - Point of Care 292 mg/dl (70-99)
[2025-06-07] MEDS: NOVOLOG FLEXPEN-LOW RESISTANCE 3 UNITS SC (18:04)
[2025-06-07] MEDS: LIPITOR 40 MG PO (20:32)
[2025-06-07 21:11] LABS: Glucose - Point of Care 291 mg/dl (70-99)
[2025-06-08] MEDS: SYNTHROID 112 MCG PO (05:09)
[2025-06-08 05:58] VITALS: BMI 22.7
--- NOTE | 2025-06-08 07:26 | W.PN.HOSP.TC ---
Today's Communication/Plan
-
Increase hydralazine
monitor BP
monitor poc
nephro recs
Remains with severe azotemia
Assessment / Plan
Assessment / Plan
Gen-AAOx3, NAD
HEENT-NC, AT, anicteric, clear oral mm
Neck-supple
CV-reg, no M, +S1/S2
Lungs-clear B/L
Abd-soft, NT, ND
Ext-improved bilateral lower extremity edema
Musculoskeletal-no cyanosis, clubbing
Skin-warm and dry
Neuro-grossly non-focal
Psych-calm, cooperative
DM2 with hyperglycemia
Transitioned off insulin drip 05/29, continue basal/bolus insulin. Diabetes THERAPEUTIC PROGRAM WORKER following. He has a continuous glucose monitor.
Farxiga on hold for JAMAR.
Recent hemoglobin A1c 6.2%, 05/03/2025.
Dr. Cordero, endocrinology, monitors his diabetes.
Currently on Lantus 15 units and NovoLog 6 units lunch and dinner and NovoLog 8 units with breakfast.
POC am 278
JAMAR on CKD 4 -likely due to intravascular volume depletion due to osmotic diuresis due to significant hyperglycemia.
Creatinine of 4.3 on presentation. Now at 4 .
FENA from yesterday wtih pre-renal etiology.
Lasix discontinued by nephrology. Wt is up midly.
Remains with azotemia
Renal ultrasound with mild increased renal echogenicity suggesting medical renal disease, no calculus or hydronephrosis.
Acute on chronic heart failure with preserved EF
Diuresis on hold. Nephrology following. Goal-directed medical therapy.
BNP greater than 27,000.
Admission chest x-ray with mild to moderate pulmonary edema. Left lower lobe consolidation likely due to atelectasis, clinically doubt pneumonia. Small left pleural effusion.
Echocardiogram shows improvement of LVEF to 52%, previously 35% in February.
Follow-up upon discharge with her primary transport driver at [facility]
Cardiology signed off
Hyperkalemia s/p lokelma. K improved.
Hyponatremia -stable at 134. Fluid restriction.
Essential hypertension - Currently on carvedilol 12.5 mg twice daily, isosorbide mononitrate 30 mg daily, Procardia added 06/02. Cont hydralazine 50mg am and increase hydralazine 75 qpm.
Hypothyroidism -TSH 4.0, continue levothyroxine.
Hyperlipidemia -atorvastatin.
Acute on chronic anemia -likely related to CKD. transfused 1 unit of blood 06/03. No evidence of bleeding. EPO per nephrology. Trend for now.
Acute thrombocytopenia/pancytopenia -unclear etiology. No known history of liver disease. Patient does not see hematology at [facility]. Platelets improved.
Abdominal ultrasound shows small bilateral pleural effusions, minimal amount of ascites, multiple gallbladder polyps. Recommendation for repeat ultrasound to follow-up on the gallbladder in 1 year.
Full code
Dispo -anticipate discharge to acute rehab when medically stable.
Anticipated Discharge: 24 - 48 hours
Subjective/Interval History
-
Date of Service: June 08, 2025
Bp running high now
toleraing diet
no complaints
Objective Data
-
Labs:
Laboratory Results
06/08/25
07:25
WBC Pending
Hgb Pending
Hct Pending
Plt Count Pending
Sodium Pending
Potassium Pending
Chloride Pending
Carbon Dioxide Pending
BUN Pending
Creatinine Pending
Glucose Pending
Calcium Pending
Vital Signs:
Vital Signs
Temp Pulse Resp BP Pulse Ox
97.6 F 68 18 166/82 93
06/07/25 23:08 06/07/25 23:08 06/07/25 23:08 06/07/25 23:08 06/07/25 23:08
I&O
06/07/25 06/08/25 06/09/25
06:59 06:59 06:59
Intake Total 960 / 960 960 / 960
Output Total 200 / 200
Balance 960 / 960 760 / 760
[2025-06-08 07:41] VITALS: BP 189/92
[2025-06-08 07:45] VITALS: BP 176/82
--- NOTE | 2025-06-08 08:08 | PN.DE.MGMTRT ---
Insulin Management
- -
06/08/2025: Diabetes Management Follow up
Patient is 60-year-old male who was brought to the ED by ambulance due to difficulty getting up after sliding to the floor.
PMH: CAD s/p stenting, ICM with CHF EF 35% Diastolic dysfunction, JESSENIA, CKD stage III baseline Cr 2-3, Hypothyroid and IDDM.
Reports 2 days of elevated blood glucose readings, decided not to take his insulin despite the elevations because he had trouble walking to the fridge due to swelling in his feet. Glucose on admission 839, elevated beta hydroxybutyrate to 4.3. pH
was 7.27. Anion gap 14, suggestive of a mixed high anion gap and non-gap acidosis. He was started on HHS-DKA protocol. Prior to admission was taking Farxiga 10 mg daily, Lantus 15 units daily with Humalog AC. A1C on admission 6.2%. States he has
been diabetic for over 10 years. Sees Endocrine associates Dr. Cordero, and uses CGM- Nirmal 3.
Pt is awake, alert, sitting up in chair in NAD, offers no complaints, flat affect, able to discuss diabetes care plan.
Transitioned from insulin infusion on 05/29. Patient's appetite is improving.
Patient received *NO lantus in AM 06/06, *NO novolog at breakfast, glucose pre lunch 344, pre dinner 288 and 267 @ HS. Glucose 06/07 291 to 382. Patient did receive lantus 15 units in AM yesterday but glucose remained elevated.
Fasting glucose today 278.
Patient should receive reduced dose of lantus, 15 units this AM. Novolog ordered 8 units with breakfast and 6 units with lunch and dinner with low corrective insulin.
Discussed with Nurse. Will cont to follow
Diabetes History
- -
Type of Diabetes: 2 requiring insulin
Pre-Admission Diabetes Regimen
06/07/25
07:07
Creatinine 4.0 H
Insulin Pump Settings
IP Diabetes Regimen
06/07/25 06/07/25 06/07/25
07:07 11:42 16:47
Glucose 287 H
POC Glucose 382 H 292 H
06/07/25
21:09
Glucose
POC Glucose 291 H
Meal type: Dinner
Meal type: Lunch
Meal type: Breakfast
Amount consumed: 100%
Amount consumed: 100%
Amount consumed: 100%
Patient Education
[2025-06-08 08:15] LABS: Glucose - Point of Care 278 mg/dl (70-99)
[2025-06-08] MEDS: NOVOLOG FLEXPEN 8 UNITS SC (08:27)
[2025-06-08] MEDS: NOVOLOG FLEXPEN-LOW RESISTANCE 3 UNITS SC ×2 (08:27→12:36)
[2025-06-08] MEDS: ASPIR LOW (ENTERIC COATED) 81 MG PO (08:28)
[2025-06-08] MEDS: IMDUR (EXTENDED RELEASE) 30 MG PO (08:29)
[2025-06-08] MEDS: PROCARDIA XL (EXTENDED RELEASE) 30 MG PO (08:29)
[2025-06-08] MEDS: HEPARIN 5000 UNITS SC ×3 (08:30→23:01)
[2025-06-08] MEDS: APRESOLINE 50 MG PO (08:33)
[2025-06-08] MEDS: COREG 12.5 MG PO ×2 (08:35→20:10)
[2025-06-08] MEDS: COLACE 100 MG PO ×2 (08:38→20:10)
[2025-06-08] MEDS: MIRALAX 17 GRAMS PO (08:38)
[2025-06-08] MEDS: LANTUS 0.15 UNITS SC (08:39)
[2025-06-08 08:47] LABS: Hematocrit 25.2 % (39.0-52.0); Hemoglobin 8.1 g/dL (13.0-18.0); Mean Corp Hgb Conc. 32.1 g/dL (33.0-37.0); Mean Corpuscular Volume 99.2 fL (80.0-94.0); Nucleated Red Blood Cells % 0 % (-); Platelet Count 198 10^3/uL (130-400); Red Cell Dist. Width 16.1 % (11.5-14.5)
[2025-06-08 08:48] LABS: Blood Urea Nitrogen 101 mg/dl (9-20); Calcium 8.6 mg/dl (8.4-10.2); Carbon Dioxide 29 mmol/L (22-30); Chloride 98 mmol/L (98-107); Estimated Creatinine Clearance 19 ml/min; Glucose 266 mg/dl (70-99); Potassium 5.1 mmol/L (3.5-5.1); Sodium 134 mmol/L (135-145); eGFR 16.43
[2025-06-08 12:16] LABS: Glucose - Point of Care 260 mg/dl (70-99)
[2025-06-08] MEDS: NOVOLOG FLEXPEN 6 UNITS SC ×2 (12:36→17:30)
[2025-06-08 15:50] VITALS: BP 121/59
--- NOTE | 2025-06-08 16:42 | CM ---
Nephrology involved.
PT OT indicate acute rehab .
Spoke with [facility] available Will need auth [employer]
PMR eval done.
PLAN Awaiting [facility] acute rehab determination then auth
[2025-06-08 16:43] LABS: Glucose - Point of Care 126 mg/dl (70-99)
[2025-06-08] MEDS: NOVOLOG FLEXPEN-LOW RESISTANCE SC (17:29)
--- NOTE | 2025-06-08 17:34 | W.PN.NEPH.PH ---
Today's Communication / Plan
-
resume torsemide
Assessment/Plan
-
Assessment
JAMAR
CKD 4
Diabetes mellitus type 2
Hypertension
Edema
Heart failure reduced ejection fraction 35%
To thrive
Hyponatremia
Hyperkalemia
Metabolic acidosis
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
Plan
JAMAR-cr no change but persistent azotemia
Low Fena, follow bladder scan
likely resume home torsemide 20mg as wt up
stable resp status on RA supine
monitor h/h, low at 8, Last Procrit dose 06/02/2025
Will need to continue Procrit as an outpatient every 2 weeks
No urgent need of COMPENSATION ADJUSTER, d/w pt that he will need access preparation soon
mild hyperkalemia-low k diet, prn Lokelma
stable hyponatremia
for SNF
-
-
Date of Service: June 08, 2025
CC / HPI / ROS
-
Chief Complaint:
JAMAR
History of Present Illness:
JAMAR/Cr stable at 4., BUN 101
BP stable, k 5.1 better
Hgb low at 8.1
Review of Systems:
no CP/SOB
Nonoliguric
Labs
-
Labs:
WBC 4.7 10^3/uL (4.8-10.8) L 06/08/25 08:25
RBC 2.54 10^6/uL (4.70-6.10) L 06/08/25 08:25
Hgb 8.1 g/dL (13.0-18.0) L 06/08/25 08:25
Hct 25.2 % (39.0-52.0) L 06/08/25 08:25
Plt Count 198 10^3/uL (130-400) 06/08/25 08:25
Sodium 134 mmol/L (135-145) L 06/08/25 08:25
Potassium 5.1 mmol/L (3.5-5.1) 06/08/25 08:25
Chloride 98 mmol/L (98-107) 06/08/25 08:25
Carbon Dioxide 29 mmol/L (22-30) 06/08/25 08:25
BUN 101 mg/dl (9-20) H* 06/08/25 08:25
Creatinine 4.0 mg/dL (0.7-1.3) H 06/08/25 08:25
eGFR 16.43 06/08/25 08:25
Glucose 266 mg/dl (70-99) H 06/08/25 08:25
Calcium 8.6 mg/dl (8.4-10.2) 06/08/25 08:25
Phosphorus 5.0 mg/dl (2.5-4.5) H 05/29/25 08:17
Zga-S-Ygogjtaadyl Pept > 98861 pg/ml 05/29/25 03:48
Albumin 2.8 g/dl (3.5-5.0) L 06/02/25 07:22
Physical Exam
-
Vital Signs:
Vital Signs
Temp Pulse Resp BP Pulse Ox
97.4 F 56 16 121/59 94
06/08/25 15:50 06/08/25 15:50 06/08/25 15:50 06/08/25 15:50 06/08/25 15:50
Cardiovascular:: Regular rate and rhythm
Respiratory:: Bilateral: CTA
Lung Excursion:: Normal
Abdomen:: Nontender and Soft
Bowel Sounds:: Normal
Extremity Edema:: +1: Bilateral:
Ratliff Catheter: No
[2025-06-08] MEDS: DEMADEX 20 MG PO (17:49)
[2025-06-08] MEDS: APRESOLINE 75 MG PO (17:49)
[2025-06-08] MEDS: LIPITOR 40 MG PO (20:10)
[2025-06-08 21:20] LABS: Glucose - Point of Care 104 mg/dl (70-99)
[2025-06-08 23:03] VITALS: BP 143/76
[2025-06-09] MEDS: SYNTHROID 112 MCG PO (05:53)
[2025-06-09 06:00] VITALS: BMI 22.9
[2025-06-09 06:45] VITALS: BP 187/95
[2025-06-09 07:12] LABS: Hematocrit 23.5 % (39.0-52.0); Hemoglobin 7.9 g/dL (13.0-18.0); Mean Corp Hgb Conc. 33.6 g/dL (33.0-37.0); Mean Corpuscular Volume 95.5 fL (80.0-94.0); Nucleated Red Blood Cells % 0 % (-); Platelet Count 203 10^3/uL (130-400); Red Cell Dist. Width 16.2 % (11.5-14.5)
[2025-06-09 07:33] LABS: Glucose - Point of Care 335 mg/dl (70-99)
[2025-06-09 07:47] LABS: Blood Urea Nitrogen 105 mg/dl (9-20); Calcium 8.3 mg/dl (8.4-10.2); Carbon Dioxide 29 mmol/L (22-30); Chloride 95 mmol/L (98-107); Estimated Creatinine Clearance 21 ml/min; Glucose 288 mg/dl (70-99); Potassium 5.1 mmol/L (3.5-5.1); Sodium 133 mmol/L (135-145); eGFR 18.04
--- NOTE | 2025-06-09 08:11 | PN.DE.MGMTRT ---
Insulin Management
- -
06/09/2025: Diabetes Management Follow up
Patient is 60-year-old male who was brought to the ED by ambulance due to difficulty getting up after sliding to the floor.
PMH: CAD s/p stenting, ICM with CHF EF 35% Diastolic dysfunction, JESSENIA, CKD stage III baseline Cr 2-3, Hypothyroid and IDDM.
Reports 2 days of elevated blood glucose readings, decided not to take his insulin despite the elevations because he had trouble walking to the fridge due to swelling in his feet. Glucose on admission 839, elevated beta hydroxybutyrate to 4.3. pH
was 7.27. Anion gap 14, suggestive of a mixed high anion gap and non-gap acidosis. He was started on HHS-DKA protocol. Prior to admission was taking Farxiga 10 mg daily, Lantus 15 units daily with Humalog AC. A1C on admission 6.2%. States he has
been diabetic for over 10 years. Sees Endocrine associates Dr. Cordero, and uses CGM- Nirmal 3.
Pt is awake, alert, sitting up in chair in NAD, offers no complaints, flat affect, able to discuss diabetes care plan.
Transitioned from insulin infusion on 05/29. Patient's appetite is improving.
06/08 Premeal glucose 126 to 278, HS 104, fasting 288 V, 335 POC this AM. Pre-lunch glucose is 301, required corrective insulin at breakfast and lunch today.
Will increase AC NovoLog 10 units with breakfast and 8 units with lunch and dinner with low corrective insulin.
Cont Lantus 15 units in AM. Discussed with Nurse. Will cont to follow
Diabetes History
- -
Type of Diabetes: 2 requiring insulin
Pre-Admission Diabetes Regimen
06/08/25 06/09/25
08: 06:16
Creatinine 4.0 H 3.7 H
Insulin Pump Settings
IP Diabetes Regimen
06/08/25 06/08/25 06/08/25
08:13 08:25 12:15
Glucose 266 H
POC Glucose 278 H 260 H
06/08/25 06/08/25 06/09/25
16:42 21:18 06:16
Glucose 288 H
POC Glucose 126 H 104 H
06/09/25
07:32
Glucose
POC Glucose 335 H
Meal type: Lunch
Meal type: Breakfast
Amount consumed: 100%
Amount consumed: 100%
Patient Education
[2025-06-09] MEDS: COLACE PO ×2 (08:24→20:47)
[2025-06-09] MEDS: MIRALAX PO (08:25)
[2025-06-09] MEDS: NOVOLOG FLEXPEN 8 UNITS SC ×2 (08:26→17:45)
[2025-06-09] MEDS: NOVOLOG FLEXPEN-LOW RESISTANCE 4 UNITS SC ×2 (08:27→12:40)
[2025-06-09] MEDS: HEPARIN 5000 UNITS SC ×3 (08:28→23:05)
[2025-06-09] MEDS: LANTUS 0.15 UNITS SC (08:28)
[2025-06-09] MEDS: DEMADEX 20 MG PO (08:29)
[2025-06-09] MEDS: COREG 12.5 MG PO ×2 (08:29→20:47)
[2025-06-09] MEDS: ASPIR LOW (ENTERIC COATED) 81 MG PO (08:30)
[2025-06-09] MEDS: FLUSH (NSS) 1 FLUSH IV (08:30)
[2025-06-09] MEDS: PROCARDIA XL (EXTENDED RELEASE) 30 MG PO (08:30)
[2025-06-09] MEDS: APRESOLINE 50 MG PO (08:30)
[2025-06-09] MEDS: IMDUR (EXTENDED RELEASE) 30 MG PO (08:30)
[2025-06-09 12:01] LABS: Glucose - Point of Care 302 mg/dl (70-99)
--- NOTE | 2025-06-09 12:25 | W.PN.NEPH.PH ---
Today's Communication / Plan
-
continue torsemide
Assessment/Plan
-
Assessment
JAMAR
CKD 4
Diabetes mellitus type 2
Hypertension
Edema
Heart failure reduced ejection fraction 35%
To thrive
Hyponatremia
Hyperkalemia
Metabolic acidosis
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
Plan
back on torsemide 20mg
monitor h/h, Last Procrit dose 06/02/2025, dose procrit again
Will need to continue Procrit as an outpatient every 2 weeks
No urgent need of DENTAL LAB TECHNICIAN, d/w pt that he will need access preparation soon
for SNF
-
-
Date of Service: June 09, 2025
CC / HPI / ROS
-
Chief Complaint:
JAMAR
History of Present Illness:
JAMAR/Cr down to 3.7
BP stable
Hgb low at 7.9
Na 133
K stable 5.1
Review of Systems:
no CP/SOB
Nonoliguric
Labs
-
Labs:
WBC 4.6 10^3/uL (4.8-10.8) L 06/09/25 06:16
RBC 2.46 10^6/uL (4.70-6.10) L 06/09/25 06:16
Hgb 7.9 g/dL (13.0-18.0) L 06/09/25 06:16
Hct 23.5 % (39.0-52.0) L 06/09/25 06:16
Plt Count 203 10^3/uL (130-400) 06/09/25 06:16
Sodium 133 mmol/L (135-145) L 06/09/25 06:16
Potassium 5.1 mmol/L (3.5-5.1) 06/09/25 06:16
Chloride 95 mmol/L (98-107) L 06/09/25 06:16
Carbon Dioxide 29 mmol/L (22-30) 06/09/25 06:16
BUN 105 mg/dl (9-20) H* 06/09/25 06:16
Creatinine 3.7 mg/dL (0.7-1.3) H 06/09/25 06:16
eGFR 18.04 06/09/25 06:16
Glucose 288 mg/dl (70-99) H 06/09/25 06:16
Calcium 8.3 mg/dl (8.4-10.2) L 06/09/25 06:16
Phosphorus 5.0 mg/dl (2.5-4.5) H 05/29/25 08:17
Mor-D-Hwxgozunjjs Pept > 78627 pg/ml 05/29/25 03:48
Albumin 2.8 g/dl (3.5-5.0) L 06/02/25 07:22
Physical Exam
-
Vital Signs:
Vital Signs
Temp Pulse Resp BP Pulse Ox
96.9 F L 70 18 187/95 93
06/09/25 06:45 06/09/25 08:30 06/09/25 06:45 06/09/25 08:30 06/09/25 08:21
Cardiovascular:: Regular rate and rhythm
Respiratory:: Bilateral: Coarse
Lung Excursion:: Normal
Abdomen:: Nontender and Soft
Bowel Sounds:: Normal
Extremity Edema:: None: Bilateral:
[2025-06-09] MEDS: NOVOLOG FLEXPEN 6 UNITS SC (12:41)
--- NOTE | 2025-06-09 14:30 | W.PN.HOSP.TC ---
Today's Communication/Plan
-
Continue torsemide
Monitor BMP and CBC
Planning for [facility] rehab
Assessment / Plan
Assessment / Plan
#IDDM 2 with hyperglycemia
-Presented in [facility], status post aggressive IV fluids and insulin protocol
-Current regimen Lantus 15 units daily with NovoLog 6 units at lunch and dinner, NovoLog 8 units with breakfast
-Will continue to adjust insulin per DM team recommendations, which are appreciated
-BG goal 140 180, avoid hypoglycemia
#JAMAR on CKD stage IV
-Likely prerenal with intravascular volume depletion due to osmotic diuresis, significant hyperglycemia on arrival
-Creatinine baseline previously near 3.0, has since stabilized here near 3.5-4; question if this is new baseline
-Following aggressive IV fluids was resumed on torsemide for diuresis in the context of his CHF
-Continue torsemide, trend BMP and UOP, monitor for azotemic symptoms
-Avoid nephrotoxin
#Chronic HFrecEF
-History of HFrEF with LVEF 35% from ischemic disease; echo here with LVEF 53%
-Home GDMT includes carvedilol, SGLT2i, aspirin, high intensity statin
-Maintained on loop diuresis with torsemide
-Appears euvolemic, monitor I's and O's + weights
#Hyponatremia
-Mild, clinically insignificant
-Stable with fluid restriction
#Primary hypertension
-Home regimen includes carvedilol twice daily, hydralazine BID, and isosorbide mononitrate
-Was started on Procardia while hospitalized here on 06/02
-Continue to monitor blood pressure and titrate as needed
#Hypothyroidism
-Home regimen includes levothyroxine
-Biochemically and clinically euthyroid
#CAD s/p PCI
#Dyslipidemia
-Home regimen includes beta-tiffany, high intensity statin, aspirin
-LDL goal <70 for secondary prevention
#Acute on chronic anemia of CKD
-Likely worsening anemia due to decreased EPO in the context of JAMAR
-S/p 1 unit PRBC here; no signs of bleeding
-Received erythropoietin stimulating agent with nephrology
-Continue to trend CBC and monitor for bleeding
Diet: Carbohydrate controlled, 2000-calorie
Thromboprophylaxis: SQ heparin
CODE STATUS: Full code
Disposition: Pending [facility], likely in next 24-48 hours
Anticipated Discharge: 24 - 48 hours
Subjective/Interval History
-
Date of Service: June 09, 2025
Seen and examined at the bedside. No acute events reported overnight. AFVSS this morning
Hemoglobin stable, no bleeding reported. Creatinine mildly downtrending to 3.7
Patient denies any complaints today including chest pain, dyspnea, fevers or chills, metallic taste.
Objective Data
-
Labs:
Laboratory Results
06/09/25
06:16
WBC 4.6 L
Hgb 7.9 L
Hct 23.5 L
Plt Count 203
Sodium 133 L
Potassium 5.1
Chloride 95 L
Carbon Dioxide 29
BUN 105 H*
Creatinine 3.7 H
Glucose 288 H
Calcium 8.3 L
Vital Signs:
Vital Signs
Temp Pulse Resp BP Pulse Ox
96.9 F L 70 18 187/95 93
06/09/25 06:45 06/09/25 08:30 06/09/25 06:45 06/09/25 08:30 06/09/25 08:21
I&O
06/08/25 06/09/25 06/10/25
06:59 06:59 06:59
Intake Total 960 / 960 720 / 720
Output Total 200 / 200
Balance 760 / 760 720 / 720
Review of Systems
-
History Source: Patient
All other systems: Reviewed and negative
Physical Exam
-
General: Well Developed, Appears Chronically Ill and Other (Frail-appearing, thin)
HEENT: Normocephalic, Atraumatic and Moist Mucous Membranes
Respiratory: Clear to Auscultation and Non Labored Respirations; Negative Accessory Resp Muscle Use
Cardiac: Regular Rhythm and S1/S2; Negative Murmur, Rub or Gallop
GI: Soft, Nontender, Nondistended and Normal Bowel Sounds
Musculoskeletal: No Clubbing, No Cyanosis and No Edema
Skin: Warm and Dry; Negative Rash
Neuro: AO x 3, Nonfocal/Grossly Intact, Central Nerve's Intact and Other (No tremor or asterixis)
Psych: Calm
Data Reviewed
-
Labs: Labs Reviewed by me and Discussed with Patient
[2025-06-09] MEDS: RETACRIT 20000 UNITS SC (14:54)
--- NOTE | 2025-06-09 15:37 | CM ---
Addendum entered by Dionne Basilio 06/09/25 17:45:
Pt needs insurance auth. CM will try to get it over the weekend but it may not come through until Thursday.
Plan: D/C to [facility] after auth is obtained and bed is available
Original Note:
[facility] accepts patient Pt does not need dialysis at this time.
Plan: D/C to [facility] when bed available
[2025-06-09 15:39] VITALS: BP 115/58
[2025-06-09 16:30] LABS: Glucose - Point of Care 251 mg/dl (70-99)
[2025-06-09] MEDS: APRESOLINE 75 MG PO (17:41)
[2025-06-09] MEDS: NOVOLOG FLEXPEN-LOW RESISTANCE 3 UNITS SC (17:44)
[2025-06-09] MEDS: LIPITOR 40 MG PO (20:44)
[2025-06-09 21:13] LABS: Glucose - Point of Care 369 mg/dl (70-99)
--- NOTE | 2025-06-09 21:47 | W.PN.UPDATE ---
Update Note
Progress Note Update
HS blood sugar 369. Rx SC aspart 5U.
[2025-06-09] MEDS: NOVOLOG FLEXPEN 5 UNITS SC (22:09)
[2025-06-09 23:24] VITALS: BP 133/66
[2025-06-10 01:18] LABS: Glucose - Point of Care 245 mg/dl (70-99)
[2025-06-10] MEDS: SYNTHROID 112 MCG PO (05:41)
[2025-06-10 06:00] VITALS: BMI 23.2
[2025-06-10 07:00] VITALS: BP 164/74
[2025-06-10 07:01] LABS: Glucose - Point of Care 161 mg/dl (70-99)
[2025-06-10 07:11] LABS: Hematocrit 22.0 % (39.0-52.0); Hemoglobin 7.2 g/dL (13.0-18.0); Mean Corp Hgb Conc. 32.7 g/dL (33.0-37.0); Mean Corpuscular Volume 94.4 fL (80.0-94.0); Platelet Count 179 10^3/uL (130-400); Red Cell Dist. Width 16.3 % (11.5-14.5)
[2025-06-10 07:39] LABS: Blood Urea Nitrogen 104 mg/dl (9-20); Calcium 8.4 mg/dl (8.4-10.2); Carbon Dioxide 29 mmol/L (22-30); Chloride 95 mmol/L (98-107); Estimated Creatinine Clearance 18 ml/min; Glucose 155 mg/dl (70-99); Magnesium 2.2 mg/dl (1.6-2.3); Potassium 4.8 mmol/L (3.5-5.1); Sodium 132 mmol/L (135-145); eGFR 15.49
--- NOTE | 2025-06-10 08:22 | PTCARENOTE ---
Made Dr. Montejo aware of pt's critical creatinine level of 4.[address] Montejo ok with pt receiving ordered dose of Torsemide this am.
[2025-06-10] MEDS: NOVOLOG FLEXPEN 10 UNITS SC (09:02)
[2025-06-10] MEDS: NOVOLOG FLEXPEN-LOW RESISTANCE 1 UNITS SC (09:02)
[2025-06-10] MEDS: APRESOLINE 50 MG PO (09:03)
[2025-06-10] MEDS: ASPIR LOW (ENTERIC COATED) 81 MG PO (09:03)
[2025-06-10] MEDS: COLACE PO ×2 (09:03→19:55)
[2025-06-10] MEDS: MIRALAX PO (09:04)
[2025-06-10] MEDS: DEMADEX 20 MG PO (09:04)
[2025-06-10] MEDS: HEPARIN 5000 UNITS SC ×2 (09:04→17:08)
[2025-06-10] MEDS: COREG 12.5 MG PO (09:04)
[2025-06-10] MEDS: IMDUR (EXTENDED RELEASE) 30 MG PO (09:04)
[2025-06-10] MEDS: LANTUS 0.2 UNITS SC (09:05)
[2025-06-10] MEDS: FLUSH (NSS) 1 FLUSH IV (09:06)
[2025-06-10] MEDS: PROCARDIA XL (EXTENDED RELEASE) 30 MG PO (09:07)
[2025-06-10] MEDS: LANTUS SC (09:20)
--- NOTE | 2025-06-10 11:25 | W.PN.HOSP.TC ---
Today's Communication/Plan
-
Increase Lantus to 20 units
Trend renal function on torsemide
Pending [facility] when bed available
Assessment / Plan
Assessment / Plan
#IDDM 2 with hyperglycemia
-Presented in [facility], status post aggressive IV fluids and insulin protocol
-Current regimen Lantus 20 units daily with NovoLog 8 units at lunch and dinner, NovoLog 10 units with breakfast
-Remains with significant hyperglycemia, may need further up titrations to his insulin regimen
-Will continue to adjust insulin per DM team recommendations, which are appreciated
-BG goal 140-180, avoid hypoglycemia
#JAMAR on CKD stage IV
-Likely prerenal with intravascular volume depletion due to osmotic diuresis, significant hyperglycemia on arrival
-Creatinine baseline previously near 3.0, has since stabilized here near 3.5-4; question if this is new baseline
-Following aggressive IV fluids was resumed on torsemide for diuresis in the context of his CHF
-Continue torsemide, trend BMP and UOP, monitor for azotemic symptoms
-Avoid nephrotoxin
#Chronic HFrecEF
-History of HFrEF with LVEF 35% from ischemic disease; echo here with LVEF 53%
-Home GDMT includes carvedilol, SGLT2i, aspirin, high intensity statin
-Maintained on loop diuresis with torsemide
-Appears euvolemic, monitor I's and O's + weights
#Hyponatremia
-Mild, clinically insignificant
-Stable with fluid restriction
#Primary hypertension
-Home regimen includes carvedilol twice daily, hydralazine BID, and isosorbide mononitrate
-Was started on Procardia while hospitalized here on 06/02
-Continue to monitor blood pressure and titrate as needed
#Hypothyroidism
-Home regimen includes levothyroxine
-Biochemically and clinically euthyroid
#CAD s/p PCI
#Dyslipidemia
-Home regimen includes beta-tiffany, high intensity statin, aspirin
-LDL goal <70 for secondary prevention
#Acute on chronic anemia of CKD
-Likely worsening anemia due to decreased EPO in the context of JAMAR
-S/p 1 unit PRBC here; no signs of bleeding
-Received erythropoietin stimulating agent with nephrology
-Continue to trend CBC and monitor for bleeding
Diet: Carbohydrate controlled, 2000-calorie
Thromboprophylaxis: SQ heparin
CODE STATUS: Full code
Disposition: Pending [facility] when bed available
Anticipated Discharge: 24 - 48 hours
Subjective/Interval History
-
Date of Service: June 10, 2025
Seen and examined at bedside. No acute events reported overnight. AFVSS this morning
Did have elevated blood sugar, near 370, and 5 units insulin were given overnight. Creatinine trend 4.0�3.7�4.2, BUN stable in low 100s. Denies oliguria
As of this morning he denies any complaints, states he feels well. Blood sugars improved slightly
Objective Data
-
Labs:
Laboratory Results
06/10/25
06:45
WBC 3.8 L
Hgb 7.2 L
Hct 22.0 L
Plt Count 179
Sodium 132 L
Potassium 4.8
Chloride 95 L
Carbon Dioxide 29
BUN 104 H*
Creatinine 4.2 H*
Glucose 155 H
Calcium 8.4
Vital Signs:
Vital Signs
Temp Pulse Resp BP Pulse Ox
97.3 F 65 12 177/79 91
06/10/25 07:00 06/10/25 09:03 06/10/25 07:00 06/10/25 09:03 06/10/25 07:00
I&O
06/09/25 06/10/25 06/11/25
06:59 06:59 06:59
Intake Total 720 / 720 1020 / 1020 420 / 420
Balance 720 / 720 1020 / 1020 420 / 420
Review of Systems
-
History Source: Patient
All other systems: Reviewed and negative
Physical Exam
-
General: Well Developed, No Apparent Distress and Appears Chronically Ill
HEENT: Normocephalic, Atraumatic, Moist Mucous Membranes and Anicteric
Respiratory: Clear to Auscultation, Non Labored Respirations and Accessory Resp Muscle Use
Cardiac: Regular Rhythm and S1/S2; Negative Murmur, Rub or Gallop
GI: Soft, Nontender, Nondistended and Normal Bowel Sounds
Musculoskeletal: No Clubbing, No Cyanosis and Other (Trace to 1+ edema)
Skin: Warm and Dry; Negative Rash
Neuro: AO x 3, Nonfocal/Grossly Intact and Central Nerve's Intact
Psych: Calm
Data Reviewed
-
Labs: Labs Reviewed by me and Discussed with Patient
[2025-06-10 11:30] VITALS: BP 107/46
[2025-06-10 11:38] LABS: Glucose - Point of Care 232 mg/dl (70-99)
[2025-06-10] MEDS: NOVOLOG FLEXPEN 8 UNITS SC ×2 (12:16→17:07)
[2025-06-10] MEDS: NOVOLOG FLEXPEN-LOW RESISTANCE 2 UNITS SC (12:16)
--- NOTE | 2025-06-10 12:25 | W.PN.NEPH.PH ---
Today's Communication / Plan
-
meds adjusted
Assessment/Plan
-
Assessment
JAMAR
CKD 4
Diabetes mellitus type 2
Hypertension
Edema
Heart failure reduced ejection fraction 35%
To thrive
Hyponatremia
Hyperkalemia
Metabolic acidosis
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
Plan
back on torsemide 20mg
given variability in BP will reduce carvedilol
monitor h/h, Last Procrit dose 06/09/2025
Will need to continue Procrit as an outpatient every 2 weeks
No urgent need of ELIGIBILITY TECHNICIAN, d/w pt that he will need access preparation soon
for SNF
-
-
Date of Service: June 10, 2025
CC / HPI / ROS
-
Chief Complaint:
JAMAR
History of Present Illness:
JAMAR/Cr up at 4.2
BP low, variable
Hgb low at 7.2
Na 133
K stable 4.8
Review of Systems:
no CP/SOB
Nonoliguric
Labs
-
Labs:
WBC 3.8 10^3/uL (4.8-10.8) L 06/10/25 06:45
RBC 2.33 10^6/uL (4.70-6.10) L 06/10/25 06:45
Hgb 7.2 g/dL (13.0-18.0) L 06/10/25 06:45
Hct 22.0 % (39.0-52.0) L 06/10/25 06:45
Plt Count 179 10^3/uL (130-400) 06/10/25 06:45
Sodium 132 mmol/L (135-145) L 06/10/25 06:45
Potassium 4.8 mmol/L (3.5-5.1) 06/10/25 06:45
Chloride 95 mmol/L (98-107) L 06/10/25 06:45
Carbon Dioxide 29 mmol/L (22-30) 06/10/25 06:45
BUN 104 mg/dl (9-20) H* 06/10/25 06:45
Creatinine 4.2 mg/dL (0.7-1.3) H* 06/10/25 06:45
eGFR 15.49 06/10/25 06:45
Glucose 155 mg/dl (70-99) H 06/10/25 06:45
Calcium 8.4 mg/dl (8.4-10.2) 06/10/25 06:45
Phosphorus 5.0 mg/dl (2.5-4.5) H 05/29/25 08:17
Hct-X-Mtoaffiwiil Pept > 25341 pg/ml 05/29/25 03:48
Albumin 2.8 g/dl (3.5-5.0) L 06/02/25 07:22
Physical Exam
-
Vital Signs:
Vital Signs
Temp Pulse Resp BP Pulse Ox
97.3 F 57 12 107/46 92
06/10/25 07:00 06/10/25 11:30 06/10/25 07:00 06/10/25 11:30 06/10/25 09:00
Cardiovascular:: Regular rate and rhythm
Respiratory:: Bilateral: Coarse
Lung Excursion:: Normal
Abdomen:: Nontender and Soft
Bowel Sounds:: Normal
Extremity Edema:: None: Bilateral:
[2025-06-10 14:49] VITALS: BP 118/54; PULSE 54; O2SAT 93
[2025-06-10 15:00] VITALS: BP 110/57
--- NOTE | 2025-06-10 16:21 | CM ---
Patient recommended for acute rehab. Needed updated OT note for auth. Note completed but [facility] does not have a bed this weekend. Additional acute referrals forwarded.
[2025-06-10 16:24] VITALS: BP 110/57
[2025-06-10 16:35] LABS: Glucose - Point of Care 126 mg/dl (70-99)
[2025-06-10] MEDS: NOVOLOG FLEXPEN-LOW RESISTANCE SC (17:06)
[2025-06-10] MEDS: APRESOLINE 75 MG PO (17:07)
[2025-06-10] MEDS: LIPITOR 40 MG PO (19:55)
[2025-06-10] MEDS: COREG 6.25 MG PO (19:55)
[2025-06-10 21:11] LABS: Glucose - Point of Care 107 mg/dl (70-99)
[2025-06-10 23:10] VITALS: BP 146/73
[2025-06-11] MEDS: HEPARIN 5000 UNITS SC ×4 (00:37→23:07)
[2025-06-11] MEDS: SYNTHROID 112 MCG PO (04:49)
[2025-06-11 05:53] LABS: Hematocrit 21.4 % (39.0-52.0); Hemoglobin 7.1 g/dL (13.0-18.0); Mean Corp Hgb Conc. 33.2 g/dL (33.0-37.0); Mean Corpuscular Volume 94.7 fL (80.0-94.0); Nucleated Red Blood Cells % 0 % (-); Platelet Count 186 10^3/uL (130-400); Red Cell Dist. Width 16.2 % (11.5-14.5)
[2025-06-11 06:00] VITALS: BMI 23.4
[2025-06-11 06:22] LABS: Blood Urea Nitrogen 113 mg/dl (9-20); Calcium 8.1 mg/dl (8.4-10.2); Carbon Dioxide 27 mmol/L (22-30); Chloride 96 mmol/L (98-107); Estimated Creatinine Clearance 19 ml/min; Glucose 84 mg/dl (70-99); Potassium 4.7 mmol/L (3.5-5.1); Sodium 133 mmol/L (135-145); eGFR 16.43
[2025-06-11 07:00] VITALS: BP 168/89
[2025-06-11 07:01] LABS: Glucose - Point of Care 102 mg/dl (70-99)
[2025-06-11] MEDS: APRESOLINE 50 MG PO (08:49)
[2025-06-11] MEDS: NOVOLOG FLEXPEN-LOW RESISTANCE SC ×3 (08:49→17:29)
[2025-06-11] MEDS: DEMADEX 20 MG PO (08:50)
[2025-06-11] MEDS: IMDUR (EXTENDED RELEASE) 30 MG PO (08:50)
[2025-06-11] MEDS: COREG 6.25 MG PO ×2 (08:50→20:05)
[2025-06-11] MEDS: PROCARDIA XL (EXTENDED RELEASE) 30 MG PO (08:50)
[2025-06-11] MEDS: FLUSH (NSS) 1 FLUSH IV (08:51)
[2025-06-11 08:52] VITALS: BP 168/89
[2025-06-11] MEDS: COLACE PO ×3 (08:52→20:22)
[2025-06-11] MEDS: MIRALAX PO (08:52)
[2025-06-11] MEDS: NOVOLOG FLEXPEN 10 UNITS SC (10:03)
[2025-06-11] MEDS: LANTUS 0.2 UNITS SC (10:04)
[2025-06-11 11:00] VITALS: BP 130/82
[2025-06-11 11:03] LABS: Glucose - Point of Care 158 mg/dl (70-99)
--- NOTE | 2025-06-11 11:15 | PTCARENOTE ---
pt's blood sugar prior to breakfast was 102. Made Dr. Vaughan aware. Dr. Vaughan requesting that we check his blood sugar in 30-45min after eating before administering Novolog and Lantus. Pt ate all of breakfast, rechecked blood sugar at 0943, 151.
Blood sugar result of 151 not resulting in chart, reviewed on glucometer. Dr. Vaughan made aware and he indicated to administer insulins as ordered and recheck in 1 hr.
On recheck at 1102, blood sugar 158, updated Dr. Vaughan on result, will continue to monitor.
--- NOTE | 2025-06-11 11:23 | W.PN.HOSP.TC ---
Today's Communication/Plan
-
Pending discharge to [facility]
Monitor BMP and volume status on torsemide 20 mg
Assessment / Plan
Assessment / Plan
#IDDM 2 with hyperglycemia
-Presented in DKA/HHS, status post aggressive IV fluids and insulin protocol with transition back to SQ regimen
-Current regimen Lantus 20 units daily with NovoLog 8 units at lunch and dinner, NovoLog 10 units with breakfast
-Remains with significant hyperglycemia, may need further up titrations to his insulin regimen
-Will continue to adjust insulin per DM team recommendations, which are appreciated
-BG goal 140-180, avoid hypoglycemia
#JAMAR on CKD stage IV
-Likely prerenal with intravascular volume depletion due to osmotic diuresis, significant hyperglycemia on arrival
-Creatinine baseline previously near 3.0, has since stabilized here near 3.5-4; question if this is new baseline
-Following aggressive IV fluids was resumed on torsemide for diuresis in the context of his CHF
-On 06/10 nephrology reduced torsemide to 20 mg, carvedilol to 6.25 mg
-Continue torsemide, trend BMP and UOP, monitor for azotemic symptoms
-Avoid nephrotoxin
#Chronic HFrecEF
-History of HFrEF with LVEF 35% from ischemic disease; echo here with LVEF 53%
-Home GDMT includes carvedilol, SGLT2i, aspirin, high intensity statin
-Maintained on loop diuresis with torsemide
-Appears euvolemic, monitor I's and O's + weights
#Hyponatremia
-Mild, clinically insignificant
-Stable with fluid restriction
#Primary hypertension
-Home regimen includes carvedilol twice daily, hydralazine BID, and isosorbide mononitrate
-Was started on Procardia while hospitalized here on 06/02
-Continue to monitor blood pressure and titrate as needed
#Hypothyroidism
-Home regimen includes levothyroxine
-Biochemically and clinically euthyroid
#CAD s/p PCI
#Dyslipidemia
-Home regimen includes beta-tiffany, high intensity statin, aspirin
-LDL goal <70 for secondary prevention
#Acute on chronic anemia of CKD
-Likely worsening anemia due to decreased EPO in the context of JAMAR
-S/p 1 unit PRBC here; no signs of bleeding
-Received erythropoietin stimulating agent with nephrology
-Continue to trend CBC and monitor for bleeding
Diet: Carbohydrate controlled, 2000-calorie
Thromboprophylaxis: SQ heparin
CODE STATUS: Full code
Disposition: [facility] when [facility]
Anticipated Discharge: Within 24 hours
Subjective/Interval History
-
Date of Service: June 11, 2025
Seen and examined at the bedside. No acute events reported overnight. AFVSS this morning
Torsemide dose was reduced to 20 mg, carvedilol dose reduced by nephrology yesterday to optimize renal perfusion
Labs stable, patient remains without any new complaints. Pending discharge to [facility]
Objective Data
-
Labs:
Laboratory Results
06/11/25
05:02
WBC 3.5 L
Hgb 7.1 L
Hct 21.4 L
Plt Count 186
Sodium 133 L
Potassium 4.7
Chloride 96 L
Carbon Dioxide 27
BUN 113 H*
Creatinine 4.0 H
Glucose 84
Calcium 8.1 L
Vital Signs:
Vital Signs
Temp Pulse Resp BP Pulse Ox
97.4 F 59 12 168/89 93
06/11/25 07:00 06/11/25 08:49 06/11/25 07:00 06/11/25 08:49 06/11/25 07:00
I&O
06/10/25 06/11/25 06/12/25
06:59 06:59 06:59
Intake Total 1020 / 1020 660 / 660 180 / 180
Balance 1020 / 1020 660 / 660 180 / 180
Review of Systems
-
History Source: Patient
All other systems: Reviewed and negative
Physical Exam
-
General: Well Developed, Well Nourished and Appears Chronically Ill
HEENT: Normocephalic, Atraumatic and Moist Mucous Membranes
Respiratory: Clear to Auscultation and Non Labored Respirations; Negative Accessory Resp Muscle Use
Cardiac: Regular Rhythm and S1/S2; Negative Murmur, Rub or Gallop
GI: Soft, Nontender, Nondistended and Normal Bowel Sounds
Musculoskeletal: No Clubbing, No Cyanosis and Other (Trace edema bilaterally)
Skin: Warm and Dry; Negative Rash
Neuro: AO x 3, Nonfocal/Grossly Intact and Central Nerve's Intact
Psych: Calm
Data Reviewed
-
Labs: Labs Reviewed by me and Discussed with Patient
--- NOTE | 2025-06-11 11:30 | PTCARENOTE ---
Pt rarely using urinal provided for accurate urinary output measurement. Pt states that he likes to just use the toilet. Provided pt with collection container (hat) for outputs.
[2025-06-11 12:38] LABS: Glucose - Point of Care 73 mg/dl (70-99)
[2025-06-11] MEDS: NOVOLOG FLEXPEN SC (12:51)
[2025-06-11] MEDS: ASPIR LOW (ENTERIC COATED) 81 MG PO (13:01)
--- NOTE | 2025-06-11 13:55 | W.PN.NEPH.PH ---
Today's Communication / Plan
-
follow BMP
Assessment/Plan
-
Assessment
JAMAR
CKD 4
Diabetes mellitus type 2
Hypertension
Edema
Heart failure reduced ejection fraction 35%
To thrive
Hyponatremia
Hyperkalemia
Metabolic acidosis
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
Plan
continue torsemide 20mg
BP variable on current regimen, but no hypotension
monitor h/h, Last Procrit dose 06/09/2025
Will need to continue Procrit as an outpatient every 2 weeks
No urgent need of QA SOFTWARE TESTER, d/w pt that he will need access preparation soon
for SNF
-
-
Date of Service: June 11, 2025
CC / HPI / ROS
-
Chief Complaint:
JAMAR
History of Present Illness:
JAMAR/Cr up at 4
BP low, variable
Hgb low at 7.1
Na 133 stable
K stable 4.7
Review of Systems:
no CP/SOB
Nonoliguric
Labs
-
Labs:
WBC 3.5 10^3/uL (4.8-10.8) L 06/11/25 05:02
RBC 2.26 10^6/uL (4.70-6.10) L 06/11/25 05:02
Hgb 7.1 g/dL (13.0-18.0) L 06/11/25 05:02
Hct 21.4 % (39.0-52.0) L 06/11/25 05:02
Plt Count 186 10^3/uL (130-400) 06/11/25 05:02
Sodium 133 mmol/L (135-145) L 06/11/25 05:02
Potassium 4.7 mmol/L (3.5-5.1) 10/12/25 05:02
Chloride 96 mmol/L (98-107) L 06/11/25 05:02
Carbon Dioxide 27 mmol/L (22-30) 06/11/25 05:02
BUN 113 mg/dl (9-20) H* 06/11/25 05:02
Creatinine 4.0 mg/dL (0.7-1.3) H 06/11/25 05:02
eGFR 16.43 06/11/25 05:02
Glucose 84 mg/dl (70-99) 06/11/25 05:02
Calcium 8.1 mg/dl (8.4-10.2) L 06/11/25 05:02
Phosphorus 5.0 mg/dl (2.5-4.5) H 05/29/25 08:17
Hdl-B-Fbqsrvoqgzd Pept > 62274 pg/ml 05/29/25 03:48
Albumin 2.8 g/dl (3.5-5.0) L 06/02/25 07:22
Physical Exam
-
Vital Signs:
Vital Signs
Temp Pulse Resp BP Pulse Ox
97.4 F 59 12 168/89 93
06/11/25 07:00 06/11/25 08:49 06/11/25 07:00 06/11/25 08:49 06/11/25 07:00
Cardiovascular:: Regular rate and rhythm
Respiratory:: Bilateral: Coarse
Lung Excursion:: Normal
Abdomen:: Nontender and Soft
Bowel Sounds:: Normal
Extremity Edema:: None: Bilateral:
[2025-06-11 15:00] VITALS: BP 101/50
[2025-06-11 16:46] LABS: Glucose - Point of Care 146 mg/dl (70-99)
[2025-06-11] MEDS: APRESOLINE PO (17:29)
[2025-06-11] MEDS: NOVOLOG FLEXPEN 8 UNITS SC (17:29)
--- NOTE | 2025-06-11 17:30 | PTCARENOTE ---
Pt's BP 101/53, HR 49 with check before administering Hydralazine 75mg at 1800. Made Dr. Vaughan aware and he indicated to hold evening dose of Hydralazine 75mg. Updated pt on plan.
[2025-06-11] MEDS: LIPITOR 40 MG PO (20:05)
[2025-06-11 21:59] LABS: Glucose - Point of Care 104 mg/dl (70-99)
[2025-06-11 23:37] VITALS: BP 144/72
[2025-06-12] MEDS: SYNTHROID 112 MCG PO (05:08)
[2025-06-12 06:00] VITALS: BMI 23.6
[2025-06-12 07:37] LABS: Glucose - Point of Care 56 mg/dl (70-99)
[2025-06-12 07:45] VITALS: BP 173/82
[2025-06-12 08:03] LABS: Glucose - Point of Care 79 mg/dl (70-99)
[2025-06-12] MEDS: NOVOLOG FLEXPEN-LOW RESISTANCE SC ×2 (08:04→12:07)
--- NOTE | 2025-06-12 08:07 | PN.DE.MGMTRT ---
Addendum entered and electronically signed by DAVID Gray 06/12/25 15:39:
Nurse reported low blood sugar pre-lunch of 69, instructed nurse to HOLD AM dose of Lantus and lunch time insulin dose. Will reduce AC NovoLog to 5 units.
Original Note:
Insulin Management
- -
06/12/2025: Diabetes Management Follow up
Patient is 60-year-old male who was brought to the ED by ambulance due to difficulty getting up after sliding to the floor.
PMH: CAD s/p stenting, ICM with CHF EF 35% Diastolic dysfunction, JESSENIA, CKD stage III baseline Cr 2-3, Hypothyroid and IDDM.
Reports 2 days of elevated blood glucose readings, decided not to take his insulin despite the elevations because he had trouble walking to the fridge due to swelling in his feet. Glucose on admission 839, elevated beta hydroxybutyrate to 4.3. pH
was 7.27. Anion gap 14, suggestive of a mixed high anion gap and non-gap acidosis. He was started on HHS-DKA protocol. Prior to admission was taking Farxiga 10 mg daily, Lantus 15 units daily with Humalog AC. A1C on admission 6.2%. States he has
been diabetic for over 10 years. Sees [facility]ocrine associates Dr. Cordero, and uses CGM- Inrmal 3.
Pt is awake, alert, sitting up in chair in NAD, offers no complaints, flat affect, able to discuss diabetes care plan.
Transitioned from insulin infusion on 05/29. Patient's appetite is improving.
Lantus dose was increased to 20 units over the weekend. 06/11 Premeal glucose 73 to 158, required no corrective insulin.
Pre-dinner glucose was 146, received NovoLog 8 units, HS glucose was 104. Noted for Hypoglycemia this AM, BS was 42 V, 56 POC.
Will reduce Lantus dose to 15 units and AC NovoLog to 8 units with breakfast and 6 units with lunch and dinner. Cont low corrective insulin.
Will give Lantus 15 units late AM today and adjust schedule to 8 AM tomorrow.
Discussed with Nurse, will check POC glucose at 10am and 12pm. Will cont to follow and adjust insulin dose if necessary.
Diabetes History
- -
Type of Diabetes: 2 requiring insulin
Pre-Admission Diabetes Regimen
Insulin Pump Settings
IP Diabetes Regimen
06/11/25 06/11/25 06/11/25
11:02 12:37 16:45
POC Glucose 158 H 73 146 H
06/11/25 06/12/25 06/12/25
21:14 07:34 07:59
POC Glucose 104 H 56 L 79
Meal type: Dinner
Meal type: Lunch
Meal type: Breakfast
Amount consumed: 100%
Amount consumed: 100%
Amount consumed: 100%
Patient Education
[2025-06-12] MEDS: MIRALAX PO (08:11)
[2025-06-12] MEDS: HEPARIN 5000 UNITS SC ×3 (08:11→23:00)
[2025-06-12] MEDS: IMDUR (EXTENDED RELEASE) 30 MG PO (08:12)
[2025-06-12] MEDS: COREG 6.25 MG PO (08:12)
[2025-06-12] MEDS: PROCARDIA XL (EXTENDED RELEASE) 30 MG PO (08:12)
[2025-06-12] MEDS: COLACE PO ×2 (08:12→19:38)
[2025-06-12] MEDS: APRESOLINE 50 MG PO (08:12)
[2025-06-12] MEDS: ASPIR LOW (ENTERIC COATED) 81 MG PO (08:12)
[2025-06-12] MEDS: NOVOLOG FLEXPEN SC (08:14)
[2025-06-12 08:21] LABS: Hematocrit 22.4 % (39.0-52.0); Hemoglobin 7.3 g/dL (13.0-18.0); Mean Corp Hgb Conc. 32.6 g/dL (33.0-37.0); Mean Corpuscular Volume 94.1 fL (80.0-94.0); Nucleated Red Blood Cells % 0 % (-); Platelet Count 188 10^3/uL (130-400); Red Cell Dist. Width 16.6 % (11.5-14.5)
[2025-06-12 08:31] LABS: Blood Urea Nitrogen 118 mg/dl (9-20); Calcium 8.2 mg/dl (8.4-10.2); Carbon Dioxide 26 mmol/L (22-30); Chloride 96 mmol/L (98-107); Estimated Creatinine Clearance 20 ml/min; Glucose 42 mg/dl (70-99); Potassium 4.6 mmol/L (3.5-5.1); Sodium 132 mmol/L (135-145); eGFR 16.93
[2025-06-12] MEDS: NOVOLOG FLEXPEN 8 UNITS SC (08:36)
[2025-06-12] MEDS: DEMADEX 20 MG PO (08:36)
[2025-06-12] MEDS: LANTUS SC (08:37)
--- NOTE | 2025-06-12 08:56 | W.PN.HOSP.TC ---
Today's Communication/Plan
-
Reduce Lantus and mealtime insulin aspart
Hypoglycemic precautions
Continue current management otherwise
Discharge to acute rehab when bed available
Assessment / Plan
Assessment / Plan
#IDDM 2 with hyperglycemia
-Presented in DKA/HHS, status post aggressive IV fluids and insulin protocol with transition back to SQ regimen
-Was significantly hyperglycemic and insulin was uptitrated however recently has developed episodes of hypoglycemia
-Current regimen Lantus 20 units daily with NovoLog 6 units at lunch and dinner, NovoLog 8 units with breakfast
-Will reduce Lantus to 15 units daily today, continue NovoLog as currently prescribed
-BG goal 140-180, avoid hypoglycemia
-DM team appreciated
#JAMAR on CKD stage IV
-Likely prerenal with intravascular volume depletion due to osmotic diuresis, significant hyperglycemia on arrival
-Creatinine baseline previously near 3.0, has since stabilized here near 3.5-4; question if this is new baseline
-Following aggressive IV fluids was resumed on torsemide for diuresis in the context of his CHF
-On 06/10 nephrology reduced torsemide to 20 mg, carvedilol to 6.25 mg
-Continue torsemide, trend BMP and UOP, monitor for azotemic symptoms
-Avoid nephrotoxin
#Chronic HFrecEF
-History of HFrEF with LVEF 35% from ischemic disease; echo here with LVEF 53%
-Home GDMT includes carvedilol, SGLT2i, aspirin, high intensity statin
-Maintained on loop diuresis with torsemide
-Appears euvolemic, monitor I's and O's + weights
#Hyponatremia
-Mild, clinically insignificant
-Stable with fluid restriction
#Primary hypertension
-Home regimen includes carvedilol twice daily, hydralazine BID, and isosorbide mononitrate
-Was started on Procardia while hospitalized here on 06/02
-Continue to monitor blood pressure and titrate as needed
#Hypothyroidism
-Home regimen includes levothyroxine
-Biochemically and clinically euthyroid
#CAD s/p PCI
#Dyslipidemia
-Home regimen includes beta-tiffany, high intensity statin, aspirin
-LDL goal <70 for secondary prevention
#Acute on chronic anemia of CKD
-Likely worsening anemia due to decreased EPO in the context of JAMAR
-S/p 1 unit PRBC here; no signs of bleeding
-Received erythropoietin stimulating agent with nephrology
-Continue to trend CBC and monitor for bleeding
Diet: Carbohydrate controlled, 2000-calorie
Thromboprophylaxis: SQ heparin
CODE STATUS: Full code
Disposition: Pending [facility] or other [facility] when bed available
Anticipated Discharge: Within 24 hours
Subjective/Interval History
-
Date of Service: June 12, 2025
Seen and examined at the bedside. No acute events reported overnight. AFVSS this morning
Blood sugar hyperglycemic again today. Insulin was decreased. Remainder of labs generally stable, BUN with slight uptrend
Denies any azotemic symptoms. Denies any other acute complaints and states he feels well
Objective Data
-
Labs:
Laboratory Results
06/12/25
07:29
WBC 3.8 L
Hgb 7.3 L
Hct 22.4 L
Plt Count 188
Sodium 132 L
Potassium 4.6
Chloride 96 L
Carbon Dioxide 26
BUN 118 H*
Creatinine 3.9 H
Glucose 42 L*
Calcium 8.2 L
Vital Signs:
Vital Signs
Temp Pulse Resp BP Pulse Ox
98.1 F 57 16 173/82 97
06/12/25 07:45 06/12/25 08:12 06/12/25 07:45 06/12/25 08:12 06/12/25 07:45
I&O
06/11/25 06/12/25 06/13/25
06:59 06:59 06:59
Intake Total 660 / 660 1140 / 1140
Output Total 500 / 500
Balance 660 / 660 640 / 640
Review of Systems
-
History Source: Patient
All other systems: Reviewed and negative
Physical Exam
-
General: Well Developed, No Apparent Distress and Appears Chronically Ill
HEENT: Normocephalic, Atraumatic and Moist Mucous Membranes
Respiratory: Clear to Auscultation and Non Labored Respirations; Negative Accessory Resp Muscle Use
Cardiac: Regular Rhythm, S1/S2 and Other (Trace LE edema); Negative Murmur, Rub, JVD or Gallop
GI: Soft, Nontender, Nondistended and Normal Bowel Sounds
Musculoskeletal: No Clubbing, No Cyanosis and No Edema
Skin: Warm and Dry; Negative Rash
Neuro: AO x 3, Nonfocal/Grossly Intact and Central Nerve's Intact
Psych: Calm
Data Reviewed
-
Labs: Labs Reviewed by me and Discussed with Patient
--- NOTE | 2025-06-12 10:04 | CM ---
Requested PT OT to see patient .
Spoke with [facility] rep [phone] she said she will check today's PT OT evals and call back with her discission to accept.
Additional acute rehab referral in care port.
Will need auth for acute rehab with [employer] .
PLAN Locate acute rehab with bed and obtained auth
[2025-06-12 10:12] LABS: Glucose - Point of Care 117 mg/dl (70-99)
[2025-06-12 10:30] VITALS: BP 146/73; PULSE 56; O2SAT 90
[2025-06-12 10:32] VITALS: BP 146/73; PULSE 56; O2SAT 90
[2025-06-12] MEDS: FLUZONE (6 mos+) 2025-2026 FORMULA 0.5 ML IM (10:35)
[2025-06-12 11:12] VITALS: BP 136/64
[2025-06-12 11:56] LABS: Glucose - Point of Care 69 mg/dl (70-99)
[2025-06-12 12:25] LABS: Glucose - Point of Care 56 mg/dl (70-99)
[2025-06-12 12:45] LABS: Glucose - Point of Care 77 mg/dl (70-99)
--- NOTE | 2025-06-12 14:52 | W.PN.NEPH.PH ---
Today's Communication / Plan
-
Stable awaiting discharge
Assessment/Plan
-
Assessment
JAMAR
CKD 4
Diabetes mellitus type 2
Hypertension
Edema
Heart failure reduced ejection fraction 35%
To thrive
Hyponatremia
Hyperkalemia
Metabolic acidosis
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
Plan
continue torsemide 20mg
BP variable on current regimen, but no hypotension
monitor h/h, Last Procrit dose 06/09/2025
Will need to continue Procrit as an outpatient every 2 weeks
No urgent need of LOCOMOTIVE OILER, d/w pt that he will need access preparation soon
for SNF
Okay for discharge from renal standpoint
-
-
Date of Service: June 12, 2025
CC / HPI / ROS
-
Chief Complaint:
JAMAR
History of Present Illness:
JAMAR/Cr up at 4
BP low, variable
Hgb low at 7.1
Na 133 stable
K stable 4.7
Review of Systems:
no CP/SOB
Nonoliguric
Labs
-
Labs:
WBC 3.8 10^3/uL (4.8-10.8) L 06/12/25 07:29
RBC 2.38 10^6/uL (4.70-6.10) L 06/12/25 07:29
Hgb 7.3 g/dL (13.0-18.0) L 06/12/25 07:29
Hct 22.4 % (39.0-52.0) L 06/12/25 07:29
Plt Count 188 10^3/uL (130-400) 06/12/25 07:29
Sodium 132 mmol/L (135-145) L 06/12/25 07:29
Potassium 4.6 mmol/L (3.5-5.1) 06/12/25 07:29
Chloride 96 mmol/L (98-107) L 06/12/25 07:29
Carbon Dioxide 26 mmol/L (22-30) 06/12/25 07:29
BUN 118 mg/dl (9-20) H* 06/12/25 07:29
Creatinine 3.9 mg/dL (0.7-1.3) H 06/12/25 07:29
eGFR 16.93 06/12/25 07:29
Glucose 42 mg/dl (70-99) L* 06/12/25 07:29
Calcium 8.2 mg/dl (8.4-10.2) L 06/12/25 07:29
Phosphorus 5.0 mg/dl (2.5-4.5) H 05/29/25 08:17
Xyr-Y-Qrmqnftqbml Pept > 80501 pg/ml 05/29/25 03:48
Albumin 2.8 g/dl (3.5-5.0) L 06/02/25 07:22
Physical Exam
-
Vital Signs:
Vital Signs
Temp Pulse Resp BP Pulse Ox
97.3 F 53 18 136/64 95
06/12/25 11:12 06/12/25 11:12 06/12/25 11:12 06/12/25 11:12 06/12/25 11:12
Cardiovascular:: Regular rate and rhythm
Respiratory:: Bilateral: Coarse
Lung Excursion:: Normal
Abdomen:: Nontender and Soft
Bowel Sounds:: Normal
Extremity Edema:: None: Bilateral:
[2025-06-12 15:06] LABS: Glucose - Point of Care 187 mg/dl (70-99)
[2025-06-12 15:29] VITALS: BP 98/55
[2025-06-12] MEDS: APRESOLINE PO (17:00)
[2025-06-12 17:03] LABS: Glucose - Point of Care 156 mg/dl (70-99)
[2025-06-12] MEDS: NOVOLOG FLEXPEN-LOW RESISTANCE 1 UNITS SC (17:28)
[2025-06-12] MEDS: NOVOLOG FLEXPEN 5 UNITS SC (17:28)
[2025-06-12] MEDS: COREG PO (19:38)
[2025-06-12] MEDS: LIPITOR 40 MG PO (19:39)
[2025-06-12 21:24] LABS: Glucose - Point of Care 160 mg/dl (70-99)
[2025-06-12 23:18] VITALS: BP 147/68
[2025-06-13 03:02] LABS: Glucose - Point of Care 184 mg/dl (70-99)
[2025-06-13] MEDS: SYNTHROID 112 MCG PO (04:36)
[2025-06-13 06:00] VITALS: BMI 24.1
[2025-06-13 07:12] LABS: Glucose - Point of Care 179 mg/dl (70-99)
[2025-06-13 07:25] VITALS: BP 164/69
--- NOTE | 2025-06-13 08:39 | W.PN.HOSP.TC ---
Today's Communication/Plan
-
Discharge to acute rehab when bed available
Assessment / Plan
Assessment / Plan
#IDDM 2 with hyperglycemia
-Presented in DKA/HHS, status post aggressive IV fluids and insulin protocol with transition back to SQ regimen
-Was significantly hyperglycemic and insulin was uptitrated however recently has developed episodes of hypoglycemia
-Current regimen Lantus 15 units daily with NovoLog 6 units at lunch and dinner, NovoLog 8 units with breakfast
-Was briefly trialed on slightly higher doses of Lantus and aspart though became hypoglycemic
-Continue current insulin regimen, BG goal 140-180, avoid hypoglycemia
-DM team appreciated
#JAMAR on CKD stage IV
-Likely prerenal with intravascular volume depletion due to osmotic diuresis, significant hyperglycemia on arrival
-Creatinine baseline previously near 3.0, has since stabilized here near 3.5-4; question if this is new baseline
-Following aggressive IV fluids was resumed on torsemide for diuresis in the context of his CHF
-On 06/10 nephrology reduced torsemide to 20 mg, carvedilol to 6.25 mg
-Continue torsemide, trend BMP and UOP, monitor for azotemic symptoms
-Avoid nephrotoxins
#Chronic HFrecEF
-History of HFrEF with LVEF 35% from ischemic disease; echo here with LVEF 53%
-Home GDMT includes carvedilol, SGLT2i, aspirin, high intensity statin
-Maintained on loop diuresis with torsemide
-Appears euvolemic, monitor I's and O's + weights
#Hyponatremia
-Mild, clinically insignificant
-Stable with fluid restriction
#Primary hypertension
-Home regimen includes carvedilol twice daily, hydralazine BID, and isosorbide mononitrate
-Was started on Procardia while hospitalized here on 06/02
-Continue to monitor blood pressure and titrate as needed
#Hypothyroidism
-Home regimen includes levothyroxine
-Biochemically and clinically euthyroid
#CAD s/p PCI
#Dyslipidemia
-Home regimen includes beta-tiffany, high intensity statin, aspirin
-LDL goal <70 for secondary prevention
#Acute on chronic anemia of CKD
-Likely worsening anemia due to decreased EPO in the context of JAAMR
-S/p 1 unit PRBC here; no signs of bleeding
-Received erythropoietin stimulating agent with nephrology
-Continue to trend CBC and monitor for bleeding
Diet: Carbohydrate controlled, 2000-calorie
Thromboprophylaxis: SQ heparin
CODE STATUS: Full code
Disposition: Pending [facility] or other [facility] when bed available
Anticipated Discharge: Today
Subjective/Interval History
-
Date of Service: June 13, 2025
Seen and examined at the bedside. No acute events reported overnight. AFVSS this morning.
Improved with reduction of insulin regimen. Renal function remained stable
Patient denies any complaints today, states he feels well. Pending bed at acute rehab
Objective Data
-
Labs:
Laboratory Results
06/13/25
08:19
Sodium Pending
Potassium Pending
Chloride Pending
Carbon Dioxide Pending
BUN Pending
Creatinine Pending
Glucose Pending
Calcium Pending
Vital Signs:
Vital Signs
Temp Pulse Resp BP Pulse Ox
97.6 F 61 18 164/69 97
06/13/25 07:25 06/13/25 07:25 06/13/25 07:25 06/13/25 07:25 06/13/25 07:25
I&O
06/12/25 06/13/25 06/14/25
06:59 06:59 06:59
Intake Total 1140 / 1140 960 / 960
Output Total 500 / 500 850 / 850
Balance 640 / 640 110 / 110
Review of Systems
-
History Source: Patient
All other systems: Reviewed and negative
Physical Exam
-
General: Well Developed, No Apparent Distress and Appears Chronically Ill
HEENT: Normocephalic, Atraumatic, Moist Mucous Membranes and Anicteric
Respiratory: Clear to Auscultation, Non Labored Respirations and Accessory Resp Muscle Use
Cardiac: Regular Rhythm and S1/S2; Negative Murmur, Rub or Gallop
GI: Soft, Nontender, Nondistended and Normal Bowel Sounds
Musculoskeletal: No Clubbing, No Cyanosis and No Edema
Skin: Warm and Dry; Negative Rash
Neuro: AO x 3, Nonfocal/Grossly Intact and Central Nerve's Intact
Psych: Calm
Data Reviewed
-
Labs: Labs Reviewed by me and Discussed with Patient
[2025-06-13] MEDS: HEPARIN 5000 UNITS SC ×3 (09:00→23:58)
[2025-06-13] MEDS: NOVOLOG FLEXPEN 5 UNITS SC ×3 (09:01→17:27)
[2025-06-13] MEDS: NOVOLOG FLEXPEN-LOW RESISTANCE 1 UNITS SC (09:02)
[2025-06-13] MEDS: LANTUS 0.15 UNITS SC (09:03)
[2025-06-13] MEDS: APRESOLINE 50 MG PO (09:04)
[2025-06-13] MEDS: PROCARDIA XL (EXTENDED RELEASE) 30 MG PO (09:04)
[2025-06-13] MEDS: ASPIR LOW (ENTERIC COATED) 81 MG PO (09:05)
[2025-06-13] MEDS: COLACE PO (09:05)
[2025-06-13] MEDS: COREG 6.25 MG PO ×2 (09:05→20:30)
[2025-06-13] MEDS: IMDUR (EXTENDED RELEASE) 30 MG PO (09:05)
[2025-06-13] MEDS: DEMADEX 20 MG PO (09:05)
[2025-06-13] MEDS: FLUSH (NSS) 1 FLUSH IV (09:06)
[2025-06-13] MEDS: MIRALAX PO (09:06)
--- NOTE | 2025-06-13 09:26 | PN.DE.MGMTRT ---
Insulin Management
- -
06/13/2025: Diabetes Management Follow up
Patient is 60-year-old male who was brought to the ED by ambulance due to difficulty getting up after sliding to the floor.
PMH: CAD s/p stenting, ICM with CHF EF 35% Diastolic dysfunction, JESSENIA, CKD stage III baseline Cr 2-3, Hypothyroid and IDDM.
Reports 2 days of elevated blood glucose readings, decided not to take his insulin despite the elevations because he had trouble walking to the fridge due to swelling in his feet. Glucose on admission 839, elevated beta hydroxybutyrate to 4.3. pH
was 7.27. Anion gap 14, suggestive of a mixed high anion gap and non-gap acidosis. He was started on HHS-DKA protocol. Prior to admission was taking Farxiga 10 mg daily, Lantus 15 units daily with Humalog AC. A1C on admission 6.2%. States he has
been diabetic for over 10 years. Sees [facility]ocrine associates Dr. Cordero, and uses CGM- Nirmal 3.
Pt is awake, alert, sitting up in chair in NAD, offers no complaints, flat affect, able to discuss diabetes care plan.
Transitioned from insulin infusion on 05/29. Patient's appetite has significantly improved. Lantus dose was increased to 20 units on 06/11.
06/12 Experienced hypoglycemia in AM-->Lantus was held. Received 8 units NovoLog at breakfast, had another episode of hypoglycemia, AC NovoLog was reduced to 5 units. No further episodes of hypoglycemia
Fasting glucose 179 POC this AM, will resume Lantus 15 units, 1st dose now. Cont AC NovoLog 5 units and low corrective with meals
Discussed with Nurse. Will cont to follow and adjust insulin dose if necessary.
Diabetes History
- -
Type of Diabetes: 2 requiring insulin
Pre-Admission Diabetes Regimen
Insulin Pump Settings
IP Diabetes Regimen
06/12/25 06/12/25 06/12/25
10:10 11:55 12:24
POC Glucose 117 H 69 L 56 L
06/12/25 06/12/25 06/12/25
12:43 15:04 17:01
POC Glucose 77 187 H 156 H
06/12/25 06/13/25 06/13/25
21:23 03:00 07:10
POC Glucose 160 H 184 H 179 H
Meal type: Breakfast
Meal type: Lunch
Amount consumed: 100%
Amount consumed: 100%
Patient Education
[2025-06-13 10:15] LABS: Calcium 8.2 mg/dl (8.4-10.2); Carbon Dioxide 24 mmol/L (22-30); Chloride 94 mmol/L (98-107); Estimated Creatinine Clearance 19 ml/min; Glucose 154 mg/dl (70-99); Potassium 5.1 mmol/L (3.5-5.1); Sodium 130 mmol/L (135-145); eGFR 16.43
[2025-06-13 10:31] LABS: Blood Urea Nitrogen 119 mg/dl (9-20)
[2025-06-13 11:07] VITALS: BP 161/78
--- NOTE | 2025-06-13 11:57 | W.PN.NEPH.PH ---
Today's Communication / Plan
-
Awaiting rehab stable from renal standpoint for discharge
Assessment/Plan
-
Assessment
JAMAR
CKD 4
Diabetes mellitus type 2
Hypertension
Edema
Heart failure reduced ejection fraction 35%
To thrive
Hyponatremia
Hyperkalemia
Metabolic acidosis
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
Plan
continue torsemide 20mg
monitor h/h, Last Procrit dose 06/09/2025
Will need to continue Procrit as an outpatient every 2 weeks
No urgent need of [facility], d/w pt that he will need access preparation soon
for SNF
Creatinine remains stable
Okay for discharge from renal standpoint
-
-
Date of Service: June 13, 2025
CC / HPI / ROS
-
Chief Complaint:
JAMAR
History of Present Illness:
JAMAR/Cr up at 4
BP low, variable
Hgb low at 7.1
Na 133 stable
K stable 4.7
Review of Systems:
no CP/SOB
Nonoliguric
Labs
-
Labs:
WBC 3.8 10^3/uL (4.8-10.8) L 06/12/25 07:29
RBC 2.38 10^6/uL (4.70-6.10) L 06/12/25 07:29
Hgb 7.3 g/dL (13.0-18.0) L 06/12/25 07:29
Hct 22.4 % (39.0-52.0) L 06/12/25 07:29
Plt Count 188 10^3/uL (130-400) 06/12/25 07:29
Sodium 130 mmol/L (135-145) L 06/13/25 08:45
Potassium 5.1 mmol/L (3.5-5.1) 06/13/25 08:45
Chloride 94 mmol/L (98-107) L 06/13/25 08:45
Carbon Dioxide 24 mmol/L (22-30) 06/13/25 08:45
BUN 119 mg/dl (9-20) H* 06/13/25 08:45
Creatinine 4.0 mg/dL (0.7-1.3) H 06/13/25 08:45
eGFR 16.43 06/13/25 08:45
Glucose 154 mg/dl (70-99) H 06/13/25 08:45
Calcium 8.2 mg/dl (8.4-10.2) L 06/13/25 08:45
Phosphorus 5.0 mg/dl (2.5-4.5) H 05/29/25 08:17
Mkt-L-Hlnihkxhzse Pept > 29007 pg/ml 05/29/25 03:48
Albumin 2.8 g/dl (3.5-5.0) L 06/02/25 07:22
Physical Exam
-
Vital Signs:
Vital Signs
Temp Pulse Resp BP Pulse Ox
97.4 F 62 18 161/78 96
06/13/25 11:07 06/13/25 11:07 06/13/25 11:07 06/13/25 11:07 06/13/25 11:07
Cardiovascular:: Regular rate and rhythm
Respiratory:: Bilateral: Coarse
Lung Excursion:: Normal
Abdomen:: Nontender and Soft
Bowel Sounds:: Normal
Extremity Edema:: None: Bilateral:
[2025-06-13 11:58] LABS: Glucose - Point of Care 242 mg/dl (70-99)
[2025-06-13] MEDS: NOVOLOG FLEXPEN-LOW RESISTANCE 2 UNITS SC (12:35)
--- NOTE | 2025-06-13 13:42 | CM ---
MD entered order for discharge.
Pt indicated acute rehab.
Spoke with [facility] rep [phone] she said she can accept pt after auth.
Called [phone] Nadeem spoke with Mignon Taylor provided for auth for acute re[facility].
Ref # is [id number] Clinical faxed to [phone] as instructed.Ref # [id number].
Waiting for determination.
[facility]
report [phone]
fax [phone]
PLAN To [facility] after auth obtained
[2025-06-13 15:31] VITALS: BP 108/61
--- NOTE | 2025-06-13 15:32 | PTCARENOTE ---
Pt AAO x3, TABOR; OOB in chair for most of shift; ambulatory to BR with assist x1/walker, sl unsteady w/OOB activity; denies weakness/dizziness. VSS. On room air- pulse ox 98%, no SOB noted. Abd large, soft, josue O well. Voids in BR without
difficulty. Skin pale/sallow; afebrile. Resting comfortably at present. Will continue to monitor.
[2025-06-13 16:40] LABS: Glucose - Point of Care 251 mg/dl (70-99)
[2025-06-13] MEDS: NOVOLOG FLEXPEN-LOW RESISTANCE 3 UNITS SC (17:27)
[2025-06-13] MEDS: APRESOLINE 75 MG PO (17:32)
[2025-06-13] MEDS: COLACE 100 MG PO (20:30)
[2025-06-13] MEDS: LIPITOR 40 MG PO (20:30)
[2025-06-13 21:22] LABS: Glucose - Point of Care 141 mg/dl (70-99)
[2025-06-13 23:25] VITALS: BP 148/72
[2025-06-14] MEDS: SYNTHROID 112 MCG PO (05:27)
[2025-06-14 06:00] VITALS: BMI 24.2
[2025-06-14 07:25] VITALS: BP 176/78
[2025-06-14 07:34] LABS: Glucose - Point of Care 100 mg/dl (70-99)
[2025-06-14] MEDS: NOVOLOG FLEXPEN-LOW RESISTANCE SC ×2 (07:36→12:38)
--- NOTE | 2025-06-14 07:53 | PN.DE.MGMTRT ---
Insulin Management
- -
06/14/2025: Diabetes Management Follow up
Patient is 60-year-old male who was brought to the ED by ambulance due to difficulty getting up after sliding to the floor.
PMH: CAD s/p stenting, ICM with CHF EF 35% Diastolic dysfunction, JESSENIA, CKD stage III baseline Cr 2-3, Hypothyroid and IDDM.
Reports 2 days of elevated blood glucose readings, decided not to take his insulin despite the elevations because he had trouble walking to the fridge due to swelling in his feet. Glucose on admission 839, elevated beta hydroxybutyrate to 4.3. pH
was 7.27. Anion gap 14, suggestive of a mixed high anion gap and non-gap acidosis. He was started on HHS-DKA protocol. Prior to admission was taking Farxiga 10 mg daily, Lantus 15 units daily with Humalog AC. A1C on admission 6.2%. States he has
been diabetic for over 10 years. Sees Endocrine associates Dr. Cordero, and uses CGM- Nirmal 3.
Pt is awake, alert, sitting up in chair in NAD, offers no complaints, flat affect, able to discuss diabetes care plan.
06/13 Patient received 15 units lantus in AM and 5 units novolog AC. Glucose pre meal 179 to 251 requiring 2 to 3 units corrective insulin.
06/14 Will increase breakfast novolog to 7 units and lunch and dinner novolog to 6 units. Continue lantus 15 units in AM.
Discussed with Nurse. Will cont to follow and adjust insulin dose if necessary.
Diabetes History
- -
Type of Diabetes: 2 requiring insulin
Pre-Admission Diabetes Regimen
06/13/25
08:45
Creatinine 4.0 H
Insulin Pump Settings
IP Diabetes Regimen
06/13/25 06/13/25 06/13/25
08:45 11:46 16:37
Glucose 154 H
POC Glucose 242 H 251 H
06/13/25 06/14/25
21:21 07:33
Glucose
POC Glucose 141 H 100 H
Meal type: Dinner
Meal type: Breakfast
Amount consumed: 95%
Amount consumed: 100%
Patient Education
[2025-06-14 08:03] LABS: Hematocrit 22.5 % (39.0-52.0); Hemoglobin 7.3 g/dL (13.0-18.0); Mean Corp Hgb Conc. 32.4 g/dL (33.0-37.0); Mean Corpuscular Volume 97.0 fL (80.0-94.0); Nucleated Red Blood Cells % 0 % (-); Platelet Count 192 10^3/uL (130-400); Red Cell Dist. Width 16.7 % (11.5-14.5)
[2025-06-14 08:35] VITALS: BP 138/71
--- NOTE | 2025-06-14 08:35 | W.PN.HOSP.TC ---
Today's Communication/Plan
-
Hold a.m. torsemide pending nephrology eval
Plan for [facility] when insurance Auth complete
Assessment / Plan
Assessment / Plan
#IDDM 2 with hyperglycemia
-Presented in DKA/HHS, status post aggressive IV fluids and insulin protocol with transition back to SQ regimen
-Was significantly hyperglycemic and insulin was uptitrated however recently has developed episodes of hypoglycemia
-Current regimen Lantus 15 units daily with NovoLog 6 units at lunch and dinner, NovoLog 8 units with breakfast
-Was briefly trialed on slightly higher doses of Lantus and aspart though became hypoglycemic
-Continue current insulin regimen, BG goal 140-180, avoid hypoglycemia
-DM team appreciated
#JAMAR on CKD stage IV
-Likely prerenal with intravascular volume depletion due to osmotic diuresis, significant hyperglycemia on arrival
-Creatinine baseline previously near 3.0, has since stabilized here near 3.5-4; question if this is new baseline
-Following aggressive IV fluids was resumed on torsemide for diuresis in the context of his CHF
-On 06/10 nephrology reduced torsemide to 20 mg, carvedilol to 6.25 mg
-Continue torsemide, trend BMP and UOP, monitor for azotemic symptoms
-Avoid nephrotoxins
#Chronic HFrecEF
-History of HFrEF with LVEF 35% from ischemic disease; echo here with LVEF 53%
-Home GDMT includes carvedilol, SGLT2i, aspirin, high intensity statin
-Maintained on loop diuresis with torsemide
-Appears euvolemic, monitor I's and O's + weights
#Hyponatremia
-Mild, clinically insignificant
-Stable with fluid restriction
#Primary hypertension
-Home regimen includes carvedilol twice daily, hydralazine BID, and isosorbide mononitrate
-Was started on Procardia while hospitalized here on 06/02
-Continue to monitor blood pressure and titrate as needed
#Hypothyroidism
-Home regimen includes levothyroxine
-Biochemically and clinically euthyroid
#CAD s/p PCI
#Dyslipidemia
-Home regimen includes beta-tiffany, high intensity statin, aspirin
-LDL goal <70 for secondary prevention
#Acute on chronic anemia of CKD
-Likely worsening anemia due to decreased EPO in the context of JAMAR
-S/p 1 unit PRBC here; no signs of bleeding
-Received erythropoietin stimulating agent with nephrology
-Continue to trend CBC and monitor for bleeding
Diet: Carbohydrate controlled, 2000-calorie
Thromboprophylaxis: SQ heparin
CODE STATUS: Full code
Disposition: Pending [facility] or other AIR when bed available
Discussed with nephrology
Anticipated Discharge: Today
Subjective/Interval History
-
Date of Service: June 14, 2025
Seen and examined at the bedside. No acute events reported overnight. AFVSS this morning morning
Labs with creatinine slightly increased to 4.4, has been near similar level here previously. Denies any metallic taste, asterixis, other uremic symptoms
States he feels quite well, denies any new complaints today.
Objective Data
-
Labs:
Laboratory Results
06/14/25
06:52
WBC 4.5 L
Hgb 7.3 L
Hct 22.5 L
Plt Count 192
Sodium Pending
Potassium Pending
Chloride Pending
Carbon Dioxide Pending
BUN Pending
Creatinine Pending
Glucose Pending
Calcium Pending
Vital Signs:
Vital Signs
Temp Pulse Resp BP Pulse Ox
98.2 F 62 16 138/71 92
06/14/25 07:25 06/14/25 08:35 06/14/25 07:25 06/14/25 08:35 06/14/25 07:25
I&O
06/13/25 06/14/25 06/15/25
06:59 06:59 06:59
Intake Total 960 / 960 1100 / 1100
Output Total 850 / 850
Balance 110 / 110 1100 / 1100
Review of Systems
-
History Source: Patient
All other systems: Reviewed and negative
Physical Exam
-
General: Well Developed, No Apparent Distress and Appears Chronically Ill
HEENT: Normocephalic, Atraumatic, Moist Mucous Membranes and Anicteric
Respiratory: Clear to Auscultation and Non Labored Respirations; Negative Accessory Resp Muscle Use
Cardiac: Regular Rhythm and S1/S2; Negative Murmur, Rub or Gallop
GI: Soft, Nontender, Nondistended and Normal Bowel Sounds
Musculoskeletal: No Clubbing, No Cyanosis and Other (Trace bilateral edema)
Skin: Warm and Dry; Negative Rash
Neuro: AO x 3, Nonfocal/Grossly Intact and Central Nerve's Intact; Negative Tremors
Psych: Calm
Data Reviewed
-
Labs: Labs Reviewed by me and Discussed with Physician (Nephrology)
[2025-06-14] MEDS: NOVOLOG FLEXPEN SC (08:39)
[2025-06-14] MEDS: IMDUR (EXTENDED RELEASE) 30 MG PO (08:40)
[2025-06-14] MEDS: APRESOLINE 50 MG PO (08:41)
[2025-06-14] MEDS: ASPIR LOW (ENTERIC COATED) 81 MG PO (08:41)
[2025-06-14] MEDS: PROCARDIA XL (EXTENDED RELEASE) 30 MG PO (08:41)
[2025-06-14 08:42] LABS: Calcium 8.0 mg/dl (8.4-10.2); Carbon Dioxide 25 mmol/L (22-30); Chloride 96 mmol/L (98-107); Estimated Creatinine Clearance 17 ml/min; Glucose 76 mg/dl (70-99); Potassium 5.0 mmol/L (3.5-5.1); Sodium 131 mmol/L (135-145); eGFR 14.65
[2025-06-14] MEDS: HEPARIN 5000 UNITS SC (08:42)
[2025-06-14] MEDS: COREG 6.25 MG PO (08:42)
[2025-06-14] MEDS: LANTUS 0.15 UNITS SC (08:43)
[2025-06-14] MEDS: NOVOLOG FLEXPEN 7 UNITS SC (08:44)
[2025-06-14] MEDS: COLACE PO (08:47)
[2025-06-14] MEDS: MIRALAX PO (08:47)
[2025-06-14] MEDS: DEMADEX PO (08:58)
[2025-06-14 08:59] LABS: Blood Urea Nitrogen 119 mg/dl (9-20)
--- NOTE | 2025-06-14 09:31 | CM ---
Addendum entered by Griselda Zuniga RN 06/14/25 12:19:
Maddie from [facility] # [phone] Pt approved form 7 skilled days from 06/14/25 to 06/20/25 auth # [id number] Next review date 06/21/25 fax to [phone]. [facility] notified of above.
Original Note:
MD entered order for discharge.
Called Maddie Nadeem [phone] this am she said she is working on his auth now and will call back as soon as completed.
Pt indicated acute rehab.
Spoke with [facility] rep [phone] she said she can accept pt after auth.
Called [phone] Nadeem spoke with Mignon Taylor provided for auth for acute rehab [facility].
Ref # is [id number] Clinical faxed to [phone] as instructed.Ref # [id number].
Waiting for determination.
[facility]
report [phone]
fax [phone]
PLAN To [facility] after auth obtained
[2025-06-14 12:32] LABS: Glucose - Point of Care 132 mg/dl (70-99)
--- NOTE | 2025-06-14 12:35 | W.PN.NEPH.PH ---
Today's Communication / Plan
-
follow labs and ok to hold torsemide
Assessment/Plan
-
Assessment
JAMAR
CKD 4
Diabetes mellitus type 2
Hypertension
Edema
Heart failure reduced ejection fraction 35%
To thrive
Hyponatremia
Hyperkalemia
Metabolic acidosis
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
Plan
cr up today at 4.4, holding torsemide 20mg
azotemia persists, PVR low 23cc
BP stable
monitor h/h low at 7.3, Last Procrit dose 06/09/2025
Will need to continue Procrit as an outpatient every 2 weeks
No urgent need of [facility], d/w pt that he will need access preparation soon
pending aurht for rehab
-
-
Date of Service: June 14, 2025
CC / HPI / ROS
-
Chief Complaint:
JAMAR
History of Present Illness:
JAMAR/Cr up at 4.4, BUN 119
BP variable
Hgb low at 7.3
Na 131 stable
K stable 5
Review of Systems:
no CP/SOB
Labs
-
Labs:
WBC 4.5 10^3/uL (4.8-10.8) L 06/14/25 06:52
RBC 2.32 10^6/uL (4.70-6.10) L 06/14/25 06:52
Hgb 7.3 g/dL (13.0-18.0) L 06/14/25 06:52
Hct 22.5 % (39.0-52.0) L 06/14/25 06:52
Plt Count 192 10^3/uL (130-400) 06/14/25 06:52
Sodium 131 mmol/L (135-145) L 06/14/25 06:52
Potassium 5.0 mmol/L (3.5-5.1) 06/14/25 06:52
Chloride 96 mmol/L (98-107) L 06/14/25 06:52
Carbon Dioxide 25 mmol/L (22-30) 06/14/25 06:52
BUN 119 mg/dl (9-20) H* 06/14/25 06:52
Creatinine 4.4 mg/dL (0.7-1.3) H* 06/14/25 06:52
eGFR 14.65 06/14/25 06:52
Glucose 76 mg/dl (70-99) 06/14/25 06:52
Calcium 8.0 mg/dl (8.4-10.2) L 06/14/25 06:52
Phosphorus 5.0 mg/dl (2.5-4.5) H 05/29/25 08:17
Tnu-M-Hyzkgtrfbyk Pept > 07621 pg/ml 05/29/25 03:48
Albumin 2.8 g/dl (3.5-5.0) L 06/02/25 07:22
Physical Exam
-
Vital Signs:
Vital Signs
Temp Pulse Resp BP Pulse Ox
98.2 F 62 16 138/71 96
06/14/25 07:25 06/14/25 08:35 06/14/25 07:25 06/14/25 08:35 06/14/25 10:27
Cardiovascular:: Regular rate and rhythm
Respiratory:: Bilateral: CTA
Lung Excursion:: Normal
Abdomen:: Nontender and Soft
Bowel Sounds:: Normal
Extremity Edema:: +1: Bilateral: (trace)
[place] Catheter: No
--- NOTE | 2025-06-14 12:45 | W.DCSUMMARY ---
Discharge Summary
Discharge Data
Date of Admission: 05/29/25
Date of Discharge: 06/14/25
Total time spent discharging patient (in min): 38
-
Pending Results: No
Hospital Course
Discharging physician: Adelso Vaughan DO
Disposition: [facility]
Primary discharge diagnoses:
HHS/DKA
IDDM
HFrecEF
JAMAR on CKD stage III-IV
AoCKD s/p 1 unit PRBC
Gallbladder polyp
Medication noncompliance
Secondary discharge diagnoses:
History of HFrEF with LVEF 35%
CAD s/p PCI
Hypothyroidism
CKD stage III-IV
AO CKD
JESSENIA
Hypertension
Dyslipidemia next
Hospital course:
60-year-old male that presented to the hospital with elevated glucose, acidemia and ketonemia due to DKA/HHS. Patient noted that he stopped taking his medications at home despite having them in stock as he did not feel like taking them. Was
started on IV insulin protocol and admitted to the ICU where he was monitored closely with serial BMP and his anion gap closed and glucose levels improved towards normal ranges. He was subsequently transition to subcutaneous Lantus and aspart which
was titrated during the hospitalization. Had some hypoglycemia then limited up titration and ultimately was discharged on Lantus 15 units, aspart 8 units with breakfast and 6 units with lunch or dinner.
Was also treated for decompensated heart failure while here also in the context of noncompliance with diuretics and GDMT. Previously with LVEF as low as 35%, likely secondary to ischemic etiology following PCI. Repeat echocardiogram here
demonstrated recovered EF within the normal range. Was started on diuretics and his home Jardiance was discontinued. He clinically improved and ultimately was transitioned to torsemide 20 mg daily. Heart failure was complicated by cardiorenal JAMAR
and nephrology assessed patient and help guide diuresis. Was euvolemic on oral diuretics at time of discharge.
Due to his acutely worsened renal function he developed accelerated AOCKD and received 1 unit of PRBC in the hospital. No signs of bleeding during the hospitalization. He responded appropriately to 1 unit of PRBC and eventually hemoglobin
stabilized in the range of 7-7.5. Patient will continue to follow with nephrology at time of discharge and have BUD administrations during hemodialysis in the future.
Consultants:
Nephrology: Galen Montejo MD
Pulmonology: Juaquin Butcher MD
Cardiology: Shane Amaya MD
Diabetes nurse practitioner: Crystal Dawson NP
Pertinent imaging findings:
Renal ultrasound (05/29/2025)
IMPRESSION: No shadowing calculus or hydronephrosis, bilaterally. Mild increased renal cortical echogenicity suggesting medical renal disease. Renal cysts, as described. Diffuse urinary bladder wall thickening. Nonspecific free fluid in the pelvis.
Consider further evaluation/follow-up CT if indicated.
Abdomen ultrasound (05/31/2025)
IMPRESSION: Small bilateral pleural effusions. Minimal amount of ascites adjacent to the liver in the right upper quadrant. Gallbladder appears contracted with resultant thickened wall. There are multiple gall bladder polyps, largest measuring up to
9 mm. Based on recommendations from the [employer], follow-up ultrasound with attention the gallbladder is recommended in one year.
Transthoracic echocardiogram (05/29/2025)
SUMMARY
1. Left ventricular ejection fraction is normal with an ejection fraction of 52 % by Aguilera's
2. Global strain -20.2%.
3. Trivial pericardial effusion. Pleural effusion present.
4. Moderate concentric left ventricular hypertrophy.
Procedures: N/A
Follow-up:
Family doctor in 1 week, consider endocrine referral
Cardiology in 1 to 2 weeks
Nephrology in 1 to 2 weeks
Repeat BMP on day 1 of acute rehab and again at day 3-5
Repeat ultrasound to assess gallbladder is 1 year after initial study
Discharge Plan
-
Patient Disposition: Acute Rehab Facility
Discharge Diagnosis/Procedures: Acute:
DKA/HHS
IDDM
HFrecEF
JAMAR on CKD stage IV
Anemia of chronic kidney disease on BUD
Chronic:
Hypothyroidism
CAD s/p PCI
JESSENIA
Hypertension
Dyslipidemia
Noncompliance
Condition: Fair
Diet: Diabetic, Carb Controlled and Other diet
Additional Diets: Low sodium, low potassium
Activity: As tolerated
Driving Restrictions: Not until seen by your Dr
Bathing Restrictions: None
Blood Work: Repeat BMP on morning of 06/15/2025 and continue with torsemide if creatinine stable
Repeat BMP, CBC with differential in 3 to 5 days
Others Tests: Abdominal ultrasound in 1 year to follow-up gallbladder polyps
Instructions: *PCP/Other Tube Wrapper Heart Failure Instructions
Referrals:
Emeterio Santos DO [Active, Nephrology] - in one to two weeks
Galen Arteaga PA-C [Family Provider, Family Practice]
Jorge A Snyder MD [Active, Cardiology] - in one to two weeks
Additional Discharge Medication Instructions: Reduced carvedilol from 12.5 mg to 6.25 mg twice daily
Reduced torsemide from 30 mg to 20 mg daily
Continue hydralazine 50 mg in the morning and 75 mg in the evening
Continue isosorbide mononitrate 30 mg daily and nifedipine 30 mg daily
Insulin regimen: Lantus 15 units daily, aspart 8 units with breakfast, 6 units with lunch and dinner
Prescriptions:
New
carvedilol 6.25 mg Tablet
6.25 mg PO BID Qty: 30 0RF
torsemide 20 mg Tablet
20 mg PO DAILY Qty: 30 0RF
hydralazine 50 mg Tablet
75 mg PO QPM Qty: 30 0RF
isosorbide mononitrate 30 mg Tablet Extended Release 24 Hr
30 mg PO DAILY 30 Days Qty: 30 0RF
insulin aspart U-100 100 unit/mL (3 mL) Insulin Pen
6 unit SC DAILY@1130,1630 Qty: 15 0RF
insulin aspart U-100 100 unit/mL (3 mL) Insulin Pen
8 unit SC DAILY@0730 Qty: 15 0RF
insulin aspart U-100 100 unit/mL (3 mL) insulin pen
1 sliding scale dose SC AC Qty: 15 0RF
nifedipine 30 mg Tablet Extended Release
30 mg PO DAILY Qty: 30 0RF
hydralazine 50 mg Tablet
50 mg PO DAILY 30 Days Qty: 30 0RF
Continued
atorvastatin 40 MG tablet
40 mg PO HS
levothyroxine [Synthroid] 112 mcg Tablet
112 mcg PO DAILY
omega-3 fatty acids Capsule
1,000 mg PO DAILY
aspirin 81 mg Tablet,Delayed Release (Dr/Ec)
81 mg PO DAILY
insulin glargine 100 unit/mL (3 mL) Insulin Pen
15 unit SC DAILY Qty: 0 0RF
Discontinued
carvedilol [Coreg] 12.5 mg Tablet
12.5 mg PO BID
insulin lispro [Humalog KwikPen Insulin] 100 unit/mL Insulin Pen
7 sliding scale dose SC AC
dapagliflozin propanediol [Farxiga] 10 mg Tablet
10 mg PO DAILY
hydralazine 50 mg Tablet
50 mg PO BID Qty: 60 0RF
torsemide 20 mg tablet
30 mg PO DAILY Qty: 60 0RF
Discharge Orders:
Discharge Patient (As Directed); Ordered 06/12/25
Ordered By: Adelso Vaughan
Discharge Date and Time
Print Language: HONDURAN
[2025-06-14] MEDS: NOVOLOG FLEXPEN 6 UNITS SC (12:56)
[2025-06-14 13:37] VITALS: BP 120/63
[2025-06-14 15:51] LABS: Glucose - Point of Care 175 mg/dl (70-99)
[2025-06-14 16:07] VITALS: BP 120/63; PULSE 53
[2025-06-14 16:51] LABS: Glucose - Point of Care 161 mg/dl (70-99)
== END 2025-06-14 16:16 | DRG 637 ==
LOC: 4 EAST ACU 05:45
PROVIDERS: Hospitalist; Internal Medicine; Nurse Practitioner Family; ADMITTING PHYSICIAN Internal Medicine; ATTENDING PHYSICIAN Internal Medicine; CONSULT PHYSICIAN Physical Medicine & Rehabilitation; EMERGENCY PHYSICIAN Student in an Organized Health Care Education/Training Program; FAMILY PHYSICIAN Physician Assistant Medical; OTHER PHYSICIAN Internal Medicine; OTHER PHYSICIAN Internal Medicine Cardiovascular Disease; OTHER PHYSICIAN Specialist
PROC: 30233N1 Transfusion of Nonautologous Red Blood Cells into Peripheral Vein, Percutaneous Approach (ICD-10-PCS; 2025-06-03)
PROC: 3E02340 Introduction of Influenza Vaccine into Muscle, Percutaneous Approach (ICD-10-PCS; 2025-06-12)
DX: E11.00 Type 2 diabetes mellitus with hyperosmolarity without nonketotic hyperglycemic-hyperosmolar coma (NKHHC) (principal); I50.33 Acute on chronic diastolic (congestive) heart failure; I13.0 Hypertensive heart and chronic kidney disease with heart failure and stage 1 through stage 4 chronic kidney disease, or unspecified chronic kidney disease; N17.9 Acute kidney failure, unspecified; N18.4 Chronic kidney disease, stage 4 (severe); E87.1 Hypo-osmolality and hyponatremia; I5A Non-ischemic myocardial injury (non-traumatic); D61.818 Other pancytopenia; J98.11 Atelectasis; E11.10 Type 2 diabetes mellitus with ketoacidosis without coma; I25.10 Atherosclerotic heart disease of native coronary artery without angina pectoris; I95.1 Orthostatic hypotension; E88.09 Other disorders of plasma-protein metabolism, not elsewhere classified; G47.33 Obstructive sleep apnea (adult) (pediatric); I25.5 Ischemic cardiomyopathy; E03.9 Hypothyroidism, unspecified; E86.9 Volume depletion, unspecified; E87.5 Hyperkalemia; E78.00 Pure hypercholesterolemia, unspecified; E11.65 Type 2 diabetes mellitus with hyperglycemia; E11.22 Type 2 diabetes mellitus with diabetic chronic kidney disease; E11.319 Type 2 diabetes mellitus with unspecified diabetic retinopathy without macular edema; E11.40 Type 2 diabetes mellitus with diabetic neuropathy, unspecified; D63.1 Anemia in chronic kidney disease; D69.6 Thrombocytopenia, unspecified; N28.1 Cyst of kidney, acquired; K82.4 Cholesterolosis of gallbladder; E11.649 Type 2 diabetes mellitus with hypoglycemia without coma; T38.3X6A Underdosing of insulin and oral hypoglycemic [antidiabetic] drugs, initial encounter; T50.1X6A Underdosing of loop [high-ceiling] diuretics, initial encounter; Y92.009 Unspecified place in unspecified non-institutional (private) residence as the place of occurrence of the external cause; T68.XXXA Hypothermia, initial encounter; Z60.2 Problems related to living alone; Z91.128 Patient's intentional underdosing of medication regimen for other reason; Z87.891 Personal history of nicotine dependence; Z79.4 Long term (current) use of insulin; Z79.899 Other long term (current) drug therapy; Z79.890 Hormone replacement therapy; Z79.82 Long term (current) use of aspirin; Z95.5 Presence of coronary angioplasty implant and graft; Z87.01 Personal history of pneumonia (recurrent); Z23 Encounter for immunization; Z80.0 Family history of malignant neoplasm of digestive organs; Z82.49 Family history of ischemic heart disease and other diseases of the circulatory system; Z79.84 Long term (current) use of oral hypoglycemic drugs; Z59.71 Insufficient health insurance coverage
CPT/HCPCS: 71046; 76700; 76775; 80048; 80053; 80076; 81003; 81015; 82010; 82550; 82570; 82805; 82947; 82962; 83735; 83880; 84100; 84132; 84300; 84443; 84484; 85025; 85027; 86850; 86900; 86901; 86920; 90656; 93005; 93308; 93321; 93325; 96374; 96376; 97116; 97163; 97167; 97530; 97535; 99291; G0008; J3480; P9016; Q5106

== ENCOUNTER 2025-06-14 21:50 | Inpatient (IN) | payer OTHER, SELFPAY ==
--- NOTE | 2025-06-14 17:44 | ED.GENMED ---
History of Present Illness
General
Chief Complaint: Breathing Problem
Time Seen by Provider: 06/14/25 17:44
History of Present Illness
History of Present Illness:
FOCUSED PAST MEDICAL HISTORY
- HFrEF, hypothyroidism, CKD high blood pressure
REVIEW OF OLD RECORDS
- The patient was admitted here with DKA/HHS after he stopped taking his medication. He was also treated for decompensated heart failure.
Note:
CHIEF COMPLAINT(S)
Low oxygen saturation levels.
HISTORY OF PRESENT ILLNESS
The patient is a 60-year-old male with a notable medical history of heart failure, who was recently discharged from the hospital and sent to rehabilitation. The patient was returned to the emergency room by the rehabilitation center due to low
oxygen levels. The patient denies experiencing shortness of breath, even though oxygen saturation levels have been reported at approximately 88%. There is no reported weight change management any specific period, and the patient acknowledges taking a
diuretic medication. Physical examination reveals leg swelling. When hospitalized previously, the patient was on oxygen, and it was noted that there has been some improvement in heart function based on recent echocardiogram findings. There is no
reported history of blood clots. A chest X-ray and blood tests are planned for further evaluation of the patients condition.
SOCIAL HISTORY
The patient does not report any feelings of distress or any compelling need to revisit the emergency room due to their current condition.
PHYSICAL EXAM
General: Alert, no acute distress. The patient appears somewhat chronically ill in appearance and pale
Respiratory: Oxygen saturation recorded at 88% but he reports no shortness of breath, breath sounds are fairly clear
Neurological: Alert and cooperative, oriented to person, place, time, and situation.
- HEENT: Moist oral mucosa
- Cardiovascular: No murmurs, normal heart rate, regular rhythm, No chest wall tenderness
- Pulmonary: No respiratory distress, breath sounds are clear and equal
- Abdomen: Soft with no peritoneal signs, no tenderness
- Neurologic: Excellent strength all extremities, no coordination deficits
- Psychiatric: Appropriate mental status, normal insight and judgement, somewhat of a flat affect
- Extremities: Nontender, 1+ bilateral lower extremity edema, moves all extremities equally
- Skin: Pale
PROBLEM LIST
Acute:
- Low oxygen saturation.
- Leg swelling.
Chronic:
- Heart failure.
PLAN
1. A chest X-ray will be obtained.
2. Blood work will be performed to evaluate the current status further.
3. Review of previous medical records to assess past treatments and heart function improvements.
DIFFERENTIAL DIAGNOSIS
The Differential Diagnosis includes, in no particular order and is not limited to:
1. Heart failure exacerbation.
2. Pulmonary edema.
3. Chronic obstructive pulmonary disease.
4. Pulmonary embolism.
5. Pneumonia.
6. Interstitial lung disease.
7. Pleural effusion.
8. Anemia.
9. Myocardial infarction.
10. Sleep apnea.
RADIOLOGY
- Chest x-ray shows worsening of left-sided pleural effusion
EKG
- Sinus 51, normal axis, no significant change from 05/29/2025
LABS
- BNP 18,000, hemoglobin is 8.0, was 7.1 this morning, CKD is noted
UPDATE
-SUMMARY OF ENCOUNTER
The patient, a 60-year-old male with a history of heart failure, was seen in the emergency department due to low oxygen saturation levels, reported at 88%. Previously, the patient was hospitalized and showed some improvement in heart function, but
was brought back by the rehabilitation center. A chest X-ray revealed significant fluid buildup on the left side outside of the lung, raising concerns. A BNP level, indicative of heart failure, was high but had improved slightly from previous
readings. The decision was made to admit the patient for continued care, including IV diuretic therapy, due to concerns about fluid overload and low oxygen levels.
DISPOSITION
Admit.
ASSESSMENT
The patient presents with low oxygen saturation and suspected pleural effusion, possibly linked to heart failure exacerbation. A slightly improved yet elevated BNP suggests ongoing heart failure management issues.
PLAN
Admit the patient to the hospital for monitoring and management of low oxygen levels and pleural effusion. Initiate intravenous diuretic therapy to manage fluid overload.
INDEPENDENT REVIEW OF LABS AND INTERPRETATION OF TESTS
My independent review of the chest X-ray indicates a significant fluid buildup on the left side outside of the lung, suggesting pleural effusion.
My independent review of BNP reveals an elevated level, though slightly improved from previous measurements, indicating persistent heart failure.
MEDICATION RECONCILIATION
Continue patient on intravenous diuretic therapy to address fluid overload.
MEDICAL DECISION MAKING
-Complexity of Data Reviewed: Chronic conditions affecting care including heart failure. Differential Diagnosis includes potential heart failure exacerbation and pulmonary edema.
-Data:
Category 1
My independent interpretation of the chest x-ray indicates pleural effusion on the left side.
Category 2
Discussion of management with hospitalists to coordinate inpatient care.
-Risk:
Consideration of Admission/Observation: Escalation of care including admission was necessary given the complexity and risk of the patients presenting complaint, exam findings, and underlying heart failure. The patient will be monitored in the
hospital with IV diuretic therapy for safe management.
DIAGNOSIS
Heart failure exacerbation (ICD-10: I50.9).
Pleural effusion, not elsewhere classified (ICD-10: J90).
Past History
Past History
ED Past Medical History: HTN, Hypercholesterolemia and IDDM
ED Past Surgical History: None
Social History
Tobacco: Former smoker
Alcohol: Occasional
Personal:
Living: with family
Employment: Other
Phy Exam
Physical Exam
Physical Exam:
See HPI
Scores
Heart Failure Risk
Heart Failure Risk Score: Not Applicable
Course
Orders/Labs/Results
Orders:
Orders
06/14/25 17:49
ECG [Electrocardiogram (*1)] Urgent
Reason for Study: Shortness of Breath
EKG- Treatment ONCE
06/14/25 18:02
CR Chest Portable - 1 View Urgent
Comment:
Reason For Exam: hypoxia h/o CHF
Reason Study Needs to be Portable: Patient Unstable
06/14/25 18:16
Type+Screen Urgent
Complete Blood Count/With Diff Urgent
Comprehensive Metabolic Panel Urgent
NT-proBNP Urgent
06/14/25 19:18
Furosemide [Lasix] 40 mg IV NOW STA
Abnormal Lab Results
06/14/25
18:16
WBC 4.7 L 10^3/uL
(4.8-10.8)
RBC 2.54 L 10^6/uL
(4.70-6.10)
Hgb 8.0 L g/dL
(13.0-18.0)
Hct 24.0 L %
(39.0-52.0)
MCV 94.5 H fL
(80.0-94.0)
MCH 31.5 H pg
(27.0-31.0)
RDW 16.7 H %
(11.5-14.5)
Absolute Lymphs (auto) 0.5 L 10^3/uL
(1.2-3.4)
Neutrophils % 75.5 H %
(42.2-75.2)
Lymphocytes % 10.3 L %
(20.5-51.1)
Monocytes % 11.3 H %
(1.7-9.3)
Sodium 130 L mmol/L
(135-145)
Potassium 5.4 H mmol/L
(3.5-5.1)
Chloride 94 L mmol/L
(98-107)
BUN 121 H* mg/dl
(9-20)
Creatinine 4.5 H* mg/dL
(0.7-1.3)
Glucose 118 H mg/dl
(70-99)
06/14/25 18:16
06/14/25 18:16
Vital Signs
Initial and Last Documented VS:
Initial Vital Signs
Temp BP
36.3 C 133/69
06/14/25 17:45 06/14/25 17:45
Last Documented Vital Signs
Temp Pulse Resp BP Pulse Ox
36.3 C 50 19 142/70 91
06/14/25 17:45 06/14/25 19:34 06/14/25 19:00 06/14/25 19:34 06/14/25 19:00
*Pulse Oximetry
Patient hypoxic: yes (87% on room air with an excellent waveform, placed on 2 L nasal cannula)
*Critical Care Note
Total Time (30-74mins, 75-104mins- exclusive of procedures): Not Applicable
ED Attending Note
-
Portions of this chart may have been created with voice recognition software.� Occasional wrong word or��sound alike� substitutions may have occurred due to the inherent limitations of voice recognition software.
Discharge Plan
Departure
Patient Disposition: Admit
Date of Disposition: 06/14/25
Time of Disposition: 20:35
Presentation/result/management discussed w/ accepting MD/DO: Hospitalist
Discharge Problem:
Pleural effusion
Prescriptions:
No Action
atorvastatin 40 MG tablet
40 mg PO HS
levothyroxine [Synthroid] 112 mcg Tablet
112 mcg PO DAILY
omega-3 fatty acids Capsule
1,000 mg PO DAILY
aspirin 81 mg Tablet,Delayed Release (Dr/Ec)
81 mg PO DAILY
insulin glargine 100 unit/mL (3 mL) Insulin Pen
15 unit SC DAILY Qty: 0 0RF
carvedilol 6.25 mg Tablet
6.25 mg PO BID Qty: 30 0RF
torsemide 20 mg Tablet
20 mg PO DAILY Qty: 30 0RF
hydralazine 50 mg Tablet
75 mg PO QPM Qty: 30 0RF
isosorbide mononitrate 30 mg Tablet Extended Release 24 Hr
30 mg PO DAILY 30 Days Qty: 30 0RF
insulin aspart U-100 100 unit/mL (3 mL) Insulin Pen
6 unit SC DAILY@1130,1630 Qty: 15 0RF
insulin aspart U-100 100 unit/mL (3 mL) Insulin Pen
8 unit SC DAILY@0730 Qty: 15 0RF
insulin aspart U-100 100 unit/mL (3 mL) insulin pen
1 sliding scale dose SC AC Qty: 15 0RF
nifedipine 30 mg Tablet Extended Release
30 mg PO DAILY Qty: 30 0RF
hydralazine 50 mg Tablet
50 mg PO DAILY 30 Days Qty: 30 0RF
Referrals:
AMIE WOOD [Other]
Interventions
Interventions:
*General Assessment Last Done: 06/14/25 18:15
ED- Cardiac Assessment Last Done: 06/14/25 18:15
ED- Pulmonary Assessment Last Done: 06/14/25 18:15
Discharge Date and Time
Print Language: KHMER
[2025-06-14 17:45] VITALS: BP 133/69; BMI 25.5
[2025-06-14 17:49] VITALS: BP 133/69
[2025-06-14 18:00] VITALS: BP 136/70
[2025-06-14 18:36] LABS: Hematocrit 24.0 % (39.0-52.0); Hemoglobin 8.0 g/dL (13.0-18.0); Mean Corp Hgb Conc. 33.3 g/dL (33.0-37.0); Mean Corpuscular Volume 94.5 fL (80.0-94.0); Nucleated Red Blood Cells % 0 % (-); Platelet Count 217 10^3/uL (130-400); Red Cell Dist. Width 16.7 % (11.5-14.5)
[2025-06-14 18:56] LABS: ALT (SGPT) 21 U/L (0-50); AST (SGOT) 31 U/L (17-59); Albumin 3.9 g/dl (3.5-5.0); Alkaline Phosphatase 124 U/L (38-126); Carbon Dioxide 24 mmol/L (22-30); Estimated Creatinine Clearance 17 ml/min; Glucose 118 mg/dl (70-99); Potassium 5.4 mmol/L (3.5-5.1); eGFR 14.26
[2025-06-14 19:00] VITALS: BP 142/70
[2025-06-14 19:01] LABS: Calcium 8.4 mg/dl (8.4-10.2); Chloride 94 mmol/L (98-107); Sodium 130 mmol/L (135-145); Total Protein 6.8 g/dl (6.3-8.2)
[2025-06-14 19:14] LABS: Blood Urea Nitrogen 121 mg/dl (9-20)
[2025-06-14] MEDS: LASIX 40 MG IV (19:34)
--- NOTE | 2025-06-14 20:47 | HPS.HSE ---
Family Physician
-
Family Physician: AMIE WOOD
Chief Complaint
-
low oxygen levels
History of Present Illness
Mr. Crow Barahona is a 60 yo man with hx HFrEF with EF 35%, CAD s/p PCI, IDDM, essential HTN, JESSENIA, medication non-compliance and recent admission 05/29-06/14/25 for HHS/DKA and HF exacerbation discharged to [facility] this evening with new
oxygen needs up to 4L.
Patient states he was feeling fine. Denies shortness of breath or chest pain. He was noted to by hypoxic at [facility] and so sent here. No fevers/chills, cough, congestion. He has increased LE swelling since being in the hospital. No abdominal pain.
No nausea/vomiting/diarrhea.
Medical History
Past Medical History
Past Medical History: Reports Other ( HFrEF with EF 35%, CAD s/p PCI, IDDM, essential HTN, JESSENIA, medication non-compliance and DKA admission )
Past Surgical History: Reports None
Social History
Tobacco: Non-smoker
Alcohol: None
Drug: None
Family History
Family History: Not pertinent
Allergies / Home Medications
Allergies reflects when Allergies were last updated in [facility].
Home Medications with original date entered in [facility]
Allergy/Medication List:
Allergies
Allergy/AdvReac Type Severity Reaction Status Date / Time
No Known Allergies Allergy Verified 06/14/25 17:45
Home Medications
atorvastatin 40 mg tablet 40 mg PO HS High Cholesterol 02/05/22
levothyroxine 112 mcg tablet (Synthroid) 112 mcg PO DAILY Thyroid 11/01/23
omega-3 fatty acids 1,000 mg PO DAILY Supplement 04/15/24
aspirin 81 mg tablet,delayed release 81 mg PO DAILY Blood Clot Prevention/Tx 11/17/24
insulin glargine 100 unit/mL (3 mL) subcutaneous pen 15 unit (0.15 mL) SC DAILY Diabetes #0 mL 11/20/24
carvedilol 6.25 mg tablet 6.25 mg PO BID #30 tabs 06/12/25
hydralazine 50 mg tablet 50 mg PO DAILY 30 days #30 tabs 06/12/25
hydralazine 50 mg tablet 75 mg (1.5 x 50 mg) PO QPM #30 tabs 06/12/25
insulin aspart U-100 100 unit/mL (3 mL) subcutaneous pen 1 sliding scale dose SC AC #15 mL 06/12/25
insulin aspart U-100 100 unit/mL (3 mL) subcutaneous pen 6 unit (0.06 mL) SC DAILY@1130,1630 #15 mL 06/12/25
insulin aspart U-100 100 unit/mL (3 mL) subcutaneous pen 8 unit (0.08 mL) SC DAILY@0730 #15 mL 06/12/25
isosorbide mononitrate 30 mg tablet,extended release 24 hr 30 mg PO DAILY 30 days #30 tabs 06/12/25
nifedipine 30 mg tablet,extended release 30 mg PO DAILY #30 tabs 06/12/25
torsemide 20 mg tablet 20 mg PO DAILY #30 tabs 06/12/25
*awaiting med rec completion
Review of Systems
-
History Source: Patient
A 12 point ROS was completed and negative except as noted: Yes
Physical Exam
Vital Signs
Vital Signs
Temp Pulse Resp BP Pulse Ox
97.3 F 50 19 142/70 91
06/14/25 17:45 06/14/25 19:34 06/14/25 19:00 06/14/25 19:34 06/14/25 19:00
Physical Exam
General: No Apparent Distress and Conversant
HEENT: PERRLA
Respiratory: Decreased Breath Sounds (at bases)
Cardiac: S1/S2, Regular Rhythm and JVD
GI: Non Tender
Musculoskeletal: Edema, Left Lower Extremity and Edema, Right Lower Extremity
Skin: Warm and Dry; No Rash
Neuro: AO x 3
Psych: Calm
Laboratory Results
-
06/14/25 18:16
06/14/25 18:16
Laboratory Results
Total Bilirubin 0.4 mg/dl (0.2-1.3) 06/14/25 18:16
AST 31 U/L (17-59) 06/14/25 18:16
ALT 21 U/L (0-50) 06/14/25 18:16
Alkaline Phosphatase 124 U/L (38-126) 06/14/25 18:16
Data Reviewed
-
Diagnostic Radiology: Report Reviewed by me
Lab Data: Labs Reviewed by me
Impression/Plan
-
Mr. Crow Barahona is a 60 yo man with hx HFrEF with EF 35%, CAD s/p PCI, IDDM, essential HTN, JESSENIA, medication non-compliance and recent admission 05/29-06/14/25 for HHS/DKA and HF exacerbation discharged to [facility] this evening with new
oxygen needs up to 4L. Patient found to have worsening renal function and fluid overload.
Triage VS: T 36.3, P 50, RR 19, BP 142/70, SpO2 91%
LABS: WBC 4.7, Hg 8, PLT 217, Na 130, K+ 5.4, BUN 121, K+ 4.5, Glucose 118, BNP 18,100
Weight up to 73.7 kg (65.9 -66 kg several days ago)
CXR:
IMPRESSION:
CHF with large left and small right pleural effusions with associated atelectasis and/or pneumonia, progressed from prior.
MAR: IV lasix 40mg
Acute hypoxic respiratory insufficiency
Heart Failure reduced EF, Acute Exacerbation
CKD IV with acute on chronic renal failure
Large left pleural effusion and small right pleural effusion
-s/p Lasix 40mg IV x 1 in the ER
-admit to telemetry
-continue Lasix 40mg IV BID with careful monitoring of renal function
-Nephrology consult
-IR consult for left thoracentesis
-continue SET UP AND CHARGER Coreg, Imdur, Hydralazine
-daily weights, strict I/O
Coronary Artery Disease
-s/p PCI 05/22
-continue SET UP AND CHARGER Aspirin, Statin, Coreg
Essential HTN
-SET UP AND CHARGER Coreg, Imdur, Nifedipine, Hydralazine
IDDM
-patient admitted for DKA last admission
-with worsening renal function will lower insulin dosing slightly: 5 units in AM; 4 units lunch and dinner; Lantus 10 units daily - adjust as needed
-ISS low
Hypothyroidism
-SET UP AND CHARGER Synthroid
DVT PPx Hep subQ
FULL CODE
76 minutes spent on patient care
[2025-06-14 23:00] VITALS: BP 153/76
[2025-06-14 23:17] LABS: Glucose - Point of Care 190 mg/dl (70-99)
[2025-06-14 23:31] VITALS: BMI 25.1
[2025-06-14] MEDS: APRESOLINE 75 MG PO (23:31)
[2025-06-14] MEDS: COREG 6.25 MG PO (23:42)
[2025-06-14] MEDS: LIPITOR 40 MG PO (23:42)
[2025-06-15] VITALS (10 sets, daily range): BP systolic 46–175; BP diastolic 45–77; PULSE 56–59; O2SAT 94–96; BMI 25.1; BMI 24.8
[2025-06-15] MEDS: SYNTHROID 112 MCG PO (05:51)
[2025-06-15 06:23] LABS: Calcium 7.9 mg/dl (8.4-10.2); Carbon Dioxide 26 mmol/L (22-30); Chloride 95 mmol/L (98-107); Estimated Creatinine Clearance 17 ml/min; Glucose 95 mg/dl (70-99); LDH 169 U/L (120-246); Magnesium 2.3 mg/dl (1.6-2.3); Potassium 4.8 mmol/L (3.5-5.1); Sodium 131 mmol/L (135-145); Total Protein 5.9 g/dl (6.3-8.2); eGFR 14.65
[2025-06-15 06:39] LABS: Hematocrit 20.6 % (39.0-52.0); Hemoglobin 7.0 g/dL (13.0-18.0); Mean Corp Hgb Conc. 34.0 g/dL (33.0-37.0); Mean Corpuscular Volume 93.2 fL (80.0-94.0); Platelet Count 181 10^3/uL (130-400); Red Cell Dist. Width 16.2 % (11.5-14.5)
[2025-06-15 06:48] LABS: Blood Urea Nitrogen 122 mg/dl (9-20)
[2025-06-15 08:17] LABS: Glucose - Point of Care 114 mg/dl (70-99)
[2025-06-15] MEDS: NOVOLOG FLEXPEN-LOW RESISTANCE SC ×2 (08:19→16:50)
[2025-06-15] MEDS: NOVOLOG FLEXPEN 5 UNITS SC (08:21)
[2025-06-15] MEDS: LANTUS 0.1 UNITS SC (08:22)
[2025-06-15] MEDS: IMDUR (EXTENDED RELEASE) 30 MG PO (08:23)
[2025-06-15] MEDS: PROCARDIA XL (EXTENDED RELEASE) 30 MG PO (08:23)
[2025-06-15] MEDS: ASPIR LOW (ENTERIC COATED) 81 MG PO (08:23)
[2025-06-15] MEDS: APRESOLINE 50 MG PO (08:23)
[2025-06-15] MEDS: COREG 6.25 MG PO ×2 (08:23→22:14)
[2025-06-15] MEDS: HEPARIN 5000 UNITS SC ×2 (08:24→22:15)
[2025-06-15] MEDS: LASIX 40 MG IV ×2 (08:24→16:56)
--- NOTE | 2025-06-15 10:25 | W.PN.HOSP.TC ---
Today's Communication/Plan
-
IV Lasix 40 mg twice daily
IR diagnostic and therapeutic thoracentesis
Monitor renal function closely
Cards consult
Wean O2
Assessment / Plan
Assessment / Plan
#Acute hypoxemic respiratory failure
#Acute on Chronic HFrecEF
#Large left pleural effusion
-Suspect ischemic etiology of CHF associated with previous PCI, now improved with reperfusion
-History of HFrEF with LVEF 35% from ischemic disease; echo recently with LVEF 53%
-Home GDMT includes carvedilol, SGLT2i, aspirin, high intensity statin; PO torsemide for volume status
-Presented with hypoxemia necessitating 4 L O2; CXR showed pulmonary congestion and large left pleural effusion
-Suspect that this will be a transudative pleural effusion associated with recent heart failure
-Started on IV Lasix in place of torsemide, 40 mg twice daily, with improvement
-Continue home GDMT, continue IV Lasix 40 mg BID for now
-Appears euvolemic, monitor I's and O's + weights
-SpO2 goal >90%, wean appropriately
#CKD stage IV
-Degree of cardiorenal physiology; creatinine baseline has been near 4.0 during recent hospital stay
-Complicated by anemia of chronic kidney disease; no signs of BMD or acidemia chronically
-Was started on IV Lasix in place of home torsemide due to decompensated heart failure as above
-Monitor BMP and UOP very closely on diuretics, monitor for azotemic symptom
-Avoid nephrotoxins
-Neph appreciated
#IDDM 2 with hyperglycemia
-Recently with DKA/HHS, status post aggressive IV fluids and insulin protocol with transition back to SQ regimen
-Current regimen Lantus 15 units daily with NovoLog 6 units at lunch and dinner, NovoLog 8 units with breakfast
-Was briefly trialed on slightly higher doses of Lantus and aspart though became hypoglycemic
-Continue current insulin regimen, BG goal 140-180, avoid hypoglycemia
#Chronic hyponatremia
-Mild, clinically insignificant
-Stable with fluid restriction
-Trend BMP
#Primary hypertension
-Home regimen includes carvedilol twice daily, hydralazine BID, and isosorbide mononitrate
-Was started on Procardia while hospitalized here on 06/02
-Continue to monitor blood pressure and titrate as needed
#Hypothyroidism
-Home regimen includes levothyroxine
-Biochemically and clinically euthyroid
#CAD s/p PCI
#Dyslipidemia
-Home regimen includes beta-tiffany, high intensity statin, aspirin
-LDL goal <70 for secondary prevention
#Acute on chronic anemia of CKD
-Likely worsening anemia due to decreased EPO in the context of JAMAR
-S/p 1 unit PRBC here; no signs of bleeding
-Received erythropoietin stimulating agent with nephrology
-Continue to trend CBC and monitor for bleeding
Diet: Carbohydrate controlled, 2000-calorie
Thromboprophylaxis: SQ heparin
CODE STATUS: Full code
Disposition: Recently admitted to [facility] prior to readmission here, PT consulted, likely still AIR appropriate
Anticipated Discharge: > 48 hours
Subjective/Interval History
-
Date of Service: June 15, 2025
Objective Data
-
Labs:
Laboratory Results
06/15/25
05:19
WBC 3.7 L
Hgb 7.0 L
Hct 20.6 L*
Plt Count 181
Sodium 131 L
Potassium 4.8
Chloride 95 L
Carbon Dioxide 26
BUN 122 H*
Creatinine 4.4 H*
Glucose 95
Calcium 7.9 L
Vital Signs:
Vital Signs
Temp Pulse Resp BP Pulse Ox
97.6 F 57 16 174/74 96
06/15/25 07:54 06/15/25 07:54 06/15/25 07:54 06/15/25 07:54 06/15/25 07:54
I&O
06/14/25 06/15/25 06/16/25
06:59 06:59 06:59
Intake Total 480 / 480
Balance 480 / 480
[2025-06-15 11:41] LABS: Glucose - Point of Care 204 mg/dl (70-99)
--- NOTE | 2025-06-15 12:30 | W.CON.NEPH ---
Consultation
-
Date/Time Consultation Requested: 06/14/25 1341
Date/Time Consultation Performed: 06/15/25 1215
Requesting Provider: An Levine
Performing Provider: Marivel Boateng
Reason for Consultation: JAMAR with CKD
Medical History
-
Chief Complaint: Hypoxia
History of Present Illness:
60-year-old gentleman with diabetes mellitus type 2 controlled on insulin therapy, ischemic cardiomyopathy ejection fraction of 35% on chronic diuretic therapy, CKD 4 baseline creatinine about 3.5. CAD s/p PCI on Imdur, IDDM, essential HTN on
hydralazine, coreg and nifedipine, JESSENIA, HLD on statin, hypothyroidism on levothyroxine, medication non-compliance and recent admission 05/29-06/14/25 for HHS/DKA and HF exacerbation, JAMAR discharged to [facility] represents 06/14 evening with new oxygen
needs up to 4L. Pt was on RA and with resp symp prior d/c from . However at [place] he noted hypoxic and requiring O2. W/u in ER noted large left pleural effusion with CHF. Staff reports that he seem to have RENEE. started on IV diuretics with
improvement of wt. He denies any cp or sob. Denies any dysuria. His cr remains high at 4.4 and BUN increasing to 122 hence nephrology consulted. He persistently have anemic hb at 7 today.He notices mild diarrhea today. No abd pain, no n/v. NO fever
or cough or chills.
Past Medical History
CKD4, HFrEF with EF 35%, CAD s/p PCI, IDDM, essential HTN, JESSENIA, medication non-compliance and DKA admission
Past Medical History: CAD, CHF, HTN, Hypothyroidism, IDDM and Other (JESSENIA, CKD4)
Past Surgical History: None
Social History
Tobacco: Former Smoker
Alcohol: Occasional
Personal:
Living: With Family
Family History
Family History: Not Pertinent
Allergies / Home Medications
Allergy/AdvReac Type Severity Reaction Status Date / Time
No Known Allergies Allergy Verified 06/14/25 17:45
�Medication �Instructions �Recorded �Confirmed �Type
atorvastatin 40 mg tablet 40 mg PO HS High Cholesterol 02/05/22 06/14/25 History
levothyroxine 112 mcg tablet 112 mcg PO DAILY Thyroid 11/01/23 06/14/25 History
(Synthroid)
omega-3 fatty acids 1,000 mg PO DAILY Supplement 04/15/24 06/14/25 History
aspirin 81 mg tablet,delayed 81 mg PO DAILY Blood Clot 11/17/24 06/14/25 History
release Prevention/Tx
insulin glargine 100 unit/mL (3 15 unit (0.15 mL) SC DAILY 11/20/24 06/14/25 Rx
mL) subcutaneous pen Diabetes #0 mL
carvedilol 6.25 mg tablet 6.25 mg PO BID #30 tabs 06/12/25 06/14/25 Rx
hydralazine 50 mg tablet 50 mg PO DAILY 30 days #30 tabs 06/12/25 06/14/25 Rx
hydralazine 50 mg tablet 75 mg (1.5 x 50 mg) PO QPM #30 tabs 06/12/25 06/14/25 Rx
insulin aspart U-100 100 unit/mL 6 unit (0.06 mL) SC 06/12/25 06/14/25 Rx
(3 mL) subcutaneous pen DAILY@1130,1630 #15 mL
insulin aspart U-100 100 unit/mL 8 unit (0.08 mL) SC DAILY@0730 #15 06/12/25 06/14/25 Rx
(3 mL) subcutaneous pen mL
isosorbide mononitrate 30 mg 30 mg PO DAILY 30 days #30 tabs 06/12/25 06/14/25 Rx
tablet,extended release 24 hr
nifedipine 30 mg tablet,extended 30 mg PO DAILY #30 tabs 06/12/25 06/14/25 Rx
release
insulin aspart U-100 100 unit/mL 1 sliding scale dose SC AC Diabetes 06/15/25 06/14/25 History
(3 mL) subcutaneous pen
torsemide 20 mg tablet 20 mg PO DAILY Fluid 06/15/25 06/14/25 History
Retention/Swelling
Review of Systems
-
All other systems: Negative unless noted
Physical Exam
Vital Signs
Vital Signs
Temp Pulse Resp BP Pulse Ox
97.5 F 53 16 121/56 93
06/15/25 11:26 06/15/25 11:26 06/15/25 11:26 06/15/25 11:26 06/15/25 11:26
Lab Results
WBC 3.7 10^3/uL (4.8-10.8) L 06/15/25 05:19
RBC 2.21 10^6/uL (4.70-6.10) L 06/15/25 05:19
Hgb 7.0 g/dL (13.0-18.0) L 06/15/25 05:19
Hct 20.6 % (39.0-52.0) L* 06/15/25 05:19
Plt Count 181 10^3/uL (130-400) 06/15/25 05:19
Sodium 131 mmol/L (135-145) L 06/15/25 05:19
Potassium 4.8 mmol/L (3.5-5.1) 06/15/25 05:19
Chloride 95 mmol/L (98-107) L 06/15/25 05:19
Carbon Dioxide 26 mmol/L (22-30) 06/15/25 05:19
BUN 122 mg/dl (9-20) H* 06/15/25 05:19
Creatinine 4.4 mg/dL (0.7-1.3) H* 06/15/25 05:19
eGFR 14.65 06/15/25 05:19
Glucose 95 mg/dl (70-99) 06/15/25 05:19
Calcium 7.9 mg/dl (8.4-10.2) L 06/15/25 05:19
Nha-X-Micmgyurtdu Pept 76680 pg/ml 06/14/25 18:16
Albumin 3.9 g/dl (3.5-5.0) 06/14/25 18:16
Physical Exam
General: Awake, Alert, Oriented, AOx3 and No Distress
HEENT: EOMI, Anicteric and Facial Symmetry
Respiratory: Crackels, Normal Excursion and Nonlabored Respirations
Cardiac: S1/S2 and Regular Rate/Rhythm
Breast: Deferred by me
Abdomen: Soft, Nontender and Nondistended
Musculoskeletal: No Cyanosis and Edema (1+)
Skin: No Rash
Neuro: Nonfocal/Grossly Intact
Psych: Insight/judgement good and Appropriate
Data Reviewed
-
Labs: Labs Reviewed by me, Discussed with Nurse and Discussed with Patient
Assessment/Plan
-
Assessment
JAMAR
CKD 4
mild hyperkalemia
Acute on chr anemia
CAD s/p PCI
Diabetes mellitus type 2
Hypertension
large left pleural effusion
Acute on chronic Heart failure reduced ejection fraction 35%
FTT
Hyponatremia
Metabolic acidosis
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
Hypothyroidism
Plan
cr remans high at 4.4, azotemia worsening at 122
if he continues to have worsening renal function likely initiate HD in next 1-2days
monitor UOP, PVR low 23cc on 06/14
hyperkalemia improved
BP stable
monitor h/h low at 7, Last Procrit dose 06/09/2025
prn transfusion
for thoracentesis of left pleural effusion
hypervolemic hyponatremia-stable
renal diet and FR
d/w pt and nursing
[2025-06-15] MEDS: NOVOLOG FLEXPEN-LOW RESISTANCE 2 UNITS SC (12:31)
[2025-06-15] MEDS: NOVOLOG FLEXPEN 4 UNITS SC ×2 (12:31→16:57)
[2025-06-15 16:44] LABS: Glucose - Point of Care 125 mg/dl (70-99)
[2025-06-15] MEDS: APRESOLINE PO (16:56)
[2025-06-15 17:36] LABS: Body Fluid Second Tech EYM
[2025-06-15 21:58] LABS: Glucose - Point of Care 84 mg/dl (70-99)
[2025-06-15] MEDS: MELATONIN 5 MG PO (22:14)
[2025-06-15] MEDS: LIPITOR 40 MG PO (22:14)
[2025-06-16] VITALS (8 sets, daily range): BP systolic 45–156; BP diastolic 41–73; BMI 24.8
[2025-06-16 05:38] LABS: Hematocrit 21.2 % (39.0-52.0); Hemoglobin 7.1 g/dL (13.0-18.0); Mean Corp Hgb Conc. 33.5 g/dL (33.0-37.0); Mean Corpuscular Volume 97.2 fL (80.0-94.0); Nucleated Red Blood Cells % 0 % (-); Platelet Count 166 10^3/uL (130-400); Red Cell Dist. Width 16.2 % (11.5-14.5)
[2025-06-16] MEDS: SYNTHROID 112 MCG PO (05:59)
[2025-06-16 06:10] LABS: Calcium 7.9 mg/dl (8.4-10.2); Carbon Dioxide 25 mmol/L (22-30); Chloride 96 mmol/L (98-107); Estimated Creatinine Clearance 17 ml/min; Glucose 80 mg/dl (70-99); Magnesium 2.2 mg/dl (1.6-2.3); Potassium 4.7 mmol/L (3.5-5.1); Sodium 132 mmol/L (135-145); eGFR 14.65
[2025-06-16 06:25] LABS: Blood Urea Nitrogen 125 mg/dl (9-20)
[2025-06-16 07:44] LABS: Glucose - Point of Care 112 mg/dl (70-99)
[2025-06-16] MEDS: NOVOLOG FLEXPEN-LOW RESISTANCE SC ×2 (07:45→17:41)
[2025-06-16] MEDS: IMDUR (EXTENDED RELEASE) 30 MG PO (08:27)
[2025-06-16] MEDS: ASPIR LOW (ENTERIC COATED) 81 MG PO (08:27)
[2025-06-16] MEDS: PROCARDIA XL (EXTENDED RELEASE) 30 MG PO (08:28)
[2025-06-16] MEDS: COREG 6.25 MG PO ×2 (08:28→21:50)
[2025-06-16] MEDS: APRESOLINE 50 MG PO (08:28)
[2025-06-16] MEDS: HEPARIN 5000 UNITS SC ×2 (08:29→21:50)
[2025-06-16] MEDS: LANTUS 0.1 UNITS SC (08:29)
[2025-06-16] MEDS: LASIX 40 MG IV ×2 (08:29→17:32)
[2025-06-16] MEDS: NOVOLOG FLEXPEN 5 UNITS SC (08:30)
--- NOTE | 2025-06-16 09:10 | W.PN.HOSP.TC ---
Today's Communication/Plan
-
Continue IV diuresis
HD access today
Plan for HD tomorrow
Encourage out of bed as tolerated
Assessment / Plan
Assessment / Plan
#Acute hypoxemic respiratory failure
#Acute on Chronic HFrecEF
#Large transudative left pleural effusion
-History of HFrEF with LVEF 35% from ischemic disease; echo recently with LVEF 53%
-Home GDMT includes carvedilol, SGLT2i, aspirin, high intensity statin; PO torsemide for volume status
-Presented with hypoxemia necessitating 4 L O2; CXR showed pulmonary congestion and large left pleural effusion
-Started on IV Lasix in place of torsemide, 40 mg twice daily, without improvement in O2 or renal function
-Continue home GDMT, continue IV Lasix 40 mg BID for now and give additional 80 mg IV dose this morning
-Nephrology now planning to initiate dialysis on 06/17 with UF
-Appears euvolemic, monitor I's and O's + weights
-SpO2 goal >90%, wean appropriately
#CKD stage IV
-Degree of cardiorenal physiology; creatinine baseline has been near 4.0 during recent hospital stay
-Complicated by anemia of chronic kidney disease; no signs of BMD or acidemia chronically
-Was started on IV Lasix in place of home torsemide due to decompensated heart failure as above
-Monitor BMP and UOP very closely on diuretics, monitor for azotemic symptom
-Neph planning for HD access today and to begin HD tomorrow 06/17
-Avoid nephrotoxins
#IDDM 2 with hyperglycemia
-Recently with DKA/HHS, status post aggressive IV fluids and insulin protocol with transition back to SQ regimen
-Current regimen Lantus 15 units daily with NovoLog 6 units at lunch and dinner, NovoLog 8 units with breakfast
-Was briefly trialed on slightly higher doses of Lantus and aspart though became hypoglycemic
-Continue current insulin regimen, BG goal 140-180, avoid hypoglycemia
#Chronic hyponatremia
-Mild, clinically insignificant
-Stable with fluid restriction
-Trend BMP
#Primary hypertension
-Home regimen includes carvedilol twice daily, hydralazine BID, and isosorbide mononitrate
-Was started on Procardia while hospitalized here on 06/02
-Continue to monitor blood pressure and titrate as needed
#Hypothyroidism
-Home regimen includes levothyroxine
-Biochemically and clinically euthyroid
#CAD s/p PCI
#Dyslipidemia
-Home regimen includes beta-tiffany, high intensity statin, aspirin
-LDL goal <70 for secondary prevention
-No signs of ACS
#Acute on chronic anemia of CKD
-Likely worsening anemia due to decreased EPO in the context of JAMAR
-Received erythropoietin stimulating agent with nephrology
-Continue to trend CBC and monitor for bleeding
Diet: Carbohydrate controlled, 2000-calorie
Thromboprophylaxis: SQ heparin
CODE STATUS: Full code
Disposition: Recently admitted to [facility] prior to readmission here, PT consulted, likely still AIR appropriate
Anticipated Discharge: > 48 hours
Subjective/Interval History
-
Date of Service: June 16, 2025
Seen and examined at the bedside. No acute events reported overnight. AFVSS on 4 L O2
Renal function improving with diuresis, neither his O2 status.
Denies any new complaints this morning.
Objective Data
-
Labs:
Laboratory Results
06/16/25 06/16/25
05:18 05:19
WBC 5.9
Hgb 7.1 L
Hct 21.2 L
Plt Count 166
Sodium 132 L
Potassium 4.7
Chloride 96 L
Carbon Dioxide 25
BUN 125 H*
Creatinine 4.4 H*
Glucose 80
Calcium 7.9 L
Vital Signs:
Vital Signs
Temp Pulse Resp BP Pulse Ox
97.8 F 58 17 153/66 94
06/16/25 07:21 06/16/25 07:21 06/16/25 07:21 06/16/25 07:21 06/16/25 07:21
I&O
06/15/25 06/16/25 06/17/25
06:59 06:59 06:59
Intake Total 480 / 480 1500 / 1500
Balance 480 / 480 1500 / 1500
Review of Systems
-
History Source: Patient
All other systems: Reviewed and negative
Physical Exam
-
General: Well Developed, No Apparent Distress and Appears Chronically Ill
HEENT: Normocephalic, Atraumatic, Moist Mucous Membranes and Anicteric
Respiratory: Non Labored Respirations and Decreased Breath Sounds (Basis); Negative Wheezes, Rales, Rhonchi or Accessory Resp Muscle Use
Cardiac: Regular Rhythm, S1/S2 and JVD; Negative Murmur, Rub or Gallop
GI: Soft, Nontender, Nondistended and Normal Bowel Sounds
Musculoskeletal: No Clubbing, No Cyanosis and No Edema
Skin: Warm and Dry; Negative Rash
Neuro: AO x 3, Nonfocal/Grossly Intact and Central Nerve's Intact
Psych: Calm
Data Reviewed
-
Labs: Labs Reviewed by me, Discussed with Physician (Cardiology, nephrology) and Discussed with Patient
[2025-06-16] MEDS: LASIX 80 MG IV (10:28)
--- NOTE | 2025-06-16 11:32 | W.PN.NEPH.PH ---
Today's Communication / Plan
-
Initiate dialysis via PermCath
Assessment/Plan
-
Assessment
JAMAR
CKD 4
mild hyperkalemia
Acute on chr anemia
CAD s/p PCI
Diabetes mellitus type 2
Hypertension
large left pleural effusion
Acute on chronic Heart failure reduced ejection fraction 35%
FTT
Hyponatremia
Metabolic acidosis
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
Hypothyroidism
Plan
worsening azotemia
monitor UOP, PVR low 23cc on 06/14
hyperkalemia improved
BP stable
Last Procrit dose 06/09/2025
prn transfusion
for thoracentesis status post 1200 cc June 15
renal diet and FR
Discussed with the patient about initiation of dialysis as azotemia worsening with diuretic need.
Agrees to initiate hemodialysis via PermCath IR consult placed discussed with primary and cardiology
First treatment will be likely tomorrow if catheter put in later today
-
-
Date of Service: June 16, 2025
CC / HPI / ROS
-
Chief Complaint:
Shortness of breath
History of Present Illness:
Progressive CKD
Review of Systems:
4 L oxygen
No chest pain
Labs
-
Labs:
WBC 5.9 10^3/uL (4.8-10.8) 06/16/25 05:19
RBC 2.18 10^6/uL (4.70-6.10) L 06/16/25 05:19
Hgb 7.1 g/dL (13.0-18.0) L 06/16/25 05:19
Hct 21.2 % (39.0-52.0) L 06/16/25 05:19
Plt Count 166 10^3/uL (130-400) 06/16/25 05:19
Sodium 132 mmol/L (135-145) L 06/16/25 05:18
Potassium 4.7 mmol/L (3.5-5.1) 06/16/25 05:18
Chloride 96 mmol/L (98-107) L 06/16/25 05:18
Carbon Dioxide 25 mmol/L (22-30) 06/16/25 05:18
BUN 125 mg/dl (9-20) H* 06/16/25 05:18
Creatinine 4.4 mg/dL (0.7-1.3) H* 06/16/25 05:18
eGFR 14.65 06/16/25 05:18
Glucose 80 mg/dl (70-99) 06/16/25 05:18
Calcium 7.9 mg/dl (8.4-10.2) L 06/16/25 05:18
Xil-C-Qexqnrfhlcp Pept 87200 pg/ml 06/14/25 18:16
Albumin 3.9 g/dl (3.5-5.0) 06/14/25 18:16
Physical Exam
-
Vital Signs:
Vital Signs
Temp Pulse Resp BP Pulse Ox
98.4 F 55 17 142/67 97
06/16/25 11:12 06/16/25 11:12 06/16/25 11:12 06/16/25 11:12 06/16/25 11:12
Cardiovascular:: Regular rate and rhythm
Respiratory:: Bilateral: Coarse
Lung Excursion:: Normal
Abdomen:: Nontender and Soft
Bowel Sounds:: Normal
Extremity Edema:: +1: Bilateral: (trace)
Ratliff Catheter: No
[2025-06-16 11:41] LABS: Glucose - Point of Care 205 mg/dl (70-99)
[2025-06-16] MEDS: NOVOLOG FLEXPEN 4 UNITS SC (13:16)
[2025-06-16] MEDS: NOVOLOG FLEXPEN-LOW RESISTANCE 2 UNITS SC (13:17)
--- NOTE | 2025-06-16 15:07 | CM ---
Pt to start dialysis tomorrow once PermaCath is placed.
[2025-06-16] MEDS: ANCEF 10 IV (16:44)
[2025-06-16] MEDS: APRESOLINE PO (17:31)
[2025-06-16 17:43] LABS: Glucose - Point of Care 42 mg/dl (70-99)
[2025-06-16] MEDS: NOVOLOG FLEXPEN SC (17:48)
[2025-06-16 17:59] LABS: Glucose - Point of Care 65 mg/dl (70-99)
[2025-06-16 18:10] LABS: Glucose - Point of Care 76 mg/dl (70-99)
[2025-06-16 18:25] LABS: Hepatitis B Surface Antigen Negative (Negative)
[2025-06-16 18:43] LABS: Hepatitis C Antibody Negative (Negative)
[2025-06-16 20:34] LABS: Glucose - Point of Care 165 mg/dl (70-99)
[2025-06-16] MEDS: LIPITOR 40 MG PO (21:51)
[2025-06-16 22:13] LABS: Glucose - Point of Care 154 mg/dl (70-99)
[2025-06-17] VITALS (9 sets, daily range): BP systolic 132–187; BP diastolic 55–80; BMI 24.7
[2025-06-17 03:32] LABS: Glucose - Point of Care 132 mg/dl (70-99)
[2025-06-17] MEDS: SYNTHROID 112 MCG PO (06:11)
[2025-06-17] MEDS: NOVOLOG FLEXPEN SC ×2 (08:00→13:21)
[2025-06-17] MEDS: NOVOLOG FLEXPEN-LOW RESISTANCE SC ×2 (08:00→13:21)
[2025-06-17] MEDS: MANNITOL 25% 12.5 GRAMS IV ×2 (08:13→09:28)
[2025-06-17] MEDS: RETACRIT 10000 UNITS IV (08:13)
[2025-06-17 08:16] LABS: Glucose - Point of Care 121 mg/dl (70-99)
[2025-06-17 08:24] LABS: Hematocrit 20.7 % (39.0-52.0); Hemoglobin 6.8 g/dL (13.0-18.0); Mean Corp Hgb Conc. 32.9 g/dL (33.0-37.0); Mean Corpuscular Volume 94.1 fL (80.0-94.0); Nucleated Red Blood Cells % 0 % (-); Platelet Count 153 10^3/uL (130-400); Red Cell Dist. Width 16.2 % (11.5-14.5)
[2025-06-17 08:34] LABS: Calcium 7.9 mg/dl (8.4-10.2); Carbon Dioxide 24 mmol/L (22-30); Chloride 97 mmol/L (98-107); Estimated Creatinine Clearance 18 ml/min; Glucose 104 mg/dl (70-99); Potassium 4.6 mmol/L (3.5-5.1); Sodium 131 mmol/L (135-145); eGFR 15.95
[2025-06-17 08:46] LABS: Blood Urea Nitrogen 127 mg/dl (9-20)
--- NOTE | 2025-06-17 09:06 | W.PN.HOSP.TC ---
Today's Communication/Plan
-
Start HD
BUD per nephrology
Repeat CBC after HD and transfuse if Hgb <7
Wean oxygen as tolerated
Encourage OOB activity
Assessment / Plan
Assessment / Plan
#Acute hypoxemic respiratory failure
#Acute on Chronic HFrecEF
#Large transudative left pleural effusion
-History of HFrEF with LVEF 35% from ischemic disease; echo recently with LVEF 53%
-Home GDMT includes carvedilol, SGLT2i, aspirin, high intensity statin; PO torsemide for volume status
-Presented with hypoxemia necessitating 4 L O2; CXR showed pulmonary congestion and large left pleural effusion
-Started on IV Lasix in place of torsemide, 40 mg twice daily, without improvement in O2 or renal function
-Continue home GDMT, continue IV Lasix 40 mg BID for now and give additional 80 mg IV dose this morning
-Nephrology started dialysis today for ultrafiltration, continue at nephrology's discretion
-Appears euvolemic, monitor I's and O's + weights
-SpO2 goal >90%, wean appropriately
#JAMAR on CKD stage V
-Degree of cardiorenal physiology; creatinine baseline has been near 4.0 during recent hospital stay
-Complicated by anemia of chronic kidney disease; no signs of BMD or acidemia chronically
-Was started on IV Lasix in place of home torsemide due to decompensated heart failure as above
-Monitor BMP and UOP very closely on diuretics, monitor for azotemic symptom
-Started on hemodialysis today, continue at nephrology's discretion
-Avoid nephrotoxins
#Acute on chronic anemia of CKD
-Likely worsening anemia due to decreased EPO in the context of JAMAR
-Received erythropoietin stimulating agent with nephrology
-Continue to trend CBC and monitor for bleeding
-Hemoglobin this morning 6.8, receiving first HD session
-Nephrology to give BUD today
-Repeat CBC after HD, transfuse if Hb <7
#IDDM 2 with hyperglycemia
-Recently with DKA/HHS, status post aggressive IV fluids and insulin protocol with transition back to SQ regimen
-Current regimen Lantus 15 units daily with NovoLog 6 units at lunch and dinner, NovoLog 8 units with breakfast
-Was briefly trialed on slightly higher doses of Lantus and aspart though became hypoglycemic
-Continue current insulin regimen, BG goal 140-180, avoid hypoglycemia
#Chronic hyponatremia
-Mild, clinically insignificant
-Stable with fluid restriction
-Trend BMP
#Primary hypertension
-Home regimen includes carvedilol twice daily, hydralazine BID, and isosorbide mononitrate
-Was started on Procardia while hospitalized here on 06/02
-Continue to monitor blood pressure and titrate as needed
#Hypothyroidism
-Home regimen includes levothyroxine
-Biochemically and clinically euthyroid
#CAD s/p PCI
#Dyslipidemia
-Home regimen includes beta-tiffany, high intensity statin, aspirin
-LDL goal <70 for secondary prevention
-No signs of ACS
Diet: Carbohydrate controlled, 2000-calorie
Thromboprophylaxis: SQ heparin
CODE STATUS: Full code
Disposition: SNF versus home therapy
Anticipated Discharge: > 48 hours
Subjective/Interval History
-
Date of Service: June 17, 2025
Seen and examined at the bedside. No acute events reported overnight. AFVSS this morning on 4 L O2
Being started on dialysis today. Morning hemoglobin 6.8. No bleeding reported
Patient denies any complaints, feels tired during his first dialysis.
Objective Data
-
Labs:
Laboratory Results
06/17/25
08:10
WBC 3.1 L
Hgb 6.8 L*
Hct 20.7 L*
Plt Count 153
Sodium 131 L
Potassium 4.6
Chloride 97 L
Carbon Dioxide 24
BUN 127 H*
Creatinine 4.1 H*
Glucose 104 H
Calcium 7.9 L
Vital Signs:
Vital Signs
Temp Pulse Resp BP Pulse Ox
97.3 F 55 15 170/79 94
06/17/25 08:02 06/17/25 08:02 06/17/25 08:02 06/17/25 08:02 06/17/25 08:02
I&O
06/16/25 06/17/25 06/18/25
06:59 06:59 06:59
Intake Total 1500 / 1500 420 / 420
Output Total 1450 / 1450
Balance 1500 / 1500 -1030 / -1030
Review of Systems
-
History Source: Patient
All other systems: Reviewed and negative
Physical Exam
-
General: Well Developed, No Apparent Distress and Appears Chronically Ill
HEENT: Normocephalic, Atraumatic, Moist Mucous Membranes and Anicteric
Respiratory: Non Labored Respirations and Decreased Breath Sounds; Negative Wheezes, Rales, Rhonchi or Accessory Resp Muscle Use
Cardiac: Regular Rhythm and S1/S2; Negative Murmur, Rub, JVD or Gallop
GI: Soft, Nontender, Nondistended and Normal Bowel Sounds
Musculoskeletal: No Clubbing, No Cyanosis and Other (Trace bilateral edema)
Skin: Warm and Dry; Negative Rash
Neuro: AO x 3, Nonfocal/Grossly Intact and Central Nerve's Intact
Psych: Calm
Data Reviewed
-
Labs: Labs Reviewed by me, Discussed with Physician (Dispensary Technician) and Discussed with Patient
--- NOTE | 2025-06-17 10:36 | W.PN.NEPH.HD ---
Assessment
-
Seen on dialysis first treatment tolerating 2 hours and 15 minutes was ultrafiltration of 2 L
Next dialysis will be Thursday second treatment
Progress Note - Hemodialysis
-
Date of Service: June 17, 2025
Duration: 15 minutes and 2 hours
Potassium Bath: 2
Calcium Bath: 2.5
Opti-Dialyzer: 160
Ultrafiltration: Other
Blood Flow: 300
Dialysate Flow: 600
EPO: Yes
--- NOTE | 2025-06-17 10:37 | W.PN.NEPH.PH ---
Today's Communication / Plan
-
Dialysis
Assessment/Plan
-
Assessment
JAMAR
CKD 4
mild hyperkalemia
Acute on chr anemia
CAD s/p PCI
Diabetes mellitus type 2
Hypertension
large left pleural effusion
Acute on chronic Heart failure reduced ejection fraction 35%
FTT
Hyponatremia
Metabolic acidosis
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
Hypothyroidism
Plan
worsening azotemia
BP stable
for thoracentesis status post 1200 cc June 15
renal diet and FR
Patient agreed to dialysis first treatment today 06/17 via permacath
Next treatment will be Thursday second treatment
Will need dialysis placement outpatient
-
-
Date of Service: June 17, 2025
CC / HPI / ROS
-
Chief Complaint:
Shortness of breath
History of Present Illness:
Progressive CKD requiring implementation of dialysis
Review of Systems:
4 L oxygen
No chest pain
Labs
-
Labs:
WBC 3.1 10^3/uL (4.8-10.8) L 06/17/25 08:10
RBC 2.20 10^6/uL (4.70-6.10) L 06/17/25 08:10
Plt Count 153 10^3/uL (130-400) 06/17/25 08:10
Sodium 131 mmol/L (135-145) L 06/17/25 08:10
Potassium 4.6 mmol/L (3.5-5.1) 06/17/25 08:10
Chloride 97 mmol/L (98-107) L 06/17/25 08:10
Carbon Dioxide 24 mmol/L (22-30) 06/17/25 08:10
BUN 127 mg/dl (9-20) H* 06/17/25 08:10
Creatinine 4.1 mg/dL (0.7-1.3) H* 06/17/25 08:10
eGFR 15.95 06/17/25 08:10
Glucose 104 mg/dl (70-99) H 06/17/25 08:10
Calcium 7.9 mg/dl (8.4-10.2) L 06/17/25 08:10
Cvo-F-Azqfrhiakuc Pept 72310 pg/ml 06/14/25 18:16
Albumin 3.9 g/dl (3.5-5.0) 06/14/25 18:16
Physical Exam
-
Vital Signs:
Vital Signs
Temp Pulse Resp BP Pulse Ox
97.3 F 55 15 170/79 94
06/17/25 08:02 06/17/25 08:02 06/17/25 08:02 06/17/25 08:02 06/17/25 08:02
Cardiovascular:: Regular rate and rhythm
Respiratory:: Bilateral: Coarse
Lung Excursion:: Normal
Abdomen:: Nontender and Soft
Bowel Sounds:: Normal
Extremity Edema:: +1: Bilateral: (trace)
Ratliff Catheter: No
[2025-06-17] MEDS: HEPARIN 5000 UNITS SC ×2 (11:01→21:00)
[2025-06-17] MEDS: COREG 6.25 MG PO ×2 (11:01→20:59)
[2025-06-17] MEDS: APRESOLINE 50 MG PO (11:01)
[2025-06-17] MEDS: ASPIR LOW (ENTERIC COATED) 81 MG PO (11:01)
[2025-06-17] MEDS: PROCARDIA XL (EXTENDED RELEASE) 30 MG PO (11:01)
[2025-06-17] MEDS: LASIX 40 MG IV ×2 (11:02→17:24)
[2025-06-17] MEDS: IMDUR (EXTENDED RELEASE) 30 MG PO (11:06)
[2025-06-17] MEDS: LANTUS 0.1 UNITS SC (11:09)
[2025-06-17 11:38] LABS: Glucose - Point of Care 95 mg/dl (70-99)
[2025-06-17 13:13] LABS: Hematocrit 20.3 % (39.0-52.0); Hemoglobin 6.5 g/dL (13.0-18.0)
[2025-06-17] MEDS: APRESOLINE 75 MG PO (17:25)
[2025-06-17] MEDS: NOVOLOG FLEXPEN-LOW RESISTANCE 1 UNITS SC (17:27)
[2025-06-17] MEDS: NOVOLOG FLEXPEN 3 UNITS SC (17:27)
[2025-06-17 17:28] LABS: Glucose - Point of Care 191 mg/dl (70-99)
[2025-06-17 21:39] LABS: Glucose - Point of Care 148 mg/dl (70-99)
[2025-06-17] MEDS: LIPITOR 40 MG PO (22:27)
[2025-06-18] VITALS (7 sets, daily range): BP systolic 111–146; BP diastolic 51–65; O2SAT 91
[2025-06-18] MEDS: MELATONIN 5 MG PO (02:00)
[2025-06-18] MEDS: SYNTHROID 112 MCG PO (06:25)
[2025-06-18 07:48] LABS: Blood Urea Nitrogen 85 mg/dl (9-20); Calcium 7.8 mg/dl (8.4-10.2); Carbon Dioxide 27 mmol/L (22-30); Chloride 97 mmol/L (98-107); Estimated Creatinine Clearance 25 ml/min; Glucose 82 mg/dl (70-99); Magnesium 2.1 mg/dl (1.6-2.3); Potassium 4.4 mmol/L (3.5-5.1); Sodium 132 mmol/L (135-145); eGFR 23.20
[2025-06-18 08:12] LABS: Glucose - Point of Care 112 mg/dl (70-99)
[2025-06-18] MEDS: NOVOLOG FLEXPEN-LOW RESISTANCE SC (08:22)
[2025-06-18] MEDS: IMDUR (EXTENDED RELEASE) 30 MG PO (08:32)
[2025-06-18] MEDS: COREG 6.25 MG PO ×2 (08:32→20:26)
[2025-06-18] MEDS: ASPIR LOW (ENTERIC COATED) 81 MG PO (08:33)
[2025-06-18] MEDS: PROCARDIA XL (EXTENDED RELEASE) 30 MG PO (08:33)
[2025-06-18] MEDS: APRESOLINE 50 MG PO (08:33)
[2025-06-18] MEDS: LASIX 40 MG IV ×2 (08:33→16:28)
[2025-06-18] MEDS: NOVOLOG FLEXPEN 3 UNITS SC ×3 (08:34→17:36)
[2025-06-18] MEDS: HEPARIN 5000 UNITS SC ×2 (08:34→20:27)
[2025-06-18] MEDS: LANTUS 0.1 UNITS SC (08:35)
--- NOTE | 2025-06-18 08:53 | W.PN.HOSP.TC ---
Today's Communication/Plan
-
Continue with HD per nephrology
Trend CBC and BMP
PT and OOB as able
wean oxygen
Assessment / Plan
Assessment / Plan
#Acute hypoxemic respiratory failure
#Acute on Chronic HFrecEF
#Large transudative left pleural effusion
-History of HFrEF with LVEF 35% from ischemic disease; echo recently with LVEF 53%
-Home GDMT includes carvedilol, SGLT2i, aspirin, high intensity statin; PO torsemide for volume status
-Presented with hypoxemia necessitating 4 L O2; CXR showed pulmonary congestion and large left pleural effusion
-Started on IV Lasix in place of torsemide, 40 mg twice daily, without improvement in O2 or renal function
-Nephrology started dialysis today for ultrafiltration, continue at nephrology's discretion
-Appears euvolemic, monitor I's and O's + weights
-SpO2 goal >90%, wean appropriately
#JAMAR on CKD stage V
-Degree of cardiorenal physiology; creatinine baseline has been near 4.0 during recent hospital stay
-Complicated by anemia of chronic kidney disease; no signs of BMD or acidemia chronically
-Was started on IV Lasix in place of home torsemide due to decompensated heart failure as above
-Monitor BMP and UOP very closely on diuretics, monitor for azotemic symptom
-Started on hemodialysis today, continue at nephrology's discretion
-Avoid nephrotoxins
#Acute on chronic anemia of CKD
-Likely worsening anemia due to decreased EPO in the context of JAMAR
-Received erythropoietin stimulating agent with nephrology
-Continue to trend CBC and monitor for bleeding
-Hemoglobin this morning 6.8, receiving first HD session
-Nephrology to give BUD today
-Repeat CBC after HD, transfuse if Hb <7
#IDDM 2 with hyperglycemia
-Recently with DKA/HHS, status post aggressive IV fluids and insulin protocol with transition back to SQ regimen
-Current regimen Lantus 15 units daily with NovoLog 6 units at lunch and dinner, NovoLog 8 units with breakfast
-Was briefly trialed on slightly higher doses of Lantus and aspart though became hypoglycemic
-Continue current insulin regimen, BG goal 140-180, avoid hypoglycemia
#Chronic hyponatremia
-Mild, clinically insignificant
-Stable with fluid restriction
-Trend BMP
#Primary hypertension
-Home regimen includes carvedilol twice daily, hydralazine BID, and isosorbide mononitrate
-Was started on Procardia while hospitalized here on 06/02
-Continue to monitor blood pressure and titrate as needed
#Hypothyroidism
-Home regimen includes levothyroxine
-Biochemically and clinically euthyroid
#CAD s/p PCI
#Dyslipidemia
-Home regimen includes beta-tiffany, high intensity statin, aspirin
-LDL goal <70 for secondary prevention
-No signs of ACS
Diet: Carbohydrate controlled, 2000-calorie
Thromboprophylaxis: SQ heparin
CODE STATUS: Full code
Disposition: SNF versus home therapy
Anticipated Discharge: 24 - 48 hours
Subjective/Interval History
-
Date of Service: June 18, 2025
Seen and examined at the bedside. No acute events reported overnight. AFVSS on 2 L O2 this morning
Renal function and electrolytes improved following first HD session. Hemoglobin up to 7.8 following 1 unit PRBC yesterday
Patient denies any complaints including dyspnea or chest pain. Working with physical therapy at the bedside
Objective Data
-
Labs:
Laboratory Results
06/18/25
06:28
WBC Pending
Hgb Pending
Hct Pending
Plt Count Pending
Sodium 132 L
Potassium 4.4
Chloride 97 L
Carbon Dioxide 27
BUN 85 H
Creatinine 3.0 H
Glucose 82
Calcium 7.8 L
Vital Signs:
Vital Signs
Temp Pulse Resp BP Pulse Ox
97.6 F 55 18 127/51 90
06/18/25 07:00 06/18/25 08:33 06/18/25 07:00 06/18/25 08:33 06/18/25 07:00
I&O
06/17/25 06/18/25 06/19/25
06:59 06:59 06:59
Intake Total 420 / 420 1520 / 1520
Output Total 1450 / 1450 1250 / 1250
Balance -1030 / -1030 270 / 270
Review of Systems
-
History Source: Patient
All other systems: Reviewed and negative
Physical Exam
-
General: Well Developed, No Apparent Distress and Appears Chronically Ill
HEENT: Normocephalic, Atraumatic, Moist Mucous Membranes and Anicteric
Respiratory: Non Labored Respirations and Decreased Breath Sounds (Bilateral bases); Negative Accessory Resp Muscle Use
Cardiac: Regular Rhythm and S1/S2; Negative Murmur, Rub, JVD or Gallop
GI: Soft, Nontender, Nondistended and Normal Bowel Sounds
Musculoskeletal: No Clubbing, No Cyanosis and Other (1+ edema)
Skin: Warm and Dry; Negative Rash
Neuro: AO x 3, Nonfocal/Grossly Intact and Central Nerve's Intact
Psych: Calm
Data Reviewed
-
Labs: Labs Reviewed by me, Discussed with Physician (Neph), Discussed with Nurse and Discussed with Patient
[2025-06-18 09:27] LABS: Hematocrit 25.0 % (39.0-52.0); Hemoglobin 7.9 g/dL (13.0-18.0); Mean Corp Hgb Conc. 31.6 g/dL (33.0-37.0); Mean Corpuscular Volume 94.7 fL (80.0-94.0); Nucleated Red Blood Cells % 0 % (-); Platelet Count 145 10^3/uL (130-400); Red Cell Dist. Width 16.7 % (11.5-14.5)
[2025-06-18 12:06] LABS: Glucose - Point of Care 272 mg/dl (70-99)
[2025-06-18] MEDS: NOVOLOG FLEXPEN-LOW RESISTANCE 3 UNITS SC (12:10)
--- NOTE | 2025-06-18 15:20 | W.PN.NEPH.PH ---
Today's Communication / Plan
-
Dialysis Thursday
Assessment/Plan
-
Assessment
JAMAR
CKD 4
mild hyperkalemia
Acute on chr anemia
CAD s/p PCI
Diabetes mellitus type 2
Hypertension
large left pleural effusion
Acute on chronic Heart failure reduced ejection fraction 35%
FTT
Hyponatremia
Metabolic acidosis
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
Hypothyroidism
Plan
worsening azotemia
BP stable
Thoracentesis status post 1200 cc June 15
renal diet and FR
Patient agreed to dialysis first treatment 06/17 via permacath
Next treatment will be Thursday second treatment
Will need dialysis placement outpatient
Ultrafiltration about 2 L first treatment with some improvement oxygen down to 3 L.
Dialysis ee orders
-
-
Date of Service: June 18, 2025
CC / HPI / ROS
-
Chief Complaint:
Shortness of breath
History of Present Illness:
Progressive CKD requiring implementation of dialysis
Review of Systems:
4 L oxygen down to 3 L
No chest pain
Labs
-
Labs:
WBC 3.0 10^3/uL (4.8-10.8) L 06/18/25 06:28
RBC 2.64 10^6/uL (4.70-6.10) L 06/18/25 06:28
Hgb 7.9 g/dL (13.0-18.0) L D 06/18/25 06:28
Hct 25.0 % (39.0-52.0) L 06/18/25 06:28
Plt Count 145 10^3/uL (130-400) 06/18/25 06:28
Sodium 132 mmol/L (135-145) L 06/18/25 06:28
Potassium 4.4 mmol/L (3.5-5.1) 06/18/25 06:28
Chloride 97 mmol/L (98-107) L 06/18/25 06:28
Carbon Dioxide 27 mmol/L (22-30) 06/18/25 06:28
BUN 85 mg/dl (9-20) H 06/18/25 06:28
Creatinine 3.0 mg/dL (0.7-1.3) H 06/18/25 06:28
eGFR 23.20 06/18/25 06:28
Glucose 82 mg/dl (70-99) 06/18/25 06:28
Calcium 7.8 mg/dl (8.4-10.2) L 06/18/25 06:28
Fnu-F-Qcxxelsnpcc Pept 50878 pg/ml 06/14/25 18:16
Albumin 3.9 g/dl (3.5-5.0) 06/14/25 18:16
Physical Exam
-
Vital Signs:
Vital Signs
Temp Pulse Resp BP Pulse Ox
97.7 F 49 18 112/55 92
06/18/25 11:00 06/18/25 11:00 06/18/25 11:00 06/18/25 11:00 06/18/25 11:00
Respiratory:: Bilateral: Coarse
Abdomen:: Soft
Bowel Sounds:: Normal
Extremity Edema:: None: Bilateral:
[2025-06-18 16:40] LABS: Glucose - Point of Care 334 mg/dl (70-99)
[2025-06-18 17:33] LABS: Glucose - Point of Care 349 mg/dl (70-99)
[2025-06-18] MEDS: NOVOLOG FLEXPEN-LOW RESISTANCE 4 UNITS SC (17:36)
[2025-06-18] MEDS: APRESOLINE 75 MG PO (17:38)
[2025-06-18] MEDS: LIPITOR 40 MG PO (20:29)
[2025-06-18 21:47] LABS: Glucose - Point of Care 344 mg/dl (70-99)
[2025-06-18] MEDS: NOVOLOG FLEXPEN 4 UNITS SC (22:22)
[2025-06-19 03:35] VITALS: BP 148/64
[2025-06-19] MEDS: SYNTHROID 112 MCG PO (06:25)
[2025-06-19 06:59] VITALS: BMI 24.0
[2025-06-19 07:00] VITALS: BP 167/73
[2025-06-19 07:37] LABS: Glucose - Point of Care 175 mg/dl (70-99)
[2025-06-19] MEDS: HEPARIN 5000 UNITS SC ×2 (08:42→20:42)
[2025-06-19] MEDS: LANTUS 0.1 UNITS SC (08:42)
[2025-06-19] MEDS: LASIX 40 MG IV ×2 (08:42→17:24)
[2025-06-19] MEDS: ASPIR LOW (ENTERIC COATED) 81 MG PO (08:43)
[2025-06-19] MEDS: NOVOLOG FLEXPEN-LOW RESISTANCE 1 UNITS SC ×2 (08:43→12:34)
[2025-06-19] MEDS: IMDUR (EXTENDED RELEASE) 30 MG PO (08:43)
[2025-06-19] MEDS: APRESOLINE 50 MG PO (08:43)
[2025-06-19] MEDS: PROCARDIA XL (EXTENDED RELEASE) 30 MG PO (08:43)
[2025-06-19] MEDS: COREG 6.25 MG PO ×2 (08:43→20:42)
[2025-06-19] MEDS: NOVOLOG FLEXPEN 3 UNITS SC ×3 (08:44→17:29)
[2025-06-19 09:16] LABS: Hematocrit 26.5 % (39.0-52.0); Hemoglobin 8.5 g/dL (13.0-18.0); Mean Corp Hgb Conc. 32.1 g/dL (33.0-37.0); Mean Corpuscular Volume 95.3 fL (80.0-94.0); Platelet Count 138 10^3/uL (130-400); Red Cell Dist. Width 15.9 % (11.5-14.5)
[2025-06-19 09:37] LABS: Blood Urea Nitrogen 95 mg/dl (9-20); Calcium 8.2 mg/dl (8.4-10.2); Carbon Dioxide 26 mmol/L (22-30); Chloride 97 mmol/L (98-107); Estimated Creatinine Clearance 21 ml/min; Glucose 160 mg/dl (70-99); Potassium 4.6 mmol/L (3.5-5.1); Sodium 132 mmol/L (135-145); eGFR 19.28
[2025-06-19 11:00] VITALS: BP 161/73
[2025-06-19 11:48] LABS: Glucose - Point of Care 177 mg/dl (70-99)
[2025-06-19] MEDS: RETACRIT 10000 UNITS IV (12:50)
[2025-06-19] MEDS: MANNITOL 25% 12.5 GRAMS IV ×2 (12:51→14:00)
--- NOTE | 2025-06-19 13:06 | W.PN.HOSP.TC ---
Today's Communication/Plan
-
HD
Assessment / Plan
Assessment / Plan
#Acute hypoxemic respiratory failure
#Acute on Chronic HFrecEF
#Large transudative left pleural effusion
-History of HFrEF with LVEF 35% from ischemic disease; echo recently with LVEF 53%
-Home GDMT includes carvedilol, SGLT2i, aspirin, high intensity statin; PO torsemide for volume status
-Presented with hypoxemia necessitating 4 L O2; CXR showed pulmonary congestion and large left pleural effusion
-Started on IV Lasix in place of torsemide, 40 mg twice daily, without improvement in O2 or renal function
-Nephrology started dialysis today for ultrafiltration, continue at nephrology's discretion
-Appears euvolemic, monitor I's and O's + weights
-SpO2 goal >90%, wean appropriately
#JAMAR on CKD stage V
-Degree of cardiorenal physiology; creatinine baseline has been near 4.0 during recent hospital stay
-Complicated by anemia of chronic kidney disease; no signs of BMD or acidemia chronically
-Was started on IV Lasix in place of home torsemide due to decompensated heart failure as above
-Monitor BMP and UOP very closely on diuretics, monitor for azotemic symptom
-Started on hemodialysis;, continue at nephrology's discretion
-Avoid nephrotoxins
#Acute on chronic anemia of CKD
-Likely worsening anemia due to decreased EPO in the context of JAMAR
-Received erythropoietin stimulating agent with nephrology
-Continue to trend CBC and monitor for bleeding
-Hemoglobin this morning 6.8, receiving first HD session
-Nephrology to give BUD today
-Repeat CBC after HD, transfuse if Hb <7
#IDDM 2 with hyperglycemia
-Recently with DKA/HHS, status post aggressive IV fluids and insulin protocol with transition back to SQ regimen
-Current regimen Lantus 15 units daily with NovoLog 6 units at lunch and dinner, NovoLog 8 units with breakfast
-Was briefly trialed on slightly higher doses of Lantus and aspart though became hypoglycemic
-Continue current insulin regimen, BG goal 140-180, avoid hypoglycemia
#Chronic hyponatremia
-Mild, clinically insignificant
-Stable with fluid restriction
-Trend BMP
#Primary hypertension
-Home regimen includes carvedilol twice daily, hydralazine BID, and isosorbide mononitrate
-Was started on Procardia while hospitalized here on 06/02
-Continue to monitor blood pressure and titrate as needed
#Hypothyroidism
-Home regimen includes levothyroxine
-Biochemically and clinically euthyroid
#CAD s/p PCI
#Dyslipidemia
-Home regimen includes beta-tiffany, high intensity statin, aspirin
-LDL goal <70 for secondary prevention
-No signs of ACS
Diet: Carbohydrate controlled, 2000-calorie
Thromboprophylaxis: SQ heparin
CODE STATUS: Full code
Disposition: SNF versus home therapy
Anticipated Discharge: 24 - 48 hours
Subjective/Interval History
-
Date of Service: June 19, 2025
No acute events overnight
Objective Data
-
Labs:
Laboratory Results
06/19/25
08:59
WBC 3.6 L
Hgb 8.5 L
Hct 26.5 L
Plt Count 138
Sodium 132 L
Potassium 4.6
Chloride 97 L
Carbon Dioxide 26
BUN 95 H
Creatinine 3.5 H
Glucose 160 H
Calcium 8.2 L
Vital Signs:
Vital Signs
Temp Pulse Resp BP Pulse Ox
97.6 F 60 16 161/73 91
06/19/25 11:00 06/19/25 11:00 06/19/25 11:00 06/19/25 11:00 06/19/25 11:00
I&O
06/18/25 06/19/25 06/20/25
06:59 06:59 06:59
Intake Total 1520 / 1520 960 / 960
Output Total 1250 / 1250 100 / 100
Balance 270 / 270 860 / 860
Review of Systems
-
History Source: Patient
All other systems: Reviewed and negative
Data Reviewed
-
Diagnostic Radiology: Report Reviewed by me
Ultrasound: Report Reviewed by me
Labs: Labs Reviewed by me
--- NOTE | 2025-06-19 13:06 | CM ---
Initial assessment completed with patient who lives alone in a basement apartment with 7 steps down to enter. [employer] patient was independent in ADL's and ambulation, drives. Has a continuous glucose monitor. No other DME or in-home services.
Pt started dialysis 06/17/2025; second dialysis treatment scheduled for today.
Plan: CM will follow to coordinate outpatient dialysis services to start when medically cleared.
PCP: Galen Arteaga
Pharmacy: [facility] on [facility].
--- NOTE | 2025-06-19 13:21 | W.PN.NEPH.HD ---
Assessment
-
Patient seen on dialysis
Systolic blood pressure dropped to 98 with heart rate of 50
Third dialysis treatment will be performed tomorrow
Progress Note - Hemodialysis
-
Date of Service: June 19, 2025
Duration: 45 minutes and 2 hours
Potassium Bath: 2
Calcium Bath: 2.5
Opti-Dialyzer: 160
Ultrafiltration: Other (Reduced as patient blood pressure dropped significantly after a.m. blood pressures were given)
Blood Flow: 350
Dialysate Flow: 600
Heparin: None
EPO: 10,000
[2025-06-19 15:00] VITALS: BP 119/58
--- NOTE | 2025-06-19 15:21 | PN.CDI ---
CDI
- -
CDI:
Physician Documentation Request
Admit Date: 06/14/25 21:50
Dear Doctor Lubna,
Patient presented to ED for low oxygen levels. Found to have heart failure exacerbation. Patient has a history of CKD.
Hospitalist notes refer to the CKD as stage V
Nephrology as CKD 4.
Please clarify which of the following accurately represents the patient's renal status:
____ - CKD IV
____ - CKD V
____ - Other
Stages of Chronic Kidney Disease*
Level Description GFR
G1 Normal or High >90
G2 Mildly decreased 60-89
G3a Mildly to moderately decreased 45-59
G3b Moderately to severely decreased 30-44
G4 Severely decreased 15-29
G5 Kidney failure <15
Use of terms such as suspected, likely, concern for, or probable (associated with a specific diagnosis that is being evaluated, monitored, or treated as if it exists) are acceptable and can be coded in the inpatient setting, when documented at the
time of discharge.
Thank you,
Raisa aMyo RN, BSN
CDI Specialist
tiger text
Please use your independent medical judgment in providing your response.
*Source: Kidney Disease: Improving Global Outcomes (KDIGO) 2012
[2025-06-19 16:40] LABS: Glucose - Point of Care 111 mg/dl (70-99)
[2025-06-19] MEDS: NOVOLOG FLEXPEN-LOW RESISTANCE SC (17:22)
[2025-06-19] MEDS: APRESOLINE 75 MG PO (17:23)
[2025-06-19 20:48] LABS: Glucose - Point of Care 202 mg/dl (70-99)
[2025-06-19] MEDS: LIPITOR 40 MG PO (21:07)
[2025-06-19 23:13] VITALS: BP 160/68
[2025-06-20] MEDS: SYNTHROID 112 MCG PO (05:39)
[2025-06-20 06:00] VITALS: BMI 24.0
[2025-06-20 06:33] LABS: Hematocrit 24.1 % (39.0-52.0); Hemoglobin 7.9 g/dL (13.0-18.0); Mean Corp Hgb Conc. 32.8 g/dL (33.0-37.0); Mean Corpuscular Volume 92.7 fL (80.0-94.0); Platelet Count 108 10^3/uL (130-400); Red Cell Dist. Width 15.8 % (11.5-14.5)
[2025-06-20 06:52] LABS: ALT (SGPT) < 10 U/L (0-50); AST (SGOT) 24 U/L (17-59); Albumin 3.1 g/dl (3.5-5.0); Alkaline Phosphatase 104 U/L (38-126); Blood Urea Nitrogen 53 mg/dl (9-20); Calcium 7.8 mg/dl (8.4-10.2); Carbon Dioxide 28 mmol/L (22-30); Chloride 98 mmol/L (98-107); Estimated Creatinine Clearance 32 ml/min; Glucose 151 mg/dl (70-99); Potassium 3.8 mmol/L (3.5-5.1); Sodium 130 mmol/L (135-145); Total Protein 5.8 g/dl (6.3-8.2); eGFR 31.91
[2025-06-20 07:22] VITALS: BP 191/87
[2025-06-20] MEDS: HEPARIN 5000 UNITS SC ×2 (07:44→21:24)
[2025-06-20] MEDS: LASIX 40 MG IV ×2 (07:46→17:04)
[2025-06-20] MEDS: ASPIR LOW (ENTERIC COATED) 81 MG PO (07:47)
[2025-06-20] MEDS: IMDUR (EXTENDED RELEASE) 30 MG PO (07:47)
[2025-06-20] MEDS: COREG 6.25 MG PO ×2 (07:47→21:23)
[2025-06-20 08:01] LABS: Glucose - Point of Care 169 mg/dl (70-99)
[2025-06-20] MEDS: LANTUS 0.1 UNITS SC (08:01)
[2025-06-20] MEDS: NOVOLOG FLEXPEN 3 UNITS SC ×3 (08:03→17:05)
[2025-06-20] MEDS: NOVOLOG FLEXPEN-LOW RESISTANCE 1 UNITS SC ×2 (08:03→17:05)
[2025-06-20] MEDS: MANNITOL 25% 12.5 GRAMS IV (09:06)
--- NOTE | 2025-06-20 09:38 | W.PN.NEPH.HD ---
Assessment
-
Patient seen on dialysis
Systolic blood pressure 178 at current UF
Next dialysis will be scheduled for
Progress Note - Hemodialysis
-
Date of Service: June 20, 2025
Duration: 3 hours
Potassium Bath: 3
Calcium Bath: 2.5
Opti-Dialyzer: 160
Ultrafiltration: Other (2.5 kg is hemodynamically tolerated)
Blood Flow: 300
Dialysate Flow: 600
Heparin: None
EPO: None today
[2025-06-20] MEDS: HEPARIN 3900 UNITS INTRACATH (10:27)
[2025-06-20 11:43] LABS: Glucose - Point of Care 128 mg/dl (70-99)
[2025-06-20] MEDS: NOVOLOG FLEXPEN-LOW RESISTANCE SC (11:49)
[2025-06-20] MEDS: PROCARDIA XL (EXTENDED RELEASE) 30 MG PO ×2 (12:14→21:23)
--- NOTE | 2025-06-20 12:15 | CM ---
Patient seen at bedside
patient came from [facility]
PT rec Acute Rehab
explained to patient [facility] does not do HD - he was agreeable with [facility]
referral placed in [facility]
spoke with Stefany at [facility], no physiatry consult needed, let her know when patient is ready for dc so she can make sure he has a HD chair
CM discussed outpatient HD with patient - [facility] [address] preferred by patient
CM faxed clinicals, checklist, flow sheets to [facility] at [phone]
CM also called Brie [phone] at [facility] and updated
tt hospitalist/Dr. Santos
PLAN: Acute Rehab, when stable, CM in process of setting up outpatient HD
--- NOTE | 2025-06-20 12:55 | W.PN.HOSP.TC ---
Today's Communication/Plan
-
Cont HD
CXR tomorrow AM
Assessment / Plan
Assessment / Plan
#Acute hypoxemic respiratory failure
#Acute on Chronic HFrecEF
#Large transudative left pleural effusion
-History of HFrEF with LVEF 35% from ischemic disease; echo recently with LVEF 53%
-Home GDMT includes carvedilol, SGLT2i, aspirin, high intensity statin; PO torsemide for volume status
-Presented with hypoxemia necessitating 4 L O2; CXR showed pulmonary congestion and large left pleural effusion
-Started on IV Lasix in place of torsemide, 40 mg twice daily, without improvement in O2 or renal function
-Nephrology started dialysis for ultrafiltration, continue at nephrology's discretion
-SpO2 goal >90%, wean appropriately
�X-ray tomorrow morning
#JAMAR on CKD stage V
-Degree of cardiorenal physiology; creatinine baseline has been near 4.0 during recent hospital stay
-Complicated by anemia of chronic kidney disease; no signs of BMD or acidemia chronically
-Was started on IV Lasix in place of home torsemide due to decompensated heart failure as above
-Monitor BMP and UOP very closely on diuretics, monitor for azotemic symptom
-Started on hemodialysis;, continue at nephrology's discretion
-Avoid nephrotoxins
#Acute on chronic anemia of CKD
-Likely worsening anemia due to decreased EPO in the context of JAMAR
-Received erythropoietin stimulating agent with nephrology
-Continue to trend CBC and monitor for bleeding
-Hemoglobin this morning 6.8, receiving first HD session
-Nephrology to give BUD today
-Repeat CBC after HD, transfuse if Hb <7
#IDDM 2 with hyperglycemia
-Recently with DKA/HHS, status post aggressive IV fluids and insulin protocol with transition back to SQ regimen
-Current regimen Lantus 15 units daily with NovoLog 6 units at lunch and dinner, NovoLog 8 units with breakfast
-Was briefly trialed on slightly higher doses of Lantus and aspart though became hypoglycemic
-Continue current insulin regimen, BG goal 140-180, avoid hypoglycemia
#Chronic hyponatremia
-Mild, clinically insignificant
-Stable with fluid restriction
-Trend BMP
#Primary hypertension
-Home regimen includes carvedilol twice daily, hydralazine BID, and isosorbide mononitrate
-Was started on Procardia while hospitalized here on 06/02
-Continue to monitor blood pressure and titrate as needed
#Hypothyroidism
-Home regimen includes levothyroxine
-Biochemically and clinically euthyroid
#CAD s/p PCI
#Dyslipidemia
-Home regimen includes beta-tiffany, high intensity statin, aspirin
-LDL goal <70 for secondary prevention
-No signs of ACS
Diet: Carbohydrate controlled, 2000-calorie
Thromboprophylaxis: SQ heparin
CODE STATUS: Full code
Disposition: SNF versus home therapy
Anticipated Discharge: 24 - 48 hours
Subjective/Interval History
-
Date of Service: June 20, 2025
No acute events overnight
Objective Data
-
Labs:
Laboratory Results
06/20/25
05:59
WBC 3.7 L
Hgb 7.9 L
Hct 24.1 L
Plt Count 108 L D
Sodium 130 L
Potassium 3.8
Chloride 98
Carbon Dioxide 28
BUN 53 H
Creatinine 2.3 H
Glucose 151 H
Calcium 7.8 L
Total Bilirubin 0.5
AST 24
ALT < 10
Alkaline Phosphatase 104
Vital Signs:
Vital Signs
Temp Pulse Resp BP Pulse Ox
98.6 F 68 18 191/87 92
06/20/25 07:22 06/20/25 07:22 06/20/25 07:22 06/20/25 07:22 06/20/25 07:22
I&O
06/19/25 06/20/25 06/21/25
06:59 06:59 06:59
Intake Total 960 / 960 1280 / 1280
Output Total 100 / 100
Balance 860 / 860 1280 / 1280
Review of Systems
-
History Source: Patient
All other systems: Not reviewed unless documented
Data Reviewed
-
Diagnostic Radiology: Report Reviewed by me
Ultrasound: Report Reviewed by me
Labs: Labs Reviewed by me
[2025-06-20 15:00] VITALS: BP 128/58
[2025-06-20 16:52] LABS: Glucose - Point of Care 191 mg/dl (70-99)
[2025-06-20] MEDS: APRESOLINE 75 MG PO (17:05)
[2025-06-20] MEDS: LIPITOR 40 MG PO (21:23)
[2025-06-20 21:43] LABS: Glucose - Point of Care 179 mg/dl (70-99)
[2025-06-20] MEDS: MELATONIN 5 MG PO (22:04)
[2025-06-20 23:10] VITALS: BP 125/57
--- NOTE | 2025-06-21 02:30 | DOWNTIME ---
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 Downtime documentation of patient's care, including medication administrations, has been reconciled in the electronic record per guidelines. Refer to the
patient's paper chart under the miscellaneous tab to see printed paper medication records and downtime forms.
[2025-06-21] MEDS: SYNTHROID 112 MCG PO (05:20)
[2025-06-21 06:00] VITALS: BMI 23.1
[2025-06-21 06:56] LABS: ALT (SGPT) < 10 U/L (0-50); AST (SGOT) 24 U/L (17-59); Albumin 3.1 g/dl (3.5-5.0); Alkaline Phosphatase 106 U/L (38-126); Blood Urea Nitrogen 40 mg/dl (9-20); Calcium 7.9 mg/dl (8.4-10.2); Carbon Dioxide 30 mmol/L (22-30); Chloride 98 mmol/L (98-107); Estimated Creatinine Clearance 32 ml/min; Glucose 153 mg/dl (70-99); Potassium 4.1 mmol/L (3.5-5.1); Sodium 133 mmol/L (135-145); Total Protein 5.5 g/dl (6.3-8.2); eGFR 31.91
[2025-06-21 07:00] VITALS: BP 154/69
[2025-06-21 07:28] LABS: Hematocrit 25.7 % (39.0-52.0); Hemoglobin 8.2 g/dL (13.0-18.0); Mean Corp Hgb Conc. 31.9 g/dL (33.0-37.0); Mean Corpuscular Volume 96.6 fL (80.0-94.0); Platelet Count 60 10^3/uL (130-400); Red Cell Dist. Width 15.6 % (11.5-14.5)
[2025-06-21 07:55] LABS: Glucose - Point of Care 168 mg/dl (70-99)
[2025-06-21] MEDS: COREG 6.25 MG PO ×2 (08:59→22:53)
[2025-06-21] MEDS: PROCARDIA XL (EXTENDED RELEASE) 30 MG PO ×2 (08:59→22:54)
[2025-06-21] MEDS: ASPIR LOW (ENTERIC COATED) 81 MG PO (08:59)
[2025-06-21] MEDS: IMDUR (EXTENDED RELEASE) 30 MG PO (09:01)
[2025-06-21] MEDS: HEPARIN 5000 UNITS SC ×2 (09:02→22:54)
[2025-06-21] MEDS: LASIX 40 MG IV ×2 (09:02→16:58)
[2025-06-21] MEDS: NOVOLOG FLEXPEN 3 UNITS SC ×3 (09:02→18:18)
[2025-06-21] MEDS: NOVOLOG FLEXPEN-LOW RESISTANCE 1 UNITS SC (09:03)
[2025-06-21] MEDS: LANTUS 0.1 UNITS SC (09:08)
[2025-06-21 12:00] VITALS: BP 126/56; PULSE 52; O2SAT 92
--- NOTE | 2025-06-21 12:00 | PTCARENOTE ---
pt's RA Sao2 at while sleeping dropped to 60's when PT and OT went to work wit patient. patient denied feeling sob. placed back on 4L NC with sao2 returning to 94-95%. able to work with therapy. Dr. Calvo made aware, will continue to monitor.
[2025-06-21 12:06] LABS: Glucose - Point of Care 248 mg/dl (70-99)
[2025-06-21] MEDS: NOVOLOG FLEXPEN-LOW RESISTANCE 2 UNITS SC (12:23)
--- NOTE | 2025-06-21 13:44 | W.PN.NEPH.PH ---
Today's Communication / Plan
-
Dialysis tomorrow
Assessment/Plan
-
Assessment
JAMAR
CKD 4
mild hyperkalemia
Acute on chr anemia
CAD s/p PCI
Diabetes mellitus type 2
Hypertension
large left pleural effusion
Acute on chronic Heart failure reduced ejection fraction 35%
FTT
Hyponatremia
Metabolic acidosis
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
Hypothyroidism
Plan
worsening azotemia
BP stable
Thoracentesis status post 1200 cc June 15
renal diet and FR
Patient agreed to dialysis first treatment 06/17 via permacath
Next treatment will be Thursday second treatment
Will need dialysis placement outpatient
Continue TTS remains on oxygen despite ultrafiltration will be more aggressive
We may need to get cardiology on board for right heart cath as they were initially consulted prior to starting dialysis with discussion that may need right heart cath going forward if breathing does not improve with ultrafiltration
-
-
Date of Service: June 21, 2025
CC / HPI / ROS
-
Chief Complaint:
Shortness of breath
History of Present Illness:
Progressive CKD requiring implementation of dialysis
Review of Systems:
4 L oxygen down to 3 L
No chest pain
Labs
-
Labs:
WBC 3.8 10^3/uL (4.8-10.8) L 06/21/25 05:54
RBC 2.66 10^6/uL (4.70-6.10) L 06/21/25 05:54
Hgb 8.2 g/dL (13.0-18.0) L 06/21/25 05:54
Hct 25.7 % (39.0-52.0) L 06/21/25 05:54
Plt Count 60 10^3/uL (130-400) L D 06/21/25 05:54
Sodium 133 mmol/L (135-145) L 06/21/25 05:54
Potassium 4.1 mmol/L (3.5-5.1) 06/21/25 05:54
Chloride 98 mmol/L (98-107) 06/21/25 05:54
Carbon Dioxide 30 mmol/L (22-30) 06/21/25 05:54
BUN 40 mg/dl (9-20) H 06/21/25 05:54
Creatinine 2.3 mg/dL (0.7-1.3) H 06/21/25 05:54
eGFR 31.91 06/21/25 05:54
Glucose 153 mg/dl (70-99) H 06/21/25 05:54
Calcium 7.9 mg/dl (8.4-10.2) L 06/21/25 05:54
Hjw-L-Eqbxuswgylc Pept 47588 pg/ml 06/14/25 18:16
Albumin 3.1 g/dl (3.5-5.0) L 06/21/25 05:54
Physical Exam
-
Vital Signs:
Vital Signs
Temp Pulse Resp BP Pulse Ox
97.9 F 59 16 154/69 94
06/21/25 07:00 06/21/25 07:00 06/21/25 07:00 06/21/25 07:00 06/21/25 07:00
Respiratory:: Bilateral: CTA
Abdomen:: Soft
Bowel Sounds:: Normal
Extremity Edema:: None: Bilateral:
--- NOTE | 2025-06-21 13:59 | W.PN.HOSP.TC ---
Addendum entered and electronically signed by Horace Calvo MD 06/21/25 15:45:
CKD IV
Original Note:
Today's Communication/Plan
-
HD
wean o2
Assessment / Plan
Assessment / Plan
#Acute hypoxemic respiratory failure
#Acute on Chronic HFrecEF
#Large transudative left pleural effusion
-History of HFrEF with LVEF 35% from ischemic disease; echo recently with LVEF 53%
-Home GDMT includes carvedilol, SGLT2i, aspirin, high intensity statin; PO torsemide for volume status
-Presented with hypoxemia necessitating 4 L O2; CXR showed pulmonary congestion and large left pleural effusion
-Started on IV Lasix in place of torsemide, 40 mg twice daily, without improvement in O2 or renal function
-Nephrology started dialysis for ultrafiltration, continue at nephrology's discretion
-SpO2 goal >90%, wean appropriately
�X-ray tomorrow -effusion, left
#JAMAR on CKD stage V
-Degree of cardiorenal physiology; creatinine baseline has been near 4.0 during recent hospital stay
-Complicated by anemia of chronic kidney disease; no signs of BMD or acidemia chronically
-Was started on IV Lasix in place of home torsemide due to decompensated heart failure as above
-Monitor BMP and UOP very closely on diuretics, monitor for azotemic symptom
-Started on hemodialysis;, continue at nephrology's discretion
-Avoid nephrotoxins
#Acute on chronic anemia of CKD
-Likely worsening anemia due to decreased EPO in the context of JAMAR
-Received erythropoietin stimulating agent with nephrology
-Continue to trend CBC and monitor for bleeding
-Hemoglobin this morning 6.8, receiving first HD session
-Nephrology to give BUD today
-Repeat CBC after HD, transfuse if Hb <7
#IDDM 2 with hyperglycemia
-Recently with DKA/HHS, status post aggressive IV fluids and insulin protocol with transition back to SQ regimen
-Current regimen Lantus 15 units daily with NovoLog 6 units at lunch and dinner, NovoLog 8 units with breakfast
-Was briefly trialed on slightly higher doses of Lantus and aspart though became hypoglycemic
-Continue current insulin regimen, BG goal 140-180, avoid hypoglycemia
#Chronic hyponatremia
-Mild, clinically insignificant
-Stable with fluid restriction
-Trend BMP
#Primary hypertension
-Home regimen includes carvedilol twice daily, hydralazine BID, and isosorbide mononitrate
-Was started on Procardia while hospitalized here on 06/02
-Continue to monitor blood pressure and titrate as needed
#Hypothyroidism
-Home regimen includes levothyroxine
-Biochemically and clinically euthyroid
#CAD s/p PCI
#Dyslipidemia
-Home regimen includes beta-tiffany, high intensity statin, aspirin
-LDL goal <70 for secondary prevention
-No signs of ACS
Diet: Carbohydrate controlled, 2000-calorie
Thromboprophylaxis: SQ heparin
CODE STATUS: Full code
Disposition: SNF versus home therapy
Anticipated Discharge: > 48 hours
Subjective/Interval History
-
Date of Service: June 21, 2025
no acute events
Objective Data
-
Labs:
Laboratory Results
06/21/25
05:54
WBC 3.8 L
Hgb 8.2 L
Hct 25.7 L
Plt Count 60 L D
Sodium 133 L
Potassium 4.1
Chloride 98
Carbon Dioxide 30
BUN 40 H
Creatinine 2.3 H
Glucose 153 H
Calcium 7.9 L
Total Bilirubin 0.4
AST 24
ALT < 10
Alkaline Phosphatase 106
Vital Signs:
Vital Signs
Temp Pulse Resp BP Pulse Ox
97.9 F 59 16 154/69 94
06/21/25 07:00 06/21/25 07:00 06/21/25 07:00 06/21/25 07:00 06/21/25 07:00
I&O
06/20/25 06/21/25 06/22/25
06:59 06:59 06:59
Intake Total 1280 / 1280 920 / 920
Balance 1280 / 1280 920 / 920
Review of Systems
-
History Source: Patient
All other systems: Not reviewed unless documented
Physical Exam
-
General: Well Developed, No Apparent Distress and Appears Chronically Ill
HEENT: Normocephalic, Atraumatic, Moist Mucous Membranes and Anicteric
Respiratory: Non Labored Respirations and Decreased Breath Sounds (Bilateral bases); Negative Accessory Resp Muscle Use
Cardiac: Regular Rhythm and S1/S2; Negative Murmur, Rub, JVD or Gallop
GI: Soft, Nontender, Nondistended and Normal Bowel Sounds
Musculoskeletal: No Clubbing, No Cyanosis and Other (1+ edema)
Skin: Warm and Dry; Negative Rash
Neuro: AO x 3, Nonfocal/Grossly Intact and Central Nerve's Intact
Psych: Calm
Data Reviewed
-
Diagnostic Radiology: Report Reviewed by me
Ultrasound: Report Reviewed by me
Labs: Labs Reviewed by me
--- NOTE | 2025-06-21 14:37 | CM ---
Patient seen at bedside
cont on oxygen
PT rec Acute rehab
spoke with Stefany - referral in [facility]
will go to [facility] as they do HD
spoke with Stefany chaudhary
updated Reanna An at [facility] Intake [phone] ext [phone] that patient to go to acute rehab when stable
outpatient HD treatment information from [facility] that was received by fax was given to patient
Outpatient HD set up at [address] , [address], [facility] at 4:00pm once rehab completed
PLAN: [facility] when stable, Will need to obtain ins authorization
[2025-06-21 15:00] VITALS: BP 110/53
[2025-06-21 16:51] LABS: Glucose - Point of Care 289 mg/dl (70-99)
[2025-06-21] MEDS: APRESOLINE 75 MG PO (17:03)
[2025-06-21] MEDS: NOVOLOG FLEXPEN-LOW RESISTANCE 3 UNITS SC (18:18)
[2025-06-21 20:53] LABS: Glucose - Point of Care 264 mg/dl (70-99)
[2025-06-21 22:51] VITALS: BP 174/80
[2025-06-21] MEDS: LIPITOR 40 MG PO (22:54)
[2025-06-21 22:58] VITALS: BP 166/74
[2025-06-22 06:00] VITALS: BMI 23.2
[2025-06-22] MEDS: SYNTHROID 112 MCG PO (06:09)
[2025-06-22 07:00] VITALS: BP 145/68
[2025-06-22 07:13] LABS: ALT (SGPT) < 10 U/L (0-50); AST (SGOT) 24 U/L (17-59); Albumin 3.4 g/dl (3.5-5.0); Alkaline Phosphatase 124 U/L (38-126); Blood Urea Nitrogen 59 mg/dl (9-20); Calcium 8.3 mg/dl (8.4-10.2); Carbon Dioxide 29 mmol/L (22-30); Chloride 98 mmol/L (98-107); Estimated Creatinine Clearance 26 ml/min; Glucose 237 mg/dl (70-99); Potassium 4.6 mmol/L (3.5-5.1); Sodium 134 mmol/L (135-145); Total Protein 6.0 g/dl (6.3-8.2); eGFR 24.16
[2025-06-22] MEDS: NOVOLOG FLEXPEN-LOW RESISTANCE SC ×2 (07:45→14:36)
[2025-06-22] MEDS: COREG PO (07:45)
[2025-06-22] MEDS: NOVOLOG FLEXPEN SC ×2 (07:45→14:38)
[2025-06-22] MEDS: PROCARDIA XL (EXTENDED RELEASE) PO (07:45)
[2025-06-22 08:10] LABS: Glucose - Point of Care 180 mg/dl (70-99)
[2025-06-22 08:48] LABS: Hematocrit 26.3 % (39.0-52.0); Hemoglobin 8.3 g/dL (13.0-18.0); Mean Corp Hgb Conc. 31.6 g/dL (33.0-37.0); Mean Corpuscular Volume 95.3 fL (80.0-94.0); Platelet Count 80 10^3/uL (130-400); Red Cell Dist. Width 15.3 % (11.5-14.5)
[2025-06-22] MEDS: RETACRIT 10000 UNITS IV (09:18)
[2025-06-22] MEDS: HEPARIN 5000 UNITS SC ×2 (11:21→21:11)
[2025-06-22] MEDS: IMDUR (EXTENDED RELEASE) 30 MG PO (11:21)
[2025-06-22] MEDS: ASPIR LOW (ENTERIC COATED) 81 MG PO (11:21)
[2025-06-22] MEDS: LASIX 40 MG IV ×2 (11:21→17:15)
[2025-06-22] MEDS: COREG 6.25 MG PO ×2 (11:26→21:10)
[2025-06-22] MEDS: PROCARDIA XL (EXTENDED RELEASE) 30 MG PO ×2 (11:27→21:11)
[2025-06-22] MEDS: LANTUS 0.1 UNITS SC (11:28)
[2025-06-22 11:32] LABS: Glucose - Point of Care 211 mg/dl (70-99)
--- NOTE | 2025-06-22 12:00 | W.PN.NEPH.HD ---
Assessment
-
Seen on dialysis ultrafiltration 3.5 L blood pressure remains elevated. Will check chest x-ray postdialysis with ongoing oxygen needs
Progress Note - Hemodialysis
-
Date of Service: June 22, 2025
Duration: 3 hours
Potassium Bath: 3
Calcium Bath: 2.5
Opti-Dialyzer: 160
Ultrafiltration: Other (2.5 kg is hemodynamically tolerated)
Blood Flow: 300
Dialysate Flow: 600
Heparin: None
EPO: Yes
--- NOTE | 2025-06-22 12:46 | W.PN.HOSP.TC ---
Today's Communication/Plan
-
CXR post HD
weaning o2
Assessment / Plan
Assessment / Plan
#Acute hypoxemic respiratory failure
#Acute on Chronic HFrecEF
#Large transudative left pleural effusion
-History of HFrEF with LVEF 35% from ischemic disease; echo recently with LVEF 53%
-Home GDMT includes carvedilol, SGLT2i, aspirin, high intensity statin; PO torsemide for volume status
-Presented with hypoxemia necessitating 4 L O2; CXR showed pulmonary congestion and large left pleural effusion
-Started on IV Lasix in place of torsemide, 40 mg twice daily, without improvement in O2 or renal function
-Nephrology started dialysis for ultrafiltration, continue at nephrology's discretion
-SpO2 goal >90%, wean appropriately
�X-ray again today to eval effusions
#JAMAR on CKD stage V
-Degree of cardiorenal physiology; creatinine baseline has been near 4.0 during recent hospital stay
-Complicated by anemia of chronic kidney disease; no signs of BMD or acidemia chronically
-Was started on IV Lasix in place of home torsemide due to decompensated heart failure as above
-Monitor BMP and UOP very closely on diuretics, monitor for azotemic symptom
-Started on hemodialysis;, continue at nephrology's discretion
-Avoid nephrotoxins
#Acute on chronic anemia of CKD
-Likely worsening anemia due to decreased EPO in the context of JAMAR
-Received erythropoietin stimulating agent with nephrology
-Continue to trend CBC and monitor for bleeding
-Hemoglobin this morning 6.8, receiving first HD session
-Nephrology to give BUD today
-Repeat CBC after HD, transfuse if Hb <7
#IDDM 2 with hyperglycemia
-Recently with DKA/HHS, status post aggressive IV fluids and insulin protocol with transition back to SQ regimen
-Current regimen Lantus 15 units daily with NovoLog 6 units at lunch and dinner, NovoLog 8 units with breakfast
-Was briefly trialed on slightly higher doses of Lantus and aspart though became hypoglycemic
-Continue current insulin regimen, BG goal 140-180, avoid hypoglycemia
#Thrombocytopenia
-f/u HIT panel
-platelets trending up
#Chronic hyponatremia
-Mild, clinically insignificant
-Stable with fluid restriction
-Trend BMP
#Primary hypertension
-Home regimen includes carvedilol twice daily, hydralazine BID, and isosorbide mononitrate
-Was started on Procardia while hospitalized here on 06/02
-Continue to monitor blood pressure and titrate as needed
#Hypothyroidism
-Home regimen includes levothyroxine
-Biochemically and clinically euthyroid
#CAD s/p PCI
#Dyslipidemia
-Home regimen includes beta-tiffany, high intensity statin, aspirin
-LDL goal <70 for secondary prevention
-No signs of ACS
Diet: Carbohydrate controlled, 2000-calorie
Thromboprophylaxis: SQ heparin
CODE STATUS: Full code
Disposition: SNF versus home therapy
Anticipated Discharge: 24 - 48 hours
Subjective/Interval History
-
Date of Service: June 22, 2025
hd
Objective Data
-
Labs:
Laboratory Results
06/22/25
06:22
WBC 4.4 L
Hgb 8.3 L
Hct 26.3 L
Plt Count 80 L D
Sodium 134 L
Potassium 4.6
Chloride 98
Carbon Dioxide 29
BUN 59 H
Creatinine 2.9 H
Glucose 237 H
Calcium 8.3 L
Total Bilirubin 0.4
AST 24
ALT < 10
Alkaline Phosphatase 124
Vital Signs:
Vital Signs
Temp Pulse Resp BP Pulse Ox
97.5 F 71 17 188/93 90
06/22/25 07:00 06/22/25 11:27 06/22/25 07:00 06/22/25 11:27 06/22/25 07:00
I&O
06/21/25 06/22/25 06/23/25
06:59 06:59 06:59
Intake Total 920 / 920 1160 / 1160
Balance 920 / 920 1160 / 1160
Review of Systems
-
History Source: Patient
All other systems: Not reviewed unless documented
Physical Exam
-
General: Well Developed, No Apparent Distress and Appears Chronically Ill
HEENT: Normocephalic, Atraumatic, Moist Mucous Membranes and Anicteric
Respiratory: Non Labored Respirations and Decreased Breath Sounds (Bilateral bases); Negative Accessory Resp Muscle Use
Cardiac: Regular Rhythm and S1/S2; Negative Murmur, Rub, JVD or Gallop
GI: Soft, Nontender, Nondistended and Normal Bowel Sounds
Musculoskeletal: No Clubbing, No Cyanosis and Other (1+ edema)
Skin: Warm and Dry; Negative Rash
Neuro: AO x 3, Nonfocal/Grossly Intact and Central Nerve's Intact
Psych: Calm
Data Reviewed
-
Diagnostic Radiology: Report Reviewed by me
Ultrasound: Report Reviewed by me
Labs: Labs Reviewed by me
[2025-06-22 14:44] LABS: Glucose - Point of Care 213 mg/dl (70-99)
[2025-06-22] MEDS: NOVOLOG FLEXPEN-LOW RESISTANCE 2 UNITS SC ×2 (14:48→18:26)
[2025-06-22 14:51] VITALS: BP 152/73
[2025-06-22 16:51] LABS: Glucose - Point of Care 205 mg/dl (70-99)
[2025-06-22] MEDS: APRESOLINE 75 MG PO (17:17)
[2025-06-22] MEDS: NOVOLOG FLEXPEN 3 UNITS SC (18:25)
[2025-06-22 21:09] VITALS: BP 155/70
[2025-06-22] MEDS: MELATONIN 5 MG PO (21:12)
[2025-06-22] MEDS: LIPITOR 40 MG PO (21:12)
[2025-06-22 22:05] LABS: Glucose - Point of Care 188 mg/dl (70-99)
[2025-06-22 23:23] VITALS: BP 121/57
[2025-06-23 05:50] VITALS: BMI 22.1
[2025-06-23] MEDS: SYNTHROID 112 MCG PO (05:56)
[2025-06-23 06:40] LABS: Hematocrit 23.9 % (39.0-52.0); Hemoglobin 8.0 g/dL (13.0-18.0); Mean Corp Hgb Conc. 33.5 g/dL (33.0-37.0); Mean Corpuscular Volume 93.0 fL (80.0-94.0); Red Cell Dist. Width 14.9 % (11.5-14.5)
[2025-06-23 06:53] LABS: ALT (SGPT) < 10 U/L (0-50); AST (SGOT) 25 U/L (17-59); Albumin 3.3 g/dl (3.5-5.0); Alkaline Phosphatase 100 U/L (38-126); Blood Urea Nitrogen 43 mg/dl (9-20); Calcium 8.1 mg/dl (8.4-10.2); Carbon Dioxide 27 mmol/L (22-30); Chloride 98 mmol/L (98-107); Estimated Creatinine Clearance 34 ml/min; Glucose 174 mg/dl (70-99); Potassium 4.4 mmol/L (3.5-5.1); Sodium 132 mmol/L (135-145); Total Protein 6.0 g/dl (6.3-8.2); eGFR 35.59
[2025-06-23 08:05] VITALS: BP 156/69
[2025-06-23 08:23] LABS: Platelet Count 49 10^3/uL (130-400)
[2025-06-23 08:24] LABS: Glucose - Point of Care 211 mg/dl (70-99)
[2025-06-23 08:25] LABS: Anisocytosis 1+; Hypochromasia 1+; Normal RBC Morphology No; Polychromasia 1+
[2025-06-23 08:26] LABS: Acanthocytes 1+; Ovalocytes 1+; Schistocytes 1+
[2025-06-23] MEDS: ASPIR LOW (ENTERIC COATED) 81 MG PO (08:26)
[2025-06-23] MEDS: IMDUR (EXTENDED RELEASE) 30 MG PO (08:26)
[2025-06-23] MEDS: PROCARDIA XL (EXTENDED RELEASE) 30 MG PO ×2 (08:26→20:35)
[2025-06-23] MEDS: COREG 6.25 MG PO ×2 (08:26→20:35)
[2025-06-23] MEDS: LASIX 40 MG IV ×2 (08:27→17:17)
[2025-06-23] MEDS: HEPARIN 5000 UNITS SC (08:27)
[2025-06-23] MEDS: LANTUS 0.1 UNITS SC (09:40)
[2025-06-23 09:56] LABS: Glucose - Point of Care 184 mg/dl (70-99)
[2025-06-23] MEDS: NOVOLOG FLEXPEN 3 UNITS SC (09:58)
[2025-06-23] MEDS: NOVOLOG FLEXPEN-LOW RESISTANCE 1 UNITS SC (09:59)
[2025-06-23 12:37] LABS: Glucose - Point of Care 314 mg/dl (70-99)
--- NOTE | 2025-06-23 12:41 | W.PN.NEPH.PH ---
Today's Communication / Plan
-
Dialysis tomorrow orders provided
CT scan of chest today
Assessment/Plan
-
Assessment
JAMAR
CKD 4
mild hyperkalemia
Acute on chr anemia
CAD s/p PCI
Diabetes mellitus type 2
Hypertension
large left pleural effusion
Acute on chronic Heart failure reduced ejection fraction 35%
FTT
Hyponatremia
Metabolic acidosis
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
Hypothyroidism
Plan
Next dialysis will be planned for tomorrow, we will continue to reduce fluid status as hemodynamically tolerated in setting of
Per CT scan of chest today re: continued
Thoracentesis status post 1200 cc June 15
renal diet and FR to continue
Continue TTS remains on oxygen despite ultrafiltration will be more aggressive
-
-
Date of Service: June 23, 2025
CC / HPI / ROS
-
Chief Complaint:
Shortness of breath
History of Present Illness:
Progressive CKD requiring implementation of dialysis
Hemodynamically stable
Currently on Thursday dialysis schedule
Review of Systems:
Remains short of breath with exertion
Remains on O2
No chest pain
Labs
-
Labs:
WBC 4.2 10^3/uL (4.8-10.8) L 06/23/25 05:48
RBC 2.57 10^6/uL (4.70-6.10) L 06/23/25 05:48
Hgb 8.0 g/dL (13.0-18.0) L 06/23/25 05:48
Hct 23.9 % (39.0-52.0) L 06/23/25 05:48
Plt Count 49 10^3/uL (130-400) L D 06/23/25 05:48
Sodium 132 mmol/L (135-145) L 06/23/25 05:48
Potassium 4.4 mmol/L (3.5-5.1) 06/23/25 05:48
Chloride 98 mmol/L (98-107) 06/23/25 05:48
Carbon Dioxide 27 mmol/L (22-30) 06/23/25 05:48
BUN 43 mg/dl (9-20) H 06/23/25 05:48
Creatinine 2.1 mg/dL (0.7-1.3) H 06/23/25 05:48
eGFR 35.59 06/23/25 05:48
Glucose 174 mg/dl (70-99) H 06/23/25 05:48
Calcium 8.1 mg/dl (8.4-10.2) L 06/23/25 05:48
Ljp-I-Lnivvtwwdud Pept 87915 pg/ml 06/14/25 18:16
Albumin 3.3 g/dl (3.5-5.0) L 06/23/25 05:48
Physical Exam
-
Vital Signs:
Vital Signs
Temp Pulse Resp BP Pulse Ox
97.7 F 60 16 156/69 99
06/23/25 08:05 06/23/25 08:27 06/23/25 08:05 06/23/25 08:27 06/23/25 08:59
Respiratory:: Bilateral: CTA
Abdomen:: Soft
Bowel Sounds:: Normal
Extremity Edema:: None: Bilateral:
--- NOTE | 2025-06-23 12:42 | CM ---
patient seen at bedside
cont with oxygen
CT chest today
updated Stefany at [facility]
CM spoke with Dr. Santos
outpatient HD set up with [facility] (post rehab) -- 4pm
PT rec acute rehab
will need ins auth
PLAN: Acute Rehab when stable
[2025-06-23] MEDS: NOVOLOG FLEXPEN-LOW RESISTANCE 4 UNITS SC (13:29)
[2025-06-23] MEDS: NOVOLOG FLEXPEN 5 UNITS SC ×2 (13:29→17:31)
[2025-06-23] MEDS: NOVOLOG FLEXPEN SC (13:32)
--- NOTE | 2025-06-23 13:38 | W.PN.HOSP.TC ---
Today's Communication/Plan
-
CT chest
Wean O2 as tolerated
HD
Assessment / Plan
Assessment / Plan
#Acute hypoxemic respiratory failure
#Acute on Chronic HFrecEF
#Large transudative left pleural effusion
-History of HFrEF with LVEF 35% from ischemic disease; echo recently with LVEF 53%
-Home GDMT includes carvedilol, SGLT2i, aspirin, high intensity statin; PO torsemide for volume status
-Presented with hypoxemia necessitating 4 L O2; CXR showed pulmonary congestion and large left pleural effusion
-Started on IV Lasix in place of torsemide, 40 mg twice daily, without improvement in O2 or renal function
-Nephrology started dialysis for ultrafiltration, continue at nephrology's discretion
-SpO2 goal >90%, wean appropriately
�X-ray again today to eval effusions still with effusions, atelectasis
� With continued hypoxia despite aggressive dialysis, CT chest with angio ordered
#JAMAR on CKD stage V
-Degree of cardiorenal physiology; creatinine baseline has been near 4.0 during recent hospital stay
-Complicated by anemia of chronic kidney disease; no signs of BMD or acidemia chronically
-Was started on IV Lasix in place of home torsemide due to decompensated heart failure as above
-Monitor BMP and UOP very closely on diuretics, monitor for azotemic symptom
-Started on hemodialysis;, continue at nephrology's discretion
-Avoid nephrotoxins
#Acute on chronic anemia of CKD
-Likely worsening anemia due to decreased EPO in the context of JAMAR
-Received erythropoietin stimulating agent with nephrology
-Continue to trend CBC and monitor for bleeding
-Hemoglobin this morning 6.8, receiving first HD session
-Nephrology to give BUD today
-Repeat CBC after HD, transfuse if Hb <7
#IDDM 2 with hyperglycemia
-Recently with DKA/HHS, status post aggressive IV fluids and insulin protocol with transition back to SQ regimen
-Current regimen Lantus 15 units daily with NovoLog 6 units at lunch and dinner, NovoLog 8 units with breakfast
-Was briefly trialed on slightly higher doses of Lantus and aspart though became hypoglycemic
-Continue current insulin regimen, BG goal 140-180, avoid hypoglycemia
#Thrombocytopenia
-f/u HIT panel
�Hold HSQ
#Chronic hyponatremia
-Mild, clinically insignificant
-Stable with fluid restriction
-Trend BMP
#Primary hypertension
-Home regimen includes carvedilol twice daily, hydralazine BID, and isosorbide mononitrate
-Was started on Procardia while hospitalized here on 06/02
-Continue to monitor blood pressure and titrate as needed
#Hypothyroidism
-Home regimen includes levothyroxine
-Biochemically and clinically euthyroid
#CAD s/p PCI
#Dyslipidemia
-Home regimen includes beta-tiffany, high intensity statin, aspirin
-LDL goal <70 for secondary prevention
-No signs of ACS
Diet: Carbohydrate controlled, 2000-calorie
Thromboprophylaxis: SQ heparin
CODE STATUS: Full code
Disposition: SNF versus home therapy
Anticipated Discharge: 24 - 48 hours
Subjective/Interval History
-
Date of Service: June 23, 2025
No acute events
Objective Data
-
Labs:
Laboratory Results
06/23/25
05:48
WBC 4.2 L
Hgb 8.0 L
Hct 23.9 L
Plt Count 49 L D
Sodium 132 L
Potassium 4.4
Chloride 98
Carbon Dioxide 27
BUN 43 H
Creatinine 2.1 H
Glucose 174 H
Calcium 8.1 L
Total Bilirubin 0.4
AST 25
ALT < 10
Alkaline Phosphatase 100
Vital Signs:
Vital Signs
Temp Pulse Resp BP Pulse Ox
97.7 F 60 16 156/69 99
06/23/25 08:05 06/23/25 08:27 06/23/25 08:05 06/23/25 08:27 06/23/25 08:59
I&O
06/22/25 06/23/25 06/24/25
06:59 06:59 06:59
Intake Total 1160 / 1160 900 / 900
Balance 1160 / 1160 900 / 900
Review of Systems
-
History Source: Patient
All other systems: Not reviewed unless documented
Data Reviewed
-
Diagnostic Radiology: Report Reviewed by me
Ultrasound: Report Reviewed by me
Labs: Labs Reviewed by me
[2025-06-23 14:45] VITALS: BP 125/62; PULSE 52; O2SAT 94
[2025-06-23 15:50] VITALS: BP 125/62
[2025-06-23] MEDS: APRESOLINE 75 MG PO (17:19)
[2025-06-23 17:30] LABS: Glucose - Point of Care 261 mg/dl (70-99)
[2025-06-23] MEDS: NOVOLOG FLEXPEN-LOW RESISTANCE 3 UNITS SC (17:31)
[2025-06-23] MEDS: MELATONIN 5 MG PO (21:19)
[2025-06-23] MEDS: LIPITOR 40 MG PO (21:19)
[2025-06-23 22:32] LABS: Glucose - Point of Care 178 mg/dl (70-99)
[2025-06-23 23:55] VITALS: BP 157/63
[2025-06-24] MEDS: SYNTHROID 112 MCG PO (05:37)
[2025-06-24 06:00] VITALS: BMI 22.6
[2025-06-24 07:27] LABS: Glucose - Point of Care 170 mg/dl (70-99)
[2025-06-24 07:37] LABS: Hematocrit 23.9 % (39.0-52.0); Hemoglobin 8.1 g/dL (13.0-18.0); Mean Corp Hgb Conc. 33.9 g/dL (33.0-37.0); Mean Corpuscular Volume 92.3 fL (80.0-94.0); Platelet Count 72 10^3/uL (130-400); Red Cell Dist. Width 15.0 % (11.5-14.5)
[2025-06-24 08:01] LABS: ALT (SGPT) < 10 U/L (0-50); AST (SGOT) 20 U/L (17-59); Albumin 3.2 g/dl (3.5-5.0); Alkaline Phosphatase 118 U/L (38-126); Blood Urea Nitrogen 57 mg/dl (9-20); Calcium 8.3 mg/dl (8.4-10.2); Carbon Dioxide 26 mmol/L (22-30); Chloride 97 mmol/L (98-107); Estimated Creatinine Clearance 24 ml/min; Glucose 144 mg/dl (70-99); Potassium 4.6 mmol/L (3.5-5.1); Sodium 129 mmol/L (135-145); Total Protein 5.9 g/dl (6.3-8.2); eGFR 22.30
[2025-06-24 08:28] VITALS: BP 111/47
[2025-06-24] MEDS: PROCARDIA XL (EXTENDED RELEASE) 30 MG PO ×2 (08:48→19:47)
[2025-06-24] MEDS: IMDUR (EXTENDED RELEASE) 30 MG PO (08:48)
[2025-06-24] MEDS: ASPIR LOW (ENTERIC COATED) 81 MG PO (08:48)
[2025-06-24] MEDS: COREG 6.25 MG PO ×2 (08:48→19:47)
[2025-06-24] MEDS: LANTUS 0.1 UNITS SC (08:49)
[2025-06-24] MEDS: LASIX 40 MG IV ×2 (08:49→17:04)
[2025-06-24] MEDS: NOVOLOG FLEXPEN-LOW RESISTANCE 1 UNITS SC (10:08)
[2025-06-24] MEDS: NOVOLOG FLEXPEN 5 UNITS SC ×4 (10:08→21:17)
--- NOTE | 2025-06-24 10:55 | W.PN.NEPH.PH ---
Today's Communication / Plan
-
Dialysis tomorrow
Assessment/Plan
-
Assessment
JAMAR
CKD 4
mild hyperkalemia
Acute on chr anemia
CAD s/p PCI
Diabetes mellitus type 2
Hypertension
large left pleural effusion
Acute on chronic Heart failure reduced ejection fraction 35%
FTT
Hyponatremia
Metabolic acidosis
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
Hypothyroidism
Plan
Next dialysis will be planned for tomorrow, we will continue to reduce fluid status as hemodynamically tolerated
Unfortunately due to scheduling conflicts and nursing availability he will be transition for dialysis tomorrow instead of today
He is stable for hold on dialysis as there is no acute requirement today
Per CT scan of chest today reviewed: Likely still due to underlying volume overload as well as pleural effusions
Discussed with primary service who plans to likely repeat thoracentesis
renal diet and FR to continue
-
-
Date of Service: June 24, 2025
CC / HPI / ROS
-
Chief Complaint:
Shortness of breath
History of Present Illness:
Progressive CKD requiring implementation of dialysis
Hemodynamically stable
Currently on Thursday dialysis schedule
Review of Systems:
Remains short of breath with exertion
Remains on O2
No chest pain
Labs
-
Labs:
WBC 4.7 10^3/uL (4.8-10.8) L 06/24/25 06:54
RBC 2.59 10^6/uL (4.70-6.10) L 06/24/25 06:54
Hgb 8.1 g/dL (13.0-18.0) L 06/24/25 06:54
Hct 23.9 % (39.0-52.0) L 06/24/25 06:54
Plt Count 72 10^3/uL (130-400) L D 06/24/25 06:54
Sodium 129 mmol/L (135-145) L 06/24/25 06:54
Potassium 4.6 mmol/L (3.5-5.1) 06/24/25 06:54
Chloride 97 mmol/L (98-107) L 06/24/25 06:54
Carbon Dioxide 26 mmol/L (22-30) 06/24/25 06:54
BUN 57 mg/dl (9-20) H 06/24/25 06:54
Creatinine 3.1 mg/dL (0.7-1.3) H 06/24/25 06:54
eGFR 22.30 06/24/25 06:54
Glucose 144 mg/dl (70-99) H 06/24/25 06:54
Calcium 8.3 mg/dl (8.4-10.2) L 06/24/25 06:54
Yet-N-Giswulkdsfp Pept 13566 pg/ml 06/14/25 18:16
Albumin 3.2 g/dl (3.5-5.0) L 06/24/25 06:54
Physical Exam
-
Vital Signs:
Vital Signs
Temp Pulse Resp BP Pulse Ox
98.9 F 59 19 111/47 96
06/24/25 08:28 06/24/25 08:48 06/24/25 08:28 06/24/25 08:48 06/24/25 08:28
Respiratory:: Bilateral: Coarse
Abdomen:: Soft
Bowel Sounds:: Normal
Extremity Edema:: None: Bilateral:
Ratliff Catheter: No
[2025-06-24 12:22] LABS: Glucose - Point of Care 294 mg/dl (70-99)
[2025-06-24] MEDS: NOVOLOG FLEXPEN-LOW RESISTANCE 3 UNITS SC (13:02)
--- NOTE | 2025-06-24 13:15 | W.PN.HOSP.TC ---
Today's Communication/Plan
-
HD tomorrow
Thora Thursday
Assessment / Plan
Assessment / Plan
#Acute hypoxemic respiratory failure
#Acute on Chronic HFrEF and HFpEF
#Large transudative left pleural effusion
-History of HFrEF with LVEF 35% from ischemic disease; echo recently with LVEF 53%
-Home GDMT includes carvedilol, SGLT2i, aspirin, high intensity statin; PO torsemide for volume status
-Presented with hypoxemia necessitating 4 L O2; CXR showed pulmonary congestion and large left pleural effusion
-Started on IV Lasix in place of torsemide, 40 mg twice daily, without improvement in O2 or renal function
-Nephrology started dialysis for ultrafiltration, continue at nephrology's discretion
-SpO2 goal >90%, wean appropriately
� With continued hypoxia despite aggressive dialysis, CT chest with angio ordered - no PE - pleural effusions; Can consult IR on Thursday for Thoracentesis; no clinical evidence of pneumonia/infection at this time
#JAMAR on CKD stage V
-Degree of cardiorenal physiology; creatinine baseline has been near 4.0 during recent hospital stay
-Complicated by anemia of chronic kidney disease; no signs of BMD or acidemia chronically
-Was started on IV Lasix in place of home torsemide due to decompensated heart failure as above
-Monitor BMP and UOP very closely on diuretics, monitor for azotemic symptom
-Started on hemodialysis;, continue at nephrology's discretion
-Avoid nephrotoxins
#Acute on chronic anemia of CKD
-Likely worsening anemia due to decreased EPO in the context of JAMAR
-Received erythropoietin stimulating agent with nephrology
-Continue to trend CBC and monitor for bleeding
-Hemoglobin this morning 6.8, receiving first HD session
-Nephrology to give BUD today
-Repeat CBC after HD, transfuse if Hb <7
#IDDM 2 with hyperglycemia
-Recently with DKA/HHS, status post aggressive IV fluids and insulin protocol with transition back to SQ regimen
-Current regimen Lantus 15 units daily with NovoLog 6 units at lunch and dinner, NovoLog 8 units with breakfast
-Was briefly trialed on slightly higher doses of Lantus and aspart though became hypoglycemic
-Continue current insulin regimen, BG goal 140-180, avoid hypoglycemia
#Thrombocytopenia
-f/u HIT panel
�Hold HSQ
#Chronic hyponatremia
-Mild, clinically insignificant
-Stable with fluid restriction
-Trend BMP
#Primary hypertension
-Home regimen includes carvedilol twice daily, hydralazine BID, and isosorbide mononitrate
-Was started on Procardia while hospitalized here on 06/02
-Continue to monitor blood pressure and titrate as needed
#Hypothyroidism
-Home regimen includes levothyroxine
-Biochemically and clinically euthyroid
#CAD s/p PCI
#Dyslipidemia
-Home regimen includes beta-tiffany, high intensity statin, aspirin
-LDL goal <70 for secondary prevention
-No signs of ACS
Diet: Carbohydrate controlled, 2000-calorie
Thromboprophylaxis: SQ heparin
CODE STATUS: Full code
Disposition: SNF versus home therapy
Anticipated Discharge: > 48 hours
Subjective/Interval History
-
Date of Service: June 24, 2025
hypoxic; will get hd tomorrow
Objective Data
-
Labs:
Laboratory Results
06/24/25
06:54
WBC 4.7 L
Hgb 8.1 L
Hct 23.9 L
Plt Count 72 L D
Sodium 129 L
Potassium 4.6
Chloride 97 L
Carbon Dioxide 26
BUN 57 H
Creatinine 3.1 H
Glucose 144 H
Calcium 8.3 L
Total Bilirubin 0.5
AST 20
ALT < 10
Alkaline Phosphatase 118
Vital Signs:
Vital Signs
Temp Pulse Resp BP Pulse Ox
98.9 F 59 19 111/47 96
06/24/25 08:28 06/24/25 08:48 06/24/25 08:28 06/24/25 08:48 06/24/25 10:45
I&O
06/23/25 06/24/25 06/25/25
06:59 06:59 06:59
Intake Total 900 / 900 120 / 120
Balance 900 / 900 120 / 120
Review of Systems
-
History Source: Patient
All other systems: Not reviewed unless documented
Data Reviewed
-
Diagnostic Radiology: Report Reviewed by me
CT Scan: Report Reviewed by me
Ultrasound: Report Reviewed by me
Labs: Labs Reviewed by me
[2025-06-24 16:40] VITALS: BP 167/73
[2025-06-24 16:52] LABS: Glucose - Point of Care 338 mg/dl (70-99)
[2025-06-24] MEDS: APRESOLINE 75 MG PO (17:00)
[2025-06-24] MEDS: NOVOLOG FLEXPEN-LOW RESISTANCE 4 UNITS SC (17:41)
[2025-06-24 20:22] LABS: Glucose - Point of Care 392 mg/dl (70-99)
[2025-06-24] MEDS: LIPITOR 40 MG PO (21:17)
[2025-06-24] MEDS: MELATONIN 5 MG PO (21:19)
[2025-06-24 23:32] LABS: Glucose - Point of Care 255 mg/dl (70-99)
[2025-06-24 23:45] VITALS: BP 163/76
[2025-06-25] MEDS: SYNTHROID 112 MCG PO (05:25)
[2025-06-25 06:00] VITALS: BMI 22.9
[2025-06-25 08:02] LABS: Glucose - Point of Care 207 mg/dl (70-99)
[2025-06-25 08:04] VITALS: BP 152/68
[2025-06-25] MEDS: NOVOLOG FLEXPEN-LOW RESISTANCE 2 UNITS SC (08:42)
[2025-06-25] MEDS: NOVOLOG FLEXPEN 5 UNITS SC ×3 (08:43→17:39)
[2025-06-25] MEDS: LANTUS 0.1 UNITS SC (08:45)
[2025-06-25] MEDS: RETACRIT 10000 UNITS IV (08:55)
[2025-06-25 09:07] LABS: Hematocrit 23.0 % (39.0-52.0); Hemoglobin 7.6 g/dL (13.0-18.0); Mean Corp Hgb Conc. 33.0 g/dL (33.0-37.0); Mean Corpuscular Volume 90.9 fL (80.0-94.0); Platelet Count 92 10^3/uL (130-400); Red Cell Dist. Width 15.4 % (11.5-14.5)
[2025-06-25 09:29] LABS: ALT (SGPT) < 10 U/L (0-50); AST (SGOT) 21 U/L (17-59); Albumin 3.2 g/dl (3.5-5.0); Alkaline Phosphatase 111 U/L (38-126); Blood Urea Nitrogen 75 mg/dl (9-20); Calcium 8.1 mg/dl (8.4-10.2); Carbon Dioxide 26 mmol/L (22-30); Chloride 98 mmol/L (98-107); Estimated Creatinine Clearance 17 ml/min; Glucose 173 mg/dl (70-99); Potassium 4.7 mmol/L (3.5-5.1); Sodium 129 mmol/L (135-145); Total Protein 5.8 g/dl (6.3-8.2); eGFR 15.06
--- NOTE | 2025-06-25 10:29 | W.PN.NEPH.HD ---
Assessment
-
Patient seen on dialysis
Systolic blood pressure 145 at current [place]
HD via PermCath
Next dialysis will be Thursday
Progress Note - Hemodialysis
-
Date of Service: June 25, 2025
Duration: 30 minutes and 3 hours
Potassium Bath: 2
Calcium Bath: 2.5
Opti-Dialyzer: 160
Ultrafiltration: Other (2.5 to 3 kg)
Blood Flow: 400
Dialysate Flow: 600
Heparin: None
EPO: 10,000
--- NOTE | 2025-06-25 11:21 | W.PN.HOSP.TC ---
Today's Communication/Plan
-
Hemodialysis
Wean O2
Thoracentesis tentatively tomorrow
Assessment / Plan
Assessment / Plan
#Acute hypoxemic respiratory failure
#Acute on Chronic HFrEF and HFpEF
#Large transudative left pleural effusion
-History of HFrEF with LVEF 35% from ischemic disease; echo recently with LVEF 53%
-Home GDMT includes carvedilol, SGLT2i, aspirin, high intensity statin; PO torsemide for volume status
-Presented with hypoxemia necessitating 4 L O2; CXR showed pulmonary congestion and large left pleural effusion
-Started on IV Lasix in place of torsemide, 40 mg twice daily, without improvement in O2 or renal function
-Nephrology started dialysis for ultrafiltration, continue at nephrology's discretion
-SpO2 goal >90%, wean appropriately
� With continued hypoxia despite aggressive dialysis, CT chest with angio ordered - no PE - pleural effusions; Can consult IR on Thursday for Thoracentesis; no clinical evidence of pneumonia/infection at this time
#JAMAR on CKD stage V
-Degree of cardiorenal physiology; creatinine baseline has been near 4.0 during recent hospital stay
-Complicated by anemia of chronic kidney disease; no signs of BMD or acidemia chronically
-Was started on IV Lasix in place of home torsemide due to decompensated heart failure as above
-Monitor BMP and UOP very closely on diuretics, monitor for azotemic symptom
-Started on hemodialysis;, continue at nephrology's discretion
-Avoid nephrotoxins
#Acute on chronic anemia of CKD
-Likely worsening anemia due to decreased EPO in the context of JAMAR
-Received erythropoietin stimulating agent with nephrology
-Continue to trend CBC and monitor for bleeding
-Hemoglobin this morning 6.8, receiving first HD session
-Nephrology to give BUD today
-Repeat CBC after HD, transfuse if Hb <7
#IDDM 2 with hyperglycemia
-Recently with DKA/HHS, status post aggressive IV fluids and insulin protocol with transition back to SQ regimen
-Current regimen Lantus 15 units daily with NovoLog 6 units at lunch and dinner, NovoLog 8 units with breakfast
-Was briefly trialed on slightly higher doses of Lantus and aspart though became hypoglycemic
-Continue current insulin regimen, BG goal 140-180, avoid hypoglycemia
#Thrombocytopenia
-f/u HIT panel�negative
� Resume HSQ
#Chronic hyponatremia
-Mild, clinically insignificant
-Stable with fluid restriction
-Trend BMP
#Primary hypertension
-Home regimen includes carvedilol twice daily, hydralazine BID, and isosorbide mononitrate
-Was started on Procardia while hospitalized here on 06/02
-Continue to monitor blood pressure and titrate as needed
#Hypothyroidism
-Home regimen includes levothyroxine
-Biochemically and clinically euthyroid
#CAD s/p PCI
#Dyslipidemia
-Home regimen includes beta-tiffany, high intensity statin, aspirin
-LDL goal <70 for secondary prevention
-No signs of ACS
Diet: Carbohydrate controlled, 2000-calorie
Thromboprophylaxis: SQ heparin
CODE STATUS: Full code
Disposition: SNF versus home therapy
Anticipated Discharge: 24 - 48 hours
Subjective/Interval History
-
Date of Service: June 25, 2025
No acute overnight, receiving HD today
Objective Data
-
Labs:
Laboratory Results
06/25/25
08:45
WBC 5.4
Hgb 7.6 L
Hct 23.0 L
Plt Count 92 L D
Sodium 129 L
Potassium 4.7
Chloride 98
Carbon Dioxide 26
BUN 75 H
Creatinine 4.3 H*
Glucose 173 H
Calcium 8.1 L
Total Bilirubin 0.5
AST 21
ALT < 10
Alkaline Phosphatase 111
Vital Signs:
Vital Signs
Temp Pulse Resp BP Pulse Ox
98 F 60 21 152/68 93
06/25/25 08:04 06/25/25 08:04 06/25/25 08:04 06/25/25 08:04 06/25/25 08:18
I&O
06/24/25 06/25/25 06/26/25
06:59 06:59 06:59
Intake Total 120 / 120 920 / 920
Balance 120 / 120 920 / 920
Review of Systems
-
History Source: Patient
All other systems: Not reviewed unless documented
Physical Exam
-
General: Well Developed, No Apparent Distress and Appears Chronically Ill
HEENT: Normocephalic, Atraumatic, Moist Mucous Membranes and Anicteric
Respiratory: Non Labored Respirations and Decreased Breath Sounds (Bilateral bases); Negative Accessory Resp Muscle Use
Cardiac: Regular Rhythm and S1/S2; Negative Murmur, Rub, JVD or Gallop
GI: Soft, Nontender, Nondistended and Normal Bowel Sounds
Musculoskeletal: No Clubbing, No Cyanosis and Other (1+ edema)
Skin: Warm and Dry; Negative Rash
Neuro: AO x 3, Nonfocal/Grossly Intact and Central Nerve's Intact
Psych: Calm
Data Reviewed
-
Diagnostic Radiology: Report Reviewed by me
CT Scan: Report Reviewed by me
Ultrasound: Report Reviewed by me
Labs: Labs Reviewed by me
[2025-06-25 12:04] LABS: Glucose - Point of Care 183 mg/dl (70-99)
[2025-06-25] MEDS: HEPARIN 3900 UNITS INTRACATH (12:08)
[2025-06-25] MEDS: LASIX 40 MG IV ×2 (12:20→17:40)
[2025-06-25] MEDS: ASPIR LOW (ENTERIC COATED) 81 MG PO (12:21)
[2025-06-25] MEDS: PROCARDIA XL (EXTENDED RELEASE) 30 MG PO ×2 (12:22→20:10)
[2025-06-25] MEDS: IMDUR (EXTENDED RELEASE) 30 MG PO (12:22)
[2025-06-25] MEDS: COREG 6.25 MG PO ×2 (12:22→20:11)
[2025-06-25] MEDS: NOVOLOG FLEXPEN-LOW RESISTANCE 1 UNITS SC ×2 (13:37→17:39)
[2025-06-25 15:38] LABS: Glucose - Point of Care 194 mg/dl (70-99)
[2025-06-25 16:06] VITALS: BP 140/96
[2025-06-25] MEDS: APRESOLINE 75 MG PO (17:40)
[2025-06-25] MEDS: FLUSH (NSS) 2 FLUSH IV (17:42)
[2025-06-25] MEDS: HEPARIN 5000 UNITS SC (20:07)
[2025-06-25] MEDS: LIPITOR 40 MG PO (21:03)
[2025-06-25] MEDS: MELATONIN 5 MG PO (21:05)
[2025-06-25 21:53] LABS: Glucose - Point of Care 114 mg/dl (70-99)
[2025-06-25 23:10] VITALS: BP 129/58
[2025-06-26] MEDS: SYNTHROID 112 MCG PO (05:14)
[2025-06-26 06:00] VITALS: BMI 22.0
[2025-06-26 06:53] LABS: Hematocrit 22.8 % (39.0-52.0); Hemoglobin 7.6 g/dL (13.0-18.0); Mean Corp Hgb Conc. 33.3 g/dL (33.0-37.0); Mean Corpuscular Volume 92.7 fL (80.0-94.0); Platelet Count 70 10^3/uL (130-400); Red Cell Dist. Width 15.4 % (11.5-14.5)
[2025-06-26 07:11] LABS: ALT (SGPT) < 10 U/L (0-50); AST (SGOT) 21 U/L (17-59); Albumin 3.1 g/dl (3.5-5.0); Alkaline Phosphatase 100 U/L (38-126); Blood Urea Nitrogen 47 mg/dl (9-20); Calcium 7.9 mg/dl (8.4-10.2); Carbon Dioxide 27 mmol/L (22-30); Chloride 96 mmol/L (98-107); Estimated Creatinine Clearance 22 ml/min; Glucose 139 mg/dl (70-99); Potassium 4.6 mmol/L (3.5-5.1); Sodium 131 mmol/L (135-145); Total Protein 5.7 g/dl (6.3-8.2); eGFR 21.47
[2025-06-26 07:22] VITALS: BP 160/67
[2025-06-26] MEDS: IMDUR (EXTENDED RELEASE) 30 MG PO (07:41)
[2025-06-26] MEDS: COREG 6.25 MG PO ×2 (07:41→19:37)
[2025-06-26] MEDS: ASPIR LOW (ENTERIC COATED) 81 MG PO (07:41)
[2025-06-26] MEDS: PROCARDIA XL (EXTENDED RELEASE) 30 MG PO ×2 (07:41→19:36)
[2025-06-26] MEDS: LASIX 40 MG IV ×2 (07:42→17:11)
[2025-06-26] MEDS: HEPARIN 5000 UNITS SC ×2 (07:42→19:32)
[2025-06-26 07:43] LABS: Glucose - Point of Care 168 mg/dl (70-99)
[2025-06-26] MEDS: NOVOLOG FLEXPEN-LOW RESISTANCE 1 UNITS SC (08:04)
[2025-06-26] MEDS: LANTUS 0.1 UNITS SC (08:04)
[2025-06-26] MEDS: NOVOLOG FLEXPEN 5 UNITS SC ×3 (08:05→17:20)
--- NOTE | 2025-06-26 10:14 | W.PN.HOSP.TC ---
Today's Communication/Plan
-
see plan
Assessment / Plan
Assessment / Plan
Gen: NAD, Awake and alert, appears chronically ill
Eyes: EOMI, PERRLA, no scleral icterus.
Neck: supple.
CV: RRR, +S1/S2, no m/r/g.
Resp: Decreased breath sounds in the left hemithorax
Abd: +BS, soft, NT, ND
Skin: No rashes.
Neuro: CN 2-12 intact, non-focal.
Psych: Normal mood and affect.
CTA chest 06/23: No findings to confirm central pulmonary embolism. Moderate bilateral lower lobe consolidations and moderate bilateral pleural effusions. Widespread bilateral groundglass opacification, right lung greater than left, nonspecific,
possibly related to acute pulmonary edema/CHF. Cardiomegaly.
Acute hypoxemic respiratory failure due to acute on Chronic HFrEF:
-h/o Chronic HFrEF with LVEF 35% from ischemic disease; echo recently with LVEF 53%
-presented with hypoxemia necessitating 4L O2. CXR showed pulmonary congestion and large left pleural effusion.
-s/p L thoracentesis for 1250cc transudative fluid on 06/15/25
-Started on IV Lasix in place of torsemide, 40 mg twice daily, without improvement hypoxia or renal function
-Nephrology started dialysis for ultrafiltration, cont HD as per renal
-GDMT: Coreg, further GDMT limited by JAMAR/CKDV
-cont Imdur/Hydralazine/statin/ASA
-remains on 4L NC O2
-will discuss utility of repeat L thoracentesis with renal
JAMAR on CKDV:
-Degree of cardiorenal physiology; creatinine baseline has been near 4.0 during recent hospital stay
-Complicated by anemia of chronic kidney disease; no signs of BMD or acidemia chronically
-Was started on IV Lasix in place of home torsemide due to decompensated heart failure as above
-now on HD as per renal
Acute on chronic anemia of CKDV:
-also pancytopenia
-note, HIT panel NEG
-Likely worsening anemia due to decreased EPO due to JAMAR
-Received erythropoietin stimulating agent
DM2 with hyperglycemia
-Recently with DKA/HHS, status post aggressive IV fluids and insulin protocol with transition back to SQ regimen
-cont Lantus/premeal Novolog/SSI/accuchecks
Chronic hyponatremia, mild
Essential HTN: Cont Coreg/Hydralazine/Imdur/Procardia XL
Hypothyroidism: cont Levoxyl
CAD s/p PCI: cont BB/statin/ASA
HLD: cont statin
FULL/heparin
Total time spent on today's encounter was 50 minutes which included time spent in counseling the patient/family regarding diagnosis and treatment plan as listed above, goals of care, and symptom management. Case was discussed with nursing staff,
specialists, and care coordinators/case management. All labs and imaging personally reviewed by me. Remainder the time spent in detailed review of previous records, lab data, imaging, and other medical provider documentation.
Anticipated Discharge: 24 - 48 hours
Subjective/Interval History
-
Date of Service: June 26, 2025
No acute complaints. Denies SOB.
Objective Data
-
Labs:
Laboratory Results
06/26/25
06:19
WBC 4.1 L
Hgb 7.6 L
Hct 22.8 L
Plt Count 70 L D
Sodium 131 L
Potassium 4.6
Chloride 96 L
Carbon Dioxide 27
BUN 47 H
Creatinine 3.2 H
Glucose 139 H
Calcium 7.9 L
Total Bilirubin 0.5
AST 21
ALT < 10
Alkaline Phosphatase 100
Vital Signs:
Vital Signs
Temp Pulse Resp BP Pulse Ox
97.4 F 69 22 160/67 96
06/26/25 07:22 06/26/25 07:22 06/26/25 07:22 06/26/25 07:22 06/26/25 07:22
I&O
06/25/25 06/26/25 06/27/25
06:59 06:59 06:59
Intake Total 920 / 920 780 / 780
Output Total 0 / 0
Balance 920 / 920 780 / 780
[2025-06-26 11:53] LABS: Glucose - Point of Care 322 mg/dl (70-99)
[2025-06-26] MEDS: NOVOLOG FLEXPEN-LOW RESISTANCE 4 UNITS SC (12:37)
[2025-06-26 12:45] LABS: LDH 159 U/L (120-246)
--- NOTE | 2025-06-26 14:05 | CM ---
Patient seen at bedside
thoracentesis today, HD Tues
continues on 4L oxygen 94%
referral in [facility] for [facility]
updated Stefany at [facility]
outpatient HD set up with [facility] (post rehab) -- 4pm, updated [facility] ([phone])
will need ins auth, updated therapy notes
PLAN: [facility] when stable
--- NOTE | 2025-06-26 14:47 | W.PN.NEPH.PH ---
Today's Communication / Plan
-
HD tomorrow
Assessment/Plan
-
Assessment
JAMAR
CKD 4
mild hyperkalemia
Acute on chr anemia
CAD s/p PCI
Diabetes mellitus type 2
Hypertension
large left pleural effusion
Acute on chronic Heart failure reduced ejection fraction 35%
FTT
Hyponatremia
Metabolic acidosis
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
Hypothyroidism
Plan
HD tomorrow
will UF extra when able
for thoracentesis
-
-
Date of Service: June 26, 2025
CC / HPI / ROS
-
Chief Complaint:
Shortness of breath
History of Present Illness:
Progressive CKD requiring implementation of dialysis
Hemodynamically stable
Currently on Thursday dialysis schedule
Review of Systems:
Remains short of breath with exertion
Remains on O2 4L
No chest pain
Labs
-
Labs:
WBC 4.1 10^3/uL (4.8-10.8) L 06/26/25 06:19
RBC 2.46 10^6/uL (4.70-6.10) L 06/26/25 06:19
Hgb 7.6 g/dL (13.0-18.0) L 06/26/25 06:19
Hct 22.8 % (39.0-52.0) L 06/26/25 06:19
Plt Count 70 10^3/uL (130-400) L D 06/26/25 06:19
Sodium 131 mmol/L (135-145) L 06/26/25 06:19
Potassium 4.6 mmol/L (3.5-5.1) 06/26/25 06:19
Chloride 96 mmol/L (98-107) L 06/26/25 06:19
Carbon Dioxide 27 mmol/L (22-30) 06/26/25 06:19
BUN 47 mg/dl (9-20) H 06/26/25 06:19
Creatinine 3.2 mg/dL (0.7-1.3) H 06/26/25 06:19
eGFR 21.47 06/26/25 06:19
Glucose 139 mg/dl (70-99) H 06/26/25 06:19
Calcium 7.9 mg/dl (8.4-10.2) L 06/26/25 06:19
Kut-[id number]-Iafxocdnpqx Pept 14196 pg/ml 06/14/25 18:16
Albumin 3.1 g/dl (3.5-5.0) L 06/26/25 06:19
Physical Exam
-
Vital Signs:
Vital Signs
Temp Pulse Resp BP Pulse Ox
97.4 F 69 22 160/67 94
06/26/25 07:22 06/26/25 07:22 06/26/25 07:22 06/26/25 07:22 06/26/25 10:08
Cardiovascular:: Regular rate and rhythm
Respiratory:: Bilateral: Coarse
Lung Excursion:: Normal
Abdomen:: Nontender and Soft
Bowel Sounds:: Normal
Extremity Edema:: +2: Bilateral:
--- NOTE | 2025-06-26 15:15 | PTCARENOTE ---
Patient departed from unit to go to IR for L thoracentesis at this time.
[2025-06-26 15:20] VITALS: BP 147/74; BP_SYST 60
[2025-06-26 15:50] VITALS: BP 150/80; BP_SYST 72
[2025-06-26 16:18] VITALS: BP 168/83
--- NOTE | 2025-06-26 16:20 | PTCARENOTE ---
Patient returned back to unit around 1600. Able to ambulate from stretcher to bed, 4 L O2 remains intact. Bandaid noted to L upper back covering puncture site. Pt reports feeling good, all needs met at this time. Plan of care ongoing.
[2025-06-26 16:26] LABS: Body Fluid Second Tech RP
[2025-06-26 16:50] LABS: Glucose - Point of Care 295 mg/dl (70-99)
[2025-06-26] MEDS: APRESOLINE 75 MG PO (17:12)
[2025-06-26] MEDS: NOVOLOG FLEXPEN-LOW RESISTANCE 3 UNITS SC (17:20)
[2025-06-26] MEDS: LIPITOR 40 MG PO (21:23)
[2025-06-26] MEDS: MELATONIN 5 MG PO (21:39)
[2025-06-26 22:00] VITALS: BP 182/83
[2025-06-26 22:15] LABS: Glucose - Point of Care 274 mg/dl (70-99)
[2025-06-27] MEDS: SYNTHROID 112 MCG PO (05:30)
[2025-06-27 06:00] VITALS: BMI 22.3
[2025-06-27 07:06] VITALS: BP 151/60
[2025-06-27] MEDS: LANTUS 0.1 UNITS SC (07:43)
[2025-06-27 07:44] LABS: Glucose - Point of Care 316 mg/dl (70-99)
[2025-06-27] MEDS: HEPARIN 5000 UNITS SC ×2 (07:44→21:37)
[2025-06-27] MEDS: LASIX 40 MG IV ×2 (07:44→17:02)
[2025-06-27] MEDS: PROCARDIA XL (EXTENDED RELEASE) 30 MG PO ×2 (07:44→21:37)
[2025-06-27] MEDS: IMDUR (EXTENDED RELEASE) 30 MG PO (07:44)
[2025-06-27] MEDS: COREG 6.25 MG PO ×2 (07:44→21:44)
[2025-06-27] MEDS: ASPIR LOW (ENTERIC COATED) 81 MG PO (07:44)
[2025-06-27] MEDS: NOVOLOG FLEXPEN 5 UNITS SC ×3 (08:07→17:10)
[2025-06-27] MEDS: NOVOLOG FLEXPEN-LOW RESISTANCE 4 UNITS SC ×2 (08:07→17:10)
--- NOTE | 2025-06-27 08:33 | W.PN.HOSP.TC ---
Today's Communication/Plan
-
see plan
Assessment / Plan
Assessment / Plan
Gen: NAD, Awake and alert, appears chronically ill
Eyes: EOMI, PERRLA, no scleral icterus.
Neck: supple.
CV: remains RRR, +S1/S2, no m/r/g.
Resp: CTAB anteriorly
Abd: remains +BS, soft, NT, ND
Skin: No rashes.
Neuro: CN 2-12 intact, non-focal.
Psych: Normal mood and affect.
CTA chest 06/23: No findings to confirm central pulmonary embolism. Moderate bilateral lower lobe consolidations and moderate bilateral pleural effusions. Widespread bilateral groundglass opacification, right lung greater than left, nonspecific,
possibly related to acute pulmonary edema/CHF. Cardiomegaly.
Acute hypoxemic respiratory failure due to acute on Chronic HFrEF:
-h/o Chronic HFrEF with LVEF 35% from ischemic disease; echo recently with LVEF 53%
-presented with hypoxemia necessitating 4L O2. CXR showed pulmonary congestion and large left pleural effusion.
-s/p L thoracentesis for 1250cc transudative fluid on 06/15/25
-Started on IV Lasix in place of torsemide, 40 mg twice daily, without improvement hypoxia or renal function
-Nephrology started dialysis for ultrafiltration, cont HD as per renal
-GDMT: Coreg, further GDMT limited by JAMAR/CKDV
-cont Imdur/Hydralazine/statin/ASA
-remains on 4L NC O2
-s/p L thoracentesis for 950cc transudative fluid on 06/26
-c/s pulm, discussed with pulm
JAMAR on CKDV:
-Degree of cardiorenal physiology; creatinine baseline has been near 4.0 during recent hospital stay
-Complicated by anemia of chronic kidney disease; no signs of BMD or acidemia chronically
-Was on on IV Lasix in place of home torsemide due to decompensated heart failure as above
-now on HD as per renal
Acute on chronic anemia of CKDV:
-also pancytopenia
-note, HIT panel NEG
-Likely worsening anemia due to decreased EPO due to JAMAR
-Received erythropoietin stimulating agent
DM2 with hyperglycemia
-Recently with DKA/HHS, status post aggressive IV fluids and insulin protocol with transition back to SQ regimen
-cont Lantus/premeal Novolog/SSI/accuchecks
Chronic hyponatremia, mild
Essential HTN: Cont Coreg/Hydralazine/Imdur/Procardia XL
Hypothyroidism: cont Levoxyl
CAD s/p PCI: cont BB/statin/ASA
HLD: cont statin
FULL/heparin
Total time spent on today's encounter was 52 minutes which included time spent in counseling the patient/family regarding diagnosis and treatment plan as listed above, goals of care, and symptom management. Case was discussed with nursing staff,
specialists, and care coordinators/case management. All labs and imaging personally reviewed by me. Remainder the time spent in detailed review of previous records, lab data, imaging, and other medical provider documentation.
Anticipated Discharge: 24 - 48 hours
Subjective/Interval History
-
Date of Service: June 27, 2025
Currently denies CP/SOB.
Objective Data
-
Labs:
Laboratory Results
06/27/25
08:19
Hgb Pending
Hct Pending
Sodium Pending
Potassium Pending
Chloride Pending
Carbon Dioxide Pending
Vital Signs:
Vital Signs
Temp Pulse Resp BP Pulse Ox
97.7 F 64 16 151/60 96
06/27/25 07:06 06/27/25 07:06 06/27/25 07:06 06/27/25 07:06 06/27/25 07:06
I&O
06/26/25 06/27/25 06/28/25
06:59 06:59 06:59
Intake Total 780 / 780 380 / 380
Output Total 0 / 0
Balance 780 / 780 380 / 380
[2025-06-27 08:48] LABS: Hematocrit 21.7 % (39.0-52.0); Hemoglobin 7.2 g/dL (13.0-18.0)
[2025-06-27 09:02] LABS: Carbon Dioxide 24 mmol/L (22-30); Chloride 94 mmol/L (98-107); Potassium 4.5 mmol/L (3.5-5.1); Sodium 127 mmol/L (135-145)
[2025-06-27] MEDS: FLEXBUMIN 25% FOR HEMODIALYSIS 12.5 GRAMS IV ×2 (09:10→11:15)
[2025-06-27] MEDS: MANNITOL 25% 12.5 GRAMS IV ×2 (09:10→11:14)
[2025-06-27] MEDS: RETACRIT 10000 UNITS IV (09:12)
--- NOTE | 2025-06-27 09:34 | CON.PUL ---
Consultation
Consultation Request
Date/Time Consultation Requested: 06/27/2025
Date/Time Consultation Performed: 06/27/2025
Medical History
-
Chief Complaint: Shortness of breath
History of Present Illness:
Patient is a very pleasant 60-year-old gentleman with history of congestive heart failure, coronary artery disease and diabetes who recently was admitted in late May 2025 for nonketotic hyperosmolar state and heart failure exacerbation.
Patient was subsequently transferred to [facility] for ongoing rehabilitation. He was readmitted to the hospital on 06/14 due to hypoxia noticed at mass as well as increasing lower extremity edema. Chest x-ray also was pursued which showed a
left-sided pleural effusion. Patient had a thoracentesis performed on 06/15 and a 1250 cc of clear yellow pleural fluid was removed. Fluid studies analysis was suggestive of transudate. Hospital stay was complicated by worsening renal function
and eventually development of acute kidney injury underlying chronic kidney disease. Patient had an IR guided dialysis catheter placed on 06/16 and was started on renal replacement therapy. Patient had a CT chest performed on 06/23 which showed
again bilateral pleural effusion with larger on the left side. Patient had another thoracentesis performed on 06/26, 950 mL of transudative fluid was removed.
In view of recurrent pleural effusion, pulmonary consultation was requested for further input.
Past Medical History
Past Medical History: Reports Other ( HFrEF with EF 35%, CAD s/p PCI, IDDM, essential HTN, JESSENIA, medication non-compliance and DKA admission )
Past Surgical History: Reports None
Social History
Tobacco: Non-smoker
Alcohol: None
Drug: None
Family History
Family History: Not pertinent
Allergies / Home Medications
Allergies / Home Medications
Allergies
Allergy/AdvReac Type Severity Reaction Status Date / Time
No Known Allergies Allergy Verified 06/14/25 17:45
Home Medications
�Medication �Instructions �Recorded �Confirmed �Last Taken �Type
atorvastatin 40 mg tablet 40 mg PO HS High Cholesterol 02/05/22 06/14/25 04/18/24 21:00 History
levothyroxine 112 mcg tablet 112 mcg PO DAILY Thyroid 11/01/23 06/14/25 04/18/24 07:00 History
(Synthroid)
omega-3 fatty acids 1,000 mg PO DAILY Supplement 04/15/24 06/14/25 04/18/24 08:00 History
aspirin 81 mg tablet,delayed 81 mg PO DAILY Blood Clot 11/17/24 06/14/25 Unknown History
release Prevention/Tx
insulin glargine 100 unit/mL (3 15 unit (0.15 mL) SC DAILY 11/20/24 06/14/25 04/19/24 05:45 Rx
mL) subcutaneous pen Diabetes #0 mL 16 units
carvedilol 6.25 mg tablet 6.25 mg PO BID #30 tabs 06/12/25 06/14/25 Unknown Rx
hydralazine 50 mg tablet 50 mg PO DAILY 30 days #30 tabs 06/12/25 06/14/25 Unknown Rx
hydralazine 50 mg tablet 75 mg (1.5 x 50 mg) PO QPM #30 tabs 06/12/25 06/14/25 Unknown Rx
insulin aspart U-100 100 unit/mL 6 unit (0.06 mL) SC 06/12/25 06/14/25 Unknown Rx
(3 mL) subcutaneous pen DAILY@1130,1630 #15 mL
insulin aspart U-100 100 unit/mL 8 unit (0.08 mL) SC DAILY@0730 #15 06/12/25 06/14/25 Unknown Rx
(3 mL) subcutaneous pen mL
isosorbide mononitrate 30 mg 30 mg PO DAILY 30 days #30 tabs 06/12/25 06/14/25 Unknown Rx
tablet,extended release 24 hr
nifedipine 30 mg tablet,extended 30 mg PO DAILY #30 tabs 06/12/25 06/14/25 Unknown Rx
release
insulin aspart U-100 100 unit/mL 1 sliding scale dose SC AC Diabetes 06/15/25 06/14/25 Unknown History
(3 mL) subcutaneous pen
torsemide 20 mg tablet 20 mg PO DAILY Fluid 06/15/25 06/14/25 Unknown History
Retention/Swelling
Review of Systems
-
Hematologic/Lymphatic: Other (All 14 systems reviewed and negative except as stated above in the history of present illness.)
Vitals / Labs / Diagnostic Testing
Vital Signs
Temp Pulse Resp BP Pulse Ox
97.7 F 64 16 151/60 96
06/27/25 07:06 06/27/25 07:06 06/27/25 07:06 06/27/25 07:06 06/27/25 07:06
Lab Data
06/27/25 08:19
06/27/25 08:19
Microbiology
06/26/25 15:41 Pleural Fluid Gram Stain - Preliminary
06/26/25 15:41 Pleural Fluid Fungal Culture - Preliminary
Culture in progress.
Positive cultures are reported as soon as detected.
Final report to follow in four to five weeks.
Diagnostic Testing:
Physical Exam
-
HEENT: Normocephalic
Cardiovascular: S1/S2 and Peripheral Edema (Trace lower extremity pedal edema.)
Respiratory: Clear and Non-Labored Respirations
GI: Soft and Non Distended
Neurology: Awake and Alert
Skin: Warm
General: Comfortable
Assessment
-
#1. Pleural effusions, recurrent.
- Recurrent transudative pleural effusion in the setting of underlying congestive heart failure as well as end-stage renal disease with volume overload
- Post-thoracentesis x-ray on 06/26 with full re-expansion of left lung, no suggestion of trapped lung or underlying pneumonia.
- Treatment at this point is to continue to optimize intravascular volume. Patient has been on dialysis for JAMAR with underlying CKD.
- In view of transudative etiology, would not recommend indwelling pleural catheter. Thoracentesis can be pursued on an as-needed basis.
- s/p Thoracentesis 06/26 (950 ml transudative), 06/15 (1250 ml transudative). Triglycerides < 30, LDH around 70's and Pleural fluid protein 2.0 with serum 5.7. Pleural fluid cultures negative. Cytology was not pursued.
- Presence of bilateral pleural effusions on recent CT chest as well as lower lobe compatible atelectasis again supports volume overload as primary etiology
#2. Acute hypoxic respiratory failure
- Primarily related to volume overload as well as pleural effusions.
- No pulmonary embolism noted on recent CT scan. Lower lobe opacities are more suggestive of compressive atelectasis rather than pneumonia.
- Patient is afebrile, has normal WBC count. No indication for antibiotics
- Wean O2 as tolerated
- Incentive spirometry
#3. Acute on chronic heart failure with recovered ejection fraction
-Continue volume control with hemodialysis
-Continue Lasix IV twice daily as ordered
#4. ?Left apical trace Pnemothorax
- F/u CXR 06/27 unremarkable. No Pneumothorax noted.
Other medical diagnoses:
-JAMAR with underlying chronic kidney disease, newly initiated on hemodialysis
-Anemia of renal disease
-Diabetes mellitus with recent admission for nonketotic hyperosmolar state
-Chronic hyponatremia
-Hypertension
-Hypothyroidism
Total time spent on this consultation/encounter __65__ minutes which includes review of history, physical exam, medications, laboratory data, personal review of imaging, extensive review of outpatient records, discussion with care team and
respiratory therapy.
Data:
CXR 06/27/2025: Faint linear density superimposed on the left lung apex felt to be artifactual in nature. Cannot entirely exclude small pneumothorax. Recommend follow-up surveillance.
Marked improvement in previous left pleural effusion with probable atelectasis at the left lung base.
Small right pleural effusion.
CT Chest 06/23/2025: No findings to confirm central pulmonary embolism.
Moderate bilateral lower lobe consolidations and moderate bilateral pleural effusions.
Widespread bilateral ground-glass opacification, right lung greater than left, nonspecific, possibly related to acute pulmonary edema/CHF.
Cardiomegaly
ECHO 05/2025: 1. Left ventricular ejection fraction is normal with an ejection fraction of 52 % by Aguilera's biplane method of discs.
2. Global strain -20.2%.
3. Trivial pericardial effusion. Pleural effusion present.
4. Moderate concentric left ventricular hypertrophy.
[2025-06-27 11:27] LABS: Glucose - Point of Care 230 mg/dl (70-99)
--- NOTE | 2025-06-27 11:43 | W.PN.NEPH.HD ---
Assessment
-
Pt seen on HD. no complaints. VSS, access ok
Progress Note - Hemodialysis
-
Date of Service: June 27, 2025
Duration: 30 minutes and 3 hours
Potassium Bath: 3
Calcium Bath: 2.5
Opti-Dialyzer: 160
Ultrafiltration: Other (3.5)
Blood Flow: 400
Dialysate Flow: 600
Heparin: 0
EPO: 26659 units
[2025-06-27] MEDS: HEPARIN 3900 UNITS INTRACATH (11:50)
[2025-06-27] MEDS: NOVOLOG FLEXPEN-LOW RESISTANCE 2 UNITS SC (13:06)
[2025-06-27 15:09] VITALS: BP 159/73
--- NOTE | 2025-06-27 16:08 | CM ---
chart reviewed
thoracentesis yesterday
[facility]
PT/OT will see tomorrow
updated Stefany at [facility]
outpatient HD set up with [facility] (post rehab) M-- 4pm
will need ins auth, once updated therapy notes
PLAN: PLAN: [facility] when stable
[2025-06-27 16:57] LABS: Glucose - Point of Care 338 mg/dl (70-99)
[2025-06-27] MEDS: APRESOLINE 75 MG PO (17:06)
[2025-06-27 21:18] LABS: Glucose - Point of Care 286 mg/dl (70-99)
[2025-06-27] MEDS: LIPITOR 40 MG PO (21:44)
[2025-06-27] MEDS: MELATONIN 5 MG PO (22:27)
[2025-06-27 23:00] VITALS: BP 187/89
[2025-06-28 06:00] VITALS: BMI 20.9
[2025-06-28] MEDS: SYNTHROID 112 MCG PO (06:08)
[2025-06-28 07:48] VITALS: BP 157/68
[2025-06-28 08:02] LABS: Glucose - Point of Care 275 mg/dl (70-99)
[2025-06-28] MEDS: LANTUS 0.1 UNITS SC ×2 (08:11→10:16)
[2025-06-28] MEDS: NOVOLOG FLEXPEN 5 UNITS SC ×3 (08:12→17:25)
[2025-06-28] MEDS: NOVOLOG FLEXPEN-LOW RESISTANCE 3 UNITS SC (08:13)
[2025-06-28] MEDS: LASIX 40 MG IV ×2 (08:14→17:24)
[2025-06-28] MEDS: IMDUR (EXTENDED RELEASE) 30 MG PO (08:15)
[2025-06-28] MEDS: COREG 6.25 MG PO ×2 (08:15→20:53)
[2025-06-28] MEDS: HEPARIN 5000 UNITS SC ×2 (08:15→20:47)
[2025-06-28] MEDS: ASPIR LOW (ENTERIC COATED) 81 MG PO (08:15)
[2025-06-28] MEDS: PROCARDIA XL (EXTENDED RELEASE) 30 MG PO ×2 (08:15→20:48)
--- NOTE | 2025-06-28 09:24 | W.PN.HOSP.TC ---
Addendum entered and electronically signed by Craig Woo MD 06/28/25 14:01:
Acute hypoxemic respiratory failure due to acute on Chronic HFpEF (h/o HFrEF now with recovered EF)
Original Note:
Today's Communication/Plan
-
d/c
Assessment / Plan
Assessment / Plan
Gen: NAD, Awake and alert, appears chronically ill
Eyes: EOMI, PERRLA, no scleral icterus.
Neck: supple.
CV: continues to remain RRR, +S1/S2, no m/r/g.
Resp: remains CTAB anteriorly
Abd: continues to remain +BS, soft, NT, ND
Skin: No rashes.
Neuro: CN 2-12 intact, non-focal.
Psych: Normal mood and affect.
CTA chest 06/23: No findings to confirm central pulmonary embolism. Moderate bilateral lower lobe consolidations and moderate bilateral pleural effusions. Widespread bilateral groundglass opacification, right lung greater than left, nonspecific,
possibly related to acute pulmonary edema/CHF. Cardiomegaly.
Acute hypoxemic respiratory failure due to acute on Chronic HFrEF:
-h/o Chronic HFrEF with LVEF 35% from ischemic disease; echo recently with LVEF 53%
-presented with hypoxemia necessitating 4L O2. CXR showed pulmonary congestion and large left pleural effusion.
-s/p L thoracentesis for 1250cc transudative fluid on 06/15/25
-Started on IV Lasix in place of torsemide, 40 mg twice daily, without improvement hypoxia or renal function
-Nephrology started dialysis for ultrafiltration, cont HD as per renal
-GDMT: Coreg, further GDMT limited by JAMAR/CKDV
-cont Imdur/Hydralazine/statin/ASA
-was on 4L NC O2, now weaned to 2L NC O2
-s/p L thoracentesis for 950cc transudative fluid on 06/26
-pulm saw in c/s
JAMAR on CKDV:
-Degree of cardiorenal physiology; creatinine baseline has been near 4.0 during recent hospital stay
-Complicated by anemia of chronic kidney disease; no signs of BMD or acidemia chronically
-Was on on IV Lasix in place of home torsemide due to decompensated heart failure as above
-now on HD as per renal
Acute on chronic anemia of CKDV:
-also pancytopenia
-note, HIT panel NEG
-Likely worsening anemia due to decreased EPO due to JAMAR
-Received erythropoietin stimulating agent
DM2 with hyperglycemia
-Recently with DKA/HHS, status post aggressive IV fluids and insulin protocol with transition back to SQ regimen
-increase Lantus to 20U, cont current Novolog dosing, SSI/accuchecks
Chronic hyponatremia, mild
Essential HTN: Cont Coreg/Hydralazine/Imdur/Procardia XL
Hypothyroidism: cont Levoxyl
CAD s/p PCI: cont BB/statin/ASA
HLD: cont statin
FULL/heparin
Total time spent on today's encounter was 50 minutes which included time spent in counseling the patient/family regarding diagnosis and treatment plan as listed above, goals of care, and symptom management. Case was discussed with nursing staff,
specialists, and care coordinators/case management. All labs and imaging personally reviewed by me. Remainder the time spent in detailed review of previous records, lab data, imaging, and other medical provider documentation.
Medically cleared for d/c, case management aware.
Anticipated Discharge: Today
Subjective/Interval History
-
Date of Service: June 28, 2025
No new complaints.
Objective Data
-
Vital Signs:
Vital Signs
Temp Pulse Resp BP Pulse Ox
98.1 F 70 16 157/68 94
06/28/25 07:48 06/28/25 07:48 06/28/25 07:48 06/28/25 07:48 06/28/25 07:48
I&O
10/06/28/25 06/29/25
06:59 06:59 06:59
Intake Total 380 / 380 660 / 660
Balance 380 / 380 660 / 660
[2025-06-28 10:10] VITALS: BP 102/46; BP 112/60; PULSE 55; O2SAT 95
[2025-06-28 10:53] VITALS: BP 102/46; BP 112/60; PULSE 56
[2025-06-28 11:15] LABS: Glucose - Point of Care 313 mg/dl (70-99)
[2025-06-28 11:41] LABS: Hemoglobin 8.3 g/dL (13.0-18.0)
--- NOTE | 2025-06-28 12:01 | CM ---
Addendum entered by Alysa Cruz 06/28/25 16:41:
CM called [phone] [employer] and spoke with [facility]
PENDING REFERENCE # [id number]
CM faxed clinicals to [phone]
PLAN: [facility] acute Re[facility], once auth obtained
Original Note:
patient seen at bedside
updated Stefany at [place] - per hospitalist stable for discharge
outpatient HD set up with [facility] (post rehab) M-W- 4pm
will need ins auth for [facility] N[facility] [id number]
DR. BONNY HAWK NPI #: [id number]
CM will start initiation of auth with [employer]
PLAN: [facility] acute Rehab, once auth obtained
--- NOTE | 2025-06-28 12:48 | W.PN.PUL3 ---
Today's Communication / Plan
-
- Continue to wean O2 as tolerated
- Anticipate oxygen requirement will continue to improve as patient approaches euvolemia with ongoing hemodialysis and diuresis
- Pulmonary service will be available as needed. Will sign off
- Discharge planning
Assessment
-
Patient is a very pleasant 60-year-old gentleman with history of congestive heart failure, coronary artery disease and diabetes who recently was admitted in late May 2025 for nonketotic hyperosmolar state and heart failure exacerbation.
Patient was subsequently transferred to [facility] for ongoing rehabilitation. He was readmitted to the hospital on 06/14 due to hypoxia noticed at mass as well as increasing lower extremity edema. Chest x-ray also was pursued which showed a
left-sided pleural effusion. Patient had a thoracentesis performed on 06/15 and a 1250 cc of clear yellow pleural fluid was removed. Fluid studies analysis was suggestive of transudate. Hospital stay was complicated by worsening renal function
and eventually development of acute kidney injury underlying chronic kidney disease. Patient had an IR guided dialysis catheter placed on 06/16 and was started on renal replacement therapy. Patient had a CT chest performed on 06/23 which showed
again bilateral pleural effusion with larger on the left side. Patient had another thoracentesis performed on 06/26, 950 mL of transudative fluid was removed.
In view of recurrent pleural effusion, pulmonary consultation was requested for further input.
#1. Pleural effusions, recurrent.
- Recurrent transudative pleural effusion in the setting of underlying congestive heart failure as well as end-stage renal disease with volume overload
- Post-thoracentesis x-ray on 06/26 with full re-expansion of left lung, no suggestion of trapped lung or underlying pneumonia.
- Treatment at this point is to continue to optimize intravascular volume. Patient has been on dialysis for JAMAR with underlying CKD.
- In view of transudative etiology, would not recommend indwelling pleural catheter. Thoracentesis can be pursued on an as-needed basis.
- s/p Thoracentesis 06/26 (950 ml transudative), 06/15 (1250 ml transudative). Triglycerides < 30, LDH around 70's and Pleural fluid protein 2.0 with serum 5.7. Pleural fluid cultures negative. Cytology negative for any malignancy.
- Presence of bilateral pleural effusions on recent CT chest as well as lower lobe compatible atelectasis again supports volume overload as primary etiology
- Patient is afebrile, WBC count is normal, suspect small area of right lower lobe compressive atelectasis due to trace effusion rather than pneumonia. Continue to monitor off antibiotics
#2. Acute hypoxic respiratory failure
- Primarily related to volume overload as well as pleural effusions.
- No pulmonary embolism noted on recent CT scan. Lower lobe opacities are more suggestive of compressive atelectasis rather than pneumonia.
- Patient is afebrile, has normal WBC count. No indication for antibiotics
- Wean O2 as tolerated, down to 2 L this morning
- Incentive spirometry
#3. Acute on chronic heart failure with recovered ejection fraction
-Continue volume control with hemodialysis
-Continue Lasix IV twice daily as ordered
#4. ?Left apical trace Pneumothorax
- F/u CXR 06/27 unremarkable. No Pneumothorax noted.
Other medical diagnoses:
-JAMAR with underlying chronic kidney disease, newly initiated on hemodialysis
-Anemia of renal disease
-Diabetes mellitus with recent admission for nonketotic hyperosmolar state
-Chronic hyponatremia
-Hypertension
-Hypothyroidism
Patient can be discharged per primary team. Anticipate oxygen requirement will continue to decrease as volume status continues to improve with hemodialysis and diuresis.
Total time spent on this consultation/encounter __35__ minutes which includes review of history, physical exam, medications, laboratory data, personal review of imaging, extensive review of outpatient records, discussion with care team and
respiratory therapy.
Data:
CXR 06/27/2025: Faint linear density superimposed on the left lung apex felt to be artifactual in nature. Cannot entirely exclude small pneumothorax. Recommend follow-up surveillance.
Marked improvement in previous left pleural effusion with probable atelectasis at the left lung base.
Small right pleural effusion.
CT Chest 06/23/2025: No findings to confirm central pulmonary embolism.
Moderate bilateral lower lobe consolidations and moderate bilateral pleural effusions.
Widespread bilateral ground-glass opacification, right lung greater than left, nonspecific, possibly related to acute pulmonary edema/CHF.
Cardiomegaly
ECHO 05/2025: 1. Left ventricular ejection fraction is normal with an ejection fraction of 52 % by Aguilera's biplane method of discs.
2. Global strain -20.2%.
3. Trivial pericardial effusion. Pleural effusion present.
4. Moderate concentric left ventricular hypertrophy.
Subjective Data
-
Date of Service:
Date of Service: June 28, 2025
Subjective:
Patient comfortably lying in bed in no acute distress.
Review of Systems
Genitourinary: Other (All 14 systems reviewed and negative except as stated above in the history of present illness.)
Objective Data
Data Reviewed
Vital Signs / I&O / Oxygen:
Vital Signs
Temp Pulse Resp BP Pulse Ox
98.1 F 70 16 157/68 94
06/28/25 07:48 06/28/25 07:48 06/28/25 07:48 06/28/25 07:48 06/28/25 07:48
Intake and Output
06/27/25 06/28/25 06/29/25
06:59 06:59 06:59
Intake Total 380 / 380 660 / 660
Balance 380 / 380 660 / 660
SaO2 94
Nasal Cannula flow liters per 2
minute
Physical Exam
General: Comfortable
HEENT: Normocephalic
Cardiovascular: S1-S2
Respiratory: Crackles (Few inspiratory crackles in the right lower lobe area) and Non-Labored Respirations
GI: Soft and Non Distended
Neurology: Awake and Alert
Skin: Warm
Labs/Micro/Reports
Lab Data
06/28/25 11:31
06/27/25 08:19
Microbiology
06/26/25 15:41 Pleural Fluid Fungal Smear - Final
No yeast or fungal elements seen.
06/26/25 15:41 Pleural Fluid Fungal Culture - Preliminary
Culture in progress.
Positive cultures are reported as soon as detected.
Final report to follow in four to five weeks.
06/26/25 15:41 Pleural Fluid Body Fluid Culture - Preliminary
No Growth After 48 Hours
06/26/25 15:41 Pleural Fluid Gram Stain - Preliminary
[2025-06-28] MEDS: NOVOLOG FLEXPEN-LOW RESISTANCE 4 UNITS SC (12:52)
[2025-06-28 15:13] VITALS: BP 140/66
[2025-06-28 16:45] LABS: Glucose - Point of Care 204 mg/dl (70-99)
--- NOTE | 2025-06-28 16:46 | W.PN.NEPH.PH ---
Today's Communication / Plan
-
HD tomorrow
d/c plan
Assessment/Plan
-
Assessment
JAMAR
CKD 4
mild hyperkalemia
Acute on chr anemia
CAD s/p PCI
Diabetes mellitus type 2
Hypertension
large left pleural effusion
Acute on chronic Heart failure reduced ejection fraction 35%
FTT
Hyponatremia
Metabolic acidosis
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
Hypothyroidism
Plan
HD tomorrow, try uF as much possible
last thoracentesis on 06/26
Bps stable, expect to improve with UF
noted d/c to [facility] once approved
also set up at [facility] HD unit post rehab
d/w pt and CM
-
-
Date of Service: June 28, 2025
CC / HPI / ROS
-
Chief Complaint:
Shortness of breath
History of Present Illness:
Progressive CKD requiring implementation of dialysis
Hemodynamically stable
Currently on Thursday dialysis schedule
wt decreasing
hb low 8.3
Review of Systems:
no n/v
Remains on O2 2L
No chest pain
Labs
-
Labs:
WBC 4.1 10^3/uL (4.8-10.8) L 06/26/25 06:19
RBC 2.46 10^6/uL (4.70-6.10) L 06/26/25 06:19
Hgb 8.3 g/dL (13.0-18.0) L 06/28/25 11:31
Hct 21.7 % (39.0-52.0) L 06/27/25 08:19
Plt Count 70 10^3/uL (130-400) L D 06/26/25 06:19
Sodium 127 mmol/L (135-145) L 06/27/25 08:19
Potassium 4.5 mmol/L (3.5-5.1) 06/27/25 08:19
Chloride 94 mmol/L (98-107) L 06/27/25 08:19
Carbon Dioxide 24 mmol/L (22-30) 06/27/25 08:19
BUN 47 mg/dl (9-20) H 06/26/25 06:19
Creatinine 3.2 mg/dL (0.7-1.3) H 06/26/25 06:19
eGFR 21.47 06/26/25 06:19
Glucose 139 mg/dl (70-99) H 06/26/25 06:19
Calcium 7.9 mg/dl (8.4-10.2) L 06/26/25 06:19
Vos-U-Bnbxeenxaeg Pept 20570 pg/ml 06/14/25 18:16
Albumin 3.1 g/dl (3.5-5.0) L 06/26/25 06:19
Physical Exam
-
Vital Signs:
Vital Signs
Temp Pulse Resp BP Pulse Ox
97.4 F 57 14 140/66 95
06/28/25 15:13 06/28/25 15:13 06/28/25 15:13 06/28/25 15:13 06/28/25 15:13
Cardiovascular:: Regular rate and rhythm
Respiratory:: Bilateral: Coarse
Lung Excursion:: Normal
Abdomen:: Nontender and Soft
Bowel Sounds:: Normal
Extremity Edema:: +1: Bilateral:
Ratliff Catheter: No
[2025-06-28] MEDS: APRESOLINE 75 MG PO (17:24)
[2025-06-28] MEDS: NOVOLOG FLEXPEN-LOW RESISTANCE 2 UNITS SC (17:25)
[2025-06-28 21:07] LABS: Glucose - Point of Care 246 mg/dl (70-99)
[2025-06-28 23:00] VITALS: BP 154/66
[2025-06-28] MEDS: MELATONIN 5 MG PO (23:09)
[2025-06-28] MEDS: LIPITOR 40 MG PO (23:09)
[2025-06-29 06:00] VITALS: BMI 20.9
[2025-06-29] MEDS: SYNTHROID 112 MCG PO (06:20)
[2025-06-29 07:33] VITALS: BP 157/70
[2025-06-29 07:40] LABS: Hemoglobin 7.5 g/dL (13.0-18.0)
[2025-06-29 07:53] LABS: Glucose - Point of Care 97 mg/dl (70-99)
[2025-06-29] MEDS: NOVOLOG FLEXPEN-LOW RESISTANCE SC (08:43)
[2025-06-29] MEDS: HEPARIN 5000 UNITS SC ×2 (08:45→20:28)
[2025-06-29] MEDS: LANTUS 0.2 UNITS SC (08:45)
[2025-06-29] MEDS: ASPIR LOW (ENTERIC COATED) 81 MG PO (08:46)
[2025-06-29] MEDS: COREG PO (08:52)
[2025-06-29] MEDS: IMDUR (EXTENDED RELEASE) PO (08:53)
[2025-06-29] MEDS: LASIX IV ×2 (08:53→17:12)
[2025-06-29] MEDS: RETACRIT 12000 UNITS IV (08:59)
--- NOTE | 2025-06-29 09:22 | W.PN.HOSP.TC ---
Today's Communication/Plan
-
d/c
Assessment / Plan
Assessment / Plan
Gen: NAD, Awake and alert, appears chronically ill
Eyes: EOMI, PERRLA, no scleral icterus.
Neck: supple.
CV: RRR, +S1/S2, no m/r/g.
Resp: continues to remain CTAB anteriorly
Abd: +BS, soft, NT, ND
Skin: No rashes.
Neuro: CN 2-12 intact, non-focal.
Psych: Normal mood and affect.
CTA chest 06/23: No findings to confirm central pulmonary embolism. Moderate bilateral lower lobe consolidations and moderate bilateral pleural effusions. Widespread bilateral groundglass opacification, right lung greater than left, nonspecific,
possibly related to acute pulmonary edema/CHF. Cardiomegaly.
Acute hypoxemic respiratory failure due to acute on Chronic HFrEF:
-h/o Chronic HFrEF with LVEF 35% from ischemic disease; echo recently with LVEF 53%
-presented with hypoxemia necessitating 4L O2. CXR showed pulmonary congestion and large left pleural effusion.
-s/p L thoracentesis for 1250cc transudative fluid on 06/15/25
-Started on IV Lasix in place of torsemide, 40 mg twice daily, without improvement hypoxia or renal function
-Nephrology started dialysis for ultrafiltration, cont HD as per renal
-GDMT: Coreg, further GDMT limited by JAMAR/CKDV
-cont Imdur/Hydralazine/statin/ASA
-was on 4L NC O2, now weaned to 2L NC O2
-s/p L thoracentesis for 950cc transudative fluid on 06/26
-pulm saw in c/s
JAMAR on CKDV:
-Degree of cardiorenal physiology; creatinine baseline has been near 4.0 during recent hospital stay
-Complicated by anemia of chronic kidney disease; no signs of BMD or acidemia chronically
-Was on on IV Lasix in place of home torsemide due to decompensated heart failure as above
-now on HD as per renal
Acute on chronic anemia of CKDV:
-also pancytopenia
-note, HIT panel NEG
-Likely worsening anemia due to decreased EPO due to JAMAR
-Received erythropoietin stimulating agent
DM2 with hyperglycemia
-Recently with DKA/HHS, status post aggressive IV fluids and insulin protocol with transition back to SQ regimen
-cont Lantus/Novolog/SSI/accuchecks
Chronic hyponatremia, mild
Essential HTN: Cont Coreg/Hydralazine/Imdur/Procardia XL
Hypothyroidism: cont Levoxyl
CAD s/p PCI: cont BB/statin/ASA
HLD: cont statin
FULL/heparin
Remains medically cleared for d/c since , case management aware.
Anticipated Discharge: Today
Subjective/Interval History
-
Date of Service: June 29, 2025
No new complaints.
Objective Data
-
Labs:
Laboratory Results
06/29/25
06:54
Hgb 7.5 L
Vital Signs:
Vital Signs
Temp Pulse Resp BP Pulse Ox
97.9 F 64 16 157/70 95
06/29/25 07:33 06/29/25 07:33 06/29/25 07:33 06/29/25 07:33 06/29/25 07:33
I&O
06/28/25 06/29/25 06/30/25
06:59 06:59 06:59
Intake Total 660 / 660 1440 / 1440
Balance 660 / 660 1440 / 1440
--- NOTE | 2025-06-29 09:26 | CM ---
spoke with Natalee Herring at [facility] still pending for [facility]
pended reference #: [id number]
Updated Stefany Shahid at [facility]
updated Janet Mendoza at [facility]
HD today
PLAN: [facility] acute Rehab, once auth obtained
[2025-06-29 09:59] LABS: Blood Urea Nitrogen 47 mg/dl (9-20); Calcium 8.3 mg/dl (8.4-10.2); Carbon Dioxide 29 mmol/L (22-30); Chloride 94 mmol/L (98-107); Estimated Creatinine Clearance 22 ml/min; Glucose 69 mg/dl (70-99); Potassium 4.0 mmol/L (3.5-5.1); Sodium 132 mmol/L (135-145); eGFR 22.30
[2025-06-29] MEDS: NOVOLOG FLEXPEN SC (10:29)
--- NOTE | 2025-06-29 11:12 | W.PN.NEPH.HD ---
Assessment
-
pt seen during HD
vitals stable
tolerating UF
CVC functions fine
for d/c to [facility] today
BP are high over all may need uptitration of meds once vol stabilized
Progress Note - Hemodialysis
-
Date of Service: June 29, 2025
Duration: 30 minutes and 3 hours
Potassium Bath: 2
Calcium Bath: 2.5
Opti-Dialyzer: 160
Ultrafiltration: Other (3.5-4kg)
Blood Flow: 400
Dialysate Flow: 600
Heparin: no
EPO: [id number]
[2025-06-29] MEDS: IMDUR (EXTENDED RELEASE) 30 MG PO (11:41)
[2025-06-29] MEDS: PROCARDIA XL (EXTENDED RELEASE) 30 MG PO ×2 (11:41→20:32)
[2025-06-29] MEDS: COREG 6.25 MG PO ×2 (11:41→20:36)
[2025-06-29 11:48] VITALS: BP 189/81
[2025-06-29 11:53] LABS: Glucose - Point of Care 168 mg/dl (70-99)
[2025-06-29] MEDS: NOVOLOG FLEXPEN 5 UNITS SC ×2 (13:00→17:34)
[2025-06-29] MEDS: NOVOLOG FLEXPEN-LOW RESISTANCE 1 UNITS SC (13:01)
[2025-06-29 15:28] VITALS: BP 93/45
[2025-06-29 16:52] LABS: Glucose - Point of Care 280 mg/dl (70-99)
[2025-06-29 17:31] VITALS: BP 144/72
[2025-06-29] MEDS: NOVOLOG FLEXPEN-LOW RESISTANCE 3 UNITS SC (17:34)
[2025-06-29] MEDS: APRESOLINE 75 MG PO (17:35)
[2025-06-29] MEDS: LIPITOR 40 MG PO (21:14)
[2025-06-29 21:30] LABS: Glucose - Point of Care 287 mg/dl (70-99)
[2025-06-29 23:00] VITALS: BP 182/83
[2025-06-30] MEDS: SYNTHROID 112 MCG PO (05:44)
[2025-06-30 06:00] VITALS: BMI 19.8
[2025-06-30 07:30] VITALS: BP 159/73
[2025-06-30 08:01] LABS: Glucose - Point of Care 224 mg/dl (70-99)
[2025-06-30] MEDS: LANTUS 0.2 UNITS SC (08:10)
[2025-06-30] MEDS: PROCARDIA XL (EXTENDED RELEASE) 30 MG PO (08:10)
[2025-06-30] MEDS: ASPIR LOW (ENTERIC COATED) 81 MG PO (08:10)
[2025-06-30] MEDS: LASIX 40 MG IV (08:11)
[2025-06-30] MEDS: NOVOLOG FLEXPEN 5 UNITS SC ×2 (08:11→12:46)
[2025-06-30] MEDS: HEPARIN 5000 UNITS SC (08:11)
[2025-06-30] MEDS: NOVOLOG FLEXPEN-LOW RESISTANCE 2 UNITS SC (08:11)
[2025-06-30] MEDS: IMDUR (EXTENDED RELEASE) 30 MG PO (08:11)
[2025-06-30] MEDS: COREG 6.25 MG PO (08:11)
--- NOTE | 2025-06-30 08:12 | W.PN.HOSP.TC ---
Addendum entered and electronically signed by Craig Woo MD 06/30/25 11:34:
Total time spent on d/c = 31 min. This included today's physical exam, progress note, review of laboratory and diagnostic data, preparation of discharge documents and prescriptions, and discussions about the pt's hospital course and discharge plan
with the patient and other medical bill processor involved in the patient's care.
Original Note:
Today's Communication/Plan
-
d/c
Assessment / Plan
Assessment / Plan
Gen: NAD, Awake and alert, appears chronically ill
Eyes: EOMI, PERRLA, no scleral icterus.
Neck: supple.
CV: remains RRR, +S1/S2, no m/r/g.
Resp: dec BS L base
Abd: remains +BS, soft, NT, ND
Skin: No rashes.
Neuro: remains CN 2-12 intact, non-focal.
Psych: Normal mood and affect.
CTA chest 06/23: No findings to confirm central pulmonary embolism. Moderate bilateral lower lobe consolidations and moderate bilateral pleural effusions. Widespread bilateral groundglass opacification, right lung greater than left, nonspecific,
possibly related to acute pulmonary edema/CHF. Cardiomegaly.
Acute hypoxemic respiratory failure due to acute on Chronic HFrEF:
-h/o Chronic HFrEF with LVEF 35% from ischemic disease; echo recently with LVEF 53%
-presented with hypoxemia necessitating 4L O2. CXR showed pulmonary congestion and large left pleural effusion.
-s/p L thoracentesis for 1250cc transudative fluid on 06/15/25
-Started on IV Lasix in place of torsemide, 40 mg twice daily, without improvement hypoxia or renal function
-Nephrology started dialysis for ultrafiltration, cont HD as per renal
-GDMT: Coreg, further GDMT limited by JAMAR/CKDV
-cont Imdur/Hydralazine/statin/ASA
-was on 4L NC O2, now weaned to 2L NC O2
-s/p L thoracentesis for 950cc transudative fluid on 06/26
-pulm saw in c/s
JAMAR on CKDV:
-Degree of cardiorenal physiology; creatinine baseline has been near 4.0 during recent hospital stay
-Complicated by anemia of chronic kidney disease; no signs of BMD or acidemia chronically
-Was on on IV Lasix in place of home torsemide due to decompensated heart failure as above
-now on HD as per renal
Acute on chronic anemia of CKDV:
-also pancytopenia
-note, HIT panel NEG
-Likely worsening anemia due to decreased EPO due to JAMAR
-Received erythropoietin stimulating agent
DM2 with hyperglycemia
-Recently with DKA/HHS, status post aggressive IV fluids and insulin protocol with transition back to SQ regimen
-cont Lantus/Novolog/SSI/accuchecks
Chronic hyponatremia, mild
Essential HTN: Cont Coreg/Hydralazine/Imdur/Procardia XL
Hypothyroidism: cont Levoxyl
CAD s/p PCI: cont BB/statin/ASA
HLD: cont statin
FULL/heparin
Remains medically cleared for d/c since , case management aware.
Anticipated Discharge: Today
Subjective/Interval History
-
Date of Service: June 30, 2025
No new complaints.
Objective Data
-
Vital Signs:
Vital Signs
Temp Pulse Resp BP Pulse Ox
98.5 F 71 18 159/73 97
06/30/25 07:30 06/30/25 07:30 06/30/25 07:30 06/30/25 07:30 06/30/25 07:30
I&O
06/29/25 06/30/25 07/01/25
06:59 06:59 06:59
Intake Total 1440 / 1440 720 / 720
Balance 1440 / 1440 720 / 720
--- NOTE | 2025-06-30 09:27 | CM ---
Addendum entered by Alysa Cruz 06/30/25 12:40:
4:30 TRANSPORT SET - updated Stefany at [place]
Addendum entered by Alysa Cruz 06/30/25 11:33:
Call received from Cathy RODRIGUEZ at [facility] - auth approved for [facility]
auth approval # [id number]
start date 06/30 to 07/09
Cathy stated she will call [place] on Thursday
all authorization information given to Stefany Shahid at [place]
spoke with hospitalist/Dr. Montejo
spoke with patient - IMM n/a
PLAN: [facility]
REPORT #: [phone]
FAX #: [phone]
TRANSPORTATION FORMS ON CHART
Addendum entered by Alysa Cruz 06/30/25 10:26:
spoke with Cathy RODRIGUEZ at [facility] [phone] who stated to refax PT/OT notes to her as she stated she did not receive
CM faxed again to [phone]
Original Note:
KAILEY called [facility]
spoke with Xander at [facility] - auth still pending under review for [facility]
pended reference #: [id number]
CM also called and left message with Freda López at [facility] [phone] to attempt to escalate auth process
CM director also notified
notified Stefany at [place]
PLAN: [facility] acute Rehab, once auth obtained
[2025-06-30 10:51] VITALS: O2SAT 98
[2025-06-30 12:00] LABS: Glucose - Point of Care 440 mg/dl (70-99)
[2025-06-30 12:41] LABS: Glucose 394 mg/dl (70-99)
[2025-06-30] MEDS: NOVOLOG FLEXPEN-LOW RESISTANCE 5 UNITS SC (12:46)
--- NOTE | 2025-06-30 12:57 | W.DCSUMMARY ---
Discharge Summary
Discharge Data
Date of Admission: 06/14/25
Date of Discharge: 06/30/25
-
Pending Results: No
Hospital Course
Primary diagnoses:
Acute hypoxemic respiratory failure due to acute on Chronic HFpEF (h/o HFrEF now with recovered EF)
JAMAR on CKDV, now on hemodialysis
Acute on chronic anemia of CKDV
Secondary diagnoses:
Obstructive sleep apnea
History of medical noncompliance
Type 2 diabetes mellitus with hyperglycemia
Pancytopenia
Chronic hyponatremia
Essential hypertension
Hypothyroidism
Coronary artery disease with history of stenting
Hyperlipidemia
Consultants:
Nephrology
Pulmonary
Imaging:
CXR 06/14/25: CHF with large left and small right pleural effusions with associated atelectasis and/or pneumonia, progressed from prior.
CTA chest 06/23: No findings to confirm central pulmonary embolism. Moderate bilateral lower lobe consolidations and moderate bilateral pleural effusions. Widespread bilateral groundglass opacification, right lung greater than left, nonspecific,
possibly related to acute pulmonary edema/CHF. Cardiomegaly.
CXR 06/27/25: No findings to confirm pneumothorax. Increased right basilar opacity which could represent progression of subsegmental atelectasis and/or pneumonia versus layering small right pleural effusion.
60-year-old male who presented with chief complaint of hypoxemia as outlined in the H&P done on admission.
Acute hypoxemic respiratory failure due to acute on Chronic HFpEF (h/o HFrEF now with recovered EF): The patient presented with hypoxemia necessitating 4L O2. CXR showed pulmonary congestion and large left pleural effusion. He underwent L
thoracentesis for 1250cc transudative fluid on 06/15/25. He was placed on IV Lasix in place of torsemide, 40 mg twice daily, without improvement hypoxia or renal function. Nephrology started dialysis for ultrafiltration. GDMT was with Coreg,
further GDMT was limited by JAMAR/CKDV. He was treated with Imdur/Hydralazine for BP control. He underwent a second thoracentesis for 950cc transudative fluid on 06/26. At the time of discharge he was weaned to 2L NC O2.
JAMAR on CKDV: The patient had a degree of cardiorenal physiology. As above the patient progressed to hemodialysis which he will continue post-discharge.
Acute on chronic anemia of CKDV: The patient also had pancytopenia. Note, HIT panel was NEG. patient's anemia likely worsened due to decreased erythropoietin production due to acute kidney injury. The patient received erythropoietin stimulating
agent while hospitalized.
Discharge Plan
-
Patient Disposition: Shelter/SNF
Discharge Diagnosis/Procedures: Acute hypoxemic respiratory failure due to acute on Chronic HFpEF (h/o HFrEF now with recovered EF), JAMAR on CKDV now progressed to ESRD on HD, Acute on chronic anemia of CKDV
Condition: Fair
Diet: Diabetic, Carb Controlled and Restrict fluids to 48 oz
Activity: As tolerated
Driving Restrictions: Not until seen by your Dr
Blood Work: BMP and CBC in 1 week, script from PCP
Specialty Instructions: Weigh Daily- Call MD for wt gain/loss 3 lbs overnight/5 lbs in 1 week
Instructions: *DCA Heart Failure Instructions
Referrals:
Nelson Sanchez MD [Active, Cardiology] - 07/11/25 8:40 am
Referral Note: You have a cardiology follow up appointment at the [facility] office. Please call with questions.
UNKNOWN - PT DOES,NOT KNOW [Family Provider] - in less than 1 week
Prescriptions:
New
nifedipine 30 mg Tablet Extended Release
30 mg PO BID Qty: 0 0RF
insulin aspart U-100 100 unit/mL (3 mL) Insulin Pen
5 unit SC AC Qty: 0 0RF
Insulin Glargine Lantus [Lantus] 20 UNITS
Subcutaneous Insulin Syringe [Syringe-Insulin] 0 UNIT
As Directed mls/hr SC DAILY
Ordered By: Craig Woo MD
Last Taken: 06/30/25 08:10 0.2 mls
Continued
atorvastatin 40 MG tablet
40 mg PO HS
levothyroxine [Synthroid] 112 mcg Tablet
112 mcg PO DAILY
omega-3 fatty acids Capsule
1,000 mg PO DAILY
aspirin 81 mg Tablet,Delayed Release (Dr/Ec)
81 mg PO DAILY
carvedilol 6.25 mg Tablet
6.25 mg PO BID Qty: 30 0RF
hydralazine 50 mg Tablet
75 mg PO QPM Qty: 30 0RF
isosorbide mononitrate 30 mg Tablet Extended Release 24 Hr
30 mg PO DAILY 30 Days Qty: 30 0RF
hydralazine 50 mg Tablet
50 mg PO DAILY 30 Days Qty: 30 0RF
torsemide 20 mg tablet
20 mg PO DAILY
Discontinued
insulin glargine 100 unit/mL (3 mL) Insulin Pen
15 unit SC DAILY Qty: 0 0RF
insulin aspart U-100 100 unit/mL (3 mL) Insulin Pen
6 unit SC DAILY@1130,1630 Qty: 15 0RF
insulin aspart U-100 100 unit/mL (3 mL) Insulin Pen
8 unit SC DAILY@0730 Qty: 15 0RF
nifedipine 30 mg Tablet Extended Release
30 mg PO DAILY Qty: 30 0RF
insulin aspart U-100 100 unit/mL (3 mL) insulin pen
1 sliding scale dose SC AC
Discharge Orders:
Discharge Patient (As Directed); Ordered 06/30/25
Ordered By: Craig Woo
Discharge Date and Time
Print Language: RUSSIAN
--- NOTE | 2025-06-30 14:03 | W.PN.NEPH.PH ---
Today's Communication / Plan
-
for rehab
Assessment/Plan
-
Assessment
JAMAR
CKD 4
mild hyperkalemia
Acute on chr anemia
CAD s/p PCI
Diabetes mellitus type 2
Hypertension
large left pleural effusion
Acute on chronic Heart failure reduced ejection fraction 35%
FTT
Hyponatremia
Metabolic acidosis
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
Hypothyroidism
Plan
for rehab today
HD tomorrow at rehab
-
-
Date of Service: June 30, 2025
CC / HPI / ROS
-
Chief Complaint:
Shortness of breath
History of Present Illness:
Progressive CKD requiring implementation of dialysis
Hemodynamically stable
Currently on Thursday dialysis schedule
wt decreasing
tolerated HD yesterday
Review of Systems:
no n/v
Remains on O2 2L
No chest pain
Labs
-
Labs:
WBC 4.1 10^3/uL (4.8-10.8) L 06/26/25 06:19
RBC 2.46 10^6/uL (4.70-6.10) L 06/26/25 06:19
Hgb 7.5 g/dL (13.0-18.0) L 06/29/25 06:54
Hct 21.7 % (39.0-52.0) L 06/27/25 08:19
Plt Count 70 10^3/uL (130-400) L D 06/26/25 06:19
Sodium 132 mmol/L (135-145) L 06/29/25 09:30
Potassium 4.0 mmol/L (3.5-5.1) 06/29/25 09:30
Chloride 94 mmol/L (98-107) L 06/29/25 09:30
Carbon Dioxide 29 mmol/L (22-30) 06/29/25 09:30
BUN 47 mg/dl (9-20) H 06/29/25 09:30
Creatinine 3.1 mg/dL (0.7-1.3) H 06/29/25 09:30
eGFR 22.30 06/29/25 09:30
Glucose 394 mg/dl (70-99) H 06/30/25 12:07
Calcium 8.3 mg/dl (8.4-10.2) L 06/29/25 09:30
Eft-I-Adukzrllufd Pept 93650 pg/ml 06/14/25 18:16
Albumin 3.1 g/dl (3.5-5.0) L 06/26/25 06:19
Physical Exam
-
Vital Signs:
Vital Signs
Temp Pulse Resp BP Pulse Ox
98.5 F 71 18 159/73 97
06/30/25 07:30 06/30/25 07:30 06/30/25 07:30 06/30/25 07:30 06/30/25 07:30
Cardiovascular:: Regular rate and rhythm
Respiratory:: Bilateral: Coarse
Lung Excursion:: Normal
Abdomen:: Nontender and Soft
Bowel Sounds:: Normal
Extremity Edema:: +1: Bilateral:
[2025-06-30 15:26] VITALS: BP 144/66
[2025-06-30 16:00] VITALS: BP 149/66
== END 2025-06-30 16:53 | DRG 682 ==
LOC: 3 WEST ACU 21:50
PROVIDERS: Internal Medicine; Internal Medicine Nephrology; Radiology Diagnostic Radiology; Radiology Vascular & Interventional Radiology; Specialist; Student in an Organized Health Care Education/Training Program; ADMITTING PHYSICIAN Internal Medicine; ATTENDING PHYSICIAN Internal Medicine; CONSULT PHYSICIAN Internal Medicine; EMERGENCY PHYSICIAN Emergency Medicine
PROC: 0W9B3ZZ Drainage of Left Pleural Cavity, Percutaneous Approach (ICD-10-PCS; 2025-06-15)
PROC: B5131ZA Fluoroscopy of Right Jugular Veins using Low Osmolar Contrast, Guidance (ICD-10-PCS; 2025-06-16)
PROC: 05HM33Z Insertion of Infusion Device into Right Internal Jugular Vein, Percutaneous Approach (ICD-10-PCS; 2025-06-16)
PROC: 5A1D70Z Performance of Urinary Filtration, Intermittent, Less than 6 Hours Per Day (ICD-10-PCS; 2025-06-17)
PROC: 30233N1 Transfusion of Nonautologous Red Blood Cells into Peripheral Vein, Percutaneous Approach (ICD-10-PCS; 2025-06-17)
DX: N17.9 Acute kidney failure, unspecified (principal); I50.43 Acute on chronic combined systolic (congestive) and diastolic (congestive) heart failure; J96.01 Acute respiratory failure with hypoxia; I13.2 Hypertensive heart and chronic kidney disease with heart failure and with stage 5 chronic kidney disease, or end stage renal disease; D61.818 Other pancytopenia; E87.1 Hypo-osmolality and hyponatremia; E87.20 Acidosis, unspecified; J98.11 Atelectasis; N18.6 End stage renal disease; Z99.2 Dependence on renal dialysis; G47.33 Obstructive sleep apnea (adult) (pediatric); E11.65 Type 2 diabetes mellitus with hyperglycemia; E11.22 Type 2 diabetes mellitus with diabetic chronic kidney disease; E03.9 Hypothyroidism, unspecified; I25.10 Atherosclerotic heart disease of native coronary artery without angina pectoris; Z95.5 Presence of coronary angioplasty implant and graft; E87.5 Hyperkalemia; R62.7 Adult failure to thrive; Z91.148 Patient's other noncompliance with medication regimen for other reason; Z87.891 Personal history of nicotine dependence; Z79.4 Long term (current) use of insulin; Z79.82 Long term (current) use of aspirin; Z79.890 Hormone replacement therapy; Z79.899 Other long term (current) drug therapy; E78.00 Pure hypercholesterolemia, unspecified; I25.5 Ischemic cardiomyopathy
CPT/HCPCS: 32555; 36558; 71045; 71046; 71275; 76937; 77001; 80048; 80051; 80053; 82150; 82945; 82947; 82962; 83615; 83735; 83880; 83986; 84155; 84157; 84478; 85014; 85018; 85025; 85027; 86022; 86704; 86706; 86803; 86850; 86900; 86901; 86920; 87015; 87070; 87102; 87116; 87205; 87206; 87340; 88112; 88305; 89051; 93005; 96374; 97110; 97116; 97162; 97166; 97530; 97535; 99152; 99153; 99285; C1750; G0257; P9016; P9047; Q5106; Q9967

== ENCOUNTER 2025-08-27 13:54 | Emergency (ER) | payer OTHER, SELFPAY ==
[2025-08-27] VITALS (8 sets, daily range): BP systolic 174–228; BP diastolic 84–96; BMI 21.1
--- NOTE | 2025-08-27 14:27 | ED.GENMED ---
History of Present Illness
General
Chief Complaint: Head Injury
Time Seen by Provider: 08/27/25 14:00
History of Present Illness
History of Present Illness:
Richar is a 60-year-old male with past medical history of end-stage renal disease on dialysis, CHF who presents after a slip and fall on ice where he struck his head on the pavement. Sustained a right scalp laceration that was bleeding for EMS.
Pressure dressing was applied. He denies any loss of consciousness. Denies any other pain. States he was on heparin injections up until 2 weeks ago and it was stopped.
Past History
Past History
ED Past Medical History: HTN, Hypercholesterolemia and IDDM
ED Past Surgical History: None
Social History
Tobacco: Former smoker
Alcohol: Occasional
Personal:
Living: with family
Employment: Other
Phy Exam
General Physical Exam
General Presentation: well appearing and no apparent distress
General Skin: warm and dry
General Habitus: normal
General Mental: alert
General Hydration: appears well hydrated
ENT Exam
ENT Exam: EOMI, pharynx normal, neck supple and normocephalic
Eye Exam
Eye Exam: PERRL, cornea clear and conjunctiva normal
Cardiovascular Exam
Cardiovascular Exam: regular rate/rhythm, no edema, no murmur and normal peripheral pulses
Pulmonary Exam
Pulmonary Exam: lungs clear, no respiratory distress, no rales, no crackles, no rhonchi, no stridor, no wheezing and no cough
Gastrointestinal Exam
Gastrointestinal Exam: normal bowel sounds, non tender, soft, no organomegaly, no pulsatile mass and non distended
Neurological Exam
Neurological Exam: alert, oriented x3, no motor deficits and speech normal
Musculoskeletal Exam
Musculoskeletal Exam: full ROM and no edema
Skin Exam
Skin Exam: normal color, warm/dry, no rash, no petechia and other (7 cm laceration to left forehead)
Psychiatric Exam
Psychiatric Exam: normal mood/affect
Course
Orders/Labs/Results
Orders:
Orders
08/27/25 14:03
CT Cervical Spine W/o Iv Contr Urgent
Comment:
Reason For Exam: Head injury
CT Head W/o Iv Contrast Urgent
Comment:
Reason For Exam: Head injury
Vital Signs
Initial and Last Documented VS:
Initial Vital Signs
Temp Pulse Resp BP Pulse Ox
36.6 C 66 16 228/92 95
08/27/25 13:56 08/27/25 13:56 08/27/25 13:56 08/27/25 13:56 08/27/25 13:56
Last Documented Vital Signs
Temp Pulse Resp BP Pulse Ox
36.6 C 68 16 205/86 95
08/27/25 13:56 08/27/25 16:15 08/27/25 13:56 08/27/25 16:00 08/27/25 16:15
Procedures
Laceration Closure
Left Face:
Status of Wound: clean
Size of Wound in cm: 5
Description of Wound Edges: ragged
Preparation: cleaned with saline
Anesthesia: 1% Lidocaine with epi
Revision/Debridement: routine- no revision
Type of Closure: layered closure
Skin Closure Material: 4-0 nylon and other (3-0 Vicryl)
Number of sutures: 8
Additional information:
3 deep sutures
5 sutures and skin
MDM/Problems Addressed
Differential Diagnosis Includes:
Denies any loss of consciousness or anticoagulation use. However given large bleeding scalp laceration CT head obtained and negative for any acute intracranial hemorrhage. CT cervical spine obtained and also negative for injury. Laceration was
covered and irrigated with saline. Upon irrigation wound began to bleed and bleeding vessel was identified. This was ligated using 3-0 Vicryl suture and an additional 2 deep sutures were placed to close subcu tissues. Skin was then closed using
nylon sutures. Patient tolerated the procedure well. The sutures will need to be removed in 5 days. Return precautions discussed with the patient. He feels well and would like to go home.
*Pulse Oximetry
SaO2: 94
Oxygen Mode of Delivery: Room air
Patient hypoxic: no
*Critical Care Note
Total Time (30-74mins, 75-104mins- exclusive of procedures): Not Applicable
ED Attending Note
-
Portions of this chart may have been created with voice recognition software.� Occasional wrong word or��sound alike� substitutions may have occurred due to the inherent limitations of voice recognition software.
Discharge Plan
Departure
Patient Disposition: Home (Routine Discharge)
Date of Disposition: 08/27/25
Time of Disposition: 16:39
Patient with high blood pressure during this ER visit?: Yes
Discharge Problem:
Fall, Forehead laceration
Instructions: Laceration Repair With Stitches (DC), Minor Head Injury (DC)
Prescriptions:
No Action
atorvastatin 40 MG tablet
40 mg PO HS
levothyroxine [Synthroid] 112 mcg Tablet
112 mcg PO DAILY
omega-3 fatty acids Capsule
1,000 mg PO DAILY
aspirin 81 mg Tablet,Delayed Release (Dr/Ec)
81 mg PO DAILY
carvedilol 6.25 mg Tablet
6.25 mg PO BID Qty: 30 0RF
hydralazine 50 mg Tablet
75 mg PO QPM Qty: 30 0RF
isosorbide mononitrate 30 mg Tablet Extended Release 24 Hr
30 mg PO DAILY 30 Days Qty: 30 0RF
hydralazine 50 mg Tablet
50 mg PO DAILY 30 Days Qty: 30 0RF
torsemide 20 mg tablet
20 mg PO DAILY
nifedipine 30 mg Tablet Extended Release
30 mg PO BID Qty: 0 0RF
insulin aspart U-100 100 unit/mL (3 mL) Insulin Pen
5 unit SC AC Qty: 0 0RF
Insulin Glargine Lantus [Lantus] 20 UNITS
Subcutaneous Insulin Syringe [Syringe-Insulin] 0 UNIT
As Directed mls/hr SC DAILY
Ordered By: Craig Woo MD
Last Taken: Unknown
Referrals:
UNKNOWN - PT DOES,NOT KNOW [Family Provider]
Activity Restrictions/Additional Instructions:
You were seen in the Emergency Department after a fall. CT imaging of your head and neck were negative for any injury. Laceration was repaired with stitches. The stitches will need to be removed in 5 days. You can have them removed at your
primary care doctor's office or at an urgent care. While in the ER your pressure was elevated. Please follow-up with your primary care physician regarding this.
Interventions
Interventions:
*General Assessment Last Done: 08/27/25 14:14
*Neglect/Abuse Screening Last Done: 08/27/25 14:14
[facility] Risk Assessment Tool Last Done: 08/27/25 13:54
*Risk Screen - Suicide (C-SSRS) Last Done: 08/27/25 14:14
ED- Neurological Assessment Last Done: 08/27/25 14:14
ED-Skin Assessment Last Done: 08/27/25 14:14
Discharge Date and Time
Print Language: COMORAN
[2025-08-27] MEDS: TYLENOL 1000 MG PO (20:31)
== END 2025-08-27 20:35 | disposition home or self-care (01) ==
LOC: EMR 13:54
PROVIDERS: EMERGENCY PHYSICIAN Emergency Medicine
DX: S01.81XA Laceration without foreign body of other part of head, initial encounter (principal); W00.0XXA Fall on same level due to ice and snow, initial encounter; E10.22 Type 1 diabetes mellitus with diabetic chronic kidney disease; I13.2 Hypertensive heart and chronic kidney disease with heart failure and with stage 5 chronic kidney disease, or end stage renal disease; N18.6 End stage renal disease; I50.9 Heart failure, unspecified; E78.00 Pure hypercholesterolemia, unspecified; Z99.2 Dependence on renal dialysis; Z79.4 Long term (current) use of insulin; Z79.82 Long term (current) use of aspirin; Z87.891 Personal history of nicotine dependence
CPT/HCPCS: 99284; 12052; 70450; 72125; 73502; 73552